=== PATIENT | female | born 1975 | race Caucasian/White ===

== ENCOUNTER 2017-07-20 00:53 | Inpatient (IN) | payer OTHER ==
[2017-07-20] MEDS ORDERED: Morphine 4 MG/ML Carpuject ONE (02:23)
[2017-07-20] MEDS ORDERED: hydrALAZINE 25 MG TAB ONE (02:24)
[2017-07-20] MEDS ORDERED: Amlodipine 5 MG TAB ONE (02:24)
[2017-07-20] MEDS ORDERED: Morphine 2 MG/ML SYRINGE ONE (02:24)
[2017-07-20] MEDS ORDERED: Hydrochlorothiazide 25 MG TAB PO SCH (02:30)
[2017-07-20] MEDS ORDERED: Carvedilol 25 MG TAB PO SCH (02:30)
[2017-07-20] MEDS ORDERED: hydrALAZINE 20 MG/ML VIAL ONE (03:22)
[2017-07-20] MEDS ORDERED: Dextrose 5% in Water 1,000 ML IV PRN (04:26)
[2017-07-20] MEDS ORDERED: Ondansetron ODT 4 MG TAB PO PRN (04:26)
[2017-07-20] MEDS ORDERED: Dextrose 50% Abboject 50 ML SYRINGE SLOW IVP PRN (04:26)
[2017-07-20 04:29] VITALS: BMI 30.9
[2017-07-20] MEDS ORDERED: Labetalol HCl 100 MG/20 ML VIAL SLOW IVP PRN (04:53)
[2017-07-20] MEDS ORDERED: hydrALAZINE 20 MG/ML VIAL SLOW IVP PRN (04:53)
[2017-07-20] MEDS: Sodium Chloride 0.9% 1,000 ML IV SCH ×3 (05:01→17:14)
[2017-07-20] MEDS: Piperacillin/Tazobactam 3.375 GM in Sodium Chloride 0.9% 100 ML IVPB SCH ×2 (06:08→11:10)
[2017-07-20] MEDS: Morphine 4 MG/ML Carpuject SLOW IVP PRN ×4 (06:36→18:02)
--- NOTE | 2017-07-20 06:49 | HP-2 ---
DATE OF ADMISSION: 07/20/2017 CODE STATUS: FULL. PRIMARY CARE PHYSICIAN: None. ATTENDING: Dr. Caballero. RESIDENT: Dr. Morton. HISTORIAN: Self. CHIEF COMPLAINT: Foot pain. HISTORY OF PRESENT ILLNESS: This is a 41-year-old female with past medical history of diabetes, vinh nary artery disease, hypertension who presented due to sores on the right foot that has been there si . The patient reported that they started hurting worse 3-4 days ago. There was an e schar that developed on the toe and then on the ball of her foot, it got more and more painful like i t was infected. The patient has never had anything like this happened before and never had any episo mika of osteomyelitis in the past. She also reports never having any diabetic foot infections or ulce rs. The patient finished treatment for Bactrim resistant UTI 3 weeks ago with Keflex. She also lost her insurance about a year and a half ago and has been taking her blood pressure medicines and insul in, but has not been taking her oral diabetes medicines or Plavix. Her blood sugars have been runnin g in the 300-400 routinely. In the ER, she was given metoprolol 5 mg IV push x2, vancomycin 1 gram, Zosyn 3.375 grams, Novolin 10 units subcu, morphine 4 mg, Zofran 4 mg, Coreg 12.5 mg, hydralazine 50 mg, amlodipine 10 mg, morphine 6 mg, Humulin 10 mg IV push. PAST MEDICAL HISTORY: 1. Diabetes type 2. 2. Hypertension. 3. Coronary artery disease. 4. Chronic kidney disease stage 3. PAST SURGICAL HISTORY: 1. x2. 2. L5 through S1 diskectomy. 3. Tonsillectomy. ALLERGIES: LISINOPRIL. MEDICATIONS: 1. Metformin 1000 mg b.i.d. with meals. 2. Amlodipine 10 mg p.o. b.i.d. 3. Aspirin 325 mg p.o. daily. 4. Atorvastatin 20 mg p.o. at bedtime. 5. Carvedilol 12.5 mg p.o. b.i.d. 6. Glyburide 5 mg p.o. b.i.d. with meals. 7. Hydralazine 100 mg p.o. t.i.d. 8. Hydrochlorothiazide 12.5 mg p.o. daily. 9. Levemir 50 units subcutaneously b.i.d. FAMILY HISTORY: Mother with coronary artery disease at 58, diabetes, hyperlipidemia, hypertension. Paternal grandparents with diabetes. SOCIAL HISTORY: Used to smoke 1 pack per day for about 25 years, but since her heart attack, has onl y smoked few cigarettes a day. Drinks alcohol socially. Denies any drug use. REVIEW OF SYSTEMS: General: Denies fever, chills, fatigue. Eyes: Denies vision changes or eye pepito n. ENT: Positive for nasal congestion, rhinorrhea, sore throat. Respiratory: Positive for cough. Negative for shortness of breath. Cardiovascular: Negative for chest pain, edema. Gastrointestinal: Positive for nausea. Negative for vomiting. Positive for abdominal pain. Genitourinary: Positive for dysuria, polyuria. Skin: Positive for rashes, lesions. Musculoskeleta l: Positive for pain or tenderness. Neurologic: Negative for weakness, numbness. PHYSICAL EXAMINATION: VITAL SIGNS: Blood pressure 213/107, pulse 75, respiratory rate 18, temperature 98.8, pulse ox 97% o n room air. Current weight 99.7 kilograms. GENERAL: Alert, oriented x3, no acute distress, obese, appropriately interactive. EYES: Extraocular muscles intact. Conjunctivae within normal limits. ENT: Nasal mucosa within normal limits. NECK: Supple, no lymphadenopathy. CARDIOVASCULAR: Regular rate and rhythm. No murmurs, gallops, 2+ radial and pedal pulses. RESPIRATORY: Normal effort, no retractions, clear to auscultation bilaterally. SKIN: No cyanosis. Erythematous patch and the abdominal skin fold and right foot warmth and erythem a with an eschar over the right toe and fluctuance over the right ball of the foot with a callus. ABDOMEN: Soft, nontender to palpation. Normoactive bowel sounds. No mass or distention. EXTREMITIES: No cyanosis or edema. MUSCULOSKELETAL: Structure, tone within normal limits. Full range of motion. NEUROLOGIC: No focal deficits. GCS 15. PSYCHIATRIC: Appropriate. LABORATORY DATA AND X-RAY FINDINGS: WBC 11.0, hemoglobin 14.4, hematocrit 41.4, platelets 235. Sodi um 127, corrected to 135, potassium 3.8, chloride 91, CO2 23, BUN 19, creatinine 1.78, GFR 31, glucos e 590, calcium 9.6, AST 36, ALT 34, alkaline phosphatase 154, total bilirubin 0.4. ESR 73, lactic ac id 1.7. Beta hydroxybutyrate 0.08. Urinalysis showed trace blood, greater than 300 protein, positiv e nitrites, 500 glucose, 7-10 RBCs, 4-6 white blood cells and 4+ bacteria. Foot x-ray showed osteomy elitis of the distal phalanx of the right great toe with ulceration and wound involving the distal an d plantar aspect of the right great toe. ASSESSMENT AND PLAN: This is a 41-year-old female who presents with: 1. Acute osteomyelitis of the right great toe and infected diabetic wound. This is likely secondary to uncontrolled diabetes type 2. The patient has ESR of 73, osteo on x-ray, white count of 11.0. W e will consult surgery in the morning and make the patient n.p.o. Continue vancomycin and Zosyn. We will give NS at 175. We will treat with morphine for pain control. We will check blood cultures. 2. Hyperglycemia. The patient has not had good glucose control with her glucoses running, 300-400 l ately. We will give NS at 175. There is no concern at this time for diabetic ketoacidosis or hypero smolar hyperglycemic state. We will continue home Levemir dose with aggressive sliding scale insulin and Accu-Cheks a.c. and at bedtime. We will consult Case Management as the patient has lost her ins urance and is using her daughter's insulin, to try and help her find a better way to get her medicati ons. 3. Hypertensive urgency. Blood pressure greater than 200/100 in the ED. We will control with home blood pressure medicines, labetalol and hydralazine as needed. 4. Acute kidney injury on chronic kidney disease stage 3, likely secondary to hyperglycemia. We jared l give NS at 175 and repeat basic metabolic panel in the morning. 5. Urinary tract infection. The patient recently treated for urinary tract infection resistant to B actrim that was treated with Keflex, will likely be covered by vancomycin and Zosyn. We will check a urine culture and sensitivities from outside hospital. 6. Tinea cruris. We will treat with clotrimazole cream b.i.d. 7. Coronary artery disease. The patient no longer taking Plavix due to losing insurance, will mt nue aspirin. 8. Diabetes type 2. Hold metformin due to acute kidney injury. We will continue other home medicat ions, Accu-Cheks and sliding scale insulin. 9. Hypertension. Continue home medications. 10. Venous thromboembolism prophylaxis. Lovenox. DISPOSITION: Admit to medical. Symptomatic medications will be provided. History and physical exam as well as management discussed with Dr. Caballero.
[2017-07-20] MEDS: Hydrochlorothiazide 25 MG TAB PO SCH (08:51)
[2017-07-20] MEDS: Amlodipine 10 MG TAB PO SCH ×2 (08:51→20:38)
[2017-07-20] MEDS: hydrALAZINE 25 MG TAB PO SCH ×3 (08:52→20:38)
[2017-07-20] MEDS: glyBURIDE 5 MG TAB PO SCH ×2 (08:53→16:26)
[2017-07-20] MEDS: Carvedilol 25 MG TAB PO SCH ×2 (08:53→20:37)
[2017-07-20] MEDS: Enoxaparin Sodium 40 MG/0.4 ML SYRINGE SC SCH (08:55)
[2017-07-20] MEDS: Clotrimazole 1 % Cream 30 GM TUBE TOP SCH ×2 (08:55→20:44)
[2017-07-20] MEDS: Aspirin 325 MG TAB PO SCH (08:55)
[2017-07-20] MEDS: Insulin Detemir 100 UNITS/ML 50 UNITS in Pre-Filled Syringe 1 EACH SC SCH (09:00)
[2017-07-20] MEDS ORDERED: FLU VACC QS2017-18 36 mo. & older 0.5 ML SYRINGE IM ONE (09:00)
--- NOTE | 2017-07-20 10:49 | CON ---
DATE OF CONSULTATION: 07/20/2017 HISTORY OF PRESENT ILLNESS: Kiesha Goldman is a 41-year-old female diabetic with chronic kidney dise ase, hypertension on oral hypoglycemics at home. She was evaluated and admitted 07/20/2017 early thi s morning to [facility] because of pain in her foot. She has pain in her right great to e. She has developed a blister beneath the metatarsophalangeal joint of the great toe. She has a ca llus over the tip of the right great toe. The patient had been treated with Bactrim for a UTI recent ly. She has recently acquired insurance. Reported that her Accu-Cheks have been poorly controlled, 300-400 range. X-rays reveal osteomyelitis of the distal phalanx, right great toe, otherwise no othe r remarkable bony changes. ALLERGIES: LISINOPRIL. TOBACCO: A pack a week. ALCOHOL: Alcohol socially rarely. MEDICATIONS: At home, she is on insulin 50 units subcu b.i.d., glyburide 5 mg p.o. b.i.d., hydrochlo rothiazide 12.5 mg daily, Coreg 12.5 mg b.i.d., atorvastatin 20 mg at bedtime, aspirin 325 mg daily, amlodipine 10 mg b.i.d., metformin 1000 mg b.i.d., hydralazine 100 mg p.o. t.i.d. PAST SURGICAL HISTORY: Three C-sections, lumbar surgery. She has mild low back pain which she takes Aleve for. The patient had an echocardiogram 03/2016, Dr. Mckeon, LV function 50-55%, grade 2 of 3 diastolic dys function, left atrial enlargement, aortic valve sclerosis, mild MR, TR. Cardiac catheterization, Dr. Ma 03/2016; 40-50% stenosis, circumflex N0 M2. Right coronary was small with proximal occlus ion and bridging collaterals. 03/10/2017, nuclear stress test, 52% ejection fraction, hypokinesis of the inferior wall, perhaps artifactual. No definite reversible ischemia. CTA 03/09/2017 negative. PHYSICAL EXAMINATION: VITAL SIGNS: Height 5 foot 11, 221 pounds, 30 BMI, 98.6, 83, 166/87. HEENT: Unremarkable. LUNGS: Clear to auscultation. CARDIAC: Regular rate and rhythm without murmur or gallop. ABDOMEN: Soft, nontender, no masses. EXTREMITIES: Unremarkable. Palpable femoral, popliteal, dorsalis pedis, posterior tibial pulses. R ight great toe distal phalanx has a hypertrophic callus, but no obvious cellulitis. There is a blist er beneath the metatarsophalangeal joint of the right great toe. This is tender. There is no cellul itis. At the bedside with alcohol prep, I debrided a callus from the tip of the right great toe and the underlying tissue was healthy. There are no sinus tracts to the phalanx which has osteo radiolog ically. I debrided of the callus at the metatarsophalangeal joint of the right great toe and there i s a large undermining infection with pus which was cultured and drained and callus blistered tissue r emoved. Wound care applied a dressing. Beneath this callus on the right great toe which was culture d the underlying tissue is intact. There are no sinus tracts. ASSESSMENT AND PLAN: 1. Diabetic blister with infection beneath the metatarsophalangeal joint of the right great toe. Ra diologically there are no underlying infection or osteomyelitis. Would treat this with intravenous a ntibiotics. 2. Osteomyelitis of the right great toe distal phalanx. I have consulted Dr. Russell. The patient do es not need surgical intervention. I would await Dr. Russell's recommendation as far as antibiotics, p robably should avoid the combination of Zosyn and vancomycin due to the patient's chronic kidney dise ase. I will let Dr. Russell make these changes. I will need to see the patient as an outpatient in next 2 weeks to follow this wound. She should keep her weight off of her heel during her convalesc ed to avoid ulcerations. 3. Morbid obesity with BMI of 30. I encouraged weight reduction. 4. Type 2 diabetes mellitus, insulin-dependent. 5. Hypertension. 6. Chronic kidney disease. 7. Minimal coronary disease, status post cardiac catheterization and echocardiogram as noted above, LV function is normal, no definite evidence of coronary disease, no coronary history.
[2017-07-20] MEDS: Acetaminophen 325 MG TAB PO PRN ×2 (11:08→18:32)
[2017-07-20] MEDS ORDERED: Losartan 25 MG TAB PO SCH (11:30)
--- NOTE | 2017-07-20 11:41 | CON ---
DATE OF CONSULTATION: 07/20/2017 REASON FOR CONSULTATION: Elevated creatinine and proteinuria. HISTORY OF PRESENT ILLNESS: This is a very pleasant 41-year-old female with a history of known CKD a nd toxemia presented to the hospital with debridement of an ulcer of the foot. The patient at this t terrence denies any nausea, vomiting or chest pain. Patient has had diabetes and hypertension for many ye ars and has chronic kidney disease stage 3. The patient had taken lisinopril with a cough so quit ta cassy that in the past. The patient denies headache, numbness, tingling or weakness. Denies any diab etic retinopathy. PAST MEDICAL HISTORY: Type 2 diabetes mellitus, hypertension, coronary artery disease, chronic kidne y disease stage 3, , L5 lumbar surgery, tonsillectomy. ALLERGIES: LISINOPRIL. HOME MEDICATIONS: List reviewed. HOSPITAL MEDICATIONS: List reviewed. FAMILY HISTORY: Negative for ESRD. SOCIAL HISTORY: No alcohol or drug use. REVIEW OF SYSTEMS: Fifteen point review of systems was performed and negative except positives noted above. GENERAL: Weakness- HEAD: Headache- NECK: No swelling or lumps. NOSE: No epistaxis or discharge. EYES: No diplopia or pain. RESPIRATORY: Dyspnea- CARDIOVASCULAR: Chest pain- GASTROINTESTINAL: Nausea- /LOFT WORKER: Hematuria- MUSCULOSKELETAL: No joint pain. NEUROPSYCHIATIC SYSTEMS: No suicidal ideation. No ideation. SKIN: Denies any rash or ulcer. CONSTITUTIONAL: No fever or chills. PHYSICAL EXAMINATION: GENERAL: Patient is awake, alert. VITAL SIGNS: Afebrile, pulse 70, breathing at 16, blood pressure 166/87. OBJECTIVE: See above. Awake, alert, in no acute distress. GENERAL APPEARANCE AND MENTAL STATUS: Fair. HEAD/NECK: Normocephalic. Atraumatic. EYES: EOMI. No deformity. EARS: Clear. No ulcers. NOSE: Intact. No lesions. MOUTH: Clear. No discharge. THROAT: Clear. No exudate. LUNGS: Clear. No crackles. CARDIAC: S1, S2. No rub. ABDOMEN: Benign. BS+. GENITALIA/RECTUM: Sutherland absent. BACK/EXTREMITIES: Edema 0+ Ulcer- NEUROLOGICAL: Alert and motor intact. SKIN: Skin change per Dr. Amezcua. LYMPHATICS: Edema- Ulcer- LABORATORY: Creatinine 1.7 done yesterday. ASSESSMENT AND RECOMMENDATIONS: 1. Acute kidney injury with chronic kidney disease and proteinuria, most likely due to diabetic neph ropathy. Renal ultrasound was unremarkable done in 2016. I will modify risk factors and advised the patient for excellent diabetes control. 2. Anemia, stable. 3. Hypertension, stable. 4. Proteinuria, will start low dose of angiotensin receptor cesar and baseline creatinine. The risks versus benefits of all the above findings were discussed and all questions were answered.
[2017-07-20] MEDS: HumaLOG 300 UNITS/3 ML VIAL SC PRN (11:45)
[2017-07-20 12:12] LABS: Anion Gap 16 mmol/L (10-20); BUN (Urea Nitrogen) 15 mg/dL (7.0-18.7); Calc. Creatinine Clearance 78 mL/min (70-130); Calcium 8.5 mg/dL (7.8-10.44); Carbon Dioxide 19 mmol/L (22-29); Chloride 97 mmol/L (98-107); Estimated GFR-MDRD 39; Glucose 414 mg/dL (70-105); Potassium 4.5 mmol/L (3.5-5.1); Sodium 127 mmol/L (136-145)
--- NOTE | 2017-07-20 12:17 | OP ---
PREOPERATIVE DIAGNOSES: Blister infection, right foot plantar metatarsophalangeal joint without comm unication to the tissues and without radiological evidence of osteomyelitis. Osteomyelitis of the di stal phalanx of right great toe with overlying callus without underlying sinus tract. POSTOPERATIVE DIAGNOSES: Blister infection, right foot plantar metatarsophalangeal joint without com munication to the tissues and without radiological evidence of osteomyelitis. Osteomyelitis of the d istal phalanx of right great toe with overlying callus without underlying sinus tract. PROCEDURES: Sharp debridement excisional removal of diabetic callus, right great toe and excision of diabetic blistered skin. Sharp excision of skin only from the right great toe and underlying planta r right foot beneath the metatarsophalangeal joint of great toe. Culture and sensitivity of the puru lent material beneath the blister plantar right great toe. SURGEON: Dr. Devendra Amezcua. ANESTHESIA: None. Alcohol pad prep. DESCRIPTION OF PROCEDURE: The patient is in the bedside, alcohol pad prep used and skin and diabetic callus excised from the tip of the right great toe. Beneath that, there was no underlying sinus tra ct communication to deep tissues. This was superficial. The blister beneath the metatarsophalangeal joint of the right great toe was sharply excised and skin only, excising it with a 10 blade and using a 10 blade for both the right great toe and plantar foot . Underlying tissue was intact without deep sinus tracts to the underlying tissue. Wound care team arrived and placed a wound dressing.
[2017-07-20] MEDS ORDERED: cefTRIAXone\\ROCEPHIN 2 GM in Sodium Chloride 0.9% 100 ML IVPB SCH (13:00)
[2017-07-20] MEDS: CEFTRIAXONE 2GM/50 ML BAG 2 GM in Premix Bag 1 BAG IVPB SCH (13:59)
[2017-07-20 14:43] LABS: Creatinine, Urine 42.21 mg/dL (47-110)
[2017-07-20] MEDS ORDERED: traMADol HCl 50 MG TAB PO SCH (14:45)
--- NOTE | 2017-07-20 14:50 | CON ---
DATE OF CONSULTATION: 07/20/2017 REASON FOR CONSULTATION: Right foot inflammatory process. HISTORY OF PRESENT ILLNESS: A 41-year-old whom I had seen in the past for complications related to type 2 diabetes mellitus and neuropathy with left first toe infection. At that time, she did not have evidence of osteomyelitis. At this time, she was brought in and admitted because of progressive worsening right foot pain associated with ulcerations in the bottom of the right foot and an eschar. She had no fever, but she felt chills, recently had been given treatment for "UTI" with Keflex. PAST MEDICAL HISTORY: Type 2 diabetes, hypertension, coronary artery disease, insufficiency stage 3. PAST SURGICAL HISTORY: , diskectomy L5-S1 and tonsillectomy. ALLERGIES: LISINOPRIL with cough. MEDICATIONS: Metformin, Norvasc, aspirin, atorvastatin, Coreg, glyburide, hydralazine and Levemir. FAMILY HISTORY: Coronary artery disease, diabetes and hypertension. SOCIAL HISTORY: Former smoker. PHYSICAL EXAMINATION: VITAL SIGNS: T-max 98.6, blood pressure 120/81, pulse 77, respirations 16 and O2 sat 97% to 98%. GENERAL: Appears in no distress, pleasant. SKIN: Remarkable for thick callus at the bottom of the first MPJ on admission and an ulcerated area at the tip of the toe with some swelling of the toe distal phalanx with minimal erythema. No lymphadenopathy. HEENT: Noncontributory. NECK: Supple. LUNGS: With symmetric clear breath sounds. HEART: S1, S2, regular rate. No S3 or S4. ABDOMEN: Soft, not distended or tender. No ascites. No bladder distention. EXTREMITIES: No joint inflammatory activity. Pulses are 1+ in dorsalis pedis and posterior tibialis. Able to move all extremities equally. NEUROLOGIC: Cognitive function appears to be intact. LABORATORY DATA: White cell count 11, hemoglobin 14, MCV 39, platelets 235 with normal differential. Sodium 130 and creatinine 1.78. Baseline is 1.02. The last liver profile from this admission with slight elevation AST and alkaline phosphatase, bilirubin normal. Troponin normal. Urinalysis with 4-6 wbc's. Microbiology: We have a toe bacterial culture, preliminary result with moderate gram-positive cocci to be further identified sharing negative influenza test. ASSESSMENT AND PLAN: Type 2 diabetes, neuropathy and this time, the right first toe, distal chronic ulcer with evidence of osteomyelitis by plain films. Dr. Amezcua did a limited incision and drainage and did not find any fistulous communication with bone. At this time, we will continue conservative management with IV antimicrobial therapy, PICC line placement and wait for the results of the culture and then plan disposition after that. MARIANA
[2017-07-20] MEDS ORDERED: Mag-Al 1200 mg/1200 mg/30 ML UDCUP PO PRN (16:03)
[2017-07-20] MEDS: HumaLOG 300 UNITS/3 ML VIAL SC SCH (16:29)
[2017-07-20] MEDS ORDERED: Fluconazole 100 MG TAB PO SCH (17:00)
[2017-07-20] MEDS: Atorvastatin Calcium 20 MG TAB PO SCH (20:38)
[2017-07-20] MEDS ORDERED: Insulin Detemir 100 UNITS/ML 50 UNITS in Pre-Filled Syringe 1 EACH SC SCH (21:00)
[2017-07-20] MEDS: Vancomycin HCl 1.5 GM in Sodium Chloride 0.9% 250 ML 300 ML IVPB SCH (22:29)
[2017-07-20] MEDS: Morphine 2 MG/ML SYRINGE SLOW IVP PRN (22:29)
[2017-07-21] MEDS: Morphine 2 MG/ML SYRINGE SLOW IVP PRN ×5 (02:41→22:57)
[2017-07-21 04:25] LABS: #Basophils 0.1 thou/uL (0.0-0.2); #Eosinphils 0.2 thou/uL (0.0-0.7); #Lymphocytes 2.8 thou/uL (1.20-3.40); #Monocytes 0.3 thou/uL (0.11-0.59); #Neutrophils 5.4 thou/uL (1.40-6.50); %Basophils 1.1 % (0.0-1.0); %Eosinophils 1.9 % (0.0-10.0); %Lymphocytes 31.4 % (21.0-51.0); %Monocytes 3.8 % (0.0-10.0); %Neutrophils 61.8 % (42.0-75.0); Hemoglobin 12.7 g/dL (12.0-16.0); Mean Corpuscular HGB CONC 33.7 g/dL (32.0-36.0); Mean Corpuscular Hemoglobin 30.3 pg (27.0-31.0); Mean Corpuscular Volume 90.1 fl (81.0-99.0); Platelet Count 207 thou/uL (130-400); RBC Distribution Width 11.4 % (11.5-14.5); Red Blood Cell (RBC) Count 4.18 mill/uL (4.20-5.40); White Blood Cell (WBC) Count 8.8 thou/uL (4.8-10.8)
[2017-07-21 04:44] LABS: Anion Gap 13 mmol/L (10-20); BUN (Urea Nitrogen) 17 mg/dL (7.0-18.7); Calc. Creatinine Clearance 81 mL/min (70-130); Calcium 8.3 mg/dL (7.8-10.44); Carbon Dioxide 21 mmol/L (22-29); Chloride 99 mmol/L (98-107); Estimated GFR-MDRD 40; Glucose 402 mg/dL (70-105); Potassium 4.1 mmol/L (3.5-5.1); Sodium 129 mmol/L (136-145)
[2017-07-21] MEDS: HumaLOG 300 UNITS/3 ML VIAL SC PRN ×2 (04:54→20:32)
[2017-07-21] MEDS: Amlodipine 10 MG TAB PO SCH ×2 (07:53→20:31)
[2017-07-21] MEDS: Hydrochlorothiazide 25 MG TAB PO SCH (07:53)
[2017-07-21] MEDS: Carvedilol 25 MG TAB PO SCH ×2 (07:55→20:31)
[2017-07-21] MEDS: glyBURIDE 5 MG TAB PO SCH ×2 (07:56→17:00)
[2017-07-21] MEDS: hydrALAZINE 25 MG TAB PO SCH ×3 (07:56→20:30)
[2017-07-21] MEDS: Aspirin 325 MG TAB PO SCH (07:56)
[2017-07-21] MEDS: Enoxaparin Sodium 40 MG/0.4 ML SYRINGE SC SCH (07:57)
[2017-07-21] MEDS: Insulin Detemir 100 UNITS/ML 50 UNITS in Pre-Filled Syringe 1 EACH SC SCH (07:57)
[2017-07-21] MEDS: HumaLOG 300 UNITS/3 ML VIAL SC SCH ×3 (07:57→17:00)
[2017-07-21] MEDS: Clotrimazole 1 % Cream 30 GM TUBE TOP SCH ×2 (08:06→20:56)
[2017-07-21] MEDS ORDERED: Losartan 25 MG TAB PO SCH ×2 (09:00→11:00)
--- NOTE | 2017-07-21 11:06 | PDOC.FM ---
- Subjective Subjective: No acute events overnight. Denies cp, nvdc, sob. Pain improved. - Objective Vital Signs & Weight: Vital Signs (12 hours) Temp Pulse Resp BP BP Pulse Ox 07/21/17 08:00 98.3 F 73 16 96 07/21/17 07:56 73 157/95 H 07/21/17 07:53 73 157/95 H 07/21/17 07:23 98.3 F 73 16 157/95 H 96 Weight Admit Weight 100.38 kg Weight 100.38 kg I&O: 07/20/17 07/21/17 07/22/17 06:59 06:59 06:59 Intake Total 400 2861 Balance 400 2861 Result Diagrams: 07/21/17 03:39 07/21/17 03:39 Phys Exam - Physical Examination Constitutional: NAD HEENT: PERRLA, sclera anicteric Neck: no nodes, no JVD Respiratory: no wheezing, no rales, no rhonchi, clear to auscultation bilateral Cardiovascular: RRR, no significant murmur Gastrointestinal: soft, non-tender, no distention, positive bowel sounds Musculoskeletal: no edema, pulses present rt foot wound dressing in place Neurological: non-focal, moves all 4 limbs Skin: no rash Dx/Plan (1) Osteomyelitis Code(s): M86.9 - OSTEOMYELITIS, UNSPECIFIED Status: Acute (2) CKD (chronic kidney disease) stage 3, GFR 30-59 ml/min Status: Chronic (3) DM type 2 (diabetes mellitus, type 2) Status: Chronic Qualifiers: Diabetes mellitus complication status: with hyperglycemia Diabetes mellitus skilled nursing insulin use: with ocean transportation intermediary use Qualified Code(s): E11.65 - Type 2 diabetes mellitus with hyperglycemia; Z79.4 - extermination inspector (current) use of insulin (4) HTN (hypertension) Code(s): I10 - ESSENTIAL (PRIMARY) HYPERTENSION Status: Chronic Qualifiers: Hypertension type: essential hypertension Qualified Code(s): I10 - Essential (primary) hypertension (5) Hyponatremia Code(s): E87.1 - HYPO-OSMOLALITY AND HYPONATREMIA Status: Acute - Plan Plan: Osteo: ID consulted, continue IV abx, appreciate recs, micro gram + cocci and enterococcus Gen surg consulted, wound debrided, wound care, appreciate recs CKD: nephro consulted, no iv sticks above the wrist, per gen surg recs DMII: Elevated BS, increase meal time insulin to 20U, increase basal to 60U BID , aggressive SSI HTN: Increased bp, constinue current meds, maximize current medications as pressure tolerates
[2017-07-21] MEDS: CEFTRIAXONE 2GM/50 ML BAG 2 GM in Premix Bag 1 BAG IVPB SCH (11:42)
--- NOTE | 2017-07-21 11:43 | PRG ---
DATE OF SERVICE: 07/21/2017 SUBJECTIVE: Ms. Kiesha Goldman is doing well today. She is afebrile. Her sores on her foot has sli ghtly improved, although it still bothers her. Cultures from the purulent material beneath the blist er under her foot reveals Enterococcus. The patient has osteomyelitis of the right distal phalanx. Waiting Dr. Russell' recommendations as far as wound care. Patient has chronic kidney disease, I would avoid PICC lines in this population due to risk of future dialysis access and preserve her veins for dialysis access, so if she needs IV access long-term, she will need a Villalba catheter, which I can place Sunday morning on IV sedation. She could go home the same day after that procedure. We will a wait Dr. Russell' recommendations considering the microbiology. Chronic kidney disease. Dr. Hartley has seen her and will be following her as an outpatient. Medical problems in need of primary care physician. I have recommended she see [facility] for outpatient care. I have counseled her as far as weight reduction and asked dietary to see h er to talk to her about that to help control her diabetes.
[2017-07-21] MEDS: HYDROcodone/Acetaminophen 5/325 mg Tablet PO PRN ×3 (11:45→20:40)
--- NOTE | 2017-07-21 17:06 | PRG ---
DATE OF SERVICE: 07/21/2017 SUBJECTIVE: This is a 41-year-old female being seen for kidney disease stage 3. The patient denies any nausea, vomiting, or chest pain. PHYSICAL EXAMINATION: GENERAL: Patient is awake, alert. VITAL SIGNS: Afebrile, pulse 73, breathing at 16, blood pressure 157/95. HEAD/NECK: Normocephalic. Atraumatic. EYES: EOMI. No deformity. EARS: Clear. No ulcers. NOSE: Intact. No lesions. MOUTH: Clear. No discharge. THROAT: Clear. No exudate. LUNGS: Clear. No crackles. CARDIAC: S1, S2. No rub. ABDOMEN: Benign. BS+. GENITALIA/RECTUM: Sutherland absent. BACK/EXTREMITIES: Edema 0+ Ulcer- NEUROLOGICAL: Alert and motor intact. SKIN: Rash- Bruise- LYMPHATICS: Edema- Ulcer- LABORATORY DATA: Show hemoglobin 12.7, creatinine 1.4. ASSESSMENT AND RECOMMENDATIONS: 1. Chronic kidney disease, stage 3, stable. 2. Proteinuria, non-nephrotic range. We will increase the dose of ARB to 225 mg and check creatinin e in morning. 3. Hypertension, stable. 4. Sepsis. Management . No indication for dialysis at this time.
--- NOTE | 2017-07-21 19:42 | ADD-PRG ---
DATE OF SERVICE: 07/21/2017 The patient was seen, evaluated, examined, and discussed with the residents. Please see Dr. Karimi's note with which I concur. The patient is postop day from a right great toe and debridement for oste omyelitis, diabetic wound. Trying to control her sugars a little bit better and has been on vancomyc in and Zosyn and wound care. I think we are going to potentially be placing a PICC line for long-ter m IV antibiotics per Infectious Disease doctors.
[2017-07-21] MEDS: Atorvastatin Calcium 20 MG TAB PO SCH (20:31)
[2017-07-21] MEDS ORDERED: PRE FILLED SC SCH (21:00)
[2017-07-21] MEDS ORDERED: INSULIN DETEMIR SC SCH (21:00)
[2017-07-21 22:17] LABS: Vancomycin, Trough 8.1 ug/mL
[2017-07-21] MEDS: Vancomycin HCl 1.5 GM in Sodium Chloride 0.9% 250 ML 300 ML IVPB SCH (22:51)
[2017-07-22 04:26] LABS: #Eosinphils 0.1 thou/uL (0.0-0.7); #Lymphocytes 2.8 thou/uL (1.20-3.40); #Monocytes 0.3 thou/uL (0.11-0.59); #Neutrophils 3.8 thou/uL (1.40-6.50); %Basophils 0.3 % (0.0-1.0); %Eosinophils 1.2 % (0.0-10.0); %Lymphocytes 39.5 % (21.0-51.0); %Monocytes 4.6 % (0.0-10.0); %Neutrophils 54.4 % (42.0-75.0); Hemoglobin 11.7 g/dL (12.0-16.0); Mean Corpuscular HGB CONC 34.7 g/dL (32.0-36.0); Mean Corpuscular Hemoglobin 31.1 pg (27.0-31.0); Mean Corpuscular Volume 89.5 fl (81.0-99.0); Mean Platelet Volume 9.1 fL (7.4-10.4); Platelet Count 176 thou/uL (130-400); RBC Distribution Width 11.3 % (11.5-14.5); Red Blood Cell (RBC) Count 3.77 mill/uL (4.20-5.40); White Blood Cell (WBC) Count 7.1 thou/uL (4.8-10.8)
[2017-07-22 04:38] LABS: Anion Gap 15 mmol/L (10-20); BUN (Urea Nitrogen) 19 mg/dL (7.0-18.7); Calc. Creatinine Clearance 84 mL/min (70-130); Carbon Dioxide 19 mmol/L (22-29); Chloride 100 mmol/L (98-107); Estimated GFR-MDRD 42; Glucose 351 mg/dL (70-105); Potassium 4.5 mmol/L (3.5-5.1); Sodium 129 mmol/L (136-145)
[2017-07-22] MEDS: HumaLOG 300 UNITS/3 ML VIAL SC PRN ×2 (06:07→19:44)
[2017-07-22] MEDS: Hydrochlorothiazide 25 MG TAB PO SCH (08:55)
[2017-07-22] MEDS: Amlodipine 10 MG TAB PO SCH ×2 (08:55→19:38)
[2017-07-22] MEDS: Morphine 2 MG/ML SYRINGE SLOW IVP PRN ×4 (08:58→23:11)
[2017-07-22] MEDS: Carvedilol 25 MG TAB PO SCH ×2 (08:58→19:39)
[2017-07-22] MEDS ORDERED: PRE FILLED SC SCH ×2 (09:00→21:00)
[2017-07-22] MEDS ORDERED: INSULIN DETEMIR SC SCH ×2 (09:00→21:00)
[2017-07-22] MEDS: hydrALAZINE 25 MG TAB PO SCH ×3 (09:01→19:38)
[2017-07-22] MEDS: Losartan 25 MG TAB PO SCH (09:01)
[2017-07-22] MEDS: Aspirin 325 MG TAB PO SCH (09:01)
[2017-07-22] MEDS: Enoxaparin Sodium 40 MG/0.4 ML SYRINGE SC SCH (09:02)
[2017-07-22] MEDS: glyBURIDE 5 MG TAB PO SCH ×2 (09:02→17:33)
[2017-07-22] MEDS: HumaLOG 300 UNITS/3 ML VIAL SC SCH ×3 (09:02→17:34)
[2017-07-22] MEDS: Clotrimazole 1 % Cream 30 GM TUBE TOP SCH ×2 (09:03→22:04)
[2017-07-22] MEDS ORDERED: Insulin Detemir 100 UNITS/ML 10 UNITS in Pre-Filled Syringe 1 EACH SC SCH (10:00)
[2017-07-22] MEDS: Fluconazole 100 MG TAB PO SCH (10:27)
--- NOTE | 2017-07-22 10:49 | PDOC.FM ---
- Subjective Subjective: No acute events overnight. Pt reports pain in rt great toe. Denies cp, sob, NVDC , headache. - Objective Vital Signs & Weight: Vital Signs (12 hours) Temp Pulse Resp BP BP Pulse Ox 07/22/17 09:01 73 135/84 07/22/17 08:55 73 135/84 07/22/17 08:00 98.4 F 73 16 98 07/22/17 07:49 98.4 F 73 16 135/84 98 Weight Admit Weight 100.38 kg Weight 100.38 kg I&O: 07/21/17 07/22/17 07/23/17 06:59 06:59 06:59 Intake Total 2861 2632 Balance 2861 2632 Result Diagrams: 07/22/17 04:01 07/22/17 04:01 Phys Exam - Physical Examination Constitutional: NAD HEENT: PERRLA, sclera anicteric Neck: no nodes, no JVD Respiratory: no wheezing, no rales, no rhonchi, clear to auscultation bilateral Cardiovascular: RRR, no significant murmur, no rub Gastrointestinal: soft, non-tender, no distention, positive bowel sounds Musculoskeletal: no edema, pulses present rt foot wound dressing in place Neurological: non-focal, moves all 4 limbs Dx/Plan (1) Osteomyelitis Code(s): M86.9 - OSTEOMYELITIS, UNSPECIFIED Status: Acute (2) CKD (chronic kidney disease) stage 3, GFR 30-59 ml/min Status: Chronic (3) DM type 2 (diabetes mellitus, type 2) Status: Chronic Qualifiers: Diabetes mellitus complication status: with hyperglycemia Diabetes mellitus retirement insulin use: with rat exterminator use Qualified Code(s): E11.65 - Type 2 diabetes mellitus with hyperglycemia; Z79.4 - termite technician (current) use of insulin (4) HTN (hypertension) Code(s): I10 - ESSENTIAL (PRIMARY) HYPERTENSION Status: Chronic Qualifiers: Hypertension type: essential hypertension Qualified Code(s): I10 - Essential (primary) hypertension (5) Hyponatremia Code(s): E87.1 - HYPO-OSMOLALITY AND HYPONATREMIA Status: Acute - Plan Plan: vanc trough low, increase vanc to 2 grams/day, ID consulted appreciate recs will increase basal insulin to 70U ACHS meal time insulin increase to 30 TID-WM, and continue on aggressive SSI GWEN on CKD has improved, nephro consulted appreciate recs HTN increased per nephro, appreciate recs
--- NOTE | 2017-07-22 11:35 | PRG ---
DATE OF SERVICE: 07/22/2017 SUBJECTIVE: This is a 41-year-old female being seen for chronic kidney disease stage 3. The patient denies any nausea, vomiting, or chest pain. PHYSICAL EXAMINATION: GENERAL: Patient is awake, alert. VITAL SIGNS: Afebrile, pulse 73, breathing at 16, blood pressure 135/84. HEAD/NECK: Normocephalic. Atraumatic. EYES: EOMI. No deformity. EARS: Clear. No ulcers. NOSE: Intact. No lesions. MOUTH: Clear. No discharge. THROAT: Clear. No exudate. LUNGS: Clear. No crackles. CARDIAC: S1, S2. No rub. ABDOMEN: Benign. BS+. GENITALIA/RECTUM: [place] absent. BACK/EXTREMITIES: Edema 0+ Ulcer- NEUROLOGICAL: Alert and motor intact. SKIN: Rash- Bruise- LYMPHATICS: Edema- Ulcer- LABORATORY DATA: Show hemoglobin 9.7 and creatinine is 1.3. ASSESSMENT AND PLAN: 1. Chronic kidney disease stage 3, stable. 2. Proteinuria. We will recheck random urine protein creatinine ratio. Continue ARB. 3. Hypertension, improved. 4. Anemia, stable.
[2017-07-22] MEDS: HYDROcodone/Acetaminophen 5/325 mg Tablet PO PRN ×2 (12:32→17:38)
[2017-07-22] MEDS: cefTRIAXone\\ROCEPHIN 2 GM in Sodium Chloride 0.9% 100 ML IVPB SCH (12:32)
[2017-07-22] MEDS: Sodium Chloride 0.9% 1,000 ML IV SCH ×5 (12:42→21:14)
--- NOTE | 2017-07-22 16:16 | ADD-PRG ---
DATE OF SERVICE: 07/22/2017 Please see the note from Dr. Karimi for which I concur. The patient was seen and evaluated, examined and discussed with the residents by bedside. The patient is doing okay, quite a bit of pain current ly, after her debridement of her right great toe osteomyelitis. The plan is to place some kind of a semi-permanent catheter will be able to get her on IV antibiotics long-term, which is being guided by Infectious Disease. Otherwise, we were trying to increase her i nsulin to control her sugars better including mealtime sugars and sliding scale and then Levemir twic e daily, otherwise continue other medications.
[2017-07-22 18:04] LABS: Creatinine, Urine 48.94 mg/dL (47-110)
[2017-07-22] MEDS: Atorvastatin Calcium 20 MG TAB PO SCH (19:39)
[2017-07-23] MEDS: Morphine 2 MG/ML SYRINGE SLOW IVP PRN ×4 (03:49→23:23)
[2017-07-23 04:24] LABS: #Eosinphils 0.1 thou/uL (0.0-0.7); #Lymphocytes 2.7 thou/uL (1.20-3.40); #Monocytes 0.4 thou/uL (0.11-0.59); #Neutrophils 4.2 thou/uL (1.40-6.50); %Basophils 0.5 % (0.0-1.0); %Eosinophils 1.6 % (0.0-10.0); %Lymphocytes 36.5 % (21.0-51.0); %Monocytes 5.8 % (0.0-10.0); %Neutrophils 55.5 % (42.0-75.0); Hemoglobin 12.8 g/dL (12.0-16.0); Mean Corpuscular HGB CONC 35.4 g/dL (32.0-36.0); Mean Corpuscular Hemoglobin 32.4 pg (27.0-31.0); Mean Corpuscular Volume 91.4 fl (81.0-99.0); Mean Platelet Volume 9.5 fL (7.4-10.4); Platelet Count 185 thou/uL (130-400); RBC Distribution Width 11.5 % (11.5-14.5); Red Blood Cell (RBC) Count 3.95 mill/uL (4.20-5.40); White Blood Cell (WBC) Count 7.5 thou/uL (4.8-10.8)
[2017-07-23 04:44] LABS: Anion Gap 15 mmol/L (10-20); BUN (Urea Nitrogen) 17 mg/dL (7.0-18.7); Calc. Creatinine Clearance 73 mL/min (70-130); Carbon Dioxide 21 mmol/L (22-29); Chloride 100 mmol/L (98-107); Estimated GFR-MDRD 36; Glucose 362 mg/dL (70-105); Potassium 4.5 mmol/L (3.5-5.1); Sodium 131 mmol/L (136-145)
[2017-07-23] MEDS ORDERED: Sodium Chloride 0.9% 10 ML ONE (07:55)
[2017-07-23] MEDS ORDERED: Sodium Chloride 0.9% 1,000 ML IV SCH (08:00)
[2017-07-23] MEDS: Sodium Chloride 0.9% 1,000 ML IV SCH ×2 (08:07→08:11)
[2017-07-23] MEDS: glyBURIDE 5 MG TAB PO SCH ×2 (08:12→16:33)
[2017-07-23] MEDS: Hydrochlorothiazide 25 MG TAB PO SCH (08:12)
[2017-07-23] MEDS: Aspirin 325 MG TAB PO SCH (08:13)
[2017-07-23] MEDS: hydrALAZINE 25 MG TAB PO SCH ×3 (08:13→20:12)
[2017-07-23] MEDS: Losartan 25 MG TAB PO SCH (08:14)
[2017-07-23] MEDS: Fluconazole 100 MG TAB PO SCH (08:14)
[2017-07-23] MEDS: Amlodipine 10 MG TAB PO SCH ×2 (08:15→20:13)
--- NOTE | 2017-07-23 08:56 | PDOC.FM ---
- Subjective Subjective: Pt reports poor sleep overnight and some mild foot pain. Otherwise no acute events overnight. Pt will be having procedure done today with [place] for line access and uke operator IV abx use. Blood sugars continue to be elevated, but pt denies nvdc, polyuria, polydypsia. - Objective Vital Signs & Weight: Vital Signs (12 hours) Temp Pulse Resp BP BP Pulse Ox 07/23/17 08:15 71 150/76 H 07/23/17 08:13 71 150/76 H 07/23/17 07:27 98.2 F 71 18 150/76 H 95 Weight Admit Weight 100.38 kg Weight 100.38 kg I&O: 07/22/17 07/23/17 07/24/17 06:59 06:59 06:59 Intake Total 2632 980 Balance 2632 980 Result Diagrams: 07/23/17 03:41 07/23/17 03:41 Phys Exam - Physical Examination Constitutional: NAD HEENT: PERRLA, sclera anicteric Neck: no nodes, no JVD Respiratory: no wheezing, no rales, no rhonchi, clear to auscultation bilateral Cardiovascular: RRR, no significant murmur, no rub Gastrointestinal: soft, non-tender, no distention, positive bowel sounds Musculoskeletal: no edema, pulses present Neurological: non-focal, moves all 4 limbs Skin: no rash Dx/Plan (1) Osteomyelitis Code(s): M86.9 - OSTEOMYELITIS, UNSPECIFIED Status: Acute (2) CKD (chronic kidney disease) stage 3, GFR 30-59 ml/min Status: Chronic (3) DM type 2 (diabetes mellitus, type 2) Status: Chronic Qualifiers: Diabetes mellitus complication status: with hyperglycemia Diabetes mellitus shelter insulin use: with shelter use Qualified Code(s): E11.65 - Type 2 diabetes mellitus with hyperglycemia; Z79.4 - digital sales representative (current) use of insulin (4) HTN (hypertension) Code(s): I10 - ESSENTIAL (PRIMARY) HYPERTENSION Status: Chronic Qualifiers: Hypertension type: essential hypertension Qualified Code(s): I10 - Essential (primary) hypertension (5) Hyponatremia Code(s): E87.1 - HYPO-OSMOLALITY AND HYPONATREMIA Status: Acute - Plan Plan: persistently elevated bs, can be titrated OP, will not increase dose 2/2 pts NPO status and scheduled surg BP trended down with increase in htn meds, will monitor nephro consulted, appreciate recs for osteo, continue IV abx. ID consulted appreciate recs ckd: nephro consulted, appreciate recs vanc dose increased to 2 grams qd
[2017-07-23] MEDS ORDERED: INSULIN DETEMIR SC SCH (09:00)
[2017-07-23] MEDS ORDERED: PRE FILLED SC SCH (09:00)
[2017-07-23] MEDS: HumaLOG 300 UNITS/3 ML VIAL SC SCH ×3 (09:17→16:33)
[2017-07-23] MEDS: Enoxaparin Sodium 40 MG/0.4 ML SYRINGE SC SCH (09:18)
[2017-07-23] MEDS: Clotrimazole 1 % Cream 30 GM TUBE TOP SCH ×2 (09:21→20:24)
[2017-07-23] MEDS: Carvedilol 25 MG TAB PO SCH ×3 (09:21→20:13)
[2017-07-23] MEDS ORDERED: Ondansetron HCl/PF 4 MG/2 ML Vial IVP PRN (10:51)
[2017-07-23] MEDS ORDERED: Promethazine HCl 25 MG/ML VIAL SLOW IVP PRN (10:51)
[2017-07-23] MEDS ORDERED: Promethazine HCl 25 MG/ML VIAL IM PRN (10:51)
[2017-07-23] MEDS ORDERED: Midazolam HCl 2 mg/2 ml Vial ONE ×2 (11:02→11:20)
[2017-07-23] MEDS ORDERED: Bupivacaine PF 0.5% 30 ML VIAL ONE (11:17)
[2017-07-23] MEDS ORDERED: Lidocaine 1% w/Epinephrine 1:200K 30 ML VIAL ONE (11:17)
[2017-07-23] MEDS ORDERED: Sodium Chloride 0.9% 20 ML ONE (11:19)
[2017-07-23] MEDS ORDERED: Propofol 500 MG/50 ML VIAL ONE (11:20)
[2017-07-23] MEDS ORDERED: Fentanyl 100 MCG/2 ML VIAL ONE (11:20)
--- NOTE | 2017-07-23 12:20 | ADD-PRG ---
DATE OF SERVICE: 07/23/2017 This is an addendum to the note of Dr. Lamonte Karimi. Ms. Goldman was admitted with an osteomyelitis of her great toe. She is currently on broad spectrum a ntibiotics. Her blood glucose levels had been under very poor control and she is requiring large lazaro unts of insulin. I suggested we add metformin and Actos to give some insulin sensitization. She jared l follow up with her PCP upon discharge to continue a long course of IV antibiotics as well as aggres sive management and adjustment of her diabetic medications.
[2017-07-23] MEDS ORDERED: cefTRIAXone\\ROCEPHIN 1 GM VIAL ONE (12:29)
[2017-07-23] MEDS ORDERED: Bacitracin Zinc Ointment 30 gm TUBE ONE (12:38)
--- NOTE | 2017-07-23 12:55 | OP ---
PREOPERATIVE DIAGNOSES: Osteomyelitis, right great toe; diabetic callus plantar beneath the metatars ophalangeal joint of right great toe; and need of IV access due to chronic kidney disease and avoidan ce of PICC lines in midlines. POSTOPERATIVE DIAGNOSES: Osteomyelitis, right great toe; diabetic callus plantar beneath the metatar sophalangeal joint of right great toe; and need of IV access due to chronic kidney disease and avoida nce of PICC lines in midlines. PROCEDURE PERFORMED: Right IJ cuffed tunneled Villalba dual-lumen catheter. Fluoroscopy used for les s than 5 minutes. Ultrasound used for placement. SURGEON: Devendra Amezcua M.D. ANESTHESIA: LMA, local 0.25% Marcaine, 30 mL, mixed with 1% Xylocaine with epinephrine, 30 mL DESCRIPTION OF PROCEDURE: The patient was taken to the operating room where under general anesthesia , neck and chest were prepared with ChloraPrep, draped in routine fashion. Using ultrasound guidance , the right internal jugular vein was cannulated with trocar catheter. J-wire threaded. Trocar cath eter removed. Skin incised and enlarged sharply. Stab incision made in the right chest. Dual lumen Villalba catheter tunneled between the two incisions, placing the cuff beneath the skin exit site ove r the right chest, and catheter secured with 2 interrupted sutures of 3-0 Prolene. Biopatch, Dermabo nd, and sterile dressings applied. Dilator and pull-away sheath placed over the J-wire and internal jugular vein, and dilator and J-wire removed. Catheter placed with pull-away sheath after tailoring it to length and pull-away sheath removed. Fluoroscopically, catheter noted to be in good position. Each port aspirated blood and flushed saline solution and heparinized saline solution. Platysma sabrina roximated with 4-0 Monocryl, skin with subdermal 4-0 Monocryl and DermaGlue applied.
[2017-07-23] MEDS ORDERED: diphenhydrAMINE 50 MG/ML VIAL ONE (14:14)
[2017-07-23] MEDS ORDERED: Propofol 200 MG/20 ML VIAL ONE (14:14)
[2017-07-23] MEDS ORDERED: Ondansetron HCl/PF 4 MG/2 ML Vial ONE (14:14)
[2017-07-23] MEDS ORDERED: Lidocaine 1% PF 5 ML VIAL ONE (14:14)
[2017-07-23] MEDS: cefTRIAXone\\ROCEPHIN 2 GM in Sodium Chloride 0.9% 100 ML IVPB SCH (14:54)
--- NOTE | 2017-07-23 15:59 | RAD ---
PORTABLE AP CHEST RADIOGRAPH: Date: 07-23-17 History: Line placement. Comparison: 03-09-17 FINDINGS: There is a tunneled right internal jugular vein central venous catheter noted in place with the tip o verlying the proximal SVC. No pneumothorax is seen. Cardiac silhouette and pulmonary vasculature are within normal limits. The lungs are clear. No other interval change. IMPRESSION: Interval placement of a tunneled right internal jugular vein central catheter. No pneumothorax is see n. POS: [facility]
--- NOTE | 2017-07-23 16:19 | PDOC.EVN ---
Event Note - Event Note Event Note: I personally saw and examined the patient on 07/20/17. History, exam, assessment and plan discussed with Dr. Morton and agree with resident's documentation. Briefly this is a 41 yo WF with h/o Type 2 DM, HTN, CKD and CAD who presented with ulcer on right foot since Thanksgiving that has slowly been healing until 2 -3 days ago when she noted increased pain in the area. Has not noted any drainage but area on bottom of foot has become soft and mushy and more tender. Denies any fever/chills. Reports that her home BG has been in 300s. PE: Afebrile BP 213/107 P 75 RR 18 General: wd/wn WF in NAD Lungs: CTA b/l CV: RRR, no murmur Abd: soft, nt/nd Ext: Right with dressing in place- clean and intact Labs: WBC=11.0 Yvjoebr=676 Cr=1.78 ESR= 78 U/A 4+protein, (+) nitrites, 4+ bacteria Right foot x-ray- osteomyelitis of distal phalanx of right great toe A/P: 1) Osteomyelitis of right toe- continue Vanc and Zosyn. 2) Diabetic foot ulcer- surgery consulted and bedside debridement performed; continue wound care as per surgery; appreciate surgery assistance 3) Type 2 DM with hyperglycemia- insulin adjusted; continue close monitoring and adjust as indicated. 4) HTN urgency- BP improved; continue to monitor; home meds restarted and will adjust accordingly.
[2017-07-23] MEDS: metFORMIN 500 MG TAB PO SCH (16:31)
[2017-07-23] MEDS ORDERED: metFORMIN 500 MG TAB PO SCH (17:00)
[2017-07-23] MEDS: HumaLOG 300 UNITS/3 ML VIAL SC PRN ×2 (18:07→20:16)
[2017-07-23] MEDS: HYDROcodone/Acetaminophen 5/325 mg Tablet PO PRN ×2 (18:13→22:00)
--- NOTE | 2017-07-23 18:33 | PRG ---
DATE OF SERVICE: 07/23/2017 SUBJECTIVE: Patient was seen and examined at bedside and overnight events noted. Patient denies any shortness of breath or chest pain or palpitation. No history of nausea or vomiting or diarrhea or f ever or chills or cramps. OBJECTIVE: GENERAL: This is a well-built female, in no apparent distress. VITAL SIGNS: Temperature 98.5, pulse 72, respiratory rate 16, blood pressure 115/77. HEENT: Atraumatic, normocephalic, oral mucosa is moist. NECK: Supple. CARDIOVASCULAR: S1, S2 heard, rate and rhythm regular. RESPIRATORY: Clear to auscultation. GASTROINTESTINAL: Abdomen is soft. MUSCULOSKELETAL: No tenderness, no edema. DERMATOLOGIC: No skin rash. NEUROLOGIC: Alert and awake and oriented x3. No focal neurologic deficits. Moving all the extremit ies. PSYCHIATRIC: Mood and affect normal. LABORATORY DATA: Potassium is 4.5, BUN is 17, creatinine is 1.5. ASSESSMENT AND PLAN: 1. Acute kidney injury on chronic kidney disease, stage 3. Renal function is stable. 2. Proteinuria. Check urine studies. 3. Hypertension. 4. Anemia, stable. Plan is to monitor renal function. Avoid nephrotoxins.
[2017-07-23] MEDS: Atorvastatin Calcium 20 MG TAB PO SCH (20:13)
[2017-07-23] MEDS: INSULIN DETEMIR SC SCH (20:15)
[2017-07-23] MEDS: PRE FILLED SC SCH (20:15)
[2017-07-24] MEDS: Morphine 2 MG/ML SYRINGE SLOW IVP PRN ×4 (04:18→22:58)
[2017-07-24 04:42] LABS: #Basophils 0.1 thou/uL (0.0-0.2); #Eosinphils 0.1 thou/uL (0.0-0.7); #Lymphocytes 2.8 thou/uL (1.20-3.40); #Monocytes 0.4 thou/uL (0.11-0.59); #Neutrophils 4.2 thou/uL (1.40-6.50); %Basophils 0.9 % (0.0-1.0); %Eosinophils 1.7 % (0.0-10.0); %Lymphocytes 36.5 % (21.0-51.0); %Monocytes 5.8 % (0.0-10.0); %Neutrophils 55.2 % (42.0-75.0); Hemoglobin 11.7 g/dL (12.0-16.0); Mean Corpuscular HGB CONC 34.4 g/dL (32.0-36.0); Mean Corpuscular Hemoglobin 31.6 pg (27.0-31.0); Mean Corpuscular Volume 91.7 fl (81.0-99.0); Mean Platelet Volume 9.5 fL (7.4-10.4); Platelet Count 182 thou/uL (130-400); RBC Distribution Width 11.3 % (11.5-14.5); Red Blood Cell (RBC) Count 3.72 mill/uL (4.20-5.40); White Blood Cell (WBC) Count 7.6 thou/uL (4.8-10.8)
[2017-07-24 05:07] LABS: Anion Gap 14 mmol/L (10-20); BUN (Urea Nitrogen) 14 mg/dL (7.0-18.7); Calc. Creatinine Clearance 85 mL/min (70-130); Carbon Dioxide 21 mmol/L (22-29); Chloride 103 mmol/L (98-107); Estimated GFR-MDRD 42; Glucose 237 mg/dL (70-105); Sodium 134 mmol/L (136-145)
[2017-07-24] MEDS: HumaLOG 300 UNITS/3 ML VIAL SC PRN (06:14)
[2017-07-24] MEDS: Carvedilol 25 MG TAB PO SCH ×2 (08:17→20:32)
[2017-07-24] MEDS: hydrALAZINE 25 MG TAB PO SCH ×3 (08:18→20:31)
[2017-07-24] MEDS: metFORMIN 500 MG TAB PO SCH ×2 (08:21→16:27)
[2017-07-24] MEDS: Fluconazole 100 MG TAB PO SCH (08:21)
[2017-07-24] MEDS: Aspirin 325 MG TAB PO SCH (08:21)
[2017-07-24] MEDS: glyBURIDE 5 MG TAB PO SCH ×2 (08:21→16:28)
[2017-07-24] MEDS: Hydrochlorothiazide 25 MG TAB PO SCH (08:22)
[2017-07-24] MEDS: Losartan 25 MG TAB PO SCH (08:23)
[2017-07-24] MEDS: Amlodipine 10 MG TAB PO SCH ×2 (08:24→20:32)
[2017-07-24] MEDS: Enoxaparin Sodium 40 MG/0.4 ML SYRINGE SC SCH (08:24)
[2017-07-24] MEDS: PRE FILLED SC SCH ×2 (08:25→20:34)
[2017-07-24] MEDS: INSULIN DETEMIR SC SCH ×2 (08:25→20:34)
[2017-07-24] MEDS: HumaLOG 300 UNITS/3 ML VIAL SC SCH ×3 (08:27→17:41)
[2017-07-24] MEDS: Clotrimazole 1 % Cream 30 GM TUBE TOP SCH ×2 (08:32→20:33)
--- NOTE | 2017-07-24 09:02 | PDOC.FM ---
- Subjective Subjective: No acute events overnight. Pt reports some pain around procedure site. Denies chest pain, sob, nvdc. Denies fever, chills, sweats. - Objective Vital Signs & Weight: Vital Signs (12 hours) Temp Pulse Resp BP BP BP Pulse Ox 07/24/17 08:24 79 127/74 07/24/17 08:18 79 127/74 07/24/17 07:44 98.2 F 79 16 127/74 96 07/24/17 04:00 98.4 F 79 20 145/79 H 97 07/23/17 23:30 98.8 F 75 17 152/87 H 98 Weight Admit Weight 100.38 kg Weight 100.38 kg I&O: 07/23/17 07/24/17 07/25/17 06:59 06:59 06:59 Intake Total 980 2490 Balance 980 2490 Result Diagrams: 07/24/17 03:54 07/24/17 03:54 Phys Exam - Physical Examination Constitutional: NAD HEENT: PERRLA, sclera anicteric Neck: no nodes, no JVD Respiratory: no wheezing, no rales, no rhonchi, clear to auscultation bilateral Cardiovascular: RRR, no significant murmur, no rub Gastrointestinal: soft, non-tender, no distention, positive bowel sounds Musculoskeletal: no edema, pulses present bandages over rt 1st distal phalynx and mtp in place Neurological: non-focal, moves all 4 limbs Skin: no rash Dx/Plan (1) Osteomyelitis Code(s): M86.9 - OSTEOMYELITIS, UNSPECIFIED Status: Acute (2) CKD (chronic kidney disease) stage 3, GFR 30-59 ml/min Status: Chronic (3) DM type 2 (diabetes mellitus, type 2) Status: Chronic Qualifiers: Diabetes mellitus complication status: with hyperglycemia Diabetes mellitus terminal system operator insulin use: with terminal system operator use Qualified Code(s): E11.65 - Type 2 diabetes mellitus with hyperglycemia; Z79.4 - prison (current) use of insulin (4) HTN (hypertension) Code(s): I10 - ESSENTIAL (PRIMARY) HYPERTENSION Status: Chronic Qualifiers: Hypertension type: essential hypertension Qualified Code(s): I10 - Essential (primary) hypertension (5) Hyponatremia Code(s): E87.1 - HYPO-OSMOLALITY AND HYPONATREMIA Status: Acute - Plan Plan: HTN: BP has come down, continue current medications, will need op titration Osteo: line place by gen surg yesterday, will need care home abx. Appreciate recs. Will touch base with ID for antibiotic preferences/ scheduled f/u. Appreciate recs DMII: BS trended down with addition of metformin, continue accuchecks 80 U levemir BID, will need close OP f/u Hyponatremia: stable CKD: stable. Nephro consulted appreciate recs. Avoid nephrotoxic meds.
[2017-07-24] MEDS ORDERED: HYDROcodone/Acetaminophen 10/325 mg Tablet PO PRN ×2 (10:25)
--- NOTE | 2017-07-24 12:15 | RAD ---
PORTABLE UPRIGHT FRONTAL CHEST RADIOGRAPH: 07/24/2017 HISTORY: Evaluate chest following catheter placement. COMPARISON: 2016 FINDINGS: There is mild increased density in the right perihilar region, which could represent volume loss or i nfiltrate. Followup advised. No pneumothorax is seen. Inspiration is shallow. There is a right va scular catheter, distal tip overlying the expected location of the cavoatrial junction. IMPRESSION: Vascular catheter in place on the right. No lobar consolidation or alveolar edema. Increased nonspe cific density in the right perihilar region, for which followup is advised. POS: [facility]
[2017-07-24] MEDS: cefTRIAXone\\ROCEPHIN 2 GM in Sodium Chloride 0.9% 100 ML IVPB SCH (12:31)
[2017-07-24] MEDS: HYDROcodone/Acetaminophen 5/325 mg Tablet PO PRN (12:48)
--- NOTE | 2017-07-24 13:55 | ADD-PRG ---
DATE OF SERVICE: 07/24/2017 Ms. Goldman is resting quietly in bed in no distress. She has had her IV line placed. Her blood gluc ose levels are improving, though not still at goal. She is back on insulin and we have also restarte d her metformin 1000 mg p.o. b.i.d. She will continue to adjust her medications with her outpatient PCP. She will continue with IV antibiotics for the next 4-6 weeks as per recommendations of Dr. Mary diaz
--- NOTE | 2017-07-24 17:32 | PRG ---
DATE OF SERVICE: 07/24/2017 SUBJECTIVE: Ms. Goldman is doing well today. She is waiting for arrangements for outpatient IV antib iotics. She has a Villalba catheter in place. Actually, the wounds on her foot looks good. The woun d on the distal toe tip where she has osteomyelitis, distal phalanx looks good and is healing. There is no edema. The plantar wound looks good. We would recommend daily washing this with soap and kendra er, apply some antibiotic and Band-Aids. She can see me in the office in 2-3 weeks. Certainly, come to see when she completes her intravenous antibiotics for osteomyelitis, distal phalanx toe, great. I will see her as needed this hospitalization.
--- NOTE | 2017-07-24 20:44 | PRG ---
DATE OF SERVICE: 07/24/2017 SUBJECTIVE: Patient was seen and examined at bedside and overnight events noted. Patient denies any shortness of breath or chest pain or palpitation. No history of nausea or vomitin g or diarrhea or fever or chills or cramps. OBJECTIVE: GENERAL: This is a well-built female, in no apparent distress. VITAL SIGNS: Temperature 98.6, pulse 72, respiratory rate 18, blood pressure 120/72. HEENT: Atraumatic, normocephalic. Oral mucosa is moist NECK: Supple. CARDIOVASCULAR: S1 and S2 heard. Rate and rhythm regular. RESPIRATORY: Clear to auscultation. GASTROINTESTINAL: Abdomen is soft. MUSCULOSKELETAL: No tenderness. No edema. DERMATOLOGIC: No skin rash. NEUROLOGIC: Alert and awake and oriented X3, No focal neurologic deficits. Moving all the extremitie s. PSYCHIATRIC: Mood and affect normal. LABORATORY DATA: Potassium is 4.0, BUN 14, creatinine 1.3. ASSESSMENT AND PLAN: 1. Acute kidney injury on chronic kidney disease. 2. , stable. 3. Proteinuria. 4. Hypertension. 5. Anemia, stable. Renal function is stable. We will monitor.
[2017-07-24] MEDS ORDERED: Atorvastatin Calcium 40 MG TAB PO SCH (21:00)
--- NOTE | 2017-07-24 23:37 | EKG ---
Test Reason : PREOP Blood Pressure : / mmHG Vent. Rate : 072 BPM Atrial Rate : 072 BPM P-R Int : 136 ms QRS Dur : 098 ms QT Int : 444 ms P-R-T Axes : 013 -18 008 degrees QTc Int : 486 ms Normal sinus rhythm Minimal voltage criteria for LVH, may be normal variant Inferior infarct (cited on or before 06-MAR-2016) Abnormal ECG When compared with ECG of 09-MAR-2017 12:22, No significant change was found Confirmed by Jeffy ACEVES ([id number]) on 07/24/2017 11:37:06 PM Referred By: ANTONIA Confirmed By:Jeffy ACEVES
[2017-07-25] MEDS: Morphine 2 MG/ML SYRINGE SLOW IVP PRN ×2 (05:07→13:06)
[2017-07-25 05:13] LABS: #Eosinphils 0.2 thou/uL (0.0-0.7); #Monocytes 0.5 thou/uL (0.11-0.59); #Neutrophils 5.7 thou/uL (1.40-6.50); %Basophils 0.5 % (0.0-1.0); %Eosinophils 2.2 % (0.0-10.0); %Lymphocytes 31.4 % (21.0-51.0); %Monocytes 5.2 % (0.0-10.0); %Neutrophils 60.6 % (42.0-75.0); Hemoglobin 11.8 g/dL (12.0-16.0); Mean Corpuscular HGB CONC 33.4 g/dL (32.0-36.0); Mean Corpuscular Hemoglobin 30.9 pg (27.0-31.0); Mean Corpuscular Volume 92.4 fl (81.0-99.0); Platelet Count 183 thou/uL (130-400); RBC Distribution Width 11.4 % (11.5-14.5); Red Blood Cell (RBC) Count 3.81 mill/uL (4.20-5.40); White Blood Cell (WBC) Count 9.4 thou/uL (4.8-10.8)
[2017-07-25 05:23] LABS: Anion Gap 13 mmol/L (10-20); BUN (Urea Nitrogen) 12 mg/dL (7.0-18.7); Calc. Creatinine Clearance 103 mL/min (70-130); Calcium 8.3 mg/dL (7.8-10.44); Carbon Dioxide 21 mmol/L (22-29); Chloride 105 mmol/L (98-107); Estimated GFR-MDRD 53; Glucose 122 mg/dL (70-105); Potassium 3.9 mmol/L (3.5-5.1); Sodium 135 mmol/L (136-145)
[2017-07-25 08:05] VITALS: BP 151/91; TEMP 98.6
[2017-07-25] MEDS: PRE FILLED SC SCH (08:28)
[2017-07-25] MEDS: Enoxaparin Sodium 40 MG/0.4 ML SYRINGE SC SCH (08:28)
[2017-07-25] MEDS: INSULIN DETEMIR SC SCH (08:28)
[2017-07-25] MEDS: Fluconazole 100 MG TAB PO SCH (08:29)
[2017-07-25] MEDS: Losartan 25 MG TAB PO SCH (08:30)
[2017-07-25] MEDS: Carvedilol 25 MG TAB PO SCH ×2 (08:30→15:53)
[2017-07-25] MEDS: hydrALAZINE 25 MG TAB PO SCH ×2 (08:30→15:53)
[2017-07-25] MEDS: Aspirin 325 MG TAB PO SCH (08:30)
[2017-07-25] MEDS: Hydrochlorothiazide 25 MG TAB PO SCH (08:30)
[2017-07-25] MEDS: glyBURIDE 5 MG TAB PO SCH ×2 (08:30→15:53)
[2017-07-25] MEDS: metFORMIN 500 MG TAB PO SCH ×2 (08:31→15:53)
[2017-07-25] MEDS: HumaLOG 300 UNITS/3 ML VIAL SC SCH (08:32)
[2017-07-25] MEDS: Amlodipine 10 MG TAB PO SCH (08:32)
[2017-07-25] MEDS: HYDROcodone/Acetaminophen 5/325 mg Tablet PO PRN (08:39)
[2017-07-25] MEDS: Clotrimazole 1 % Cream 30 GM TUBE TOP SCH (08:42)
--- NOTE | 2017-07-25 09:08 | PDOC.FM ---
- Subjective Subjective: Pt doing well and no complaints. Wishes to go home. Denies cp, sob, nvdc - Objective Vital Signs & Weight: Vital Signs (12 hours) Temp Pulse Resp BP Pulse Ox 07/25/17 08:00 98.6 F 87 16 151/91 H 96 07/25/17 06:37 98.5 F 84 18 154/83 H 98 Weight Admit Weight 100.38 kg Weight 100.38 kg I&O: 07/24/17 07/25/17 07/26/17 06:59 06:59 06:59 Intake Total 2490 2673 Balance 2490 2673 Result Diagrams: 07/25/17 04:44 07/25/17 04:44 Phys Exam - Physical Examination Constitutional: NAD HEENT: PERRLA, sclera anicteric Neck: no nodes, no JVD, supple Respiratory: no wheezing, no rales, no rhonchi, clear to auscultation bilateral Cardiovascular: RRR, no significant murmur, no rub Gastrointestinal: soft, non-tender, no distention, positive bowel sounds Musculoskeletal: no edema, pulses present Neurological: non-focal, normal sensation, moves all 4 limbs Dx/Plan (1) Osteomyelitis Code(s): M86.9 - OSTEOMYELITIS, UNSPECIFIED Status: Acute (2) CKD (chronic kidney disease) stage 3, GFR 30-59 ml/min Status: Chronic (3) DM type 2 (diabetes mellitus, type 2) Status: Chronic Qualifiers: Diabetes mellitus complication status: with hyperglycemia Diabetes mellitus fdc insulin use: with fdc use Qualified Code(s): E11.65 - Type 2 diabetes mellitus with hyperglycemia; Z79.4 - FDC (current) use of insulin (4) HTN (hypertension) Code(s): I10 - ESSENTIAL (PRIMARY) HYPERTENSION Status: Chronic Qualifiers: Hypertension type: essential hypertension Qualified Code(s): I10 - Essential (primary) hypertension (5) Hyponatremia Code(s): E87.1 - HYPO-OSMOLALITY AND HYPONATREMIA Status: Acute - Plan Plan: Pt stable for dc and f/u with gen surg in 2-3 weeks as well as ID OP f/u for osteo spoke with family preservation caseworker who is facilitating DC planning blood sugars have improved, continue current regimen. will need OP f/u HTN: persistent, increase coreg. Will need OP monitoring
--- NOTE | 2017-07-25 11:56 | ADD-PRG ---
DATE OF SERVICE: 07/25/2017 This is an addendum to the note of Dr. Lamonte Karimi. Ms. Goldman is resting comfortably in bed. No acute problems. Her blood glucose levels are much impr robbie. We will continue her on Levemir insulin as well as metformin and premeal Humalog. She is read y for discharge to follow up with her PCP for further adjustment of her diabetic medications and foll ow her IV antibiotic therapy.
[2017-07-25] MEDS ORDERED: HumaLOG 300 UNITS/3 ML VIAL SC SCH (12:00)
--- NOTE | 2017-07-25 12:26 | PRG ---
DATE OF SERVICE: 07/25/2017 SUBJECTIVE: Patient was seen and examined at bedside and overnight events noted. Patient denies any shortness of breath or chest pain or palpitation. No history of nausea or vomiting or diarrhea or f ever or chills or cramps. OBJECTIVE: GENERAL: This is a well-built female in no apparent distress. VITAL SIGNS: Temperature 98.6, pulse 77, respiratory 16, and blood pressure 151/91. HEENT: Atraumatic, normocephalic, Oral mucosa is moist. Neck: Supple. Cardiovascular: S1 and S2 heard. Rate and rhythm regular. Respiratory: Clear to auscultation. Gastrointestinal: Abdomen is soft. Musculoskeletal : No tenderness, No edema. Dermatologic : No skin rash. Neurologic: Alert and awake and oriented X3, No focal neurologic deficits. Moving all the extremitie s. Psychiatric: Mood and affect normal. LABORATORY DATA: Potassium is 3.9, BUN is 12, creatinine was 1.1. ASSESSMENT AND PLAN: 1. Acute kidney injury on chronic kidney disease, stage 3. Renal function was much better. 2. Hypertension. 3. Edema, controlled. 4. Proteinuria. 5. Anemia. 6. Overall, renal function is stable. I will sign off. Please call back with any questions. Avoid nephrotoxins and monitor renal function.
[2017-07-25] MEDS: cefTRIAXone\\ROCEPHIN 2 GM in Sodium Chloride 0.9% 100 ML IVPB SCH (12:45)
== END 2017-07-25 15:45 | disposition home or self-care (01) | DRG 623 ==
LOC: ERS 00:53 → T4-A 02:15
PROVIDERS: ADMIT Emergency Medicine; ATTEND Emergency Medicine
PROC: 0HBMXZZ Excision of Right Foot Skin, External Approach (ICD-10-PCS; principal; 2017-07-20)
PROC: 0JBQ0ZZ Excision of Right Foot Subcutaneous Tissue and Fascia, Open Approach (ICD-10-PCS; 2017-07-20)
PROC: 02HV33Z Insertion of Infusion Device into Superior Vena Cava, Percutaneous Approach (ICD-10-PCS; 2017-07-23)
DX: E11.69 Type 2 diabetes mellitus with other specified complication (principal); M86.171 Other acute osteomyelitis, right ankle and foot; E11.40 Type 2 diabetes mellitus with diabetic neuropathy, unspecified; E11.621 Type 2 diabetes mellitus with foot ulcer; E11.21 Type 2 diabetes mellitus with diabetic nephropathy; N17.9 Acute kidney failure, unspecified; N18.3 Chronic kidney disease, stage 3 (moderate); E87.1 Hypo-osmolality and hyponatremia; B35.6 Tinea cruris; N39.0 Urinary tract infection, site not specified; M86.671 Other chronic osteomyelitis, right ankle and foot; E11.65 Type 2 diabetes mellitus with hyperglycemia; D63.1 Anemia in chronic kidney disease; L97.511 Non-pressure chronic ulcer of other part of right foot limited to breakdown of skin; F17.210 Nicotine dependence, cigarettes, uncomplicated; I12.9 Hypertensive chronic kidney disease with stage 1 through stage 4 chronic kidney disease, or unspecified chronic kidney disease; I25.10 Atherosclerotic heart disease of native coronary artery without angina pectoris; S90.931A Unspecified superficial injury of right great toe, initial encounter; L08.9 Local infection of the skin and subcutaneous tissue, unspecified; I16.0 Hypertensive urgency; M25.774 Osteophyte, right foot; S90.421A Blister (nonthermal), right great toe, initial encounter; R80.9 Proteinuria, unspecified; E11.22 Type 2 diabetes mellitus with diabetic chronic kidney disease; E66.01 Morbid (severe) obesity due to excess calories; Z68.30 Body mass index [BMI] 30.0-30.9, adult; Z79.4 Long term (current) use of insulin; Z91.19 Patient's noncompliance with other medical treatment and regimen
CPT/HCPCS: 36415; 36416; 71045; 80048; 80202; 82570; 84156; 85025; 87070; 87077; 87186; 87205; 90471; 90682; 93005; 93010; 96374; 96375; A4216; C1751; G0008; J0360; J0696; J1200; J1642; J1650; J1815; J2001; J2250; J2270; J2405; J2543; J2704; J3010; J3370; J7050; Q0162; Q2036; S0020

== ENCOUNTER 2017-09-04 15:20 | Inpatient (IN) | payer OTHER ==
[~2017-09-04 15:20] MED LIST: Gadobenate Dimeglumine 529 MG/1 ML (20ML VIAL) ONE
[2017-09-04 16:36] LABS: #Basophils 0.1 thou/uL (0.0-0.2); #Eosinphils 0.1 thou/uL (0.0-0.7); #Lymphocytes 2.6 thou/uL (1.20-3.40); #Monocytes 0.4 thou/uL (0.11-0.59); #Neutrophils 6.4 thou/uL (1.40-6.50); %Basophils 1.3 % (0.0-1.0); %Eosinophils 1.3 % (0.0-10.0); %Lymphocytes 26.8 % (21.0-51.0); %Monocytes 4.4 % (0.0-10.0); %Neutrophils 66.3 % (42.0-75.0); Hemoglobin 10.6 g/dL (12.0-16.0); Mean Corpuscular HGB CONC 34.1 g/dL (32.0-36.0); Mean Corpuscular Hemoglobin 29.9 pg (27.0-31.0); Mean Corpuscular Volume 87.9 fl (81.0-99.0); Mean Platelet Volume 10.6 fL (7.4-10.4); Platelet Count 174 thou/uL (130-400); RBC Distribution Width 11.3 % (11.5-14.5); Red Blood Cell (RBC) Count 3.55 mill/uL (4.20-5.40); White Blood Cell (WBC) Count 9.7 thou/uL (4.8-10.8)
[2017-09-04] MEDS ORDERED: Morphine 10 MG/ML VIAL ONE (16:36)
[2017-09-04] MEDS ORDERED: Ondansetron HCl/PF 4 MG/2 ML Vial ONE (16:36)
[2017-09-04 16:45] LABS: ALT (SGPT) 23 U/L (8-55); AST (SGOT) 23 U/L (5-34); Albumin 3.6 g/dL (3.5-5.0); Alkaline Phosphatase 101 U/L (40-150); Anion Gap 13 mmol/L (10-20); BUN (Urea Nitrogen) 19 mg/dL (7.0-18.7); Bilirubin, Total 0.3 mg/dL (0.2-1.2); Calc. Creatinine Clearance 0 mL/min (70-130); Calcium 7.9 mg/dL (7.8-10.44); Carbon Dioxide 24 mmol/L (22-29); Chloride 102 mmol/L (98-107); Estimated GFR-MDRD 36; Globulin 2.7 g/dL (2.4-3.5); Glucose 326 mg/dL (70-105); Potassium 4.3 mmol/L (3.5-5.1); Protein, Total 6.3 g/dL (6.0-8.3); Sodium 135 mmol/L (136-145)
[2017-09-04 16:46] LABS: CRP (Inflammatory) 0.78 mg/dL (= or < 0.5)
--- NOTE | 2017-09-04 17:09 | RAD ---
RIGHT FOOT THREE VIEWS 09/04/17 COMPARISON: 07/19/17. HISTORY: Pain. Osteomyelitis. FINDINGS: Redemonstration of cortical irregularity involving the distal aspect of the distal phalanx of the fir st digit. Mild soft tissue swelling. No additional osseous abnormalities. Lisfranc alignment is maint ained. IMPRESSION: Persistent irregularity involving the distal aspect of the distal phalanx of the first digit. Underly ing osteomyelitis cannot be excluded. POS: [facility]
[2017-09-04] MEDS ORDERED: metroNIDAZOLE 500 MG/100 ML BAG ONE (17:53)
[2017-09-04] MEDS ORDERED: cefTRIAXone\\ROCEPHIN 2 GM VIAL ONE (17:53)
[2017-09-04] MEDS ORDERED: Sodium Chloride 0.9% 100 ML ONE (17:54)
--- NOTE | 2017-09-04 19:39 | MRI ---
MRI LUMBAR SPINE WITH AND WITHOUT CONTRAST 09/04/17 HISTORY: Pain/eval for osteomyelitis. COMPARISON: None. FINDINGS: The aorta is nonaneurysmal. Paraspinal musculature is unremarkable. There is advanced degenerative disease between the L4-L5 disc spaces with adventitial bursitis with a ssociated inflammatory enhancement. Marrow signal of the lumbar spine is normal. No evidence of marrow signal replacement due to osteomye litis. L4-L5: There is a circumferential disc bulge with left paracentral and subforaminal disc extrusion. T his abuts the traversing left L5 nerve root. This also causes moderate right sided neural foraminal n arrowing and moderate left sided neural foraminal narrowing. There is some inflammatory enhancement a round this disc extrusion which extends caudally. At L5-S1, there is a circumferential disc osteophyte complex, moderate facet arthrosis along with mod erate right and mild left sided neural foraminal narrowing. At L4-L5, the spinal canal is narrowed to approximately 7 mm. The conus medullaris terminates at the superior end plate of L1. IMPRESSION: 1. Circumferential disc bulge at L4-5 with superimposed left paracentral and lateral recess disc extrusion extending caudally and abutting the traversing left L5 nerve root likely the source of pat ient's pain. 2. Mild bilateral neural foraminal narrowing at L4-5 and L5-S1 due to disc protrusion and facet arthropathy. 3. Mild narrowing of the spinal canal at L4-5 to approximately 7 mm. 4. Moderately advanced degenerative disease of L4 and L5 spinous processes with adventitial burs itis. No definite evidence of osteomyelitis. POS: [facility]
[2017-09-05 00:22] VITALS: BMI 35.4
[2017-09-05] MEDS: HYDROcodone/Acetaminophen 5/325 mg Tablet PO PRN ×4 (00:58→20:16)
[2017-09-05] MEDS: Carvedilol 25 MG TAB PO SCH ×3 (01:07→17:38)
[2017-09-05] MEDS: hydrALAZINE 25 MG TAB PO SCH ×4 (01:08→20:16)
[2017-09-05] MEDS: Amlodipine 10 MG TAB PO SCH ×2 (01:09→20:17)
[2017-09-05] MEDS: metroNIDAZOLE 500 MG in Premix Bag 1 BAG IVPB SCH ×2 (01:10→05:17)
[2017-09-05] MEDS ORDERED: Insulin Detemir 100 UNITS/ML 80 UNITS in Pre-Filled Syringe 1 EACH SC SCH ×2 (01:15→21:00)
[2017-09-05] MEDS ORDERED: Dextrose 5% in Water 1,000 ML IV PRN (02:25)
[2017-09-05] MEDS ORDERED: Dextrose 50% Abboject 50 ML SYRINGE SLOW IVP PRN (02:25)
[2017-09-05] MEDS: Morphine 5 MG/ML SYRINGE SLOW IVP PRN ×3 (02:55→21:23)
[2017-09-05 03:16] LABS: Hemoglobin A1c 7.7 % (4.0-6.0)
[2017-09-05 03:32] LABS: BHCG - Serum Negative (NEGATIVE); Pregs Control Background? CLEAR/WHITE (CLR/WHITE); Pregs Control Bar Appear? YES (CONTROL BAR)
--- NOTE | 2017-09-05 04:13 | HP ---
CHIEF COMPLAINT: Left foot swelling and pain. HISTORY OF PRESENT ILLNESS: A 41-year-old female who was recently hospitalized , discharged with osteo of the right foot, status post course of IV antibiotics , which she completed approximately 2 days ago. However, over the last week, the patient has been complaining of increased swelling of her left lower extremity, which is not the extremity that had osteomyelitis and ulcers previously. The patient states that she has chronic lower back pain with herniated disks in multiple levels, which she has gotten several of them fixed, but the others are still outstanding. She states that she used to have severe shooting pain for the last 18 years, but the last 5 years, it has been mostly quiescent until few days prior to presentation. She is complaining of severe shooting pain on that left side that is causing her some intermittent ambulatory dysfunction at home. REVIEW OF SYSTEMS: As per HPI. Constitutional: No recent fevers or chills. HEENT: No any lightheadedness or dizziness. Cardiovascular: No any chest pain or chest pressure. Respiratory: No any upper respiratory infections, no cough, no congestion. No nausea, no vomiting, no abdominal pain, no issues with diarrhea or constipation. Musculoskeletal: Please see discussion above with some ambulatory and gait disturbances. PAST MEDICAL HISTORY: As per above, 1. History of disk extrusions. 2. Obesity. 3. Type 2 diabetes. 4. Hypertension. 5. Coronary artery disease. 6. Right foot ulcers. 7. Chronic kidney disease stage 3. 8. Status post x2. 9. Status post L5-S1 diskectomy. 10. Tonsillectomy. HOME MEDICATIONS: Please see EMR for full details. The patient denies any recent changes to her home regimen. ALLERGIES: LISINOPRIL. FAMILY HISTORY: No family history of recurrent infection issues. SOCIAL HISTORY: The patient lives at home. Denies any recent heavy lifting. No tobacco, alcohol, or illicit drug use, although the patient endorses a remote history of cocaine use. PHYSICAL EXAMINATION: VITAL SIGNS: Temperature of 98.5, pulse of 85, respirations 20, satting 92%, better on room air, last blood pressure 200/102. GENERAL: The patient is awake, alert, appropriate, lying in the hospital bed, in no acute distress, provides a history as above. She is a reasonable historian. HEENT: Moist mucous membranes. Equal ocular motions are intact. CARDIOVASCULAR: S1, S2. Pulses 2+ bilateral upper extremities, no pitting pedal edema. Soft heart tones likely secondary to habitus. RESPIRATORY: Limited anterior examination. Reasonable air movement. No dyspnea with conversation. No wheezes, rales, or rhonchi. ABDOMEN: Obese, positive bowel sounds, soft, nontender to palpation. MUSCULOSKELETAL: Moving all 4 extremities independently. No gross gait dysfunction noted. SKIN: Right foot ulcer is noted without any surrounding erythema. Two ulcers noted. One at base of the first metatarsal, one at the tip of the first metatarsal. LABORATORY DATA AND IMAGING: WBC 9.7, hemoglobin 10.6, hematocrit 31.2, platelets 174. Sodium 135, potassium 4.3, chloride 102, bicarbonate 24, BUN 19 , creatinine 1.59, glucose 326, calcium 7.9, AST 23, total bilirubin 0.3, ALT 23 , alkaline phosphatase 101. CRP 0.78, total protein 6.3, albumin 3.6, lipase 26. On 09/04/2017, right foot 3 view x-rays, impression, "persistent irregularity involving the distal aspect of the distal phalanx of the first digit. Underlying osteomyelitis cannot be excluded." On 09/04/2017 at 1615, lumbar spine MRI. Impression "circumferential disk bulge at L4-L5 with superimposed left paracentral lateral recess disk extrusion extending caudally and between the traversing left L5 nerve root, likely the source of the patient' s pain. Mild bilateral neural foraminal narrowing at L4-L5 and L5-S1 due to disk protrusion and facet arthropathy. Mild narrowing of the spinal canal at L4 -L5 to approximately 7 mm. Moderately advanced degenerative disease of the L4 and L5 spinous processes with adventitial bursitis. No definite evidence of osteomyelitis." ASSESSMENT AND PLAN: A 41-year-old female who presents with lower extremity pain. 1. Right lower extremity, history of osteomyelitis with ulcerations in 2 spots on her lower extremity. The patient has been placed on metronidazole from the emergency department. Would appreciate Infectious Disease consultation given the patient's known history and concern for complicated infection. 2. Left lower extremity pain, likely secondary to her disk extrusion. The patient has known history of multiple lumbar spinal issues in the past. The patient's complaints on the left side are more consistent with a spinal entrapment etiology as opposed to relationship to her right foot osteomyelitis. 3. Uncontrolled type 2 diabetes. Check hemoglobin A1c. Reinitiate the patient 's home insulin regimen along with a sliding scale insulin on top as needed. 4. Hypertension. Resume the patient's home antihypertensive regimen. Recheck her blood pressures carefully as the patient currently has hypertensive urgency. 5. Pain control. The patient currently takes Tylenol #4 on an outpatient basis. We will provide a stepwise regimen for the patient while she is inpatient. I have already discussed with the patient laid out the expectations that at the time of discharge, she will be discharged back to her home regimen without any anticipated need for advancement of her narcotic regimen at this point in time. 6. History of chronic renal disease with a component of acute renal injury. The patient's baseline creatinine appears to be lower than what it is today. Check urine electrolytes. Check renal ultrasound in the morning and closely monitor patient's intake and output. 7. Diet: Diabetic. 8. Activity: As tolerated, walking program, PT. 9. Deep venous thrombosis prophylaxis, heparin. Thank you for asking me to care for you the patient. Questions or concerns, contact me at [facility]. MARIANA
[2017-09-05 04:35] LABS: Amphetamine Not Detected (NotDetected); Barbiturates Screen Not Detected (NotDetected); Benzodiazepine Screen Not Detected (NotDetected); Cocaine Metabolite Screen Detected (NotDetected); Medtox Control Line Valid? VALID (VALID); Medtox Reader # READER 4; Methadone Not Detected (NotDetected); Methamphetamine Not Detected (NotDetected); Opiate Screen Detected (NotDetected); Oxycodone Screen Not Detected (NotDetected); Phencyclidine (PCP) Not Detected (NotDetected); THC/Cannabinoid Screen Not Detected (NotDetected); Tricyclic Screen Not Detected (NotDetected)
[2017-09-05] MEDS: Acetaminophen/Codeine 30-300mg Tablet PO PRN ×3 (05:16→17:36)
[2017-09-05] MEDS: Insulin Regular 300 UNITS/3 ML VIAL SC PRN ×2 (05:29→20:14)
--- NOTE | 2017-09-05 07:24 | ULT ---
LEFT LOWER EXTREMITY VENOUS DOPPLER: HISTORY: Lower extremity pain. COMPARISON: None. FINDINGS: Real-time, conn scale, color flow, and spectral analysis of the left lower extremity venous system wa s performed with a linear ray transducer. The left common femoral, femoral, proximal portion greater saphenous and deep femoral veins as well as the popliteal and posterior tibial veins were interrogat ed. Normal flow, augmentation, and compression. IMPRESSION: No deep vein thrombosis. POS: SHANTANU
[2017-09-05] MEDS: Aspirin 325 MG TAB PO SCH (08:17)
[2017-09-05] MEDS: HumaLOG 300 UNITS/3 ML VIAL SC SCH ×3 (08:20→17:39)
[2017-09-05] MEDS: metFORMIN 500 MG TAB PO SCH ×2 (08:23→18:39)
--- NOTE | 2017-09-05 08:48 | ULT ---
BILATERAL RENAL ULTRASOUND: HISTORY: Chronic lung disease, acute renal insufficiency. FINDINGS: The right kidney measures 11.2 cm in length and the left kidney measures 11.9 cm in length. No hydro nephrosis on either side. There is a 1.2 cm cyst in the right mid kidney. The urinary bladder is ma rkedly distended with a volume of 1160 cc. IMPRESSION: 1. Right renal cyst. 2. Distended urinary bladder. POS: SHANTANU
[2017-09-05] MEDS ORDERED: Hydrochlorothiazide 25 MG TAB PO SCH (09:00)
[2017-09-05] MEDS ORDERED: Losartan 25 MG TAB PO SCH (09:00)
[2017-09-05] MEDS ORDERED: Pre-Filled Syringe 1 EACH SC SCH ×2 (09:00→21:00)
[2017-09-05] MEDS: Insulin Detemir 100 UNITS/ML 80 UNITS in Pre-Filled Syringe 1 EACH SC SCH ×3 (09:42→14:26)
[2017-09-05] MEDS ORDERED: cefTRIAXone\\ROCEPHIN 2 GM in Sodium Chloride 0.9% 100 ML IVPB SCH (13:00)
--- NOTE | 2017-09-05 13:15 | PDOC.PN ---
- Subjective Encounter Start Date: 09/05/17 Encounter Start Time: 12:50 Subjective: f/u for acute/subacute osteomyelitis R great toe initially given Vancomycin -: Rocephin and Metronidazole. - Objective MAR Reviewed: Yes Vital Signs & Weight: Vital Signs (12 hours) Temp Pulse Resp BP Pulse Ox 09/05/17 09:43 78 154/91 H 09/05/17 08:00 98.4 F 78 16 171/98 H 09/05/17 07:30 98.4 F 78 16 194/93 H 100 09/05/17 04:20 98.5 F 75 19 152/87 H 99 09/05/17 01:09 85 09/05/17 01:08 85 Weight Weight 219 lb 12.814 oz Result Diagrams: 09/04/17 16:20 09/04/17 16:20 Additional Labs: Accuchecks 09/05/17 09/05/17 11:39 05:28 POC Glucose 427 H 444 H Laboratory Tests 09/04/17 09/04/17 09/05/17 16:20 16:20 02:30 ESR Westergren 37 H Hemoglobin A1c C-Reactive Protein 0.78 H Urine Opiates Screen Detected H U Cocaine Metab Screen Detected H 09/05/17 03:01 ESR Westergren Hemoglobin A1c 7.7 H C-Reactive Protein Urine Opiates Screen U Cocaine Metab Screen Radiology Reviewed by me: Yes (R great toe - distal phalanx with irregular cortex) Phys Exam - Physical Examination Constitutional: NAD HEENT: PERRLA, oral pharynx no lesions Neck: no JVD, supple Respiratory: no wheezing, clear to auscultation bilateral Cardiovascular: RRR Gastrointestinal: soft, non-tender, no distention, positive bowel sounds Musculoskeletal: no edema, pulses present Neurological: normal sensation, moves all 4 limbs Psychiatric: A&O x 3 Deviation from normal: R great toe with minimal distal superficial ulcer + ulcer plantar aspect R MTP region, + bleeding Skin: normal turgor, cap refill <2 seconds Dx/Plan (1) Toe osteomyelitis, right Code(s): M86.9 - OSTEOMYELITIS, UNSPECIFIED Status: Chronic Comment: Likely subacute osteomyelitis, ID consult, continue Vancomycin, Rocephin and Metronidazole, WCT for local care (2) GWEN (acute kidney injury) Code(s): N17.9 - ACUTE KIDNEY FAILURE, UNSPECIFIED Status: Acute Comment: Mild GWEN, avoid nephrotoxic meds and limit contrast exposure (3) CKD (chronic kidney disease) stage 3, GFR 30-59 ml/min Status: Chronic (4) DM type 2 (diabetes mellitus, type 2) Status: Chronic Qualifiers: Diabetes mellitus complication status: with hyperglycemia Diabetes mellitus wwe wrestler insulin use: with wwe wrestler use Qualified Code(s): E11.65 - Type 2 diabetes mellitus with hyperglycemia; 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 Comment: Continue Levemir 80u sc BID, Metformin 100mg BID, ISS, A1C = 7.7 (5) HTN (hypertension) Code(s): I10 - ESSENTIAL (PRIMARY) HYPERTENSION Status: Chronic Qualifiers: Hypertension type: essential hypertension Qualified Code(s): I10 - Essential (primary) hypertension Comment: Continue Coreg, Hydralazine, HCTZ, Losartan and Amlodipine, monitor serially (6) Cocaine abuse Code(s): F14.10 - COCAINE ABUSE, UNCOMPLICATED Status: Acute Comment: Will offer rehab services as outpt (7) Radiculopathy Code(s): M54.10 - RADICULOPATHY, SITE UNSPECIFIED Status: Suspected Qualifiers: Spinal region: lumbosacral Qualified Code(s): M54.17 - Radiculopathy, lumbosacral region Comment: Neurosurgery evaluation for options of mgmt, likely will need outpt referral to PT, pain control as tolerated - Plan continue antibiotics, PT/OT, social security assessor Stable overall -: Continue Vancomycin, Rocephin and Metronidazole -: WCT with local care -: ID consult pending -: PT evaluation * AM lab: BMP, CBC
[2017-09-05] MEDS ORDERED: Vancomycin HCl 1 GM in Premix Bag 1 BAG IVPB SCH ×2 (14:00→15:00)
--- NOTE | 2017-09-05 15:53 | CON ---
DATE OF CONSULTATION: 09/05/2017 REASON FOR CONSULTATION: Foot inflammatory process with osteomyelitis. HISTORY OF PRESENT ILLNESS: A 41-year-old whom I had seen recently when she had debridement of the r ight first metatarsophalangeal joint skin site associated with diabetes mellitus type 2 and neuropath y. There was some evidence of osteo on plain films. Dr. Amezcua did a limited incision and debrideme nt, did not find any communication with bone. Therefore, she was treated with conservative managemen t with vancomycin and Rocephin geared towards the isolates, which included Enterococcus and MSSA. Th e patient received treatment for about 42 days and then she went to the emergency room yesterday renetta use of low back pain and while there, they looked at her foot and were concerned with the appearance, called me and discussed me over the phone. She was eventually transferred to the hospital for admis gus. Right now, she is feeling better. She had a limited debridement by Dr. Amezcua of her callus. She does not have adequate footwear. No headaches, visual symptoms, sore throat, odynophagia or dys phagia. Right Villalba catheter site appears normal. No respiratory symptoms or abdominal pain, no d iarrhea. PAST MEDICAL HISTORY: Type 2 diabetes, hypertension, neuropathy, coronary artery disease with osteom yelitis and right first metacarpophalangeal joint site. PAST SURGICAL HISTORY: Diskectomy L5-S1 and tonsillectomy. ALLERGIES: LISINOPRIL. MEDICATIONS: Metformin, Norvasc, aspirin, atorvastatin, Coreg, glyburide, hydralazine and Levemir. FAMILY HISTORY: Coronary artery disease, diabetes and hypertension. SOCIAL HISTORY: Former smoker. PHYSICAL EXAMINATION: VITAL SIGNS: T-max 98.5, blood pressure 150/90, pulse 78, respirations 16 and O2 sat 100%. SKIN: Right first toe with a very shallow ulceration in the first and metatarsal phalangeal skin sit e. No bone exposure. The wound is actually markedly improved from previous findings, but she has on ly shallow little small ulcerations at the tip of the right first toe. No other skin lesions, no lym phadenopathy. HEENT: Noncontributory. The patient has a Villalba in the right subclavian location. NECK: Supple. LUNGS: With symmetric clear breath sounds. HEART: S1 and S2. No S3, S4 or murmurs. ABDOMEN: Soft, not distended or tender. No ascites. No bladder distention. EXTREMITIES: No other joint inflammatory process. NEUROLOGIC: Nonfocal. LABORATORY DATA: White cell count 9.7, hemoglobin 10 and platelets 174, normal differential. Creati nine is 1.59, which is fairly stable. IMAGING DATA: X-ray showed no changes in the previously noted areas of irregularity at the distal as pect and distal phalanx of the first digit. ASSESSMENT: 1. Type 2 diabetes with neuropathy. 2. Recent treatment for osteomyelitis of the right first MTP site and distal digit. 3. Concerns expressed by the ER physician that was seen her for an unrelated problem, which led to t he current admission. DISCUSSION: The findings are actually very benign in the toe and in fact, there has been quite a bit of improvement since the last visit. She has completed antimicrobial therapy. No further treatment with antimicrobials required at this point in time. Discontinue antimicrobials and consider dischar ge home for followup in 6 weeks. I would keep the Villalba catheter in place until I see her and then can be removed if things are looking positive in the clinical and radiological aspect of followup as sessment.
[2017-09-05] MEDS ORDERED: metroNIDAZOLE 500 MG in Premix Bag 1 BAG IVPB SCH (18:00)
[2017-09-05] MEDS: Atorvastatin Calcium 40 MG TAB PO SCH (20:16)
--- NOTE | 2017-09-05 23:14 | OP ---
DATE OF PROCEDURE: 09/05/2017 PREOPERATIVE DIAGNOSIS: Diabetic callus, plantar right foot beneath the metatarsophalangeal joint. POSTOPERATIVE DIAGNOSIS: Diabetic callus, plantar right foot beneath the metatarsophalangeal joint. PROCEDURE: Sharp debridement and excision of diabetic callus skin with findings of a superficial ulc eration just in the skin not deep. No evidence of infection, no need for antibiotics from the MTP st andpoint. SURGEON: Devendra Amezcua M.D. PROCEDURE IN DETAIL: At the patient's bedside, the right foot plantar callus was prepared with alcoh ol and skin debrided sharply, excising callus skin. There was some undermining beneath the callus an d this was debrided sharply. There was some slight necrotic skin debrided sharply. I reached health y tissue and this did not expend to the subcutaneous tissues. Sterile dressing applied. Patient sari erated the procedure well. RECOMMENDATIONS: Wash the foot with soap and water daily and place antibiotic ointment and Band-Aid. Follow up with Podiatry or me in 4-6 weeks.
--- NOTE | 2017-09-05 23:31 | CON ---
DATE OF CONSULTATION: 09/05/2017 HISTORY OF PRESENT ILLNESS: Kiesha Goldman is a 41-year-old female who I had seen previously, placed a Villalba catheter for intravenous antibiotics for osteomyelitis of right great toe distal phalanx. She had an intact skin. She did have a plantar diabetic callus that I debrided previously. She sta suze it has been causing her increased pain. The patient is admitted this hospitalization. X-rays of right foot reveals no significant change from the past x-ray. Dr. Russell has been consulted. Recent ly, the patient and Dr. Russell discussed removal of her Villalba catheter. She also has chronic back p ain with MRI showing a herniated disk and Neurosurgery has been consulted. PAST MEDICAL HISTORY: Lumbar herniated disk, obesity, type 2 diabetes mellitus, hypertension, hamlin ry artery disease, chronic kidney disease stage 3, status post . PAST SURGICAL HISTORY: L5-S1 diskectomy, tonsillectomy, osteomyelitis of right great toe distal phal anx, with Villalba catheter undergoing recent antibiotic administration. PHYSICAL EXAMINATION: VITAL SIGNS: 5 feet 6, 219 pounds, 39 BMI. Temperature 98.1, respiration 78, blood pressure 180/104 . LUNGS: Clear to auscultation. CARDIAC: Regular rate and rhythm without murmur. ABDOMEN: Soft, nontender, no masses. EXTREMITIES: Unremarkable. Palpable pedal pulses. Right great toe reveals no evidence of infection . Beneath the greater metatarsophalangeal joint, right foot, there is a callus that is very tender. At the bedside, I debrided this callus with an alcohol prep. There were some undermining ulceration , but is superficial and should heal without problems. LABORATORY DATA: White count 9, hemoglobin 10.6. Accu-Cheks 400, hemoglobin A1c 7.7, BUN 19, creatinine 1.59, GFR 36. ASSESSMENT AND PLAN: 1. Osteomyelitis, right great toe distal phalanx, responding well to antibiotics, treatment per Dr. Russell. 2. Callus plantar right foot debrided at the bedside, which has been done, the wound looks good. e should see a care process manager or me periodically to have this debrided. 3. When she is done with this hospitalization and does not need IV anymore, I could take her Villalba catheter out at bedside, if Dr. Russell is done using it. 4. Herniated disk await neurosurgery input. 5. Diabetes mellitus. 6. Obesity. 7. Hypertension. 8. Chronic kidney disease. 9. Metabolic syndrome. The patient would benefit from weight loss surgery. The patient is noted to have a lot of pain beneath the callus or MTP. There is no evidence of infection in the MTP. She oseguera s a lot of tenderness with the callus and this was debrided. She has tolerated well. I can remove t he Villalba catheter this hospitalization or as an outpatient later. At this point, I will see her as needed this hospitalization. Please call if necessary.
[2017-09-06] MEDS: Acetaminophen/Codeine 30-300mg Tablet PO PRN ×2 (01:15→08:27)
[2017-09-06] MEDS: HYDROcodone/Acetaminophen 5/325 mg Tablet PO PRN ×3 (02:37→21:59)
--- NOTE | 2017-09-06 04:27 | CON ---
DATE OF CONSULTATION: 09/06/2017 Drew Duggan PA-C dictating for Delfino Palencia M.D. This is a 50-minute initial patient consult in which greater than 50% of the exam was spent in counse ling and coordinating patient's care. Remainder of the exam was spent in review of patient's medical records and appropriate imaging studies. CHIEF COMPLAINT: Left leg pain. HISTORY OF PRESENT ILLNESS: Ms. Goldman is a 41-year-old female who was admitted to [facility] with complaints of left lower extremity pain. The patient has a history of right foot osteoarthri tis, treated with PICC line antibiotics, direction of Infectious Disease. The patient does have a hi story of undergoing a diskectomy at L5-S1 and the patient states this was on the left done in 1999. She states she has not had any difficulty with leg symptoms until the past 2-4 weeks. She states she has been very careful with lifting and activity due to the fact of her previous history. She does u se tobacco and is on 325 mg aspirin. She is a former cocaine user; however, states she has been drug free since her osteomyelitis began roughly 40 days ago. An MRI of the lumbar spine was done due to a low back and left buttock, posterior thigh, posterior calf pain into the plantar aspect of the foot . An MRI results show left L4-5 disk extrusions compressing the exiting L5 nerve root. PHYSICAL EXAMINATION: The patient is awake, alert, and appropriate. She does appear to have signifi cant pain with movement of the left lower extremity and it is somewhat difficult to assess her streng th in the left lower extremity. She has full strength in the right lower extremity. In regards of t he left leg strength, again she has a mild to moderate giveaway weakness in the quadriceps and iliops oas as well as in the hamstrings, and have positive straight leg raise on the left. She does, howeve r, have a good strength in the left dorsiflexion and plantar flexion. She has no worrisome myelopath ic features on exam including negative Mcnamara's bilaterally and no increased tone. IMPRESSION AND DIAGNOSES: 1. Left L4-L5 disk extrusion on the left. 2. Low back pain with left lower extremity pain. 3. History of L5-S1 diskectomy. PLAN: I have discussed the patient's case and imaging with Dr. Palencia. At this time, the patient do es not require a neurosurgical intervention as she has osteomyelitis infection which does not make he r a good surgical candidate. I discussed this in great detail with the patient as well as the import ance of conservative management until her osteomyelitis is resolved. She states that this time she r angela is not interested in undergoing surgery and would like to pursue conservative management which again will include injections and physical therapy. We will set up followup in the next 4-6 weeks to discuss the patient's progress and we may consider surgery at that time, but again we will need the patient to be free of her osteomyelitis. Please call with any questions or changes in patient's neur ologic status. Otherwise, we will follow up with her on an outpatient basis.
[2017-09-06 04:42] LABS: Anion Gap 14 mmol/L (10-20); BUN (Urea Nitrogen) 23 mg/dL (7.0-18.7); Calc. Creatinine Clearance 70 mL/min (70-130); Calcium 8.4 mg/dL (7.8-10.44); Carbon Dioxide 23 mmol/L (22-29); Chloride 98 mmol/L (98-107); Estimated GFR-MDRD 34; Glucose 326 mg/dL (70-105); Potassium 4.3 mmol/L (3.5-5.1); Sodium 131 mmol/L (136-145)
[2017-09-06 04:45] LABS: Band 1 % (5-11); Eosinophils 1 % (0-10); Hemoglobin 12.2 g/dL (12.0-16.0); Lymphocytes 28 % (21-51); MDiff Complete? YES; Mean Corpuscular HGB CONC 34.8 g/dL (32.0-36.0); Mean Corpuscular Hemoglobin 31.6 pg (27.0-31.0); Mean Corpuscular Volume 90.7 fl (81.0-99.0); Mean Platelet Volume 8.8 fL (7.4-10.4); Monocytes 4 % (0-10); Neutrophil 65 % (42-75); PLT Morphology Comment Appears Adequate; Platelet Count 205 thou/uL (130-400); RBC Distribution Width 11.5 % (11.5-14.5); Red Blood Cell (RBC) Count 3.85 mill/uL (4.20-5.40); White Blood Cell (WBC) Count 8.5 thou/uL (4.8-10.8)
[2017-09-06] MEDS: Morphine 5 MG/ML SYRINGE SLOW IVP PRN ×4 (07:04→23:44)
[2017-09-06] MEDS ORDERED: Artificial Tears 18 DROP/0.9 ML EA EYE PRN (07:34)
[2017-09-06] MEDS ORDERED: Loratadine 10 MG TAB PO PRN (07:34)
[2017-09-06] MEDS ORDERED: Sodium Chloride 0.65% Nasal 44 ML BOT EA NARE PRN (07:34)
[2017-09-06] MEDS ORDERED: Milk Of Magnesia 30 ML UDCUP PO PRN (07:34)
[2017-09-06] MEDS ORDERED: Chloraseptic Spray 180 ml Bottle PO PRN (07:34)
[2017-09-06] MEDS ORDERED: Loperamide HCl 2 MG CAP PO PRN (07:34)
[2017-09-06] MEDS ORDERED: Acetaminophen 325 MG TAB PO PRN (07:34)
[2017-09-06] MEDS ORDERED: hydrALAZINE 20 MG/ML VIAL SLOW IVP PRN (07:34)
[2017-09-06] MEDS ORDERED: Eucerin (Mineral Oil/Petrolatum,White) 30 gm Jar TOP PRN (07:34)
[2017-09-06] MEDS ORDERED: Diabetic Tussin 200 MG/10 ML UDCUP PO PRN (07:34)
[2017-09-06] MEDS ORDERED: Senokot 8.6 MG TAB PO PRN (07:34)
[2017-09-06] MEDS ORDERED: Mag-Al 1200 mg/1200 mg/30 ML UDCUP PO PRN (07:34)
[2017-09-06] MEDS ORDERED: Ondansetron ODT 4 MG TAB PO PRN (07:34)
[2017-09-06] MEDS: Hydrochlorothiazide 25 MG TAB PO SCH (08:31)
[2017-09-06] MEDS: Famotidine 20 MG TAB PO SCH ×2 (08:31→21:57)
[2017-09-06] MEDS: metFORMIN 500 MG TAB PO SCH ×2 (08:31→18:33)
[2017-09-06] MEDS: Losartan 25 MG TAB PO SCH (08:31)
[2017-09-06] MEDS: Amlodipine 10 MG TAB PO SCH (08:32)
[2017-09-06] MEDS: Carvedilol 25 MG TAB PO SCH ×2 (08:32→18:33)
[2017-09-06] MEDS: HumaLOG 300 UNITS/3 ML VIAL SC SCH ×3 (08:34→18:37)
[2017-09-06] MEDS ORDERED: ADMIXTURE FEE SC SCH ×2 (09:00→21:00)
[2017-09-06] MEDS ORDERED: INSULIN DETEMIR SC SCH ×2 (09:00→21:00)
--- NOTE | 2017-09-06 10:10 | PDOC.PN ---
- Subjective Encounter Start Date: 09/06/17 Encounter Start Time: 09:30 -: old records requested/rev pt has severe back pain, Patient seen and examined. No overnight events - Objective MAR Reviewed: Yes Vital Signs & Weight: Vital Signs (12 hours) Temp Pulse Resp BP BP Pulse Ox 09/06/17 08:32 85 155/104 H 09/06/17 08:00 97.8 F 85 16 137/95 H 100 09/06/17 06:38 98.5 F 80 18 164/100 H 97 09/06/17 00:00 98.5 F 82 20 167/91 H 98 Weight Admit Weight 219 lb 12.814 oz Weight 219 lb 12.814 oz Result Diagrams: 09/06/17 03:46 09/06/17 03:46 Additional Labs: Accuchecks 09/06/17 09/05/17 09/05/17 04:47 20:01 16:23 POC Glucose 283 H 442 H 462 H 09/05/17 11:39 POC Glucose 427 H Radiology Reviewed by me: Yes Phys Exam - Physical Examination Constitutional: NAD HEENT: PERRLA, moist MMs, sclera anicteric Neck: no JVD, supple Respiratory: no wheezing, no rales, no rhonchi Cardiovascular: RRR, no significant murmur, no rub Gastrointestinal: soft, non-tender, no distention, positive bowel sounds Musculoskeletal: no edema, pulses present Neurological: non-focal, normal sensation, moves all 4 limbs Psychiatric: normal affect, A&O x 3 Skin: no rash, normal turgor Dx/Plan (1) Lumbar disc disease with radiculopathy Code(s): M51.16 - INTERVERTEBRAL DISC DISORDERS W RADICULOPATHY, LUMBAR REGION Status: Chronic (2) Cocaine abuse Code(s): F14.10 - COCAINE ABUSE, UNCOMPLICATED Status: Acute Comment: (3) Anxiety and depression Code(s): F41.9 - ANXIETY DISORDER, UNSPECIFIED; F32.9 - MAJOR DEPRESSIVE DISORDER, SINGLE EPISODE, UNSPECIFIED Status: Chronic (4) CAD (coronary artery disease) Code(s): I25.10 - ATHSCL HEART DISEASE OF [place] CORONARY ARTERY W/O ANG PCTRS Status: Chronic Qualifiers: Coronary Disease-Associated Artery/Lesion type: [place] artery [place] vs. 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 Comment: (7) HTN (hypertension) Code(s): I10 - ESSENTIAL (PRIMARY) HYPERTENSION Status: Chronic Qualifiers: Hypertension type: essential hypertension Qualified Code(s): I10 - Essential (primary) hypertension Comment: (8) Obesity Code(s): E66.9 - OBESITY, UNSPECIFIED Status: Chronic Qualifiers: Obesity type: unspecified obesity type (9) Toe osteomyelitis, right Code(s): M86.9 - OSTEOMYELITIS, UNSPECIFIED Status: Resolved Comment: - Plan cont current plan of care * as per ID no need of antibiotics for now * neurosurgeon to decide about surgery for disc herniation * medication reviewed as below * symptomatic treatment * pain control * increase levemir 90 units sc AM and 80 unit sc PM * change to moderate scale insulin along with scheduled humalog TID. Review of Systems - Review of Systems Eyes: negative: Pain, Vision Change, Conjunctivae Inflammation, Eyelid Inflammation, Redness, Other ENT: negative: Ear Pain, Ear Discharge, Nose Pain, Nose Discharge, Nose Congestion, Mouth Pain, Mouth Swelling, Throat Pain, Throat Swelling, Other Respiratory: negative: Cough, Dry, Shortness of Breath, Hemoptysis, SOB with Excertion, Pleuritic Pain, Sputum, Wheezing Cardiovascular: negative: chest pain, palpitations, orthopnea, paroxysmal nocturnal dyspnea, edema, light headedness, other Gastrointestinal: negative: Nausea, Vomiting, Abdominal Pain, Diarrhea, Constipation, Melena, Hematochezia, Other Genitourinary: negative: Dysuria, Frequency, Incontinence, Hematuria, Retention , Other Musculoskeletal: Back Pain. negative: Neck Pain, Shoulder Pain, Arm Pain, Hand Pain, Leg Pain, Foot Pain, Other - Medications/Allergies Allergies/Adverse Reactions: Allergies Allergy/AdvReac Type Severity Reaction Status Date / Time lisinopril Allergy Anaphylaxis Verified 09/04/17 22:10 Medications: Current Medications Acetaminophen (Tylenol) 650 mg PO Q4H PRN PRN Reason: Headache/Fever or Mild Pain Acetaminophen/Codeine Phosphate (Tylenol #3) 1 tab PO Q4H PRN PRN Reason: Moderate Pain (4-6) Last Admin: 09/06/17 08:27 Dose: 1 tab Hydrocodone Bitart/Acetaminophen ([place] 5/325) 1 tab PO Q4H PRN PRN Reason: Pain 7-10 Last Admin: 09/06/17 02:37 Dose: 1 tab Al Hydroxide/Mg Hydroxide (Maalox) 15 ml PO Q4H PRN PRN Reason: Heartburn or Indigestion Amlodipine Besylate (Norvasc) 10 mg PO DAILY [facility] Last Admin: 09/06/17 08:32 Dose: 10 mg Artificial Tears (Tears Naturale) 0 drop EA EYE PRN PRN PRN Reason: Dry Eyes Aspirin (Aspirin) 325 mg PO DAILY [facility] Last Admin: 09/05/17 08:17 Dose: 325 mg Atorvastatin Calcium (Lipitor) 40 mg PO [facility] Last Admin: 09/05/17 20:16 Dose: 40 mg Carvedilol (Coreg) 25 mg PO BID-[facility] Last Admin: 09/06/17 08:32 Dose: 25 mg Dextrose/Water (Dextrose 50%) 25 gm SLOW IVP PRN PRN PRN Reason: Hypoglycemia Famotidine (Pepcid) 20 mg PO BID [facility] Last Admin: 09/06/17 08:31 Dose: 20 mg Glucagon (Glucagon) 1 mg IM PRN PRN PRN Reason: Hypoglycemia Guaifenesin (Robitussin Sf) 200 mg PO Q4H PRN PRN Reason: Cough Hydralazine HCl (Apresoline) 100 mg PO TID [facility] Last Admin: 09/05/17 20:16 Dose: 100 mg Hydralazine HCl (Apresoline) 10 mg SLOW IVP Q4H PRN PRN Reason: Systolic BP > 180 Hydrochlorothiazide (Hydrochlorothiazide) 25 mg PO DAILY [facility] Last Admin: 09/06/17 08:31 Dose: 25 mg Dextrose/Water (D5w) 1,000 mls @ 0 mls/hr IV .Q0M PRN; As Directed PRN Reason: Hypoglycemia Insulin Detemir 80 units/ (Miscellaneous Medication) 0.8 mls @ 0 mls/hr SC HS [facility] Insulin Detemir 90 units/ (Miscellaneous Medication) 0.9 mls @ 0 mls/hr SC QAM [facility] Insulin Human Lispro (Humalog) 0 units SC .MODERATE SLIDING SC PRN PRN Reason: Moderate Correctional Scale Insulin Human Lispro (Humalog) 0 units SC .BEDTIME SLIDING SC PRN PRN Reason: Bedtime Correctional Scale Insulin Human Lispro (Humalog) 15 units SC TID-[facility] Last Admin: 09/06/17 08:34 Dose: 15 unit Loperamide HCl (Imodium) 2 mg PO PRN PRN PRN Reason: Diarrhea/Loose Stools Loratadine (Claritin) 10 mg PO DAILYPRN PRN PRN Reason: Sinus Symptoms Losartan Potassium (Cozaar) 50 mg PO DAILY [facility] Last Admin: 09/06/17 08:31 Dose: 50 mg Magnesium Hydroxide (Milk Of Magnesium) 30 ml PO DAILYPRN PRN PRN Reason: Constipation Metformin HCl (Glucophage) 1,000 mg PO BID-[facility] Last Admin: 09/06/17 08:31 Dose: 1,000 mg Mineral Oil/White Petrolatum (Eucerin Cream) 0 gm TOP BIDPRN PRN PRN Reason: Dry Skin Morphine Sulfate (Morphine) 1 mg SLOW IVP Q8H PRN PRN Reason: Severe Pain (7-10) Last Admin: 09/06/17 07:04 Dose: 1 mg Ondansetron HCl (Zofran Odt) 4 mg PO Q6H PRN PRN Reason: Nausea/Vomiting Ondansetron HCl (Zofran) 4 mg IVP Q6H PRN PRN Reason: Nausea/Vomiting Phenol (Chloraseptic [place] 180 Ml Bot) 0 ml PO PRN PRN PRN Reason: Sore Throat Senna (Senokot) 2 tab PO HSPRN PRN PRN Reason: Constipation Sodium Chloride ([place] Nasal [place] 0.65%) 0 ml EA NARE QIDPRN PRN PRN Reason: Nasal Congestion Temazepam (Restoril) 15 mg PO HSPRN PRN PRN Reason: Insomnia
[2017-09-06] MEDS: Ondansetron HCl/PF 4 MG/2 ML Vial IVP PRN (11:33)
[2017-09-06] MEDS: Aspirin 325 MG TAB PO SCH (11:48)
[2017-09-06] MEDS: hydrALAZINE 25 MG TAB PO SCH ×3 (11:48→21:57)
--- NOTE | 2017-09-06 14:06 | PRG ---
DATE OF SERVICE: 09/06/2017 This is a 50 minute initial hospital visit note in which 50 minutes were spent in review the imaging, record, evaluation and examination of patient, and formulation of plan. Greater than 50% of the caitlyn e was spent in counseling on Kiesha Goldman. CHIEF COMPLAINT: Left L5 radiculopathy with left L4-L5 disk extrusion. HISTORY OF PRESENT ILLNESS: Ms. Goldman is a 41-year-old woman with complications of diabetes with bl ood sugars over 400 and even a recent right foot osteomyelitis which required an antibiotic. She has just completed her IV antibiotic regimen. I have spoken to Dr. Russell about her care. She also has a history of 2 myocardial infarcts at a young age and does have a positive cocaine in her recent urin e test, although the patient tells me the last time she did cocaine was 6 months ago. Nevertheless, we are consulted for the aforementioned low back and left lower extremity pain. Review of an MRI dem onstrates a left L4-L5 disk extrusion with caudal migration and compression of the traversing left L5 nerve root. Obviously I suspect this is the culprit of the patient's symptoms. PHYSICAL EXAMINATION: On exam, the patient is a quite tearful and presents in quite dramatic fashion . It is difficult to get an accurate exam; however, it appears that she has evidence of giveway weak ness as a I can appreciate good strength in her lower extremity myotomes, but no doubt, this disk her niation I am sure is symptomatic for the patient. She evidently has a history of L5-S1 surgery in e past. IMPRESSION AND PLAN: Under normal circumstances, I think that procession to the operating room, give n the size of the disk and the way the patient appears as far as her pain, would certainly be reasona ble. Unfortunately, she has positive cocaine in her urine indicating recent use and she has told me that she has not had cocaine in 6 months. This is obviously disturbing given that I am not being sari d the truth in this regard. Further, the patient has had blood sugars over 400, which puts her at si gnificant postoperative risk for infection and even metabolic complications related to diabetes. She is also on full strength aspirin which would make the field potentially quite hemorrhagic and finall y she has just recently completed her antibiotic regimen for osteomyelitis. Dr. Russell feels that the risk of infection would not be greater due to the patient's recent osteomyelitis I still remain conc erned given all of the above. As such, I would recommend aggressive medical management and I will ar range follow up in my clinic in the next 2-4 weeks. I have discussed this as well with Dr. Russell and Dr. Lee of the medical team. I will sign off at this point. DIAGNOSES: 1. Low back and left leg pain with left L4-L5 disk extrusion. 2. Recent cocaine use. 3. Significant hyperglycemia, diabetes mellitus. 4. Full dose aspirin therapy for history of myocardial infarct x2. 5. Osteomyelitis with recent intravenous antibiotics.
[2017-09-06] MEDS: Gabapentin 300 MG CAP PO SCH (21:57)
[2017-09-06] MEDS: Atorvastatin Calcium 40 MG TAB PO SCH (21:57)
[2017-09-06] MEDS: Temazepam 15 MG CAP PO PRN (22:03)
[2017-09-06] MEDS: HumaLOG 300 UNITS/3 ML VIAL SC PRN (22:09)
[2017-09-07] MEDS: Morphine 5 MG/ML SYRINGE SLOW IVP PRN ×5 (03:39→21:11)
[2017-09-07] MEDS: Acetaminophen/Codeine 30-300mg Tablet PO PRN ×2 (06:35→22:49)
[2017-09-07] MEDS ORDERED: cefTRIAXone\\ROCEPHIN 1 GM, Syringe 0.4 ML in Sterile Water 9.6 ML SLOW IVP SCH (09:00)
[2017-09-07] MEDS ORDERED: INSULIN DETEMIR SC SCH ×2 (09:00→21:00)
[2017-09-07] MEDS ORDERED: PRE FILLED SC SCH ×2 (09:00→21:00)
[2017-09-07] MEDS ORDERED: cefTRIAXone\\ROCEPHIN 1 GM in Sodium Chloride 0.9% 100 ML IVPB SCH (09:00)
[2017-09-07] MEDS ORDERED: Fluconazole In NaCl,Iso-Osm 200 MG in Premix Bag 1 BAG IVPB SCH (09:00)
[2017-09-07] MEDS: Famotidine 20 MG TAB PO SCH ×2 (09:11→20:32)
[2017-09-07] MEDS: Ondansetron HCl/PF 4 MG/2 ML Vial IVP PRN ×3 (09:12→22:43)
[2017-09-07] MEDS: Aspirin 325 MG TAB PO SCH (09:12)
[2017-09-07] MEDS: Gabapentin 300 MG CAP PO SCH ×3 (09:12→20:32)
[2017-09-07] MEDS: HYDROcodone/Acetaminophen 5/325 mg Tablet PO PRN ×3 (09:14→20:33)
[2017-09-07] MEDS: metFORMIN 500 MG TAB PO SCH ×2 (09:14→16:14)
[2017-09-07] MEDS: Hydrochlorothiazide 25 MG TAB PO SCH (09:14)
[2017-09-07] MEDS: Saccharomyces boulardii 250 MG CAP PO SCH (09:14)
[2017-09-07] MEDS: Losartan 25 MG TAB PO SCH (09:16)
[2017-09-07] MEDS: Amlodipine 10 MG TAB PO SCH (09:17)
[2017-09-07] MEDS: Carvedilol 25 MG TAB PO SCH ×2 (09:17→16:14)
[2017-09-07] MEDS: hydrALAZINE 25 MG TAB PO SCH ×3 (09:19→20:32)
[2017-09-07] MEDS: HumaLOG 300 UNITS/3 ML VIAL SC SCH ×3 (09:25→16:15)
--- NOTE | 2017-09-07 10:51 | PDOC.PN ---
- Subjective Encounter Start Date: 09/07/17 Encounter Start Time: 09:40 still has back pain, has UTI symptoms, no fever - Objective MAR Reviewed: Yes Vital Signs & Weight: Vital Signs (12 hours) Temp Pulse Resp BP BP Pulse Ox 09/07/17 09:17 72 135/83 09/07/17 07:43 98.1 F 72 18 135/83 100 Weight Admit Weight 219 lb 12.814 oz Weight 219 lb 12.814 oz Result Diagrams: 09/06/17 03:46 09/06/17 03:46 Additional Labs: Accuchecks 09/07/17 09/06/17 09/06/17 04:54 20:25 18:37 POC Glucose 252 H 232 H 239 H 09/06/17 09/06/17 14:49 10:41 POC Glucose 232 H 217 H Phys Exam - Physical Examination Constitutional: NAD HEENT: PERRLA, moist MMs, sclera anicteric Neck: no JVD, supple Respiratory: no wheezing, no rales, no rhonchi Cardiovascular: RRR, no significant murmur, no rub Gastrointestinal: soft, non-tender, no distention, positive bowel sounds Musculoskeletal: no edema, pulses present Neurological: moves all 4 limbs Lymphatic: no nodes Psychiatric: normal affect, A&O x 3 Skin: no rash, normal turgor Dx/Plan (1) Lumbar disc disease with radiculopathy Code(s): M51.16 - INTERVERTEBRAL DISC DISORDERS W RADICULOPATHY, LUMBAR REGION Status: Chronic (2) Cocaine abuse Code(s): F14.10 - COCAINE ABUSE, UNCOMPLICATED Status: Acute Comment: (3) Anxiety and depression Code(s): F41.9 - ANXIETY DISORDER, UNSPECIFIED; F32.9 - MAJOR DEPRESSIVE DISORDER, SINGLE EPISODE, UNSPECIFIED Status: Chronic (4) CAD (coronary artery disease) Code(s): I25.10 - ATHSCL HEART DISEASE OF [place] CORONARY ARTERY W/O ANG PCTRS Status: Chronic Qualifiers: Coronary Disease-Associated Artery/Lesion type: [place] artery [place] vs. transplanted heart: [place] heart Associated angina: without angina Qualified Code(s): I25.10 - Atherosclerotic heart disease of [place] coronary artery without angina pectoris (5) CKD (chronic kidney disease) stage 3, GFR 30-59 ml/min Status: Chronic (6) DM type 2 (diabetes mellitus, type 2) Status: Chronic Qualifiers: Diabetes mellitus complication status: with hyperglycemia Diabetes mellitus intermediate manager insulin use: with intermediate manager use Qualified Code(s): E11.65 - Type 2 diabetes mellitus with hyperglycemia; Z79.4 - correction (current) use of insulin Comment: (7) HTN (hypertension) Code(s): I10 - ESSENTIAL (PRIMARY) HYPERTENSION Status: Chronic Qualifiers: Hypertension type: essential hypertension Qualified Code(s): I10 - Essential (primary) hypertension Comment: (8) Obesity Code(s): E66.9 - OBESITY, UNSPECIFIED Status: Chronic Qualifiers: Obesity type: unspecified obesity type (9) Toe osteomyelitis, right Code(s): M86.9 - OSTEOMYELITIS, UNSPECIFIED Status: Resolved Comment: (10) UTI (urinary tract infection) Status: Acute - Plan cont current plan of care, continue antibiotics * diflucan 200 mg IV one time * add rocephin * follow culture * medication reviewed as below * symptomatic treatment. * rehab evaluation * pain control * increase levemir insulin Review of Systems - Review of Systems Eyes: negative: Pain, Vision Change, Conjunctivae Inflammation, Eyelid Inflammation, Redness, Other ENT: negative: Ear Pain, Ear Discharge, Nose Pain, Nose Discharge, Nose Congestion, Mouth Pain, Mouth Swelling, Throat Pain, Throat Swelling, Other Respiratory: negative: Cough, Dry, Shortness of Breath, Hemoptysis, SOB with Excertion, Pleuritic Pain, Sputum, Wheezing Cardiovascular: negative: chest pain, palpitations, orthopnea, paroxysmal nocturnal dyspnea, edema, light headedness, other Gastrointestinal: negative: Nausea, Vomiting, Abdominal Pain, Diarrhea, Constipation, Melena, Hematochezia, Other Genitourinary: Dysuria, Frequency. negative: Incontinence, Hematuria, Retention , Other Musculoskeletal: Back Pain. negative: Neck Pain, Shoulder Pain, Arm Pain, Hand Pain, Leg Pain, Foot Pain, Other Skin: negative: Rash, Lesions, Raul, Bruising, Other - Medications/Allergies Allergies/Adverse Reactions: Allergies Allergy/AdvReac Type Severity Reaction Status Date / Time lisinopril Allergy Anaphylaxis Verified 09/04/17 22:10 Medications: Current Medications Acetaminophen (Tylenol) 650 mg PO Q4H PRN PRN Reason: Headache/Fever or Mild Pain Last Admin: 09/07/17 06:36 Dose: 650 mg Acetaminophen/Codeine Phosphate (Tylenol #3) 1 tab PO Q4H PRN PRN Reason: Moderate Pain (4-6) Last Admin: 09/07/17 06:35 Dose: 1 tab Hydrocodone Bitart/Acetaminophen ([place] 5/325) 1 tab PO Q4H PRN PRN Reason: Pain 7-10 Last Admin: 09/07/17 09:14 Dose: 1 tab Al Hydroxide/Mg Hydroxide (Maalox) 15 ml PO Q4H PRN PRN Reason: Heartburn or Indigestion Amlodipine Besylate (Norvasc) 10 mg PO DAILY [facility] Last Admin: 09/07/17 09:17 Dose: 10 mg Artificial Tears (Tears Naturale) 0 drop EA EYE PRN PRN PRN Reason: Dry Eyes Aspirin (Aspirin) 325 mg PO DAILY [facility] Last Admin: 09/07/17 09:12 Dose: 325 mg Atorvastatin Calcium (Lipitor) 40 mg PO [facility] Last Admin: 09/06/17 21:57 Dose: 40 mg Carvedilol (Coreg) 25 mg PO BID-[facility] Last Admin: 09/07/17 09:17 Dose: 25 mg Cyclobenzaprine HCl (Flexeril) 10 mg PO TIDPRN PRN PRN Reason: Muscle Spasm Dextrose/Water (Dextrose 50%) 25 gm SLOW IVP PRN PRN PRN Reason: Hypoglycemia Famotidine (Pepcid) 20 mg PO BID [facility] Last Admin: 09/07/17 09:11 Dose: 20 mg Gabapentin (Neurontin) 300 mg PO TID [facility] Last Admin: 09/07/17 09:12 Dose: 300 mg Glucagon (Glucagon) 1 mg IM PRN PRN PRN Reason: Hypoglycemia Guaifenesin (Robitussin Sf) 200 mg PO Q4H PRN PRN Reason: Cough Hydralazine HCl (Apresoline) 100 mg PO TID [facility] Last Admin: 09/07/17 09:19 Dose: Not Given Hydralazine HCl (Apresoline) 10 mg SLOW IVP Q4H PRN PRN Reason: Systolic BP > 180 Hydrochlorothiazide (Hydrochlorothiazide) 25 mg PO DAILY [facility] Last Admin: 09/07/17 09:14 Dose: 25 mg Dextrose/Water (D5w) 1,000 mls @ 0 mls/hr IV .Q0M PRN; As Directed PRN Reason: Hypoglycemia Insulin Detemir 85 units/ (Miscellaneous Medication) 0.85 mls @ 0 mls/hr SC HS [facility] Insulin Detemir 95 units/ (Miscellaneous Medication) 0.95 mls @ 0 mls/hr SC QAM [facility] Last Admin: 09/07/17 09:42 Dose: 0.95 mls Fluconazole/Sodium Chloride (200 mg/ Device) 100 mls @ 100 mls/hr IVPB 0900 [facility] Stop: 09/07/17 11:00 Last Admin: 09/07/17 09:23 Dose: 100 mls Insulin Human Lispro (Humalog) 0 units SC .MODERATE SLIDING SC PRN PRN Reason: Moderate Correctional Scale Insulin Human Lispro (Humalog) 0 units SC .BEDTIME SLIDING SC PRN PRN Reason: Bedtime Correctional Scale Last Admin: 09/06/17 22:09 Dose: 2 unit Insulin Human Lispro (Humalog) 15 units SC TID-[facility] Last Admin: 09/07/17 09:25 Dose: 15 unit Loperamide HCl (Imodium) 2 mg PO PRN PRN PRN Reason: Diarrhea/Loose Stools Loratadine (Claritin) 10 mg PO DAILYPRN PRN PRN Reason: Sinus Symptoms Losartan Potassium (Cozaar) 50 mg PO DAILY [facility] Last Admin: 09/07/17 09:16 Dose: 50 mg Magnesium Hydroxide (Milk Of Magnesium) 30 ml PO DAILYPRN PRN PRN Reason: Constipation Metformin HCl (Glucophage) 1,000 mg PO BID-[facility] Last Admin: 09/07/17 09:14 Dose: 1,000 mg Mineral Oil/White Petrolatum (Eucerin Cream) 0 gm TOP BIDPRN PRN PRN Reason: Dry Skin Morphine Sulfate (Morphine) 4 mg SLOW IVP Q3H PRN PRN Reason: Pain Last Admin: 09/07/17 09:19 Dose: 4 mg Ondansetron HCl (Zofran Odt) 4 mg PO Q6H PRN PRN Reason: Nausea/Vomiting Last Admin: 09/07/17 03:44 Dose: 4 mg Ondansetron HCl (Zofran) 4 mg IVP Q6H PRN PRN Reason: Nausea/Vomiting Last Admin: 09/07/17 09:12 Dose: 4 mg Phenol (Chloraseptic [place] 180 Ml Bot) 0 ml PO PRN PRN PRN Reason: Sore Throat Saccharomyces Boulardii (Florastor) 250 mg PO DAILY [facility] Last Admin: 09/07/17 09:14 Dose: 250 mg Senna (Senokot) 2 tab PO HSPRN PRN PRN Reason: Constipation Sodium Chloride ([place] Nasal [place] 0.65%) 0 ml EA NARE QIDPRN PRN PRN Reason: Nasal Congestion Temazepam (Restoril) 15 mg PO HSPRN PRN PRN Reason: Insomnia Last Admin: 09/06/17 22:03 Dose: 15 mg
[2017-09-07] MEDS: Atorvastatin Calcium 40 MG TAB PO SCH (20:32)
[2017-09-07] MEDS: HumaLOG 300 UNITS/3 ML VIAL SC PRN (21:11)
[2017-09-07] MEDS: Temazepam 15 MG CAP PO PRN (22:43)
[2017-09-07] MEDS: Cyclobenzaprine 10 MG TAB PO PRN (22:56)
[2017-09-08] MEDS: HYDROcodone/Acetaminophen 5/325 mg Tablet PO PRN ×4 (00:27→17:32)
[2017-09-08] MEDS: Morphine 5 MG/ML SYRINGE SLOW IVP PRN ×5 (01:12→21:15)
[2017-09-08] MEDS: HumaLOG 300 UNITS/3 ML VIAL SC PRN ×2 (05:41→21:07)
[2017-09-08] MEDS: Gabapentin 300 MG CAP PO SCH ×3 (08:44→19:39)
[2017-09-08] MEDS: Losartan 25 MG TAB PO SCH (08:44)
[2017-09-08] MEDS: Hydrochlorothiazide 25 MG TAB PO SCH (08:44)
[2017-09-08] MEDS: Aspirin 325 MG TAB PO SCH (08:45)
[2017-09-08] MEDS: Carvedilol 25 MG TAB PO SCH ×2 (08:45→17:32)
[2017-09-08] MEDS: metFORMIN 500 MG TAB PO SCH ×2 (08:46→17:36)
[2017-09-08] MEDS: Saccharomyces boulardii 250 MG CAP PO SCH (08:46)
[2017-09-08] MEDS: Famotidine 20 MG TAB PO SCH ×2 (08:46→19:41)
[2017-09-08] MEDS: Amlodipine 10 MG TAB PO SCH (08:47)
[2017-09-08] MEDS: HumaLOG 300 UNITS/3 ML VIAL SC SCH ×3 (08:48→17:34)
[2017-09-08] MEDS: hydrALAZINE 25 MG TAB PO SCH ×4 (08:48→21:16)
[2017-09-08] MEDS: Insulin Detemir 100 UNITS/ML 100 UNITS in Pre-Filled Syringe 1 EACH SC SCH (08:49)
[2017-09-08] MEDS: Cyclobenzaprine 10 MG TAB PO PRN ×3 (08:57→19:40)
--- NOTE | 2017-09-08 09:35 | PDOC.PN ---
- Subjective Encounter Start Date: 09/08/17 Encounter Start Time: 08:30 pt still have back pain, no fever, Patient seen and examined. No overnight events pt decided to go for rehab if accepted - Objective Resuscitation Status: Resuscitation Status FULL:Full Resuscitation MAR Reviewed: Yes Vital Signs & Weight: Vital Signs (12 hours) Temp Pulse Resp BP BP Pulse Ox 09/08/17 08:48 76 09/08/17 08:47 76 131/78 09/08/17 08:09 98.5 F 76 18 131/78 98 09/08/17 04:19 98.1 F 81 17 135/84 99 09/08/17 00:00 79 18 137/92 H 98 Weight Admit Weight 219 lb 12.814 oz Weight 219 lb 12.814 oz I&O: 09/07/17 09/08/17 09/09/17 06:59 06:59 07:59 Intake Total 1250 Balance 1250 Result Diagrams: 09/06/17 03:46 09/06/17 03:46 Additional Labs: Accuchecks 09/08/17 09/07/17 09/07/17 05:47 20:05 16:13 POC Glucose 412 H 314 H 255 H 09/07/17 10:53 POC Glucose 369 H Phys Exam - Physical Examination Constitutional: NAD HEENT: PERRLA, moist MMs, sclera anicteric Neck: no JVD, supple Respiratory: no wheezing, no rales, no rhonchi Cardiovascular: RRR, no significant murmur, no rub Gastrointestinal: soft, non-tender, no distention, positive bowel sounds Musculoskeletal: no edema, pulses present Neurological: non-focal, normal sensation, moves all 4 limbs Psychiatric: normal affect, A&O x 3 Skin: no rash, normal turgor Dx/Plan (1) Lumbar disc disease with radiculopathy Code(s): M51.16 - INTERVERTEBRAL DISC DISORDERS W RADICULOPATHY, LUMBAR REGION Status: Chronic (2) Cocaine abuse Code(s): F14.10 - COCAINE ABUSE, UNCOMPLICATED Status: Acute Comment: (3) Anxiety and depression Code(s): F41.9 - ANXIETY DISORDER, UNSPECIFIED; F32.9 - MAJOR DEPRESSIVE DISORDER, SINGLE EPISODE, UNSPECIFIED Status: Chronic (4) CAD (coronary artery disease) Code(s): I25.10 - ATHSCL HEART DISEASE OF [place] CORONARY ARTERY W/O ANG PCTRS Status: Chronic Qualifiers: Coronary Disease-Associated Artery/Lesion type: [place] artery [place] vs. 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 Comment: (7) HTN (hypertension) Code(s): I10 - ESSENTIAL (PRIMARY) HYPERTENSION Status: Chronic Qualifiers: Hypertension type: essential hypertension Qualified Code(s): I10 - Essential (primary) hypertension Comment: (8) Obesity Code(s): E66.9 - OBESITY, UNSPECIFIED Status: Chronic Qualifiers: Obesity type: unspecified obesity type (9) Toe osteomyelitis, right Code(s): M86.9 - OSTEOMYELITIS, UNSPECIFIED Status: Resolved Comment: (10) UTI (urinary tract infection) Status: Acute - Plan cont current plan of care, PT/OT * continue levaquin * follow culture * pain control * await rehab placement * medication reviewed as below * symptomatic treatment. * increase levemir * counselled to avoid cocaine Review of Systems - Review of Systems Constitutional: negative: fever, chills, sweats, weakness, malaise, other ENT: negative: Ear Pain, Ear Discharge, Nose Pain, Nose Discharge, Nose Congestion, Mouth Pain, Mouth Swelling, Throat Pain, Throat Swelling, Other Respiratory: negative: Cough, Dry, Shortness of Breath, Hemoptysis, SOB with Excertion, Pleuritic Pain, Sputum, Wheezing Cardiovascular: negative: chest pain, palpitations, orthopnea, paroxysmal nocturnal dyspnea, edema, light headedness, other Gastrointestinal: negative: Nausea, Vomiting, Abdominal Pain, Diarrhea, Constipation, Melena, Hematochezia, Other Genitourinary: negative: Dysuria, Frequency, Incontinence, Hematuria, Retention , Other Musculoskeletal: Back Pain. negative: Neck Pain, Shoulder Pain, Arm Pain, Hand Pain, Leg Pain, Foot Pain, Other Skin: negative: Rash, Lesions, Raul, Bruising, Other - Medications/Allergies Allergies/Adverse Reactions: Allergies Allergy/AdvReac Type Severity Reaction Status Date / Time lisinopril Allergy Anaphylaxis Verified 09/04/17 22:10 Medications: Current Medications Acetaminophen (Tylenol) 650 mg PO Q4H PRN PRN Reason: Headache/Fever or Mild Pain Last Admin: 09/07/17 06:36 Dose: 650 mg Acetaminophen/Codeine Phosphate (Tylenol #3) 1 tab PO Q4H PRN PRN Reason: Moderate Pain (4-6) Last Admin: 09/07/17 22:49 Dose: 1 tab Hydrocodone Bitart/Acetaminophen ([place] 5/325) 1 tab PO Q4H PRN PRN Reason: Pain 7-10 Last Admin: 09/08/17 08:56 Dose: 1 tab Al Hydroxide/Mg Hydroxide (Maalox) 15 ml PO Q4H PRN PRN Reason: Heartburn or Indigestion Amlodipine Besylate (Norvasc) 10 mg PO DAILY [facility] Last Admin: 09/08/17 08:47 Dose: 10 mg Artificial Tears (Tears Naturale) 0 drop EA EYE PRN PRN PRN Reason: Dry Eyes Aspirin (Aspirin) 325 mg PO DAILY [facility] Last Admin: 09/08/17 08:45 Dose: 325 mg Atorvastatin Calcium (Lipitor) 40 mg PO HS [facility] Last Admin: 09/07/17 20:32 Dose: 40 mg Carvedilol (Coreg) 25 mg PO BID[facility] Last Admin: 09/08/17 08:45 Dose: 25 mg Cyclobenzaprine HCl (Flexeril) 10 mg PO TIDPRN PRN PRN Reason: Muscle Spasm Last Admin: 09/08/17 08:57 Dose: 10 mg Dextrose/Water (Dextrose 50%) 25 gm SLOW IVP PRN PRN PRN Reason: Hypoglycemia Famotidine (Pepcid) 20 mg PO BID [facility] Last Admin: 09/08/17 08:46 Dose: 20 mg Gabapentin (Neurontin) 300 mg PO TID [facility] Last Admin: 09/08/17 08:44 Dose: 300 mg Glucagon (Glucagon) 1 mg IM PRN PRN PRN Reason: Hypoglycemia Guaifenesin (Robitussin Sf) 200 mg PO Q4H PRN PRN Reason: Cough Hydralazine HCl (Apresoline) 100 mg PO TID [facility] Last Admin: 09/08/17 08:48 Dose: Not Given Hydralazine HCl (Apresoline) 10 mg SLOW IVP Q4H PRN PRN Reason: Systolic BP > 180 Hydrochlorothiazide (Hydrochlorothiazide) 25 mg PO DAILY [facility] Last Admin: 09/08/17 08:44 Dose: 25 mg Dextrose/Water (D5w) 1,000 mls @ 0 mls/hr IV .Q0M PRN; As Directed PRN Reason: Hypoglycemia Insulin Detemir 95 units/ (Miscellaneous Medication) 0.95 mls @ 0 mls/hr SC [facility] Insulin Detemir 100 units/ (Miscellaneous Medication) 1 mls @ 0 mls/hr SC QAM [facility] Last Admin: 09/08/17 08:49 Dose: 1 mls Insulin Human Lispro (Humalog) 0 units SC .MODERATE SLIDING SC PRN PRN Reason: Moderate Correctional Scale Last Admin: 09/08/17 05:41 Dose: 10 unit Insulin Human Lispro (Humalog) 0 units SC .BEDTIME SLIDING SC PRN PRN Reason: Bedtime Correctional Scale Last Admin: 09/07/17 21:11 Dose: 4 unit Insulin Human Lispro (Humalog) 15 units SC TID-[facility] Last Admin: 09/08/17 08:48 Dose: 15 unit Loperamide HCl (Imodium) 2 mg PO PRN PRN PRN Reason: Diarrhea/Loose Stools Loratadine (Claritin) 10 mg PO DAILYPRN PRN PRN Reason: Sinus Symptoms Losartan Potassium (Cozaar) 50 mg PO DAILY [facility] Last Admin: 09/08/17 08:44 Dose: 50 mg Magnesium Hydroxide (Milk Of Magnesium) 30 ml PO DAILYPRN PRN PRN Reason: Constipation Metformin HCl (Glucophage) 1,000 mg PO BID-[facility] Last Admin: 09/08/17 08:46 Dose: 1,000 mg Mineral Oil/White Petrolatum (Eucerin Cream) 0 gm TOP BIDPRN PRN PRN Reason: Dry Skin Morphine Sulfate (Morphine) 4 mg SLOW IVP Q3H PRN PRN Reason: Pain Last Admin: 09/08/17 08:50 Dose: 4 mg Ondansetron HCl (Zofran Odt) 4 mg PO Q6H PRN PRN Reason: Nausea/Vomiting Last Admin: 09/07/17 03:44 Dose: 4 mg Ondansetron HCl (Zofran) 4 mg IVP Q6H PRN PRN Reason: Nausea/Vomiting Last Admin: 09/07/17 22:43 Dose: 4 mg Phenol (Chloraseptic [place] 180 Ml Bot) 0 ml PO PRN PRN PRN Reason: Sore Throat Saccharomyces Boulardii (Florastor) 250 mg PO DAILY [facility] Last Admin: 09/08/17 08:46 Dose: 250 mg Senna (Senokot) 2 tab PO HSPRN PRN PRN Reason: Constipation Sodium Chloride ([place] Nasal [place] 0.65%) 0 ml EA NARE QIDPRN PRN PRN Reason: Nasal Congestion Temazepam (Restoril) 15 mg PO HSPRN PRN PRN Reason: Insomnia Last Admin: 09/07/17 22:43 Dose: 15 mg
[2017-09-08] MEDS: Acetaminophen/Codeine 30-300mg Tablet PO PRN (19:31)
[2017-09-08] MEDS: Atorvastatin Calcium 40 MG TAB PO SCH (19:41)
[2017-09-08] MEDS: Ondansetron HCl/PF 4 MG/2 ML Vial IVP PRN (21:02)
[2017-09-08] MEDS: INSULIN DETEMIR SC SCH (21:06)
[2017-09-08] MEDS: PRE FILLED SC SCH (21:06)
[2017-09-09] MEDS: Temazepam 15 MG CAP PO PRN ×2 (01:45→22:47)
[2017-09-09] MEDS: HYDROcodone/Acetaminophen 5/325 mg Tablet PO PRN (01:45)
[2017-09-09] MEDS: Morphine 5 MG/ML SYRINGE SLOW IVP PRN ×5 (01:50→21:07)
[2017-09-09] MEDS: HumaLOG 300 UNITS/3 ML VIAL SC PRN ×2 (06:45→21:09)
[2017-09-09 07:24] LABS: #Eosinphils 0.2 thou/uL (0.0-0.7); #Lymphocytes 2.8 thou/uL (1.20-3.40); #Monocytes 0.4 thou/uL (0.11-0.59); #Neutrophils 4.7 thou/uL (1.40-6.50); %Basophils 0.4 % (0.0-1.0); %Eosinophils 1.9 % (0.0-10.0); %Lymphocytes 34.3 % (21.0-51.0); %Monocytes 5.4 % (0.0-10.0); %Neutrophils 58.1 % (42.0-75.0); Hemoglobin 11.6 g/dL (12.0-16.0); Mean Corpuscular HGB CONC 34.7 g/dL (32.0-36.0); Mean Corpuscular Hemoglobin 31.5 pg (27.0-31.0); Mean Corpuscular Volume 90.6 fl (81.0-99.0); Mean Platelet Volume 8.6 fL (7.4-10.4); Platelet Count 192 thou/uL (130-400); RBC Distribution Width 11.3 % (11.5-14.5); Red Blood Cell (RBC) Count 3.68 mill/uL (4.20-5.40); White Blood Cell (WBC) Count 8.1 thou/uL (4.8-10.8)
[2017-09-09 07:49] LABS: ALT (SGPT) 51 U/L (8-55); AST (SGOT) 48 U/L (5-34); Albumin 3.6 g/dL (3.5-5.0); Alkaline Phosphatase 178 U/L (40-150); Anion Gap 14 mmol/L (10-20); BUN (Urea Nitrogen) 34 mg/dL (7.0-18.7); Bilirubin, Total 0.2 mg/dL (0.2-1.2); Calc. Creatinine Clearance 52 mL/min (70-130); Calcium 8.4 mg/dL (7.8-10.44); Carbon Dioxide 23 mmol/L (22-29); Chloride 98 mmol/L (98-107); Estimated GFR-MDRD 24; Globulin 2.7 g/dL (2.4-3.5); Glucose 433 mg/dL (70-105); Potassium 4.7 mmol/L (3.5-5.1); Protein, Total 6.3 g/dL (6.0-8.3); Sodium 130 mmol/L (136-145)
[2017-09-09] MEDS: Insulin Detemir 100 UNITS/ML 100 UNITS in Pre-Filled Syringe 1 EACH SC SCH (07:59)
[2017-09-09] MEDS: Aspirin 325 MG TAB PO SCH (08:02)
[2017-09-09] MEDS: hydrALAZINE 25 MG TAB PO SCH ×3 (08:02→21:06)
[2017-09-09] MEDS: Hydrochlorothiazide 25 MG TAB PO SCH (08:02)
[2017-09-09] MEDS: Carvedilol 25 MG TAB PO SCH ×2 (08:03→16:50)
[2017-09-09] MEDS: metFORMIN 500 MG TAB PO SCH ×2 (08:03→16:51)
[2017-09-09] MEDS: Famotidine 20 MG TAB PO SCH ×2 (08:03→21:05)
[2017-09-09] MEDS: Amlodipine 10 MG TAB PO SCH (08:03)
[2017-09-09] MEDS: HumaLOG 300 UNITS/3 ML VIAL SC SCH ×3 (08:04→16:50)
[2017-09-09] MEDS: Gabapentin 300 MG CAP PO SCH ×3 (08:04→21:05)
[2017-09-09] MEDS: Saccharomyces boulardii 250 MG CAP PO SCH (08:04)
[2017-09-09] MEDS: Losartan 25 MG TAB PO SCH (08:04)
--- NOTE | 2017-09-09 09:27 | PDOC.PN ---
- Subjective Encounter Start Date: 09/09/17 Encounter Start Time: 08:30 Patient seen and examined. No new complaints. No overnight events still has back pain, today creatinine is high - Objective Resuscitation Status: Resuscitation Status FULL:Full Resuscitation MAR Reviewed: Yes Vital Signs & Weight: Vital Signs (12 hours) Temp Pulse Resp BP BP Pulse Ox 09/09/17 08:03 79 138/77 09/09/17 08:02 79 138/77 09/09/17 08:00 98.5 F 79 18 95 09/09/17 07:43 98.5 F 79 18 138/77 95 09/08/17 21:16 81 151/86 H Weight Admit Weight 219 lb 12.814 oz Weight 219 lb 12.814 oz I&O: 09/08/17 09/09/17 09/10/17 05:59 06:59 06:59 Intake Total Balance Result Diagrams: 09/09/17 07:14 09/09/17 07:14 Additional Labs: Accuchecks 09/09/17 09/08/17 09/08/17 05:11 20:31 16:23 POC Glucose 431 H 299 H 403 H 09/08/17 11:30 POC Glucose 266 H Phys Exam - Physical Examination Constitutional: NAD HEENT: PERRLA, moist MMs, sclera anicteric Neck: no JVD, supple Respiratory: no wheezing, no rales, no rhonchi Cardiovascular: RRR, no significant murmur, no rub Gastrointestinal: soft, non-tender, no distention, positive bowel sounds Musculoskeletal: no edema, pulses present Neurological: non-focal, normal sensation, moves all 4 limbs Psychiatric: normal affect, A&O x 3 Skin: no rash, normal turgor Dx/Plan (1) Lumbar disc disease with radiculopathy Code(s): M51.16 - INTERVERTEBRAL DISC DISORDERS W RADICULOPATHY, LUMBAR REGION Status: Chronic (2) Cocaine abuse Code(s): F14.10 - COCAINE ABUSE, UNCOMPLICATED Status: Acute Comment: (3) Anxiety and depression Code(s): F41.9 - ANXIETY DISORDER, UNSPECIFIED; F32.9 - MAJOR DEPRESSIVE DISORDER, SINGLE EPISODE, UNSPECIFIED Status: Chronic (4) CAD (coronary artery disease) Code(s): I25.10 - ATHSCL HEART DISEASE OF [place] CORONARY ARTERY W/O ANG PCTRS Status: Chronic Qualifiers: Coronary Disease-Associated Artery/Lesion type: [place] artery [place] vs. 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 Comment: (7) HTN (hypertension) Code(s): I10 - ESSENTIAL (PRIMARY) HYPERTENSION Status: Chronic Qualifiers: Hypertension type: essential hypertension Qualified Code(s): I10 - Essential (primary) hypertension Comment: (8) Obesity Code(s): E66.9 - OBESITY, UNSPECIFIED Status: Chronic Qualifiers: Obesity type: unspecified obesity type (9) Toe osteomyelitis, right Code(s): M86.9 - OSTEOMYELITIS, UNSPECIFIED Status: Resolved Comment: (10) UTI (urinary tract infection) Status: Acute (11) Acute worsening of stage 3 chronic kidney disease Code(s): N18.3 - CHRONIC KIDNEY DISEASE, STAGE 3 (MODERATE) Status: Acute - Plan cont current plan of care, continue antibiotics, 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 Review of Systems - Review of Systems Constitutional: negative: fever, chills, sweats, weakness, malaise, other Eyes: negative: Pain, Vision Change, Conjunctivae Inflammation, Eyelid Inflammation, Redness, Other ENT: negative: Ear Pain, Ear Discharge, Nose Pain, Nose Discharge, Nose Congestion, Mouth Pain, Mouth Swelling, Throat Pain, Throat Swelling, Other Respiratory: negative: Cough, Dry, Shortness of Breath, Hemoptysis, SOB with Excertion, Pleuritic Pain, Sputum, Wheezing Cardiovascular: negative: chest pain, palpitations, orthopnea, paroxysmal nocturnal dyspnea, edema, light headedness, other Gastrointestinal: negative: Nausea, Vomiting, Abdominal Pain, Diarrhea, Constipation, Melena, Hematochezia, Other Genitourinary: negative: Dysuria, Frequency, Incontinence, Hematuria, Retention , Other Musculoskeletal: Back Pain. negative: Neck Pain, Shoulder Pain, Arm Pain, Hand Pain, Leg Pain, Foot Pain, Other - Medications/Allergies Allergies/Adverse Reactions: Allergies Allergy/AdvReac Type Severity Reaction Status Date / Time lisinopril Allergy Anaphylaxis Verified 09/04/17 22:10 Medications: Current Medications Acetaminophen (Tylenol) 650 mg PO Q4H PRN PRN Reason: Headache/Fever or Mild Pain Last Admin: 09/07/17 06:36 Dose: 650 mg Acetaminophen/Codeine Phosphate (Tylenol #3) 1 tab PO Q4H PRN PRN Reason: Moderate Pain (4-6) Last Admin: 09/08/17 19:31 Dose: 1 tab Hydrocodone Bitart/Acetaminophen ([place] 5/325) 1 tab PO Q4H PRN PRN Reason: Pain 7-10 Last Admin: 09/09/17 01:45 Dose: 1 tab Al Hydroxide/Mg Hydroxide (Maalox) 15 ml PO Q4H PRN PRN Reason: Heartburn or Indigestion Amlodipine Besylate (Norvasc) 10 mg PO DAILY [facility] Last Admin: 09/09/17 08:03 Dose: 10 mg Artificial Tears (Tears Naturale) 0 drop EA EYE PRN PRN PRN Reason: Dry Eyes Aspirin (Aspirin) 325 mg PO DAILY [facility] Last Admin: 09/09/17 08:02 Dose: 325 mg Atorvastatin Calcium (Lipitor) 40 mg PO HS [facility] Last Admin: 09/08/17 19:41 Dose: 40 mg Carvedilol (Coreg) 25 mg PO BID-[facility] Last Admin: 09/09/17 08:03 Dose: 25 mg Cyclobenzaprine HCl (Flexeril) 10 mg PO TIDPRN PRN PRN Reason: Muscle Spasm Last Admin: 09/08/17 19:40 Dose: 10 mg Dextrose/Water (Dextrose 50%) 25 gm SLOW IVP PRN PRN PRN Reason: Hypoglycemia Famotidine (Pepcid) 20 mg PO BID [facility] Last Admin: 09/09/17 08:03 Dose: 20 mg Gabapentin (Neurontin) 300 mg PO TID [facility] Last Admin: 09/09/17 08:04 Dose: 300 mg Glucagon (Glucagon) 1 mg IM PRN PRN PRN Reason: Hypoglycemia Guaifenesin (Robitussin Sf) 200 mg PO Q4H PRN PRN Reason: Cough Hydralazine HCl (Apresoline) 100 mg PO TID [facility] Last Admin: 09/09/17 08:02 Dose: Not Given Hydralazine HCl (Apresoline) 10 mg SLOW IVP Q4H PRN PRN Reason: Systolic BP > 180 Dextrose/Water (D5w) 1,000 mls @ 0 mls/hr IV .Q0M PRN; As Directed PRN Reason: Hypoglycemia Insulin Detemir 95 units/ (Miscellaneous Medication) 0.95 mls @ 0 mls/hr SC [facility] Last Admin: 09/08/17 21:06 Dose: 0.95 mls Insulin Detemir 100 units/ (Miscellaneous Medication) 1 mls @ 0 mls/hr SC QAM [facility] Last Admin: 09/09/17 07:59 Dose: 1 mls Sodium Chloride (Normal [place] 0.9%) 1,000 mls @ 70 mls/hr IV .[id number] [facility] Insulin Human Lispro (Humalog) 0 units SC .MODERATE SLIDING SC PRN PRN Reason: Moderate Correctional Scale Last Admin: 09/09/17 06:45 Dose: 10 unit Insulin Human Lispro (Humalog) 0 units SC .BEDTIME SLIDING SC PRN PRN Reason: Bedtime Correctional Scale Last Admin: 09/08/17 21:07 Dose: 3 unit Insulin Human Lispro (Humalog) 15 units SC TID-[facility] Last Admin: 09/09/17 08:04 Dose: 15 unit Loperamide HCl (Imodium) 2 mg PO PRN PRN PRN Reason: Diarrhea/Loose Stools Loratadine (Claritin) 10 mg PO DAILYPRN PRN PRN Reason: Sinus Symptoms Losartan Potassium (Cozaar) 50 mg PO DAILY [facility] Last Admin: 09/09/17 08:04 Dose: 50 mg Magnesium Hydroxide (Milk Of Magnesium) 30 ml PO DAILYPRN PRN PRN Reason: Constipation Metformin HCl (Glucophage) 1,000 mg PO BID-[facility] Last Admin: 09/09/17 08:03 Dose: 1,000 mg Mineral Oil/White Petrolatum (Eucerin Cream) 0 gm TOP BIDPRN PRN PRN Reason: Dry Skin Morphine Sulfate (Morphine) 4 mg SLOW IVP Q3H PRN PRN Reason: Pain Last Admin: 09/09/17 07:56 Dose: 4 mg Ondansetron HCl (Zofran Odt) 4 mg PO Q6H PRN PRN Reason: Nausea/Vomiting Last Admin: 09/07/17 03:44 Dose: 4 mg Ondansetron HCl (Zofran) 4 mg IVP Q6H PRN PRN Reason: Nausea/Vomiting Last Admin: 09/08/17 21:02 Dose: 4 mg Phenol (Chloraseptic [place] 180 Ml Bot) 0 ml PO PRN PRN PRN Reason: Sore Throat Saccharomyces Boulardii (Florastor) 250 mg PO DAILY [facility] Last Admin: 09/09/17 08:04 Dose: 250 mg Senna (Senokot) 2 tab PO HSPRN PRN PRN Reason: Constipation Sodium Chloride ([place] Nasal [place] 0.65%) 0 ml EA NARE QIDPRN PRN PRN Reason: Nasal Congestion Temazepam (Restoril) 15 mg PO HSPRN PRN PRN Reason: Insomnia Last Admin: 09/09/17 01:45 Dose: 15 mg
[2017-09-09] MEDS: Acetaminophen/Codeine 30-300mg Tablet PO PRN ×2 (10:14→22:47)
[2017-09-09] MEDS: Cyclobenzaprine 10 MG TAB PO PRN ×2 (10:15→22:47)
[2017-09-09] MEDS: Sodium Chloride 0.9% 1,000 ML IV SCH (10:16)
[2017-09-09] MEDS: Atorvastatin Calcium 40 MG TAB PO SCH (21:05)
[2017-09-09] MEDS: PRE FILLED SC SCH (21:08)
[2017-09-09] MEDS: INSULIN DETEMIR SC SCH (21:08)
[2017-09-10] MEDS: Morphine 5 MG/ML SYRINGE SLOW IVP PRN ×3 (01:25→09:51)
[2017-09-10] MEDS: Sodium Chloride 0.9% 1,000 ML IV SCH (01:25)
[2017-09-10] MEDS: Cyclobenzaprine 10 MG TAB PO PRN (03:16)
[2017-09-10] MEDS: Acetaminophen/Codeine 30-300mg Tablet PO PRN ×2 (03:17→07:57)
[2017-09-10] MEDS: HumaLOG 300 UNITS/3 ML VIAL SC PRN (05:18)
[2017-09-10 05:43] LABS: Hemoglobin A1c 7.9 % (4.0-6.0)
[2017-09-10 06:32] LABS: ALT (SGPT) 80 U/L (8-55); AST (SGOT) 78 U/L (5-34); Albumin 3.6 g/dL (3.5-5.0); Alkaline Phosphatase 208 U/L (40-150); Anion Gap 12 mmol/L (10-20); BUN (Urea Nitrogen) 30 mg/dL (7.0-18.7); Bilirubin, Total 0.2 mg/dL (0.2-1.2); Calc. Creatinine Clearance 57 mL/min (70-130); Calcium 8.4 mg/dL (7.8-10.44); Carbon Dioxide 22 mmol/L (22-29); Chloride 101 mmol/L (98-107); Estimated GFR-MDRD 27; Globulin 2.7 g/dL (2.4-3.5); Glucose 468 mg/dL (70-105); Protein, Total 6.3 g/dL (6.0-8.3); Sodium 130 mmol/L (136-145)
[2017-09-10] MEDS: Gabapentin 300 MG CAP PO SCH (07:57)
[2017-09-10] MEDS: Carvedilol 25 MG TAB PO SCH (07:57)
[2017-09-10] MEDS: Amlodipine 10 MG TAB PO SCH (07:58)
[2017-09-10] MEDS: Aspirin 325 MG TAB PO SCH (07:58)
[2017-09-10] MEDS: metFORMIN 500 MG TAB PO SCH (07:58)
[2017-09-10] MEDS: Losartan 25 MG TAB PO SCH (07:58)
[2017-09-10] MEDS: Saccharomyces boulardii 250 MG CAP PO SCH (07:59)
[2017-09-10] MEDS: HumaLOG 300 UNITS/3 ML VIAL SC SCH ×2 (08:01→11:48)
[2017-09-10 08:03] VITALS: BP 138/94
[2017-09-10] MEDS: Famotidine 20 MG TAB PO SCH (08:04)
[2017-09-10] MEDS: hydrALAZINE 25 MG TAB PO SCH (08:04)
[2017-09-10 08:43] VITALS: TEMP 98.2
[2017-09-10] MEDS: Insulin Detemir 100 UNITS/ML 100 UNITS in Pre-Filled Syringe 1 EACH SC SCH (09:51)
--- NOTE | 2017-09-10 10:00 | PDOC.PN ---
- Subjective Encounter Start Date: 09/10/17 Encounter Start Time: 09:00 Patient seen and examined. No new complaints. No overnight events - Objective Resuscitation Status: Resuscitation Status FULL:Full Resuscitation MAR Reviewed: Yes Vital Signs & Weight: Vital Signs (12 hours) Temp Pulse Resp BP BP Pulse Ox 09/10/17 08:42 98.2 F 87 18 138/94 H 97 09/10/17 08:04 87 138/94 H 09/10/17 08:00 98.6 F 87 18 97 09/10/17 07:58 87 138/94 H 09/10/17 04:11 98.6 F 87 18 160/92 H 97 09/10/17 02:12 98.4 F 88 16 152/92 H 97 Weight Admit Weight 219 lb 12.814 oz Weight 219 lb 12.814 oz I&O: 09/09/17 09/10/17 09/11/17 06:59 06:59 06:59 Intake Total 2450 Balance 2450 Result Diagrams: 09/09/17 07:14 09/10/17 05:29 Additional Labs: Accuchecks 09/10/17 09/09/17 09/09/17 05:04 20:30 16:19 POC Glucose 411 H 371 H 292 H 09/09/17 11:28 POC Glucose 307 H Phys Exam - Physical Examination Constitutional: NAD HEENT: PERRLA, moist MMs, sclera anicteric Neck: no JVD, supple Respiratory: no wheezing, no rales, no rhonchi Cardiovascular: RRR, no significant murmur, no rub Gastrointestinal: soft, non-tender, no distention, positive bowel sounds Musculoskeletal: no edema, pulses present Neurological: non-focal, normal sensation, moves all 4 limbs Psychiatric: normal affect, A&O x 3 Skin: no rash, normal turgor Dx/Plan (1) Lumbar disc disease with radiculopathy Code(s): M51.16 - INTERVERTEBRAL DISC DISORDERS W RADICULOPATHY, LUMBAR REGION Status: Chronic (2) Cocaine abuse Code(s): F14.10 - COCAINE ABUSE, UNCOMPLICATED Status: Acute Comment: (3) Anxiety and depression Code(s): F41.9 - ANXIETY DISORDER, UNSPECIFIED; F32.9 - MAJOR DEPRESSIVE DISORDER, SINGLE EPISODE, UNSPECIFIED Status: Chronic (4) CAD (coronary artery disease) Code(s): I25.10 - ATHSCL HEART DISEASE OF [place] CORONARY ARTERY W/O ANG PCTRS Status: Chronic Qualifiers: Coronary Disease-Associated Artery/Lesion type: [place] artery [place] vs. 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: with chcf use Qualified Code(s): E11.65 - Type 2 diabetes mellitus with hyperglycemia; Z79.4 - care home (current) use of insulin Comment: (7) HTN (hypertension) Code(s): I10 - ESSENTIAL (PRIMARY) HYPERTENSION Status: Chronic Qualifiers: Hypertension type: essential hypertension Qualified Code(s): I10 - Essential (primary) hypertension Comment: (8) Obesity Code(s): E66.9 - OBESITY, UNSPECIFIED Status: Chronic Qualifiers: Obesity type: unspecified obesity type (9) Toe osteomyelitis, right Code(s): M86.9 - OSTEOMYELITIS, UNSPECIFIED Status: Resolved Comment: (10) UTI (urinary tract infection) Status: Acute (11) Acute worsening of stage 3 chronic kidney disease Code(s): N18.3 - CHRONIC KIDNEY DISEASE, STAGE 3 (MODERATE) Status: Acute - Plan cont current plan of care * medication reviewed as below * symptomatic treatment * see discharge katherine. Review of Systems - Review of Systems ENT: negative: Ear Pain, Ear Discharge, Nose Pain, Nose Discharge, Nose Congestion, Mouth Pain, Mouth Swelling, Throat Pain, Throat Swelling, Other Respiratory: negative: Cough, Dry, Shortness of Breath, Hemoptysis, SOB with Excertion, Pleuritic Pain, Sputum, Wheezing Cardiovascular: negative: chest pain, palpitations, orthopnea, paroxysmal nocturnal dyspnea, edema, light headedness, other Gastrointestinal: negative: Nausea, Vomiting, Abdominal Pain, Diarrhea, Constipation, Melena, Hematochezia, Other Genitourinary: negative: Dysuria, Frequency, Incontinence, Hematuria, Retention , Other Musculoskeletal: negative: Neck Pain, Shoulder Pain, Arm Pain, Back Pain, Hand Pain, Leg Pain, Foot Pain, Other Skin: negative: Rash, Lesions, Raul, Bruising, Other - Medications/Allergies Allergies/Adverse Reactions: Allergies Allergy/AdvReac Type Severity Reaction Status Date / Time lisinopril Allergy Anaphylaxis Verified 09/04/17 22:10 Medications: Current Medications Acetaminophen (Tylenol) 650 mg PO Q4H PRN PRN Reason: Headache/Fever or Mild Pain Last Admin: 09/07/17 06:36 Dose: 650 mg Acetaminophen/Codeine Phosphate (Tylenol #3) 1 tab PO Q4H PRN PRN Reason: Moderate Pain (4-6) Last Admin: 09/10/17 07:57 Dose: 1 tab Hydrocodone Bitart/Acetaminophen (Tracy 5/325) 1 tab PO Q4H PRN PRN Reason: Pain 7-10 Last Admin: 09/09/17 01:45 Dose: 1 tab Al Hydroxide/Mg Hydroxide (Maalox) 15 ml PO Q4H PRN PRN Reason: Heartburn or Indigestion Amlodipine Besylate (Norvasc) 10 mg PO DAILY [facility] Last Admin: 09/10/17 07:58 Dose: 10 mg Artificial Tears (Tears Naturale) 0 drop EA EYE PRN PRN PRN Reason: Dry Eyes Aspirin (Aspirin) 325 mg PO DAILY [facility] Last Admin: 09/10/17 07:58 Dose: 325 mg Atorvastatin Calcium (Lipitor) 40 mg PO HS [facility] Last Admin: 09/09/17 21:05 Dose: 40 mg Carvedilol (Coreg) 25 mg PO BID-[facility] Last Admin: 09/10/17 07:57 Dose: 25 mg Cyclobenzaprine HCl (Flexeril) 10 mg PO TIDPRN PRN PRN Reason: Muscle Spasm Last Admin: 09/10/17 03:16 Dose: 10 mg Dextrose/Water (Dextrose 50%) 25 gm SLOW IVP PRN PRN PRN Reason: Hypoglycemia Famotidine (Pepcid) 20 mg PO BID [facility] Last Admin: 09/10/17 08:04 Dose: 20 mg Gabapentin (Neurontin) 300 mg PO TID [facility] Last Admin: 09/10/17 07:57 Dose: 300 mg Glucagon (Glucagon) 1 mg IM PRN PRN PRN Reason: Hypoglycemia Guaifenesin (Robitussin Sf) 200 mg PO Q4H PRN PRN Reason: Cough Hydralazine HCl (Apresoline) 100 mg PO TID [facility] Last Admin: 09/10/17 08:04 Dose: Not Given Hydralazine HCl (Apresoline) 10 mg SLOW IVP Q4H PRN PRN Reason: Systolic BP > 180 Dextrose/Water (D5w) 1,000 mls @ 0 mls/hr IV .Q0M PRN; As Directed PRN Reason: Hypoglycemia Insulin Detemir 95 units/ (Miscellaneous Medication) 0.95 mls @ 0 mls/hr SC HS [facility] Last Admin: 09/09/17 21:08 Dose: 0.95 mls Insulin Detemir 100 units/ (Miscellaneous Medication) 1 mls @ 0 mls/hr SC QAM [facility] Last Admin: 09/10/17 09:51 Dose: 1 mls Sodium Chloride (Normal Saline 0.9%) 1,000 mls @ 70 mls/hr IV .[id number] [facility] Last Admin: 09/10/17 01:25 Dose: 1,000 mls Insulin Human Lispro (Humalog) 0 units SC .MODERATE SLIDING SC PRN PRN Reason: Moderate Correction[place] Scale Last Admin: 09/10/17 05:18 Dose: 10 unit Insulin Human Lispro (Humalog) 0 units SC .BEDTIME SLIDING SC PRN PRN Reason: Bedtime Correctional Scale Last Admin: 09/09/17 21:09 Dose: 5 unit Insulin Human Lispro (Humalog) 15 units SC TID-[facility] Last Admin: 09/10/17 08:01 Dose: 15 unit Loperamide HCl (Imodium) 2 mg PO PRN PRN PRN Reason: Diarrhea/Loose Stools Loratadine (Claritin) 10 mg PO DAILYPRN PRN PRN Reason: Sinus Symptoms Losartan Potassium (Cozaar) 50 mg PO DAILY [facility] Last Admin: 09/10/17 07:58 Dose: 50 mg Magnesium Hydroxide (Milk Of Magnesium) 30 ml PO DAILYPRN PRN PRN Reason: Constipation Metformin HCl (Glucophage) 1,000 mg PO BID-[facility] Last Admin: 09/10/17 07:58 Dose: 1,000 mg Mineral Oil/White Petrolatum (Eucerin Cream) 0 gm TOP BIDPRN PRN PRN Reason: Dry Skin Morphine Sulfate (Morphine) 4 mg SLOW IVP Q3H PRN PRN Reason: Pain Last Admin: 09/10/17 09:51 Dose: 4 mg Ondansetron HCl (Zofran Odt) 4 mg PO Q6H PRN PRN Reason: Nausea/Vomiting Last Admin: 09/07/17 03:44 Dose: 4 mg Ondansetron HCl (Zofran) 4 mg IVP Q6H PRN PRN Reason: Nausea/Vomiting Last Admin: 09/08/17 21:02 Dose: 4 mg Phenol (Chloraseptic [place] 180 Ml Bot) 0 ml PO PRN PRN PRN Reason: Sore Throat Saccharomyces Boulardii (Florastor) 250 mg PO DAILY [facility] Last Admin: 09/10/17 07:59 Dose: 250 mg Senna (Senokot) 2 tab PO HSPRN PRN PRN Reason: Constipation Sodium Chloride ([place] Nasal [place] 0.65%) 0 ml EA NARE QIDPRN PRN PRN Reason: Nasal Congestion Temazepam (Restoril) 15 mg PO HSPRN PRN PRN Reason: Insomnia Last Admin: 09/09/17 22:47 Dose: 15 mg
--- NOTE | 2017-09-10 12:41 | DIS ---
DATE OF ADMISSION: 09/04/2017 DATE OF DISCHARGE: 09/10/2017 PRIMARY CARE PHYSICIAN: [facility] call admission. DISCHARGE DISPOSITION: Home. PRIMARY DISCHARGE DIAGNOSES: 1. Suspected osteomyelitis ruled out. 2. Status post incision and debridement of callus and diabetic wound lesion. 3. Urinary tract infection due to gram negative yao treated in the hospital. 4. Acute on chronic low back pain with intractable back pain due to lumbar disk disease with radicul opathy. 5. Cocaine abuse. 6. Acute on chronic kidney failure, baseline chronic kidney disease stage 3. SECONDARY DISCHARGE DIAGNOSES: Anxiety, depression, coronary artery disease, chronic kidney disease stage 3, diabetes type 2, hypertension, lumbar disk disease with radiculopathy, obesity with body mas s index 35. PRIMARY PROCEDURE/OPERATION: Dr. Amezcua did sharp debridement of diabetes calloused skin lesion. RADIOLOGICAL INVESTIGATION: Foot x-ray showed persistent irregularity of distal aspect of distal pha lanx of the first digit. Vascular ultrasound was negative for any DVT. Lumbar spine MRI showed disk bulge at L4-L5 with L5 nerve root compression. Renal ultrasound was unremarkable. SIGNIFICANT LABORATORY DATA: WBC 8.1, hemoglobin 11.6, platelet 192. Sodium 130, potassium 5.0, BUN 30, creatinine 2.03, glucose variable from 468, calcium 8.4. LFT: AST 78, ALT 80, alkaline phospha te 208, albumin 3.8. Sodium 110. Urine drug screen positive for cocaine. Urine culture grew gram n egative yao. DISCHARGE MEDICATIONS: Tylenol No. 3 one or two tablets q.6 hourly p.r.n. #60 prescribed, amlodipine 10 mg p.o. daily, aspirin 324 mg p.o. daily, Lipitor 40 mg p.o. at bedtime, Coreg 25 mg p.o. b.i.d., Flexeril 10 mg t.i.d. p.r.n., Nexium 20 mg p.o. daily, gabapentin 300 mg p.o. t.i.d., Humalog 15 uni ts subcu t.i.d. plus sliding scale, Levemir 100 units subcu b.i.d., Cozaar 25 mg p.o. daily, metformi n 1000 mg p.o. b.i.d. CONTRAINDICATIONS: None. CODE STATUS: FULL CODE. INPATIENT CONSULTANTS: Dr. Amezcua was consulted for diabetic foot infection and he did sharp debride ment of diabetes callus lesion with ulceration. Dr. Russell was consulted while in hospital and he was saying like there is no evidence of osteomyelitis, but he wanted to wait for another 3-6 weeks and o utpatient evaluation. Dr. Palencia was consulted for back pain and he recommended outpatient follow up for surgical evaluation. TEST RESULTS PENDING ON DISCHARGE: None. ALLERGIES: LISINOPRIL. DISCHARGE PLAN: Post hospital, patient will follow up with Dr. Palencia, Dr. Amezcua and Dr. Russell as i nstructed. HOSPITAL COURSE: A 41-year-old female with above-mentioned medical problem who was admitted by Dr. Tena rizo. Please see her H&P for further detail. During this admission, mainly she came to ER for suspe cted toe osteomyelitis. She has finished complete course of antibiotic therapy via IV. Foot x-ray s howed persistent irregularity. Dr. Amezcua was consulted and he was not thinking that this patient do es need any further IV antibiotic therapy. He only did mild surgical procedure with removal of callu s. Wound care team was following while in hospital. Dr. Russell was consulted while in hospital and he was also thinking that patient has improvement after IV antibiotic therapy and he does not want to continue IV antibiotic therapy while in hospital, but rather he recommended outpatient followup with him in 3-6 weeks. At that time, we will decide about IV antibiotic therapy or not and at that time he will decide about removing of Villalba catheter. This patient was also having severe back pain and that is why we did lumbar spine MRI that showed L4- L5 disk bulge which was pressing L5 nerve root and that is why Dr. Palencia was consulted and he recomm ended that because of cocaine and because of labile diabetes as well as suspected osteomyelitis and U TI, he rather recommended to treat medically and pain control and then he will evaluate her for outpa tient surgery if needed. While in hospital, her blood sugar was extremely labile. I have to increase 200 units subcu b.i.d. Rest of medication was continued as per previous. While in hospital, she was given IV fluid for acut e on chronic kidney failure. Her renal function is improving towards normal. Initially, we were planning to send her to rehab, but patient was relatively felt better by the time of discharge and her insurance was not allowing her to go to our local [facility] and that is why patient declined to go to [facility], rather she wanted to go home with pain medication. All new medication prescription sent to her pharmacy. The patient is seen and examined at bedside to day. Please see my progress note from today for further detail.
== END 2017-09-10 13:46 | disposition home or self-care (01) | DRG 638 ==
LOC: SCSER 15:20 → 3SE 18:00 → T4-B 09-05 07:14
PROVIDERS: ADMIT Internal Medicine Infectious Disease; ATTEND Internal Medicine Infectious Disease
PROC: 0HBMXZZ Excision of Right Foot Skin, External Approach (ICD-10-PCS; principal; 2017-09-05)
DX: E11.621 Type 2 diabetes mellitus with foot ulcer (principal); M86.8X7 Other osteomyelitis, ankle and foot; E11.22 Type 2 diabetes mellitus with diabetic chronic kidney disease; E11.40 Type 2 diabetes mellitus with diabetic neuropathy, unspecified; N17.9 Acute kidney failure, unspecified; N18.3 Chronic kidney disease, stage 3 (moderate); N39.0 Urinary tract infection, site not specified; L84 Corns and callosities; E11.65 Type 2 diabetes mellitus with hyperglycemia; Z79.4 Long term (current) use of insulin; I12.9 Hypertensive chronic kidney disease with stage 1 through stage 4 chronic kidney disease, or unspecified chronic kidney disease; I25.10 Atherosclerotic heart disease of native coronary artery without angina pectoris; M51.16 Intervertebral disc disorders with radiculopathy, lumbar region; F14.10 Cocaine abuse, uncomplicated; L97.519 Non-pressure chronic ulcer of other part of right foot with unspecified severity; F41.9 Anxiety disorder, unspecified; F32.9 Major depressive disorder, single episode, unspecified; E66.9 Obesity, unspecified; Z68.35 Body mass index [BMI] 35.0-35.9, adult
CPT/HCPCS: 36415; 36416; 72158; 76770; 80048; 80053; 80306; 82436; 83036; 83690; 84133; 84300; 84703; 85007; 85025; 85027; 85652; 86140; 87086; 96365; 96367; 96368; 96375; 99406; J2270; A4216; A9579; G8978-GP-CL; G8979-GP-CJ; G8987-GO-CJ; G8988-GO-CI; J0696; J1450; J1815; J2405; J3370; J7050; Q0162

== ENCOUNTER 2017-09-25 17:06 | Inpatient (IN) | payer OTHER ==
--- NOTE | 2017-09-25 18:36 | RAD ---
THREE VIEWS RIGHT FOOT: 09/25/17 COMPARISON: 09/04/17. HISTORY: Gangrene of the toes with nonhealing wounds. Evaluate for osteomyelitis. FINDINGS: Three views of the right foot shows no evidence of acute fracture or dislocation. There is stable rem odeling and sclerosis of the distal phalanges of the great toe and small toe. These are unchanged com pared to the prior exam. No new osseous erosions are seen. No degenerative changes are present. IMPRESSION: No significant bony change compared to the prior radiographs to suggest osteomyelitis. POS: SHANTANU
[2017-09-25] MEDS ORDERED: Morphine 4 MG/ML VIAL ONE ×2 (21:35→22:26)
[2017-09-25 22:00] LABS: #Eosinphils 0.1 thou/uL (0.0-0.7); #Lymphocytes 0.9 thou/uL (1.20-3.40); #Monocytes 0.7 thou/uL (0.11-0.59); #Neutrophils 9.5 thou/uL (1.40-6.50); %Eosinophils 0.8 % (0.0-10.0); %Lymphocytes 8.2 % (21.0-51.0); Hemoglobin 10.9 g/dL (12.0-16.0); Mean Corpuscular HGB CONC 35.3 g/dL (32.0-36.0); Mean Corpuscular Hemoglobin 31.4 pg (27.0-31.0); Mean Corpuscular Volume 88.9 fl (81.0-99.0); Mean Platelet Volume 7.9 fL (7.4-10.4); Platelet Count 193 thou/uL (130-400); RBC Distribution Width 11.8 % (11.5-14.5); Red Blood Cell (RBC) Count 3.48 mill/uL (4.20-5.40); White Blood Cell (WBC) Count 11.2 thou/uL (4.8-10.8)
[2017-09-25] MEDS ORDERED: Acetaminophen 500 MG TAB ONE (22:00)
[2017-09-25 22:08] LABS: ALT (SGPT) 33 U/L (8-55); AST (SGOT) 26 U/L (5-34); Albumin 3.9 g/dL (3.5-5.0); Alkaline Phosphatase 134 U/L (40-150); Anion Gap 15 mmol/L (10-20); BUN (Urea Nitrogen) 19 mg/dL (7.0-18.7); Bilirubin, Total 0.3 mg/dL (0.2-1.2); Calc. Creatinine Clearance 0 mL/min (70-130); Calcium 8.5 mg/dL (7.8-10.44); Carbon Dioxide 19 mmol/L (22-29); Chloride 105 mmol/L (98-107); Estimated GFR-MDRD 34; Glucose 255 mg/dL (70-105); Protein, Total 6.9 g/dL (6.0-8.3); Sodium 135 mmol/L (136-145)
[2017-09-25 22:51] LABS: Bilirubin Negative (Negative); Blood, Urine Negative (Negative); Clarity CLEAR (Clear); Glucose, Urine (Dipstick) 500 mg/dL (Negative); Leukocyte Negative (Negative); Nitrite Negative (Negative); Protein, Urine (Dipstick) 300 mg/dL (Neg-Trace); Specific Gravity, Urine 1.019 (1.002-1.036); Urobilinogen 0.2 mg/dL (0.2-1.0); pH, Urine 5.5 (5.0-9.0)
[2017-09-25 22:53] LABS: Bacteria/HPF None Seen HPF (None Seen); Hyaline Casts/LPF 0-3 HYALINE CAST LPF (0-3 Hyaline); Pathc Cast-AUWi Flag 0.72 (0-2.49); RBC/HPF 0-3 HPF (0-3); Squamous Epithelial 0-3 HPF (0-3); WBC/HPF 0-3 HPF (0-3)
[2017-09-25] MEDS ORDERED: Ketorolac Tromethamine 30 MG/ML VIAL ONE (23:37)
[2017-09-25] MEDS ORDERED: Ondansetron HCl/PF 4 MG/2 ML Vial ONE (23:51)
[2017-09-26 00:52] LABS: Amphetamine Not Detected (NotDetected); Barbiturates Screen Not Detected (NotDetected); Benzodiazepine Screen Not Detected (NotDetected); Cocaine Metabolite Screen Not Detected (NotDetected); Medtox Control Line Valid? VALID (VALID); Medtox Reader # READER 1; Methadone Not Detected (NotDetected); Methamphetamine Not Detected (NotDetected); Opiate Screen Not Detected (NotDetected); Oxycodone Screen Not Detected (NotDetected); Phencyclidine (PCP) Not Detected (NotDetected); THC/Cannabinoid Screen Not Detected (NotDetected); Tricyclic Screen Not Detected (NotDetected)
[2017-09-26] MEDS ORDERED: Acetaminophen 500 MG TAB ONE (00:54)
[2017-09-26] MEDS ORDERED: Ondansetron ODT 4 MG TAB SL PRN (01:22)
[2017-09-26] MEDS ORDERED: Acetaminophen 325 MG TAB PO PRN ×2 (01:22→03:45)
[2017-09-26] MEDS ORDERED: Ondansetron HCl/PF 4 MG/2 ML Vial IVP PRN (01:22)
[2017-09-26 03:02] VITALS: BMI 33.5
[2017-09-26 03:12] LABS: Lactic Acid 3.7 mmol/L (0.5-2.2)
[2017-09-26] MEDS ORDERED: Dextrose 5% in Water 1,000 ML IV PRN (03:45)
[2017-09-26] MEDS ORDERED: Zolpidem Tartrate 5 MG TAB PO PRN (03:45)
[2017-09-26] MEDS ORDERED: traMADol HCl 50 MG TAB PO PRN (03:45)
[2017-09-26] MEDS ORDERED: Ondansetron ODT 4 MG TAB PO PRN (03:45)
[2017-09-26] MEDS ORDERED: Milk Of Magnesia 30 ML UDCUP PO PRN (03:45)
[2017-09-26] MEDS ORDERED: Diabetic Tussin 200 MG/10 ML UDCUP PO PRN (03:45)
[2017-09-26] MEDS ORDERED: Mag-Al 1200 mg/1200 mg/30 ML UDCUP PO PRN (03:45)
[2017-09-26] MEDS ORDERED: Loratadine 10 MG TAB PO PRN (03:45)
[2017-09-26] MEDS ORDERED: Insulin Regular 300 UNITS/3 ML VIAL SC PRN (03:45)
[2017-09-26] MEDS ORDERED: Sodium Chloride 0.65% Nasal 44 ML BOT EA NARE PRN (03:45)
[2017-09-26] MEDS ORDERED: Eucerin (Mineral Oil/Petrolatum,White) 30 gm Jar TOP PRN (03:45)
[2017-09-26] MEDS ORDERED: Senokot 8.6 MG TAB PO PRN (03:45)
[2017-09-26] MEDS ORDERED: Chloraseptic Spray 180 ml Bottle PO PRN (03:45)
[2017-09-26] MEDS ORDERED: Loperamide HCl 2 MG CAP PO PRN (03:45)
[2017-09-26] MEDS ORDERED: hydrALAZINE 20 MG/ML VIAL SLOW IVP PRN (03:45)
[2017-09-26] MEDS ORDERED: Dextrose 50% Abboject 50 ML SYRINGE SLOW IVP PRN (03:45)
[2017-09-26] MEDS ORDERED: Artificial Tears 18 DROP/0.9 ML EA EYE PRN (03:45)
[2017-09-26] MEDS ORDERED: Acetaminophen/Codeine 30-300mg Tablet PO PRN (03:49)
--- NOTE | 2017-09-26 04:15 | HP ---
PRIMARY CARE PHYSICIAN: Dr. Madison King. REASON FOR ADMISSION: Sepsis. HISTORY OF PRESENT ILLNESS: A 41-year-old female who was recently admitted in our hospital for diabe tic wound over right foot. At that time, Dr. Amezcua was consulted and he scraped a callus and he rec ommended discharge. Dr. Russell was also consulted at that time, patient was on antibiotic therapy, bu t he recommended to stop antibiotic therapy, and also patient was recently given a course of IV antib iotic therapy through the [facility]. Patient already finished 6 weeks of IV antibiotic therapy for os teomyelitis. Dr. Russell recommended that he will follow up with the patient as an outpatient basis. This patient was started developing fever with chills and that is why she decided to come to emergenc y room for evaluation. She has [facility] in place. She denies any UTI symptoms. She denies any drug abuse. She had cocaine positive last admission. She also had lumbar disk disease with radiculopath y. At that time, Neurosurgeon was consulted and they recommended medical therapy. Today in the carmen gency room, initially, she was afebrile, but subsequently she developed temperature of 101.8. She oseguera d x-ray of foot, which was unremarkable. Her fever increased to 103.2 in the emergency room. Patien t also had lactic acidosis. Patient was meeting sepsis criteria and that is why we decided to keep t his patient in hospital for further evaluation and treatment. REVIEW OF SYSTEMS: Please see my HPI for pertinent positive and negative. All other review of syste m reviewed and negative except as mentioned in the HPI: Constitutional: Weight loss or gain, abilit y to conduct usual activities. Skin: Rash, itching. Eyes: Double vision, pain. ENT/Mouth: Nose bleeding, neck stiffness, pain, tenderness. Cardiovascular: Palpitations, dyspnea on exertion, orth opnea. Respiratory: Shortness of breath, wheezing, cough, hemoptysis, fever, or night sweats. Juanpablo rointestinal: Poor appetite, abdominal pain, heartburn, nausea, vomiting, constipation, or diarrhea. Genitourinary: Urgency, frequency, dysuria, nocturia. Musculoskeletal: Pain, swelling. Neurolog ic/Psychiatric: Anxiety, depression. Allergy/Immunologic: Skin rash, bleeding tendency. PAST MEDICAL HISTORY: Lumbar disk disease, morbid obesity, diabetes type 2, hypertension, coronary a rtery disease, right foot ulcer, chronic kidney disease stage 3, restless leg syndrome, gastroesophag eal reflux disease. PAST SURGICAL HISTORY: x2, back surgery L5-S1, vasectomy, tonsillectomy, tubal ligation, c ardiac catheterization. PAST PSYCHIATRIC HISTORY: Anxiety and depression. SOCIAL HISTORY: Patient has history of cocaine abuse. She also has a history of smoking. She quit smoking about 2 weeks ago. She lives at home with her with children. FAMILY HISTORY: Diabetes, hypertension runs among several family members. ALLERGIES: LISINOPRIL. CURRENT HOME MEDICATIONS: Patient was discharged home on following medication: Amlodipine 10 mg p.o . daily, Lipitor 40 mg p.o. at bedtime, Coreg 25 mg p.o. b.i.d., Nexium 20 mg p.o. daily, gabapentin 300 mg p.o. t.i.d., Humalog insulin as per sliding scale, hydrochlorothiazide 12.5 mg p.o. daily, Lev magali 80 units subcutaneously b.i.d., losartan 25 mg p.o. daily, metformin 1000 mg p.o. b.i.d., Tyleno l No. 3 one or two tablets q.6 hourly p.r.n., Flexeril 10 mg t.i.d. p.r.n. EMERGENCY ROOM COURSE: Patient is given vancomycin, Zosyn, morphine 2 mg, Tylenol 1 gram, Toradol 15 mg, Zofran 4 mg, morphine 4 mg. PHYSICAL EXAMINATION: VITAL SIGNS: On arrival, blood pressure 153/82, pulse of 120, temperature 103.2, saturation 97% on r oom air, weight 107 kilograms. GENERAL: Patient is currently alert, awake, mild distress due to back pain. HEAD: Normocephalic, atraumatic. EYES: Pupils round, reactive to light. Extraocular muscle intact. ENT: Oropharynx within normal limits. Moist mucous membranes, no oral lesion, no pharyngeal erythem a, no exudate. NECK: Supple, no JVD, no thyromegaly, no carotid bruit, no jugular venous distention. LUNGS: Clear to auscultation without any rhonchi or rales. CARDIAC: S1, S2 appears regular. No murmur, no gallop, no rub. ABDOMEN: Soft, bowel sounds present, nontender, nondistended. No organomegaly, no mass, no suprapub ic tenderness. BACK: Unremarkable. No CVA tenderness. EXTREMITIES: Upper extremity passive movement of all joints are normal. Lower extremities, patient does have ulcer in medial first digit metacarpophalangeal joint as well as ulcer over the fifth metac arpophalangeal joint distally. NEUROLOGIC: Nonfocal examination. Patient moves all 4 limbs. SKIN: No skin rash other than ulcer over the first and fifth metacarpophalangeal joint on the right side. HEMATOLOGIC: No lymphadenopathy. PSYCHIATRIC: Normal affect. SIGNIFICANT LABORATORY DATA: 1. X-ray of foot showing no significant bony changes compared to prior radiograph to suggest osteomy elitis. 2. CBC: WBC 11.2, hemoglobin 10.9, platelet 193. BMP: Sodium 135, potassium 4.0, chloride 105, BU N 19, creatinine 1.67, glucose 255, calcium 8.5. Lactic acid 4.1. 3. LFT: AST 26, ALT 30, alkaline phosphatase 134, albumin 3.9. Urinalysis; glucosuria and protein uria. Urine drug screen negative. ASSESSMENT AND PLAN: 1. Sepsis, source of infection is unclear at this point, but I am suspecting of diabetic foot infect ion, underlying bacteremia is also possible given [facility] for a long period of time. 2. Urinary tract infection less likely given abnormal urinalysis. For part of workup, we will also obtain chest x-ray to rule out any pneumonia, though less likely given patient does not have any resp iratory symptoms. 3. Lactic acidosis likely due to sepsis. We will repeat lactic acid tomorrow morning. 4. Diabetes, type 2, uncontrolled. We will continue her insulin 80 units subcutaneous b.i.d. along with metformin 1000 mg p.o. b.i.d. 5. Acute lumbar disk disease with radiculopathy. Patient will follow up with Neurosurgeon as an out patient basis. Patient is advised to follow up with outpatient rehabilitation facility. At this poi nt, we will continue Tylenol No. 3 one or two tablets q.6 hourly p.r.n., along with Flexeril 10 mg t. i.d. p.r.n. 6. Hypertension. If blood pressure permits, then we will continue losartan 25 mg p.o. daily, and Co reg 25 mg p.o. b.i.d. 7. Dyslipidemia. Continue Lipitor 40 mg p.o. at bedtime. 8. Gastroesophageal reflux disease. We will continue Pepcid 20 mg p.o. b.i.d. 9. Diabetic neuropathy. We will continue gabapentin 300 mg p.o. t.i.d. 10. Morbid obesity with BMI 33. Dietary education given, weight loss education given. Healthy life style measures discussed with the patient. 11. Anemia, normocytic, normochromic. We will continue ferrous sulfate 325 mg p.o. daily. 12. Deep venous thrombosis prophylaxis. Lovenox 30 mg subcutaneously daily. 13. Gastrointestinal prophylaxis, Pepcid 20 mg p.o. daily. CODE STATUS: Patient is FULL CODE. Patient's is surrogate decision maker. Disposition plan based on clinical course. We are expecting patient's stay in hospital more than 2 m idnights. During this admission, we will consult Wound Care team as well as Dr. Russell for further ev aluation and treatment.
[2017-09-26] MEDS: Piperacillin/Tazobactam 3.375 GM in Sodium Chloride 0.9% 100 ML IVPB SCH ×3 (05:23→18:35)
[2017-09-26] MEDS: HYDROcodone/Acetaminophen 10/325 mg Tablet PO PRN ×2 (06:34→21:30)
[2017-09-26] MEDS: Hydrochlorothiazide 25 MG TAB PO SCH (08:50)
[2017-09-26] MEDS: Losartan 25 MG TAB PO SCH (08:50)
[2017-09-26] MEDS: metFORMIN 500 MG TAB PO SCH ×2 (08:50→18:35)
[2017-09-26] MEDS: Saccharomyces boulardii 250 MG CAP PO SCH (08:50)
[2017-09-26] MEDS: Amlodipine 10 MG TAB PO SCH (08:51)
[2017-09-26] MEDS: Gabapentin 300 MG CAP PO SCH ×3 (08:51→21:30)
[2017-09-26] MEDS: Carvedilol 25 MG TAB PO SCH ×2 (08:51→18:35)
[2017-09-26] MEDS: Famotidine 20 MG TAB PO SCH (08:52)
[2017-09-26] MEDS: Enoxaparin Sodium 30 MG/0.3 ML SYRINGE SC SCH (08:52)
[2017-09-26] MEDS: INSULIN DETEMIR SC SCH ×2 (08:53→21:31)
[2017-09-26] MEDS: ADMIXTURE FEE SC SCH ×2 (08:53→21:31)
[2017-09-26] MEDS: Cyclobenzaprine 10 MG TAB PO PRN (08:59)
[2017-09-26] MEDS: HumaLOG 300 UNITS/3 ML VIAL SC PRN ×3 (09:05→18:35)
[2017-09-26] MEDS: Morphine 5 MG/ML SYRINGE SLOW IVP PRN ×2 (12:29→23:20)
[2017-09-26] MEDS: Vancomycin HCl 1.25 GM in Sodium Chloride 0.9% 250 ML 250 ML IVPB SCH ×2 (12:30→23:07)
--- NOTE | 2017-09-26 14:15 | PDOC.EVN ---
Event Note - Event Note Event Note: pt seen and examined .still has lot of pain in foot,left.wound photos noted.pt finisghing PT. Cont Empiric ABx.awaiting final Cx results and ID recs. May need discontinuation of [facility]Port. may need Feet MRI. AM labs. Adjust pain meds as she is getting too much acetaminophen
[2017-09-26] MEDS: Sodium Chloride 0.9% 1,000 ML IV SCH (18:35)
[2017-09-26] MEDS: Atorvastatin Calcium 40 MG TAB PO SCH (21:30)
[2017-09-27] MEDS: Cyclobenzaprine 10 MG TAB PO PRN ×2 (00:12→16:28)
[2017-09-27] MEDS: Piperacillin/Tazobactam 3.375 GM in Sodium Chloride 0.9% 100 ML IVPB SCH ×5 (00:35→23:26)
[2017-09-27 05:07] LABS: ALT (SGPT) 46 U/L (8-55); AST (SGOT) 28 U/L (5-34); Albumin 3.2 g/dL (3.5-5.0); Alkaline Phosphatase 128 U/L (40-150); Anion Gap 15 mmol/L (10-20); BUN (Urea Nitrogen) 34 mg/dL (7.0-18.7); Calc. Creatinine Clearance 55 mL/min (70-130); Calcium 7.3 mg/dL (7.8-10.44); Carbon Dioxide 18 mmol/L (22-29); Chloride 102 mmol/L (98-107); Estimated GFR-MDRD 23; Globulin 2.6 g/dL (2.4-3.5); Glucose 174 mg/dL (70-105); Potassium 4.5 mmol/L (3.5-5.1); Protein, Total 5.8 g/dL (6.0-8.3); Sodium 130 mmol/L (136-145)
[2017-09-27 05:13] LABS: Band 15 % (5-11); Eosinophils 2 % (0-10); Hemoglobin 9.1 g/dL (12.0-16.0); Lymphocytes 1 % (21-51); MDiff Complete? YES; Mean Corpuscular HGB CONC 34.6 g/dL (32.0-36.0); Mean Corpuscular Hemoglobin 32.1 pg (27.0-31.0); Mean Corpuscular Volume 92.6 fl (81.0-99.0); Mean Platelet Volume 9.4 fL (7.4-10.4); Monocytes 1 % (0-10); Neutrophil 81 % (42-75); PLT Morphology Comment Appears Decreased; Platelet Count 99 thou/uL (130-400); RBC Distribution Width 12.1 % (11.5-14.5); Red Blood Cell (RBC) Count 2.83 mill/uL (4.20-5.40); White Blood Cell (WBC) Count 12.6 thou/uL (4.8-10.8)
--- NOTE | 2017-09-27 07:14 | CON ---
DATE OF CONSULTATION: 09/26/2017 REASON FOR CONSULTATION: A 41-year-old patient known to me from prior visits who has a history of ty pe 2 diabetes, hypertension, neuropathy and coronary disease, whom I had seen in the past for a right foot inflammatory process. In 09/05/2017 she had presented after having been treated for osteomyeli tis of the right first metatarsophalangeal site and distal digit. We felt that there had been quite a bit of improvement since the previous visit, she had completed IV antimicrobial therapy and we did not recommend any further antimicrobial treatment. This time she presents with fever and chills and came to the emergency room for evaluation. The patient had a MediPort placed by Dr. Amezcua because o f her renal function and concerns regarding progression of renal disease and requirement for dialysis access in the future. She had some back pain and she also had upper respiratory symptoms with cough . No headaches, no visual symptoms. No sore throat, odynophagia, dysphagia, no vomiting, no diarrhe a, no genitourinary symptoms. In the emergency room, her temperature was 103.26 with lactic acidosis, blood pressure 150/80, pulse 120, respirations 22, O2 sat 97%. Initial exam showed clear lungs. Abdomen was soft and nontender. She had an ulcer in the medial first DPJ. No other skin rash noted. Initial white cell count 11.2, hemoglobin 10, platelets 193, creatinine 1.67. Lactic acid 4.1, AST 26, ALT 30. PAST MEDICAL HISTORY: Type 2 diabetes, neuropathy, previous debridement of right first toe, protract ed antimicrobial therapy for osteomyelitis. Renal insufficiency stage 3. Villalba catheter placement for protracted IV antimicrobial therapy administration, chronic back pain, diskectomy L5-S1, tonsill ectomy. ALLERGIES: LISINOPRIL. CURRENT MEDICATIONS: [place], Maalox, Norvasc, Lipitor, Coreg, Flexeril, Lovenox, Pepcid, Neurontin, g lucagon, insulin, loperamide, magnesium, Zosyn and vancomycin. PHYSICAL EXAMINATION: VITAL SIGNS: T-max 101.9. She is currently 99.4, blood pressure 100/55, pulse 74, respirations 16, O2 sat 97%. SKIN: Shows the previous right first MTP site with no erythema. Still some areas of callus formatio n around that site and the fifth MTP site with an area of deep tissue injury, small about less than 1 cm with bruising. No lymphadenopathy. HEENT: Noncontributory. She does have some nasal obstipation. NECK: Supple. LUNGS: With symmetric clear breath sounds. HEART: S1, S2, regular rate. No S3, S4. ABDOMEN: Soft, not distended or tender. No ascites. No bladder distention. EXTREMITIES: No joint inflammatory activity outside the right foot areas. Pulses 1+ in dorsalis ped is. NEUROLOGIC: Cognitive function appears to be intact. LABORATORY DATA: White cell count 11.2, hemoglobin 10.9, platelets 193, creatinine 1.67. Liver prof ile normal. CRP 19.48, albumin 3.2. Urinalysis was essentially normal except for proteinuria. Micr obiology samples included 2 sets of blood cultures with Citrobacter species. ASSESSMENT: 1. Type 2 diabetes with previous right foot complications which appear to have resolved after treatm ent. 2. Villalba catheter colonization by Citrobacter. DISCUSSION: The most likely scenario is colonization of the Villalba catheter by Citrobacter. She do es have evidence of vascular symptoms which could be related to the bacteremia. No other sites of in volvement are apparent at this time. We will consult Surgery for removal of Villalba catheter, discon tinue vancomycin. Hopefully, we will be able to transition to oral quinolone.
[2017-09-27] MEDS: metFORMIN 500 MG TAB PO SCH ×2 (09:29→16:28)
[2017-09-27] MEDS: Saccharomyces boulardii 250 MG CAP PO SCH (09:29)
[2017-09-27] MEDS: Carvedilol 25 MG TAB PO SCH ×2 (09:30→16:29)
[2017-09-27] MEDS: Amlodipine 10 MG TAB PO SCH (09:30)
[2017-09-27] MEDS: Hydrochlorothiazide 25 MG TAB PO SCH (09:30)
[2017-09-27] MEDS: HumaLOG 300 UNITS/3 ML VIAL SC PRN ×3 (09:32→20:50)
[2017-09-27] MEDS: INSULIN DETEMIR SC SCH ×2 (09:32→20:51)
[2017-09-27] MEDS: Losartan 25 MG TAB PO SCH (09:32)
[2017-09-27] MEDS: ADMIXTURE FEE SC SCH ×2 (09:32→20:51)
[2017-09-27] MEDS: Famotidine 20 MG TAB PO SCH (09:32)
[2017-09-27] MEDS: Gabapentin 300 MG CAP PO SCH ×3 (09:32→20:50)
[2017-09-27] MEDS: Enoxaparin Sodium 30 MG/0.3 ML SYRINGE SC SCH (09:33)
[2017-09-27] MEDS: Sodium Chloride 0.9% 1,000 ML IV SCH ×2 (09:34→20:54)
[2017-09-27] MEDS: HYDROcodone/Acetaminophen 10/325 mg Tablet PO PRN ×2 (09:45→18:03)
--- NOTE | 2017-09-27 10:11 | PDOC.PN ---
- Subjective Encounter Start Date: 09/27/17 Encounter Start Time: 07:20 -: old records requested/rev Patient seen and examined. No new complaints. No overnight events - Objective Resuscitation Status: Resuscitation Status FULL:Full Resuscitation MAR Reviewed: Yes Vital Signs & Weight: Vital Signs (12 hours) Temp Pulse Resp BP Pulse Ox 09/27/17 09:30 74 09/27/17 08:00 98.5 F 72 17 122/73 94 L 09/27/17 04:00 99.4 F 74 16 101/55 L 97 09/27/17 00:00 98.6 F Weight Admit Weight 240 lb Weight 240 lb I&O: 09/26/17 09/27/17 09/28/17 06:59 06:59 06:59 Intake Total 1060 3418 Output Total 300 1100 Balance 760 2318 Result Diagrams: 09/27/17 04:04 09/27/17 04:04 Additional Labs: Accuchecks 09/27/17 09/26/17 09/26/17 05:54 20:29 16:39 POC Glucose 183 H 318 H 402 H 09/26/17 11:45 POC Glucose 360 H Phys Exam - Physical Examination Constitutional: NAD HEENT: PERRLA, moist MMs, sclera anicteric Neck: no JVD, supple Respiratory: no wheezing, no rales, no rhonchi Cardiovascular: RRR, no significant murmur, no rub Gastrointestinal: soft, non-tender, no distention, positive bowel sounds Musculoskeletal: no edema, pulses present Neurological: non-focal, normal sensation, moves all 4 limbs Lymphatic: no nodes Psychiatric: normal affect, A&O x 3 Skin: no rash, normal turgor Dx/Plan (1) Acute worsening of stage 3 chronic kidney disease Code(s): N18.3 - CHRONIC KIDNEY DISEASE, STAGE 3 (MODERATE) Status: Acute (2) Bacteremia associated with intravascular line Code(s): T82.7XXA - INFECT/INFLM REACT D/T OTH CARDI/VASC DEV/IMPLNT/GRFT, INIT ; R78.81 - BACTEREMIA Status: Acute Comment: citrobactor (3) Bloodstream infection due to Olivier catheter Code(s): T80.211A - BLOODSTREAM INFECTION DUE TO CENTRAL VENOUS CATHETER, INIT Status: Acute Comment: hickmen catheter infection (4) Sepsis with acute organ dysfunction Code(s): A41.9 - SEPSIS, UNSPECIFIED ORGANISM; R65.20 - SEVERE SEPSIS WITHOUT SEPTIC SHOCK Status: Acute (5) Thrombocytopenia Code(s): D69.6 - THROMBOCYTOPENIA, UNSPECIFIED Status: Acute Comment: due to sepsis (6) Anemia, normocytic normochromic Code(s): D64.9 - ANEMIA, UNSPECIFIED Status: Chronic (7) Anxiety and depression Code(s): F41.9 - ANXIETY DISORDER, UNSPECIFIED; F32.9 - MAJOR DEPRESSIVE DISORDER, SINGLE EPISODE, UNSPECIFIED Status: Chronic (8) CAD (coronary artery disease) Code(s): I25.10 - ATHSCL HEART DISEASE OF [place] CORONARY ARTERY W/O ANG PCTRS Status: Chronic Qualifiers: (9) CKD (chronic kidney disease) stage 3, GFR 30-59 ml/min Status: Chronic (10) DM type 2 (diabetes mellitus, type 2) Status: Chronic Qualifiers: Comment: (11) HTN (hypertension) Code(s): I10 - ESSENTIAL (PRIMARY) HYPERTENSION Status: Chronic Qualifiers: Comment: (12) Lumbar disc disease with radiculopathy Code(s): M51.16 - INTERVERTEBRAL DISC DISORDERS W RADICULOPATHY, LUMBAR REGION Status: Chronic (13) Obesity Code(s): E66.9 - OBESITY, UNSPECIFIED Status: Chronic - Plan cont current plan of care, continue antibiotics * DC Tele * transfer to medical * continue zosyn * follow culture result * surgeon consulted for olivier catheter removal * after that will do repeat blood culture * medication reviewed as below * symptomatic treatment * pain controlled. Review of Systems - Review of Systems Constitutional: negative: fever, chills, sweats, weakness, malaise, other ENT: negative: Ear Pain, Ear Discharge, Nose Pain, Nose Discharge, Nose Congestion, Mouth Pain, Mouth Swelling, Throat Pain, Throat Swelling, Other Respiratory: negative: Cough, Dry, Shortness of Breath, Hemoptysis, SOB with Excertion, Pleuritic Pain, Sputum, Wheezing Cardiovascular: negative: chest pain, palpitations, orthopnea, paroxysmal nocturnal dyspnea, edema, light headedness, other Gastrointestinal: negative: Nausea, Vomiting, Abdominal Pain, Diarrhea, Constipation, Melena, Hematochezia, Other Genitourinary: negative: Dysuria, Frequency, Incontinence, Hematuria, Retention , Other Musculoskeletal: Back Pain. negative: Neck Pain, Shoulder Pain, Arm Pain, Hand Pain, Leg Pain, Foot Pain, Other Skin: negative: Rash, Lesions, Raul, Bruising, Other - Medications/Allergies Allergies/Adverse Reactions: Allergies Allergy/AdvReac Type Severity Reaction Status Date / Time lisinopril Allergy Anaphylaxis Verified 09/04/17 22:10 Medications: Current Medications Acetaminophen (Tylenol) 650 mg PO Q4H PRN PRN Reason: Headache/Fever or Pain Hydrocodone Bitart/Acetaminophen ([place] 10/325) 1 tab PO Q4H PRN PRN Reason: Moderate Pain (4-6) Last Admin: 09/27/17 09:45 Dose: 1 tab Al Hydroxide/Mg Hydroxide (Maalox) 30 ml PO Q6H PRN PRN Reason: Heartburn or Indigestion Amlodipine Besylate (Norvasc) 10 mg PO DAILY [facility] Last Admin: 09/27/17 09:30 Dose: 10 mg Artificial Tears (Tears Naturale) 0 drop EA EYE PRN PRN PRN Reason: Dry Eyes Atorvastatin Calcium (Lipitor) 40 mg PO HS [facility] Last Admin: 09/26/17 21:30 Dose: 40 mg Carvedilol (Coreg) 25 mg PO BID-[facility] Last Admin: 09/27/17 09:30 Dose: 25 mg Cyclobenzaprine HCl (Flexeril) 10 mg PO TIDPRN PRN PRN Reason: Muscle Spasm Last Admin: 09/27/17 00:12 Dose: 10 mg Dextrose/Water (Dextrose 50%) 25 gm SLOW IVP PRN PRN PRN Reason: Hypoglycemia Enoxaparin Sodium (Lovenox) 30 mg SC 0900 [facility] Last Admin: 09/27/17 09:33 Dose: 30 mg Famotidine (Pepcid) 20 mg PO DAILY [facility] Last Admin: 09/27/17 09:32 Dose: 20 mg Gabapentin (Neurontin) 300 mg PO TID [facility] Last Admin: 09/27/17 09:32 Dose: 300 mg Glucagon (Glucagon) 1 mg IM PRN PRN PRN Reason: Hypoglycemia Guaifenesin (Robitussin Sf) 200 mg PO Q4H PRN PRN Reason: Cough Hydralazine HCl (Apresoline) 10 mg SLOW IVP Q4H PRN PRN Reason: Systolic BP > 180 Hydrochlorothiazide (Hydrochlorothiazide) 12.5 mg PO DAILY [facility] Last Admin: 09/27/17 09:30 Dose: 12.5 mg Dextrose/Water (D5w) 1,000 mls @ 0 mls/hr IV .Q0M PRN; As Directed PRN Reason: Hypoglycemia Insulin Detemir 80 units/ (Miscellaneous Medication) 0.8 mls @ 0 mls/hr SC HS [facility] Last Admin: 09/26/17 21:31 Dose: 0.8 mls Insulin Detemir 80 units/ (Miscellaneous Medication) 0.8 mls @ 0 mls/hr SC QAM [facility] Last Admin: 09/27/17 09:32 Dose: 0.8 mls Piperacillin Sod/Tazobactam (Sod 3.375 gm/ Sodium Chloride) 100 mls @ 200 mls/ hr IVPB Q6HR [facility] Last Admin: 09/27/17 09:31 Dose: 100 mls Sodium Chloride (Normal Saline 0.9%) 1,000 mls @ 75 mls/hr IV .[id number] [facility] Last Admin: 09/27/17 09:34 Dose: Not Given Insulin Human Lispro (Humalog) 0 units SC .AGGRESSIVE SLIDING PRN PRN Reason: Aggressive Correctional Scale Last Admin: 09/27/17 09:32 Dose: 3 unit Insulin Human Regular (Humulin R) 0 units SC .BEDTIME SLIDING SC PRN PRN Reason: Bedtime Correctional Scale Loperamide HCl (Imodium) 2 mg PO PRN PRN PRN Reason: Diarrhea/Loose Stools Loratadine (Claritin) 10 mg PO DAILYPRN PRN PRN Reason: Sinus Symptoms Losartan Potassium (Cozaar) 25 mg PO DAILY [facility] Last Admin: 09/27/17 09:32 Dose: 25 mg Magnesium Hydroxide (Milk Of Magnesium) 30 ml PO DAILYPRN PRN PRN Reason: Constipation Metformin HCl (Glucophage) 1,000 mg PO BID-[facility] Last Admin: 09/27/17 09:29 Dose: 1,000 mg Mineral Oil/White Petrolatum (Eucerin Cream) 0 gm TOP BIDPRN PRN PRN Reason: Dry Skin Morphine Sulfate (Morphine) 4 mg SLOW IVP Q4H PRN PRN Reason: Severe Pain (7-10) Last Admin: 09/26/17 23:20 Dose: 4 mg Ondansetron HCl (Zofran Odt) 4 mg PO Q6H PRN PRN Reason: Nausea/Vomiting Ondansetron HCl (Zofran) 4 mg IVP Q6H PRN PRN Reason: Nausea/Vomiting Phenol (Chloraseptic [place] 180 Ml Bot) 0 ml PO PRN PRN PRN Reason: Sore Throat Saccharomyces Boulardii (Florastor) 250 mg PO DAILY [facility] Last Admin: 09/27/17 09:29 Dose: 250 mg Senna (Senokot) 2 tab PO HSPRN PRN PRN Reason: Constipation Sodium Chloride (Flush - Normal Saline) 10 ml IVF Q12HR [facility] Last Admin: 09/27/17 09:32 Dose: 10 ml Sodium Chloride (Flush - Normal Saline) 10 ml IVF PRN PRN PRN Reason: Saline Flush Sodium Chloride ([place] Nasal [place] 0.65%) 0 ml EA NARE QIDPRN PRN PRN Reason: Nasal Congestion Tramadol HCl (Ultram) 50 mg PO Q4H PRN PRN Reason: Moderate Pain (4-6) Zolpidem Tartrate (Ambien) 5 mg PO HSPRN PRN PRN Reason: Insomnia
[2017-09-27] MEDS ORDERED: Lidocaine 1% w/Epinephrine 1:100K 20 ML VIAL ONE (10:26)
[2017-09-27] MEDS: Morphine 5 MG/ML SYRINGE SLOW IVP PRN ×3 (11:27→23:30)
[2017-09-27] MEDS: Atorvastatin Calcium 40 MG TAB PO SCH (20:50)
[2017-09-28] MEDS: Ondansetron HCl/PF 4 MG/2 ML Vial IVP PRN ×2 (00:28→19:54)
[2017-09-28] MEDS: Morphine 5 MG/ML SYRINGE SLOW IVP PRN ×3 (04:49→14:37)
[2017-09-28] MEDS: Piperacillin/Tazobactam 3.375 GM in Sodium Chloride 0.9% 100 ML IVPB SCH ×2 (04:51→11:45)
[2017-09-28] MEDS: HumaLOG 300 UNITS/3 ML VIAL SC PRN ×3 (05:17→16:43)
[2017-09-28] MEDS: metFORMIN 500 MG TAB PO SCH ×2 (09:02→16:43)
[2017-09-28] MEDS: Gabapentin 300 MG CAP PO SCH ×3 (09:03→19:55)
[2017-09-28] MEDS: Hydrochlorothiazide 25 MG TAB PO SCH (09:04)
[2017-09-28] MEDS: Enoxaparin Sodium 30 MG/0.3 ML SYRINGE SC SCH (09:05)
[2017-09-28] MEDS: INSULIN DETEMIR SC SCH ×2 (09:06→19:55)
[2017-09-28] MEDS: Famotidine 20 MG TAB PO SCH (09:06)
[2017-09-28] MEDS: ADMIXTURE FEE SC SCH ×2 (09:06→19:55)
[2017-09-28] MEDS: Losartan 25 MG TAB PO SCH (09:06)
[2017-09-28] MEDS: Sodium Chloride 0.9% 1,000 ML IV SCH ×2 (09:07→20:00)
[2017-09-28] MEDS: Amlodipine 10 MG TAB PO SCH (09:08)
[2017-09-28] MEDS: Carvedilol 25 MG TAB PO SCH ×2 (09:08→16:43)
[2017-09-28] MEDS: Saccharomyces boulardii 250 MG CAP PO SCH (09:08)
[2017-09-28 09:24] LABS: Anion Gap 14 mmol/L (10-20); BUN (Urea Nitrogen) 33 mg/dL (7.0-18.7); Calc. Creatinine Clearance 56 mL/min (70-130); Calcium 7.8 mg/dL (7.8-10.44); Carbon Dioxide 20 mmol/L (22-29); Chloride 105 mmol/L (98-107); Estimated GFR-MDRD 24; Glucose 231 mg/dL (70-105); Potassium 4.7 mmol/L (3.5-5.1); Sodium 134 mmol/L (136-145)
--- NOTE | 2017-09-28 09:35 | OP ---
DATE OF PROCEDURE: 09/27/2017 PREOPERATIVE DIAGNOSES: Bacteremia Citrobacter thought to be colonization of her Villalba catheter 2 of 2 sets positive, requests to remove the Villalba catheter. Right IJ placed for foot problems. PROCEDURE: Removal of right IJ cuffed tunnel Villalba catheter, 1% Xylocaine with epinephrine, 30 mL. Note, patient had pain during the procedure despite more than adequate local anesthetic infiltration and more anesthetic infiltration performed to reduce her discomfort. Patient complained of pulling d iscomfort. Catheter and cuff removed intact. SURGEON: Devendra Amezcua M.D. PROCEDURE IN DETAIL: At the patient's bedside, her catheter exit site, sutures were removed. Area w as prepared with alcohol. Local anesthetic infiltrated into the skin and subcutaneous tissue. Melania ter and cuff dissected free with some difficulty and re-infiltration of local anesthetic performed to address the patient's pain complaints. The patient's catheter and cuff removed intact. Dressing ap plied. At this point, she did well. I will see her as needed this hospitalization. Note the Hickma n catheter placed due to chronic kidney disease to avoid PICC lines and midlines which should be avoi ded due to the her possible need for dialysis access in the future.
[2017-09-28 10:09] LABS: #Eosinphils 0.1 thou/uL (0.0-0.7); #Lymphocytes 1.5 thou/uL (1.20-3.40); #Monocytes 0.3 thou/uL (0.11-0.59); #Neutrophils 4.7 thou/uL (1.40-6.50); %Basophils 0.4 % (0.0-1.0); %Eosinophils 1.8 % (0.0-10.0); %Lymphocytes 22.5 % (21.0-51.0); %Monocytes 4.7 % (0.0-10.0); %Neutrophils 70.7 % (42.0-75.0); Hemoglobin 9.2 g/dL (12.0-16.0); Mean Corpuscular HGB CONC 34.2 g/dL (32.0-36.0); Mean Corpuscular Hemoglobin 31.6 pg (27.0-31.0); Mean Corpuscular Volume 92.4 fl (81.0-99.0); Mean Platelet Volume 9.8 fL (7.4-10.4); Platelet Count 96 thou/uL (130-400); White Blood Cell (WBC) Count 6.6 thou/uL (4.8-10.8)
[2017-09-28] MEDS: Cyclobenzaprine 10 MG TAB PO PRN ×2 (11:39→19:59)
[2017-09-28] MEDS: HYDROcodone/Acetaminophen 10/325 mg Tablet PO PRN ×2 (11:42→22:23)
--- NOTE | 2017-09-28 12:30 | PDOC.PN ---
- Subjective Encounter Start Date: 09/28/17 Encounter Start Time: 08:30 Patient seen and examined. No new complaints. No overnight events yesterday hickmen catheter removed bedside - Objective Resuscitation Status: Resuscitation Status FULL:Full Resuscitation MAR Reviewed: Yes Vital Signs & Weight: Vital Signs (12 hours) Temp Pulse Resp BP Pulse Ox 09/28/17 11:00 98.8 F 76 14 133/81 90 L 09/28/17 09:08 79 09/28/17 07:42 98.8 F 79 16 115/66 91 L 09/28/17 07:13 98.6 F 75 20 09/28/17 06:52 98.6 F 75 20 103/64 93 L Weight Admit Weight 240 lb Weight 240 lb I&O: 09/27/17 09/28/17 09/29/17 06:59 06:59 06:59 Intake Total 3418 1400 Output Total 1100 Balance 2318 1400 Result Diagrams: 09/28/17 08:44 09/28/17 08:44 Additional Labs: Accuchecks 09/28/17 09/28/17 09/27/17 11:13 05:04 20:26 POC Glucose 234 H 233 H 222 H 09/27/17 16:35 POC Glucose 153 H Phys Exam - Physical Examination Constitutional: NAD HEENT: PERRLA, moist MMs, sclera anicteric Neck: no JVD, supple Respiratory: no wheezing, no rales, no rhonchi Cardiovascular: RRR, no significant murmur, no rub Gastrointestinal: soft, non-tender, no distention, positive bowel sounds Musculoskeletal: no edema, pulses present Neurological: non-focal, moves all 4 limbs Lymphatic: no nodes Psychiatric: normal affect, A&O x 3 Skin: no rash, normal turgor Dx/Plan (1) Acute worsening of stage 3 chronic kidney disease Code(s): N18.3 - CHRONIC KIDNEY DISEASE, STAGE 3 (MODERATE) Status: Acute (2) Bacteremia associated with intravascular line Code(s): T82.7XXA - INFECT/INFLM REACT D/T OTH CARDI/VASC DEV/IMPLNT/GRFT, INIT ; R78.81 - BACTEREMIA Status: Acute Comment: citrobactor (3) Bloodstream infection due to Villalba catheter Code(s): T80.211A - BLOODSTREAM INFECTION DUE TO CENTRAL VENOUS CATHETER, INIT Status: Acute Comment: hickmen catheter infection (4) Sepsis with acute organ dysfunction Code(s): A41.9 - SEPSIS, UNSPECIFIED ORGANISM; R65.20 - SEVERE SEPSIS WITHOUT SEPTIC SHOCK Status: Acute (5) Thrombocytopenia Code(s): D69.6 - THROMBOCYTOPENIA, UNSPECIFIED Status: Acute Comment: due to sepsis (6) Anemia, normocytic normochromic Code(s): D64.9 - ANEMIA, UNSPECIFIED Status: Chronic (7) Anxiety and depression Code(s): F41.9 - ANXIETY DISORDER, UNSPECIFIED; F32.9 - MAJOR DEPRESSIVE DISORDER, SINGLE EPISODE, UNSPECIFIED Status: Chronic (8) CAD (coronary artery disease) Code(s): I25.10 - ATHSCL HEART DISEASE OF [place] CORONARY ARTERY W/O ANG PCTRS Status: Chronic Qualifiers: (9) CKD (chronic kidney disease) stage 3, GFR 30-59 ml/min Status: Chronic (10) DM type 2 (diabetes mellitus, type 2) Status: Chronic Qualifiers: Comment: (11) HTN (hypertension) Code(s): I10 - ESSENTIAL (PRIMARY) HYPERTENSION Status: Chronic Qualifiers: Comment: (12) Lumbar disc disease with radiculopathy Code(s): M51.16 - INTERVERTEBRAL DISC DISORDERS W RADICULOPATHY, LUMBAR REGION Status: Chronic (13) Obesity Code(s): E66.9 - OBESITY, UNSPECIFIED Status: Chronic - Plan cont current plan of care, continue antibiotics * hickmen catheter removed * will repeat blood culture * enterobactor in blood culture, final mode of antibiotics and selection will defer to ID * medication reviewed as below * symptomatic treatment * repeat labs tomorrow * pain controlled. Review of Systems - Review of Systems Constitutional: negative: fever, chills, sweats, weakness, malaise, other ENT: negative: Ear Pain, Ear Discharge, Nose Pain, Nose Discharge, Nose Congestion, Mouth Pain, Mouth Swelling, Throat Pain, Throat Swelling, Other Respiratory: negative: Cough, Dry, Shortness of Breath, Hemoptysis, SOB with Excertion, Pleuritic Pain, Sputum, Wheezing Cardiovascular: negative: chest pain, palpitations, orthopnea, paroxysmal nocturnal dyspnea, edema, light headedness, other Gastrointestinal: negative: Nausea, Vomiting, Abdominal Pain, Diarrhea, Constipation, Melena, Hematochezia, Other Genitourinary: negative: Dysuria, Frequency, Incontinence, Hematuria, Retention , Other Musculoskeletal: Back Pain. negative: Neck Pain, Shoulder Pain, Arm Pain, Hand Pain, Leg Pain, Foot Pain, Other Skin: negative: Rash, Lesions, Raul, Bruising, Other Neurological: negative: Weakness, Numbness, Incoordination, Change in Speech, Confusion, Seizures, Other - Medications/Allergies Allergies/Adverse Reactions: Allergies Allergy/AdvReac Type Severity Reaction Status Date / Time lisinopril Allergy Anaphylaxis Verified 09/04/17 22:10 Medications: Current Medications Acetaminophen (Tylenol) 650 mg PO Q4H PRN PRN Reason: Headache/Fever or Pain Last Admin: 09/27/17 16:32 Dose: 650 mg Hydrocodone Bitart/Acetaminophen ([place] 10/325) 1 tab PO Q4H PRN PRN Reason: Moderate Pain (4-6) Last Admin: 09/28/17 11:42 Dose: 1 tab Al Hydroxide/Mg Hydroxide (Maalox) 30 ml PO Q6H PRN PRN Reason: Heartburn or Indigestion Amlodipine Besylate (Norvasc) 10 mg PO DAILY [facility] Last Admin: 09/28/17 09:08 Dose: 10 mg Artificial Tears (Tears Naturale) 0 drop EA EYE PRN PRN PRN Reason: Dry Eyes Atorvastatin Calcium (Lipitor) 40 mg PO HS [facility] Last Admin: 09/27/17 20:50 Dose: 40 mg Carvedilol (Coreg) 25 mg PO BID-[facility] Last Admin: 09/28/17 09:08 Dose: 25 mg Cyclobenzaprine HCl (Flexeril) 10 mg PO TIDPRN PRN PRN Reason: Muscle Spasm Last Admin: 09/28/17 11:39 Dose: 10 mg Dextrose/Water (Dextrose 50%) 25 gm SLOW IVP PRN PRN PRN Reason: Hypoglycemia Enoxaparin Sodium (Lovenox) 30 mg SC 0900 [facility] Last Admin: 09/28/17 09:05 Dose: Not Given Famotidine (Pepcid) 20 mg PO DAILY [facility] Last Admin: 09/28/17 09:06 Dose: Not Given Gabapentin (Neurontin) 300 mg PO TID [facility] Last Admin: 09/28/17 09:03 Dose: 300 mg Glucagon (Glucagon) 1 mg IM PRN PRN PRN Reason: Hypoglycemia Guaifenesin (Robitussin Sf) 200 mg PO Q4H PRN PRN Reason: Cough Hydralazine HCl (Apresoline) 10 mg SLOW IVP Q4H PRN PRN Reason: Systolic BP > 180 Hydrochlorothiazide (Hydrochlorothiazide) 12.5 mg PO DAILY [facility] Last Admin: 09/28/17 09:04 Dose: 12.5 mg Dextrose/Water (D5w) 1,000 mls @ 0 mls/hr IV .Q0M PRN; As Directed PRN Reason: Hypoglycemia Insulin Detemir 80 units/ (Miscellaneous Medication) 0.8 mls @ 0 mls/hr SC HS [facility] Last Admin: 09/27/17 20:51 Dose: 0.8 mls Insulin Detemir 80 units/ (Miscellaneous Medication) 0.8 mls @ 0 mls/hr SC QAM [facility] Last Admin: 09/28/17 09:06 Dose: 0.8 mls Piperacillin Sod/Tazobactam (Sod 3.375 gm/ Sodium Chloride) 100 mls @ 200 mls/ hr IVPB Q6HR [facility] Last Admin: 09/28/17 11:45 Dose: 100 mls Sodium Chloride (Normal Saline 0.9%) 1,000 mls @ 75 mls/hr IV .[id number] [facility] Last Admin: 09/28/17 09:07 Dose: 1,000 mls Insulin Human Lispro (Humalog) 0 units SC .AGGRESSIVE SLIDING PRN PRN Reason: Aggressive Correctional Scale Last Admin: 09/28/17 11:46 Dose: 6 unit Insulin Human Regular (Humulin R) 0 units SC .BEDTIME SLIDING SC PRN PRN Reason: Bedtime Correctional Scale Loperamide HCl (Imodium) 2 mg PO PRN PRN PRN Reason: Diarrhea/Loose Stools Loratadine (Claritin) 10 mg PO DAILYPRN PRN PRN Reason: Sinus Symptoms Losartan Potassium (Cozaar) 25 mg PO DAILY [facility] Last Admin: 09/28/17 09:06 Dose: 25 mg Magnesium Hydroxide (Milk Of Magnesium) 30 ml PO DAILYPRN PRN PRN Reason: Constipation Metformin HCl (Glucophage) 1,000 mg PO BID-[facility] Last Admin: 09/28/17 09:02 Dose: 1,000 mg Mineral Oil/White Petrolatum (Eucerin Cream) 0 gm TOP BIDPRN PRN PRN Reason: Dry Skin Morphine Sulfate (Morphine) 4 mg SLOW IVP Q4H PRN PRN Reason: Severe Pain (7-10) Last Admin: 09/28/17 08:59 Dose: 4 mg Ondansetron HCl (Zofran Odt) 4 mg PO Q6H PRN PRN Reason: Nausea/Vomiting Ondansetron HCl (Zofran) 4 mg IVP Q6H PRN PRN Reason: Nausea/Vomiting Last Admin: 09/28/17 00:28 Dose: 4 mg Phenol (Chloraseptic [place] 180 Ml Bot) 0 ml PO PRN PRN PRN Reason: Sore Throat Saccharomyces Boulardii (Florastor) 250 mg PO DAILY [facility] Last Admin: 09/28/17 09:08 Dose: 250 mg Senna (Senokot) 2 tab PO HSPRN PRN PRN Reason: Constipation Sodium Chloride (Flush - Normal Saline) 10 ml IVF Q12HR [facility] Last Admin: 09/28/17 09:06 Dose: Not Given Sodium Chloride (Flush - Normal Saline) 10 ml IVF PRN PRN PRN Reason: Saline Flush Sodium Chloride ([place] Nasal [place] 0.65%) 0 ml EA NARE QIDPRN PRN PRN Reason: Nasal Congestion Tramadol HCl (Ultram) 50 mg PO Q4H PRN PRN Reason: Moderate Pain (4-6) Zolpidem Tartrate (Ambien) 5 mg PO HSPRN PRN PRN Reason: Insomnia
--- NOTE | 2017-09-28 13:34 | PRG ---
DATE OF SERVICE: 09/28/2017 SUBJECTIVE: Ms. Goldman is having that neuropathic radiculopathic pain radiating down her left lower extremity, but other than that, she had the catheter removed from the subclavian location. No respir atory symptoms or abdominal pain, no diarrhea. OBJECTIVE: VITAL SIGNS: T-max 98.8, blood pressure 130/80, pulse 76, respirations 14, O2 sat 92%. HEENT: The patient has the area of the subclavian region with a very small ulcerated region with jose a sh granulation tissue, no erythema noted. LUNGS: Clear. HEART: S1, S2, regular rate. ABDOMEN: Soft. EXTREMITIES: The right foot with fifth MPJ skin site with deep tissue injury, little bit of bruising there noted. LABORATORY DATA: White cell count 6.6, hemoglobin 9.2, platelets 96,000. Sodium 134, creatinine 2.2 5. Microbiology with Enterobacter species with broad susceptibility profile. ASSESSMENT AND DISCUSSION: Diabetes type 2 with neuropathy and complications in right foot treated t o completion now. No evidence of residual infection. She does have deep tissue injury from poor cole twear and needs to have a proper orthotic shoes made for her when she gets out of the hospital. The patient has developed bacteremia from colonization of the Villalba catheter by Enterobacter species an d can be discharged on oral levofloxacin or ciprofloxacin with dose adjusted for renal function for 2 weeks.
[2017-09-28] MEDS: Cipro 250 MG TAB PO SCH (19:55)
[2017-09-28] MEDS: Atorvastatin Calcium 40 MG TAB PO SCH (19:55)
[2017-09-29] MEDS: Cyclobenzaprine 10 MG TAB PO PRN (04:23)
[2017-09-29 04:54] LABS: #Eosinphils 0.1 thou/uL (0.0-0.7); #Lymphocytes 1.6 thou/uL (1.20-3.40); #Monocytes 0.3 thou/uL (0.11-0.59); #Neutrophils 3.4 thou/uL (1.40-6.50); %Basophils 0.3 % (0.0-1.0); %Eosinophils 1.6 % (0.0-10.0); %Lymphocytes 29.1 % (21.0-51.0); %Monocytes 5.8 % (0.0-10.0); %Neutrophils 63.2 % (42.0-75.0); Hemoglobin 8.9 g/dL (12.0-16.0); Mean Corpuscular HGB CONC 33.9 g/dL (32.0-36.0); Mean Corpuscular Hemoglobin 31.6 pg (27.0-31.0); Mean Corpuscular Volume 93.1 fl (81.0-99.0); Mean Platelet Volume 10.2 fL (7.4-10.4); Platelet Count 103 thou/uL (130-400); Red Blood Cell (RBC) Count 2.81 mill/uL (4.20-5.40); White Blood Cell (WBC) Count 5.4 thou/uL (4.8-10.8)
[2017-09-29 05:15] LABS: Anion Gap 11 mmol/L (10-20); BUN (Urea Nitrogen) 28 mg/dL (7.0-18.7); Calc. Creatinine Clearance 62 mL/min (70-130); Calcium 8.1 mg/dL (7.8-10.44); Carbon Dioxide 21 mmol/L (22-29); Chloride 106 mmol/L (98-107); Estimated GFR-MDRD 27; Glucose 272 mg/dL (70-105); Potassium 5.1 mmol/L (3.5-5.1); Sodium 133 mmol/L (136-145)
[2017-09-29] MEDS: Cipro 250 MG TAB PO SCH (05:17)
[2017-09-29] MEDS: HumaLOG 300 UNITS/3 ML VIAL SC PRN (05:18)
[2017-09-29] MEDS: Carvedilol 25 MG TAB PO SCH (08:18)
[2017-09-29] MEDS: metFORMIN 500 MG TAB PO SCH (08:18)
[2017-09-29] MEDS: Amlodipine 10 MG TAB PO SCH (08:18)
[2017-09-29] MEDS: Losartan 25 MG TAB PO SCH (08:18)
[2017-09-29] MEDS: Hydrochlorothiazide 25 MG TAB PO SCH (08:18)
[2017-09-29] MEDS: Famotidine 20 MG TAB PO SCH (08:19)
[2017-09-29] MEDS: Gabapentin 300 MG CAP PO SCH (08:19)
[2017-09-29] MEDS: Saccharomyces boulardii 250 MG CAP PO SCH (08:19)
[2017-09-29] MEDS: Enoxaparin Sodium 30 MG/0.3 ML SYRINGE SC SCH (08:20)
[2017-09-29] MEDS: INSULIN DETEMIR SC SCH (08:22)
[2017-09-29] MEDS: ADMIXTURE FEE SC SCH (08:22)
[2017-09-29] MEDS: HYDROcodone/Acetaminophen 10/325 mg Tablet PO PRN (09:21)
--- NOTE | 2017-09-29 11:38 | PDOC.PN ---
- Subjective Encounter Start Date: 09/29/17 Encounter Start Time: 11:36 Ms. Goldman was seen today in follow-up of Citrobacter bacteremia. She complains of a mild headache, and some soreness where the Villlaba catheter was removed, otherwise ok. - Objective Resuscitation Status: Resuscitation Status FULL:Full Resuscitation MAR Reviewed: Yes Vital Signs & Weight: Vital Signs (12 hours) Temp Pulse Resp BP BP Pulse Ox 09/29/17 08:18 82 115/70 09/29/17 08:00 98.9 F 82 18 154/84 H 18 L Weight Admit Weight 240 lb Weight 240 lb I&O: 09/28/17 09/29/17 09/30/17 06:59 06:59 06:59 Intake Total 1400 800 180 Balance 1400 800 180 Result Diagrams: 09/29/17 04:04 09/29/17 04:04 Additional Labs: Accuchecks 09/29/17 09/28/17 09/28/17 05:20 19:53 16:07 POC Glucose 245 H 120 H 155 H 09/28/17 11:13 POC Glucose 234 H Phys Exam - Physical Examination HEENT: PERRLA Respiratory: no wheezing, no rales, no rhonchi, clear to auscultation bilateral Cardiovascular: RRR, no significant murmur Gastrointestinal: soft, non-tender, positive bowel sounds Musculoskeletal: no edema Dx/Plan (1) Citrobacter infection Code(s): A49.8 - OTHER BACTERIAL INFECTIONS OF UNSPECIFIED SITE Status: Acute (2) Bloodstream infection due to Villalba catheter Code(s): T80.211A - BLOODSTREAM INFECTION DUE TO CENTRAL VENOUS CATHETER, INIT Status: Acute Comment: hickmen catheter infection (3) CKD (chronic kidney disease) stage 3, GFR 30-59 ml/min Status: Chronic (4) DM type 2 (diabetes mellitus, type 2) Status: Chronic Qualifiers: Comment: (5) HTN (hypertension) Code(s): I10 - ESSENTIAL (PRIMARY) HYPERTENSION Status: Chronic Qualifiers: Comment: - Plan * Citrobacter bacteremia- She has been transitioned to oral Cipro * DM- blood glucose is stable * Stable for discharge home.
[2017-09-29 12:01] VITALS: BP 143/88; TEMP 97.9
--- NOTE | 2017-09-29 12:21 | DIS ---
DATE OF ADMISSION: 09/26/2017 DATE OF DISCHARGE: 09/29/2017 PRIMARY CARE PHYSICIAN: Dr. King. DISCHARGE DISPOSITION: Home. PRIMARY DISCHARGE DIAGNOSES: 1. Citrobacter bacteremia. 2. Diabetes mellitus, type 2. 3. Chronic kidney disease stage 5. 4. Chronic right foot diabetic ulcer. 5. Restless legs syndrome. 6. Chronic low back pain secondary to lumbar disk disease. DISCHARGE MEDICATIONS: Include ciprofloxacin 250 mg twice a day for 2 weeks. She is to continue Jack rastor 250 mg daily, metformin 1000 mg twice daily, Cozaar 25 mg daily, Levemir FlexPen 80 units twic e a day, hydrochlorothiazide 25 mg daily, Humalog as directed, gabapentin 300 mg t.i.d., Diflucan 1 t ablet, Nexium 20 mg daily, Flexeril 10 mg t.i.d. as needed, carvedilol 25 mg twice a day, Lipitor 40 mg at bedtime, amlodipine 10 mg daily, Tylenol #3 q.6 as needed for pain. PROCEDURES DONE DURING ADMISSION: The patient had the removal of Villalba catheter. CODE STATUS: FULL CODE. ALLERGIES: LISINOPRIL. HOSPITAL COURSE: Ms. Goldman is a pleasant 41-year-old female that presented to the emergency room wi th fever and chills. She had a temperature as high as 103 in the emergency room. She was ultimately found to have Citrobacter bacteremia. She was seen by Dr. Russell and he recommended that she take ci profloxacin or other oral quinolone for a minimum of 2 weeks and the Villalba catheter was removed. T he patient had an uneventful hospital course and was subsequently discharged home on 09/29/2017 and t o have close outpatient followup.
== END 2017-09-29 13:28 | disposition home or self-care (01) | DRG 314 ==
LOC: ERS 17:06 → 2NO 09-26 01:27 → T4-A 09-27 10:17
PROVIDERS: ADMIT Internal Medicine; ATTEND Internal Medicine
PROC: 0JPT3XZ Removal of Tunneled Vascular Access Device from Trunk Subcutaneous Tissue and Fascia, Percutaneous Approach (ICD-10-PCS; principal; 2017-09-27)
PROC: 02PY33Z Removal of Infusion Device from Great Vessel, Percutaneous Approach (ICD-10-PCS; 2017-09-27)
DX: E11.621 Type 2 diabetes mellitus with foot ulcer; I12.9 Hypertensive chronic kidney disease with stage 1 through stage 4 chronic kidney disease, or unspecified chronic kidney disease; E11.22 Type 2 diabetes mellitus with diabetic chronic kidney disease; D64.9 Anemia, unspecified; Z87.891 Personal history of nicotine dependence; Z68.33 Body mass index [BMI] 33.0-33.9, adult; F32.9 Major depressive disorder, single episode, unspecified; T80.211A Bloodstream infection due to central venous catheter, initial encounter; E87.2 Acidosis; E11.40 Type 2 diabetes mellitus with diabetic neuropathy, unspecified; K21.9 Gastro-esophageal reflux disease without esophagitis; L97.519 Non-pressure chronic ulcer of other part of right foot with unspecified severity; G25.81 Restless legs syndrome; Z22.39 Carrier of other specified bacterial diseases; D69.6 Thrombocytopenia, unspecified; S90.31XA Contusion of right foot, initial encounter; M51.16 Intervertebral disc disorders with radiculopathy, lumbar region; N18.3 Chronic kidney disease, stage 3 (moderate); I25.10 Atherosclerotic heart disease of native coronary artery without angina pectoris; A41.50 Gram-negative sepsis, unspecified; E66.01 Morbid (severe) obesity due to excess calories; F41.9 Anxiety disorder, unspecified
CPT/HCPCS: 36415; 36416; 80048; 80053; 80306; 81003; 81015; 83605; 85025; 85652; 86140; 87040; 87077; 87086; 87149; 87186; 87804; 96361; 96365; 96372; 96375; J2270; A4216; G8978-GP-CJ; G8979-GP-CI; J1650; J1815; J1885; J2001; J2405; J2543; J3370; J7050; Q0162

== ENCOUNTER 2017-10-08 10:37 | Outpatient (CLI) | payer OTHER ==
--- NOTE | 2017-10-08 12:55 | RAD ---
LUMBAR SPINE 4 VIEWS: HISTORY: Lumbar radiculopathy. Low back pain. Previous fall. COMPARISON: 07/16/07. FINDINGS: AP, lateral neutral, lateral flexion, and lateral extension of lumbar spine demonstrate 5 lumbar-type vertebral bodies. Vertebral body height is maintained. There is no fracture. In the neutral posit ion, there is severe degenerative change at L5-S1. No evidence of spondylolisthesis or spondylysis. No abnormal motion upon extension or flexion. IMPRESSION: Severe degenerative disease at L5-S1. POS: SHANTANU
== END 2017-10-08 10:38 | disposition home or self-care (01) ==
LOC: TBSIIMAG 10:37
PROVIDERS: ATTEND Surgery
DX: M51.26 Other intervertebral disc displacement, lumbar region (principal); M47.897 Other spondylosis, lumbosacral region
CPT/HCPCS: 72100

== ENCOUNTER 2017-10-29 13:14 | Outpatient (CLI) | payer OTHER ==
[2017-10-29 14:45] LABS: Hemoglobin 12.2 g/dL (12.0-16.0); Mean Corpuscular HGB CONC 35.6 g/dL (32.0-36.0); Mean Corpuscular Hemoglobin 31.1 pg (27.0-31.0); Mean Corpuscular Volume 87.3 fl (81.0-99.0); Mean Platelet Volume 8.2 fL (7.4-10.4); Platelet Count 226 thou/uL (130-400); RBC Distribution Width 11.7 % (11.5-14.5); Red Blood Cell (RBC) Count 3.92 mill/uL (4.20-5.40); White Blood Cell (WBC) Count 12.1 thou/uL (4.8-10.8)
[2017-10-29 14:51] LABS: BHCG - Serum Negative (NEGATIVE); Pregs Control Background? CLEAR/WHITE (CLR/WHITE); Pregs Control Bar Appear? YES (CONTROL BAR)
[2017-10-29 14:52] LABS: PTT 31.2 SEC (22.9-36.1)
[2017-10-29 14:55] LABS: Amphetamine Not Detected (NotDetected); Barbiturates Screen Not Detected (NotDetected); Benzodiazepine Screen Not Detected (NotDetected); Cocaine Metabolite Screen Not Detected (NotDetected); Medtox Control Line Valid? VALID (VALID); Medtox Reader # READER 4; Methadone Not Detected (NotDetected); Methamphetamine Not Detected (NotDetected); Opiate Screen Not Detected (NotDetected); Oxycodone Screen Not Detected (NotDetected); Phencyclidine (PCP) Not Detected (NotDetected); THC/Cannabinoid Screen Not Detected (NotDetected); Tricyclic Screen Not Detected (NotDetected)
[2017-10-29 15:17] LABS: Anion Gap 15 mmol/L (10-20); BUN (Urea Nitrogen) 21 mg/dL (7.0-18.7); Calc. Creatinine Clearance 0 mL/min (70-130); Calcium 9.1 mg/dL (7.8-10.44); Carbon Dioxide 21 mmol/L (22-29); Chloride 101 mmol/L (98-107); Estimated GFR-MDRD 28; Glucose 231 mg/dL (70-105); Potassium 4.7 mmol/L (3.5-5.1); Sodium 132 mmol/L (136-145)
--- NOTE | 2017-10-30 07:28 | EKG ---
Test Reason : Blood Pressure : / mmHG Vent. Rate : 069 BPM Atrial Rate : 069 BPM P-R Int : 148 ms QRS Dur : 092 ms QT Int : 424 ms P-R-T Axes : 044 -15 -02 degrees QTc Int : 454 ms Normal sinus rhythm Inferior infarct (cited on or before 06-MAR-2016) Possible Anterior infarct , age undetermined (PARWP) Abnormal ECG When compared with ECG of 23-JUL-2017 11:17, No significant change was found Confirmed by DR. Alber HUITRON ([id number]) on 10/30/2017 7:27:53 AM Referred By: DONOVAN Confirmed By:DR. Alber HUITRON
== END 2017-10-29 13:15 | disposition home or self-care (01) ==
LOC: LABBT 13:14
PROVIDERS: ATTEND Surgery
DX: Z01.818 Encounter for other preprocedural examination (principal); M51.16 Intervertebral disc disorders with radiculopathy, lumbar region; R94.31 Abnormal electrocardiogram [ECG] [EKG]
CPT/HCPCS: 80048; 80306; 84703; 85027; 85610; 85730; 93005; 93010

== ENCOUNTER 2018-01-06 01:55 | Inpatient (IN) | payer OTHER ==
[2018-01-06] MEDS ORDERED: Dextrose 50% Abboject 50 ML SYRINGE SLOW IVP PRN ×2 (03:18→05:27)
[2018-01-06] MEDS ORDERED: Dextrose 5% in Water 1,000 ML IV PRN ×2 (03:18→05:27)
[2018-01-06] MEDS ORDERED: Insulin Regular 300 UNITS/3 ML VIAL SC PRN (03:18)
[2018-01-06] MEDS ORDERED: VANCOMYCIN IVPB PRN (03:22)
[2018-01-06] MEDS ORDERED: Vancomycin HCl 1 GM in Premix Bag 1 BAG IVPB SCH (04:00)
[2018-01-06 04:21] VITALS: BMI 30.9
[2018-01-06] MEDS ORDERED: traMADol HCl 50 MG TAB PO PRN ×2 (05:00→05:16)
[2018-01-06] MEDS ORDERED: tiZANidine HCl 4 MG TAB PO PRN (05:16)
[2018-01-06] MEDS: Insulin Regular 300 UNITS/3 ML VIAL SC PRN ×3 (05:47→17:19)
[2018-01-06] MEDS: Piperacillin/Tazobactam 3.375 GM in Sodium Chloride 0.9% 100 ML IVPB SCH ×3 (05:48→17:53)
[2018-01-06] MEDS ORDERED: Piperacillin/Tazobactam 3.375 GM in Sodium Chloride 0.9% 100 ML IVPB SCH (06:00)
--- NOTE | 2018-01-06 07:47 | HP ---
TIME OF EVALUATION: 3:00 a.m. CODE STATUS: FULL CODE. PRIMARY CARE PHYSICIAN: Dr. King. CHIEF COMPLAINT: Right nonhealing foot ulcer. HISTORY OF PRESENT ILLNESS: A 42-year-old female with a past medical history of CHF, diabetes, transferred from [place] due to a nonhealing right foot ulcer, the patient reported that for the past 2 weeks, she has an ulcer that started with a small blister that has been getting worse, has been tender in the right plantar area. She has reported that also she did not have regular insulin in the past few days except for Levemir. Her medication bottle fell on to the floor, got broke, thereforemnon compliant with meds she reported she was unable to buy it. Symptoms were reported as severe, triggered by uncontrolled diabetes and diabetic neuropathy, alleviating factors. As noted, the patient has had previous history of nonhealing ulcer, has been treated by Dr. Russell, that will consult for assistance with treatment. REVIEW OF SYSTEMS: Constitutional: No fever or chills. Generalized weakness. Respiratory: No cough, sputum production, shortness of breath. Cardiovascular: No chest pain, palpitation or shortness of breath. Gastrointestinal: No nausea, vomiting, diarrhea or abdominal pain. Central Nervous System: No dizziness, headache, or feeling lightheaded. Genitourinary : No burning on urination. Extremities: The patient has right plantar metatarsal area and she has a nonhealing ulcer of about 1 x 1 inches, distended , with drainage, redness. All other systems reviewed were negative except for the findings mentioned above. PAST MEDICAL HISTORY: Coronary artery disease, diabetes, GERD, hypertension, chronic back pain, osteomyelitis, restless leg syndrome, chronic kidney disease stage 3. PAST SURGICAL HISTORY: The patient had a history of x2, history of orthopedic surgery L5-S1 diskectomy. PAST SURGICAL HISTORY: Tonsillectomy, tubal ligation, angiocath for non-STEMI, March 09, 2016. PSYCHIATRIC HISTORY: Anxiety, depression. SOCIAL HISTORY: No alcohol. Former drug user, abuse cocaine, uses tobacco, smokes cigarettes. Lives at home with family. FAMILY HISTORY: Paternal history of diabetes type 2. Mother history of diabetes. ALLERGIES: LISINOPRIL. Also allergic to ANTIBIOTICS, does not remember the name. REPORTED MEDICATIONS: Carvedilol, amlodipine, hydralazine, Novolin, Nexium, metformin, Levemir, losartan. PHYSICAL EXAMINATION: VITAL SIGNS: On presentation, blood pressure 159/91, heart rate 63, temperature 98.6, pain 4, oxygen saturation 99 on room air. GENERAL APPEARANCE: The patient is alert, oriented, in no acute distress, obese. HEENT: Eyes: Normal conjunctivae. Moist oral mucosa. Anicteric. NECK: No JVD. RESPIRATORY: Bilateral air entry. No rales, no wheezing. Symmetric expansion. CARDIOVASCULAR: Normal rate, regular rhythm. No murmurs, no gallop. No edema. ABDOMEN: Soft, normal bowel sounds. MUSCULOSKELETAL: Baseline range of motion and strength. No tenderness. SKIN: Warm and intact. No pallor or rash. No redness except for the right plantar tarsal area where she had a nonhealing wound of about 1 x 1 inches with some drainage, redness. NEUROLOGIC: The patient has underlying diabetic polyneuropathy. No evidence of any new focal weakness. Baseline speech. Cranial nerves seemed to be intact. PSYCHIATRIC: Good mood. No anxiety. Oriented, optimal judgment. LABORATORY AND DIAGNOSTIC DATA: X-ray was reviewed and discussed with the ER physician report came from the outside facility prior to transfer. The x-ray showed no osteomyelitis. ESR was 38, glucose 172. Hematology: White count 11.4, hemoglobin 11.3, MCV 85, platelet count 216. Chemistry: Potassium 3.7, sodium 132, chloride 98, carbon dioxide 23, BUN 23, creatinine 1.99, on previous admission was about the same value, glucose 348. UA was done, it was positive with white count 4-6 in urine. ASSESSMENT AND PLAN: The patient will be placed in the hospital with following medical conditions. 1. Nonhealing diabetic ulcer on the right plantar area, wound care. 2. Antibiotics. We will call Dr. Russell for assistance with antibiotic management and the patient will need antibiotics for long-term. Final cultures , adjust treatment as needed. 3. Uncontrolled diabetes, hyperglycemia, reconciled meds, sliding scale for optimal control. 4. Uncontrolled hypertension, reconciled home meds. Adjust treatment as needed. 5. Deep venous thrombosis prophylaxis. 6. History of chronic kidney disease, seems to be stable, likely secondary to diabetes and hypertension, monitor kidney function, no need for any acute intervention at this point. [facility]
[2018-01-06] MEDS ORDERED: Carvedilol 25 MG TAB PO SCH (08:00)
[2018-01-06] MEDS: Losartan 25 MG TAB PO SCH (08:58)
[2018-01-06] MEDS: Gabapentin 300 MG CAP PO SCH ×3 (08:58→20:02)
[2018-01-06] MEDS: Hydrochlorothiazide 25 MG TAB PO SCH (08:59)
[2018-01-06] MEDS: Carvedilol 25 MG TAB PO SCH ×2 (08:59→17:18)
[2018-01-06] MEDS ORDERED: Insulin Glargine 80 UNITS in Pre-Filled Syringe 1 EACH SC SCH (09:00)
[2018-01-06] MEDS ORDERED: Losartan 25 MG TAB PO SCH (09:00)
[2018-01-06] MEDS ORDERED: INSULIN DETEMIR SC SCH (09:00)
[2018-01-06] MEDS ORDERED: Hydrochlorothiazide 25 MG TAB PO SCH (09:00)
[2018-01-06] MEDS ORDERED: Gabapentin 300 MG CAP PO SCH (09:00)
[2018-01-06] MEDS: Insulin Glargine 80 UNITS in Pre-Filled Syringe 1 EACH SC SCH ×2 (09:08→20:04)
[2018-01-06] MEDS: traMADol HCl 50 MG TAB PO PRN (12:14)
[2018-01-06] MEDS: oxyCODONE 5 MG TAB PO PRN ×3 (13:30→22:32)
--- NOTE | 2018-01-06 15:05 | PDOC.PN ---
- Subjective Encounter Start Date: 01/06/18 Encounter Start Time: 11:55 Subjective: pt up in bed complains of pain to her lower - Objective Vital Signs & Weight: Vital Signs (12 hours) Temp Pulse Resp BP Pulse Ox 01/06/18 11:46 98.3 F 66 18 172/99 H 95 01/06/18 07:31 97.9 F 57 L 18 198/109 H 94 L 01/06/18 03:50 97.8 F 68 18 166/83 H 98 01/06/18 03:45 97.8 F 68 18 98 Weight Weight 222 lb I&O: 01/05/18 01/06/18 01/07/18 06:59 06:59 06:59 Intake Total 660 Balance 660 Additional Labs: Accuchecks 01/06/18 01/06/18 01/06/18 11:51 05:33 03:00 POC Glucose 271 H 366 H 272 H Phys Exam - Physical Examination HEENT: PERRLA, moist MMs, sclera anicteric, TM's clear, oral pharynx no lesions , 2+ tonsils Neck: no nodes, no JVD, supple, full ROM Respiratory: no wheezing, no rales, no rhonchi, wheezing present, clear to auscultation bilateral Cardiovascular: RRR, no significant murmur, no rub, gallop, irregular Gastrointestinal: soft, non-tender, no distention, positive bowel sounds right foot ulcer mild erythema Dx/Plan (1) Diabetic foot infection Code(s): E11.628 - TYPE 2 DIABETES MELLITUS WITH OTHER SKIN COMPLICATIONS; L08.9 - LOCAL INFECTION OF THE SKIN AND SUBCUTANEOUS TISSUE, UNSP Status: Acute (2) Acute worsening of stage 3 chronic kidney disease Code(s): N18.3 - CHRONIC KIDNEY DISEASE, STAGE 3 (MODERATE) Status: Acute (3) Obesity Code(s): E66.9 - OBESITY, UNSPECIFIED Status: Chronic (4) DM type 2 (diabetes mellitus, type 2) Status: Chronic Qualifiers: Comment: (5) HTN (hypertension) Code(s): I10 - ESSENTIAL (PRIMARY) HYPERTENSION Status: Chronic Qualifiers: Comment: - Plan continue broad spectrum abx -: ID consulted -: second recurrence pt may need surgery? good pulses * . Review of Systems - Review of Systems ENT: negative: Ear Pain, Ear Discharge, Nose Pain, Nose Discharge, Nose Congestion, Mouth Pain, Mouth Swelling, Throat Pain, Throat Swelling, Other Respiratory: negative: Cough, Dry, Shortness of Breath, Hemoptysis, SOB with Excertion, Pleuritic Pain, Sputum, Wheezing Cardiovascular: negative: chest pain, palpitations, orthopnea, paroxysmal nocturnal dyspnea, edema, light headedness, other Gastrointestinal: negative: Nausea, Vomiting, Abdominal Pain, Diarrhea, Constipation, Melena, Hematochezia, Other - Medications/Allergies Allergies/Adverse Reactions: Allergies Allergy/AdvReac Type Severity Reaction Status Date / Time ciprofloxacin Allergy Verified 01/06/18 04:15 lisinopril Allergy Anaphylaxis Verified 01/06/18 04:15 Medications: Current Medications Atorvastatin Calcium (Lipitor) 20 mg PO [facility] Carvedilol (Coreg) 25 mg PO BID-[facility] Last Admin: 01/06/18 08:59 Dose: 25 mg Dextrose/Water (Dextrose 50%) 25 gm SLOW IVP PRN PRN PRN Reason: Hypoglycemia Gabapentin (Neurontin) 300 mg PO TID [facility] Last Admin: 01/06/18 14:36 Dose: 300 mg Glucagon (Glucagon) 1 mg IM PRN PRN PRN Reason: Hypoglycemia Hydrochlorothiazide (Hydrochlorothiazide) 12.5 mg PO DAILY [facility] Last Admin: 01/06/18 08:59 Dose: 12.5 mg Piperacillin Sod/Tazobactam (Sod 3.375 gm/ Sodium Chloride) 100 mls @ 200 mls/ hr IVPB Q6HR [facility] Last Admin: 01/06/18 12:01 Dose: 100 mls Dextrose/Water (D5w) 1,000 mls @ 0 mls/hr IV .Q0M PRN; As Directed PRN Reason: Hypoglycemia Insulin Glargine 80 units/ (Miscellaneous Medication) 0.8 mls @ 0 mls/hr SC BID [facility] Last Admin: 01/06/18 09:08 Dose: 0.8 mls Vancomycin HCl 1.5 gm/ Sodium (Chloride) 300 mls @ 200 mls/hr IVPB 0100 [facility] Insulin Human Regular (Humulin R) 0 units SC .MILD SLIDING SCALE PRN PRN Reason: Mild Correctional Scale Last Admin: 01/06/18 12:02 Dose: 4 unit Losartan Potassium (Cozaar) 50 mg PO DAILY [facility] Last Admin: 01/06/18 08:58 Dose: 50 mg Miscellaneous Medication (Pharmacy To Dose) 1 each IVPB PRN PRN PRN Reason: DIABETIC FOOT INFXN Oxycodone HCl (Oxycodone Ir) 10 mg PO Q4H PRN PRN Reason: Pain Last Admin: 01/06/18 13:30 Dose: 10 mg Pantoprazole Sodium (Protonix) 40 mg PO DAILY [facility] Last Admin: 01/06/18 08:58 Dose: 40 mg Sodium Chloride (Flush - Normal Saline) 10 ml IVF PRN PRN PRN Reason: Saline Flush Tizanidine HCl (Zanaflex) 4 mg PO Q8H PRN PRN Reason: MUSCLE Pain Tramadol HCl (Ultram) 50 mg PO Q6H PRN PRN Reason: Pain 4-6
[2018-01-06] MEDS: hydrALAZINE 20 MG/ML VIAL SLOW IVP PRN (17:52)
[2018-01-06] MEDS: tiZANidine HCl 4 MG TAB PO PRN (20:07)
[2018-01-06] MEDS ORDERED: Atorvastatin Calcium 20 MG TAB PO SCH (21:00)
[2018-01-07] MEDS: Vancomycin HCl 1.5 GM in Sodium Chloride 0.9% 250 ML 300 ML IVPB SCH (01:09)
--- NOTE | 2018-01-07 01:39 | CON ---
DATE OF CONSULTATION: 01/06/2018 REASON FOR CONSULTATION: Inflammatory process, right foot. HISTORY OF PRESENT ILLNESS: A 42-year-old patient, known to me from prior visits who has a history of type 2 diabetes, hypertension, neuropathy and coronary artery disease, whom I have examined in the past for right foot inflammatory process. She had been previously diagnosed with osteomyelitis of the right first MPJ and distal digit. She had completed IV antimicrobial therapy through Villalba catheter and she presented on 09/26/2017 with chills and fever and she had some back pain, upper respiratory symptoms. The impression then was likely Villalba catheter colonization by gram negative rods, which were finally identified as Enterobacter. The organism was susceptible to quinolones, the right foot inflammatory process had resolved. There was no evidence of recrudescence though the wound was very superficial. The Villalba was removed and patient was discharged on oral quinolone. At this time, she was readmitted with worsening inflammatory process, right first MPJ associated with worsening ulceration with drainage. The ulcer has been present there for the past 2 weeks, which started with a small blister. She denies any headaches , no visual symptoms, sore throat, cough, or dysphagia. No dyspnea or cough, chest pain, no abdominal pain or diarrhea. No genitourinary symptoms outside the area of involvement. PAST MEDICAL HISTORY: Type 2 diabetes neuropathy, debridement right first toe, protracted antimicrobial therapy for osteomyelitis, renal insufficiency stage 3 , Villalba catheter placement with resolution of inflammatory process and healing of the areas, Villalba catheter colonization by Enterobacter, which was treated with oral quinolone and the removal of the device, chronic low back pain , prior diskectomy of L5-S1, and tonsillectomy. ALLERGIES: LISINOPRIL. CURRENT MEDICATIONS: Lipitor, Coreg, dextrose, Neurontin, Apresoline, hydrochlorothiazide, insulin, losartan, oxycodone, Protonix, Zosyn, vancomycin. FAMILY HISTORY: Noncontributory. SOCIAL HISTORY: A former drug user with cocaine, but never injected drugs intravenously. Current smoker. No alcoholic beverage use. PHYSICAL EXAMINATION: VITAL SIGNS: T-max 97.9-98.3, blood pressure 190/90, pulse 61, respirations 18 , O2 sat 97%. SKIN: Remarkable for the right first MPJ ulcerated area measuring about 1 cm in diameter x 0.4 cm in depth. There is some undermining when the area was probed with a Q-tip, but I could not penetrate towards the joint or the bone. Some serosanguineous drainage from the area of callus surrounding this ulceration measuring about 0.4 cm and around this whole area of erythema and swelling of the MPJ, both ventral as well as dorsal aspects. No other skin lesions. Patient has a peripheral IV access. No Sutherland catheter. No lymphadenopathy. HEENT: Ocular movements conjugate. Oral cavity normal. NECK: Supple, no jugular vein distention. LUNGS: With symmetric clear breath sounds. HEART: S1, S2, regular rate. No S3, S4. ABDOMEN: Soft, nondistended or tender. No ascites. No bladder distention. EXTREMITIES: No other joint inflammatory process. Pulses are dorsalis pedis 1 + popliteals 1+. Cap refill normal. NEUROLOGIC: Cognitive function normal. LABORATORY DATA: White cell count 11.4, hemoglobin 11, platelets 260, 69% neutrophils, 15% bands. Chemistry with a creatinine of 1.99, which is close to her baseline. Two sets of blood cultures are pending at this time. A foot ulcer culture pending as well, moderate gram positive cocci in pairs and gram positive rods seen on the Gram stain from the area. The plain films did not show any evidence of osteomyelitis. ASSESSMENT AND DISCUSSION: Type 2 diabetes, previous complications related to neuropathy in the right foot, treated with iv antimicrobial tx, now recrudescence of the ulceration with inflammatory process. We will order an MRI with contrast and decide on what management course will be based on that results. May need again repeat course of treatment with protracted antimicrobial therapy. The main difficulty here is with offloading patient, does not seem to have procured proper footwear to prevent this type of development. She is quite active at home and ambulatory and I believe the original process had resolved and now she has a de patrick process. At this time appears to be more severe than previous one. We will continue monitoring blood cultures to verify that she was not bacteremic. MARIANA
[2018-01-07] MEDS: oxyCODONE 5 MG TAB PO PRN ×5 (02:40→21:52)
[2018-01-07 05:29] LABS: Cardiac Risk 7.1 (Less than 4.5); Cholesterol 270 mg/dl (< 200 Desired); HDL Cholesterol 38 mg/dL (>60 Neg Risk); Triglycerides 520 mg/dL (Less than 150)
[2018-01-07] MEDS: Piperacillin/Tazobactam 3.375 GM in Sodium Chloride 0.9% 100 ML IVPB SCH ×5 (05:38→23:44)
[2018-01-07] MEDS: Insulin Regular 300 UNITS/3 ML VIAL SC PRN ×4 (05:41→21:53)
[2018-01-07] MEDS: hydrALAZINE 20 MG/ML VIAL SLOW IVP PRN ×2 (05:53→23:45)
[2018-01-07] MEDS: Gabapentin 300 MG CAP PO SCH ×3 (07:46→21:52)
[2018-01-07] MEDS: Losartan 25 MG TAB PO SCH (07:46)
[2018-01-07] MEDS: Hydrochlorothiazide 25 MG TAB PO SCH (07:47)
[2018-01-07] MEDS: Carvedilol 25 MG TAB PO SCH ×2 (07:48→16:50)
[2018-01-07] MEDS: Insulin Glargine 80 UNITS in Pre-Filled Syringe 1 EACH SC SCH ×2 (08:54→21:52)
[2018-01-07] MEDS: tiZANidine HCl 4 MG TAB PO PRN ×2 (09:00→22:00)
[2018-01-07] MEDS ORDERED: Dextrose 5% in Water 1,000 ML IV PRN (09:04)
[2018-01-07] MEDS ORDERED: Dextrose 50% Abboject 50 ML SYRINGE SLOW IVP PRN (09:04)
[2018-01-07] MEDS ORDERED: Hydrochlorothiazide 25 MG TAB PO SCH (09:08)
[2018-01-07 09:19] LABS: Hemoglobin A1c 9.4 % (4.0-6.0)
[2018-01-07] MEDS: Fenofibrate Nanocrystallized 145 MG TAB PO SCH (09:41)
--- NOTE | 2018-01-07 10:34 | MRI ---
MRI RIGHT FOOT WITHOUT IV CONTRAST: INDICATIONS: Right foot ulceration with concern for osteomyelitis. History of a diminished GFR of 27. COMPARISON: Right foot radiograph dated 01/06/2018. TECHNIQUE: Multiplanar, multisequence MR images were obtained of the right foot without IV contrast. No IV cont rast was administered due to a diminished GFR of 27. FINDINGS: There are surface markers placed within the region of interest, underlying the plantar medial aspect of the great toe MTP joint. This is in the expected location of a superficial plantar ulceration. T here is soft tissue swelling and edema seen subjacent to the surface marker, consistent with the rex ent's known superficial wound. There is abnormal increased T2 signal with diminished T1 signal invol ving the tibial great toe sesamoid, suspicious for changes of osteomyelitis. There is some slight co rtical irregularity along the plantar surface of the tibial great toe sesamoid, suspicious also for c hanges of osteomyelitis. This is subjacent to the enlarged plantar based wound of the patient's medi al forefoot. There is an additional area of abnormal bone marrow signal intensity involving the distal tip of the great toe, suspicious for changes of osteomyelitis. This is most evident on image 14 of series 7, im age 2 of series 5, image 13 of series 6, and image 2 of series 9. There is some soft tissue edema al joby the plantar and medial aspects of the tip of the great toe. There is extensive edema involving the soft tissues of the forefoot, which could be related to lymphe andrei or cellulitis. There is diffuse abnormal increased T2 signal involving the intrinsic foot muscu lature, which can be seen with myositis or changes of acute denervation. The visualized aspects of t he flexor and extensor tendons of the forefoot appear within normal limits. IMPRESSION: 1. Large plantar based wound underlying the great toe metatarsophalangeal joint with changes of oste omyelitis involving the great toe tibial sesamoid. There is no evidence to suggest joint effusion in the great toe metatarsophalangeal joint to suggest the presence of associated septic arthritis. No osteomyelitis changes are evident within the great toe metatarsal or proximal phalanx. Additional ar ea of abnormal marrow signal intensity with associated overlying soft tissue edema involving the tip of the great toe distal phalanx, suspicious for changes of osteomyelitis within this location. 2. Diffuse edema within the subcutaneous tissues of the foot may be related to lymphedema or celluli tis. 3. Increased edema in the intrinsic musculature can be seen in denervation states in diabetic patien ts or can be related to diffuse myositis. POS: SHANTANU
[2018-01-07] MEDS: HumaLOG 300 UNITS/3 ML VIAL SC SCH ×2 (12:08→16:53)
--- NOTE | 2018-01-07 17:34 | PRG ---
DATE OF SERVICE: 01/07/2018 Ms. Goldman has had her MRI scan. I have talked to her earlier about amputation of her toe and metata rsal. She was agreeable. She, however, has discussed with Dr. Russell and wants to try nonoperative c are. In my opinion, the patient has necrotic plantar neuropathic ulcer about a 2.5 to 3 cm diameter with necrotic skin, subcutaneous tissue, and connective tissue. Communicating to the bone and althou gh there are no niecy osteomyelitic changes. There are early in the osteomyelitic changes in the ses amoid bone and I do not think this wound will heal. I think she is at risk for progressive infection and cellulitis that may require emergent intervention in the future. However, patient wants to cont inue wound care and intravenous antibiotics which I think is fruitless. We will cancel her surgery a nd be available in the future should she change her mind.
--- NOTE | 2018-01-07 21:45 | HP ---
HISTORY OF PRESENT ILLNESS: Kiesha Goldman is a 42-year-old female patient who I have seen in the [place], [place] for right foot diabetic great toe osteomyelitis, phalanx and neuropathic blister, plantar right fo ot beneath the metatarsophalangeal joint. She has had a Villalba catheter placed, been on prolonged a ntibiotics for her great toe phalanx osteomyelitis which has resolved. She now presents with a deep large plantar neuropathic diabetic ulcer, right foot. She has had MRI suggesting sesamoid bone osteo myelitis. This wound is approximately 3 cm diameter with necrotic tissue and probing tracks to the m etatarsal phalangeal joint sesamoid bone. Dr. Russell has seen her. This wound is not amenable to mirian atment nonoperatively. I have recommended amputation of right great toe and metatarsal and wound VAC application with outpatient oral antibiotics, most likely after amputation of infected bone and outp atient wound VAC care. I expect she will be able to be discharged home later in the week with outpat ient management and wound VAC. She will need a postoperative shoe. She understands risks, benefits, and consents. ALLERGIES: CIPRO, LISINOPRIL. TOBACCO: None. ALCOHOL: None. PAST MEDICAL HISTORY: Lumbar herniated disk, obesity, type 2 diabetes mellitus, hypertension, hamlin ry artery disease, chronic kidney disease stage 3, history of . PAST SURGICAL HISTORY: L5-S1 diskectomy, tonsillectomy, osteomyelitis of right great toe, distal pha lanx relieved with intravenous antibiotics via Villalba catheter subsequently removed. HOME MEDICATIONS: Gabapentin, Nexium, Coreg, hydrochlorothiazide, insulin, metformin, losartan, Leve monika insulin, tramadol, ____. HOSPITAL MEDICATIONS: Vancomycin and Zosyn. REVIEW OF SYSTEMS: Noncontributory. Dr. Russell has seen her this hospitalization. MRI obtained. PHYSICAL EXAMINATION: VITAL SIGNS: 5 foot 11, 222 pounds, 31 BMI, 97.9, 69, 133/88. HEENT: Unremarkable. LUNGS: Clear to auscultation. CARDIAC: Regular rate and rhythm without murmur or gallop. ABDOMEN: Soft, nontender, no masses palpable. EXTREMITIES: Femoral popliteal pulses bilaterally. Palpable pedal pulses, right foot plantar ulcera tion, diabetic neuropathic beneath the metatarsophalangeal joint of the great toe. There is a 3 cm a elinor of ulceration with necrotic tissue that when probing extends into the joint. There is surroundin g cellulitis. ASSESSMENT AND PLAN: Diabetic foot infection, right metatarsophalangeal joint great toe. Would grace mmend amputation of the right great toe and metatarsal. She understands risks and benefits and conse nts. She will need a postoperative shoe when out of bed postoperatively. I expect her to be dischar ge home with outpatient wound VAC care. She lives in [place]. She could drive to [facility] 2-3 times a week for wound VAC care versus [facility] for wound care versus [facility]. Based on her transportation, we will let [employer] out. She s stuart follow up in my office in 2-3 weeks. We will plan this tomorrow afternoon.
--- NOTE | 2018-01-07 21:49 | PDOC.PN ---
- Subjective Encounter Start Date: 01/07/18 Encounter Start Time: 13:30 Subjective: pt up in bed very emotional about possible amputation - Objective Vital Signs & Weight: Vital Signs (12 hours) Temp Pulse Resp BP Pulse Ox 01/07/18 20:22 98.1 F 76 18 173/92 H 93 L 01/07/18 16:27 98.1 F 70 18 134/82 94 L 01/07/18 11:23 97.9 F 69 16 133/88 97 Weight Admit Weight 222 lb Weight 222 lb I&O: 01/06/18 01/07/18 01/08/18 06:59 06:59 06:59 Intake Total 660 3780 1880 Balance 660 3780 1880 Additional Labs: Accuchecks 01/07/18 01/07/18 01/07/18 16:33 11:25 05:43 POC Glucose 299 H 351 H 426 H Phys Exam - Physical Examination HEENT: PERRLA, moist MMs, sclera anicteric, TM's clear, oral pharynx no lesions , 2+ tonsils Respiratory: no wheezing, no rales, no rhonchi, wheezing present, clear to auscultation bilateral Cardiovascular: RRR, no significant murmur, no rub, gallop, irregular Gastrointestinal: soft, non-tender, no distention, positive bowel sounds Musculoskeletal: no edema, pulses present, edema present Neurological: non-focal, normal sensation, moves all 4 limbs Deviation from normal: very emotional Deviation from normal: mild erythema to right base of first metatarsal Dx/Plan (1) Diabetic foot infection Code(s): E11.628 - TYPE 2 DIABETES MELLITUS WITH OTHER SKIN COMPLICATIONS; L08.9 - LOCAL INFECTION OF THE SKIN AND SUBCUTANEOUS TISSUE, UNSP Status: Acute (2) Acute worsening of stage 3 chronic kidney disease Code(s): N18.3 - CHRONIC KIDNEY DISEASE, STAGE 3 (MODERATE) Status: Acute (3) Obesity Code(s): E66.9 - OBESITY, UNSPECIFIED Status: Chronic (4) DM type 2 (diabetes mellitus, type 2) Status: Chronic Qualifiers: Comment: (5) HTN (hypertension) Code(s): I10 - ESSENTIAL (PRIMARY) HYPERTENSION Status: Chronic Qualifiers: Comment: (6) Hypertriglyceridemia Code(s): E78.1 - PURE HYPERGLYCERIDEMIA Status: Acute (7) Hypercholesteremia Code(s): E78.00 - PURE HYPERCHOLESTEROLEMIA, UNSPECIFIED Status: Acute - Plan pt's triglycerides were in the 500 will start her on tricor -: will increase her statin to 80mg daily -: will add premeal insulin since her blood sugars are uncontrolled -: continue abx for now * . Review of Systems - Review of Systems ENT: negative: Ear Pain, Ear Discharge, Nose Pain, Nose Discharge, Nose Congestion, Mouth Pain, Mouth Swelling, Throat Pain, Throat Swelling, Other Respiratory: negative: Cough, Dry, Shortness of Breath, Hemoptysis, SOB with Excertion, Pleuritic Pain, Sputum, Wheezing Cardiovascular: negative: chest pain, palpitations, orthopnea, paroxysmal nocturnal dyspnea, edema, light headedness, other Gastrointestinal: negative: Nausea, Vomiting, Abdominal Pain, Diarrhea, Constipation, Melena, Hematochezia, Other - Medications/Allergies Allergies/Adverse Reactions: Allergies Allergy/AdvReac Type Severity Reaction Status Date / Time ciprofloxacin Allergy Verified 01/06/18 04:15 lisinopril Allergy Anaphylaxis Verified 01/06/18 04:15 Medications: Current Medications Atorvastatin Calcium (Lipitor) 80 mg PO HS [facility] Carvedilol (Coreg) 25 mg PO BID-WM [facility] Last Admin: 01/07/18 16:50 Dose: 25 mg Dextrose/Water (Dextrose 50%) 25 gm SLOW IVP PRN PRN PRN Reason: Hypoglycemia Fenofibrate (Tricor) 145 mg PO DAILY [facility] Last Admin: 01/07/18 09:41 Dose: 145 mg Gabapentin (Neurontin) 300 mg PO TID [facility] Last Admin: 01/07/18 16:50 Dose: 300 mg Glucagon (Glucagon) 1 mg IM PRN PRN PRN Reason: Hypoglycemia Hydralazine HCl (Apresoline) 5 mg SLOW IVP Q6H PRN PRN Reason: SBP Greater Than 180 Last Admin: 01/07/18 05:53 Dose: 5 mg Hydrochlorothiazide (Hydrochlorothiazide) 25 mg PO DAILY [facility] Piperacillin Sod/Tazobactam (Sod 3.375 gm/ Sodium Chloride) 100 mls @ 200 mls/ hr IVPB Q6HR [facility] Last Admin: 01/07/18 17:03 Dose: 100 mls Insulin Glargine 80 units/ (Miscellaneous Medication) 0.8 mls @ 0 mls/hr SC BID [facility] Last Admin: 01/07/18 08:54 Dose: 0.8 mls Vancomycin HCl 1.5 gm/ Sodium (Chloride) 300 mls @ 200 mls/hr IVPB 0100 [facility] Last Admin: 01/07/18 01:09 Dose: 300 mls Dextrose/Water (D5w) 1,000 mls @ 0 mls/hr IV .Q0M PRN; As Directed PRN Reason: Hypoglycemia Sodium Chloride (Normal Saline 0.9%) 1,000 mls @ 100 mls/hr IV .Q10H [facility] Insulin Human Lispro (Humalog) 6 units SC 0800 [facility] Insulin Human Lispro (Humalog) 6 units SC 1200 [facility] Last Admin: 01/07/18 12:08 Dose: 6 unit Insulin Human Lispro (Humalog) 6 units SC 1700 [facility] Last Admin: 01/07/18 16:53 Dose: 6 unit Insulin Human Regular (Humulin R) 0 units SC .MILD SLIDING SCALE PRN PRN Reason: Mild Correctional Scale Last Admin: 01/07/18 16:53 Dose: 4 unit Losartan Potassium (Cozaar) 50 mg PO DAILY [facility] Last Admin: 01/07/18 07:46 Dose: 50 mg Miscellaneous Medication (Pharmacy To Dose) 1 each IVPB PRN PRN PRN Reason: DIABETIC FOOT INFXN Oxycodone HCl (Oxycodone Ir) 10 mg PO Q4H PRN PRN Reason: Pain Last Admin: 01/07/18 18:11 Dose: 10 mg Pantoprazole Sodium (Protonix) 40 mg PO DAILY [facility] Last Admin: 01/07/18 07:48 Dose: 40 mg Sodium Chloride (Flush - Normal Saline) 10 ml IVF PRN PRN PRN Reason: Saline Flush Tizanidine HCl (Zanaflex) 4 mg PO Q8H PRN PRN Reason: MUSCLE Pain Last Admin: 01/07/18 09:00 Dose: 4 mg Tramadol HCl (Ultram) 50 mg PO Q6H PRN PRN Reason: Pain 4-6
[2018-01-07] MEDS: Atorvastatin Calcium 40 MG TAB PO SCH (21:52)
[2018-01-08] MEDS: Vancomycin HCl 1.5 GM in Sodium Chloride 0.9% 250 ML 300 ML IVPB SCH (01:09)
[2018-01-08] MEDS: oxyCODONE 5 MG TAB PO PRN ×4 (03:10→20:37)
[2018-01-08 05:57] LABS: Anion Gap 14 mmol/L (10-20); BUN (Urea Nitrogen) 29 mg/dL (7.0-18.7); Calc. Creatinine Clearance 46 mL/min (70-130); Calcium 8.1 mg/dL (7.8-10.44); Carbon Dioxide 22 mmol/L (22-29); Chloride 98 mmol/L (98-107); Estimated GFR-MDRD 21; Glucose 465 mg/dL (70-105); Potassium 4.6 mmol/L (3.5-5.1); Sodium 129 mmol/L (136-145)
[2018-01-08] MEDS: Piperacillin/Tazobactam 3.375 GM in Sodium Chloride 0.9% 100 ML IVPB SCH ×4 (05:59→23:06)
[2018-01-08] MEDS: Insulin Regular 300 UNITS/3 ML VIAL SC PRN ×3 (05:59→16:19)
--- NOTE | 2018-01-08 07:24 | PRG ---
DATE OF SERVICE: 01/08/2018 HISTORY: Ms. Goldman denies any headaches, no respiratory symptoms, abdominal pain, no diarrhea. PHYSICAL EXAMINATION: VITAL SIGNS: Essentially normal except for elevation of systolic blood pressure. HEENT: Ocular movements conjugate. LUNGS: Clear. HEART: S1, S2, regular rate. ABDOMEN: Soft, nondistended. EXTREMITIES: The right first and second metatarsophalangeal joint skin site with some decrease in er ythema. MRI showed sesamoid inflammatory changes of the ulceration, but no metatarsal or phalangeal involveme nt. I discussed with Dr. Amezcua and with the patient and the patient would like to attempt preservation o f the toe. Since there is no involvement of the area bony structures except for the small sesamoids and the patient has adequate vascular supply it is conceivable that she could granulate the wound and lead to cover with soft tissue, although she definitely is at risk for progression of the infection and at risk for eventual amputation. We will evaluate the results of cultures to define the antimicr obial therapy. May need replacement of her central catheter for treatment again.
[2018-01-08] MEDS ORDERED: HumaLOG 300 UNITS/3 ML VIAL SC SCH ×2 (08:00→18:15)
[2018-01-08] MEDS ORDERED: Sodium Chloride 0.9% 1,000 ML IV SCH (08:00)
[2018-01-08] MEDS: Carvedilol 25 MG TAB PO SCH ×2 (09:05→16:16)
[2018-01-08] MEDS: Losartan 25 MG TAB PO SCH (09:05)
[2018-01-08] MEDS: Gabapentin 300 MG CAP PO SCH ×3 (09:09→20:37)
[2018-01-08] MEDS: Fenofibrate Nanocrystallized 145 MG TAB PO SCH (09:10)
[2018-01-08] MEDS: tiZANidine HCl 4 MG TAB PO PRN ×2 (09:16→20:40)
[2018-01-08] MEDS: Insulin Glargine 80 UNITS in Pre-Filled Syringe 1 EACH SC SCH ×2 (10:34→20:37)
[2018-01-08] MEDS: HumaLOG 300 UNITS/3 ML VIAL SC SCH ×2 (13:00→16:18)
[2018-01-08] MEDS ORDERED: Insulin Regular 300 UNITS/3 ML VIAL SC PRN (18:06)
--- NOTE | 2018-01-08 18:11 | PDOC.PN ---
- Subjective Encounter Start Date: 01/08/18 Encounter Start Time: 11:30 Subjective: pt up in bed no complains - Objective Vital Signs & Weight: Vital Signs (12 hours) Temp Pulse Resp BP Pulse Ox 01/08/18 15:59 98.4 F 79 18 151/72 H 98 01/08/18 11:36 98.3 F 69 18 111/72 97 01/08/18 09:00 98.1 F 70 16 95 01/08/18 07:35 98.1 F 70 16 174/96 H 95 Weight Admit Weight 222 lb Weight 222 lb I&O: 01/07/18 01/08/18 01/09/18 06:59 06:59 06:59 Intake Total 3780 4310 1080 Balance 3780 4310 1080 Result Diagrams: 01/08/18 00:11 Additional Labs: Accuchecks 01/08/18 01/08/18 01/08/18 16:11 11:39 04:56 POC Glucose 247 H 289 H 435 H 01/07/18 21:54 POC Glucose 324 H Phys Exam - Physical Examination HEENT: PERRLA, moist MMs, sclera anicteric, TM's clear, oral pharynx no lesions , 2+ tonsils Neck: no nodes, no JVD, supple, full ROM Respiratory: no wheezing, no rales, no rhonchi, wheezing present, clear to auscultation bilateral Cardiovascular: RRR, no significant murmur, no rub, gallop, irregular Gastrointestinal: soft, non-tender, no distention, positive bowel sounds left foot ulcer mild erythema noted Dx/Plan (1) Diabetic foot infection Code(s): E11.628 - TYPE 2 DIABETES MELLITUS WITH OTHER SKIN COMPLICATIONS; L08.9 - LOCAL INFECTION OF THE SKIN AND SUBCUTANEOUS TISSUE, UNSP Status: Acute (2) Acute worsening of stage 3 chronic kidney disease Code(s): N18.3 - CHRONIC KIDNEY DISEASE, STAGE 3 (MODERATE) Status: Acute (3) Obesity Code(s): E66.9 - OBESITY, UNSPECIFIED Status: Chronic (4) DM type 2 (diabetes mellitus, type 2) Status: Chronic Qualifiers: Comment: (5) HTN (hypertension) Code(s): I10 - ESSENTIAL (PRIMARY) HYPERTENSION Status: Chronic Qualifiers: Comment: (6) Hypertriglyceridemia Code(s): E78.1 - PURE HYPERGLYCERIDEMIA Status: Acute (7) Hypercholesteremia Code(s): E78.00 - PURE HYPERCHOLESTEROLEMIA, UNSPECIFIED Status: Acute (8) GWEN (acute kidney injury) Code(s): N17.9 - ACUTE KIDNEY FAILURE, UNSPECIFIED Status: Acute - Plan will increase pt's meal insulin to 15units. Her sugars are uncontrolled -: she eats too much fruit. She was asked to decrease her fruit intake -: Her creatinine has worsen will monitor will discontinue diuretic -: pt will undergo debribement per surgery since she does not want to -: undergo amputation but high risk of recurrence given her uncontrolled dm * . Review of Systems - Review of Systems Eyes: negative: Pain, Vision Change, Conjunctivae Inflammation, Eyelid Inflammation, Redness, Other ENT: negative: Ear Pain, Ear Discharge, Nose Pain, Nose Discharge, Nose Congestion, Mouth Pain, Mouth Swelling, Throat Pain, Throat Swelling, Other Respiratory: negative: Cough, Dry, Shortness of Breath, Hemoptysis, SOB with Excertion, Pleuritic Pain, Sputum, Wheezing Cardiovascular: negative: chest pain, palpitations, orthopnea, paroxysmal nocturnal dyspnea, edema, light headedness, other - Medications/Allergies Allergies/Adverse Reactions: Allergies Allergy/AdvReac Type Severity Reaction Status Date / Time ciprofloxacin Allergy Verified 01/06/18 04:15 lisinopril Allergy Anaphylaxis Verified 01/06/18 04:15 Medications: Current Medications Atorvastatin Calcium (Lipitor) 80 mg PO HS [facility] Last Admin: 01/07/18 21:52 Dose: 80 mg Carvedilol (Coreg) 25 mg PO BID-WM [facility] Last Admin: 01/08/18 16:16 Dose: 25 mg Dextrose/Water (Dextrose 50%) 25 gm SLOW IVP PRN PRN PRN Reason: Hypoglycemia Fenofibrate (Tricor) 145 mg PO DAILY [facility] Last Admin: 01/08/18 09:10 Dose: 145 mg Gabapentin (Neurontin) 300 mg PO TID [facility] Last Admin: 01/08/18 16:16 Dose: 300 mg Glucagon (Glucagon) 1 mg IM PRN PRN PRN Reason: Hypoglycemia Hydralazine HCl (Apresoline) 5 mg SLOW IVP Q6H PRN PRN Reason: SBP Greater Than 180 Last Admin: 01/07/18 23:45 Dose: 5 mg Piperacillin Sod/Tazobactam (Sod 3.375 gm/ Sodium Chloride) 100 mls @ 200 mls/ hr IVPB Q6HR [facility] Last Admin: 01/08/18 18:03 Dose: 100 mls Insulin Glargine 80 units/ (Miscellaneous Medication) 0.8 mls @ 0 mls/hr SC BID [facility] Last Admin: 01/08/18 10:34 Dose: 0.8 mls Vancomycin HCl 1.5 gm/ Sodium (Chloride) 300 mls @ 200 mls/hr IVPB 0100 [facility] Last Admin: 01/08/18 01:09 Dose: 300 mls Dextrose/Water (D5w) 1,000 mls @ 0 mls/hr IV .Q0M PRN; As Directed PRN Reason: Hypoglycemia Insulin Human Lispro (Humalog) 15 units SC 0800 [facility] Insulin Human Lispro (Humalog) 15 units SC 1200 [facility] Insulin Human Lispro (Humalog) 15 units SC 1700 [facility] Insulin Human Lispro (Humalog) 10 units SC NOW [facility] Stop: 01/08/18 20:15 Insulin Human Regular (Humulin R) 0 units SC .AGGRESSIVE SLIDING PRN PRN Reason: Aggressive Sliding Scale Losartan Potassium (Cozaar) 50 mg PO DAILY [facility] Last Admin: 01/08/18 09:05 Dose: 50 mg Miscellaneous Medication (Pharmacy To Dose) 1 each IVPB PRN PRN PRN Reason: DIABETIC FOOT INFXN Oxycodone HCl (Oxycodone Ir) 10 mg PO Q4H PRN PRN Reason: Pain Last Admin: 01/08/18 16:16 Dose: 10 mg Pantoprazole Sodium (Protonix) 40 mg PO DAILY [facility] Last Admin: 01/08/18 09:10 Dose: 40 mg Sodium Chloride (Flush - Normal Saline) 10 ml IVF PRN PRN PRN Reason: Saline Flush Tizanidine HCl (Zanaflex) 4 mg PO Q8H PRN PRN Reason: MUSCLE Pain Last Admin: 01/08/18 09:16 Dose: 4 mg Tramadol HCl (Ultram) 50 mg PO Q6H PRN PRN Reason: Pain 4-6
[2018-01-08] MEDS: Atorvastatin Calcium 40 MG TAB PO SCH (20:37)
[2018-01-09] MEDS: Vancomycin HCl 1.5 GM in Sodium Chloride 0.9% 250 ML 300 ML IVPB SCH (00:10)
--- NOTE | 2018-01-09 02:20 | OP ---
DATE OF OPERATION: 01/08/2018 PREOPERATIVE DIAGNOSIS: Right foot plantar neuropathic ulcer beneath the metatarsophalangeal joint w ith equivocal findings of osteomyelitis of sesamoid. POSTOPERATIVE DIAGNOSIS: Right foot plantar neuropathic ulcer beneath the metatarsophalangeal joint with equivocal findings of osteomyelitis of sesamoid. PROCEDURE: Debridement of neuropathic ulcer, plantar right foot, debridement of skin and subcutaneou s tissue sharply excisional using a 10 blade scalpel. ANESTHESIA: None (neuropathy). SURGEON: Devendra Amezcua M.D. DESCRIPTION PROCEDURE: The patient is at bedside in her room, her right foot plantar prepared with a lcohol and necrotic neuropathic ulcer callus debrided sharply, underlying necrotic subcutaneous tissu e debrided sharply. There was some minimal bleeding in the depths of the wound. The patient tolerat ed the procedure well without any significant discomfort. The patient will be undergoing antibiotics per Dr. Russell and outpatient wound care and wound VAC to try to salvage this wound without amputatio n.
[2018-01-09] MEDS: oxyCODONE 5 MG TAB PO PRN ×4 (02:26→20:12)
[2018-01-09 06:04] LABS: Anion Gap 9 mmol/L (10-20); BUN (Urea Nitrogen) 26 mg/dL (7.0-18.7); Calc. Creatinine Clearance 48 mL/min (70-130); Calcium 8.4 mg/dL (7.8-10.44); Carbon Dioxide 28 mmol/L (22-29); Chloride 99 mmol/L (98-107); Estimated GFR-MDRD 22; Glucose 379 mg/dL (70-105); Potassium 4.4 mmol/L (3.5-5.1); Sodium 132 mmol/L (136-145)
[2018-01-09] MEDS: Piperacillin/Tazobactam 3.375 GM in Sodium Chloride 0.9% 100 ML IVPB SCH ×3 (06:12→19:46)
[2018-01-09] MEDS: Carvedilol 25 MG TAB PO SCH ×2 (07:48→16:57)
[2018-01-09] MEDS: Losartan 25 MG TAB PO SCH (07:48)
[2018-01-09] MEDS ORDERED: HumaLOG 300 UNITS/3 ML VIAL SC SCH ×6 (08:00→17:00)
[2018-01-09] MEDS: Gabapentin 300 MG CAP PO SCH ×2 (08:36→20:13)
[2018-01-09] MEDS: Fluconazole 100 MG TAB PO SCH (08:36)
[2018-01-09] MEDS: Fenofibrate Nanocrystallized 145 MG TAB PO SCH (08:37)
[2018-01-09] MEDS: Insulin Glargine 80 UNITS in Pre-Filled Syringe 1 EACH SC SCH ×2 (08:37→20:12)
[2018-01-09] MEDS ORDERED: NIFEdipine XL 60 MG TAB PO SCH ×2 (09:30→10:00)
[2018-01-09] MEDS: hydrALAZINE 20 MG/ML VIAL SLOW IVP PRN (10:57)
[2018-01-09] MEDS: Sodium Chloride 0.9% 1,000 ML IV SCH (12:31)
[2018-01-09] MEDS: hydrALAZINE 25 MG TAB PO SCH ×3 (12:32→20:13)
[2018-01-09] MEDS: Ondansetron HCl/PF 4 MG/2 ML Vial IVP PRN (12:32)
--- NOTE | 2018-01-09 12:52 | CON ---
DATE OF CONSULTATION: 01/09/2018 CONSULTING PHYSICIAN: Dr. Quintanilla REASON FOR CONSULTATION: Acute kidney injury. REASON FOR ADMISSION: Right nonhealing foot ulcer. HISTORY OF PRESENT ILLNESS: This is a 42-year-old female with history of coronary artery disease, ty pe 2 diabetes, hypertension, peripheral vascular disease, chronic kidney disease, who came to the [facility] with the above complaints. Nephrology is currently consulted for acute kidney injury. Her cre atinine on admission was 1.9, baseline stays around 1.5 to 1.3 and this morning it was 2.4. She was a few medications including hydralazine and losartan, which was stopped and she is currently on IV fl uids, low dose. The patient complains of nausea this morning and she threw up and no fever or chills. No chest pain, palpitations. PAST MEDICAL HISTORY: Positive for coronary artery disease, type 2 diabetes, hypertension, hyperlipi demia, chronic back pain, chronic kidney disease, stage 3. PAST SURGICAL HISTORY: , orthopedic surgery, diskectomy, tonsillectomy, tubal ligation. HOME MEDICATIONS: Amlodipine, Novolin, Nexium, metformin, Levemir, losartan. ALLERGIES: LISINOPRIL. FAMILY HISTORY: Positive for diabetes. SOCIAL HISTORY: Former drug user, cocaine user, smokes cigarettes. No alcohol use reported. REVIEW OF SYSTEMS: The following complete review of systems was negative, unless otherwise mentioned in the HPI or below: Constitutional: Weight loss or gain, ability to conduct usual activities. Skin: Rash, itching. Eyes: Double vision, pain. ENT/Mouth: Nose bleeding, neck stiffness, pain, tenderness. Cardiovascular: Palpitations, dyspnea on exertion, orthopnea. Respiratory: Shortness of breath, wheezing, cough, hemoptysis, fever or night sweats. Gastrointestinal: Poor appetite, abdominal pain, heartburn, nausea, vomiting, constipation, or diarrhea. Genitourinary: Urgency, frequency, dysuria, nocturia. Musculoskeletal: Pain, swelling. Neurologic/Psychiatric: Anxiety, depression. Allergy/Immunologic: Skin rash, bleeding tendency. PHYSICAL EXAMINATION: GENERAL: This is a well-built female in no apparent distress. VITAL SIGNS: Temperature 98.7, pulse 79, respirations 18, blood pressure 161/90. HEENT: Atraumatic, normocephalic. Oral mucosa is moist. NECK: Supple. CARDIOVASCULAR: S1, S2, regular. RESPIRATORY: Clear. ABDOMEN: Abdomen is soft. MUSCULOSKELETAL: 1+ edema. DERMATOLOGIC: No skin rash. NEUROLOGIC: Alert, awake. PSYCHIATRIC: Mood and affect normal. LABORATORY AND X-RAY FINDINGS: Potassium 4.4, BUN 26, creatinine is 2.1. ASSESSMENT AND PLAN: 1. Acute kidney injury on chronic kidney stage 3, most likely from volume depletion. Agree with hol ding nephrotoxins. Gentle hydration. 2. Hyponatremia. Will have IV fluids. 3. Uncontrolled type 2 diabetes. 4. Sepsis. Continue antibiotics. 5. Edema, controlled. 6. Hypertension, stable. We will continue gentle hydration. Agree with holding the diuretics and ARBs. Renally dose all the medicines. We will stop fenofibrate, renally dose gabapentin, continue with good glucose control. C ontinue gentle hydration as tolerated. We will follow. Thank you for the consult.
[2018-01-09] MEDS ORDERED: Dextrose 5% in Water 1,000 ML IV PRN (15:50)
[2018-01-09] MEDS ORDERED: Dextrose 50% Abboject 50 ML SYRINGE SLOW IVP PRN (15:50)
--- NOTE | 2018-01-09 15:54 | PDOC.PN ---
- Subjective Encounter Start Date: 01/09/18 Encounter Start Time: 11:30 Subjective: pt up in bed was nauseated today - Objective Vital Signs & Weight: Vital Signs (12 hours) Temp Pulse Resp BP BP BP Pulse Ox 01/09/18 12:32 79 154/82 H 01/09/18 12:09 98.2 F 79 18 154/82 H 93 L 01/09/18 11:43 98.7 F 79 16 167/90 H 92 L 01/09/18 11:10 97.5 F L 77 18 186/105 H 97 01/09/18 10:57 70 186/105 H 01/09/18 10:06 70 181/100 H 01/09/18 08:23 98.6 F 70 16 93 L 01/09/18 07:46 74 177/99 H 01/09/18 07:11 98.6 F 70 16 196/103 H 93 L Weight Admit Weight 222 lb Weight 222 lb I&O: 01/08/18 01/09/18 01/10/18 06:59 06:59 06:59 Intake Total 4310 1080 Balance 4310 1080 Result Diagrams: 01/09/18 04:48 Additional Labs: Accuchecks 01/09/18 01/09/18 01/09/18 11:39 11:07 05:28 POC Glucose 122 H 128 H 425 H 01/08/18 01/08/18 20:18 16:11 POC Glucose 260 H 247 H Phys Exam - Physical Examination HEENT: PERRLA, moist MMs, sclera anicteric, TM's clear, oral pharynx no lesions , 2+ tonsils Neck: no nodes, no JVD, supple, full ROM Respiratory: no wheezing, no rales, no rhonchi, wheezing present, clear to auscultation bilateral Cardiovascular: RRR, no significant murmur, no rub, gallop, irregular Gastrointestinal: soft, non-tender, no distention, positive bowel sounds right foot dressing stable Neurological: non-focal, normal sensation, moves all 4 limbs Dx/Plan (1) Diabetic foot infection Code(s): E11.628 - TYPE 2 DIABETES MELLITUS WITH OTHER SKIN COMPLICATIONS; L08.9 - LOCAL INFECTION OF THE SKIN AND SUBCUTANEOUS TISSUE, UNSP Status: Acute (2) Acute worsening of stage 3 chronic kidney disease Code(s): N18.3 - CHRONIC KIDNEY DISEASE, STAGE 3 (MODERATE) Status: Acute (3) Obesity Code(s): E66.9 - OBESITY, UNSPECIFIED Status: Chronic (4) DM type 2 (diabetes mellitus, type 2) Status: Chronic Qualifiers: Comment: (5) HTN (hypertension) Code(s): I10 - ESSENTIAL (PRIMARY) HYPERTENSION Status: Chronic Qualifiers: Comment: (6) Hypertriglyceridemia Code(s): E78.1 - PURE HYPERGLYCERIDEMIA Status: Acute (7) Hypercholesteremia Code(s): E78.00 - PURE HYPERCHOLESTEROLEMIA, UNSPECIFIED Status: Acute (8) GWEN (acute kidney injury) Code(s): N17.9 - ACUTE KIDNEY FAILURE, UNSPECIFIED Status: Acute - Plan pt's creatinine has worsen will consult nephro -: all nephrotoxins stopped -: very aggressive sliding scale -: will add procardia/increase dose of hydralizine * . Review of Systems - Review of Systems ENT: negative: Ear Pain, Ear Discharge, Nose Pain, Nose Discharge, Nose Congestion, Mouth Pain, Mouth Swelling, Throat Pain, Throat Swelling, Other Respiratory: negative: Cough, Dry, Shortness of Breath, Hemoptysis, SOB with Excertion, Pleuritic Pain, Sputum, Wheezing Cardiovascular: negative: chest pain, palpitations, orthopnea, paroxysmal nocturnal dyspnea, edema, light headedness, other Gastrointestinal: negative: Nausea, Vomiting, Abdominal Pain, Diarrhea, Constipation, Melena, Hematochezia, Other Genitourinary: negative: Dysuria, Frequency, Incontinence, Hematuria, Retention , Other - Medications/Allergies Allergies/Adverse Reactions: Allergies Allergy/AdvReac Type Severity Reaction Status Date / Time ciprofloxacin Allergy Verified 01/06/18 04:15 lisinopril Allergy Anaphylaxis Verified 01/06/18 04:15 Medications: Current Medications Atorvastatin Calcium (Lipitor) 80 mg PO HS [facility] Last Admin: 01/08/18 20:37 Dose: 80 mg Carvedilol (Coreg) 25 mg PO BID-WM [facility] Last Admin: 01/09/18 07:48 Dose: 25 mg Dextrose/Water (Dextrose 50%) 25 gm SLOW IVP PRN PRN PRN Reason: Hypoglycemia Dextrose/Water (Dextrose 50%) 25 gm SLOW IVP PRN PRN PRN Reason: Hypoglycemia Fluconazole (Diflucan) 100 mg PO DAILY [facility] Last Admin: 01/09/18 08:36 Dose: 100 mg Gabapentin (Neurontin) 300 mg PO BID [facility] Glucagon (Glucagon) 1 mg IM PRN PRN PRN Reason: Hypoglycemia Glucagon (Glucagon) 1 mg IM PRN PRN PRN Reason: Hypoglycemia Heparin Sodium (Porcine) (Heparin) 5,000 units SC BID [facility] Hydralazine HCl (Apresoline) 5 mg SLOW IVP Q6H PRN PRN Reason: SBP Greater Than 180 Last Admin: 01/09/18 10:57 Dose: 5 mg Hydralazine HCl (Apresoline) 25 mg PO QID [facility] Last Admin: 01/09/18 12:32 Dose: 25 mg Piperacillin Sod/Tazobactam (Sod 3.375 gm/ Sodium Chloride) 100 mls @ 200 mls/ hr IVPB Q6HR [facility] Last Admin: 01/09/18 13:37 Dose: 100 mls Insulin Glargine 80 units/ (Miscellaneous Medication) 0.8 mls @ 0 mls/hr SC BID [facility] Last Admin: 01/09/18 08:37 Dose: 0.8 mls Vancomycin HCl 1.5 gm/ Sodium (Chloride) 300 mls @ 200 mls/hr IVPB 0100 [facility] Last Admin: 01/09/18 00:10 Dose: 300 mls Dextrose/Water (D5w) 1,000 mls @ 0 mls/hr IV .Q0M PRN; As Directed PRN Reason: Hypoglycemia Sodium Chloride (Normal Saline 0.9%) 1,000 mls @ 50 mls/hr IV .Q20H [facility] Last Admin: 01/09/18 12:31 Dose: 1,000 mls Dextrose/Water (D5w) 1,000 mls @ 0 mls/hr IV .Q0M PRN; As Directed PRN Reason: Hypoglycemia Insulin Human Lispro (Humalog) 20 units SC 0800 [facility] Insulin Human Lispro (Humalog) 20 units SC 1200 [facility] Last Admin: 01/09/18 12:32 Dose: 10 unit Insulin Human Lispro (Humalog) 20 units SC 1700 [facility] Insulin Human Lispro (Humalog) 0 units SC .BEDTIME SLIDING SC PRN PRN Reason: Bedtime Correctional Scale Miscellaneous Medication (Pharmacy To Dose) 1 each IVPB PRN PRN PRN Reason: DIABETIC FOOT INFXN Nifedipine (Procardia Xl) 60 mg PO DAILY [facility] Ondansetron HCl (Zofran) 4 mg IVP Q6H PRN PRN Reason: Nausea/Vomiting Last Admin: 01/09/18 12:32 Dose: 4 mg Oxycodone HCl (Oxycodone Ir) 10 mg PO Q4H PRN PRN Reason: Pain Last Admin: 01/09/18 15:43 Dose: 10 mg Pantoprazole Sodium (Protonix) 40 mg PO DAILY [facility] Last Admin: 01/09/18 08:37 Dose: 40 mg Sodium Chloride (Flush - Normal Saline) 10 ml IVF PRN PRN PRN Reason: Saline Flush Last Admin: 01/09/18 10:59 Dose: 10 ml Tizanidine HCl (Zanaflex) 4 mg PO Q8H PRN PRN Reason: MUSCLE Pain Last Admin: 01/08/18 20:40 Dose: 4 mg Tramadol HCl (Ultram) 50 mg PO Q6H PRN PRN Reason: Pain 4-6
[2018-01-09] MEDS: HumaLOG 300 UNITS/3 ML VIAL SC SCH (17:00)
[2018-01-09] MEDS: Atorvastatin Calcium 40 MG TAB PO SCH (20:13)
[2018-01-09] MEDS: Heparin 5,000 UNITS/ML VIAL SC SCH (20:14)
[2018-01-10] MEDS: Piperacillin/Tazobactam 3.375 GM in Sodium Chloride 0.9% 100 ML IVPB SCH ×5 (00:45→23:56)
[2018-01-10 01:00] LABS: Vancomycin, Trough 16.1 ug/mL
[2018-01-10] MEDS: hydrALAZINE 20 MG/ML VIAL SLOW IVP PRN (01:17)
[2018-01-10] MEDS: Vancomycin HCl 1.5 GM in Sodium Chloride 0.9% 250 ML 300 ML IVPB SCH (01:17)
[2018-01-10] MEDS: oxyCODONE 5 MG TAB PO PRN ×4 (02:48→20:54)
[2018-01-10] MEDS: HumaLOG 300 UNITS/3 ML VIAL SC SCH ×3 (05:57→17:42)
[2018-01-10] MEDS: Fluconazole 100 MG TAB PO SCH (08:52)
[2018-01-10] MEDS: NIFEdipine XL 60 MG TAB PO SCH (08:53)
[2018-01-10] MEDS: tiZANidine HCl 4 MG TAB PO PRN ×2 (08:54→20:54)
[2018-01-10] MEDS: hydrALAZINE 25 MG TAB PO SCH ×4 (08:55→20:54)
[2018-01-10] MEDS: Carvedilol 25 MG TAB PO SCH ×2 (08:56→17:41)
[2018-01-10] MEDS: Gabapentin 300 MG CAP PO SCH ×2 (08:58→20:54)
[2018-01-10] MEDS: Heparin 5,000 UNITS/ML VIAL SC SCH ×2 (08:59→20:54)
[2018-01-10] MEDS: Sodium Chloride 0.9% 1,000 ML IV SCH ×2 (09:00→13:04)
[2018-01-10] MEDS: Insulin Glargine 80 UNITS in Pre-Filled Syringe 1 EACH SC SCH ×2 (11:40→20:55)
--- NOTE | 2018-01-10 12:42 | PRG ---
DATE OF SERVICE: 01/10/2018 SUBJECTIVE: Patient was seen and examined at bedside and overnight events noted. Patient denies any shortness of breath or chest pain or palpitation. No history of nausea or vomitin g or diarrhea or fever or chills or cramps. OBJECTIVE: GENERAL: This is an obese female, in no apparent distress. VITAL SIGNS: Temperature 98.7, pulse 67, respiratory rate 18, blood pressure 152/87. HEENT: Atraumatic, normocephalic. Oral mucosa is moist. NECK: Supple. CARDIOVASCULAR: S1 and S2 heard. Rate and rhythm regular. RESPIRATORY: Clear to auscultation. GASTROINTESTINAL: Abdomen is soft. MUSCULOSKELETAL: No tenderness. No edema. DERMATOLOGIC: No skin rash. NEUROLOGIC: Alert and awake and oriented x3. No focal neurologic deficits. Moving all the extremit ies. PSYCHIATRIC: Mood and affect normal. LABORATORY DATA: Not done today. ASSESSMENT AND PLAN: 1. Acute kidney injury on chronic kidney stage 3. 2. Labs are pending from today. 3. Hyponatremia. Continue IV fluids. 4. Uncontrolled type 2 diabetes, counseled. 5. Sepsis, continue on antibiotics. 6. Edema. 7. Hypertension. We will continue to monitor. Recheck labs today.
[2018-01-10 14:53] LABS: Anion Gap 12 mmol/L (10-20); BUN (Urea Nitrogen) 20 mg/dL (7.0-18.7); Calc. Creatinine Clearance 60 mL/min (70-130); Calcium 8.4 mg/dL (7.8-10.44); Carbon Dioxide 24 mmol/L (22-29); Chloride 102 mmol/L (98-107); Estimated GFR-MDRD 29; Glucose 344 mg/dL (70-105); Potassium 3.9 mmol/L (3.5-5.1); Sodium 134 mmol/L (136-145)
[2018-01-10] MEDS: Atorvastatin Calcium 40 MG TAB PO SCH (20:53)
[2018-01-10] MEDS: HumaLOG 300 UNITS/3 ML VIAL SC PRN (21:01)
--- NOTE | 2018-01-10 21:15 | PDOC.PN ---
- Subjective Encounter Start Date: 01/10/18 Encounter Start Time: 10:00 Subjective: pt up in bed feels well today - Objective Vital Signs & Weight: Vital Signs (12 hours) Temp Pulse Resp BP BP Pulse Ox 01/10/18 20:00 97.9 F 77 18 149/80 H 97 01/10/18 17:40 67 138/76 01/10/18 12:57 67 157/83 H Weight Admit Weight 222 lb Weight 222 lb I&O: 01/09/18 01/10/18 01/11/18 06:59 06:59 06:59 Intake Total 1080 1950 720 Balance 1080 1950 720 Result Diagrams: 01/10/18 09:04 Additional Labs: Accuchecks 01/10/18 01/10/18 01/10/18 20:52 16:07 10:54 POC Glucose 319 H 225 H 312 H 01/10/18 01/10/18 05:59 05:05 POC Glucose 415 H 453 H Phys Exam - Physical Examination HEENT: PERRLA, moist MMs, sclera anicteric, TM's clear, oral pharynx no lesions , 2+ tonsils Neck: no nodes, no JVD, supple, full ROM Respiratory: no wheezing, no rales, no rhonchi, wheezing present, clear to auscultation bilateral Cardiovascular: RRR, no significant murmur, no rub, gallop, irregular Gastrointestinal: soft, non-tender, no distention, positive bowel sounds Musculoskeletal: no edema, pulses present Dx/Plan (1) Diabetic foot infection Code(s): E11.628 - TYPE 2 DIABETES MELLITUS WITH OTHER SKIN COMPLICATIONS; L08.9 - LOCAL INFECTION OF THE SKIN AND SUBCUTANEOUS TISSUE, UNSP Status: Acute (2) Acute worsening of stage 3 chronic kidney disease Code(s): N18.3 - CHRONIC KIDNEY DISEASE, STAGE 3 (MODERATE) Status: Acute (3) Obesity Code(s): E66.9 - OBESITY, UNSPECIFIED Status: Chronic (4) DM type 2 (diabetes mellitus, type 2) Status: Chronic Qualifiers: Comment: (5) HTN (hypertension) Code(s): I10 - ESSENTIAL (PRIMARY) HYPERTENSION Status: Chronic Qualifiers: Comment: (6) Hypertriglyceridemia Code(s): E78.1 - PURE HYPERGLYCERIDEMIA Status: Acute (7) Hypercholesteremia Code(s): E78.00 - PURE HYPERCHOLESTEROLEMIA, UNSPECIFIED Status: Acute (8) GWEN (acute kidney injury) Code(s): N17.9 - ACUTE KIDNEY FAILURE, UNSPECIFIED Status: Acute - Plan s/p debridement and wound vac placment -: pt's creatinine has improved -: blood sugars and little better -: Awaiting ID final recommendation on abx for possible olivier cath -: Discharge when ok with ID/surg * . Review of Systems - Review of Systems ENT: negative: Ear Pain, Ear Discharge, Nose Pain, Nose Discharge, Nose Congestion, Mouth Pain, Mouth Swelling, Throat Pain, Throat Swelling, Other Respiratory: negative: Cough, Dry, Shortness of Breath, Hemoptysis, SOB with Excertion, Pleuritic Pain, Sputum, Wheezing Cardiovascular: negative: chest pain, palpitations, orthopnea, paroxysmal nocturnal dyspnea, edema, light headedness, other Gastrointestinal: negative: Nausea, Vomiting, Abdominal Pain, Diarrhea, Constipation, Melena, Hematochezia, Other - Medications/Allergies Allergies/Adverse Reactions: Allergies Allergy/AdvReac Type Severity Reaction Status Date / Time ciprofloxacin Allergy Verified 01/06/18 04:15 lisinopril Allergy Anaphylaxis Verified 01/06/18 04:15 Medications: Current Medications Atorvastatin Calcium (Lipitor) 80 mg PO HS [facility] Last Admin: 01/09/18 20:13 Dose: 80 mg Carvedilol (Coreg) 25 mg PO BID-WM [facility] Last Admin: 01/10/18 17:41 Dose: 25 mg Dextrose/Water (Dextrose 50%) 25 gm SLOW IVP PRN PRN PRN Reason: Hypoglycemia Fluconazole (Diflucan) 100 mg PO DAILY [facility] Last Admin: 01/10/18 08:52 Dose: 100 mg Gabapentin (Neurontin) 300 mg PO BID [facility] Last Admin: 01/10/18 08:58 Dose: 300 mg Glucagon (Glucagon) 1 mg IM PRN PRN PRN Reason: Hypoglycemia Heparin Sodium (Porcine) (Heparin) 5,000 units SC BID [facility] Last Admin: 01/10/18 08:59 Dose: 5,000 units Hydralazine HCl (Apresoline) 5 mg SLOW IVP Q6H PRN PRN Reason: SBP Greater Than 180 Last Admin: 01/10/18 01:17 Dose: 5 mg Hydralazine HCl (Apresoline) 25 mg PO QID [facility] Last Admin: 01/10/18 17:40 Dose: 25 mg Piperacillin Sod/Tazobactam (Sod 3.375 gm/ Sodium Chloride) 100 mls @ 200 mls/ hr IVPB Q6HR [facility] Last Admin: 01/10/18 19:16 Dose: Not Given Insulin Glargine 80 units/ (Miscellaneous Medication) 0.8 mls @ 0 mls/hr SC BID [facility] Last Admin: 01/10/18 11:40 Dose: 0.8 mls Vancomycin HCl 1.5 gm/ Sodium (Chloride) 300 mls @ 200 mls/hr IVPB 0100 [facility] Last Admin: 01/10/18 01:17 Dose: 300 mls Sodium Chloride (Normal Saline 0.9%) 1,000 mls @ 50 mls/hr IV .Q20H [facility] Last Admin: 01/10/18 13:04 Dose: 1,000 mls Dextrose/Water (D5w) 1,000 mls @ 0 mls/hr IV .Q0M PRN; As Directed PRN Reason: Hypoglycemia Insulin Human Lispro (Humalog) 0 units SC .BEDTIME SLIDING SC PRN PRN Reason: Bedtime Correctional Scale Insulin Human Lispro (Humalog) 15 units SC 0800 [facility] Last Admin: 01/10/18 05:57 Dose: 15 unit Insulin Human Lispro (Humalog) 15 units SC 1200 [facility] Last Admin: 01/10/18 12:58 Dose: 15 unit Insulin Human Lispro (Humalog) 15 units SC 1700 [facility] Last Admin: 01/10/18 17:42 Dose: 15 unit Miscellaneous Medication (Pharmacy To Dose) 1 each IVPB PRN PRN PRN Reason: DIABETIC FOOT INFXN Nifedipine (Procardia Xl) 60 mg PO DAILY [facility] Last Admin: 01/10/18 08:53 Dose: 60 mg Ondansetron HCl (Zofran) 4 mg IVP Q6H PRN PRN Reason: Nausea/Vomiting Last Admin: 01/09/18 12:32 Dose: 4 mg Oxycodone HCl (Oxycodone Ir) 10 mg PO Q4H PRN PRN Reason: Pain Last Admin: 01/10/18 16:36 Dose: 10 mg Pantoprazole Sodium (Protonix) 40 mg PO DAILY [facility] Last Admin: 01/10/18 08:56 Dose: 40 mg Sodium Chloride (Flush - Normal Saline) 10 ml IVF PRN PRN PRN Reason: Saline Flush Last Admin: 01/09/18 10:59 Dose: 10 ml Tizanidine HCl (Zanaflex) 4 mg PO Q8H PRN PRN Reason: MUSCLE Pain Last Admin: 01/10/18 08:54 Dose: 4 mg Tramadol HCl (Ultram) 50 mg PO Q6H PRN PRN Reason: Pain 4-6
[2018-01-11] MEDS: Vancomycin HCl 1.5 GM in Sodium Chloride 0.9% 250 ML 300 ML IVPB SCH (01:11)
[2018-01-11] MEDS: oxyCODONE 5 MG TAB PO PRN ×5 (01:55→20:00)
[2018-01-11] MEDS: Piperacillin/Tazobactam 3.375 GM in Sodium Chloride 0.9% 100 ML IVPB SCH ×3 (05:33→22:40)
[2018-01-11 05:35] LABS: Anion Gap 14 mmol/L (10-20); BUN (Urea Nitrogen) 21 mg/dL (7.0-18.7); Calc. Creatinine Clearance 60 mL/min (70-130); Calcium 8.3 mg/dL (7.8-10.44); Carbon Dioxide 24 mmol/L (22-29); Chloride 102 mmol/L (98-107); Estimated GFR-MDRD 29; Glucose 309 mg/dL (70-105); Potassium 4.5 mmol/L (3.5-5.1); Sodium 135 mmol/L (136-145)
[2018-01-11] MEDS: Fluconazole 100 MG TAB PO SCH (08:44)
[2018-01-11] MEDS: NIFEdipine XL 60 MG TAB PO SCH (08:44)
[2018-01-11] MEDS: hydrALAZINE 25 MG TAB PO SCH ×4 (08:45→20:00)
[2018-01-11] MEDS: Carvedilol 25 MG TAB PO SCH ×2 (08:46→18:11)
[2018-01-11] MEDS: Gabapentin 300 MG CAP PO SCH ×2 (08:46→20:00)
--- NOTE | 2018-01-11 09:09 | PRG ---
DATE OF PROGRESS NOTE: 01/10/2018 HISTORY: Ms. Goldman is sitting on the bed. She is feeling well. No headaches. No shortness of christian ath or chest pain, no cough, no abdominal pain, or diarrhea. No right foot pain. PHYSICAL EXAMINATION: VITAL SIGNS: Temperature has been normal. LUNGS: Clear. HEART: S1, S2, regular rate. ABDOMEN: Soft. EXTREMITIES: Foot with less erythema in the first MPJ skin site. LABORATORY DATA: Creatinine was 1.91. The cultures revealed E. coli which is fluoroquinolone resist ant, group B strep, and methicillin-sensitive Staphylococcus aureus. At this point, we will switch her to Rocephin as Dr. Amezcua to place another Villalba catheter in the left IJ position and continue treating for a protracted period of time.
[2018-01-11] MEDS: Heparin 5,000 UNITS/ML VIAL SC SCH ×2 (10:17→20:01)
[2018-01-11] MEDS: HumaLOG 300 UNITS/3 ML VIAL SC SCH ×3 (10:17→18:13)
[2018-01-11] MEDS: Insulin Glargine 80 UNITS in Pre-Filled Syringe 1 EACH SC SCH ×2 (10:31→20:01)
[2018-01-11] MEDS ORDERED: Dextrose 5% in Water 1,000 ML IV PRN (11:18)
[2018-01-11] MEDS ORDERED: Insulin Glargine 20 UNITS in Pre-Filled Syringe 1 EACH SC SCH (11:30)
[2018-01-11 12:11] LABS: #Basophils 0.1 thou/uL (0.0-0.2); #Eosinphils 0.1 thou/uL (0.0-0.7); #Lymphocytes 3.1 thou/uL (1.20-3.40); #Monocytes 0.4 thou/uL (0.11-0.59); #Neutrophils 4.2 thou/uL (1.40-6.50); %Basophils 1.1 % (0.0-1.0); %Eosinophils 1.8 % (0.0-10.0); %Lymphocytes 38.7 % (21.0-51.0); %Monocytes 5.6 % (0.0-10.0); %Neutrophils 52.8 % (42.0-75.0); Mean Corpuscular HGB CONC 34.3 g/dL (32.0-36.0); Mean Corpuscular Hemoglobin 30.8 pg (27.0-31.0); Mean Corpuscular Volume 89.8 fL (78.0-98.0); Mean Platelet Volume 8.4 fL (7.4-10.4); Platelet Count 227 thou/uL (130-400); RBC Distribution Width 11.6 % (11.5-14.5); Red Blood Cell (RBC) Count 3.58 mill/uL (4.20-5.40); White Blood Cell (WBC) Count 7.9 thou/uL (4.8-10.8)
--- NOTE | 2018-01-11 15:44 | PRG ---
DATE OF SERVICE: 01/11/2018 SUBJECTIVE: Patient was seen and examined at bedside and overnight events noted. Patient denies any shortness of breath or chest pain or palpitation. No history of nausea or vomiting or diarrhea or f ever or chills or cramps. OBJECTIVE: GENERAL: This is an obese female in no apparent distress. VITAL SIGNS: Temperature 98.7, pulse 69, respiratory rate 12, blood pressure 154/78. HEENT: Atraumatic, normocephalic. Oral mucosa is moist. NECK: Supple. CARDIOVASCULAR: S1, S2 heard. Rate and rhythm regular. RESPIRATORY: Clear to auscultation. GASTROINTESTINAL: Abdomen is soft. MUSCULOSKELETAL: No tenderness, no edema. DERMATOLOGIC: No skin rash. NEUROLOGIC: Alert and awake and oriented x3. No focal neurologic deficits. Moving all the extremit ies. PSYCHIATRIC: Mood and affect normal. LABORATORY DATA: Potassium is 4.5, BUN is 21, creatinine is 1.9. ASSESSMENT AND PLAN: 1. Acute kidney injury on chronic kidney disease stage . 2. Hyponatremia. 3. Type 2 diabetes. 4. Sepsis. 5. Edema. 6. Hypertension, stable. 7. Renal function is stable. We will follow.
[2018-01-11] MEDS: Sodium Chloride 0.9% 1,000 ML IV SCH (16:26)
--- NOTE | 2018-01-11 17:06 | PDOC.PN ---
- Subjective Encounter Start Date: 01/11/18 Encounter Start Time: 14:00 Patient is seen today, alert and oriented. No other Concersnoted. pt waiting for Wound vac and Villalba catheter for IV abx, - Objective MAR Reviewed: Yes Vital Signs & Weight: Vital Signs (12 hours) Temp Pulse Resp BP BP Pulse Ox 01/11/18 14:14 72 137/80 01/11/18 08:57 98.7 F 69 12 154/78 H 96 01/11/18 08:45 66 159/82 H 01/11/18 08:44 66 159/82 H 01/11/18 08:00 98.7 F 69 12 Weight Admit Weight 222 lb Weight 222 lb I&O: 01/10/18 01/11/18 01/12/18 06:59 06:59 06:59 Intake Total 1950 720 Balance 1950 720 Result Diagrams: 01/11/18 11:59 01/11/18 04:55 Additional Labs: Accuchecks 01/11/18 01/11/18 01/11/18 15:04 11:07 05:52 POC Glucose 86 154 H 283 H 01/10/18 20:52 POC Glucose 319 H Radiology Reviewed by me: Yes Phys Exam - Physical Examination HEENT: PERRLA, moist MMs Neck: no nodes, no JVD Respiratory: no wheezing, no rales Cardiovascular: RRR, no significant murmur Gastrointestinal: non-tender Musculoskeletal: no edema, pulses present Neurological: non-focal, normal sensation Dx/Plan (1) GWEN (acute kidney injury) Code(s): N17.9 - ACUTE KIDNEY FAILURE, UNSPECIFIED Status: Acute Comment: Improving, continue IV fluids. (2) Diabetic foot infection Code(s): E11.628 - TYPE 2 DIABETES MELLITUS WITH OTHER SKIN COMPLICATIONS; L08.9 - LOCAL INFECTION OF THE SKIN AND SUBCUTANEOUS TISSUE, UNSP Status: Acute Comment: Right Foot Abscess on Wound vac. With IV abx with ID following. (3) Hypercholesteremia Code(s): E78.00 - PURE HYPERCHOLESTEROLEMIA, UNSPECIFIED Status: Acute (4) Hypertriglyceridemia Code(s): E78.1 - PURE HYPERGLYCERIDEMIA Status: Acute (5) Acute worsening of stage 3 chronic kidney disease Code(s): N18.3 - CHRONIC KIDNEY DISEASE, STAGE 3 (MODERATE) Status: Acute Comment: Improving now. (6) CKD (chronic kidney disease) stage 3, GFR 30-59 ml/min Status: Chronic (7) DM type 2 (diabetes mellitus, type 2) Status: Chronic Qualifiers: Comment: Pt on High dose of glargine, will reducede to 20 untis today as pt is NPO for the procedure, will restart in PM. (8) HTN (hypertension) Code(s): I10 - ESSENTIAL (PRIMARY) HYPERTENSION Status: Chronic Qualifiers: Comment: well contiroled. 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 Review of Systems - Review of Systems Eyes: negative: Pain, Vision Change, Conjunctivae Inflammation, Eyelid Inflammation, Redness, Other ENT: negative: Ear Pain, Ear Discharge, Nose Pain, Nose Discharge, Nose Congestion, Mouth Pain, Mouth Swelling, Throat Pain, Throat Swelling, Other Respiratory: negative: Cough, Dry, Shortness of Breath, Hemoptysis, SOB with Excertion, Pleuritic Pain, Sputum, Wheezing Cardiovascular: negative: chest pain, palpitations, orthopnea, paroxysmal nocturnal dyspnea, edema, light headedness, other Gastrointestinal: negative: Nausea, Vomiting, Abdominal Pain, Diarrhea, Constipation, Melena, Hematochezia, Other Genitourinary: negative: Dysuria, Frequency, Incontinence, Hematuria, Retention , Other Musculoskeletal: negative: Neck Pain, Shoulder Pain, Arm Pain, Back Pain, Hand Pain, Leg Pain, Foot Pain, Other - Medications/Allergies Allergies/Adverse Reactions: Allergies Allergy/AdvReac Type Severity Reaction Status Date / Time ciprofloxacin Allergy Verified 01/06/18 04:15 lisinopril Allergy Anaphylaxis Verified 01/06/18 04:15 Medications: Current Medications Atorvastatin Calcium (Lipitor) 80 mg PO HS [facility] Last Admin: 01/10/18 20:53 Dose: 80 mg Carvedilol (Coreg) 25 mg PO BID-WM [facility] Last Admin: 01/11/18 08:46 Dose: 25 mg Dextrose/Water (Dextrose 50%) 25 gm SLOW IVP PRN PRN PRN Reason: Hypoglycemia Fluconazole (Diflucan) 100 mg PO DAILY [facility] Last Admin: 01/11/18 08:44 Dose: 100 mg Gabapentin (Neurontin) 300 mg PO BID [facility] Last Admin: 01/11/18 08:46 Dose: 300 mg Glucagon (Glucagon) 1 mg IM PRN PRN PRN Reason: Hypoglycemia Glucagon (Glucagon) 1 mg IM PRN PRN PRN Reason: HYPOGLYCEMIA PROTOCOL Heparin Sodium (Porcine) (Heparin) 5,000 units SC BID [facility] Last Admin: 01/11/18 10:17 Dose: Not Given Hydralazine HCl (Apresoline) 5 mg SLOW IVP Q6H PRN PRN Reason: SBP Greater Than 180 Last Admin: 01/10/18 01:17 Dose: 5 mg Hydralazine HCl (Apresoline) 25 mg PO QID [facility] Last Admin: 01/11/18 14:14 Dose: 25 mg Piperacillin Sod/Tazobactam (Sod 3.375 gm/ Sodium Chloride) 100 mls @ 200 mls/ hr IVPB Q6HR [facility] Last Admin: 01/11/18 16:23 Dose: 100 mls Insulin Glargine 80 units/ (Miscellaneous Medication) 0.8 mls @ 0 mls/hr SC BID [facility] Last Admin: 01/11/18 10:31 Dose: 0.2 mls Vancomycin HCl 1.5 gm/ Sodium (Chloride) 300 mls @ 200 mls/hr IVPB 0100 [facility] Last Admin: 01/11/18 01:11 Dose: Not Given Sodium Chloride (Normal Saline 0.9%) 1,000 mls @ 50 mls/hr IV .Q20H [facility] Last Admin: 01/11/18 16:26 Dose: 1,000 mls Dextrose/Water (D5w) 1,000 mls @ 0 mls/hr IV .Q0M PRN; As Directed PRN Reason: Hypoglycemia Dextrose/Water (D5w) 1,000 mls @ 0 mls/hr IV INF PRN; As Directed PRN Reason: HYPOGLYCEMIA PROTOCOL Insulin Human Lispro (Humalog) 0 units SC .BEDTIME SLIDING SC PRN PRN Reason: Bedtime Correctional Scale Last Admin: 01/10/18 21:01 Dose: 4 unit Insulin Human Lispro (Humalog) 15 units SC 0800 [facility] Last Admin: 01/11/18 10:17 Dose: Not Given Insulin Human Lispro (Humalog) 15 units SC 1200 [facility] Last Admin: 01/11/18 15:50 Dose: Not Given Insulin Human Lispro (Humalog) 15 units SC 1700 [facility] Last Admin: 01/10/18 17:42 Dose: 15 unit Insulin Human Lispro (Humalog) 0 units SC .MODERATE SLIDING SC PRN; Protocol PRN Reason: MODERATE SLIDING SCALE Miscellaneous Medication (Pharmacy To Dose) 1 each IVPB PRN PRN PRN Reason: DIABETIC FOOT INFXN Nifedipine (Procardia Xl) 60 mg PO DAILY [facility] Last Admin: 01/11/18 08:44 Dose: 60 mg Ondansetron HCl (Zofran) 4 mg IVP Q6H PRN PRN Reason: Nausea/Vomiting Last Admin: 01/09/18 12:32 Dose: 4 mg Oxycodone HCl (Oxycodone Ir) 10 mg PO Q4H PRN PRN Reason: Pain Last Admin: 01/11/18 15:08 Dose: 10 mg Pantoprazole Sodium (Protonix) 40 mg PO DAILY [facility] Last Admin: 01/11/18 08:46 Dose: 40 mg Sodium Chloride (Flush - Normal Saline) 10 ml IVF PRN PRN PRN Reason: Saline Flush Last Admin: 01/09/18 10:59 Dose: 10 ml Tizanidine HCl (Zanaflex) 4 mg PO Q8H PRN PRN Reason: MUSCLE Pain Last Admin: 01/10/18 20:54 Dose: 4 mg Tramadol HCl (Ultram) 50 mg PO Q6H PRN PRN Reason: Pain 4-6
[2018-01-11] MEDS: tiZANidine HCl 4 MG TAB PO PRN (20:00)
[2018-01-11] MEDS: Atorvastatin Calcium 40 MG TAB PO SCH (20:00)
[2018-01-11] MEDS: HumaLOG 300 UNITS/3 ML VIAL SC PRN (22:39)
[2018-01-11] MEDS: traMADol HCl 50 MG TAB PO PRN (22:45)
[2018-01-12] MEDS: oxyCODONE 5 MG TAB PO PRN ×6 (00:21→22:55)
[2018-01-12] MEDS: Vancomycin HCl 1.5 GM in Sodium Chloride 0.9% 250 ML 300 ML IVPB SCH (00:22)
[2018-01-12 01:02] LABS: Vancomycin, Trough 8.1 ug/mL
[2018-01-12] MEDS: HumaLOG 300 UNITS/3 ML VIAL SC PRN ×2 (04:52→23:03)
[2018-01-12] MEDS: Piperacillin/Tazobactam 3.375 GM in Sodium Chloride 0.9% 100 ML IVPB SCH ×4 (04:55→22:57)
[2018-01-12] MEDS: NIFEdipine XL 60 MG TAB PO SCH (08:24)
[2018-01-12] MEDS: Carvedilol 25 MG TAB PO SCH ×2 (08:24→17:10)
[2018-01-12] MEDS: Fluconazole 100 MG TAB PO SCH (08:24)
[2018-01-12] MEDS: hydrALAZINE 25 MG TAB PO SCH ×4 (08:25→22:55)
[2018-01-12] MEDS: Gabapentin 300 MG CAP PO SCH ×2 (08:25→22:55)
[2018-01-12] MEDS: Insulin Glargine 80 UNITS in Pre-Filled Syringe 1 EACH SC SCH (08:25)
[2018-01-12] MEDS: Heparin 5,000 UNITS/ML VIAL SC SCH ×2 (08:25→22:55)
[2018-01-12] MEDS: HumaLOG 300 UNITS/3 ML VIAL SC SCH ×3 (08:27→17:11)
[2018-01-12] MEDS: Ondansetron HCl/PF 4 MG/2 ML Vial IVP PRN (15:36)
--- NOTE | 2018-01-12 15:48 | PDOC.PN ---
- Subjective Encounter Start Date: 01/12/18 Encounter Start Time: 13:00 Patient is seen today, alert and oriented. She is upset her Procedure iss cheduled for sunday,. - Objective MAR Reviewed: Yes Vital Signs & Weight: Vital Signs (12 hours) Temp Pulse Resp BP BP Pulse Ox 01/12/18 12:32 99 F 83 16 150/83 H 99 01/12/18 12:30 75 150/83 H 01/12/18 11:05 98.8 F 78 16 149/79 H 94 L 01/12/18 08:37 98.1 F 69 16 97 01/12/18 08:25 69 143/80 H 01/12/18 08:24 69 143/80 H 01/12/18 07:56 98.1 F 69 16 143/80 H 97 Weight Admit Weight 222 lb Weight 222 lb I&O: 01/11/18 01/12/18 01/13/18 06:59 06:59 06:59 Intake Total 720 Balance 720 Result Diagrams: 01/11/18 11:59 01/11/18 04:55 Additional Labs: Accuchecks 01/12/18 01/12/18 01/11/18 11:06 04:22 20:44 POC Glucose 292 H 332 H 442 H 01/11/18 16:32 POC Glucose 193 H Radiology Reviewed by me: Yes Phys Exam - Physical Examination HEENT: PERRLA, moist MMs Neck: no nodes, no JVD Respiratory: no wheezing, no rales Cardiovascular: RRR, no significant murmur Gastrointestinal: soft, non-tender Musculoskeletal: no edema, pulses present Neurological: non-focal, normal sensation Lymphatic: no nodes Dx/Plan (1) GWEN (acute kidney injury) Code(s): N17.9 - ACUTE KIDNEY FAILURE, UNSPECIFIED Status: Acute Comment: Improving, continue IV fluids. (2) Diabetic foot infection Code(s): E11.628 - TYPE 2 DIABETES MELLITUS WITH OTHER SKIN COMPLICATIONS; L08.9 - LOCAL INFECTION OF THE SKIN AND SUBCUTANEOUS TISSUE, UNSP Status: Acute Comment: Right Foot Abscess on Wound vac. With IV abx with ID following. Planned for [facility] Sunday for IV Abx. (3) Hypercholesteremia Code(s): E78.00 - PURE HYPERCHOLESTEROLEMIA, UNSPECIFIED Status: Acute (4) Hypertriglyceridemia Code(s): E78.1 - PURE HYPERGLYCERIDEMIA Status: Acute (5) Acute worsening of stage 3 chronic kidney disease Code(s): N18.3 - CHRONIC KIDNEY DISEASE, STAGE 3 (MODERATE) Status: Acute Comment: Improving now. (6) CKD (chronic kidney disease) stage 3, GFR 30-59 ml/min Status: Chronic (7) DM type 2 (diabetes mellitus, type 2) Status: Chronic Qualifiers: Comment: Pt on High dose of glargine, Will use it cautiously as patient is not on her usual diet. Will cut down her Lantus dose to 40 untis BID. (8) HTN (hypertension) Code(s): I10 - ESSENTIAL (PRIMARY) HYPERTENSION Status: Chronic Qualifiers: Comment: well contiroled. 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 Review of Systems - Review of Systems Eyes: negative: Pain, Vision Change, Conjunctivae Inflammation, Eyelid Inflammation, Redness, Other ENT: negative: Ear Pain, Ear Discharge, Nose Pain, Nose Discharge, Nose Congestion, Mouth Pain, Mouth Swelling, Throat Pain, Throat Swelling, Other Respiratory: negative: Cough, Dry, Shortness of Breath, Hemoptysis, SOB with Excertion, Pleuritic Pain, Sputum, Wheezing Cardiovascular: negative: chest pain, palpitations, orthopnea, paroxysmal nocturnal dyspnea, edema, light headedness, other Gastrointestinal: negative: Nausea, Vomiting, Abdominal Pain, Diarrhea, Constipation, Melena, Hematochezia, Other Genitourinary: negative: Dysuria, Frequency, Incontinence, Hematuria, Retention , Other Musculoskeletal: negative: Neck Pain, Shoulder Pain, Arm Pain, Back Pain, Hand Pain, Leg Pain, Foot Pain, Other - Medications/Allergies Allergies/Adverse Reactions: Allergies Allergy/AdvReac Type Severity Reaction Status Date / Time ciprofloxacin Allergy Verified 01/06/18 04:15 lisinopril Allergy Anaphylaxis Verified 01/06/18 04:15 Medications: Current Medications Atorvastatin Calcium (Lipitor) 80 mg PO [facility] Last Admin: 01/11/18 20:00 Dose: 80 mg Carvedilol (Coreg) 25 mg PO BID[facility] Last Admin: 01/12/18 08:24 Dose: 25 mg Dextrose/Water (Dextrose 50%) 25 gm SLOW IVP PRN PRN PRN Reason: Hypoglycemia Fluconazole (Diflucan) 100 mg PO DAILY [facility] Last Admin: 01/12/18 08:24 Dose: 100 mg Gabapentin (Neurontin) 300 mg PO BID [facility] Last Admin: 01/12/18 08:25 Dose: 300 mg Glucagon (Glucagon) 1 mg IM PRN PRN PRN Reason: HYPOGLYCEMIA PROTOCOL Heparin Sodium (Porcine) (Heparin) 5,000 units SC BID [facility] Last Admin: 01/12/18 08:25 Dose: 5,000 units Hydralazine HCl (Apresoline) 5 mg SLOW IVP Q6H PRN PRN Reason: SBP Greater Than 180 Last Admin: 01/10/18 01:17 Dose: 5 mg Hydralazine HCl (Apresoline) 25 mg PO QID [facility] Last Admin: 01/12/18 12:30 Dose: 25 mg Insulin Glargine 80 units/ (Miscellaneous Medication) 0.8 mls @ 0 mls/hr SC BID [facility] Last Admin: 01/12/18 08:25 Dose: 0.8 mls Vancomycin HCl 1.5 gm/ Sodium (Chloride) 300 mls @ 200 mls/hr IVPB 0100 [facility] Last Admin: 01/12/18 00:22 Dose: 300 mls Sodium Chloride (Normal Saline 0.9%) 1,000 mls @ 50 mls/hr IV .Q20H [facility] Last Admin: 01/11/18 16:26 Dose: 1,000 mls Dextrose/Water (D5w) 1,000 mls @ 0 mls/hr IV INF PRN; As Directed PRN Reason: HYPOGLYCEMIA PROTOCOL Piperacillin Sod/Tazobactam (Sod 3.375 gm/ Sodium Chloride) 100 mls @ 200 mls/ hr IVPB 0400,1000,1600,2200 [facility] Last Admin: 01/12/18 10:39 Dose: 100 mls Insulin Human Lispro (Humalog) 0 units SC .BEDTIME SLIDING SC PRN PRN Reason: Bedtime Correctional Scale Last Admin: 01/11/18 22:39 Dose: 5 unit Insulin Human Lispro (Humalog) 15 units SC 0800 [facility] Last Admin: 01/12/18 08:27 Dose: 15 unit Insulin Human Lispro (Humalog) 15 units SC 1200 [facility] Last Admin: 01/12/18 11:35 Dose: 15 unit Insulin Human Lispro (Humalog) 15 units SC 1700 [facility] Last Admin: 01/11/18 18:13 Dose: 15 unit Insulin Human Lispro (Humalog) 0 units SC .MODERATE SLIDING SC PRN; Protocol PRN Reason: MODERATE SLIDING SCALE Last Admin: 01/12/18 04:52 Dose: 8 unit Miscellaneous Medication (Pharmacy To Dose) 1 each IVPB PRN PRN PRN Reason: DIABETIC FOOT INFXN Nifedipine (Procardia Xl) 60 mg PO DAILY [facility] Last Admin: 01/12/18 08:24 Dose: 60 mg Ondansetron HCl (Zofran) 4 mg IVP Q6H PRN PRN Reason: Nausea/Vomiting Last Admin: 01/12/18 15:36 Dose: 4 mg Oxycodone HCl (Oxycodone Ir) 10 mg PO Q4H PRN PRN Reason: Pain Last Admin: 01/12/18 12:29 Dose: 10 mg Pantoprazole Sodium (Protonix) 40 mg PO DAILY [facility] Last Admin: 01/12/18 08:24 Dose: 40 mg Sodium Chloride (Flush - Normal Saline) 10 ml IVF PRN PRN PRN Reason: Saline Flush Last Admin: 01/09/18 10:59 Dose: 10 ml Tizanidine HCl (Zanaflex) 4 mg PO Q8H PRN PRN Reason: MUSCLE Pain Last Admin: 01/11/18 20:00 Dose: 4 mg Tramadol HCl (Ultram) 50 mg PO Q6H PRN PRN Reason: Pain 4-6 Last Admin: 01/11/18 22:45 Dose: 50 mg
--- NOTE | 2018-01-12 16:06 | PRG ---
DATE OF SERVICE: 01/12/2018 SUBJECTIVE: Patient was seen and examined at bedside and overnight events noted. Patient denies any shortness of breath or chest pain or palpitation. No history of nausea or vomiting or diarrhea or f ever or chills or cramps. OBJECTIVE: GENERAL: This is an obese female in no apparent distress. VITAL SIGNS: Temperature 99.0, pulse 82, respiration 16, blood pressure 150/83. HEENT: Atraumatic, normocephalic. Oral mucosa is moist. NECK: Supple. CARDIOVASCULAR: S1, S2 heard. Rate and rhythm regular. RESPIRATORY: Clear to auscultation. GASTROINTESTINAL: Abdomen is soft. MUSCULOSKELETAL: No tenderness, no edema. DERMATOLOGIC: No skin rash. NEUROLOGIC: Alert and awake and oriented x3. No focal neurologic deficits. Moving all the extremit ies. PSYCHIATRIC: Mood and affect normal. LABORATORY DATA: No labs done today. ASSESSMENT AND PLAN: 1. Acute kidney injury on chronic kidney disease stage 3, stable. 2. Hyponatremia, limit fluid intake. 3. Type 2 diabetes. 4. Sepsis. 5. Edema, stable. 6. Hypertension, stable. Recheck labs. Avoid nephrotoxins.
[2018-01-12] MEDS: Sodium Chloride 0.9% 1,000 ML IV SCH ×2 (17:08→22:57)
[2018-01-12] MEDS: Atorvastatin Calcium 40 MG TAB PO SCH (22:55)
[2018-01-12] MEDS: Insulin Glargine 40 UNITS in Pre-Filled Syringe 1 EACH SC SCH (22:55)
[2018-01-13] MEDS: Vancomycin HCl 1.5 GM in Sodium Chloride 0.9% 250 ML 300 ML IVPB SCH (00:21)
[2018-01-13] MEDS: oxyCODONE 5 MG TAB PO PRN ×4 (02:59→20:13)
[2018-01-13] MEDS: Piperacillin/Tazobactam 3.375 GM in Sodium Chloride 0.9% 100 ML IVPB SCH ×4 (03:53→21:18)
[2018-01-13] MEDS: HumaLOG 300 UNITS/3 ML VIAL SC PRN ×2 (05:44→21:20)
[2018-01-13] MEDS: Insulin Glargine 40 UNITS in Pre-Filled Syringe 1 EACH SC SCH (08:31)
[2018-01-13] MEDS: Fluconazole 100 MG TAB PO SCH (08:32)
[2018-01-13] MEDS: NIFEdipine XL 60 MG TAB PO SCH (08:32)
[2018-01-13] MEDS: Gabapentin 300 MG CAP PO SCH ×2 (08:33→21:19)
[2018-01-13] MEDS: hydrALAZINE 25 MG TAB PO SCH ×4 (08:33→21:19)
[2018-01-13] MEDS: Carvedilol 25 MG TAB PO SCH ×2 (08:33→16:19)
[2018-01-13] MEDS: Heparin 5,000 UNITS/ML VIAL SC SCH ×2 (08:36→21:19)
[2018-01-13] MEDS: HumaLOG 300 UNITS/3 ML VIAL SC SCH ×3 (08:37→16:19)
[2018-01-13] MEDS: traMADol HCl 50 MG TAB PO PRN (11:39)
[2018-01-13] MEDS: hydrALAZINE 20 MG/ML VIAL SLOW IVP PRN (11:42)
--- NOTE | 2018-01-13 13:03 | PDOC.PN ---
- Subjective Encounter Start Date: 01/13/18 Encounter Start Time: 13:00 Subjective: f/u for R foot DM neuropathic ulcer s/p debridement on current Zosyn -: and Vanc. Plan for Villalba catheter placement 01/14. No new complaints. - Objective MAR Reviewed: Yes Vital Signs & Weight: Vital Signs (12 hours) Temp Pulse Resp BP BP Pulse Ox 01/13/18 11:42 93 180/96 H 01/13/18 11:24 99.1 F 93 16 180/96 H 95 01/13/18 08:35 98.9 F 89 16 94 L 01/13/18 08:33 89 176/91 H 01/13/18 08:32 89 176/91 H 01/13/18 07:04 98.9 F 89 16 166/84 H 94 L Weight Admit Weight 222 lb Weight 222 lb I&O: 01/12/18 01/13/18 01/14/18 06:59 06:59 06:59 Intake Total 1420 Balance 1420 Result Diagrams: 01/11/18 11:59 01/11/18 04:55 Additional Labs: Accuchecks 01/13/18 01/13/18 01/12/18 11:15 05:45 20:44 POC Glucose 203 H 318 H 336 H 01/12/18 16:26 POC Glucose 307 H Microbiology 01/06/18 02:21 Venous blood - Left Arm Blood Culture - Final NO GROWTH IN 5 DAYS 01/05/18 23:50 Foot - Right Bacterial Culture - Final Escherichia coli Streptococcus agalactiae Gp. B Staphylococcus aureus 01/05/18 23:37 Venous blood - Left Hand Blood Culture - Final NO GROWTH IN 5 DAYS 01/05/18 23:31 Venous blood - Right Arm Blood Culture - Final NO GROWTH IN 5 DAYS Laboratory Tests 09/04/17 09/04/17 09/05/17 16:20 16:20 02:30 ESR Westergren 37 H Creatinine Hemoglobin A1c C-Reactive Protein 0.78 H Vancomycin Trough Urine Opiates Screen Detected H U Cocaine Metab Screen Detected H 09/05/17 01/07/18 01/08/18 03:01 04:22 00:11 ESR Westergren Creatinine 2.52 H Hemoglobin A1c 7.7 H 9.4 H C-Reactive Protein Vancomycin Trough Urine Opiates Screen U Cocaine Metab Screen 0701/10/18 01/12/18 04:48 09:04 00:35 ESR Westergren Creatinine 2.41 H 1.91 H Hemoglobin A1c C-Reactive Protein Vancomycin Trough 8.1 Urine Opiates Screen U Cocaine Metab Screen Phys Exam - Physical Examination Constitutional: NAD HEENT: PERRLA, sclera anicteric, oral pharynx no lesions Neck: no nodes, no JVD, supple, full ROM Respiratory: no wheezing, no rales, no rhonchi, clear to auscultation bilateral Cardiovascular: RRR, no significant murmur, no rub, gallop Gastrointestinal: soft, non-tender, no distention, positive bowel sounds R foot with wound vac in place with dressings noted Musculoskeletal: pulses present Neurological: normal sensation, moves all 4 limbs Psychiatric: normal affect, A&O x 3 Skin: no rash, normal turgor, cap refill <2 seconds Dx/Plan (1) Diabetic foot infection Code(s): E11.628 - TYPE 2 DIABETES MELLITUS WITH OTHER SKIN COMPLICATIONS; L08.9 - LOCAL INFECTION OF THE SKIN AND SUBCUTANEOUS TISSUE, UNSP Status: Acute Comment: Polymicrobial DM wound/ulcer s/p debridement, continue Zosyn and Vancomycin, may de-escalate converage for intermediate mgmt (2) Acute worsening of stage 3 chronic kidney disease Code(s): N18.3 - CHRONIC KIDNEY DISEASE, STAGE 3 (MODERATE) Status: Acute Comment: Near baseline renal function currently (3) DM type 2 (diabetes mellitus, type 2) Status: Chronic Qualifiers: Comment: Increase Lantus 50u BID, ISS, ADA, A1C - 9.3 (4) HTN (hypertension) Code(s): I10 - ESSENTIAL (PRIMARY) HYPERTENSION Status: Chronic Qualifiers: Comment: Labile, continue to monitor trend and titrate antihypertensive regimen - Plan continue antibiotics, PT/OT, director of social work Stable currently -: Continue Vanc/Zosyn IV -: Plan for Villalba catheter placement in am -: WCT for local care or wound vac -: AM lab: BMP * Likely home after catheter placement 01/14/18
--- NOTE | 2018-01-13 13:05 | PRG ---
DATE OF SERVICE: 01/13/2018 SUBJECTIVE: Patient was seen and examined at bedside and overnight events noted. Patient denies any shortness of breath or chest pain or palpitation. No history of nausea or vomiting or diarrhea or fever or chills or cramps. OBJECTIVE: GENERAL: This is an obese female in no apparent distress. VITAL SIGNS: Temperature 99.1, pulse 93, respirations 16, blood pressure 180/96. HEENT: Atraumatic, normocephalic. Oral mucosa is moist. NECK: Supple. CARDIOVASCULAR: S1 and S2 heard. Rate and rhythm regular. RESPIRATORY: Clear to auscultation. GASTROINTESTINAL: Abdomen is soft. MUSCULOSKELETAL: No tenderness. No edema. DERMATOLOGIC: No skin rash. NEUROLOGIC: Alert and awake and oriented x3. No focal neurologic deficits. Moving all the extremit ies. PSYCHIATRIC: Mood and affect normal. LABORATORY DATA: Not done today. ASSESSMENT AND PLAN: 1. Acute kidney injury. Recheck laboratories in the morning. 2. Chronic kidney, stage 3. 3. Type 2 diabetes. 4. Edema. 5. Hypertension. 6. Hyponatremia. Recheck laboratories. Plan is to recheck labs in the morning.
[2018-01-13] MEDS: Sodium Chloride 0.9% 1,000 ML IV SCH (16:25)
[2018-01-13] MEDS: Atorvastatin Calcium 40 MG TAB PO SCH (21:18)
[2018-01-13] MEDS: tiZANidine HCl 4 MG TAB PO PRN (21:19)
[2018-01-13] MEDS: Insulin Glargine 50 UNITS in Pre-Filled Syringe 1 EACH SC SCH (21:19)
[2018-01-14] MEDS: oxyCODONE 5 MG TAB PO PRN ×3 (00:36→17:18)
[2018-01-14 01:23] LABS: Vancomycin, Trough 13.4 ug/mL
[2018-01-14] MEDS: Vancomycin HCl 1.5 GM in Sodium Chloride 0.9% 250 ML 300 ML IVPB SCH (01:52)
[2018-01-14] MEDS ORDERED: Vancomycin HCl 1.75 GM in Sodium Chloride 0.9% 500 ML IVPB SCH (02:00)
[2018-01-14 03:35] LABS: Anion Gap 13 mmol/L (10-20); BUN (Urea Nitrogen) 21 mg/dL (7.0-18.7); Calc. Creatinine Clearance 64 mL/min (70-130); Calcium 8.9 mg/dL (7.8-10.44); Carbon Dioxide 24 mmol/L (22-29); Chloride 102 mmol/L (98-107); Estimated GFR-MDRD 31; Glucose 301 mg/dL (70-105); Potassium 4.5 mmol/L (3.5-5.1); Sodium 134 mmol/L (136-145)
[2018-01-14] MEDS: Piperacillin/Tazobactam 3.375 GM in Sodium Chloride 0.9% 100 ML IVPB SCH ×4 (04:26→19:01)
[2018-01-14] MEDS: Carvedilol 25 MG TAB PO SCH ×2 (05:55→17:19)
[2018-01-14] MEDS: HumaLOG 300 UNITS/3 ML VIAL SC SCH ×3 (08:54→17:19)
[2018-01-14] MEDS: Insulin Glargine 50 UNITS in Pre-Filled Syringe 1 EACH SC SCH (08:55)
[2018-01-14] MEDS: Heparin 5,000 UNITS/ML VIAL SC SCH (08:56)
[2018-01-14] MEDS: Gabapentin 300 MG CAP PO SCH (10:00)
[2018-01-14] MEDS: hydrALAZINE 25 MG TAB PO SCH ×3 (10:00→17:18)
--- NOTE | 2018-01-14 11:10 | PRG ---
DATE OF SERVICE: 01/14/2018. SUBJECTIVE: This is a 42-year-old female being seen for acute kidney injury. The patient denied any nausea, vomiting or chest pain. PHYSICAL EXAMINATION: GENERAL: Patient is awake, alert. VITAL SIGNS: Afebrile, pulse 76, breathing at 16, blood pressure was 127/75. OBJECTIVE: See above. Awake, alert, in no acute distress. GENERAL APPEARANCE AND MENTAL STATUS: Fair. HEAD/NECK: Normocephalic. Atraumatic. EYES: EOMI. No deformity. EARS: Clear. No ulcers. NOSE: Intact. No lesions. MOUTH: Clear. No discharge. THROAT: Clear. No exudate. LUNGS: Clear. No crackles. CARDIAC: S1, S2. No rub. ABDOMEN: Benign. BS+. GENITALIA/RECTUM: [place] absent. BACK/EXTREMITIES: Edema 0+ Ulcer- NEUROLOGICAL: Alert and motor intact. SKIN: Rash- Bruise- LYMPHATICS: Edema- Ulcer- LABORATORY: Creatinine is 1.7. ASSESSMENT AND RECOMMENDATIONS: 1. Acute kidney injury, improved. 2. Hypertension, stable. 3. Anemia, stable. 4. Medication based on glomerular filtration rate are appropriate. No indication for dialysis. 5. Hyponatremia, stable.
[2018-01-14] MEDS ORDERED: Fentanyl 100 MCG/2 ML VIAL ONE ×3 (11:55→13:25)
[2018-01-14] MEDS ORDERED: Propofol 500 MG/50 ML VIAL ONE (12:07)
[2018-01-14] MEDS ORDERED: Bupivacaine HCl 0.5%/Epinephrine 1:200,000/PF 30 ml Vial ONE (12:08)
[2018-01-14] MEDS ORDERED: Lidocaine 2% 10 ML INJ ONE (12:08)
[2018-01-14] MEDS ORDERED: Promethazine HCl 25 MG/ML VIAL SLOW IVP PRN (13:03)
[2018-01-14] MEDS ORDERED: Promethazine HCl 25 MG/ML VIAL IM PRN (13:03)
[2018-01-14] MEDS ORDERED: HYDROmorphone 2 MG/ML VIAL SLOW IVP PRN (13:03)
[2018-01-14] MEDS ORDERED: Meperidine HCl/PF 25 MG/ML VIAL SLOW IVP PRN (13:03)
[2018-01-14] MEDS ORDERED: Ondansetron HCl/PF 4 MG/2 ML Vial IVP PRN (13:03)
--- NOTE | 2018-01-14 13:37 | OP ---
DATE OF PROCEDURE: 01/06/2018 PREOPERATIVE DIAGNOSES: Diabetic foot infection and need of long-term intravenous antibiotics, chron ic kidney disease. PROCEDURE: Right IJ cuffed tunnel Villalba catheter. Fluoroscopy ultrasound used. SURGEON: Dr. Devendra Amezcua ANESTHESIA: TIVA Local 0.5% Marcaine with epinephrine 30 mL mixed with 2% Xylocaine, 10 mL. PROCEDURE: The patient was taken to the operating room where under intravenous sedation, neck and ch est prepped with ChloraPrep, draped in routine fashion. Local anesthetic 0.5% Marcaine with epinephr ine, 30 mL, mixed with 2% Xylocaine, 10 mL infiltrated into skin and subcutaneous tissue about the op erative site. Under ultrasound guidance, the internal jugular vein was cannulated with a trocar cath eter. J-wire threaded. Trocar catheter removed. Skin incised and enlarged sharply. Stab incision made over the right chest and using the tunneling device, the dual lumen Villalba catheter tunneled be tween 2 incisions, placing the fabric cuff beneath the skin exit site and catheter secured with 2 int errupted sutures of 3-0 nylon and Biopatch sterile dressing applied. Dilator and pull-away sheath pl aced over the J-wire into the superior vena cava and dilator and J-wire removed. Catheter placed wit h pull-away sheath. Pull-away sheath removed. Catheter had been tailored to length. Fluoroscopic c atheter noted to be in good position. Each port aspirated blood and flushed with saline solution and heparinized. The skin incision approximated by approximating the platysma with 4-0 Monocryl, skin w ith subdermal 4-0 Monocryl and DermaGlue applied. The patient tolerated the procedure well.
[2018-01-14] MEDS ORDERED: Lidocaine 1% PF 5 ML VIAL ONE (13:41)
[2018-01-14] MEDS ORDERED: PROPOFOL 200 MG/20 ML VIAL ONE (13:41)
[2018-01-14] MEDS: Sodium Chloride 0.9% 1,000 ML IV SCH (15:01)
--- NOTE | 2018-01-14 15:19 | RAD ---
UPRIGHT PORTABLE FRONTAL CHEST RADIOGRAPH: Date: 01-14-18 Comparison: 07-23-17 History: Central line placement. FINDINGS: There is a right sided vascular catheter, tip overlying the region of the SVC. Heart and mediastinal contours are stable. No lobar consolidation or alveolar edema. No pneumothorax noted. IMPRESSION: No acute findings. POS: [facility]
[2018-01-14] MEDS: Fluconazole 100 MG TAB PO SCH (15:36)
[2018-01-14] MEDS: NIFEdipine XL 60 MG TAB PO SCH (15:36)
[2018-01-14] MEDS: traMADol HCl 50 MG TAB PO PRN (15:37)
[2018-01-14 19:00] VITALS: BP 130/94; TEMP 98.2
--- NOTE | 2018-01-15 00:31 | DIS ---
DATE OF ADMISSION: 01/06/2018 DATE OF DISCHARGE: 01/14/2018 DISCHARGE DIAGNOSES: 1. Right foot diabetic neuropathic ulcer, status post debridement. 2. Acute kidney injury on chronic kidney disease, stage 3. 3. Diabetes mellitus type 2 with peripheral neuropathy and diabetic foot ulcer. 4. Hypertension, stable. 5. Status post right internal jugular cuffed tunneled Villalba catheter placement on 01/14/2018. CONSULTATIONS: Dr. Amezcua with general surgery service; Dr. Russell with infectious disease service; Deidra Hartley and Dr. Sutton with nephrology service. PERTINENT LABORATORY DATA AND X-RAY FINDINGS: Creatinine ranged between 1.79 to 2.52, estimated GFR ranging between 21 to 31. Hemoglobin A1c 9.4. CRP 4.85, total cholesterol 270, triglycerides 520, H DL 38, LDL not calculated. CBC showed a white blood cell count of 7.9, hemoglobin 11, hematocrit 32, platelet count 227. ESR 38. Blood cultures x2 from 01/05/2018 showed no growth at 5 days. Right f oot wound culture dated 01/05/2018 showed E. coli, group B strep and Staphylococcus species, methicil gentry-sensitive. Blood cultures x1 dated 01/06/2018 showed no growth at 5 days. MRI of the right foot dated 01/07/2018 showed large plantar based wound under the great toe at the metatarsophalangeal tami nt with changes consistent with osteomyelitis involving the great toe and tibial sesamoid region. Di ffuse edema within the subcutaneous tissues of the foot secondary to lymphedema/cellulitis. HOSPITAL COURSE: Patient was admitted to the medical floor after presenting with right foot at the f irst metatarsophalangeal joint, neuropathic ulcer in the context of diabetes mellitus type 2. Jose Miguel bonilla underwent evaluation including MRI showing questionable osteomyelitis of the sesamoid bone. Jose Miguel bonilla underwent evaluation by the General Surgery Service with recommendations to pursue debridement of t he wound occurring on 01/08/2018 of a neuropathic ulcer. Patient continued on broad-spectrum IV anti biotic therapy including vancomycin and Zosyn and was evaluated by the Infectious Disease Service for determination of long-term IV antibiotic therapy. Wound cultures of the right toe and foot region s howed polymicrobial species including group B strep, Staphylococcus species, and E. coli. Recommenda tions are to transition to Rocephin 2 grams IV daily for approximately 4 weeks' duration receiving lo sean wound care including wound VAC application on discharge. Patient underwent placement of a right internal jugular Villalba catheter on 01/14/2018 to help facilitate administration of IV Rocephin on d ischarge. I have examined the patient at the time of discharge and discuss followup instructions and recommendations. Patient verbalized understanding and agreement and ready for discharge on 01/15/20 18. DISCHARGE MEDICATIONS: 1. Rocephin 2 grams IV daily until 02/11/2018. 2. Carvedilol 25 mg p.o. b.i.d. 3. Nexium 20 mg p.o. daily. 4. Gabapentin 300 mg p.o. t.i.d. 5. Humalog 15 units subcutaneously t.i.d. with meals. 6. Hydrochlorothiazide 12.5 mg p.o. daily. 7. Levemir 50 units subcutaneously b.i.d. 8. Cozaar 50 mg p.o. daily. 9. Metformin 1000 mg p.o. b.i.d. 10. Tizanidine 4 mg p.o. q.8 hours p.r.n. 11. Ultram 50 mg p.o. every 6 hours p.r.n. pain. FOLLOWUP: Patient may follow up with her primary care provider, Dr. Indiana King within 7 days of discharge. Patient may follow up with Dr. Julito Russell with Infectious Disease Service and to call his office for appointment time and date. SPECIAL INSTRUCTIONS: Patient will follow up with [facility] outpatient services for infusion of Rocephin 2 grams IV daily. Patient will follow up with [facility] for wound evaluation and exchange of wound VAC therapy. CONDITION ON DISCHARGE: Stable. ACTIVITY: Ad-aurora. DIET: ADA and heart-healthy. CODE STATUS: FULL. DISPOSITION: Home on 01/14/2018. Total time preparing and coordinating discharge 38 minutes.
== END 2018-01-14 19:45 | disposition home or self-care (01) | DRG 623 ==
LOC: ERS 01:55 → T4-A 02:17
PROVIDERS: ADMIT Hospitalist; ATTEND Hospitalist
PROC: 05HM33Z Insertion of Infusion Device into Right Internal Jugular Vein, Percutaneous Approach (ICD-10-PCS; 2018-01-06)
PROC: B513ZZA Fluoroscopy of Right Jugular Veins, Guidance (ICD-10-PCS; 2018-01-06)
PROC: 0JBQ0ZZ Excision of Right Foot Subcutaneous Tissue and Fascia, Open Approach (ICD-10-PCS; principal; 2018-01-08)
DX: E11.621 Type 2 diabetes mellitus with foot ulcer (principal); E87.1 Hypo-osmolality and hyponatremia; N17.9 Acute kidney failure, unspecified; I12.9 Hypertensive chronic kidney disease with stage 1 through stage 4 chronic kidney disease, or unspecified chronic kidney disease; N18.3 Chronic kidney disease, stage 3 (moderate); E11.42 Type 2 diabetes mellitus with diabetic polyneuropathy; D64.9 Anemia, unspecified; E11.22 Type 2 diabetes mellitus with diabetic chronic kidney disease; E78.1 Pure hyperglyceridemia; E78.00 Pure hypercholesterolemia, unspecified; E66.9 Obesity, unspecified; Z68.31 Body mass index [BMI] 31.0-31.9, adult; E11.65 Type 2 diabetes mellitus with hyperglycemia; L97.519 Non-pressure chronic ulcer of other part of right foot with unspecified severity
CPT/HCPCS: 36415; 36416; 71045; 80048; 80061; 80202; 83036; 85025; 85652; 86140; 87040; 99406; C1751; J0360; J0670; J1642; J1644; J1815; J2405; J2543; J2704; J3010; J3370; J7050

== ENCOUNTER 2018-01-21 10:09 | Outpatient (CLI) | payer SELFPAY ==
[2018-01-21] MEDS ORDERED: Sodium Chloride 0.9% 15 ML NEB ONE (21:49)
== END 2018-01-21 10:10 | disposition home or self-care (01) ==
LOC: WCC 10:09
PROVIDERS: ATTEND Family Medicine
DX: T81.89XD Other complications of procedures, not elsewhere classified, subsequent encounter (principal)
CPT/HCPCS: 97605; A4218

== ENCOUNTER 2018-01-26 00:35 | Observation (INO) | payer OTHER ==
[2018-01-26] MEDS ORDERED: Labetalol HCl 100 MG/20 ML VIAL ONE (01:35)
[2018-01-26] MEDS ORDERED: Nitroglycerin 2% Ointment 1 INCH/1 GM Packet ONE ×2 (01:44→02:17)
[2018-01-26] MEDS ORDERED: Fentanyl 100 MCG/2 ML VIAL ONE (01:44)
[2018-01-26 01:59] LABS: Bilirubin Negative (Negative); Blood, Urine Large (Negative); Clarity CLEAR (Clear); Glucose, Urine (Dipstick) Negative (Negative); Leukocyte Trace (Negative); Nitrite Negative (Negative); Protein, Urine (Dipstick) 300 mg/dL (Neg-Trace); Specific Gravity, Urine 1.014 (1.002-1.036); Urobilinogen 0.2 mg/dL (0.2-1.0); pH, Urine 5.5 (5.0-9.0)
[2018-01-26 02:01] LABS: ALT (SGPT) 20 U/L (8-55); AST (SGOT) 15 U/L (5-34); Albumin 3.9 g/dL (3.5-5.0); Alkaline Phosphatase 77 U/L (40-150); Anion Gap 15 mmol/L (10-20); BUN (Urea Nitrogen) 24 mg/dL (7.0-18.7); Bilirubin, Total 0.2 mg/dL (0.2-1.2); Calc. Creatinine Clearance 0 mL/min (70-130); Calcium 8.9 mg/dL (7.8-10.44); Carbon Dioxide 19 mmol/L (22-29); Chloride 106 mmol/L (98-107); Estimated GFR-MDRD 31; Globulin 3.3 g/dL (2.4-3.5); Glucose 119 mg/dL (70-105); Potassium 4.2 mmol/L (3.5-5.1); Protein, Total 7.2 g/dL (6.0-8.3); Sodium 136 mmol/L (136-145)
[2018-01-26 02:01] LABS: Bacteria/HPF None Seen HPF (None Seen); Hyaline Casts/LPF 4-6 HYALINE CAST LPF (0-3 Hyaline); Pathc Cast-AUWi Flag 0.72 (0-2.49); RBC/HPF GREATER THAN 50-TNTC HPF (0-3)
[2018-01-26 02:04] LABS: CKMB 2.6 ng/mL (0-6.6); Troponin I Less than 0.010 ng/mL (< 0.028)
[2018-01-26 02:38] LABS: #Basophils 0.1 thou/uL (0.0-0.2); #Eosinphils 0.1 thou/uL (0.0-0.7); #Lymphocytes 3.4 thou/uL (1.20-3.40); #Monocytes 0.6 thou/uL (0.11-0.59); #Neutrophils 6.3 thou/uL (1.40-6.50); %Basophils 0.6 % (0.0-1.0); %Eosinophils 0.9 % (0.0-10.0); %Lymphocytes 32.7 % (21.0-51.0); %Monocytes 5.4 % (0.0-10.0); %Neutrophils 60.4 % (42.0-75.0); Hemoglobin 11.4 g/dL (12.0-16.0); Mean Corpuscular HGB CONC 35.6 g/dL (32.0-36.0); Mean Corpuscular Hemoglobin 31.2 pg (27.0-31.0); Mean Corpuscular Volume 87.5 fL (78.0-98.0); Mean Platelet Volume 8.4 fL (7.4-10.4); Platelet Count 281 thou/uL (130-400); RBC Distribution Width 11.7 % (11.5-14.5); Red Blood Cell (RBC) Count 3.67 mill/uL (4.20-5.40); White Blood Cell (WBC) Count 10.5 thou/uL (4.8-10.8)
[2018-01-26 02:47] LABS: Renal Epithelial None Seen HPF (0-3); Transitional Epithelial NONE SEEN HPF (0-3)
[2018-01-26] MEDS ORDERED: Ondansetron ODT 8 MG TAB ONE (02:51)
[2018-01-26] MEDS ORDERED: Labetalol HCl 100 MG/20 ML VIAL SLOW IVP PRN (04:03)
[2018-01-26 04:10] VITALS: BMI 31.2
[2018-01-26] MEDS ORDERED: Acetaminophen 325 MG TAB PO SCH (05:00)
[2018-01-26] MEDS ORDERED: hydrALAZINE 20 MG/ML VIAL SLOW IVP SCH (05:00)
[2018-01-26 05:57] LABS: Troponin I Less than 0.010 ng/mL (< 0.028)
[2018-01-26] MEDS ORDERED: Gabapentin 300 MG CAP PO SCH (06:00)
[2018-01-26] MEDS ORDERED: tiZANidine HCl 4 MG TAB PO SCH (06:00)
[2018-01-26] MEDS: traMADol HCl 50 MG TAB PO PRN ×3 (06:14→18:32)
[2018-01-26 08:32] LABS: Troponin I Less than 0.010 ng/mL (< 0.028)
[2018-01-26] MEDS ORDERED: INSULIN DETEMIR SC SCH (09:00)
[2018-01-26] MEDS ORDERED: Non-Formulary Item 1 EACH (Esomeprazole Magnesium [Nexium] 20 MG) PO SCH (09:00)
[2018-01-26] MEDS: Hydrochlorothiazide 25 MG TAB PO SCH (09:11)
[2018-01-26] MEDS: Amlodipine 10 MG TAB PO SCH (09:11)
[2018-01-26] MEDS: Losartan 25 MG TAB PO SCH (09:11)
[2018-01-26] MEDS: Carvedilol 25 MG TAB PO SCH ×2 (09:12→17:41)
[2018-01-26] MEDS: Insulin Glargine 80 UNITS in Pre-Filled Syringe 1 EACH SC SCH ×2 (09:13→21:56)
[2018-01-26] MEDS: metFORMIN 500 MG TAB PO SCH ×2 (09:13→17:41)
[2018-01-26] MEDS ORDERED: ADENOSINE 60 MG/20 ML VIAL ONE (11:05)
--- NOTE | 2018-01-26 13:22 | HP ---
DATE OF ADMISSION: 01/26/2018 TIME OF SERVICE: 0745. PRIMARY CARE PHYSICIAN: Allyson. CHIEF COMPLAINT: Chest pain and elevated blood pressure. HISTORY OF PRESENT ILLNESS: Ms. Goldman is a 42-year-old female receiving IV therapy d aily at the [facility] ambulatory infusion for a foot infection. For the past few days, she has gone and has had elevated blood pressure despite taking her medications. On the day of presentation, 01/25, was high, but she had a headache. She has a history of 2 he art attacks in the past and so she was referred to the emergency department for evaluation. She almita es any fevers or chills. No chest pain otherwise and no shortness of breath. No diaphoresis. No na usea, vomiting, diarrhea, constipation. PAST MEDICAL HISTORY: 1. Diabetes mellitus type 2, insulin-dependent. 2. Gastroesophageal reflux disease. 3. Hypertension, essential. 4. Chronic back pain. 5. Osteomyelitis of her foot. 6. Restless leg syndrome. 7. Chronic kidney disease stage 3. PAST SURGICAL HISTORY: Includes, 1. Back surgery due to nerve damage. 2. L5-S1 diskectomy. 3. Tonsillectomy. 4. Bilateral tubal ligation. 5. Angiocatheter for non-ST elevation TX in 2016. ALLERGIES: CIPRO and LISINOPRIL. LISINOPRIL caused anaphylaxis. HOME MEDICATIONS: 1. Carvedilol 12.5 mg p.o. b.i.d. 2. Amlodipine 10 mg p.o. daily. 3. Hydralazine 50 mg p.o. t.i.d. 4. Novolin R 50 units subcu as needed. 5. Nexium 20 mg p.o. daily. 6. Metformin 1000 mg p.o. b.i.d. 7. Levemir unknown dose subcu b.i.d. 8. Losartan 50 mg daily. FAMILY HISTORY: Significant for diabetes mellitus type 2 in both of her parents and her mother had c oronary artery disease with an TX, but not at an early age. SOCIAL HISTORY: Negative for alcohol. She is a former drug user, abused cocaine, said she snorted a nd smoked, but never injected. Uses tobacco. Smokes cigarettes, but a pack would last for about 2 w eeks. She does continue to smoke. Lives at home with family and is . REVIEW OF SYSTEMS: All systems reviewed and negative except as stated per HPI. PHYSICAL EXAMINATION: VITAL SIGNS: On arrival to the ER, temperature 98.7, pulse 66, blood pressure was 263/128, respirato ry rate 18, satting 100% on room air. Since admission, blood pressure this morning after morning med icines was 136/67. GENERAL: She is awake, she is alert and she is oriented x3. Well-developed, well-nourished Latin Am er[place] female, appears to be in acute distress. HEENT: Normocephalic, atraumatic. Pupils equal, round and reactive to light bilaterally. Mucous me mbranes are moist. She has no visible lesions and no thrush. NECK: Supple. She has no lymphadenopathy, JVD or thyromegaly with normal carotid upstroke. I do no t appreciate bruits. LUNGS: Clear. No wheezes, no rales, no rhonchi with good air movement. Symmetric chest excursion. No prolonged expiratory phase. CARDIOVASCULAR: Normal S1 and S2. No S3, S4. Mild systolic ejection murmur about 2/6 heard at the right upper sternal border without radiation to the carotids. ABDOMEN: Soft. It is nontender and nondistended. No masses or organomegaly. EXTREMITIES: No cyanosis or clubbing. Trace pedal edema. Right foot has a plantar first MTP ulcera tion. There is no exposed bone. It has got slight maceration around the edges, but exposed to granu lar tissue. SKIN: Otherwise, warm, moist and well perfused without any rash or lesions. MUSCULOSKELETAL: Normal to inspection. Large joints appear normal without any evidence of inflammat ion. NEUROLOGIC: Cranial nerves II-XII are grossly intact. She has no focal neurologic deficit. Does oseguera ve peripheral neuropathy of bilateral lower extremities from the ankle level down. LABORATORY DATA: White blood cell count was 10.5, hemoglobin 11.4, hematocrit 32.1, platelet count i s 281,000. CMP is normal with a sodium of 136, potassium 4.2, chloride 106, bicarb 19, BUN 24, creat inine 1.81, glucose of 119. Liver function within normal limits. Troponin I was negative x3, less t [place] 0.010. ASSESSMENT AND PLAN: 1. Hypertensive urgency. The patient had chest pain with elevated blood pressure. It certainly was extremely elevated. After getting her morning medicines, her blood pressure has normalized. We jared l continue her on her current regimen. She had an echocardiogram, negative. Cardiology was co nsulted by the accepting physician. If they have no objections, we will likely send her home today. 2. Diabetes mellitus type 2. We will continue home medications. 3. Hypertension. As above. 4. Chest pain: Negative biomarkers x3. Certainly, good blood pressure control is important for fut ure problems. 5. Diabetic foot infection with a history of osteo on IV antibiotics. We will continue this. We wi ll resume outpatient treatment when she discharges.
--- NOTE | 2018-01-26 14:43 | CON ---
DATE OF CONSULTATION: 01/26/2018 REASON FOR CONSULTATION: Chest pain and hypertensive urgency. HISTORY OF PRESENT ILLNESS: Ms. Goldman is a very pleasant 42-year-old woman who was seen and evaluat ed in the past. She has a history of CAD with complete occlusion of a small nondominant right hamlin ry artery. Recently, she presented with a markedly elevated blood pressure. She states her blood pr essure is in the 210s/100s. She developed chest pain. She states she has been compliant with her me dications. After blood pressure improved, so did her symptoms. She is currently resting comfortably . She currently has a PICC line for a wound noted in her foot. PAST MEDICAL HISTORY: CAD status post AK, diabetes mellitus, chronic kidney disease, hypertension, o besity, hypertriglyceridemia, low back pain. PAST SURGICAL HISTORY: Back surgery, BTL, tonsillectomy. ALLERGIES: SURESH INHIBITOR THERAPY. SOCIAL HISTORY: No current tobacco or alcohol use. REVIEW OF SYSTEMS: Ten-point review of systems is reviewed and as above, otherwise negative. HOME MEDICATIONS: Tramadol, metformin, losartan, Levemir, hydrochlorothiazide, Humalog, gabapentin, Nexium, carvedilol and amlodipine. PHYSICAL EXAMINATION: GENERAL: The patient is a pleasant female who is in no acute distress. The patient appears her stat ed age. VITAL SIGNS: Blood pressure 164/76, pulse 72, temperature 98.8. NEUROLOGIC: The patient is alert and oriented times 3 with no focal neurologic deficits. HEENT: Sclerae without icterus. Mouth has moist mucous membranes with normal pallor. NECK: No JVD. Carotid upstroke brisk. No bruits bilaterally. LUNGS: Clear to auscultation with unlabored respirations. BACK: No scoliosis or kyphosis. CARDIAC: Regular rate and rhythm with normal S1 and S2. No S3 or S4 noted. No significant rubs, mu rmurs, thrills, or gallops noted throughout the precordium. PMI is not displaced. There is no gillian ternal heave. ABDOMEN: Soft, nontender, nondistended. No peritoneal signs present. No hepatosplenomegaly. No ab normal striae. EXTREMITIES: 2+ femoral and 2+ dorsalis pedis pulses. No cyanosis, clubbing, or edema. SKIN: No gross abnormalities. PERTINENT LABS: Hemoglobin 11.4, creatinine 1.8 with a GFR of 31. Troponin negative. IMPRESSION: 1. Hypertensive urgency. 2. Chest pain. RECOMMENDATIONS: Current medications for her blood pressure control include amlodipine, carvedilol i n addition to losartan. We will change losartan to Benicar. May add hydralazine. She is on low dos e hydrochlorothiazide, but may not be as effective given a creatinine of 1.8. May also consider spir onolactone. She also needs preop clearance for back surgery. Would recommend a noninvasive stress s tudy to assess for any areas of ischemia.
[2018-01-26] MEDS: hydrALAZINE 10 MG TAB PO SCH ×2 (14:53→21:56)
[2018-01-26] MEDS: tiZANidine HCl 4 MG TAB PO SCH ×2 (14:53→21:57)
[2018-01-26] MEDS: Gabapentin 300 MG CAP PO SCH ×2 (14:53→21:56)
[2018-01-26] MEDS ORDERED: hydrALAZINE 20 MG/ML VIAL SLOW IVP PRN (22:23)
[2018-01-26] MEDS ORDERED: hydrALAZINE 10 MG TAB PO SCH (22:30)
[2018-01-26] MEDS ORDERED: Carvedilol 6.25 MG TAB PO SCH (22:30)
[2018-01-26] MEDS: cloNIDine 0.1 MG TAB PO PRN (22:48)
[2018-01-27] MEDS: traMADol HCl 50 MG TAB PO PRN ×3 (03:03→17:46)
[2018-01-27] MEDS: cloNIDine 0.1 MG TAB PO PRN ×2 (03:03→20:29)
[2018-01-27] MEDS ORDERED: Sodium Chloride 0.9% 10 ML ONE (07:43)
[2018-01-27] MEDS ORDERED: Carvedilol 25 MG TAB PO SCH (09:00)
--- NOTE | 2018-01-27 09:29 | PDOC.CTH ---
Cardiology Progress Note - Subjective No overnight events. Awaiting second half of stress images. BP elevated overnight, but 134/60 this AM. - Objective Vital Signs Pulse Resp BP BP 01/27/18 05:00 74 18 134/65 01/27/18 03:03 182/80 H 01/26/18 22:48 82 189/95 H 01/26/18 21:56 82 189/95 H Admit Weight 224 lb Weight 222 lb 01/26/18 01/27/18 01/28/18 06:59 06:59 06:59 Intake Total 400 480 Output Total 800 Balance 400 -320 - Telemetry Telemetry Rhythm: SR - Labs Result Diagrams: 01/26/18 01:29 01/26/18 01:30 Troponin/CKMB CK-MB (CK-2) 2.6 ng/mL (0-6.6) 01/26/18 01:30 Troponin I Less than 0.010 ng/mL (< 0.028) 01/26/18 07:46 - Assessment/Plan 1. HTN Urgency 2. CP 3. Back Pain 4. CKD 5. Pre-Op Clearance 6. CAD with chronic RCA occlusion Await MPI results. If BP remains elevated consider ImDur given history of CAD and CKD.
[2018-01-27] MEDS: Losartan 25 MG TAB PO SCH (10:17)
[2018-01-27] MEDS: Amlodipine 10 MG TAB PO SCH (10:17)
[2018-01-27] MEDS: Hydrochlorothiazide 25 MG TAB PO SCH (10:18)
[2018-01-27] MEDS: Carvedilol 25 MG TAB PO SCH ×2 (10:18→17:47)
[2018-01-27] MEDS: tiZANidine HCl 4 MG TAB PO SCH ×2 (10:18→15:47)
[2018-01-27] MEDS: Gabapentin 300 MG CAP PO SCH ×2 (10:18→17:47)
[2018-01-27] MEDS: hydrALAZINE 25 MG TAB PO SCH ×3 (10:19→20:26)
[2018-01-27] MEDS: metFORMIN 500 MG TAB PO SCH ×2 (10:20→17:45)
[2018-01-27] MEDS: Insulin Glargine 80 UNITS in Pre-Filled Syringe 1 EACH SC SCH ×2 (10:20→21:19)
[2018-01-27] MEDS ORDERED: Dextrose 5% in Water 1,000 ML IV PRN (11:48)
[2018-01-27] MEDS ORDERED: Dextrose 50% Abboject 50 ML SYRINGE IVP PRN (11:48)
[2018-01-27] MEDS: HumaLOG 300 UNITS/3 ML VIAL SC PRN ×2 (12:41→17:50)
[2018-01-27] MEDS: cefTRIAXone\\ROCEPHIN 2 GM in Sodium Chloride 0.9% 100 ML IVPB SCH (12:42)
--- NOTE | 2018-01-27 14:27 | NM ---
MYOCARDIAL PERFUSION STUDY: DATE: 01/27/18. HISTORY: Chest pain, history of myocardial infarction and coronary artery disease. RADIOPHARMACEUTICALS: 27 mCi Technetium 99m sestamibi, IV at stress, and 31 mCi Technetium 99m sestamibi, IV at rest. COMPARISON: 03/10/17. FINDINGS: There is diminished uptake of radiotracer seen within the inferior left ventricular wall in a similar distribution to the prior exam. Quantitative analysis shows a relatively fixed defect with surround ing reversibility. The gated images show hypokinesis involving the inferior left ventricular wall wi th diminished thickening present. Again, this finding is present on the prior exam. The calculated left ventricular ejection fraction is diminished at 45% and previously the LVEF was 52 %.. IMPRESSION: 1. Findings suggestive of mild scarring in the inferior left ventricular wall with a question of mil d periinfarct ischemia. Again, this is similar to the prior study. 2. Diminished left ventricular ejection fraction of 45% with hypokinesis of the inferior left ventri cular wall as well as diminished thickening. POS: [facility]
[2018-01-27] MEDS ORDERED: HYDROcodone/Acetaminophen 5/325 mg Tablet PO PRN (21:01)
[2018-01-27] MEDS: HYDROcodone/Acetaminophen 5/325 mg Tablet PO PRN (21:20)
[2018-01-28] MEDS: tiZANidine HCl 4 MG TAB PO SCH ×2 (00:57→09:35)
[2018-01-28] MEDS: Gabapentin 300 MG CAP PO SCH ×2 (00:57→09:33)
[2018-01-28] MEDS: HYDROcodone/Acetaminophen 5/325 mg Tablet PO PRN ×2 (05:19→10:14)
[2018-01-28] MEDS: cloNIDine 0.1 MG TAB PO PRN (05:32)
--- NOTE | 2018-01-28 05:59 | PDOC.CTH ---
Cardiology Progress Note - Subjective Pt doing well. BP better. No CP - Objective Vital Signs Temp Pulse Resp BP BP 01/28/18 05:32 165/78 H 01/27/18 20:29 185/93 H 01/27/18 20:26 72 185/93 H 01/27/18 20:00 98 F 72 18 185/93 H Admit Weight 224 lb Weight 222 lb 01/26/18 01/27/18 01/28/18 06:59 06:59 06:59 Intake Total 400 3305 Output Total 3100 Balance 400 205 - Physical Examination General/Neuro: alert & oriented x3, NAD Neck: carotid US brisk, no JVD present Lungs: CTA, unlabored respirations Heart: PMI normal, RRR Abdomen: NT/ND, soft Extremities: + femoral B - Labs Result Diagrams: 01/26/18 01:29 01/26/18 01:30 Troponin/CKMB CK-MB (CK-2) 2.6 ng/mL (0-6.6) 01/26/18 01:30 Troponin I Less than 0.010 ng/mL (< 0.028) 01/26/18 07:46 - Assessment/Plan 1. HTN Urgency 2. CP 3. Back Pain 4. CKD 5. Pre-Op Clearance 6. CAD with chronic RCA occlusion Increase imdur When BP stable ok for discharge Pt is cleared for surgery. She is felt to be low risk fo complications. Stress test with no changes from previous stress test
[2018-01-28] MEDS: Carvedilol 25 MG TAB PO SCH (09:32)
[2018-01-28] MEDS: Amlodipine 10 MG TAB PO SCH (09:32)
[2018-01-28] MEDS: metFORMIN 500 MG TAB PO SCH (09:32)
[2018-01-28] MEDS: Hydrochlorothiazide 25 MG TAB PO SCH (09:33)
[2018-01-28] MEDS: hydrALAZINE 25 MG TAB PO SCH (09:33)
[2018-01-28] MEDS: Insulin Glargine 80 UNITS in Pre-Filled Syringe 1 EACH SC SCH (09:34)
[2018-01-28] MEDS: Losartan 25 MG TAB PO SCH (09:35)
[2018-01-28 11:22] VITALS: BP 118/64; TEMP 97.9
[2018-01-28] MEDS: cefTRIAXone\\ROCEPHIN 2 GM in Sodium Chloride 0.9% 100 ML IVPB SCH (11:26)
[2018-01-28] MEDS: HumaLOG 300 UNITS/3 ML VIAL SC PRN (11:30)
--- NOTE | 2018-01-28 15:03 | DIS ---
DATE OF ADMISSION: 01/26/2018 DATE OF DISCHARGE: 01/28/2018 PRIMARY CARE PHYSICIAN: Pacheco Valadez. DISCHARGE DIAGNOSES: Uncontrolled hypertension, diabetes mellitus type 2, gastroesophageal reflux di sease, medication noncompliance, osteomyelitis of her foot recently still on IV Rocephin by Dr. Russell , chronic back pain and chronic kidney disease stage 3. DISCHARGE MEDICATIONS: As follows, Rocephin 2 grams IV piggy bag every [address] Russell, tr amadol 50 mg q.6 hours p.r.n. as needed. Resume tizanidine 4 mg t.i.d., metformin 1000 mg p.o. b.i.d ., Levemir 8 units subcu b.i.d., Humalog sliding scale t.i.d., hydralazine 25 mg p.o. daily, Cozaar 5 0 mg daily, isosorbide 60 mg daily, hydrochlorothiazide 12.5 mg daily, Neurontin 300 mg p.o. t.i.d., Nexium 20 mg daily, Coreg 25 mg p.o. b.i.d., amlodipine 10 mg daily INHOUSE CONSULTATIONS: Cardiology, Dr. Ma. PROCEDURES DONE IN THE HOSPITAL: Include nuclear medicine stress test which shows findings suggesti ve of mild scarring in the inferior left ventricular wall which is similar to the prior study an ejec tion fraction of 45% with left ventricular inferior wall hypokinesia. HISTORY OF PRESENTING ILLNESS: Ms. Goldman is a 42-year-old female with past medical history of uncon trolled hypertension, diabetes, and chronic back pain who is currently on IV antibiotics for foot inf ection, presented to the emergency room with complaints of chest pain and was found to have uncontrol led blood pressure. She had blood pressure 263/128 in the emergency room. Initial workup was otherw ise unremarkable. Her troponin was negative x3. She was admitted to telemetry unit with hypertensiv e urgency. Cardiology was also consulted. Please see admission history and physical for further det ail. HOSPITAL COURSE: The patient's medications were adjusted. She has missed a few doses prior to admis gus as she is scheduled to undergo back surgery very soon and has been having more back pain and has ran out of her pain medications as well. Dr. Ma saw the patient for Cardiology and adjusted her medications. Hydralazine was added and Imdur was increased. She also needed a preop clearance f or upcoming back surgery, so a noninvasive stress test was done which showed findings similar to her prior stress test done, so she was cleared by Dr. Ma for the surgery that is scheduled to get done as an outpatient. By the time of discharge, her blood pressure was under better control. She w as given refills for all the new medications as well as her old antihypertensive and was instructed t o follow up closely with her primary care physician. She is instructed to follow up after she has no cosme down her blood pressure at least twice a day to see her physician in 7 days or so. She was also given referral to follow up with Dr. Ma as an outpatient. PHYSICAL EXAMINATION: As of this morning, a physical examination by myself include, VITAL SIGNS: Temperature 97.9, pulse of 70, respirations 18, saturating 96% on room air, blood press ure 118/64. GENERAL: No acute distress, awake, alert, oriented x3. CHEST: Clear to auscultation without any wheezing, rales or rhonchi. CARDIAC: Rhythm is regular without any murmur, rubs or gallops. ABDOMEN: Morbidly obese. No rebound, guarding or rigidity. EXTREMITIES: Free of any cyanosis, clubbing, or edema. She was given her today's dose of IV Rocephin prior to discharge. Total time spent in the discharge of this patient 35 minutes.
== END 2018-01-28 14:18 | disposition home or self-care (01) ==
LOC: ERS 00:35 → INTOOBSV 04:06 → 2NO 04:06
PROVIDERS: ADMIT Internal Medicine; ATTEND Internal Medicine
DX: I16.0 Hypertensive urgency (principal); I12.9 Hypertensive chronic kidney disease with stage 1 through stage 4 chronic kidney disease, or unspecified chronic kidney disease; E11.22 Type 2 diabetes mellitus with diabetic chronic kidney disease; N18.3 Chronic kidney disease, stage 3 (moderate); E11.69 Type 2 diabetes mellitus with other specified complication; M86.8X7 Other osteomyelitis, ankle and foot; I25.2 Old myocardial infarction; I25.10 Atherosclerotic heart disease of native coronary artery without angina pectoris; G89.29 Other chronic pain; E66.9 Obesity, unspecified; E78.1 Pure hyperglyceridemia; M54.9 Dorsalgia, unspecified; G25.81 Restless legs syndrome; Z88.1 Allergy status to other antibiotic agents; Z88.8 Allergy status to other drugs, medicaments and biological substances; Z79.84 Long term (current) use of oral hypoglycemic drugs; Z79.899 Other long term (current) drug therapy; Z87.891 Personal history of nicotine dependence; Z68.31 Body mass index [BMI] 31.0-31.9, adult
CPT/HCPCS: 36415; 36416; 78452; 80053; 81003; 81015; 82553; 84484; 85025; 93005; 93017; 96365; 96374; 96375; 96376; A4216; A9500; G0378; J0153; J0360; J0696; J1642; J3010; J7050

== ENCOUNTER 2018-05-06 12:09 | Inpatient (IN) | payer OTHER, SELFPAY ==
[2018-05-06 13:01] LABS: #Eosinphils 0.1 thou/uL (0.0-0.7); #Lymphocytes 1.7 thou/uL (1.20-3.40); #Monocytes 0.4 thou/uL (0.11-0.59); #Neutrophils 8.7 thou/uL (1.40-6.50); %Basophils 0.4 % (0.0-1.0); %Eosinophils 0.8 % (0.0-10.0); %Lymphocytes 15.3 % (21.0-51.0); %Monocytes 3.4 % (0.0-10.0); %Neutrophils 80.2 % (42.0-75.0); Hemoglobin 11.9 g/dL (12.0-16.0); Mean Corpuscular HGB CONC 34.2 g/dL (32.0-36.0); Mean Corpuscular Hemoglobin 29.6 pg (27.0-31.0); Mean Corpuscular Volume 86.4 fL (78.0-98.0); Mean Platelet Volume 8.7 fL (7.4-10.4); Platelet Count 261 thou/uL (130-400); RBC Distribution Width 11.7 % (11.5-14.5); Red Blood Cell (RBC) Count 4.02 mill/uL (4.20-5.40); White Blood Cell (WBC) Count 10.8 thou/uL (4.8-10.8)
[2018-05-06 13:30] LABS: CKMB 2.1 ng/mL (0-6.6); Troponin I Less than 0.010 ng/mL (< 0.028)
[2018-05-06 13:31] LABS: ALT (SGPT) 27 U/L (8-55); AST (SGOT) 29 U/L (5-34); Albumin 3.6 g/dL (3.5-5.0); Alkaline Phosphatase 137 U/L (40-150); Anion Gap 11 mmol/L (10-20); BUN (Urea Nitrogen) 21 mg/dL (7.0-18.7); Bilirubin, Total 0.3 mg/dL (0.2-1.2); CK (CPK) 77 U/L (29-168); Calc. Creatinine Clearance 0 mL/min (70-130); Calcium 8.9 mg/dL (7.8-10.44); Carbon Dioxide 25 mmol/L (22-29); Chloride 104 mmol/L (98-107); Estimated GFR-MDRD 33; Globulin 3.4 g/dL (2.4-3.5); Glucose 193 mg/dL (70-105); Potassium 4.1 mmol/L (3.5-5.1); Sodium 136 mmol/L (136-145)
--- NOTE | 2018-05-06 14:09 | RAD ---
PORTABLE UPRIGHT FRONTAL CHEST RADIOGRAPH: Date: 05-06-18 History: Hypertension, Chest pain. FINDINGS: Lungs are clear. Heart and mediastinal contours unremarkable. IMPRESSION: No acute finding. POS: H
--- NOTE | 2018-05-06 14:34 | CT ---
NONCONTRAST CT HEAD: Date: 05-06-18 History: Headache. History of hypertension. Comparison: 03-11-17 FINDINGS: There is no evidence of a hemorrhage, acute infraction, mass effect, or midline shift. The ventricula r system is normal in size, shape, and position. There has been no interval change compared to the pr ior exam. IMPRESSION: No acute intracranial abnormalities demonstrated. POS: [facility]
[2018-05-06] MEDS ORDERED: Labetalol HCl 100 MG/20 ML VIAL ONE (15:34)
[2018-05-06] MEDS ORDERED: Acetaminophen 500 MG TAB ONE (15:34)
[2018-05-06] MEDS ORDERED: Ondansetron PF 4 MG/2 ML Vial ONE (15:34)
[2018-05-06] MEDS ORDERED: Senokot S 8.6-50 MG TAB PO PRN (17:03)
[2018-05-06] MEDS ORDERED: Ondansetron PF 4 MG/2 ML Vial IVP PRN (17:03)
[2018-05-06] MEDS ORDERED: Acetaminophen 650 MG Suppository PR PRN (17:03)
[2018-05-06] MEDS ORDERED: Dextrose 5% in Water 1,000 ML IV PRN (17:07)
[2018-05-06] MEDS ORDERED: Dextrose 50% Abboject 50 ML SYRINGE SLOW IVP PRN (17:07)
[2018-05-06] MEDS ORDERED: Labetalol HCl 100 MG/20 ML VIAL SLOW IVP PRN (17:08)
[2018-05-06] MEDS ORDERED: hydrALAZINE 20 MG/ML VIAL SLOW IVP PRN (17:08)
[2018-05-06] MEDS ORDERED: cloNIDine 0.1 MG TAB PO PRN (17:09)
[2018-05-06 17:55] LABS: BHCG - Serum Negative (NEGATIVE); Pregs Control Background? CLEAR/WHITE (CLR/WHITE); Pregs Control Bar Appear? YES (CONTROL BAR)
[2018-05-06 17:56] VITALS: BMI 31.7
[2018-05-06 17:59] LABS: Troponin I Less than 0.010 ng/mL (< 0.028)
[2018-05-06] MEDS: traMADol HCl 50 MG TAB PO PRN (18:14)
[2018-05-06] MEDS: Meclizine HCl 25 MG TAB PO SCH (18:15)
[2018-05-06] MEDS: Atorvastatin Calcium 40 MG TAB PO SCH (20:00)
[2018-05-06] MEDS: Acetaminophen 325 MG TAB PO PRN (20:01)
[2018-05-06 20:30] LABS: Troponin I 0.011 ng/mL (< 0.028)
--- NOTE | 2018-05-06 21:04 | HP ---
PRIMARY CARE PROVIDER: [employer] PaymentsBradford Tan. CHIEF COMPLAINT: Dizziness. HISTORY OF PRESENT ILLNESS: Ms. Goldman is a pleasant 42-year-old lady who was seen at [facility] on 05/06/2018. She initially reported chest pain when she presented to the emerg ency room. She was hospitalized at [facility] in 12/2017, at which time she h ad findings suggestive of mild scarring in the inferior left ventricular wall with a question of mild demi-infarct ischemia, similar to prior study. She reports that she woke up today morning with dizziness. She felt that the room was spinning aroun d her. She felt nauseous. She is unable to keep her eyes open for long periods of time secondary to this. She reports that she had mild chest pain, but it is now resolved. Over the last month, she has run out of some of her medications. She has been taking amlodipine and hydrochlorothiazide as well as metformin. She has also been taking her insulin. She denies any abdominal pain. REVIEW OF SYSTEMS: All other systems reviewed and found to be negative. PAST MEDICAL HISTORY: Insulin-dependent diabetes mellitus type 2, gastroesophageal reflux disease, h ypertension, chronic back pain, left foot osteomyelitis, restless legs syndrome, chronic kidney disea se stage 3 and coronary artery disease. PAST SURGICAL HISTORY: Back surgery due to nerve damage, L5-S1 diskectomy, tonsillectomy, bilateral tubal ligation, cardiac catheterization for non-ST elevation myocardial infarction in 2016. FAMILY HISTORY: Significant for diabetes mellitus type 2 in both her parents and myocardial infarcti on in her mother. SOCIAL HISTORY: The patient denies alcohol use. She denies any current recreational drug use, altho ugh she has used cocaine in the past. She smokes cigarettes, reports that 1 pack of cigarettes would last about 2 weeks. ALLERGIES: CIPROFLOXACIN and LISINOPRIL. She had anaphylaxis from LISINOPRIL. CURRENT MEDICATIONS: As mentioned earlier, she is not taking some of her medications. She appears t o be taking amlodipine 10 mg daily, hydrochlorothiazide 12.5 mg daily, Levemir insulin and metformin 1000 mg 2 times a day. PHYSICAL EXAMINATION: GENERAL: On examination, Ms. Goldman is awake and alert, not in acute distress. She is obese. VITAL SIGNS: Blood pressure is 184/114, pulse 75, respiratory rate 11, and oxygen saturation 98% on room air. She is afebrile. EYES: No scleral icterus. No conjunctival pallor. ENT: Moist mucosal membranes, no oropharyngeal erythema or exudates. Ear canals unremarkable. NECK: Supple, nontender, trachea is midline. RESPIRATORY: Accessory muscles of breathing are not active. Chest wall movements are symmetric bila terally. LUNGS: Clear to auscultation without wheeze, rhonchi or crepitations. CARDIOVASCULAR: S1 and S2 are heard, regular. Peripheral pulses palpable. No carotid bruit, no per icardial rub. ABDOMEN: Soft, nontender, bowel sounds heard, no hepatomegaly, no splenomegaly. NEUROLOGIC: Pupils equal bilaterally and reactive to light. She is unable to track finger because s he keeps closing her eyes because it is making her nauseous. The rest of the cranial nerves were int act. Power is 5/5 in all 4 extremities. No focal motor or sensory deficits. Deep tendon reflexes a re 2+. Plantar is downgoing bilaterally. MUSCULOSKELETAL: Power is 5/5 in all 4 extremities. SKIN: She has a wound over the plantar aspect of her right foot. LYMPHATIC: No cervical lymphadenopathy. PSYCHIATRIC: Normal mood, normal affect, patient is oriented to person, place, and time. IMAGING DATA AND LABORATORY DATA: Ms. Goldman's labs and investigations were reviewed. I reviewed he r electrocardiogram, which shows normal sinus rhythm, no ST changes to suggest an acute coronary synd raj. I also reviewed chest x-ray, which does not show any pulmonary infiltrates. Noncontrast CT sc an of the brain did not show any acute intracranial abnormalities. She has normal white count, normo cytic anemia with hemoglobin 11.9, normal platelet count, normal sodium, normal potassium, elevated b lood urea nitrogen of 21, elevated creatinine of 1.70, last known creatinine 2.01 on 02/11/2018, unre markable liver profile and normal troponin I. ASSESSMENT AND PLAN: Ms. Goldman is a pleasant 42-year-old lady who was seen at [facility] on 05/06/2018. Her problem list includes: 1. Hypertensive urgency: Ms. Goldman presented to the emergency room with hypertensive urgency in th e context of not being fully compliant with her medications. She will be admitted to the hospital fo r further management. We will start her on p.r.n. IV labetalol and p.r.n. IV hydralazine. We will r esume her home medications once clarified. We will monitor vital signs and titrate antihypertensives as needed. 2. Vertigo: Differential includes both central and peripheral causes, although the fact that she is feeling less vertiginous when she closes her eyes suggests that it is a peripheral cause. We will s tart her on meclizine. We will also check MRI of the brain to rule out central causes such as residential sales representative ior circulation stroke, etc. We will also check a 2-D echocardiogram and carotid Dopplers. We will also consult Neurology Service. We will start patient on aspirin and statin for now and check fastin g lipid profile. 3. Diabetes mellitus type 2: Start Accu-Cheks and insulin sliding scale. 4. Chronic kidney disease. The patient has stage III chronic kidney disease. This appears to be st able. 5. History of coronary artery disease. Appears to be stable. Patient denies any chest pain at this time. 6. Gastroesophageal reflux disease: Appears to be stable. 7. Diabetic foot wound: Patient to follow up with her primary care provider. Many thanks for allowing me to participate in your patient's care. Please feel free to contact me wi th any questions or concerns. LEVEL OF RISK: High. LEVEL OF COMPLEXITY: High.
[2018-05-06] MEDS ORDERED: Carvedilol 25 MG TAB PO SCH (21:30)
[2018-05-06] MEDS ORDERED: hydrALAZINE 25 MG TAB PO SCH (21:30)
[2018-05-06] MEDS ORDERED: Amlodipine 10 MG TAB PO SCH (21:30)
--- NOTE | 2018-05-06 23:18 | ULT ---
CAROTID DUPLEX ULTRASOUND: INDICATIONS: History of TIA and CVA. FINDINGS: There has been interval thickening and mild atherosclerotic plaque involving the common carotid arter ies and the bilateral internal carotid arteries. Peak systolic velocity of the right CCA was 79.2 cm per second and the left CCA was 85.9 cm per secon d. Peak systolic velocity of the right ICA was 84.7 cm per second and the left ICA was 80 cm per second. The right ICA/CCA ratio was 1.07 and the left was 0.93. Antegrade flow is seen in both vertebral arteries. IMPRESSION: No hemodynamically significant stenosis demonstrated. POS: [facility]
[2018-05-07] MEDS ORDERED: tiZANidine HCl 4 MG TAB PO SCH (01:15)
[2018-05-07] MEDS ORDERED: Gabapentin 300 MG CAP PO SCH (01:15)
[2018-05-07] MEDS: Meclizine HCl 25 MG TAB PO SCH ×3 (01:18→16:33)
[2018-05-07] MEDS: traMADol HCl 50 MG TAB PO PRN ×3 (01:18→16:35)
[2018-05-07 05:23] LABS: #Eosinphils 0.1 thou/uL (0.0-0.7); #Lymphocytes 2.5 thou/uL (1.20-3.40); #Monocytes 0.5 thou/uL (0.11-0.59); #Neutrophils 7.2 thou/uL (1.40-6.50); %Basophils 0.5 % (0.0-1.0); %Eosinophils 1.3 % (0.0-10.0); %Lymphocytes 24.3 % (21.0-51.0); %Monocytes 4.5 % (0.0-10.0); %Neutrophils 69.4 % (42.0-75.0); Hemoglobin 10.8 g/dL (12.0-16.0); Mean Corpuscular HGB CONC 32.1 g/dL (32.0-36.0); Mean Corpuscular Hemoglobin 28.3 pg (27.0-31.0); Mean Corpuscular Volume 88.2 fL (78.0-98.0); Mean Platelet Volume 8.8 fL (7.4-10.4); Platelet Count 254 thou/uL (130-400); Red Blood Cell (RBC) Count 3.81 mill/uL (4.20-5.40); White Blood Cell (WBC) Count 10.4 thou/uL (4.8-10.8)
[2018-05-07 05:45] LABS: Anion Gap 13 mmol/L (10-20); BUN (Urea Nitrogen) 20 mg/dL (7.0-18.7); Calc. Creatinine Clearance 64 mL/min (70-130); Calcium 8.4 mg/dL (7.8-10.44); Carbon Dioxide 24 mmol/L (22-29); Cardiac Risk 8.6 (Less than 4.5); Chloride 100 mmol/L (98-107); Cholesterol 353 mg/dl (< 200 Desired); Estimated GFR-MDRD 30; Glucose 206 mg/dL (70-105); HDL Cholesterol 41 mg/dL (>60 Neg Risk); Sodium 133 mmol/L (136-145); Triglycerides 548 mg/dL (Less than 150)
[2018-05-07] MEDS: Insulin Regular 300 UNITS/3 ML VIAL SC PRN ×3 (06:30→17:08)
[2018-05-07] MEDS ORDERED: INSULIN DETEMIR SC SCH (09:00)
[2018-05-07] MEDS ORDERED: Enoxaparin Sodium 40 MG/0.4 ML SYRINGE SC SCH (09:00)
[2018-05-07] MEDS ORDERED: Losartan 25 MG TAB PO SCH (09:00)
[2018-05-07] MEDS: Gabapentin 300 MG CAP PO SCH ×5 (09:05→21:53)
[2018-05-07] MEDS: Carvedilol 25 MG TAB PO SCH ×2 (09:05→16:34)
[2018-05-07] MEDS: tiZANidine HCl 4 MG TAB PO SCH ×3 (09:05→21:53)
[2018-05-07] MEDS: Aspirin 325 mg Enteric Coated Tablet PO SCH (09:05)
[2018-05-07] MEDS: metFORMIN 500 MG TAB PO SCH ×2 (09:07→16:34)
[2018-05-07] MEDS: Amlodipine 10 MG TAB PO SCH (09:07)
[2018-05-07] MEDS: hydrALAZINE 25 MG TAB PO SCH ×3 (09:10→21:54)
[2018-05-07] MEDS: Hydrochlorothiazide 25 MG TAB PO SCH (09:10)
[2018-05-07] MEDS: Insulin Glargine 80 UNITS in Pre-Filled Syringe 1 EACH SC SCH ×2 (09:16→21:55)
[2018-05-07 12:28] LABS: CKMB 1.6 ng/mL (0-6.6); Troponin I Less than 0.010 ng/mL (< 0.028)
[2018-05-07] MEDS ORDERED: Sodium Chloride 0.9% 500 ML IV SCH (12:30)
--- NOTE | 2018-05-07 15:22 | PDOC.PN ---
- Subjective Encounter Start Date: 05/07/18 Encounter Start Time: 08:20 Pt seen for followup re: vertigo. Reports ongoing vertigo, especially with eyes open. Nausea+, no vomiting. - Objective MAR Reviewed: Yes Vital Signs & Weight: Vital Signs (12 hours) Temp Pulse Pulse Resp BP BP BP 05/07/18 13:05 70 114/61 05/07/18 11:41 98.4 F 67 16 94/56 L 05/07/18 09:10 75 168/80 H 05/07/18 09:07 75 168/80 H 05/07/18 07:28 99.2 F 67 16 170/84 H 05/07/18 03:42 99.1 F 67 18 137/74 Pulse Ox 05/07/18 13:05 05/07/18 11:41 95 05/07/18 09:10 05/07/18 09:07 05/07/18 07:28 98 05/07/18 03:42 94 L Weight Weight 227 lb 6.4 oz Result Diagrams: 05/07/18 04:58 05/07/18 04:58 Additional Labs: Accuchecks 05/07/18 05/07/18 05/06/18 10:51 05:53 21:19 POC Glucose 162 H 172 H 233 H Labs reviewed by me Phys Exam - Physical Examination Obese HEENT: moist MMs, sclera anicteric, oral pharynx no lesions, 2+ tonsils Neck: no nodes, no JVD, supple, full ROM Respiratory: no wheezing, no rales, no rhonchi, clear to auscultation bilateral Cardiovascular: RRR, no rub S1, S2 Gastrointestinal: soft, non-tender, no distention, positive bowel sounds Neurological: normal sensation, moves all 4 limbs keeping eyes closed Psychiatric: normal affect, A&O x 3 Dx/Plan (1) Vertigo Code(s): R42 - DIZZINESS AND GIDDINESS Status: Acute Comment: central vs peripheral; await MRI. On meclizine trial. Carotid doppler unremarkable. (2) Dyslipidemia Code(s): E78.5 - HYPERLIPIDEMIA, UNSPECIFIED Status: Chronic Comment: started statin yesterday, continue (3) CAD (coronary artery disease) Code(s): I25.10 - ATHSCL HEART DISEASE OF [place] CORONARY ARTERY W/O ANG PCTRS Status: Chronic Qualifiers: Comment: stable (4) CKD (chronic kidney disease) stage 3, GFR 30-59 ml/min Status: Chronic Comment: stable (5) DM type 2 (diabetes mellitus, type 2) Status: Chronic Qualifiers: Comment: continue accuchecks, insulin sliding scale. Start lantus (6) HTN (hypertension) Code(s): I10 - ESSENTIAL (PRIMARY) HYPERTENSION Status: Chronic Qualifiers: Comment: hypertensive urgency has resolved, resume home medications. Mild hypokalemia, discontinue HCTZ - Plan PT/OT, DVT proph w/heparin * . Review of Systems - Review of Systems Constitutional: negative: fever, chills, sweats, weakness, malaise Respiratory: negative: Cough, Shortness of Breath, SOB with Excertion, Pleuritic Pain, Wheezing Cardiovascular: negative: chest pain, palpitations, orthopnea, paroxysmal nocturnal dyspnea, edema, light headedness Gastrointestinal: Nausea. negative: Vomiting, Abdominal Pain, Diarrhea, Constipation, Melena, Hematochezia Genitourinary: negative: Dysuria, Frequency, Incontinence, Hematuria, Retention Neurological: Other (vertigo). negative: Weakness, Numbness, Incoordination, Change in Speech, Confusion, Seizures - Medications/Allergies Allergies/Adverse Reactions: Allergies Allergy/AdvReac Type Severity Reaction Status Date / Time ciprofloxacin Allergy Verified 05/06/18 20:44 lisinopril Allergy Anaphylaxis Verified 05/06/18 20:44 Medications: Current Medications Acetaminophen (Tylenol) 650 mg PO Q4H PRN PRN Reason: Headache/Fever/Mild Pain (1-3) Last Admin: 05/06/18 20:01 Dose: 650 mg Acetaminophen (Tylenol) 650 mg [place] Q4H PRN PRN Reason: Headache/Fever/Mild Pain (1-3) Amlodipine Besylate (Norvasc) 10 mg PO DAILY [facility] Last Admin: 05/07/18 09:07 Dose: 10 mg Aspirin (Ecotrin) 325 mg PO DAILY [facility] Last Admin: 05/07/18 09:05 Dose: 325 mg Atorvastatin Calcium (Lipitor) 40 mg PO HS [facility] Last Admin: 05/06/18 20:00 Dose: 40 mg Carvedilol (Coreg) 25 mg PO BID-[facility] Last Admin: 05/07/18 09:05 Dose: 25 mg Clonidine (Catapres) 0.1 mg PO Q4H PRN PRN Reason: SBP Greater Than 180 Last Admin: 05/06/18 22:56 Dose: 0.1 mg Dextrose/Water (Dextrose 50%) 25 gm SLOW IVP PRN PRN PRN Reason: Hypoglycemia Enoxaparin Sodium (Lovenox) 40 mg SC 0900 [facility] Last Admin: 05/07/18 09:11 Dose: 40 mg Gabapentin (Neurontin) 300 mg PO TID [facility] Last Admin: 05/07/18 09:05 Dose: 300 mg Gabapentin (Neurontin) 300 mg PO TID [facility] Last Admin: 05/07/18 09:11 Dose: Not Given Glucagon (Glucagon) 1 mg IM PRN PRN PRN Reason: Hypoglycemia Hydralazine HCl (Apresoline) 10 mg SLOW IVP Q6H PRN PRN Reason: SBP Greater Than 170 Last Admin: 05/06/18 20:01 Dose: 10 mg Hydralazine HCl (Apresoline) 25 mg PO TID [facility] Last Admin: 05/07/18 09:10 Dose: 25 mg Hydrochlorothiazide (Hydrochlorothiazide) 12.5 mg PO DAILY [facility] Last Admin: 05/07/18 09:10 Dose: 12.5 mg Dextrose/Water (D5w) 1,000 mls @ 0 mls/hr IV .Q0M PRN PRN Reason: Hypoglycemia Insulin Glargine 80 units/ (Miscellaneous Medication) 0.8 mls @ 0 mls/hr SC BID [facility] Last Admin: 05/07/18 09:16 Dose: 0.8 mls Insulin Human Regular (Humulin R) 0 units SC .MODERATE SLIDING SC PRN PRN Reason: Moderate Correctional Scale Last Admin: 05/07/18 12:52 Dose: 2 unit Isosorbide Mononitrate (Imdur Er) 60 mg PO DAILY [facility] Last Admin: 05/07/18 09:04 Dose: 60 mg Labetalol HCl (Normodyne) 10 mg SLOW IVP Q6H PRN PRN Reason: SBP Greater Than 180 Last Admin: 05/06/18 19:06 Dose: 10 mg Losartan Potassium (Cozaar) 50 mg PO DAILY [facility] Last Admin: 05/07/18 09:09 Dose: 50 mg Meclizine HCl (Antivert) 25 mg PO Q8H [facility] Last Admin: 05/07/18 09:21 Dose: 25 mg Metformin HCl (Glucophage) 1,000 mg PO BID-[facility] Last Admin: 05/07/18 09:07 Dose: 1,000 mg Ondansetron HCl (Zofran) 4 mg IVP Q6H PRN PRN Reason: Nausea/Vomiting Last Admin: 05/06/18 19:07 Dose: 4 mg Pantoprazole Sodium (Protonix) 40 mg PO DAILY [facility] Last Admin: 05/07/18 09:09 Dose: 40 mg Senna/Docusate Sodium (Senokot S) 2 tab PO BID PRN PRN Reason: Constipation Sodium Chloride (Flush - Normal Saline) 10 ml IVF PRN PRN PRN Reason: Saline Flush Tizanidine HCl (Zanaflex) 4 mg PO TID [facility] Last Admin: 05/07/18 09:05 Dose: 4 mg Tramadol HCl (Ultram) 50 mg PO Q6H PRN PRN Reason: Pain 4-6 Last Admin: 05/07/18 09:06 Dose: 50 mg
--- NOTE | 2018-05-07 15:32 | MRI ---
MRI BRAIN WITHOUT CONTRAST: Date: 05/07/18 HISTORY: Dizziness. Headache. TIA. FINDINGS: Correlation is made with the previous day's CT scan. No restricted diffusion is seen. No evidence of infarct, hemorrhage, midline shift, or abnormal extra -axial fluid collections are noted. The ventricular size is appropriate and the basilar cisterns are patent. The visualized paranasal sinuses and mastoid air cells are well aerated. No tonsillar herniat ion is seen. Postop T2 prolongation in the periventricular white matter consistent with mild chronic small vessel ischemic disease. IMPRESSION: No evidence of acute intracranial process. POS: [facility]
[2018-05-07] MEDS ORDERED: Carvedilol 25 MG TAB PO SCH (17:00)
[2018-05-07 17:29] LABS: Amphetamine Not Detected (NotDetected); Barbiturates Screen Not Detected (NotDetected); Benzodiazepine Screen Not Detected (NotDetected); Cocaine Metabolite Screen Detected (NotDetected); Medtox Control Line Valid? VALID (VALID); Medtox Reader # READER 1; Methadone Not Detected (NotDetected); Methamphetamine Not Detected (NotDetected); Opiate Screen Not Detected (NotDetected); Oxycodone Screen Not Detected (NotDetected); Phencyclidine (PCP) Not Detected (NotDetected); THC/Cannabinoid Screen Not Detected (NotDetected); Tricyclic Screen Not Detected (NotDetected)
[2018-05-07] MEDS: Acetaminophen 325 MG TAB PO PRN (21:53)
[2018-05-07] MEDS: Atorvastatin Calcium 40 MG TAB PO SCH (21:54)
--- NOTE | 2018-05-08 03:41 | CON ---
DATE OF CONSULTATION: 05/07/2018 CHIEF COMPLAINT: Dizziness. HISTORY OF PRESENT ILLNESS: Patient is a 42-year-old lady who was seen here for evaluation of her di zziness. Patient reports she woke up yesterday and fell into the bed, feeling very dizzy. Her husba nd helped her back in bed. She felt nauseous. She told her daughter to bring her trash can and she had vomiting and bowel movement, luckily, she was in the bathroom on the toilet at that time. She fe lt better when she went to lay down. She woke up to go to the bathroom again and thought it for hear t attack in 2016 and she developed chest pain. She then asked her daughter to call the ambulance. S he felt spinning sensation. No tinnitus, no earache. Patient has been admitted more recently in 12/31 for a right foot surgery. PAST MEDICAL HISTORY: Patient is an insulin-dependent diabetics, gastroesophageal reflux disease, hy pertension, chronic back pain, osteomyelitis of the right foot, restless leg syndrome, chronic kidney disease stage 3, and coronary artery disease. 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 She had a tonsillectomy, bilateral tubal ligation, cardiac catheterization for non-ST eleva tion [place] in 2015. She also had a right foot surgery. FAMILY HISTORY: Patient has one brother who is 39 years old. Patient's father was murdered and at age 36. Mother is 63. Patient has 2 children, daughter age 19 and is type 2 diabetic and son is 17 years old. SOCIAL HISTORY: Patient lives with her and 5 children. She does not drink alcohol, she did use cocaine in the last few months ago and she smokes cigarettes. It more or like 1-2 cigarettes epifanio ry 2 weeks. She has not smoked since last . ALLERGIES: She is allergic to CIPROFLOXACIN and LISINOPRIL both caused anaphylactic reaction. CURRENT MEDICATIONS: Reviewed and she takes amlodipine, hydrochlorothiazide, Levemir insulin and met formin as noted in her chart. LABORATORY DATA: Includes white count 10.4, hemoglobin 10.8, hematocrit 33.6, platelets 254. Chemis try: Sodium 133, potassium 4.0, chloride 100, bicarbonate 24, BUN 20, creatinine 1.86, glucose 206, triglycerides 548, cholesterol 353 and urine toxicology screen is positive for cocaine and her other reports, CT scan of the head showed no acute intracranial abnormality. MRI scan report was reported after I saw the patient, and it does not show any acute intracranial process, particularly no acute i nfarct. She does have chronic microvascular disease. Echocardiogram showed LVEF at 55%-60%, moderat e concentric left ventricular hypertrophy, mild mitral regurgitation, mild tricuspid regurgitation an d aortic valve sclerosis and she also completed her carotid Doppler study, which showed no hemodynami gautam significant stenosis. PHYSICAL EXAMINATION: VITAL SIGNS: Blood pressure was 102/54, temperature 97.5, pulse 65, respiratory rate was 12. GENERAL APPEARANCE: Well-built, well-nourished lady who tends to keep her eyes closed. She states t hat because she feels comfortable that way and also has headaches when she opened her eyes. She also has dressing on her right foot. CHEST: Clear vesicular breathing. CARDIOVASCULAR: S1, S2 heard, no murmurs. Carotids are clear. ABDOMEN: Soft, nontender. NEUROLOGICAL: Higher intellectual functions, normal orientation to time, place, person and cranial n erves II through XII normal pupillary reaction. No facial asymmetry. Normal extraocular movement. Tongue midline, no atrophy noted. Palate elevation is normal. Normal hearing to finger rub bilatera lly. Normal sensation of face bilaterally. Motor examination: Bulk normal, tone normal, strength 5 /5 throughout in iliopsoas, hamstrings, quadriceps, ankle dorsiflexion and plantar flexion, deltoid, biceps, triceps, wrist extension/flexion, finger extension and flexion bilaterally. Deep tendon refl exes are 2+. SENSORY: Normal to touch and proprioception. CEREBELLAR: Exam was normal. IMPRESSION: Patient with history of vertigo upon review of her medical history, he has not had verti go in the past. She did have some chest pain as well associated with this visit. She did report spi nning sensation, but no tinnitus or ear ache. She did throw up with this vertigo. Her neurological examination is normal. Her laboratory findings are positive for cocaine in her urine. MRI is negati ve for any acute stroke and carotid Doppler is also unremarkable. Echocardiogram shows normal ejecti on fraction. Clinical diagnosis is consistent with possible peripheral vertigo and possible vasospas m in association with cocaine use. RECOMMENDATIONS: Please start her on antiplatelet agent. I agree with aspirin for stroke prevention in this case and modification of risk factors including education about drug use. Please refer her E NT physician as outpatient with dizziness does not resolve. We can also try scopolamine patch if blo od pressure management does not improve her dizziness. I do think this could be associated with labi le hypertension. Please call Neurology if you have any further questions.
[2018-05-08] MEDS: Meclizine HCl 25 MG TAB PO SCH ×3 (04:13→17:59)
[2018-05-08 04:47] LABS: #Eosinphils 0.1 thou/uL (0.0-0.7); #Lymphocytes 2.4 thou/uL (1.20-3.40); #Monocytes 0.5 thou/uL (0.11-0.59); #Neutrophils 5.4 thou/uL (1.40-6.50); %Basophils 0.1 % (0.0-1.0); %Eosinophils 0.8 % (0.0-10.0); %Lymphocytes 28.9 % (21.0-51.0); %Monocytes 5.8 % (0.0-10.0); %Neutrophils 64.4 % (42.0-75.0); Hemoglobin 10.6 g/dL (12.0-16.0); Mean Corpuscular HGB CONC 34.1 g/dL (32.0-36.0); Mean Corpuscular Hemoglobin 30.2 pg (27.0-31.0); Mean Corpuscular Volume 88.4 fL (78.0-98.0); Mean Platelet Volume 9.4 fL (7.4-10.4); Platelet Count 206 thou/uL (130-400); RBC Distribution Width 11.8 % (11.5-14.5); Red Blood Cell (RBC) Count 3.53 mill/uL (4.20-5.40); White Blood Cell (WBC) Count 8.4 thou/uL (4.8-10.8)
[2018-05-08 05:08] LABS: Anion Gap 14 mmol/L (10-20); BUN (Urea Nitrogen) 25 mg/dL (7.0-18.7); Calc. Creatinine Clearance 50 mL/min (70-130); Calcium 7.7 mg/dL (7.8-10.44); Carbon Dioxide 20 mmol/L (22-29); Chloride 100 mmol/L (98-107); Estimated GFR-MDRD 22; Glucose 265 mg/dL (70-105); Potassium 4.1 mmol/L (3.5-5.1); Sodium 130 mmol/L (136-145)
[2018-05-08] MEDS: Insulin Regular 300 UNITS/3 ML VIAL SC PRN ×2 (07:43→18:05)
[2018-05-08] MEDS: Gabapentin 300 MG CAP PO SCH ×4 (07:57→20:36)
[2018-05-08] MEDS: Heparin 5,000 UNITS/ML VIAL SC SCH ×3 (09:20→20:45)
[2018-05-08] MEDS: Insulin Glargine 80 UNITS in Pre-Filled Syringe 1 EACH SC SCH ×2 (09:20→20:44)
[2018-05-08] MEDS: tiZANidine HCl 4 MG TAB PO SCH ×3 (09:25→20:37)
[2018-05-08] MEDS: Acetaminophen 325 MG TAB PO PRN ×3 (09:26→20:35)
[2018-05-08] MEDS: hydrALAZINE 25 MG TAB PO SCH ×3 (09:27→20:43)
[2018-05-08] MEDS: Hydrochlorothiazide 25 MG TAB PO SCH (09:28)
[2018-05-08] MEDS: Aspirin 325 mg Enteric Coated Tablet PO SCH (09:29)
[2018-05-08] MEDS: Amlodipine 10 MG TAB PO SCH (09:29)
[2018-05-08] MEDS: Carvedilol 25 MG TAB PO SCH ×2 (09:31→17:59)
[2018-05-08] MEDS: metFORMIN 500 MG TAB PO SCH (09:54)
[2018-05-08] MEDS: Sodium Chloride 0.9% 1,000 ML IV SCH ×2 (10:58→23:51)
--- NOTE | 2018-05-08 13:36 | PDOC.PN ---
- Subjective Encounter Start Date: 05/08/18 Encounter Start Time: 07:20 Pt seen for followup re: vertigo. Feels slightly better. No nausea or vomiting. Feels weak. - Objective MAR Reviewed: Yes Vital Signs & Weight: Vital Signs (12 hours) Temp Pulse Pulse Resp BP BP Pulse Ox 05/08/18 11:25 99.7 F H 74 16 116/63 93 L 05/08/18 10:01 77 116/56 L 05/08/18 09:29 78 05/08/18 09:27 78 05/08/18 07:38 99.1 F 76 16 193/95 H 96 05/08/18 04:00 98.9 F 74 19 120/56 L 93 L Weight Admit Weight 227 lb 6.4 oz Weight 224 lb 6 oz I&O: 05/07/18 05/08/18 05/09/18 06:59 06:59 06:59 Intake Total 2880 Output Total 1500 Balance 1380 Result Diagrams: 05/08/18 04:11 05/08/18 04:11 Additional Labs: Accuchecks 05/08/18 05/08/18 05/07/18 10:28 05:51 20:09 POC Glucose 137 H 204 H 271 H 05/07/18 16:48 POC Glucose 246 H Labs reviewed by me EKG Reviewed by me: Yes (Tele: [facility]) Phys Exam - Physical Examination Obese HEENT: moist MMs, sclera anicteric, oral pharynx no lesions, 2+ tonsils Neck: no nodes, no JVD, supple, full ROM Respiratory: no wheezing, no rales, no rhonchi, clear to auscultation bilateral Cardiovascular: RRR, no rub S1, S2 Gastrointestinal: soft, non-tender, no distention, positive bowel sounds Neurological: moves all 4 limbs Psychiatric: normal affect, A&O x 3 Dx/Plan (1) Vertigo Code(s): R42 - DIZZINESS AND GIDDINESS Status: Acute Comment: MRI normal, continue meclizine. (2) Acute worsening of stage 3 chronic kidney disease Code(s): N18.3 - CHRONIC KIDNEY DISEASE, STAGE 3 (MODERATE) Status: Acute Comment: start IV fluids, hold metformin, HCTZ and ARB. (3) Dyslipidemia Code(s): E78.5 - HYPERLIPIDEMIA, UNSPECIFIED Status: Chronic Comment: continue statin (4) CAD (coronary artery disease) Code(s): I25.10 - ATHSCL HEART DISEASE OF [place] CORONARY ARTERY W/O ANG PCTRS Status: Chronic Qualifiers: Comment: stable (5) DM type 2 (diabetes mellitus, type 2) Status: Chronic Qualifiers: Comment: continue accuchecks, insulin sliding scale. Start lantus (6) HTN (hypertension) Code(s): I10 - ESSENTIAL (PRIMARY) HYPERTENSION Status: Chronic Qualifiers: Comment: hypertensive urgency has resolved, resume home medications. Mild hypokalemia, discontinue HCTZ - Plan PT/OT * . +ve cocaine drug test- pt counseled re: cocaine and tobacco cessation. Review of Systems - Review of Systems Constitutional: weakness. negative: fever, chills, sweats, malaise Respiratory: negative: Cough, Shortness of Breath, SOB with Excertion, Pleuritic Pain, Wheezing Cardiovascular: negative: chest pain, palpitations, orthopnea, paroxysmal nocturnal dyspnea, edema, light headedness Genitourinary: negative: Dysuria, Frequency, Incontinence, Hematuria, Retention Musculoskeletal: negative: Neck Pain, Shoulder Pain, Arm Pain, Back Pain, Hand Pain, Leg Pain, Foot Pain - Medications/Allergies Allergies/Adverse Reactions: Allergies Allergy/AdvReac Type Severity Reaction Status Date / Time ciprofloxacin Allergy Verified 05/06/18 20:44 lisinopril Allergy Anaphylaxis Verified 05/06/18 20:44 Medications: Current Medications Acetaminophen (Tylenol) 650 mg PO Q4H PRN PRN Reason: Headache/Fever/Mild Pain (1-3) Last Admin: 05/08/18 09:26 Dose: 650 mg Acetaminophen (Tylenol) 650 mg [place] Q4H PRN PRN Reason: Headache/Fever/Mild Pain (1-3) Amlodipine Besylate (Norvasc) 10 mg PO DAILY [facility] Last Admin: 05/08/18 09:29 Dose: 10 mg Aspirin (Ecotrin) 325 mg PO DAILY [facility] Last Admin: 05/08/18 09:29 Dose: 325 mg Atorvastatin Calcium (Lipitor) 40 mg PO HS [facility] Last Admin: 05/07/18 21:54 Dose: 40 mg Carvedilol (Coreg) 25 mg PO BID-[facility] Last Admin: 05/08/18 09:31 Dose: Not Given Clonidine (Catapres) 0.1 mg PO Q4H PRN PRN Reason: SBP Greater Than 180 Last Admin: 05/06/18 22:56 Dose: 0.1 mg Dextrose/Water (Dextrose 50%) 25 gm SLOW IVP PRN PRN PRN Reason: Hypoglycemia Gabapentin (Neurontin) 300 mg PO TID [facility] Last Admin: 05/08/18 09:28 Dose: 300 mg Glucagon (Glucagon) 1 mg IM PRN PRN PRN Reason: Hypoglycemia Heparin Sodium (Porcine) (Heparin) 5,000 units SC TID [facility] Last Admin: 05/08/18 09:20 Dose: 5,000 units Hydralazine HCl (Apresoline) 10 mg SLOW IVP Q6H PRN PRN Reason: SBP Greater Than 170 Last Admin: 05/06/18 20:01 Dose: 10 mg Hydralazine HCl (Apresoline) 25 mg PO TID [facility] Last Admin: 05/08/18 09:27 Dose: 25 mg Dextrose/Water (D5w) 1,000 mls @ 0 mls/hr IV .Q0M PRN PRN Reason: Hypoglycemia Insulin Glargine 80 units/ (Miscellaneous Medication) 0.8 mls @ 0 mls/hr SC BID [facility] Last Admin: 05/08/18 09:20 Dose: 0.8 mls Sodium Chloride (Normal Saline 0.9%) 1,000 mls @ 100 mls/hr IV .Q10H [facility] Last Admin: 05/08/18 10:58 Dose: 1,000 mls Insulin Human Regular (Humulin R) 0 units SC .MODERATE SLIDING SC PRN PRN Reason: Moderate Correctional Scale Last Admin: 05/08/18 07:43 Dose: 4 unit Isosorbide Mononitrate (Imdur Er) 60 mg PO DAILY [facility] Last Admin: 05/08/18 09:25 Dose: 60 mg Labetalol HCl (Normodyne) 10 mg SLOW IVP Q6H PRN PRN Reason: SBP Greater Than 180 Last Admin: 05/06/18 19:06 Dose: 10 mg Meclizine HCl (Antivert) 25 mg PO Q8H [facility] Last Admin: 05/08/18 09:26 Dose: 25 mg Ondansetron HCl (Zofran) 4 mg IVP Q6H PRN PRN Reason: Nausea/Vomiting Last Admin: 05/06/18 19:07 Dose: 4 mg Pantoprazole Sodium (Protonix) 40 mg PO DAILY [facility] Last Admin: 05/08/18 09:26 Dose: 40 mg Senna/Docusate Sodium (Senokot S) 2 tab PO BID PRN PRN Reason: Constipation Sodium Chloride (Flush - Normal Saline) 10 ml IVF PRN PRN PRN Reason: Saline Flush Last Admin: 05/08/18 09:22 Dose: 10 ml Tizanidine HCl (Zanaflex) 4 mg PO TID [facility] Last Admin: 05/08/18 09:25 Dose: 4 mg Tramadol HCl (Ultram) 50 mg PO Q6H PRN PRN Reason: Pain 4-6 Last Admin: 05/07/18 16:35 Dose: 50 mg
[2018-05-08 19:49] LABS: Anion Gap 12 mmol/L (10-20); BUN (Urea Nitrogen) 26 mg/dL (7.0-18.7); Calc. Creatinine Clearance 50 mL/min (70-130); Calcium 8.2 mg/dL (7.8-10.44); Carbon Dioxide 22 mmol/L (22-29); Chloride 102 mmol/L (98-107); Estimated GFR-MDRD 23; Glucose 244 mg/dL (70-105); Potassium 4.8 mmol/L (3.5-5.1); Sodium 131 mmol/L (136-145)
[2018-05-08] MEDS: Atorvastatin Calcium 40 MG TAB PO SCH (20:37)
[2018-05-09] MEDS: Meclizine HCl 25 MG TAB PO SCH ×3 (02:32→16:14)
[2018-05-09] MEDS: Insulin Regular 300 UNITS/3 ML VIAL SC PRN ×2 (06:14→19:13)
[2018-05-09] MEDS: traMADol HCl 50 MG TAB PO PRN ×2 (06:18→14:38)
[2018-05-09] MEDS: Sodium Chloride 0.9% 1,000 ML IV SCH ×2 (08:00→19:09)
[2018-05-09] MEDS: tiZANidine HCl 4 MG TAB PO SCH ×3 (08:01→20:37)
[2018-05-09] MEDS: Gabapentin 300 MG CAP PO SCH ×3 (08:01→20:37)
[2018-05-09] MEDS: Amlodipine 10 MG TAB PO SCH (08:02)
[2018-05-09] MEDS: Carvedilol 25 MG TAB PO SCH ×2 (08:03→18:54)
[2018-05-09] MEDS: Aspirin 325 mg Enteric Coated Tablet PO SCH (08:03)
[2018-05-09] MEDS: hydrALAZINE 25 MG TAB PO SCH ×3 (08:03→20:37)
[2018-05-09] MEDS: Heparin 5,000 UNITS/ML VIAL SC SCH ×3 (08:03→20:40)
[2018-05-09] MEDS: Insulin Glargine 80 UNITS in Pre-Filled Syringe 1 EACH SC SCH ×2 (09:27→20:38)
[2018-05-09] MEDS: Acetaminophen 325 MG TAB PO PRN ×2 (12:13→22:11)
--- NOTE | 2018-05-09 13:08 | PDOC.PN ---
- Subjective Encounter Start Date: 05/09/18 Encounter Start Time: 13:07 Ms. Goldman was seen today in follow-up of Hypertensive Urgency. She says she continues to be dizzy. She is also concerned about her renal function. She become tearful and says she is not ready to go home today. - Objective MAR Reviewed: Yes Vital Signs & Weight: Vital Signs (12 hours) Temp Pulse Resp BP BP Pulse Ox 05/09/18 12:00 99.6 F 74 20 113/59 L 93 L 05/09/18 08:03 84 181/96 H 05/09/18 08:02 84 181/96 H 05/09/18 08:00 99.8 F H 84 18 181/96 H 96 05/09/18 04:00 99.0 F 76 16 169/82 H 92 L Weight Admit Weight 227 lb 6.4 oz Weight 235 lb 3.2 oz I&O: 05/08/18 05/09/18 05/10/18 06:59 06:59 06:59 Intake Total 2880 3916 Output Total 1500 Balance 1380 3916 Result Diagrams: 05/08/18 04:11 05/08/18 19:22 Additional Labs: Accuchecks 05/09/18 05/09/18 05/08/18 10:46 05:49 20:34 POC Glucose 111 H 158 H 306 H 05/08/18 16:23 POC Glucose 266 H Phys Exam - Physical Examination HEENT: PERRLA, sclera anicteric Respiratory: no wheezing, no rales, no rhonchi, clear to auscultation bilateral Cardiovascular: RRR, no significant murmur, no rub Gastrointestinal: soft, non-tender, no distention, positive bowel sounds Musculoskeletal: no edema Neurological: non-focal, moves all 4 limbs Dx/Plan (1) Hypertensive urgency Code(s): I16.0 - HYPERTENSIVE URGENCY Status: Acute (2) Acute worsening of stage 3 chronic kidney disease Code(s): N18.3 - CHRONIC KIDNEY DISEASE, STAGE 3 (MODERATE) Status: Acute Comment: start IV fluids, hold metformin, HCTZ and ARB. (3) Vertigo Code(s): R42 - DIZZINESS AND GIDDINESS Status: Acute Comment: MRI normal, continue meclizine. (4) DM type 2 (diabetes mellitus, type 2) Status: Chronic Qualifiers: Comment: continue accuchecks, insulin sliding scale. Start lantus - Plan * Hypertensive Urgency- her blood pressure has improved with re-starting of her medications * Acute Kidney Injury- this is likely due to elevated blood pressure, and now acutely lowered, and transient decrease in effective renal flow- hopefully this should improve in the next day or two. Will recheck her creatinine in the AM * Vertigo- treat symptomatically * DM- will need to continue to hold Metformin due to her renal function- until GFR is 50 or greater * Hopefully home tomorrow
[2018-05-09] MEDS: Atorvastatin Calcium 40 MG TAB PO SCH (20:37)
[2018-05-10] MEDS: Meclizine HCl 25 MG TAB PO SCH ×2 (01:42→08:24)
[2018-05-10] MEDS: Sodium Chloride 0.9% 1,000 ML IV SCH ×2 (04:57→08:24)
[2018-05-10 05:30] LABS: Anion Gap 14 mmol/L (10-20); BUN (Urea Nitrogen) 23 mg/dL (7.0-18.7); Calc. Creatinine Clearance 61 mL/min (70-130); Calcium 7.8 mg/dL (7.8-10.44); Carbon Dioxide 20 mmol/L (22-29); Chloride 102 mmol/L (98-107); Estimated GFR-MDRD 27; Glucose 418 mg/dL (70-105); Potassium 4.5 mmol/L (3.5-5.1); Sodium 131 mmol/L (136-145)
[2018-05-10] MEDS: Insulin Regular 300 UNITS/3 ML VIAL SC PRN ×2 (06:29→11:11)
[2018-05-10] MEDS: Acetaminophen 325 MG TAB PO PRN (08:23)
[2018-05-10] MEDS: Heparin 5,000 UNITS/ML VIAL SC SCH ×2 (08:23→14:57)
[2018-05-10] MEDS: Amlodipine 10 MG TAB PO SCH (08:24)
[2018-05-10] MEDS: Gabapentin 300 MG CAP PO SCH ×2 (08:24→14:57)
[2018-05-10] MEDS: hydrALAZINE 25 MG TAB PO SCH ×2 (08:24→14:57)
[2018-05-10] MEDS: Aspirin 325 mg Enteric Coated Tablet PO SCH (08:24)
[2018-05-10] MEDS: Carvedilol 25 MG TAB PO SCH (08:24)
[2018-05-10] MEDS: tiZANidine HCl 4 MG TAB PO SCH ×2 (09:44→14:57)
[2018-05-10] MEDS: Insulin Glargine 80 UNITS in Pre-Filled Syringe 1 EACH SC SCH (09:45)
--- NOTE | 2018-05-10 10:06 | PDOC.PN ---
- Subjective Encounter Start Date: 05/10/18 Encounter Start Time: 10:04 Ms. Goldman was seen today in follow-up of Hypertensive Urgency. She says she is feeling better this morning. She says the dizziness has improved. - Objective MAR Reviewed: Yes Vital Signs & Weight: Vital Signs (12 hours) Temp Pulse Resp BP BP Pulse Ox 05/10/18 08:24 72 189/91 H 05/10/18 07:52 97.5 F L 72 18 189/91 H 96 05/10/18 03:20 98.3 F 69 12 167/87 H 94 L 05/09/18 23:26 97.6 F 68 18 142/73 H 97 Weight Admit Weight 227 lb 6.4 oz Weight 243 lb 9.6 oz I&O: 05/09/18 05/10/18 05/11/18 06:59 06:59 06:59 Intake Total 3916 4982 Balance 3916 4982 Result Diagrams: 05/08/18 04:11 05/10/18 04:33 Additional Labs: Accuchecks 05/10/18 05/09/18 05/09/18 06:19 20:45 17:13 POC Glucose 363 H 368 H 219 H 05/09/18 10:46 POC Glucose 111 H Phys Exam - Physical Examination HEENT: PERRLA Respiratory: no wheezing, no rales, no rhonchi, clear to auscultation bilateral Cardiovascular: RRR, no significant murmur, no rub Gastrointestinal: soft, non-tender, no distention, positive bowel sounds Musculoskeletal: no edema Dx/Plan (1) Hypertensive urgency Code(s): I16.0 - HYPERTENSIVE URGENCY Status: Acute (2) Acute worsening of stage 3 chronic kidney disease Code(s): N18.3 - CHRONIC KIDNEY DISEASE, STAGE 3 (MODERATE) Status: Acute Comment: start IV fluids, hold metformin, HCTZ and ARB. (3) Vertigo Code(s): R42 - DIZZINESS AND GIDDINESS Status: Acute Comment: MRI normal, continue meclizine. (4) DM type 2 (diabetes mellitus, type 2) Status: Chronic Qualifiers: Comment: continue accuchecks, insulin sliding scale. Start lantus - Plan * Hypertensive Urgency- improved * Renal function is improving * She is stable for discharge home.
[2018-05-10 11:41] VITALS: TEMP 98.2
--- NOTE | 2018-05-10 14:19 | DIS ---
DATE OF ADMISSION: 05/06/2018 DATE OF DISCHARGE: 05/10/2018 PRIMARY CARE PHYSICIAN: Indiana King M.D. DISCHARGE DISPOSITION: Home. PRIMARY DISCHARGE DIAGNOSES: 1. Hypertensive urgency. 2. Diabetes mellitus, uncontrolled. 3. Hypertension, poorly controlled. 4. Vertigo. 5. Acute on chronic kidney disease. DISCHARGE MEDICATIONS: Include Imdur extended release 60 mg daily, meclizine 25 mg q.8 hours as need ed, Tramadol 50 mg q.6 hours as needed, Lantus insulin 86 units twice a day, hydralazine 25 mg t.i.d. , NovoLog insulin units t.i.d. on a sliding scale basis, Neurontin 300 mg t.i.d., Nexium 20 mg daily, carvedilol 25 mg twice daily, amlodipine 10 mg daily, trazodone 50 mg at bedtime, Tylenol, dip henhydramine 1 tablet at bedtime. PROCEDURES DONE DURING ADMISSION: The patient had a CT scan of the brain which was negative for any acute intracranial abnormalities. The patient also had bilateral carotid Dopplers showing no hemodyn amically significant stenosis. She had an echocardiogram in which the ejection fraction was estimate d at 55%-60%. There was moderate concentric left ventricular hypertrophy and aortic valve sclerosis. The patient had an MRI of the brain showing no evidence of any acute intracranial process. CODE STATUS: FULL CODE. ALLERGIES: CIPROFLOXACIN and LISINOPRIL. HOSPITAL COURSE: Ms. Goldman is a pleasant 42-year-old female who presented to the emergency room com plaining of dizziness and feeling off balance. She also felt somewhat nauseated. She also mentioned that she had run out of medication as she was unable to afford it due to an interruption in her insu kelly. She was found to have an extremely elevated blood pressure on admission and was admitted for hypertensive urgency. Her blood pressure initially was 184/114. There was also concern due to the d izziness that she could be having a TIA like symptoms; however, this was ruled out. She was seen by Neurology and the neurologist felt that her dizziness was most likely related to vertigo and likely t here is some contribution with her elevated blood pressure as well. Her creatinine did increase slig htly during her hospital stay Likely due to the hypertensive urgency; however, this was trending down at the time of discharge. We discussed the need for compliance with medications and also close foll ow up in optimal control of her blood pressure and diabetes, so that she will not have further worsen ing of her renal function. Also, it was noted that she did have a urine drug screen which was positi ve for cocaine. The patient was clinically stable at the time of discharge. Her blood pressure was beginning to trend down. She states that her has insurance coverage for both of them startin g this month and therefore she will be discharged home with close outpatient followup.
[2018-05-10 15:05] VITALS: BP 160/79
== END 2018-05-10 15:40 | disposition home or self-care (01) | DRG 305 ==
LOC: ERS 12:09 → 2SE 15:57
PROVIDERS: ADMIT Internal Medicine; ATTEND Internal Medicine
DX: I16.0 Hypertensive urgency (principal); N17.9 Acute kidney failure, unspecified; E11.65 Type 2 diabetes mellitus with hyperglycemia; M19.90 Unspecified osteoarthritis, unspecified site; N18.3 Chronic kidney disease, stage 3 (moderate); E11.22 Type 2 diabetes mellitus with diabetic chronic kidney disease; I25.10 Atherosclerotic heart disease of native coronary artery without angina pectoris; I25.2 Old myocardial infarction; R42 Dizziness and giddiness; E87.6 Hypokalemia; E78.5 Hyperlipidemia, unspecified; E11.621 Type 2 diabetes mellitus with foot ulcer; F14.10 Cocaine abuse, uncomplicated; K21.9 Gastro-esophageal reflux disease without esophagitis; I12.9 Hypertensive chronic kidney disease with stage 1 through stage 4 chronic kidney disease, or unspecified chronic kidney disease; M54.9 Dorsalgia, unspecified; G89.29 Other chronic pain; G25.81 Restless legs syndrome; Z88.1 Allergy status to other antibiotic agents; Z88.8 Allergy status to other drugs, medicaments and biological substances; Z79.4 Long term (current) use of insulin; Z79.84 Long term (current) use of oral hypoglycemic drugs; Z79.899 Other long term (current) drug therapy; Z79.82 Long term (current) use of aspirin
CPT/HCPCS: 36415; 36416; 70450; 70551; 71045; 80048; 80053; 80061; 80306; 82550; 82553; 84484; 84703; 85025; 93005; 93306; 93880; G8978-GP-CM; G8979-GP-CJ; G8987-GO-CJ; G8988-GO-CI; G8996-GN-CI; G8997-GN-CI; J0360; J1644; J1650; J1815; J2405

== ENCOUNTER 2018-10-21 20:46 | Emergency (ER) | payer OTHER ==
[2018-10-21] MEDS ORDERED: Labetalol HCl 100 MG/20 ML VIAL ONE (21:35)
[2018-10-21] MEDS ORDERED: Ondansetron PF 4 MG/2 ML Vial ONE (21:35)
[2018-10-21 21:59] LABS: #Lymphocytes 1.6 thou/uL (1.20-3.40); #Monocytes 0.3 thou/uL (0.11-0.59); #Neutrophils 9.2 thou/uL (1.40-6.50); %Basophils 0.1 % (0.0-1.0); %Eosinophils 0.2 % (0.0-10.0); %Monocytes 2.5 % (0.0-10.0); %Neutrophils 83.3 % (42.0-75.0); Hemoglobin 13.9 g/dL (12.0-16.0); Mean Corpuscular HGB CONC 33.9 g/dL (32.0-36.0); Mean Corpuscular Hemoglobin 29.4 pg (27.0-31.0); Mean Corpuscular Volume 86.6 fL (78.0-98.0); Mean Platelet Volume 8.4 fL (7.4-10.4); Platelet Count 285 thou/uL (130-400); RBC Distribution Width 12.5 % (11.5-14.5); Red Blood Cell (RBC) Count 4.72 mill/uL (4.20-5.40); White Blood Cell (WBC) Count 11.1 thou/uL (4.8-10.8)
[2018-10-21] MEDS ORDERED: Lorazepam 2 MG/ML VIAL ONE (22:07)
[2018-10-21 22:19] LABS: ALT (SGPT) 11 U/L (8-55); AST (SGOT) 12 U/L (5-34); Albumin 3.6 g/dL (3.5-5.0); Alkaline Phosphatase 152 U/L (40-150); Anion Gap 15 mmol/L (10-20); BUN (Urea Nitrogen) 22 mg/dL (7.0-18.7); Bilirubin, Total 0.5 mg/dL (0.2-1.2); Calc. Creatinine Clearance 0 mL/min (70-130); Calcium 8.7 mg/dL (7.8-10.44); Carbon Dioxide 21 mmol/L (22-29); Chloride 103 mmol/L (98-107); Estimated GFR-MDRD 20; Globulin 3.2 g/dL (2.4-3.5); Glucose 266 mg/dL (70-105); Lipase 14 U/L (8-78); Potassium 4.3 mmol/L (3.5-5.1); Protein, Total 6.8 g/dL (6.0-8.3); Sodium 135 mmol/L (136-145)
[2018-10-21 23:36] LABS: Bilirubin Negative (Negative); Blood, Urine Moderate (Negative); Clarity CLOUDY (Clear); Glucose, Urine (Dipstick) Negative (Negative); Leukocyte Trace (Negative); Nitrite Negative (Negative); Protein, Urine (Dipstick) Negative (Neg-Trace); Specific Gravity, Urine 1.029 (1.002-1.036); Urobilinogen 0.2 mg/dL (0.2-1.0)
[2018-10-21 23:39] LABS: Bacteria/HPF 1+ HPF (None Seen); Hyaline Casts/LPF 7-10 HYALINE CAST LPF (0-3 Hyaline); Pathc Cast-AUWi Flag 2.04 (0-2.49)
[2018-10-22 00:01] LABS: Medtox Reader # READER 4
[2018-10-22 00:02] LABS: Amphetamine Not Detected (NotDetected); Barbiturates Screen Not Detected (NotDetected); Benzodiazepine Screen Not Detected (NotDetected); Cocaine Metabolite Screen Detected (NotDetected); Medtox Control Line Valid? VALID (VALID); Methadone Not Detected (NotDetected); Methamphetamine Not Detected (NotDetected); Opiate Screen Detected (NotDetected); Oxycodone Screen Not Detected (NotDetected); Phencyclidine (PCP) Not Detected (NotDetected); THC/Cannabinoid Screen Not Detected (NotDetected); Tricyclic Screen Not Detected (NotDetected)
[2018-10-22 00:12] LABS: Renal Epithelial None Seen HPF (0-3); Transitional Epithelial NONE SEEN HPF (0-3)
== END 2018-10-22 00:05 | disposition home or self-care (01) ==
LOC: ERS 20:46
DX: A08.4 Viral intestinal infection, unspecified (principal); E11.22 Type 2 diabetes mellitus with diabetic chronic kidney disease; I12.9 Hypertensive chronic kidney disease with stage 1 through stage 4 chronic kidney disease, or unspecified chronic kidney disease; E11.69 Type 2 diabetes mellitus with other specified complication; M86.9 Osteomyelitis, unspecified; N18.3 Chronic kidney disease, stage 3 (moderate); F32.9 Major depressive disorder, single episode, unspecified; F41.9 Anxiety disorder, unspecified; K21.9 Gastro-esophageal reflux disease without esophagitis; I25.10 Atherosclerotic heart disease of native coronary artery without angina pectoris; I25.2 Old myocardial infarction; Z87.891 Personal history of nicotine dependence; Z79.4 Long term (current) use of insulin; Z79.899 Other long term (current) drug therapy
CPT/HCPCS: 36415; 80053; 80306; 81003; 81015; 83690; 84484; 85025; 93005; 96361; 96374; 96375; J2060; J2405

== ENCOUNTER 2018-11-03 14:05 | Inpatient (IN) | payer OTHER ==
[2018-11-03] MEDS ORDERED: Acetaminophen 500 MG TAB ONE (15:03)
[2018-11-03] MEDS ORDERED: Aspirin Chewable 81 MG TAB ONE (15:03)
[2018-11-03] MEDS ORDERED: Ondansetron PF 4 MG/2 ML Vial ONE (15:03)
[2018-11-03 15:18] LABS: #Eosinphils 0.2 thou/uL (0.0-0.7); #Lymphocytes 2.3 thou/uL (1.20-3.40); #Monocytes 0.4 thou/uL (0.11-0.59); %Basophils 0.5 % (0.0-1.0); %Eosinophils 2.1 % (0.0-10.0); %Lymphocytes 29.5 % (21.0-51.0); %Monocytes 5.4 % (0.0-10.0); %Neutrophils 62.5 % (42.0-75.0); Hemoglobin 11.2 g/dL (12.0-16.0); Mean Corpuscular HGB CONC 32.8 g/dL (32.0-36.0); Mean Corpuscular Hemoglobin 29.1 pg (27.0-31.0); Mean Corpuscular Volume 88.7 fL (78.0-98.0); Mean Platelet Volume 8.3 fL (7.4-10.4); Platelet Count 237 thou/uL (130-400); RBC Distribution Width 12.2 % (11.5-14.5); Red Blood Cell (RBC) Count 3.83 mill/uL (4.20-5.40); White Blood Cell (WBC) Count 7.9 thou/uL (4.8-10.8)
[2018-11-03 15:37] LABS: Anion Gap 12 mmol/L (10-20); BUN (Urea Nitrogen) 25 mg/dL (7.0-18.7); Calc. Creatinine Clearance 0 mL/min (70-130); Calcium 8.7 mg/dL (7.8-10.44); Carbon Dioxide 21 mmol/L (22-29); Chloride 107 mmol/L (98-107); Estimated GFR-MDRD 21; Glucose 66 mg/dL (70-105); Potassium 4.1 mmol/L (3.5-5.1); Sodium 136 mmol/L (136-145)
[2018-11-03 15:43] LABS: Troponin I Less than 0.010 ng/mL (< 0.028)
[2018-11-03] MEDS ORDERED: Dextrose 5% in Water 1,000 ML IV PRN (16:07)
[2018-11-03] MEDS ORDERED: Dextrose 50% Abboject 50 ML SYRINGE SLOW IVP PRN (16:07)
[2018-11-03] MEDS ORDERED: HumaLOG 300 UNITS/3 ML VIAL SC PRN (16:07)
[2018-11-03] MEDS ORDERED: Furosemide 20 MG/2 ML VIAL SLOW IVP SCH (16:15)
[2018-11-03] MEDS ORDERED: Meclizine HCl 25 MG TAB PO PRN (17:08)
--- NOTE | 2018-11-03 18:14 | NM ---
Ventilation/perfusion lung scan: 11/03/2018 COMPARISON: None HISTORY: Cough TECHNIQUE: Ventilation imaging obtained following the inhalation of 13.1 mCi xenon-133 gas by facemas k. Perfusion imaging obtained finding the intravenous administration of 5.6 mCi of technetium 99m labeled MAA FINDINGS: Wash-in, equilibrium, and washout phase ventilation imaging is unremarkable. Perfusion imag ing is unremarkable. IMPRESSION: Very low probability for pulmonary embolism-unremarkable VQ scan.
--- NOTE | 2018-11-03 18:26 | PDOC.FPRHP ---
- History of Present Illness Chief Complaint: tx from [facility] 08/03 hypoxia History of Present Illness: The patient is a 42YOF with a PMH significant for IDDMII, HTN, CKDIV, and CAD s/ p angioplasty who presented to the ED from [facility] due to progressively worsening respiratory status. Per the patient and chart review, she was recently admitted to [facility] for treatment of a UTI but her "heart function" has worsened over the last several days "showing fluid around it" so she was transferred to [facility] for further evaluation and testing. Per the admitting ER physician, [facility] wanted to perform a V/Q scan (which they cannot do at their facility) due to suspicion of a possible PE due her hypoxia as they are unable to do a CTA due to her renal function. The patient reports associated orthopnea and chest pain with cough but no fever/chills or nausea. The patient denies ever having had an Echo but also endorses night time snoring but has never had a sleep study. In addition, the patient endorses right sided mouth weakness and right facial numbness that has been ongoing for the last month. She also endorses associated dysgraphia stating she is able to grasp writing utensils with her right hand but cannot write with them. She denies any extremity weakness or dysphagia but does have difficulty eating and drinking and limited mouth movements. ED Course: 1g PO tylenol, 4 mg zofran, 324mg ASA - Allergies/Adverse Reactions Allergies Allergy/AdvReac Type Severity Reaction Status Date / Time ciprofloxacin Allergy Hives Verified 11/03/18 17:30 lisinopril Allergy Anaphylaxis Verified 11/03/18 17:30 - Home Medications Medication Instructions Recorded Confirmed Type tiZANidine HCl [Tizanidine HCl] 4 mg PO TID 10/29/17 11/03/18 History Amlodipine [Norvasc] 10 mg PO DAILY #30 tab 05/10/18 11/03/18 Rx Esomeprazole Magnesium [NexIUM] 20 mg PO DAILY #30 capsule. 05/10/18 11/03/18 Rx Gabapentin [Neurontin] 300 mg PO TID #90 cap 05/10/18 11/03/18 Rx Ondansetron [Zofran ODT] 4 mg PO Q6HR PRN 10/30/18 11/03/18 History Carvedilol [Coreg] 12.5 mg PO BID 11/03/18 11/03/18 History Insulin Aspart [NovoLOG FlexPen] 1 - 12 units SC TID-WM 11/03/18 11/03/18 History Insulin Glargine [Lantus] 80 units SC BID 11/03/18 11/03/18 History hydrALAZINE [Apresoline] 12.5 mg PO TID 11/03/18 11/03/18 History - History PMHx: CAD s/p angioplasty in 2016, HTN, CKD IV, chronic back pain, IDDMII, GERD PSHx: C/S x2, L5-S1 discectomy, tonsillectomy, bilateral tubal ligation, angioplasty FHx: Mother- [place] in her 60s Social: Former smoker. Quit about 1-1.5 months ago. Reports smoking 1-1.5 packs/ week x 20 years before quitting. Former cocaine use but has not used in years. No EtOH use. - Review of Systems General: denies: fever/chills, weight/appetite/sleep changes Eyes: denies: vision changes ENT: reports: other (hearing loss in right ear). denies: nasal congestion, rhinorrhea Respiratory: reports: cough, shortness of breath Cardiovascular: reports: chest pain (with coughing), palpitation, edema, orthopnea. denies: paroxysmal nocturnal dyspnea Gastrointestinal: reports: constipation. denies: nausea, vomiting, diarrhea, abdominal pain Genitourinary: denies: incontinence, dysuria, polyuria Skin: denies: rashes Musculoskeletal: reports: pain Neurological: reports: numbness. denies: weakness Psychological: reports: anxiety. denies: depression - Vital signs BP: 134/81 HR: 69 RR: 20 Tmax: 98.2F Pox: 95% on 2L via NC Wt: 103 kg - Physical Exam Constitutional: well developed, other (slightly drowsy but answering questions appropriately but in mild respiratory distress with wheezing & tachypnea on exam ) HEENT: normocephalic and atraumatic, PERRLA, conjunctiva clear, grossly normal vision, grossly normal hearing, MMM, oropharynx clear, other (blood at base of canal in right canal but TM clear and intact) Neck: supple, FROM Heart: RRR, normal S1/S2, pulses present, no edema Lungs: other (moderate respiratory distress but maintaining sats on NC; overt wheezing heard even without stethoscope but inspiratory rhonchi and end- expiratory wheezing heard throughout as well as crackles in B/L bases) Abdomen: soft, non-tender, bowel sounds present, no masses/distention Musculoskeletal: normal structure, ROM grossly normal Neurological: no focal deficit, other (decreased sensation to light touch in V1- V3 on right face with decreased movement in R mouth and mild dysarthria 2/2 this ; no tongue deviation and 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) Skin: no rash/lesions, no jaundice Heme/Lymphatic: no unusual bruising or bleeding Psychiatric: normal mood and affect, intact recent and remote memory FMR H&P: Results - Labs Result Diagrams: 11/03/18 15:09 11/03/18 15:09 Lab results: WBC 7.9 thou/uL (4.8-10.8) 11/03/18 15:09 Hgb 11.2 g/dL (12.0-16.0) L 11/03/18 15:09 Hct 34.0 % (36.0-47.0) L 11/03/18 15:09 MCV 88.7 fL (78.0-98.0) 11/03/18 15:09 Plt Count 237 thou/uL (130-400) 11/03/18 15:09 Neutrophils % 62.5 % (42.0-75.0) 11/03/18 15:09 Sodium 136 mmol/L (136-145) 11/03/18 15:09 Potassium 4.1 mmol/L (3.5-5.1) 11/03/18 15:09 Chloride 107 mmol/L (98-107) 11/03/18 15:09 Carbon Dioxide 21 mmol/L (22-29) L 11/03/18 15:09 BUN 25 mg/dL (7.0-18.7) H 11/03/18 15:09 Creatinine 2.51 mg/dL (0.6-1.1) H 11/03/18 15:09 Glucose 66 mg/dL (70-105) L 11/03/18 15:09 Calcium 8.7 mg/dL (7.8-10.44) 11/03/18 15:09 B-Natriuretic Peptide 146.8 pg/mL (0-100) H 11/03/18 15:09 - EKG Interpretation EKG: NSR - Radiology Interpretation Chest x-ray Status: image reviewed by me, report reviewed by me (alveolar congestion c/w CHF changes) FMR H&P: A/P - Problem List (1) Acute respiratory failure with hypoxia Current Visit: Yes Status: Acute Code(s): J96.01 - ACUTE RESPIRATORY FAILURE WITH HYPOXIA (2) Hypoxia Current Visit: Yes Status: Acute Code(s): R09.02 - HYPOXEMIA (3) Acute exacerbation of CHF (congestive heart failure) Current Visit: Yes Status: Acute Code(s): I50.9 - HEART FAILURE, UNSPECIFIED (4) GERD (gastroesophageal reflux disease) Current Visit: Yes Status: Acute Code(s): K21.9 - GASTRO-ESOPHAGEAL REFLUX DISEASE WITHOUT ESOPHAGITIS (5) Chronic renal disease, stage IV Current Visit: Yes Status: Acute Code(s): N18.4 - CHRONIC KIDNEY DISEASE, STAGE 4 (SEVERE) (6) Anemia, normocytic normochromic Current Visit: No Status: Chronic Code(s): D64.9 - ANEMIA, UNSPECIFIED (7) CAD (coronary artery disease) Current Visit: No Status: Chronic Code(s): I25.10 - ATHSCL HEART DISEASE OF [place] CORONARY ARTERY W/O ANG PCTRS Qualifiers: Comment: stable (8) DM type 2 (diabetes mellitus, type 2) Current Visit: No Status: Chronic Qualifiers: Comment: continue accuchecks, insulin sliding scale. Start lantus (9) HTN (hypertension) Current Visit: No Status: Chronic Code(s): I10 - ESSENTIAL (PRIMARY) HYPERTENSION Qualifiers: Comment: hypertensive urgency has resolved, resume home medications. Mild hypokalemia, discontinue HCTZ (10) Lumbar disc disease with radiculopathy Current Visit: No Status: Chronic Code(s): M51.16 - INTERVERTEBRAL DISC DISORDERS W RADICULOPATHY, LUMBAR REGION (11) Obesity Current Visit: No Status: Chronic Code(s): E66.9 - OBESITY, UNSPECIFIED - Plan 42YOF transferred from [facility] for further workup and imaging regarding worsening acute hypoxic respiratory failure. Acute hypoxic respiratory failure 2/2 unknown etiology: - CXR a [facility] yesterday and in the ED today remarkable for vascular congestion c/w volume overload from possible CHF and/or worsening renal function. PE also possibility given h/o vascular disease and obesity but patient is not tachycardic, only hypoxic; however patient is on BB therapy which could be blunting tachycardia. Troponins and EKG showed no signs of ACS so this is also unlikely. Could also be some component of undiagnosed COPD due to significant smoking history as well and overt wheezing heard on exam. No clinical signs of infection at this point as well as CBC WNLs and afebrile. - BNP also trended up from [facility] ED this AM and ED here this afternoon from 113 to ~ 146. However, per chart has been higher than this previously. Will order a one time dose of IV lasix to address possible pulmonary edema. Will also order an Echo to assess cardiac function. Will fluid restrict to 1500mL/ day and get QD weights and strict I&Os as well. - V/Q scan pending that was ordered in the ED but will also order an ABG to assess for any significant shunting process that could be 2/2 a PE. - Will also order SINCERE Duonebs Q4H due to significant wheezing on exam as their could be an underlying infectious vs. COPD component contributing to hypoxia. - Will continue supplemental O2 via NC to maintain sats >92% and continue to monitor vitals closely. Will wean as tolerated by patient. Right facial weakness and numbness: - Will order an MRI to assess for a possible cerebral ischemia which could explain patient's symptoms. Considered possible MS; however, time course makes this unlikely. Will consider consulting neuro based on imaging results. CKD stage IV: - Patient has had an eGFR in the 20s since May per chart review. Cr & eGFR within baseline limits today. Will continue to monitor with daily labs. HTN: - Will resume home medications. UTI: - Patient diagnosed with E. coli UTI in [facility]. On day #5 of 10 day course of Omnicef today. Will continue course to completion. Anemia of chronic disease: - Aware, Hgb 11.2 on admission. Likely 2/2 CKD. Will continue to monitor with QD labs. IDDMII: - Aware, patient hypoglycemic in the ED. Will resume home insulin regimen & HH, CC diet. - ACHS accuchecks and hyperglycemia protocol as aggressive SSI. GERD: - Aware, will resume home meds. CAD s/p angioplasty: - Truong resume home meds. Chronic back pain: - Will resume home tramadol. Obesity - Chronic issue - Advise dietary changes Dispo: Will admit to inpatient telemetry for close monitoring overnight. DVT PPx: Lovenox (renally dosed) GI PPx: nexium Abx: Omnicef Diet: HH, CC, fluid restriction to 1500mL Code Status: FULL CODE FMR H&P: Upper Level - Pertinent history 42F here as a transfer from [place] for cc of 1 day SOB. She was being treated for UTI failing outpatient therapy and was to be discharge the day she developed SOB. Reported, her O2 dropped down to 82% at one point. CXR done there show vascular prominence but without evidence of pneumonia. Her SOB was not with exertion. It is associated with sometime productive cough, 3 pillow orthopnea, PND, snoring, daytime somnolence. Does not use home O2 Risk factor includes obesity, previous hx of CAD with cath 3 years ago showing 50% blockage in one vessel, apparent 1 month of right sided weakness/facial drooping and difficulty with swallowing. Gen: Arousable, sleepy appearing at time, can become tearful when describing medical issue. HEENT: Normocephalic, atruamatic Heart: RRR no obvious m/g/r. Unable to assess JVD due to body habitus Resp: Crackles in all lung field, good air movement Abd: Soft, normoactive, Skin: Unable to appreciate more then trace edema in simon, thigh or abdomen Neuro: 4/5 strength in right leg/arm. Right sided facial droop. Other CN grossly intact. 1. Acute hypoxic respiratory failure - Transfer for r/o of PE. Order had been placed during transfer process for V/Q scan secondary to patient's CKD IV. Patient is currently not tachycardic, tachypneic, hypoxic or had syncope. - Plan, obtain additional labwork, ABG, ext doppler. - Consider other etiology including aspiration 2/2 stroke like symptom and do stroke work up, CHF - obtain echo and small dose of lasix, ACS - obtain trop ( EKG without st change), pickwickian/ALETHA - advise dietary changes and sleep study , possible new COPD - advise smoking cessation, albuterol/steroid if wheezing. No evidence of pneumonia yet on CXR and not febrile, procal unlikely to be helpful with her known UTI ongoing. 2. Stroke like symptom - Has been going on for one month, so no acute treatment - Plan obtain MRI, will work up risk factor including lipid and blood pressure control. 3. CKD IV - Has been ongoing for at least year - Plan, attempt to avoid nephrotoxin whenever possible. Continue to monitor. 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 4. DM2 - Mildly hypoglycemic on arrival. Patient was given insulin and did not eat as usual due to transfer events - Start on diabetic diet, SSI, resume usual home med as appropriate. 5. HTN - Chronic issue. Currently mildly HTN - Plan, resume home medication 6. UTI - Being treated for this. - Will continue cefdiner for 5 more days to complete original course. 7. Normocytic anemia - Hgb above 10. - While she is having SOB, the acute onset would argue against this being main etiology - Rec work up as outpatient for her anemia. Likely to be due to CKD IV. 8. Lumbar radiculopathy - Aware, source of chronic back pain - Symptomatic management as needed. 9. Obesity - Chronic issue - Advise dietary changes 10. Hx CAD - Chronic issue - Continue home med - Plan Date/Time: 11/03/181813 I, [Chente Ferreira], have evaluated this patient and agree with findings/plan as outlined by international sales manager resident. Pertinent changes/additions are listed here. Addendum - Attending - Attending Attestation Date/Time: 11/03/18 970 I personally evaluated the patient and discussed the management with Dr. Uriarte. I agree with the History, Examination, Assessment and Plan documented above with any addition or exceptions noted below. The patient was transferred from [facility] where she hospitalized for a uti. She has been developing worsening shortness of breath and they wanted a vq scan. This is pending now. She has wheezing on exam and a long smoking history. Will add duonebs. Check ABG. Oxygen as needed. In regards to elevated bnp, this could be due to her CKD but could also be due to an undiagnosed heart failure. Will get an echo. In regards to her right sided facial droop and other symtpoms mentioned above, will get an MRI brain.
[2018-11-03 19:08] LABS: Troponin I 0.011 ng/mL (< 0.028)
[2018-11-03] MEDS: Gabapentin 300 MG CAP PO SCH (21:26)
[2018-11-03] MEDS: hydrALAZINE 25 MG TAB PO SCH (21:26)
[2018-11-03] MEDS: Cefdinir 300 MG CAP PO SCH (21:27)
[2018-11-03] MEDS: traMADol HCl 50 MG TAB PO PRN (21:27)
[2018-11-03] MEDS: tiZANidine HCl 4 MG TAB PO SCH (21:27)
[2018-11-03] MEDS: traZODone HCl 50 MG TAB PO PRN (21:28)
[2018-11-03] MEDS: Insulin Glargine 86 UNITS in Pre-Filled Syringe 1 EACH SC SCH (21:28)
[2018-11-04] MEDS: Acetaminophen 325 MG TAB PO PRN ×3 (04:11→21:38)
[2018-11-04] MEDS: traMADol HCl 50 MG TAB PO PRN ×3 (04:11→23:13)
--- NOTE | 2018-11-04 06:34 | PDOC.FM ---
- Subjective Subjective: Ms. Goldman says the neb treatments have helped her breathing. She complains of continued R sided facial numbness, arm weakness. R eye vision blurriness. No chest pain. SOB. Tearful on exam. - Objective Vital Signs & Weight: Vital Signs (12 hours) Temp Pulse Resp BP BP Pulse Ox 11/04/18 03:25 99.2 F 117 H 18 169/82 H 98 11/04/18 00:00 98.2 F 71 17 138/68 98 11/03/18 23:30 95 11/03/18 21:26 79 166/83 H 11/03/18 20:25 98.4 F 79 18 166/83 H 96 11/03/18 19:19 96 11/03/18 19:17 96 Weight Weight 101.559 kg Result Diagrams: 11/04/18 06:28 11/04/18 06:28 Phys Exam - Physical Examination Constitutional: NAD Respiratory: wheezing present Cardiovascular: RRR, no significant murmur Gastrointestinal: soft, non-tender, positive bowel sounds Musculoskeletal: no edema Skin: normal turgor Dx/Plan (1) Acute respiratory failure with hypoxia Code(s): J96.01 - ACUTE RESPIRATORY FAILURE WITH HYPOXIA Status: Acute (2) Chronic renal disease, stage IV Code(s): N18.4 - CHRONIC KIDNEY DISEASE, STAGE 4 (SEVERE) Status: Acute (3) GWEN (acute kidney injury) Code(s): N17.9 - ACUTE KIDNEY FAILURE, UNSPECIFIED Status: Acute (4) Acute worsening of stage 3 chronic kidney disease Code(s): N18.3 - CHRONIC KIDNEY DISEASE, STAGE 3 (MODERATE) Status: Acute (5) Anxiety and depression Code(s): F41.9 - ANXIETY DISORDER, UNSPECIFIED; F32.9 - MAJOR DEPRESSIVE DISORDER, SINGLE EPISODE, UNSPECIFIED Status: Chronic (6) CKD (chronic kidney disease) stage 3, GFR 30-59 ml/min Status: Chronic (7) DM type 2 (diabetes mellitus, type 2) Status: Chronic Qualifiers: (8) Dyslipidemia Code(s): E78.5 - HYPERLIPIDEMIA, UNSPECIFIED Status: Chronic (9) HTN (hypertension) Code(s): I10 - ESSENTIAL (PRIMARY) HYPERTENSION Status: Chronic Qualifiers: - Plan Plan: 42YOF transferred from [facility] for further workup and imaging regarding worsening acute hypoxic respiratory failure. Acute hypoxic respiratory failure 2/2 unknown etiology: - CXR a [facility] yesterday and in the ED today remarkable for vascular congestion c/w volume overload from possible CHF and/or worsening renal function. Troponins and EKG showed no signs of ACS so this is also unlikely. Could also be some component of undiagnosed COPD due to significant smoking history as well and overt wheezing heard on exam. No clinical signs of infection. - BNP also trended up from [facility] ED this AM and ED here this afternoon from 113 to ~ 146. However, per chart has been higher than this previously. Will fluid restrict to 1500mL/day and get QD weights and strict I&Os as well. Echo pending - V/Q scan negative - Continue SINCERE Duonebs Q4H - Will continue supplemental O2 via NC to maintain sats >92% and wean as tolerated Right facial weakness and numbness: - MRI pending. Considered possible MS; however, time course makes this unlikely. Will consider consulting neuro based on imaging results. CKD stage IV: - Patient has had an eGFR in the 20s since May per chart review. Cr & eGFR within baseline limits today. Will continue to monitor with daily labs. HTN: - Will resume home medications. UTI: - Patient diagnosed with E. coli UTI in [facility]. On day #6 of 10 day course of Omnicef today. Will continue course to completion. Anemia of chronic disease: - Aware, Hgb 11.2 on admission. Likely 2/2 CKD. Will continue to monitor with QD labs. IDDMII: - Aware, patient hypoglycemic in the ED. Will resume home insulin regimen & HH, CC diet. - ACHS accuchecks and hyperglycemia protocol as aggressive SSI. GERD: - Aware, will resume home meds. CAD s/p angioplasty: - Truong resume home meds. Chronic back pain: - Will resume home tramadol. Obesity - Chronic issue - Advise dietary changes Dispo: Will admit to inpatient telemetry for close monitoring overnight. DVT PPx: Lovenox (renally dosed) GI PPx: nexium Abx: Omnicef Diet: HH, CC, fluid restriction to 1500mL Code Status: FULL CODE Addendum - Attending - Attending Attestation Date/Time: 11/04/18 1119 I personally evaluated the patient and discussed the management with Dr. Pérez. I agree with the History, Examination, Assessment and Plan documented above with any addition or exceptions noted below. Patient reports continued shortness of breath and wheezing this morning. Improved with supplemental O2. Workup is negative for PE. Echo pending to evaluate for CHF and/or COPD as cause of her symptoms. Continue O2, neb treatments. She is also having R sided neuro weakness and MRI pending. Labs stable. Continue treatment for her UTI.
[2018-11-04 07:19] LABS: #Basophils 0.1 thou/uL (0.0-0.2); #Eosinphils 0.2 thou/uL (0.0-0.7); #Lymphocytes 2.1 thou/uL (1.20-3.40); #Monocytes 0.4 thou/uL (0.11-0.59); #Neutrophils 6.2 thou/uL (1.40-6.50); %Basophils 0.8 % (0.0-1.0); %Eosinophils 1.7 % (0.0-10.0); %Lymphocytes 23.9 % (21.0-51.0); %Monocytes 4.2 % (0.0-10.0); %Neutrophils 69.4 % (42.0-75.0); Mean Corpuscular HGB CONC 33.7 g/dL (32.0-36.0); Mean Corpuscular Hemoglobin 29.7 pg (27.0-31.0); Mean Corpuscular Volume 88.3 fL (78.0-98.0); Mean Platelet Volume 8.5 fL (7.4-10.4); Platelet Count 234 thou/uL (130-400); RBC Distribution Width 12.2 % (11.5-14.5); Red Blood Cell (RBC) Count 3.38 mill/uL (4.20-5.40); White Blood Cell (WBC) Count 8.9 thou/uL (4.8-10.8)
[2018-11-04 07:33] LABS: Anion Gap 15 mmol/L (10-20); BUN (Urea Nitrogen) 23 mg/dL (7.0-18.7); Calc. Creatinine Clearance 51 mL/min (70-130); Calcium 8.4 mg/dL (7.8-10.44); Carbon Dioxide 20 mmol/L (22-29); Chloride 106 mmol/L (98-107); Estimated GFR-MDRD 23; Glucose 91 mg/dL (70-105); Potassium 4.2 mmol/L (3.5-5.1); Sodium 137 mmol/L (136-145)
[2018-11-04] MEDS: Insulin Glargine 86 UNITS in Pre-Filled Syringe 1 EACH SC SCH (09:17)
[2018-11-04] MEDS: tiZANidine HCl 4 MG TAB PO SCH ×3 (09:18→21:23)
[2018-11-04] MEDS: Gabapentin 300 MG CAP PO SCH ×3 (09:18→21:23)
[2018-11-04] MEDS: Cefdinir 300 MG CAP PO SCH ×2 (09:18→21:23)
[2018-11-04] MEDS: Enoxaparin Sodium 30 MG/0.3 ML SYRINGE SC SCH (09:18)
[2018-11-04] MEDS: Carvedilol 25 MG TAB PO SCH ×2 (09:18→16:16)
[2018-11-04] MEDS: Amlodipine 10 MG TAB PO SCH (09:18)
[2018-11-04] MEDS: hydrALAZINE 25 MG TAB PO SCH ×3 (09:19→21:22)
[2018-11-04] MEDS: HumaLOG 300 UNITS/3 ML VIAL SC SCH ×3 (10:21→19:13)
--- NOTE | 2018-11-04 13:22 | MRI ---
Brain MRI without contrast: 11/04/2018 COMPARISON: 05/07/2018 HISTORY: Dysarthria, weakness, right facial/mouth droop TECHNIQUE: Multiplanar multisequence MR imaging of the brain obtained without contrast FINDINGS: There is a focus of restricted diffusion within the middle cerebellar peduncle on the right , consistent with an area of acute infarction. This measures 1.7 cm in AP dimension. There is corresponding increased T2 and FLAIR signal within this region. The gradient echo imaging demonstrate s no evidence for an associated hemorrhage. There are foci of increased T2 and FLAIR signal within the superior lateral aspect of the right cerebellar hemisphere suggesting areas of prior infarction. No additional area of acute infarction is identified on this exam. There are a few scattered foci of increased T2 and FLAIR signal within the periventricular white jamshid er posteriorly, suggesting small vessel disease. Regional bone marrow signal intensity appears grossly unremarkable. There is mucosal thickening involving bilateral ethmoid air cells, maxillary sinuses, and sphenoid si nuses. IMPRESSION: Acute infarction within the right middle cerebellar peduncle. This abnormality is in the right A[place] territory.
[2018-11-04] MEDS ORDERED: Atorvastatin Calcium 40 MG TAB PO SCH (21:00)
[2018-11-04] MEDS: traZODone HCl 50 MG TAB PO PRN (21:23)
--- NOTE | 2018-11-05 00:01 | CON ---
DATE OF CONSULTATION: 11/04/2018 CONSULTING PHYSICIAN: Hospitalist Service. IMPRESSION: Brainstem stroke with right peripheral seventh and right-sided dysmetria and weakness. PLAN: 1. Echocardiogram. 2. Carotid ultrasound. 3. Aspirin 81 mg per day. 4. Statin. 5. PT, OT, Speech Therapy evaluations. 6. Probable need for rehab transfer. HISTORY OF PRESENT ILLNESS: Ms. Goldman is a 42-year-old white female with a history of diabetes. She reports that she has been going to the emergency room on several different occasions secondary to vertigo and facial numbness. She was thought to have Meniere disease and probably treated with steroids. It is a bit hard to tell for certain. She became short of breath and there was concern for pulmonary embolus. They shipped her here for further evaluation. She ended up having an MRI of the brain, which showed a right cerebellar peduncle infarct with some extension in the brainstem. Has no other past neurologic history. PAST MEDICAL HISTORY: Hypertension, diabetes, chronic kidney disease, coronary artery disease, reflux. PAST SURGICAL HISTORY: L5-S1 diskectomy, tubal ligations, and cardiac catheterizations. FAMILY HISTORY: Unremarkable. SOCIAL HISTORY: Denies alcohol or illicit drug use. MEDICATIONS: Medication list was reviewed. REVIEW OF SYSTEMS: Ten system review of systems is otherwise unremarkable. PHYSICAL EXAMINATION: GENERAL: She is somewhat overweight middle-aged woman, in no acute distress. VITAL SIGNS: Stable. She is afebrile. Blood sugar of 70 earlier today with diaphoresis. HEENT: Pupils are equal. Conjunctivae clear. Oropharynx clear. Palate elevated to the midline. Tongue protruded to the center. There is a peripheral seventh paralysis on the right side of the face. Motor exam showed antigravity strength in all limbs with dysmetria on [id number] movements on the right side. Sensation is subjectively decreased on the right. She cannot stand without assistance. LABORATORY DATA: EKG shows sinus rhythm. MRI images were reviewed. SUMMARY: This is a middle-aged woman with a small vessel stroke in the brainstem. Apparently, the symptoms have been going on for several days prior to admission. Workup is underway, probably need some rehab. Job ID: [id number]
[2018-11-05] MEDS: Insulin Glargine 86 UNITS in Pre-Filled Syringe 1 EACH SC SCH ×2 (05:40→11:47)
[2018-11-05] MEDS: traMADol HCl 50 MG TAB PO PRN ×3 (06:37→22:03)
[2018-11-05] MEDS: Acetaminophen 325 MG TAB PO PRN ×4 (06:37→22:04)
--- NOTE | 2018-11-05 07:06 | PDOC.FM ---
- Subjective Subjective: Ms. Goldman reports a problem with her R eye. She is unable to describe this very well. Denies eye pain or acute change in vision. Describes it like there is a film over her eye causing some blurriness in vision. Denies discharge, reports itching. Denies difficulty breathing. - Objective MAR Reviewed: Yes Vital Signs & Weight: Vital Signs (12 hours) Temp Pulse Resp BP BP Pulse Ox 11/05/18 06:24 80 16 94 L 11/05/18 04:00 99.5 F 79 19 149/83 H 93 L 11/05/18 01:30 84 18 95 11/05/18 00:00 98.8 F 77 19 147/81 H 92 L 11/04/18 21:48 78 16 92 L 11/04/18 21:22 75 138/78 11/04/18 20:00 92 L 11/04/18 19:36 98.7 F 75 16 145/84 H 99 Weight Weight 103.192 kg I&O: 11/04/18 11/05/18 11/06/18 06:59 06:59 06:59 Intake Total 790 530 Output Total 2230 450 Balance -1440 80 Result Diagrams: 11/04/18 06:28 11/04/18 06:28 Phys Exam - Physical Examination Constitutional: NAD HEENT: PERRLA, oral pharynx no lesions R conjunctiva injected with some upper lid swelling Respiratory: wheezing present (mild inspiratory. course breath sounds.) Cardiovascular: RRR, no significant murmur Gastrointestinal: soft, non-tender Musculoskeletal: no edema Neurological: non-focal Psychiatric: normal affect Skin: normal turgor Dx/Plan (1) Acute respiratory failure with hypoxia Code(s): J96.01 - ACUTE RESPIRATORY FAILURE WITH HYPOXIA Status: Acute (2) Chronic renal disease, stage IV Code(s): N18.4 - CHRONIC KIDNEY DISEASE, STAGE 4 (SEVERE) Status: Acute (3) GWEN (acute kidney injury) Code(s): N17.9 - ACUTE KIDNEY FAILURE, UNSPECIFIED Status: Acute (4) Acute worsening of stage 3 chronic kidney disease Code(s): N18.3 - CHRONIC KIDNEY DISEASE, STAGE 3 (MODERATE) Status: Acute (5) Anxiety and depression Code(s): F41.9 - ANXIETY DISORDER, UNSPECIFIED; F32.9 - MAJOR DEPRESSIVE DISORDER, SINGLE EPISODE, UNSPECIFIED Status: Chronic (6) CKD (chronic kidney disease) stage 3, GFR 30-59 ml/min Status: Chronic (7) DM type 2 (diabetes mellitus, type 2) Status: Chronic Qualifiers: (8) Dyslipidemia Code(s): E78.5 - HYPERLIPIDEMIA, UNSPECIFIED Status: Chronic (9) HTN (hypertension) Code(s): I10 - ESSENTIAL (PRIMARY) HYPERTENSION Status: Chronic Qualifiers: - Plan Plan: 42YOF transferred from [place] for further workup and imaging regarding worsening acute hypoxic respiratory failure. Acute hypoxic respiratory failure - No clinical signs of infection. repeat CXR ordered for today - BNP 146. Fluid restrict to 1500mL/day and get QD weights and strict I&Os as well. Echo pending read - V/Q scan negative - Continue SINCERE Duonebs Q4H - Will continue supplemental O2 via NC to maintain sats >92% and wean as tolerated - incentive spirometry ordered. Will start steroids. Acute CVA - MRI showed involvement of R middle cerbellar peduncle - carotid dopplers ordered - neurology consulted, appreciate recommendations - continue statin, aspirin R eye conjunctivitis - start erythromycin and will reevaluate tomorrow. Does not have any eye pain. CKD stage IV: - at baseline HTN: - continue home medications. UTI: - Patient diagnosed with E. coli UTI in [place]. On day #7 of 10 day course of Omnicef today. Will continue course to completion. Anemia of chronic disease: - Aware, Hgb 11.2 on admission. Likely 2/2 CKD. Will continue to monitor with QD labs. IDDMII: - Aware, patient hypoglycemic in the ED. Will resume home insulin regimen & HH, CC diet. - ACHS accuchecks and hyperglycemia protocol as aggressive SSI. GERD: - Aware, will resume home meds. CAD s/p angioplasty: - Truong resume home meds. Chronic back pain: - Will resume home tramadol. Obesity - Chronic issue - Advise dietary changes DVT PPx: Lovenox (renally dosed) GI PPx: nexium Abx: Omnicef Diet: HH, CC, fluid restriction to 1500mL Code Status: FULL CODE
[2018-11-05] MEDS: Ondansetron ODT 4 MG TAB PO PRN (08:33)
--- NOTE | 2018-11-05 08:39 | ULT ---
US Carotid Doppler STANDARD HISTORY: CVA COMPARISON: None. FINDINGS: Real-time color Doppler evaluation of the right and left carotid systems was formed. Minima l plaque formation at the origin of both internal carotid arteries is noted. On the right side peak systolic velocities of the common carotid were 91 cm/s. Internal carotid veloc ity is 107 cm/s external carotid velocity is 95 cm/s. On the left side peak systolic velocities in the common carotid 122 cm/s. Internal carotid velocity i s 89 cm/s and external carotid velocity 79 cm second Vertebral flow is antegrade bilaterally. IMPRESSION: No evidence of hemodynamically significant stenosis of either internal carotid artery.
--- NOTE | 2018-11-05 08:50 | RAD ---
Exam: Chest one view HISTORY:Short of breath Comparison: 11/03/2018 FINDINGS: Heterogeneous density posterior to the cardiac silhouette indicates air-containing structure, likely related to a prominent sized hiatal hernia, although incompletely assessed on this exam. Lungs: No masses or consolidation. Cardiac silhouette: Normal size Pulmonary vessels: Normal Pleural Spaces: Clear Pneumothorax: None Osseous abnormalities: None of acuity. IMPRESSION: No focal consolidation. Retrocardiac mixed density which may relate to hiatal hernia. This could be further evaluated with fo llow-up double contrast upper GI, as indicated.
[2018-11-05] MEDS: Amlodipine 10 MG TAB PO SCH (09:47)
[2018-11-05] MEDS: Carvedilol 25 MG TAB PO SCH ×2 (09:47→16:48)
[2018-11-05] MEDS: tiZANidine HCl 4 MG TAB PO SCH ×3 (09:47→20:40)
[2018-11-05] MEDS: Aspirin 81 mg Enteric Coated Tablet PO SCH (09:47)
[2018-11-05] MEDS: hydrALAZINE 25 MG TAB PO SCH ×3 (09:47→20:40)
[2018-11-05] MEDS: Gabapentin 300 MG CAP PO SCH ×3 (09:47→20:41)
[2018-11-05] MEDS: Cefdinir 300 MG CAP PO SCH ×2 (09:47→20:40)
[2018-11-05] MEDS: Enoxaparin Sodium 30 MG/0.3 ML SYRINGE SC SCH (09:48)
[2018-11-05] MEDS: HumaLOG 300 UNITS/3 ML VIAL SC SCH ×3 (10:55→16:57)
[2018-11-05] MEDS ORDERED: predniSONE 20 MG TAB PO SCH ×2 (11:15→16:30)
--- NOTE | 2018-11-05 13:03 | PRG ---
DATE OF SERVICE: 11/05/2018 Ms. Goldman is a 42-year-old lady with multiple comorbidities, who has been admitted with a possible stroke. And in fact, a subsequent MRI done yesterday showed an acute infarction within the right middle cerebellar peduncle. This was in the right AICA territory. We consulted Dr. Costa, who has seen the patient. He recommended that we continue with our workup. We have started the patient on aspirin and statin and physical therapy. Job ID: [id number]
[2018-11-05] MEDS: Erythromycin Base 0.5% Oint 1 GM TUBE EA EYE SCH ×3 (14:13→20:41)
[2018-11-05] MEDS: traZODone HCl 50 MG TAB PO PRN (20:40)
[2018-11-05] MEDS: Atorvastatin Calcium 40 MG TAB PO SCH (20:41)
[2018-11-05] MEDS: Insulin Glargine 80 UNITS in Pre-Filled Syringe 1 EACH SC SCH (21:40)
[2018-11-06] MEDS: Acetaminophen 325 MG TAB PO PRN ×3 (04:07→20:25)
[2018-11-06] MEDS: traMADol HCl 50 MG TAB PO PRN ×3 (04:07→20:25)
[2018-11-06] MEDS: HumaLOG 300 UNITS/3 ML VIAL SC PRN (05:37)
--- NOTE | 2018-11-06 06:28 | PDOC.FM ---
- Subjective Subjective: Ms. Goldman says her breathing has improved. She has continued low back pain which she says is because she has been in bed so much. She says unsteady gait is why she has not gotten up. Main concern is her eye. Denies eye pain. Reports eye itching. Says vision has worsened. Has sensation of something being in eye. Also notes itchiness in R ear. Says this am R eye vision is "shapes". - Objective MAR Reviewed: Yes Vital Signs & Weight: Vital Signs (12 hours) Temp Pulse Resp BP BP Pulse Ox 11/06/18 04:09 98.0 F 87 22 H 177/87 H 91 L 11/05/18 23:56 98.4 F 78 17 151/79 H 95 11/05/18 22:41 82 18 97 11/05/18 20:40 76 152/84 H 11/05/18 20:00 99 11/05/18 19:59 97.4 F L 76 18 152/84 H 99 11/05/18 19:18 80 16 95 Weight Admit Weight 101.65 kg Weight 102.648 kg I&O: 11/04/18 11/05/18 11/06/18 06:59 06:59 06:59 Intake Total 003 365 5690 Output Total 2230 450 2125 Balance -1440 80 -625 Result Diagrams: 11/06/18 09:47 11/06/18 09:47 Phys Exam - Physical Examination HEENT: moist MMs R eye conjunctiva injected, R eyelid mildly swollen compared to left. R pupil dilated compared to L. L eye normal. Respiratory: no wheezing (rhonchi, good air movement, no respiratory distress) Cardiovascular: RRR, no significant murmur Gastrointestinal: soft, non-tender, positive bowel sounds RUE 4/5. LUE 5/5. decreased/different sensation on R side of body and face. Dx/Plan (1) Acute respiratory failure with hypoxia Code(s): J96.01 - ACUTE RESPIRATORY FAILURE WITH HYPOXIA Status: Acute (2) Chronic renal disease, stage IV Code(s): N18.4 - CHRONIC KIDNEY DISEASE, STAGE 4 (SEVERE) Status: Acute (3) GWEN (acute kidney injury) Code(s): N17.9 - ACUTE KIDNEY FAILURE, UNSPECIFIED Status: Acute (4) Acute worsening of stage 3 chronic kidney disease Code(s): N18.3 - CHRONIC KIDNEY DISEASE, STAGE 3 (MODERATE) Status: Acute (5) Anxiety and depression Code(s): F41.9 - ANXIETY DISORDER, UNSPECIFIED; F32.9 - MAJOR DEPRESSIVE DISORDER, SINGLE EPISODE, UNSPECIFIED Status: Chronic (6) CKD (chronic kidney disease) stage 3, GFR 30-59 ml/min Status: Chronic (7) DM type 2 (diabetes mellitus, type 2) Status: Chronic Qualifiers: (8) Dyslipidemia Code(s): E78.5 - HYPERLIPIDEMIA, UNSPECIFIED Status: Chronic (9) HTN (hypertension) Code(s): I10 - ESSENTIAL (PRIMARY) HYPERTENSION Status: Chronic Qualifiers: - Plan Plan: 42YOF transferred from [place] for further workup and imaging regarding worsening acute hypoxic respiratory failure. Acute hypoxic respiratory failure - No clinical signs of infection. repeat CXR ordered for today - BNP 146. Fluid restrict to 1500mL/day and get QD weights and strict I&Os as well. Echo pending read - V/Q scan negative - Continue SINCERE Duonebs Q4H - Will continue supplemental O2 via NC to maintain sats >92% and wean as tolerated - incentive spirometry ordered. Prednisone started /. Acute CVA - MRI showed involvement of R middle cerbellar peduncle - carotid dopplers negative - neurology consulted, appreciate recommendations - continue statin, aspirin R eye conjunctivitis - has gotten erythromycin one day. Eye appears worse and now with vision deficit , no eye pain. Dr. Griffith consulted and to see pt today CKD stage IV: - at baseline HTN: - uncontrolled. Continue home amlodipine and carvedilol. Will increse hydralazine 25->50 TID. UTI: - Patient diagnosed with E. coli UTI in [place]. On day #8 of 10 day course of Omnicef today. Will continue course to completion. Anemia of chronic disease: - Aware, Hgb 11.2 on admission. Likely 2/2 CKD. Will continue to monitor with QD labs. IDDMII: - ACHS accuchecks and hyperglycemia protocol as aggressive SSI. - BG has been fluctuating. Likely combination of patient requiring less while in hospital d/t better diet compliance as well as long acting insulin being held. Yesterday decreased glargine 86->80 (home dose), however not given last night. Fasting am BG 318 today. GERD: - Aware, will resume home meds. CAD s/p angioplasty: - Truong resume home meds. Chronic back pain: - Will resume home tramadol. Obesity - Chronic issue - Advise dietary changes DVT PPx: Lovenox (renally dosed) GI PPx: nexium Abx: Omnicef Diet: HH, CC, fluid restriction to 1500mL Code Status: FULL CODE Addendum - Attending - Attending Attestation Date/Time: 11/06/18 0736 I personally evaluated the patient and discussed the management with Dr. Pérez. I agree with the History, Examination, Assessment and Plan documented above with any addition or exceptions noted below. Patient here for multiple reasons. She was originally admitted for hypoxia and determined to be in COPD exacerbation. This continues to improve with neb treatments and supplemental O2, currently on steroid therapy. She was also found to have a subacute CVA as she had complained of R sided deficits over the days before admission. MRI confirmed CVA and she is now on stroke service with therapy and neuro consults in progress. She also has some worsening R eye reddening with dilation of R pupil that is minimally reactive, consider effect due to CVA but have consulted Opht[facility] to come and evaluate. Work on blood pressure and blood sugar control. Continue therapy.
[2018-11-06] MEDS: HumaLOG 300 UNITS/3 ML VIAL SC SCH ×3 (08:49→17:41)
[2018-11-06] MEDS: Insulin Glargine 80 UNITS in Pre-Filled Syringe 1 EACH SC SCH ×2 (08:50→20:24)
[2018-11-06] MEDS: hydrALAZINE 25 MG TAB PO SCH ×4 (08:53→20:25)
[2018-11-06] MEDS: Amlodipine 10 MG TAB PO SCH (08:53)
[2018-11-06] MEDS: tiZANidine HCl 4 MG TAB PO SCH ×3 (08:53→20:25)
[2018-11-06] MEDS: Cefdinir 300 MG CAP PO SCH ×2 (08:54→20:25)
[2018-11-06] MEDS: Aspirin 81 mg Enteric Coated Tablet PO SCH (08:54)
[2018-11-06] MEDS: Gabapentin 300 MG CAP PO SCH ×3 (08:54→20:25)
[2018-11-06] MEDS: predniSONE 20 MG TAB PO SCH (08:54)
[2018-11-06] MEDS: Carvedilol 25 MG TAB PO SCH ×2 (08:54→17:41)
[2018-11-06] MEDS: Erythromycin Base 0.5% Oint 1 GM TUBE EA EYE SCH ×4 (08:54→20:24)
[2018-11-06] MEDS: Enoxaparin Sodium 30 MG/0.3 ML SYRINGE SC SCH (08:55)
[2018-11-06 09:55] LABS: #Lymphocytes 1.4 thou/uL (1.20-3.40); #Monocytes 0.2 thou/uL (0.11-0.59); #Neutrophils 8.1 thou/uL (1.40-6.50); %Eosinophils 0.3 % (0.0-10.0); %Lymphocytes 14.5 % (21.0-51.0); %Monocytes 2.2 % (0.0-10.0); Hemoglobin 10.5 g/dL (12.0-16.0); Mean Corpuscular HGB CONC 33.5 g/dL (32.0-36.0); Mean Corpuscular Hemoglobin 29.7 pg (27.0-31.0); Mean Corpuscular Volume 88.5 fL (78.0-98.0); Mean Platelet Volume 7.6 fL (7.4-10.4); Platelet Count 316 thou/uL (130-400); RBC Distribution Width 11.9 % (11.5-14.5); Red Blood Cell (RBC) Count 3.52 mill/uL (4.20-5.40); White Blood Cell (WBC) Count 9.7 thou/uL (4.8-10.8)
[2018-11-06 10:13] LABS: Anion Gap 14 mmol/L (10-20); BUN (Urea Nitrogen) 27 mg/dL (7.0-18.7); Calc. Creatinine Clearance 49 mL/min (70-130); Calcium 8.8 mg/dL (7.8-10.44); Carbon Dioxide 21 mmol/L (22-29); Chloride 105 mmol/L (98-107); Estimated GFR-MDRD 22; Glucose 267 mg/dL (70-105); Potassium 4.8 mmol/L (3.5-5.1); Sodium 135 mmol/L (136-145)
[2018-11-06] MEDS: Atorvastatin Calcium 40 MG TAB PO SCH (20:25)
[2018-11-07] MEDS: Acetaminophen 325 MG TAB PO PRN ×2 (03:05→08:26)
[2018-11-07] MEDS: Ondansetron ODT 4 MG TAB PO PRN (04:01)
[2018-11-07] MEDS: Carvedilol 25 MG TAB PO SCH ×2 (05:06→16:43)
--- NOTE | 2018-11-07 06:27 | PDOC.FM ---
- Subjective Subjective: Ms Goldman is doing okay this morning. Awaiting R eye procedure this am. Denies difficulty breathing. Has no other complaints. - Objective MAR Reviewed: Yes Vital Signs & Weight: Vital Signs (12 hours) Temp Pulse Resp BP BP Pulse Ox 11/07/18 04:36 98.3 F 78 16 158/83 H 97 11/07/18 01:42 78 18 93 L 11/07/18 00:00 98.1 F 79 16 156/82 H 95 11/06/18 21:59 77 16 94 L 11/06/18 20:25 79 154/76 H 11/06/18 20:00 98 F 79 16 154/76 H 94 L 11/06/18 19:25 79 18 95 Weight Admit Weight 101.65 kg Weight 102.648 kg I&O: 11/05/18 11/06/18 11/07/18 06:59 06:59 06:59 Intake Total 530 1500 Output Total 450 2125 1650 Balance 65 -805 -4456 Result Diagrams: 11/06/18 09:47 11/06/18 09:47 Phys Exam - Physical Examination Constitutional: NAD Respiratory: no wheezing, clear to auscultation bilateral Cardiovascular: RRR, no significant murmur Gastrointestinal: soft, non-tender, positive bowel sounds Musculoskeletal: no edema, pulses present R lower facial droop Psychiatric: normal affect Skin: normal turgor Dx/Plan (1) Acute respiratory failure with hypoxia Code(s): J96.01 - ACUTE RESPIRATORY FAILURE WITH HYPOXIA Status: Acute (2) Chronic renal disease, stage IV Code(s): N18.4 - CHRONIC KIDNEY DISEASE, STAGE 4 (SEVERE) Status: Acute (3) GWEN (acute kidney injury) Code(s): N17.9 - ACUTE KIDNEY FAILURE, UNSPECIFIED Status: Acute (4) Acute worsening of stage 3 chronic kidney disease Code(s): N18.3 - CHRONIC KIDNEY DISEASE, STAGE 3 (MODERATE) Status: Acute (5) Anxiety and depression Code(s): F41.9 - ANXIETY DISORDER, UNSPECIFIED; F32.9 - MAJOR DEPRESSIVE DISORDER, SINGLE EPISODE, UNSPECIFIED Status: Chronic (6) CKD (chronic kidney disease) stage 3, GFR 30-59 ml/min Status: Chronic (7) DM type 2 (diabetes mellitus, type 2) Status: Chronic Qualifiers: (8) Dyslipidemia Code(s): E78.5 - HYPERLIPIDEMIA, UNSPECIFIED Status: Chronic (9) HTN (hypertension) Code(s): I10 - ESSENTIAL (PRIMARY) HYPERTENSION Status: Chronic Qualifiers: - Plan Plan: 42YOF transferred from [place] for further workup and imaging regarding worsening acute hypoxic respiratory failure. Acute hypoxic respiratory failure - No clinical signs of infection. Repeat CXR with no acute changes. - BNP 146. Fluid restrict to 1500mL/day and get QD weights and strict I&Os as well. Echo still pending read - V/Q scan negative - SINCERE Duonebs to Q6H - Will continue supplemental O2 via NC to maintain sats >90% and wean as tolerated today - incentive spirometry ordered. Prednisone started 11/05. Acute CVA - MRI showed involvement of R middle cerbellar peduncle - carotid dopplers negative - neurology consulted, appreciate recommendations - continue statin, aspirin R eye complications 2/2 above - has gotten erythromycin one day. Eye appears worse and now with vision deficit , no eye pain. Dr. Griffith consulted and plans for lateral tarsorrhaphy today CKD stage IV: - at baseline HTN: - uncontrolled. Continue home amlodipine and carvedilol. Will increse hydralazine 25->50 TID. UTI: - Patient diagnosed with E. coli UTI in [place]. On day #9 of 10 day course of Omnicef today. Will continue course to completion. Anemia of chronic disease: - Aware, Hgb 11.2 on admission. Likely 2/2 CKD. Will continue to monitor with QD labs. IDDMII: - ACHS accuchecks and hyperglycemia protocol as aggressive SSI. - BG uncontrolled due to held lantus doses. Will continue with hopefule better control today GERD: - Aware, will resume home meds. CAD s/p angioplasty: - Truong resume home meds. Chronic back pain: - Will resume home tramadol. Obesity - Chronic issue - Advise dietary changes DVT PPx: Lovenox (renally dosed) GI PPx: nexium Abx: Omnicef Diet: HH, CC, fluid restriction to 1500mL Code Status: FULL CODE Addendum - Attending - Attending Attestation Date/Time: 11/07/18 1107 I personally evaluated the patient and discussed the management with Dr. Pérez. I agree with the History, Examination, Assessment and Plan documented above with any addition or exceptions noted below. Patient here for multiple reasons. She continues on post CVA care for her subacute stroke that occurred at outside facility. Continue therapy and work on placement. Continue statin, BS control, BP control, and ASA therapy. She is undergoing eye procedure this morning with Ophtho for her unspecified keratitis. Further recs per that procedure. She is doing improved from respiratory standpoint, continue to wean O2 as tolerated and continue steroids for COPD exacerbation. Respiratory exam improved from previous days.
[2018-11-07] MEDS: HumaLOG 300 UNITS/3 ML VIAL SC SCH ×3 (08:24→16:44)
[2018-11-07] MEDS: predniSONE 20 MG TAB PO SCH (08:25)
[2018-11-07] MEDS: tiZANidine HCl 4 MG TAB PO SCH ×3 (08:25→23:12)
[2018-11-07] MEDS: Amlodipine 10 MG TAB PO SCH (08:25)
[2018-11-07] MEDS: Gabapentin 300 MG CAP PO SCH ×3 (08:25→22:10)
[2018-11-07] MEDS: hydrALAZINE 25 MG TAB PO SCH ×3 (08:26→22:10)
[2018-11-07] MEDS: Cefdinir 300 MG CAP PO SCH ×2 (08:26→22:09)
[2018-11-07] MEDS: traMADol HCl 50 MG TAB PO PRN ×2 (08:26→23:12)
[2018-11-07] MEDS: Erythromycin Base 0.5% Oint 1 GM TUBE EA EYE SCH ×4 (08:27→22:12)
[2018-11-07] MEDS: Aspirin 81 mg Enteric Coated Tablet PO SCH (08:27)
[2018-11-07] MEDS: Insulin Glargine 80 UNITS in Pre-Filled Syringe 1 EACH SC SCH ×2 (08:27→22:13)
[2018-11-07] MEDS: Enoxaparin Sodium 30 MG/0.3 ML SYRINGE SC SCH (08:34)
[2018-11-07] MEDS ORDERED: Ophthalmic Irrigation Solution 15 ML ONE (11:53)
[2018-11-07] MEDS ORDERED: Lidocaine 2% w/Epinephrine 1:200K 20 ML VIAL ONE (12:12)
[2018-11-07] MEDS ORDERED: Lidocaine 2% PF 5 ML VIAL ONE (12:12)
[2018-11-07] MEDS ORDERED: Fentanyl 100 MCG/2 ML VIAL ONE (12:13)
[2018-11-07] MEDS ORDERED: Midazolam HCl 2 mg/2 ml Vial ONE (12:13)
[2018-11-07] MEDS ORDERED: Maxitrol 0.1% Opth Oint 3.5 GM TUBE ONE (13:53)
[2018-11-07 14:57] VITALS: BMI 31.4
[2018-11-07] MEDS ORDERED: Acetaminophen/Codeine 30-300mg Tablet PO PRN (15:35)
[2018-11-07] MEDS ORDERED: Maxitrol 0.1% Opth Oint 3.5 GM TUBE R EYE SCH (15:45)
[2018-11-07] MEDS: Acetaminophen/Codeine 30-300mg Tablet PO PRN (17:17)
[2018-11-07] MEDS: Atorvastatin Calcium 40 MG TAB PO SCH (22:09)
--- NOTE | 2018-11-08 06:20 | PDOC.FM ---
- Subjective Subjective: Ms. Goldman says she is having difficulty breathing this morning. Has patch over R eye. Otherwise no new complaints. - Objective Vital Signs & Weight: Vital Signs (12 hours) Temp Pulse Resp BP BP Pulse Ox 11/08/18 04:00 98.4 F 74 19 136/69 95 11/08/18 00:00 98.9 F 78 19 147/90 H 95 11/07/18 23:22 83 16 93 L 11/07/18 22:10 74 159/90 H 11/07/18 20:00 98.2 F 71 18 140/79 96 11/07/18 18:50 71 18 95 Weight Admit Weight 101.65 kg Weight 99.291 kg I&O: 11/06/18 11/07/18 11/08/18 06:59 06:59 06:59 Intake Total 1500 360 Output Total 2125 9624 900 Balance -625 -2190 -900 Result Diagrams: 11/06/18 09:47 11/06/18 09:47 Phys Exam - Physical Examination dressing over R eye Respiratory: wheezing present (diffuse expiratory wheeze) Cardiovascular: RRR, no significant murmur Gastrointestinal: soft, non-tender, positive bowel sounds Musculoskeletal: no edema Neurological: moves all 4 limbs Psychiatric: normal affect Dx/Plan (1) Acute respiratory failure with hypoxia Code(s): J96.01 - ACUTE RESPIRATORY FAILURE WITH HYPOXIA Status: Acute (2) Chronic renal disease, stage IV Code(s): N18.4 - CHRONIC KIDNEY DISEASE, STAGE 4 (SEVERE) Status: Acute (3) GWEN (acute kidney injury) Code(s): N17.9 - ACUTE KIDNEY FAILURE, UNSPECIFIED Status: Acute (4) Acute worsening of stage 3 chronic kidney disease Code(s): N18.3 - CHRONIC KIDNEY DISEASE, STAGE 3 (MODERATE) Status: Acute (5) Anxiety and depression Code(s): F41.9 - ANXIETY DISORDER, UNSPECIFIED; F32.9 - MAJOR DEPRESSIVE DISORDER, SINGLE EPISODE, UNSPECIFIED Status: Chronic (6) CKD (chronic kidney disease) stage 3, GFR 30-59 ml/min Status: Chronic (7) DM type 2 (diabetes mellitus, type 2) Status: Chronic Qualifiers: (8) Dyslipidemia Code(s): E78.5 - HYPERLIPIDEMIA, UNSPECIFIED Status: Chronic (9) HTN (hypertension) Code(s): I10 - ESSENTIAL (PRIMARY) HYPERTENSION Status: Chronic Qualifiers: - Plan Plan: 42YOF transferred from [place] for further workup and imaging regarding worsening acute hypoxic respiratory failure. Acute hypoxic respiratory failure, improving - No clinical signs of infection. Repeat CXR with no acute changes. - BNP 146. Fluid restrict to 1500mL/day and get QD weights and strict I&Os as well. Echo still pending read - V/Q scan negative - SINCERE Duonebs to Q6H - incentive spirometry ordered. Prednisone started 11/05. - Has improved with duonebs, steroids. Continue to wean O2 Acute CVA - MRI showed involvement of R middle cerbellar peduncle - carotid dopplers negative - neurology consulted, appreciate recommendations - continue statin, aspirin R eye complications 2/2 above - Dr. Griffith consulted - POD #1 s/p R lateral tarsorrhaphy. To remove dressing today and apply Maxidex ointment. Recommends Tylenol #3 prn pain. CKD stage IV: - at baseline HTN: - uncontrolled. Continue home amlodipine and carvedilol. Will increse hydralazine 25->50 TID. UTI: - Patient diagnosed with E. coli UTI in [place]. On day #10 of 10 day course of Omnicef today. Anemia of chronic disease: - Aware, Hgb 11.2 on admission. Likely 2/2 CKD. Will continue to monitor with QD labs. IDDMII: - ACHS accuchecks and hyperglycemia protocol as aggressive SSI. - BG uncontrolled due to held lantus doses. Will continue with hopefule better control today GERD: - Aware, will resume home meds. CAD s/p angioplasty: - Truong resume home meds. Chronic back pain: - Will resume home tramadol. Obesity - Chronic issue - Advise dietary changes Dispo: pending rehab bed availability. Could possibly d/c today DVT PPx: Lovenox (renally dosed) GI PPx: nexium Abx: Omnicef Diet: HH, CC, fluid restriction to 1500mL Code Status: FULL CODE Addendum - Attending - Attending Attestation Date/Time: 11/08/18 1111 I personally evaluated the patient and discussed the management with Dr. Pérez. I agree with the History, Examination, Assessment and Plan documented above with any addition or exceptions noted below. Patient denies shortness of breath at rest when I spoke with her this morning. She does experience dyspnea with exertion, to be expected given her respiratory disease and s/p CVA status. We are awaiting placement at rehab for post CVA care. Continue HTN and DM control. Continue statin and ASA therapy. Dane is evaluating her eye again today but she should not need further hospitalization for that. Continue nebs and steroids for COPD. Wean O2 as tolerated. If she is doing well this PM and accepted for rehab, she should be stable for discharge there.
[2018-11-08] MEDS: Enoxaparin Sodium 30 MG/0.3 ML SYRINGE SC SCH (08:57)
[2018-11-08] MEDS: Insulin Glargine 80 UNITS in Pre-Filled Syringe 1 EACH SC SCH (08:57)
[2018-11-08] MEDS: tiZANidine HCl 4 MG TAB PO SCH ×2 (08:57→16:19)
[2018-11-08] MEDS: Cefdinir 300 MG CAP PO SCH (08:58)
[2018-11-08] MEDS: Aspirin 81 mg Enteric Coated Tablet PO SCH (08:58)
[2018-11-08] MEDS: Gabapentin 300 MG CAP PO SCH ×2 (08:58→15:24)
[2018-11-08] MEDS: predniSONE 20 MG TAB PO SCH (08:58)
[2018-11-08] MEDS: hydrALAZINE 25 MG TAB PO SCH ×2 (08:58→15:25)
[2018-11-08] MEDS: Amlodipine 10 MG TAB PO SCH (08:59)
[2018-11-08] MEDS: Carvedilol 25 MG TAB PO SCH ×2 (08:59→16:24)
[2018-11-08] MEDS: HumaLOG 300 UNITS/3 ML VIAL SC SCH ×2 (09:00→15:26)
[2018-11-08] MEDS: Acetaminophen/Codeine 30-300mg Tablet PO PRN (09:07)
[2018-11-08] MEDS: Erythromycin Base 0.5% Oint 1 GM TUBE EA EYE SCH (10:19)
[2018-11-08] MEDS ORDERED: Maxitrol 0.1% Opth Oint 3.5 GM TUBE R EYE SCH (15:00)
[2018-11-08] MEDS: traMADol HCl 50 MG TAB PO PRN (15:24)
[2018-11-08 15:43] VITALS: TEMP 97.7
[2018-11-08 16:03] VITALS: BP 154/96
[2018-11-08] MEDS: HumaLOG 300 UNITS/3 ML VIAL SC PRN (16:26)
--- NOTE | 2018-11-11 07:49 | DIS ---
DATE OF ADMISSION: 11/03/2018 DATE OF DISCHARGE: 11/08/2018 RESIDENT: Tsering Pérez DO ADMITTING ATTENDING: Renuka Chambers MD DISCHARGE ATTENDING: Delfino Collazo MD CONSULTS: 1. Neurology, Kamaljit Costa MD. 2. Ophthalmology, Sami Griffith MD. 3. Physical Therapy, Occupational Therapy, Speech Therapy, stroke team. PROCEDURES: 1. 11/03/2018, V/Q scan showed very low probability for pulmonary embolism. Unremarkable scan. 2. 11/04/2018, brain MRI showed acute infarction within the right middle cerebellar peduncle. This abnormality is in the right AICA territory. 3. 11/05/2018, carotid Doppler study showed no evidence of hemodynamically significant stenosis of either internal carotid artery. 4. 11/05/2018, chest x-ray showed no focal consolidation, retrocardiac mixed density which may relate to hiatal hernia. This could be further evaluated with followup double-contrast upper GI as indicated. 5. 11/08/2018, echocardiogram showed ejection fraction of 50% to 55%, technically difficult study with poor endocardial definition, E-A flow reversal noted suggestive of diastolic dysfunction. Cannot exclude hypokinesis along the inferior wall. Mild mitral regurgitation. Mild tricuspid regurgitation. 6. 11/07/2018, right lateral tarsorrhaphy by Dr. Griffith. DISCHARGE MEDICATIONS: 1. Tizanidine 4 mg p.o. t.i.d. 2. Amlodipine 10 mg p.o. daily. 3. Nexium 20 mg p.o. daily. 4. Gabapentin 300 mg p.o. t.i.d. 5. Zofran 4 mg p.o. q.6 hours p.r.n. 6. Insulin NovoLog FlexPen for mealtime insulin. 7. Lantus 80 units subcu b.i.d. 8. Carvedilol 12.5 mg p.o. b.i.d. 9. Tylenol No. 3, 1-2 tablets p.o. q.4 hours p.r.n. 10. Aspirin 81 mg p.o. daily. 11. Lipitor 80 mg p.o. at bedtime. 12. Carvedilol 25 mg p.o. b.i.d. 13. Hydralazine 50 mg p.o. t.i.d. 14. DuoNeb 3 mL nebulizer q.6 hours. 15. Meclizine 25 mg p.o. q.8 hours p.r.n. 16. Maxitrol ophthalmic ointment, neomycin, polymyxin, dexamethasone in right eye t.i.d. 17. Prednisone 40 mg p.o. q.a.m. for 2 days. 18. Tramadol 50 mg p.o. q.6 hours p.r.n. DISCONTINUED MEDICATIONS: Hydralazine 12.5 mg p.o. t.i.d. HISTORY OF PRESENT ILLNESS: A 42-year-old female with past medical history of insulin-dependent diabetes, hypertension, CKD stage 4, and coronary artery disease status post angioplasty, presented to the ED from [place] due to progressively worsening respiratory status. She was initially admitted to [place] for treatment of UTI, but she was transferred for further evaluation and testing as the patient required a V/Q scan which cannot be completed at that facility due to renal function. She also endorsed right-sided mouth weakness and facial numbness that have been ongoing for the past month. She also endorsed associated dysgraphia. She was admitted for acute hypoxic respiratory failure and workup was completed for this. Her V/Q scan was negative. An echo was ordered and patient was fluid restricted. Results of this were as above. She was given one time dose of IV Lasix. The patient, however, did seem to improve most with DuoNeb and eventual addition of steroids as well. COPD component likely contributed as well. The patient was gradually weaned down on supplemental oxygen. In regard to her neurologic complaints, an MRI was ordered and results are as above. Neurology was consulted and patient was further worked up for this CVA. Medical management was optimized with medications. The patient's chronic medical problems remained at baseline throughout hospitalization and other home medications were continued. Due to her CVA, the patient did have right eye complications. 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 Ophthalmology, Dr. Griffith, was consulted and he performed a right lateral tarsorrhaphy. Dressing was removed prior to discharge and Tylenol No. 3 was prescribed by him for recovery. The patient to follow up with him for further management of this. The patient completed 10-day course of Omnicef while hospitalized for E coli UTI that was diagnosed initially in the [place]. Her hypertension medications were titrated as needed. Her blood pressure was better under control with increased dose of hydralazine. Additionally, her blood sugars were monitored and insulin was adjusted. She did have some episodes in which she felt hypoglycemic symptoms with blood glucose of 70, whenever she received 86 units of Lantus b.i.d. For this reason, she was continued on 80 units of Lantus and seemed to tolerate this well. The patient was discharged to inpatient rehab for further rehabilitation after her stroke. She did endorse continued wobbly gait, sensation deficits on right lateral face and right side of body. In addition, she did have a right lower facial droop. DISPOSITION: Stable. DISCHARGE INSTRUCTIONS: 1. Location: Inpatient Rehab. 2. Diet: Heart healthy and diabetic. 3. Activity: As tolerated. 4. Followup: Follow up with PCP, Dr. Hutton, in 7 days. Follow up with Dr. Griffith as recommended. Job ID: [id number]
--- NOTE | 2018-11-11 11:17 | OP ---
DATE OF PROCEDURE: 11/07/2018 PREOPERATIVE DIAGNOSIS: Neurotrophic keratopathy, right eye. POSTOPERATIVE DIAGNOSIS: Neurotrophic keratopathy, right eye. CLINICAL SUMMARY: The patient is a 42-year-old woman with a right cerebral peduncle/brainstem infarct with partial right cranial nerve V palsy and right facial/corneal anesthesia. PROCEDURE PERFORMED: Right lateral tarsorrhaphy. ANESTHESIA: Monitored anesthesia control. DESCRIPTION OF PROCEDURE: The patient was taken to the operating room, given 2% lidocaine with epinephrine injection along the tarsal conjunctivae just above and below the tarsus of the lower and upper lids with corresponding area subdermal injections. She was then prepped and draped for right ocular surgery. Anesthesia was made along the conn line of the lateral one-half of the upper and lower lids. Then, this anesthesia was extended with blunt and sharp scissor dissection for several millimeters into the lid. Then, a thin strip was excised along the posterior (tarsal) lid margins. About four or five 7-0 Vicryl mattress sutures were placed to approximate the 2 tarsal margins. Maxitrol ointment was placed along the lid margins and a pressure dressing was placed over the eye to minimize bleeding. She was then taken to the recovery area in satisfactory condition. Job ID: [id number]
== END 2018-11-08 17:23 | DRG 64 ==
LOC: ERS 14:05 → 2NO 15:00 → 2SE 11-04 20:27
PROVIDERS: ADMIT Family Medicine; ATTEND Family Medicine
PROC: 08QQXZZ Repair Right Lower Eyelid, External Approach (ICD-10-PCS; principal; 2018-11-07)
PROC: 08QNXZZ Repair Right Upper Eyelid, External Approach (ICD-10-PCS; 2018-11-07)
DX: I63.9 Cerebral infarction, unspecified (principal); J96.01 Acute respiratory failure with hypoxia; I13.0 Hypertensive heart and chronic kidney disease with heart failure and stage 1 through stage 4 chronic kidney disease, or unspecified chronic kidney disease; N18.4 Chronic kidney disease, stage 4 (severe); N39.0 Urinary tract infection, site not specified; N17.9 Acute kidney failure, unspecified; E11.22 Type 2 diabetes mellitus with diabetic chronic kidney disease; I25.10 Atherosclerotic heart disease of native coronary artery without angina pectoris; D63.1 Anemia in chronic kidney disease; G89.29 Other chronic pain; M54.9 Dorsalgia, unspecified; M51.16 Intervertebral disc disorders with radiculopathy, lumbar region; K21.9 Gastro-esophageal reflux disease without esophagitis; E11.649 Type 2 diabetes mellitus with hypoglycemia without coma; E66.9 Obesity, unspecified; F41.9 Anxiety disorder, unspecified; H16.231 Neurotrophic keratoconjunctivitis, right eye; F32.9 Major depressive disorder, single episode, unspecified; E78.5 Hyperlipidemia, unspecified; H53.8 Other visual disturbances; I50.9 Heart failure, unspecified; Z88.1 Allergy status to other antibiotic agents; Z88.8 Allergy status to other drugs, medicaments and biological substances; Z79.4 Long term (current) use of insulin; Z98.51 Tubal ligation status; Z68.30 Body mass index [BMI] 30.0-30.9, adult; Z79.899 Other long term (current) drug therapy; Z87.891 Personal history of nicotine dependence
CPT/HCPCS: 36415; 36416; 70551; 71045; 78582; 80048; 83880; 85025; 93005; 93306; 93880; 94640; 94760; 96374; A9540; A9558; J1650; J1825; J2001; J2250; J2405; J3010; J7512; J7620; Q0162

== ENCOUNTER 2018-12-18 10:46 | Emergency (ER) | payer OTHER ==
--- NOTE | 2018-12-18 11:17 | CT ---
CT BRAIN WITHOUT CONTRAST: HISTORY: Headache, previous stroke COMPARISON: 12/13/2018 FINDINGS: There is no acute intracranial hemorrhage, mass effect or midline shift or ventriculomegal y. Imaged paranasal sinuses are clear. There is focal hypodensity of the lateral right cerebellar hemisphere indicating cavitary encephalomalacia. No pneumocephalus or depressed calvarial fracture. IMPRESSION: 1. No evidence of acute intracranial process. 2. Hypodensity of the lateral right cerebellar hemorrhage, indicating chronic infarction.
[2018-12-18 12:24] LABS: #Eosinphils 0.1 thou/uL (0.0-0.7); #Lymphocytes 2.6 thou/uL (1.20-3.40); #Monocytes 0.5 thou/uL (0.11-0.59); #Neutrophils 6.5 thou/uL (1.40-6.50); %Basophils 0.3 % (0.0-1.0); %Eosinophils 0.9 % (0.0-10.0); %Lymphocytes 26.7 % (21.0-51.0); %Neutrophils 67.1 % (42.0-75.0); Hemoglobin 11.5 g/dL (12.0-16.0); Mean Corpuscular HGB CONC 33.3 g/dL (32.0-36.0); Mean Corpuscular Hemoglobin 29.1 pg (27.0-31.0); Mean Corpuscular Volume 87.6 fL (78.0-98.0); Mean Platelet Volume 8.5 fL (7.4-10.4); Platelet Count 237 thou/uL (130-400); RBC Distribution Width 12.7 % (11.5-14.5); Red Blood Cell (RBC) Count 3.94 mill/uL (4.20-5.40); White Blood Cell (WBC) Count 9.7 thou/uL (4.8-10.8)
[2018-12-18] MEDS ORDERED: Acetaminophen 500 MG TAB ONE (12:31)
[2018-12-18] MEDS ORDERED: Ondansetron PF 4 MG/2 ML Vial ONE (12:31)
[2018-12-18] MEDS ORDERED: Ketorolac Tromethamine 30 MG/ML VIAL ONE (12:31)
[2018-12-18 12:52] LABS: ALT (SGPT) 11 U/L (8-55); AST (SGOT) 22 U/L (5-34); Albumin 3.4 g/dL (3.5-5.0); Alkaline Phosphatase 141 U/L (40-150); Anion Gap 14 mmol/L (10-20); BUN (Urea Nitrogen) 27 mg/dL (7.0-18.7); Bilirubin, Total 0.3 mg/dL (0.2-1.2); Calc. Creatinine Clearance 0 mL/min (70-130); Calcium 8.8 mg/dL (7.8-10.44); Carbon Dioxide 19 mmol/L (22-29); Chloride 106 mmol/L (98-107); Estimated GFR-MDRD 26; Globulin 3.6 g/dL (2.4-3.5); Glucose 115 mg/dL (70-105); Potassium 4.6 mmol/L (3.5-5.1); Sodium 134 mmol/L (136-145)
--- NOTE | 2018-12-21 09:40 | EKG ---
Test Reason : Blood Pressure : / mmHG Vent. Rate : 065 BPM Atrial Rate : 065 BPM P-R Int : 142 ms QRS Dur : 094 ms QT Int : 464 ms P-R-T Axes : 020 -20 016 degrees QTc Int : 482 ms Normal sinus rhythm Inferior infarct , age undetermined Abnormal ECG Confirmed by LUCY ASHRAF ([id number]), video tape editor RACHELE BUSBY ([id number]) on 12/21/2018 9:40:06 AM Referred By: Confirmed By:LUCY ASHRAF
== END 2018-12-18 13:55 | disposition home or self-care (01) ==
LOC: ERS 10:46
DX: R51 Headache (principal); I12.9 Hypertensive chronic kidney disease with stage 1 through stage 4 chronic kidney disease, or unspecified chronic kidney disease; N18.3 Chronic kidney disease, stage 3 (moderate); I25.10 Atherosclerotic heart disease of native coronary artery without angina pectoris; K21.9 Gastro-esophageal reflux disease without esophagitis; E11.22 Type 2 diabetes mellitus with diabetic chronic kidney disease; Z87.891 Personal history of nicotine dependence; Z79.899 Other long term (current) drug therapy; Z79.4 Long term (current) use of insulin
CPT/HCPCS: 36415; 70450; 80053; 84484; 85025; 93005; 96374; 96375; J1885; J2405

== ENCOUNTER 2019-02-04 21:32 | Observation (INO) | payer OTHER ==
--- NOTE | 2019-02-04 22:18 | PDOC.FPRHP ---
- History of Present Illness Chief Complaint: right cheek, tongue swollen and tingling History of Present Illness: 43 yo f with hx of CVA, DM, HTN, HLD presents with right sided facial weakness/ droop and tingling, swollen right cheek and tongue (more so than usual), increased slurring of speech, and a headache. She had a CVA in October, with residual right sided droop. Today (02/04) at 0600 she noted that her vision was blurrier, her speech was more slurred, and she perceives tingling on the right side. She went to the [facility] around 0700. Her main complaints are pain in her face/jaw with increased swelling and concern for her speech. She had a fall about three weeks ago and remembers hitting her head. She also has two broken teeth. ED Course: [facility]: aspirin Brain CT (No acute findings) - Allergies/Adverse Reactions Allergies Allergy/AdvReac Type Severity Reaction Status Date / Time ciprofloxacin Allergy Hives Verified 02/05/19 02:31 lisinopril Allergy Anaphylaxis Verified 02/05/19 02:31 - Home Medications Medication Instructions Recorded Confirmed Type Amlodipine [Norvasc] 10 mg PO DAILY #30 tab 05/10/18 02/05/19 Rx Gabapentin [Neurontin] 300 mg PO TID #90 cap 05/10/18 02/05/19 Rx Insulin Aspart [NovoLOG FlexPen] 1 - 12 units SC TID- 11/03/18 02/05/19 History Insulin Glargine [Lantus] 80 units SC BID 11/03/18 02/05/19 History Acetaminophen W/ Codeine 1 tab PO Q4H PRN tab 11/08/18 02/05/19 Rx [Acetaminophen/Codeine #3] Aspirin [Ecotrin Low Strength] 81 mg PO DAILY tab 11/08/18 02/05/19 Rx Atorvastatin Calcium [Lipitor] 80 mg PO HS tab 11/08/18 02/05/19 Rx Carvedilol [Coreg] 25 mg PO BID-WM tab 11/08/18 02/05/19 Rx hydrALAZINE [Apresoline] 50 mg PO TID tab 11/08/18 02/05/19 Rx Clindamycin HCl 450 mg PO Q8H 7 Days #21 capsule 02/05/19 Rx Fish Oil 1,000 mg PO DAILY #30 cap 02/05/19 Rx Hydrochlorothiazide 25 mg PO DAILY 02/05/19 02/05/19 History - History PMHx: DM II GERD HTN HLD hx of CVA, 10/2018 CKD, stage 3 Hx of GA in 2015 CAD with angioplasty 03/2016 PSHx: x2 Back surgery [id number] discectomy tonsillectomy tubal ligation FHx: Mom - GA in her 60s Social: Former smoker, quit after stroke. 1-1.5 packs/week x 20 years. Former drinker, quit after stroke Remote history of cocaine use - Review of Systems General: denies: fever/chills, weight/appetite/sleep changes, fatigue Eyes: reports: vision changes. denies: eye pain ENT: denies: nasal congestion, rhinorrhea Respiratory: denies: cough, congestion, shortness of breath Cardiovascular: denies: chest pain, palpitation, edema Gastrointestinal: reports: nausea. denies: vomiting, diarrhea, constipation Genitourinary: denies: incontinence, dysuria, polyuria Skin: denies: rashes, lesions Musculoskeletal: denies: pain, tenderness Neurological: reports: numbness, other (dizziness). denies: syncope, seizure Psychological: denies: anxiety, depression - Vital signs BP: 106/86 HR: 93 RR: 19 Tmax: 98.4 Pox: 95% on RA Wt: 97kg - Physical Exam Constitutional: NAD, awake, alert and oriented HEENT: normocephalic and atraumatic, EOMI (right eyelid is partiall sewn shut), conjunctiva clear, grossly normal vision, grossly normal hearing, normal nasal mucosa, MMM Neck: supple, FROM Chest: no-tender to palpation Heart: RRR, normal S1/S2, no murmurs/rubs/gallops, pulses present, no edema Lungs: CTAB, no respiratory distress, good air movement Abdomen: soft, non-tender, bowel sounds present Musculoskeletal: normal structure, normal tone, ROM grossly normal Neurological: CN II-XII intact -Neurological: Right sided weakness, discoordinated movement of the RUE. 4/5 strength of Right UE and LE. Decreased, but intact, sensation on the right side. Skin: no rash/lesions, good turgor Heme/Lymphatic: no unusual bruising or bleeding, no purpura Psychiatric: normal mood and affect (tearful and sad.), good judgment and insight, intact recent and remote memory FMR H&P: Results - Labs Result Diagrams: 02/05/19 04:50 02/05/19 03:22 - EKG Interpretation EKG: EKG in [place]: NSR w/ left axis and poor anterior R wave progression and inferior Q waves. - Radiology Interpretation CT scan - head Status: report reviewed by me (No acute findings) FMR H&P: A/P - Problem List (1) GERD (gastroesophageal reflux disease) Current Visit: No Status: Acute Code(s): K21.9 - GASTRO-ESOPHAGEAL REFLUX DISEASE WITHOUT ESOPHAGITIS (2) CKD (chronic kidney disease) stage 3, GFR 30-59 ml/min Current Visit: No Status: Chronic Comment: stable (3) DM type 2 (diabetes mellitus, type 2) Current Visit: No Status: Chronic Qualifiers: Comment: continue accuchecks, insulin sliding scale. Start lantus (4) HTN (hypertension) Current Visit: No Status: Chronic Code(s): I10 - ESSENTIAL (PRIMARY) HYPERTENSION Qualifiers: Comment: hypertensive urgency has resolved, resume home medications. Mild hypokalemia, discontinue HCTZ (5) History of stroke Current Visit: Yes Status: Acute Code(s): Z86.73 - PRSNL HX OF TIA (TIA), AND CEREB INFRC W/O RESID DEFICITS - Plan 1. Rule out CVA * No family at bedside to confirm baseline status. * Symptoms began at 0600 on 02/04/19. Not a candidate for TPA. * Brain CT showed no intracranial bleed. * Recently worked up for stroke in October: * Echo: diastolic dysfxn w/ preserved EF. * Carotid doppler - no significant stenosis * MRI ordrered for AM. * Labs: A1c, TSH, magnesium, phosphorous, fasting lipid profile, cbc, cmp. 2. Palpable mass in right mandible * She is complaining of pain and swelling of the right side of her face. * Ordered face x-ray, due to fall recently and poor dentition. * Rule out abscess or fracture. 3. Insulin dependent diabetes mellitus, type II * Will restart home dose of Lantus * Mod SS and Bedtime SS prn. 4. HTN * will allow for permissive htn, hold home meds * Will restart home meds when CVA is ruled out / on discharge. 5. HLD * Restart atorvastatin 80mg 6. Hx of CVA * fasting lipid profile ordered * Atorvastatin and Aspirin 7. CKD stage III * stable, at baseline * Will continue to monitor 8. GERD * Restart Nexium 9. Anxiety/Depression * Continue escitalopram Disposition/LOS: Dispo: Stroke obs Code: Full VTE: lovenox FMR H&P: Upper Level - Pertinent history 43 yo f with pmhx of T2DM and recent CVA in October presents with worsening dysphasia, tongue and right sided face tingling/swelling worse than usual. She reports residual facial droop from her prior CVA in October but noticed worsening sx this morning around 0600. She then went to the ER at 0700 and was subsequently transferred here after being evaluated. She of note, reports worsening dentition, several broken teeth and a right sided mandibular mass/ pain in her jaw line. - Pertinent findings BP: 134/85 HR: 89 T:98.4 O2sat: 98%RA PE: Right eyelid and face droop with half of right eyelid sewn shut after CVA, UE and LE b/l strength 4/5, sensation intact hard right mandibular mass mildly dysarthric speech, unclear baseline RRR CTAB CT head w/o con: negative for acute intracranial process carotid doppler: recently in October without severe stenosis TTE in October 2018: diastolic dysfunction, EF 50-55% Labs: BUN/Cr 27/2.38 - Plan Date/Time: 02/04/19 [id number] A/P: CVA rule out- -unclear baseline, sx started ~0600 of worsening dysarthria and facial swelling , Brain CT w/o contrast ruled out acute intracranial bleed; recent carotid doppler in October without significant stenosis, and recent TTE with diastolic dysfunction but no evidence of afib and cardioembolic disease. Will admit to stroke unit and order an MRI wwo contrast for the morning to rule out CVA. -DDx: pt has more dentition and c/o pain and swelling near localized mandibular mass that is tender to palpation, but hard and does not feel like an abscess; she also could be having an allergic reaction to something she ate as she endorses tongue swelling, but pt is overall a difficult historian and no family at bedside to help with sx explanation. -Ordered hba1c, tsh, mg, phosph, and flp. -will allow for permissive hypertension -will consult stroke team of the pt did have a stroke -will hold off on getting additional imaging such as a CTA head/neck or echo as pt recently had these in October. Poor dentition- -right mandibular lesion/mass without consistency of an abscess but could explain pt's localized swelling -ordered facial xray T2DM- -hba1c, home meds HTN- -will allow for permissive htn -hold home meds HLD- -restart home meds Hx of CVA -flp -continue high intensity statin and aspirin daily CKD- -at baseline Norbert Iraheta MD, PGY-3 Addendum - Attending - Attending Attestation Date/Time: 02/05/19 1113 I personally evaluated the patient and discussed the management with Dr. Montana I agree with the History, Examination, Assessment and Plan documented above with any addition or exceptions noted below - 43 yo f with hx of CVA, DM, HTN, HLD presents with right sided facial weakness/droop and tingling, increased slurring of speech, and a headache. She had a CVA in October, with residual right sided droop. Today (02/04) at 0600 she noted that her vision was blurrier, her speech was more slurred, and she perceives tingling on the right side. She went to the [facility] around 0700. Her main complaints are pain in her face/jaw with increased swelling and concern for her speech. Alos c/o jaw pain; has broken tooth. PMH/PSH/Meds/All reviewed and agree with resident's documentation. Afebrile VSS. Exam repeated by me and agree with resident's findings. CT brain and MRI- no acute findings. A/P: 1) Paresthesia- negative imaging. Plan to d/c home 2) Dental abscess- start clindamycin
[2019-02-04] MEDS ORDERED: Acetaminophen 500 MG TAB ONE (23:11)
[2019-02-04] MEDS ORDERED: Ondansetron ODT 4 MG TAB PO PRN (23:50)
[2019-02-04] MEDS ORDERED: Acetaminophen 325 MG TAB PO PRN (23:50)
[2019-02-05] MEDS ORDERED: Enoxaparin Sodium 30 MG/0.3 ML SYRINGE SC SCH (00:15)
[2019-02-05 03:03] VITALS: BMI 32.3
[2019-02-05 03:37] LABS: Hemoglobin A1c 8.2 % (4.0-6.0)
[2019-02-05 03:52] LABS: ALT (SGPT) 11 U/L (8-55); AST (SGOT) 11 U/L (5-34); Albumin 3.4 g/dL (3.5-5.0); Alkaline Phosphatase 151 U/L (40-150); Anion Gap 13 mmol/L (10-20); BUN (Urea Nitrogen) 28 mg/dL (7.0-18.7); Bilirubin, Total 0.2 mg/dL (0.2-1.2); Calc. Creatinine Clearance 46 mL/min (70-130); Calcium 8.9 mg/dL (7.8-10.44); Carbon Dioxide 22 mmol/L (22-29); Cardiac Risk 7.4 (Less than 4.5); Chloride 101 mmol/L (98-107); Cholesterol 297 mg/dl (< 200 Desired); Estimated GFR-MDRD 21; Globulin 3.4 g/dL (2.4-3.5); Glucose 320 mg/dL (70-105); HDL Cholesterol 40 mg/dL (>60 Neg Risk); Magnesium 1.8 mg/dL (1.6-2.6); Phosphorus 3.8 mg/dL (2.3-4.7); Potassium 4.3 mmol/L (3.5-5.1); Protein, Total 6.8 g/dL (6.0-8.3); Sodium 132 mmol/L (136-145); Triglycerides 537 mg/dL (Less than 150)
[2019-02-05 05:03] LABS: #Eosinphils 0.1 thou/uL (0.0-0.7); #Lymphocytes 3.1 thou/uL (1.20-3.40); #Monocytes 0.4 thou/uL (0.11-0.59); #Neutrophils 5.5 thou/uL (1.40-6.50); %Basophils 0.5 % (0.0-1.0); %Eosinophils 1.1 % (0.0-10.0); %Lymphocytes 33.5 % (21.0-51.0); %Monocytes 4.6 % (0.0-10.0); %Neutrophils 60.3 % (42.0-75.0); Hemoglobin 11.2 g/dL (12.0-16.0); Mean Corpuscular HGB CONC 34.3 g/dL (32.0-36.0); Mean Corpuscular Hemoglobin 30.2 pg (27.0-31.0); Mean Corpuscular Volume 87.8 fL (78.0-98.0); Platelet Count 249 thou/uL (130-400); RBC Distribution Width 12.3 % (11.5-14.5); White Blood Cell (WBC) Count 9.1 thou/uL (4.8-10.8)
[2019-02-05] MEDS ORDERED: Dextrose 50% Abboject 50 ML SYRINGE SLOW IVP PRN (06:16)
[2019-02-05] MEDS ORDERED: Dextrose 5% in Water 1,000 ML IV PRN (06:16)
[2019-02-05] MEDS ORDERED: HumaLOG 300 UNITS/3 ML VIAL SC PRN (06:16)
[2019-02-05] MEDS ORDERED: Acetaminophen 325 MG TAB PO PRN (06:46)
[2019-02-05] MEDS: HumaLOG 300 UNITS/3 ML VIAL SC PRN ×2 (06:57→13:32)
--- NOTE | 2019-02-05 07:58 | RAD ---
FACIAL BONES 3 VIEWS: HISTORY: Right mandibular mass FINDINGS: No significant bony abnormalities are seen. The paranasal sinuses are well aerated. If clinically indicated, further evaluation with CT scan would be helpful.
[2019-02-05] MEDS ORDERED: Aspirin 81 mg Enteric Coated Tablet PO SCH (09:00)
[2019-02-05] MEDS ORDERED: Insulin Glargine 86 UNITS in Pre-Filled Syringe 1 EACH SC SCH (09:00)
[2019-02-05] MEDS ORDERED: Gabapentin 300 MG CAP PO SCH (09:00)
--- NOTE | 2019-02-05 09:30 | MRI ---
Exam: Brain MRI without contrast HISTORY: Rule out for CVA. Dizziness. COMPARISON: 11/04/2018 FINDINGS: Calvarial marrow signal intensity: Appropriate T1 signal Gradient echo sequence: No hemorrhage Brain parenchyma: No mass, mass effect or midline shift. Brain volume, age-appropriate. Malacic and g liotic changes involving the right middle cerebellar peduncle as well as the lateral aspect of the right cerebellar hemisphere. Cortical conn-white matter differentiation: Cerebral cortical conn-white white matter differentiation is preserved. Restricted diffusion: Central arterial flow voids are maintained. Absent restricted diffusion White matter signal intensities:Stable T2, FLAIR white matter hyperintensities due to chronic small v essel ischemic changes Sinuses: Adequate aeration of the paranasal sinuses and mastoid air cells. IMPRESSION: Absent restricted diffusion. No acute infarct.
[2019-02-05] MEDS ORDERED: Ondansetron PF 4 MG/2 ML Vial IVP PRN (11:24)
[2019-02-05] MEDS ORDERED: Acetaminophen/Codeine 30-300mg Tablet PO SCH (11:45)
[2019-02-05 12:03] VITALS: BP 165/88; TEMP 98.4
[2019-02-05] MEDS ORDERED: Atorvastatin Calcium 40 MG TAB PO SCH (21:00)
--- NOTE | 2019-02-07 10:40 | DIS ---
DATE OF ADMISSION: 02/04/2019 DATE OF DISCHARGE: 02/05/2019 RESIDENT: Tsering Pérez DO ADMITTING ATTENDING: Anali Caballero MD DISCHARGE ATTENDING: Anali Caballero MD CONSULTS: None. PROCEDURES PERFORMED: 1. 02/05/2019, brain MRI showed absent restricted diffusion. No acute infarct. 2. 02/05/2019, facial bones x-ray showed no significant bony abnormality seen. The paranasal sinuses are well aerated. PRIMARY DIAGNOSIS: Dental infection. SECONDARY DIAGNOSES: 1. Insulin-dependent diabetes. 2. Hypertension. 3. Hyperlipidemia. 4. History of cerebrovascular accident. 5. Chronic kidney disease, stage 3. 6. Gastroesophageal reflux disease. 7. Anxiety and depression. DISCHARGE MEDICATIONS: 1. Amlodipine 10 mg p.o. daily. 2. Gabapentin 300 mg p.o. t.i.d. 3. Insulin glargine 80 units subcu b.i.d. 4. NovoLog insulin sliding scale subcu t.i.d. with meals. 5. Tylenol No. 3 one tab p.o. q.4 hours p.r.n. 6. Aspirin 81 mg p.o. daily. 7. Lipitor 80 mg p.o. at bedtime. 8. Carvedilol 25 mg p.o. b.i.d. 9. Hydralazine 50 mg p.o. t.i.d. 10. Hydrochlorothiazide 25 mg p.o. daily. 11. Clindamycin 450 mg p.o. q.8 hours for 7 days #21. 12. Fish oil 1000 mg p.o. daily #30. HISTORY OF PRESENT ILLNESS: A 43-year-old female with significant history of recent CVA this year, presented to the ER for right-sided facial weakness, droop, tingling and a swollen right cheek, increased slowing of speech and headache. She was transferred to our facility for further workup and observation. Imaging completed as above. The patient's symptoms were most likely due to dental infection on the right. The patient reports it has been difficult to get to a dentist appointment. The patient had no deficits above her baseline at the time of discharge earlier this year. The patient was discharged with antibiotics for this infection and recommended to follow up as soon as possible with a dentist. Additionally considering elevated cholesterol levels. The patient was started on fish oil. DISPOSITION: Guarded. DISCHARGE INSTRUCTIONS: 1. Location: Home. 2. Diet: Diabetic and heart healthy. 3. Activity: As tolerated. 4. Followup: Followup with PCP in 3 days. Followup with dentist as soon as possible. Job ID: [id number] MTDD
== END 2019-02-05 15:45 | disposition home or self-care (01) ==
LOC: ERS 21:32 → 2SE 22:15 → ERS 02-05 00:58
PROVIDERS: ADMIT Family Medicine; ATTEND Family Medicine
DX: R29.810 Facial weakness (principal); R20.2 Paresthesia of skin; R47.81 Slurred speech; R51 Headache; K04.7 Periapical abscess without sinus; I69.392 Facial weakness following cerebral infarction; E78.5 Hyperlipidemia, unspecified; I12.9 Hypertensive chronic kidney disease with stage 1 through stage 4 chronic kidney disease, or unspecified chronic kidney disease; E11.22 Type 2 diabetes mellitus with diabetic chronic kidney disease; N18.3 Chronic kidney disease, stage 3 (moderate); I25.10 Atherosclerotic heart disease of native coronary artery without angina pectoris; K21.9 Gastro-esophageal reflux disease without esophagitis; F41.9 Anxiety disorder, unspecified; F32.9 Major depressive disorder, single episode, unspecified; G25.81 Restless legs syndrome; G89.29 Other chronic pain; M54.9 Dorsalgia, unspecified; Z87.891 Personal history of nicotine dependence; Z79.4 Long term (current) use of insulin; Z79.899 Other long term (current) drug therapy; Z88.1 Allergy status to other antibiotic agents; Z88.8 Allergy status to other drugs, medicaments and biological substances
CPT/HCPCS: 36415; 36416; 70150; 70551; 80053; 80061; 83036; 83735; 84100; 84443; 85025; G0378; J1815

== ENCOUNTER 2019-03-24 07:10 | Observation (INO) | payer OTHER, SELFPAY ==
[2019-03-24 07:38] LABS: #Basophils 0.1 thou/uL (0.0-0.2); #Eosinphils 0.1 thou/uL (0.0-0.7); #Lymphocytes 3.7 thou/uL (1.20-3.40); #Monocytes 0.5 thou/uL (0.11-0.59); #Neutrophils 6.2 thou/uL (1.40-6.50); %Basophils 0.7 % (0.0-1.0); %Eosinophils 1.2 % (0.0-10.0); %Monocytes 4.8 % (0.0-10.0); %Neutrophils 58.2 % (42.0-75.0); Hemoglobin 11.6 g/dL (12.0-16.0); Mean Corpuscular HGB CONC 34.9 g/dL (32.0-36.0); Mean Corpuscular Hemoglobin 29.6 pg (27.0-31.0); Mean Corpuscular Volume 84.8 fL (78.0-98.0); Mean Platelet Volume 8.6 fL (7.4-10.4); Platelet Count 253 thou/uL (130-400); RBC Distribution Width 12.1 % (11.5-14.5); Red Blood Cell (RBC) Count 3.93 mill/uL (4.20-5.40); White Blood Cell (WBC) Count 10.6 thou/uL (4.8-10.8)
[2019-03-24] MEDS ORDERED: Aspirin Chewable 81 MG TAB ONE (07:39)
[2019-03-24] MEDS ORDERED: Nitroglycerin 2% Ointment 1 INCH/1 GM Packet ONE (07:39)
[2019-03-24 08:00] LABS: ALT (SGPT) 22 U/L (8-55); AST (SGOT) 21 U/L (5-34); Albumin 3.5 g/dL (3.5-5.0); Alkaline Phosphatase 131 U/L (40-150); Anion Gap 12 mmol/L (10-20); BUN (Urea Nitrogen) 23 mg/dL (7.0-18.7); Bilirubin, Total 0.2 mg/dL (0.2-1.2); CK (CPK) 512 U/L (29-168); Calc. Creatinine Clearance 0 mL/min (70-130); Calcium 7.9 mg/dL (7.8-10.44); Carbon Dioxide 21 mmol/L (22-29); Chloride 102 mmol/L (98-107); Estimated GFR-MDRD 21; Glucose 355 mg/dL (70-105); Lipase 146 U/L (8-78); Protein, Total 6.5 g/dL (6.0-8.3); Sodium 131 mmol/L (136-145)
--- NOTE | 2019-03-24 08:02 | RAD ---
Chest AP view INDICATION: Shortness of breath and weakness COMPARISON: November 05, 2018 FINDINGS: Lungs:The lungs are clear Cardiac silhouette:The cardiomediastinal silhouette appears within normal limits. Pulmonary vasculature:Normal Pleural spaces:No pleural effusion or pneumothorax is demonstrated. Upper abdomen:No abnormality seen. Osseous structures: No acute osseous abnormality. Additional findings:None. IMPRESSION: No acute cardiopulmonary abnormality.
[2019-03-24 08:14] LABS: Bilirubin Negative (Negative); Blood, Urine 1+ (Negative); Clarity Turbid (Clear); Glucose, Urine (Dipstick) Greater than 1000 mg/dL (Negative); Leukocyte 250 Leu/uL (Negative); Nitrite Negative (Negative); Protein, Urine (Dipstick) 600 mg/dL (Neg-Trace); Urobilinogen Normal mg/dL (Less than 2)
[2019-03-24 08:18] LABS: RBC/HPF 0-3 HPF (0-3); Squamous Epithelial 0-3 HPF (0-3); WBC/HPF Greater than 50 HPF (0-3)
[2019-03-24 08:28] LABS: Bacteria/HPF 4+ HPF (None Seen)
[2019-03-24] MEDS ORDERED: cefTRIAXone\\ROCEPHIN 1 GM VIAL ONE (08:35)
[2019-03-24] MEDS ORDERED: HYDROcodone/Acetaminophen 10/325 mg Tablet ONE (08:35)
--- NOTE | 2019-03-24 09:42 | PDOC.FPRHP ---
- History of Present Illness Chief Complaint: SOB, CP History of Present Illness: Ms Goldman is a 43yo female with pmh of CVA October 2018, [place] x2 2016, CHF, IDDMII, HTN presenting with CP and SOB this morning. Reports started having SOB followed by chest tightness. Both symptoms have resolved. CP did not radiate, no diaphoresis, n/v. Pain not worse with exertion. Pt ambulates with wheelchair and walker. She has right sided weakness 2/2 CVA October 2018. Was receiving home PT /OT services for 2 wks after discharge but insurance stopped covering visits and she has not had formal therapy since. Her daughter tries to help her with the exercise but she mostly sits and sleeps in the recliner causing her chronic back pain to worsen. This is another reason she came in today was worsening back pain. She has been on pain meds in the past but is only taking Tylenol and Gabapentin for pain currently. In regards to her heart she sees Dr Ma. Her last Echo was 11/04/18 showing dystolic dysfunction. Heart Cath 03/2016 showed severe multivessel disease with recommended medical management. Reports glucose is usually fairly well controlled in the 100's but the last few days has been running high in 300's. UTI on UA but denies dysuria, hematuria, urine odor. Her family consumer scientist is Dr Hartley ED Course: Dr Hutton - Allergies/Adverse Reactions Allergies Allergy/AdvReac Type Severity Reaction Status Date / Time ciprofloxacin Allergy Hives Verified 03/24/19 10:30 lisinopril Allergy Anaphylaxis Verified 03/24/19 10:30 - Home Medications Medication Instructions Recorded Confirmed Type Amlodipine [Norvasc] 10 mg PO DAILY #30 tab 05/10/18 03/24/19 Rx Insulin Aspart [NovoLOG FlexPen] 1 - 12 units SC TID-WM 11/03/18 03/24/19 History Aspirin [Ecotrin Low Strength] 81 mg PO DAILY tab 11/08/18 03/24/19 Rx Atorvastatin Calcium [Lipitor] 80 mg PO HS tab 11/08/18 03/24/19 Rx Carvedilol [Coreg] 25 mg PO BID-WM tab 11/08/18 03/24/19 Rx hydrALAZINE [Apresoline] 50 mg PO TID tab 11/08/18 03/24/19 Rx Fish Oil 1,000 mg PO DAILY #30 cap 02/05/19 03/24/19 Rx Esomeprazole Magnesium [Nexium 1 tab PO DAILY 03/24/19 03/24/19 History 24Hr] Acetaminophen [Tylenol Regular 650 mg PO Q4H PRN tab 03/26/19 Rx Strength] Amitriptyline HCl [Elavil] 25 mg PO HS #30 tab 03/26/19 Rx Chlorthalidone [Hygroton] 25 mg PO DAILY #30 tab 03/26/19 Rx Gabapentin [Neurontin] 200 mg PO QID #120 cap 03/26/19 Rx HumaLOG [HumaLOG Vial] 16 units SC TID-WM vial 03/26/19 Rx Insulin Glargine [Lantus Vial] 85 units SC HS #3 vial 03/26/19 Rx Insulin Glargine [Lantus Vial] 85 units SC QAM #3 vial 03/26/19 Rx Methocarbamol [Robaxin] 500 mg PO QIDPRN PRN #30 tab 03/26/19 Rx - History PMHx: CVA October 2018 with residual R sided weakness, [place] x2 2015, CAD, DMII on insulin, GERD, HTN, RLS, Chronic back pain, hx of osteo with MRSA, CKD III PSHx: C/S x2, Back surgery, tonsillectomy, tubal ligation FHx: Noncontributory Social: Former smoker, >20yrs - quit 6mo ago. Occasional alcohol use. Denies drug use. - Review of Systems General: reports: fatigue. denies: fever/chills Eyes: denies: eye pain, vision changes ENT: denies: nasal congestion, rhinorrhea Respiratory: reports: shortness of breath. denies: cough, congestion Cardiovascular: reports: chest pain. denies: palpitation, edema Gastrointestinal: reports: diarrhea. denies: nausea, vomiting, constipation, abdominal pain Genitourinary: denies: dysuria, other (hematuria, odor) Skin: denies: rashes, lesions Musculoskeletal: reports: pain, tenderness, other (back pain) Neurological: denies: syncope, weakness - Vital signs BP: 186/106 HR: 76 RR: 17 Tmax: 98.8 Pox: 99% on RA Wt: 100kg - Physical Exam Constitutional: NAD, awake, alert and oriented, well developed HEENT: normocephalic and atraumatic, grossly normal hearing, MMM Neck: supple, trachea midline Heart: RRR, no murmurs/rubs/gallops Lungs: CTAB, no respiratory distress, no wheezing Abdomen: soft, bowel sounds present, other (suprapubic tenderness. No rebound or rigidity) Musculoskeletal: normal structure, normal tone Neurological: other (right sided weakness and facial droop. Able to raise arm against gravity) Skin: good turgor, other (right foot ulcer, healed) Heme/Lymphatic: no unusual bruising or bleeding Psychiatric: normal mood and affect, good judgment and insight, intact recent and remote memory -Psychiatric: A&O x3 FMR H&P: Results - Labs Result Diagrams: 03/25/19 06:25 03/26/19 07:16 Lab results: WBC 10.6 thou/uL (4.8-10.8) 03/24/19 07:31 Hgb 11.6 g/dL (12.0-16.0) L 03/24/19 07:31 Hct 33.4 % (36.0-47.0) L 03/24/19 07:31 MCV 84.8 fL (78.0-98.0) 03/24/19 07:31 Plt Count 253 thou/uL (130-400) 03/24/19 07:31 Neutrophils % 58.2 % (42.0-75.0) 03/24/19 07:31 Sodium 131 mmol/L (136-145) L 03/24/19 07:30 Potassium 4.0 mmol/L (3.5-5.1) 03/24/19 07:30 Chloride 102 mmol/L (98-107) 03/24/19 07:30 Carbon Dioxide 21 mmol/L (22-29) L 03/24/19 07:30 BUN 23 mg/dL (7.0-18.7) H 03/24/19 07:30 Creatinine 2.46 mg/dL (0.6-1.1) H 03/24/19 07:30 Glucose 355 mg/dL (70-105) H 03/24/19 07:30 Calcium 7.9 mg/dL (7.8-10.44) 03/24/19 07:30 Total Bilirubin 0.2 mg/dL (0.2-1.2) 03/24/19 07:30 AST 21 U/L (5-34) 03/24/19 07:30 ALT 22 U/L (8-55) 03/24/19 07:30 Alkaline Phosphatase 131 U/L (40-150) 03/24/19 07:30 Creatine Kinase 512 U/L (29-168) H 03/24/19 07:30 B-Natriuretic Peptide 61.7 pg/mL (0-100) 03/24/19 07:30 Serum Total Protein 6.5 g/dL (6.0-8.3) 03/24/19 07:30 Albumin 3.5 g/dL (3.5-5.0) 03/24/19 07:30 Lipase 146 U/L (8-78) H 03/24/19 07:30 Urine Ketones Negative mg/dL (Negative) 03/24/19 07:43 Urine Blood 1+ (Negative) A 03/24/19 07:43 Urine Nitrite Negative (Negative) 03/24/19 07:43 Ur Leukocyte Esterase 250 Jacinto/uL (Negative) A 03/24/19 07:43 Urine RBC 0-3 HPF (0-3) 03/24/19 07:43 Urine WBC Greater than 50 HPF (0-3) A 03/24/19 07:43 Ur Squamous Epith Cells 0-3 HPF (0-3) 03/24/19 07:43 Urine Bacteria 4+ HPF (None Seen) A 03/24/19 07:43 - EKG Interpretation EKG: normal sinus rhythm, Rate (beats per minute): 82, Conduction normal, ST segments normal, T waves normal, [place] normal, Moderate voltage criteria for LVH , may be normal variant inferior infarct, age undetermined. - Radiology Interpretation Chest x-ray Status: report reviewed by me Additional comment: No acute abnormalities FMR H&P: A/P - Plan Ms Goldman is a 43yo female with pmh of CVA October 2018, [place] x2 2015, CHF, IDDMII, HTN presenting with atypical chest pain and elevated BP Atypical chest pain - EKG unchanged from prior, no signs of acute ischemia - Initial troponin negative, continue to trend - Echo with dystolic dysfunction 11/04/18 - Heart cath 03/2016: severe multivessel disease, medical management recommended - Continue ASA, statin daily - Admit to tele HTN - Resume home meds Deconditioning - PT/OT consulted - CM consulted to see if resources available to resume home health PT/OT Chronic back pain - Recent increase in pain likely 2/2 decreased activity - Tylenol #3 PRN, has worked in the past - PT/OT as above UTI - Dx on UA, urine cx pending - Ceftriaxone in ED - Transition to PO antibiotics CKDIII - Cr stable IDDMII - Glucose 355, likely high due to UTI - Continue home insulin regimen and metformin - CC diet, hypoglycemic protocol - ACHS accuchecks HFpEF - Does not appear to be volume overloaded - Fluid restriction, daily wts, strict I&O's - Continue statin, ASA, BB CAD - Manage as above Hx of tobacco abuse DVT ppx: SCDs Code Status: FULL Renetta Bah MD PGY-2 Pt seen and evaluated with Dr Palomares who agrees with above documentation and plan PCP: Dr Hutton FMR H&P: Upper Level - Plan Date/Time: 03/24/19 5615 I, [], have evaluated this patient and agree with findings/plan as outlined by hr intern resident. Pertinent changes/additions are listed here. Addendum - Attending - Attending Attestation Date/Time: 03/24/19 0671 I personally evaluated the patient and discussed the management with Dr. Bah I agree with the History, Examination, Assessment and Plan documented above with any addition or exceptions noted below. 43 yo female with hx of CAD (occluded RCA) and CVA (RAA) presents with chest pain. Patient presents today via EMS for evaluation of progressive CP. Start this AM. Lasted 1 to 2 hours. Has resolved with nitro. Without pain currently. VS, labs, imaging reviewed. Agree with PE as documented by resident. 1. Atypical CP with underlying CAD: Rule out ACS. Trend trops. Currently negative. Trend EKG prn. Place on tele. Occurred lump receiver but patient not awakened. Unsure if unstable angina due to progressive nature as described by patient that has been progressing in frequency. Due to risk, cards consulted. Continue ASA, BB, statin, nitro. 2. CAD: RCA occluded. Last C 2015. Cards to be consulted. Last stress 2017. 3. HFpEF: ECHO reviewed. BNP negative. 4. CKD IV: At baseline. Oddly trop negative. Continue to monitor. Nephro as needed. 5. hx of CVA: Stable. 6. HTN urgency: Severe range. Treat with IV medications. Adjust oral medications. Likely add long-acting nitro. 7. DM: Increase insulin. Add SSI. 8. HLD: Statin. Consider addition of ezetimibe if not at goal. 9. Chronic back pain: Needs pain management outpat. Admit to tele obs. Cards consulted. Stress vs cath. Jazmyn
[2019-03-24 10:10] VITALS: BMI 31.4
[2019-03-24] MEDS ORDERED: Sodium Chloride 0.9% 1,000 ML IV SCH (10:15)
[2019-03-24] MEDS ORDERED: Ondansetron PF 4 MG/2 ML Vial IVP PRN (10:15)
[2019-03-24] MEDS ORDERED: Ondansetron ODT 4 MG TAB SL PRN (10:15)
[2019-03-24] MEDS ORDERED: hydrALAZINE 20 MG/ML VIAL SLOW IVP PRN (10:17)
[2019-03-24] MEDS ORDERED: HumaLOG 300 UNITS/3 ML VIAL SC PRN (10:44)
[2019-03-24] MEDS ORDERED: Ondansetron ODT 4 MG TAB PO PRN (10:44)
[2019-03-24] MEDS ORDERED: Dextrose 5% in Water 1,000 ML IV PRN (10:44)
[2019-03-24] MEDS ORDERED: Dextrose 50% Abboject 50 ML SYRINGE SLOW IVP PRN (10:44)
[2019-03-24] MEDS ORDERED: Calcium Carbonate 500 MG ChewTAB PO PRN (10:44)
[2019-03-24] MEDS ORDERED: Acetaminophen 325 MG TAB PO PRN (10:44)
[2019-03-24 11:03] LABS: Troponin I Less than 0.010 ng/mL (< 0.028)
[2019-03-24] MEDS ORDERED: Acetaminophen/Codeine 30-300mg Tablet PO PRN (11:05)
[2019-03-24] MEDS: HumaLOG 300 UNITS/3 ML VIAL SC SCH ×2 (11:55→16:23)
[2019-03-24] MEDS: Gabapentin 300 MG CAP PO SCH ×2 (12:02→19:40)
[2019-03-24] MEDS: tiZANidine HCl 4 MG TAB PO SCH ×2 (12:03→19:39)
[2019-03-24] MEDS ORDERED: Nitroglycerin 2% Ointment 1 INCH/1 GM Packet TOP SCH (14:00)
[2019-03-24 14:15] LABS: Troponin I Less than 0.010 ng/mL (< 0.028)
[2019-03-24] MEDS: hydrALAZINE 25 MG TAB PO SCH ×2 (15:43→19:39)
[2019-03-24] MEDS: Carvedilol 25 MG TAB PO SCH (16:23)
[2019-03-24] MEDS: Acetaminophen/Codeine 30-300mg Tablet PO PRN (19:40)
[2019-03-24] MEDS: Hydrochlorothiazide 25 MG TAB PO SCH (19:41)
[2019-03-24] MEDS: Atorvastatin Calcium 40 MG TAB PO SCH (19:41)
[2019-03-24] MEDS ORDERED: Cefdinir 300 MG CAP PO SCH (21:00)
[2019-03-24] MEDS: Insulin Glargine 85 UNITS in Pre-Filled Syringe 1 EACH SC SCH (21:05)
[2019-03-25] MEDS: Acetaminophen/Codeine 30-300mg Tablet PO PRN ×2 (01:18→07:40)
[2019-03-25] MEDS ORDERED: hydrALAZINE 20 MG/ML VIAL SLOW IVP SCH (04:51)
[2019-03-25] MEDS ORDERED: Dextrose 50% Abboject 50 ML SYRINGE SLOW IVP PRN (06:09)
[2019-03-25] MEDS ORDERED: Dextrose 5% in Water 1,000 ML IV PRN (06:09)
[2019-03-25] MEDS ORDERED: HumaLOG 300 UNITS/3 ML VIAL SC PRN (06:09)
--- NOTE | 2019-03-25 06:11 | PDOC.FM ---
- Subjective Subjective: Patient remained hypertensive overnight requiring an additional 10mg IV of hydralazine at 0500 today. Remained asymptomatic other than a headache but no focal deficits or mental status changes. Reported 8/10 headache and an aching chest pain this AM that was reproducible on exam. No associated nausea or SOB. - Objective MAR Reviewed: Yes Vital Signs & Weight: Vital Signs (12 hours) Temp Pulse Resp BP BP Pulse Ox 03/25/19 05:00 76 189/88 H 03/25/19 04:15 97.6 F 76 12 188/89 H 100 03/24/19 23:00 98.1 F 65 17 179/86 H 98 03/24/19 19:39 67 186/88 H 03/24/19 19:20 97.4 F L 67 13 186/88 H 98 Weight Weight 101.469 kg I&O: 03/23/19 03/24/19 03/25/19 06:59 06:59 06:59 Intake Total 480 Balance 480 Result Diagrams: 03/25/19 06:25 03/25/19 06:25 Phys Exam - Physical Examination Constitutional: NAD HEENT: moist MMs Neck: supple, full ROM Respiratory: no wheezing, no rales, no rhonchi, clear to auscultation bilateral Cardiovascular: RRR, no significant murmur Musculoskeletal: no edema, pulses present Neurological: non-focal, moves all 4 limbs Psychiatric: normal affect, A&O x 3 Skin: no rash, normal turgor Dx/Plan (1) GWEN (acute kidney injury) Code(s): N17.9 - ACUTE KIDNEY FAILURE, UNSPECIFIED Status: Acute (2) GERD (gastroesophageal reflux disease) Code(s): K21.9 - GASTRO-ESOPHAGEAL REFLUX DISEASE WITHOUT ESOPHAGITIS Status: Acute (3) History of stroke Code(s): Z86.73 - PRSNL HX OF TIA (TIA), AND CEREB INFRC W/O RESID DEFICITS Status: Acute (4) Hypercholesteremia Code(s): E78.00 - PURE HYPERCHOLESTEROLEMIA, UNSPECIFIED Status: Acute (5) Hypertensive urgency Code(s): I16.0 - HYPERTENSIVE URGENCY Status: Acute (6) CAD (coronary artery disease) Code(s): I25.10 - ATHSCL HEART DISEASE OF [place] CORONARY ARTERY W/O ANG PCTRS Status: Chronic Qualifiers: (7) DM type 2 (diabetes mellitus, type 2) Status: Chronic Qualifiers: (8) Obesity Code(s): E66.9 - OBESITY, UNSPECIFIED Status: Chronic (9) Chronic renal disease, stage IV Code(s): N18.4 - CHRONIC KIDNEY DISEASE, STAGE 4 (SEVERE) Status: Acute - Plan Plan: Ms Goldman is a 43yo female with pmh of CVA October 2018, [place] x2 2016, CHF, IDDMII, & HTN presenting with atypical chest pain and elevated BP Atypical chest pain, improved - EKG unchanged from prior with no signs of acute ischemia on admission. No recurrent chest pain since. - Troponins negative x3. - Echo with diastolic dysfunction done on 11/04/18 - Heart cath 03/2016: severe multivessel disease, medical management recommended - Continue ASA & statin daily - Cardiology consulted yesterday. To undergo stress test today per their recs. HTN - Patient's BP remained extremely uncontrolled since admission even after resuming home meds. Will switch HCTZ to chlorthalidone today and consider also adding a long acting nitrate for improved BP control. Will titrate meds PRN based on BP today. Deconditioning - PT/OT consulted - CM consulted to see if resources available to resume home health PT/OT Chronic back pain - Recent increase in pain likely 2/2 decreased activity - Tramadol & will resume home gabapentin but will renally dose. Will also try roboxin rather than zanaflex & evaluate for pain & mobility improvement. - PT/OT on board UTI - Dx on UA, urine cx pending - Ceftriaxone in ED - Will continue PO cefdinir pending sensitivities. Prelim Cx showing E. coli. CKDIV - Cr stable per chart review with eGFR of 21 on admission. Will continue to monitor & renally dose meds PRN. Anemia of chronic disease - Hgb on admission within baseline range at 11.6. Will continue to monitor & transfuse PRN. IDDMII - Glucose has remained in 200-300 range since admission. - Continue home insulin regimen but will need to hold metformin given CKDIV. - CC diet, hypoglycemic protocol - ACHS accuchecks HFpEF - Does not appear to be volume overloaded or in acute exacerbation - Fluid restriction, daily wts, strict I&O's - Continue statin, ASA, BB CAD - Manage as above Hx of tobacco abuse - aware Dispo: Will continue to BPs closely & titrate meds PRN. d/c status pending cardiology recs. IVFs: SL Abx: Cefdinir GI PPx: protonix DVT ppx: renally dosed lovenox Code Status: FULL PCP: Pavel Portilloum - Attending - Attending Attestation Date/Time: 03/25/19 9691 I personally evaluated the patient and discussed the management with Dr. Uriarte. I agree with the History, Examination, Assessment and Plan documented above with any addition or exceptions noted below. Patient here for CP r/o. She is undergoing stress testing today. Cardiology on board. Need improved BP control. Further recs per Cardiology as they are familiar with her.
--- NOTE | 2019-03-25 06:18 | PDOC.CPN ---
- Subjective Date: 03/25/19 Time: 13:41 Interval history: No current complaints - Objective Allergies/Adverse Reactions: Allergies Allergy/AdvReac Type Severity Reaction Status Date / Time ciprofloxacin Allergy Hives Verified 03/24/19 10:30 lisinopril Allergy Anaphylaxis Verified 03/24/19 10:30 Visit Medications: Current Medications Acetaminophen (Tylenol) 650 mg PO Q4H PRN PRN Reason: Headache/Fever/Mild Pain (1-3) Acetaminophen/Codeine Phosphate (Tylenol #3) 1 tab PO Q6H PRN PRN Reason: Moderate Pain (4-6) Acetaminophen/Codeine Phosphate (Tylenol #3) 2 tab PO Q6H PRN PRN Reason: Severe Pain (7-10) Last Admin: 03/25/19 01:18 Dose: 2 tab Amlodipine Besylate (Norvasc) 10 mg PO DAILY [facility] Aspirin (Ecotrin) 162 mg PO DAILY [facility] Atorvastatin Calcium (Lipitor) 80 mg PO [facility] Last Admin: 03/24/19 19:41 Dose: 80 mg Calcium Carbonate (Tums) 1,000 mg PO Q4H PRN PRN Reason: Heartburn or Indigestion Carvedilol (Coreg) 25 mg PO BID-[facility] Last Admin: 03/24/19 16:23 Dose: 25 mg Cefdinir (Omnicef) 300 mg PO BID [facility] Dextrose/Water (Dextrose 50%) 25 gm SLOW IVP PRN PRN PRN Reason: Hypoglycemia Enoxaparin Sodium (Lovenox) 30 mg SC 0900 [facility] Fish Oil (Fish Oil) 1,000 mg PO DAILY [facility] Gabapentin (Neurontin) 300 mg PO TID [facility] Last Admin: 03/24/19 19:40 Dose: 300 mg Glucagon (Glucagon) 1 mg IM PRN PRN PRN Reason: Hypoglycemia Hydralazine HCl (Apresoline) 10 mg SLOW IVP NOW [facility] Stop: 03/25/19 07:00 Last Admin: 03/25/19 05:00 Dose: 10 mg Hydralazine HCl (Apresoline) 50 mg PO QID [facility] Hydralazine HCl (Apresoline) 50 mg PO 0700 [facility] Stop: 03/25/19 09:00 Hydrochlorothiazide (Hydrochlorothiazide) 25 mg PO BID [facility] Last Admin: 03/24/19 19:41 Dose: 25 mg Insulin Glargine 85 units/ (Miscellaneous Medication) 0.85 mls @ 0 mls/hr SC HS [facility] Last Admin: 03/24/19 21:05 Dose: 0.85 mls Insulin Glargine 85 units/ (Miscellaneous Medication) 0.85 mls @ 0 mls/hr SC QAM [facility] Dextrose/Water (D5w) 1,000 mls @ 0 mls/hr IV .Q0M PRN PRN Reason: Hypoglycemia Insulin Human Lispro (Humalog) 16 units SC TID-[facility] Last Admin: 03/24/19 16:23 Dose: 16 unit Insulin Human Lispro (Humalog) 0 units SC .AGGRESSIVE SLIDING PRN PRN Reason: Aggressive Correctional Scale Insulin Human Lispro (Humalog) 0 units SC .BEDTIME SLIDING SC PRN PRN Reason: Bedtime Correctional Scale Ondansetron HCl (Zofran Odt) 4 mg PO Q6H PRN PRN Reason: Nausea/Vomiting Pantoprazole Sodium (Protonix) 40 mg PO DAILY [facility] Tizanidine HCl (Zanaflex) 4 mg PO TID [facility] Last Admin: 03/24/19 19:39 Dose: 4 mg Vital Signs & Weight: Vital Signs Temp Pulse Resp BP BP Pulse Ox 03/25/19 05:00 76 189/88 H 03/25/19 04:15 97.6 F 76 12 188/89 H 100 03/24/19 23:00 98.1 F 65 17 179/86 H 98 03/24/19 19:39 67 186/88 H 03/24/19 19:20 97.4 F L 67 13 186/88 H 98 Weight 223 lb 11.2 oz - Physical Exam General: alert & oriented x3 Neck: supple neck Cardiac: regular rate and rhythm Lungs: clear to auscultation Neuro: grossly intact Abdomen: unremarkable Skin: clear - Labs Result Diagrams: 03/25/19 06:25 03/25/19 06:25 Troponin/CKMB Troponin I Less than 0.010 ng/mL (< 0.028) 03/24/19 13:39 - Assessment/Plan Assessment/Plan: CP CAD RI Recent echo with normal EF Recommend CL study to assess for ischemia Previously known RCA occlusion ([id number]) Recommend conservative treatment unless scan felt to be high risk given RI
[2019-03-25 06:36] LABS: #Basophils 0.1 thou/uL (0.0-0.2); #Eosinphils 0.2 thou/uL (0.0-0.7); #Lymphocytes 2.8 thou/uL (1.20-3.40); #Monocytes 0.5 thou/uL (0.11-0.59); #Neutrophils 6.1 thou/uL (1.40-6.50); %Eosinophils 2.2 % (0.0-10.0); %Lymphocytes 29.1 % (21.0-51.0); %Monocytes 4.9 % (0.0-10.0); %Neutrophils 62.8 % (42.0-75.0); Hemoglobin 13.3 g/dL (12.0-16.0); Mean Corpuscular Hemoglobin 29.5 pg (27.0-31.0); Mean Corpuscular Volume 84.1 fL (78.0-98.0); Mean Platelet Volume 8.9 fL (7.4-10.4); Platelet Count 178 thou/uL (130-400); RBC Distribution Width 12.2 % (11.5-14.5); Red Blood Cell (RBC) Count 4.52 mill/uL (4.20-5.40); White Blood Cell (WBC) Count 9.7 thou/uL (4.8-10.8)
[2019-03-25 06:46] LABS: Anion Gap 16 mmol/L (10-20); BUN (Urea Nitrogen) 22 mg/dL (7.0-18.7); Calc. Creatinine Clearance 51 mL/min (70-130); Calcium 8.8 mg/dL (7.8-10.44); Carbon Dioxide 17 mmol/L (22-29); Chloride 103 mmol/L (98-107); Estimated GFR-MDRD 24; Glucose 187 mg/dL (70-105); Potassium 4.1 mmol/L (3.5-5.1); Sodium 132 mmol/L (136-145)
[2019-03-25] MEDS ORDERED: hydrALAZINE 25 MG TAB PO SCH ×5 (07:00→13:00)
--- NOTE | 2019-03-25 08:17 | CON ---
DATE OF CONSULTATION: HISTORY OF PRESENT ILLNESS: Kiesha Goldman is a 43-year-old white female who has been evaluated by Dr. Ma in the past. In March 2016, she underwent cardiac catheterization. She had less than 50% stenosis in the LAD, 40% to 50% mid circumflex stenosis, 50% to 60% stenosis in the 2nd obtuse marginal. The right coronary artery was very small with occlusion in the proximal region with bridging collaterals present. It was felt best to treat her medically. She now is admitted with chest discomfort. She describes this as a sharp pain on the left side of her chest. This would hurt for 1 minute, resolve in 2 to 3 minutes and then again hurt for another minute. She had this sequence over approximately 1 hour. She denied any pleuritic component to the pain. She also complains of a pain over her left shoulder with exquisite tenderness where it looks as if she has been picking at a sore area. She states that this is a different pain which she feels in her chest. PAST MEDICAL HISTORY: Coronary artery disease, diabetes mellitus, chronic kidney disease, hypertension, obesity, hypertriglyceridemia, low back pain. In October 2018, she had a CVA in the distribution of the right anterior internal carotid artery. PAST SURGICAL HISTORY: Back surgery, tubal ligation, tonsillectomy. ALLERGIES: SURESH INHIBITOR, CIPRO. CURRENT MEDICATIONS: 1. Amlodipine 10 mg daily. 2. Aspirin 81 daily. 3. Atorvastatin 80 at bedtime. 4. Carvedilol 25 mg b.i.d. 5. Fish oil 1000 daily. 6. Gabapentin 300 mg t.i.d. 7. Apresoline 50 t.i.d. 8. Hydrochlorothiazide 25 daily. 9. Insulin. 10. Tizanidine 4 mg t.i.d. SOCIAL HISTORY: She does not smoke or drink. She did smoke, but stopped approximately 6 months ago. REVIEW OF SYSTEMS: Otherwise unremarkable. PHYSICAL EXAMINATION: VITAL SIGNS: Blood pressure 168/81, pulse of 68. HEENT: PERRL. NECK: Supple. CHEST: Clear. CARDIAC: S1 and S2 normal without any S3, S4, or murmurs. ABDOMEN: Normal bowel sounds without tenderness. The abdomen is obese. MUSCULOSKELETAL: Reveals palpable tenderness over the left shoulder. NEUROLOGICAL: Reveals mild right-sided facial droop. SKIN: Warm and dry. LABORATORY DATA: EKG reveals normal sinus rhythm with inferior infarction with Q-waves in lead III and aVF. No acute changes. Cardiac enzymes are normal. Hemoglobin 10.6, hematocrit 33.4, white count 10,600, and platelets 253,000. Sodium 131, potassium 4.0, chloride 102, carbon dioxide 21, BUN 23, creatinine 2.46, glucose 355. CK is elevated at 512. Troponin I is normal. IMPRESSION: 1. Atypical chest discomfort with normal troponin I. 2. Coronary artery disease with most significant lesion being totally occluded right coronary artery that fills via bridging collaterals. It was felt best to treat her medically. 3. Hypertension. 4. Diabetes. 5. History of cerebrovascular accident. 6. Hypercholesterolemia. 7. Former smoker. 8. Chronic back pain. 9. Probable urinary tract infection. 10. Chronic kidney disease. RECOMMENDATIONS: Ms. Goldman had a Cardiolite stress test performed in December 2017 which revealed scarring of the inferior wall, similar to previous studies, which corresponds with totally occluded right coronary artery. Her symptoms seem atypical for cardiac pain. Also, I would be hesitant to consider catheterization with her renal insufficiency. She will be further evaluated by Dr. Ma. Job ID: [id number] [facility]
[2019-03-25] MEDS ORDERED: Nitroglycerin 0.4 MG TAB (25 Tab Bottle) ONE (08:39)
[2019-03-25] MEDS ORDERED: Regadenoson 0.4 MG/5 ML SYRINGE ONE (08:42)
[2019-03-25] MEDS ORDERED: Nitroglycerin 0.4 MG TAB (25 Tab Bottle) SL PRN (08:42)
[2019-03-25] MEDS: HumaLOG 300 UNITS/3 ML VIAL SC SCH ×3 (08:47→18:15)
[2019-03-25] MEDS: Amlodipine 10 MG TAB PO SCH (08:52)
[2019-03-25] MEDS: tiZANidine HCl 4 MG TAB PO SCH (08:52)
[2019-03-25] MEDS: Hydrochlorothiazide 25 MG TAB PO SCH (08:52)
[2019-03-25] MEDS: Aspirin 81 mg Enteric Coated Tablet PO SCH (08:52)
[2019-03-25] MEDS: Gabapentin 300 MG CAP PO SCH (08:52)
[2019-03-25] MEDS: Fish Oil 1,000 MG CAP PO SCH (08:52)
[2019-03-25] MEDS: Cefdinir 300 MG CAP PO SCH ×2 (08:52→20:46)
[2019-03-25] MEDS: Enoxaparin Sodium 30 MG/0.3 ML SYRINGE SC SCH (08:58)
[2019-03-25] MEDS ORDERED: Acetaminophen 500 MG TAB PO SCH (09:00)
[2019-03-25] MEDS: Carvedilol 25 MG TAB PO SCH ×3 (09:01→18:15)
[2019-03-25] MEDS: Insulin Glargine 85 UNITS in Pre-Filled Syringe 1 EACH SC SCH ×2 (09:31→20:45)
[2019-03-25] MEDS: traMADol HCl 50 MG TAB PO PRN ×2 (11:42→18:19)
[2019-03-25] MEDS: Gabapentin 100 MG CAP PO SCH ×3 (13:49→20:47)
[2019-03-25] MEDS: hydrALAZINE 25 MG TAB PO SCH ×2 (13:50→20:47)
[2019-03-25] MEDS: Methocarbamol 500 MG TAB PO PRN (19:36)
[2019-03-25] MEDS: Atorvastatin Calcium 40 MG TAB PO SCH (20:47)
[2019-03-25] MEDS ORDERED: Chlorthalidone 25 MG TAB PO SCH (21:00)
[2019-03-25] MEDS ORDERED: Amitriptyline HCl 25 MG TAB PO SCH (21:00)
[2019-03-26] MEDS: traMADol HCl 50 MG TAB PO PRN (04:49)
[2019-03-26] MEDS: Methocarbamol 500 MG TAB PO PRN (04:52)
[2019-03-26 07:47] LABS: Anion Gap 13 mmol/L (10-20); BUN (Urea Nitrogen) 27 mg/dL (7.0-18.7); Calc. Creatinine Clearance 43 mL/min (70-130); Calcium 8.4 mg/dL (7.8-10.44); Carbon Dioxide 22 mmol/L (22-29); Chloride 100 mmol/L (98-107); Estimated GFR-MDRD 19; Glucose 240 mg/dL (70-105); Sodium 131 mmol/L (136-145)
--- NOTE | 2019-03-26 08:01 | PDOC.FM ---
- Subjective Subjective: NAEO. BP much better controlled after switching to chlorthalidone yesterday. Patient reports marked improvement in her headache & denies chest pain this AM. Does endorse back pain, especially when she moves around. - Objective MAR Reviewed: Yes Vital Signs & Weight: Vital Signs (12 hours) Temp Pulse Resp BP BP Pulse Ox 03/26/19 07:47 98.7 F 74 14 164/79 H 94 L 03/26/19 04:23 98.8 F 72 13 158/75 H 96 03/26/19 00:00 97.2 F L 66 18 157/86 H 99 03/25/19 20:47 63 141/79 H Weight Weight 101.65 kg I&O: 03/25/19 03/26/19 03/27/19 06:59 06:59 06:59 Intake Total 480 1800 Output Total 2400 Balance 480 -600 Result Diagrams: 03/25/19 06:25 03/26/19 07:16 Phys Exam - Physical Examination Constitutional: NAD HEENT: moist MMs Neck: supple, full ROM Respiratory: no wheezing, no rales, no rhonchi, clear to auscultation bilateral Cardiovascular: RRR, no significant murmur Neurological: non-focal, moves all 4 limbs Psychiatric: normal affect, A&O x 3 Skin: no rash Dx/Plan (1) GWEN (acute kidney injury) Code(s): N17.9 - ACUTE KIDNEY FAILURE, UNSPECIFIED Status: Acute (2) GERD (gastroesophageal reflux disease) Code(s): K21.9 - GASTRO-ESOPHAGEAL REFLUX DISEASE WITHOUT ESOPHAGITIS Status: Acute (3) History of stroke Code(s): Z86.73 - PRSNL HX OF TIA (TIA), AND CEREB INFRC W/O RESID DEFICITS Status: Acute (4) Hypercholesteremia Code(s): E78.00 - PURE HYPERCHOLESTEROLEMIA, UNSPECIFIED Status: Acute (5) Hypertensive urgency Code(s): I16.0 - HYPERTENSIVE URGENCY Status: Acute (6) CAD (coronary artery disease) Code(s): I25.10 - ATHSCL HEART DISEASE OF [place] CORONARY ARTERY W/O ANG PCTRS Status: Chronic Qualifiers: (7) DM type 2 (diabetes mellitus, type 2) Status: Chronic Qualifiers: (8) Obesity Code(s): E66.9 - OBESITY, UNSPECIFIED Status: Chronic (9) Chronic renal disease, stage IV Code(s): N18.4 - CHRONIC KIDNEY DISEASE, STAGE 4 (SEVERE) Status: Acute - Plan Plan: Ms Goldman is a 43yo female with pmh of CVA October 2018, [place] x2 2015, CHF, IDDMII, & HTN presenting with atypical chest pain and elevated BP. Atypical chest pain, improved - EKG unchanged from prior with no signs of acute ischemia on admission. No recurrent chest pain since. - Troponins negative x3. - Echo with diastolic dysfunction done on 11/04/18 - Heart cath 03/2016: severe multivessel disease, medical management recommended - Continue ASA & statin daily - Cardiology consulted yesterday. To undergo second half of stress test today per their recs. HTN - Patient's BP remained extremely uncontrolled since admission even after resuming home meds. Will continue chlorthalidone today but consider also adding a long acting nitrate for improved BP control as SBP still in the 150-160s in last several checks. Will titrate meds PRN based on BP today. Deconditioning - PT/OT consulted - CM consulted to see if resources available to resume home health PT/OT Chronic back pain - Recent increase in pain likely 2/2 decreased activity - Tramadol & will resume home gabapentin but will renally dose. Will also continue robaxin & amitriptyline to help with headaches and pain. - PT/OT on board E coli UTI - Dx on UA & Cx grew E coli that is murphy-sensitive. - Will 1x dose of PO fosfomycin today for adequate treatment. CKDIV - Cr slightly higher than yesterday at 2.66 this AM w/ an eGFR of 19 but within baseline range. Suspect may partially be 2/2 improved BP control yesterday. Will continue to monitor & renally dose meds PRN. Anemia of chronic disease - Hgb on admission within baseline range at 11.6. Will continue to monitor & transfuse PRN. IDDMII - Glucose has remained elevated since admission. - Continue home insulin regimen with possible need to add additional insulin HS to cover improve AM fasting BG levels. Will continue to hold metformin given CKDIV. - CC diet, hypoglycemic protocol - ACHS accuchecks HFpEF - Does not appear to be volume overloaded or in acute exacerbation - Fluid restriction, daily wts, strict I&O's - Continue statin, ASA, BB CAD - Manage as above Hx of tobacco abuse - aware Dispo: Will continue to BPs closely & titrate meds PRN. d/c status pending cardiology recs based on results of stress test. IVFs: SL Abx: fosfomycin GI PPx: protonix DVT ppx: renally dosed lovenox Code Status: FULL PCP: Pavel Addendum - Attending - Attending Attestation Date/Time: 03/26/19 [id number] I personally evaluated the patient and discussed the management with Dr. Bah I agree with the History, Examination, Assessment and Plan documented above with any addition or exceptions noted below. 43 yo female with hx of CAD (occluded RCA) and CVA (RAA) admitted for ACS rule out. No acute events ON. BP improving. No CP since admission. VS, labs, imaging reviewed. Agree with PE as documented by resident. 1. Atypical CP with underlying CAD: No new ischemia. Possible non-cardiac. Stress negative. Follow up with cards outpat. Continue ASA, statin, BB, prn nitro. 2. CAD: RCA occluded. Last [facility] 2016. Cards following. No new ischemia. 3. HFpEF: ECHO reviewed. BNP negative. 4. CKD IV: At baseline. 5. hx of CVA: Stable. 6. HTN urgency: Improved. 7. DM: Continue to adjust control in outpat setting with PCP. 8. HLD: Statin. Consider addition of ezetimibe if not at goal. 9. Chronic back pain: Needs pain management outpat. 10. UTI: Reviewed cx. Switch to PO. Uncomplicated. Ok to d/c to home. ER precautions discussed. Need to follow up with PCP early next week due to risk of uncontrolled BP and glucose. Jazmyn
[2019-03-26] MEDS ORDERED: Chlorthalidone 25 MG TAB PO SCH (09:00)
[2019-03-26] MEDS: hydrALAZINE 25 MG TAB PO SCH (09:33)
[2019-03-26] MEDS: Fish Oil 1,000 MG CAP PO SCH (09:33)
[2019-03-26] MEDS: Cefdinir 300 MG CAP PO SCH (09:33)
[2019-03-26] MEDS: Amlodipine 10 MG TAB PO SCH (09:33)
[2019-03-26] MEDS: Carvedilol 25 MG TAB PO SCH (09:33)
[2019-03-26] MEDS: Aspirin 81 mg Enteric Coated Tablet PO SCH (09:33)
[2019-03-26] MEDS: Insulin Glargine 85 UNITS in Pre-Filled Syringe 1 EACH SC SCH (09:34)
[2019-03-26] MEDS: HumaLOG 300 UNITS/3 ML VIAL SC SCH ×2 (09:34→11:33)
[2019-03-26] MEDS: Enoxaparin Sodium 30 MG/0.3 ML SYRINGE SC SCH (09:34)
[2019-03-26] MEDS ORDERED: Fosfomycin 3 GM/Packet PO SCH (10:00)
--- NOTE | 2019-03-26 10:06 | NM ---
EXAM: Nuclear medicine cardiac SPECT with EF and wall motion: HISTORY: Chest pain, history of coronary artery disease Protocol: Exam was performed using [employer] protocol. The patient is injected with31.9 millicuries of technetium 99m sestamibi intravenously for stress amber ges. The patient is injected with30.6 millicuries of technetium 99 sestamibi intravenously for resting amber ges. Multiple SPECT images are performed in the short axis, vertical long axis, and horizontal long axis. FINDINGS: Evidence for a fixed defect in the posterior inferior wall primarily in the base evidence for infarct . No scan evidence for acute ischemia. TID:1.02 LHR:0.36 EDV:117 mL EF:48% Wall motion:Unremarkable IMPRESSION: No scan evidence for ischemia. Evidence for infarct in the inferior posterior wall, basilar region.
[2019-03-26] MEDS: Gabapentin 100 MG CAP PO SCH (11:17)
[2019-03-26 11:45] VITALS: TEMP 98.1
[2019-03-26] MEDS ORDERED: Insulin Glargine 90 UNITS in Pre-Filled Syringe 1 EACH SC SCH (11:45)
[2019-03-26] MEDS ORDERED: Gabapentin 100 MG CAP PO SCH (13:00)
[2019-03-26 13:20] VITALS: BP 183/93
--- NOTE | 2019-03-26 16:17 | PDOC.CPN ---
- Subjective Date: 03/26/19 Time: 16:15 Interval history: No further complaints of CP, SP or back pain. Recnt stress test with scar only. No ishcemia. EF nromal - Objective Allergies/Adverse Reactions: Allergies Allergy/AdvReac Type Severity Reaction Status Date / Time ciprofloxacin Allergy Hives Verified 03/24/19 10:30 lisinopril Allergy Anaphylaxis Verified 03/24/19 10:30 Vital Signs & Weight: Vital Signs Temp Pulse Pulse Pulse Resp BP BP 03/26/19 11:30 98.1 F 74 20 03/26/19 11:07 74 68 116/73 139/75 03/26/19 09:35 63 183/93 H 03/26/19 09:33 74 03/26/19 07:47 98.7 F 74 14 03/26/19 04:23 98.8 F 72 13 BP Pulse Ox Pulse Ox Pulse Ox 03/26/19 11:30 116/73 96 03/26/19 11:07 96 99 03/26/19 09:35 03/26/19 09:33 03/26/19 07:47 164/79 H 94 L 03/26/19 04:23 158/75 H 96 Weight 224 lb 1.6 oz - Physical Exam General: alert & oriented x3 Neck: supple neck Cardiac: no murmur Lungs: normal exam Neuro: grossly intact Abdomen: unremarkable Skin: clear Musculoskeletal: no pain - Labs Result Diagrams: 03/25/19 06:25 03/26/19 07:16 Troponin/CKMB Troponin I Less than 0.010 ng/mL (< 0.028) 03/24/19 13:39 - Assessment/Plan Assessment/Plan: Atypical CP RI CAD Stress test unchanged. EF nroal Symptoms felt to be non-cardiac No other recommendations FU with PCP
--- NOTE | 2019-03-27 14:05 | DIS ---
DATE OF ADMISSION: 03/24/2019 DATE OF DISCHARGE: 03/26/2019 RESIDENT: uSad Uriarte MD DISCHARGE ATTENDING: Marimar Palomares MD. CONSULTS: Cardiology, Dr. Julito Ma. PROCEDURES: 1. Chest x-ray on 03/24/2019, which showed no acute cardiopulmonary abnormality. 2. Nuclear stress test on 03/25/2019, which showed no scan evidence for ischemia , but evidence for infarct in the inferior posterior wall, basilar region, unchanged from prior stress. EF of 48% and wall motion unremarkable. PRIMARY DIAGNOSES: 1. Chest pain secondary to suspected musculoskeletal strain. 2. E. coli Urinary tract infection. 3. Hypertensive urgency. SECONDARY DIAGNOSES: 1. Insulin-dependent type 2 diabetes mellitus. 2. Heart failure with preserved ejection fraction. 3. Coronary artery disease, s/p [place] x2. 4. Chronic kidney disease, stage 4. 5. Chronic back pain. 6. Hypertension. 7. History of ischemic cerebrovascular accident. 8. History of tobacco abuse. DISCHARGE MEDICATIONS: 1. Norvasc 10 mg daily. 2. NovoLog 1 to 12 units subcu t.i.d. with meals. 3. Aspirin 81 mg p.o. daily. 4. Atorvastatin 80 mg p.o. at bedtime. 5. Coreg 25 mg p.o. b.i.d. 6. Hydralazine 50 mg p.o. t.i.d. 7. Fish oil 1000 mg p.o. daily. 8. Nexium 20 mg one tab p.o. daily. 9. Acetaminophen 650 mg p.o. q.4 hours p.r.n. 10. Amitriptyline 25 mg p.o. at bedtime. 11. Chlorthalidone 25 mg p.o. daily. 12. Gabapentin 200 mg p.o. q.i.d. 13. Humalog 16 units t.i.d. with meals. 14. Lantus 85 units subcu q.a.m. and 85 units subcu at bedtime. 15. Robaxin 500 mg p.o. q.i.d. p.r.n. #30. DISCONTINUED MEDICATIONS: 1. Gabapentin 300 mg p.o. t.i.d. 2. Insulin 80 units subcu b.i.d. 3. Hydrochlorothiazide 25 mg p.o. daily. 4. Tizanidine 4 mg p.o. t.i.d. HOSPITAL COURSE: The patient is a 43-year-old female with a past medical history significant for an ischemic CVA in October of this year, myocardial infarction x2, heart failure with preserved ejection fraction, insulin-dependent diabetes mellitus, and poorly controlled hypertension, who presented to the emergency department with a chief complaint of left-sided chest pain with associated shortness of breath that began shortly prior to her arrival. She denied any radiation or associated diaphoresis, nausea or vomiting or exacerbation with exertion. On presentation to the ED, the patient's vitals were within normal limits with the exception of an elevated BP of 171/102. A CXR and routine labwork were obtained, all of which were unremarkable as well aside from a blood glucose level of 355 & a UA remarkable for a UTI. Her initial troponin was 0.011 & was negative x2 afterwards & her EKG on admission was unchanged from prior EKGs. She was therefore given 1g of rocephin, 1 tab of [place], 500mL of NS, a nitro patch and 324mg of PO ASA prior to being transferred to the floor for further evaluation of her chest pain. Once on the floor the patient's webbing inspector, Dr. Ma, was consulted for recs for further management. He recommended a nuclear stress test the following AM. The stress test was completed over the course of 2 days but was negative for any evidence of new ischemia. On her stress resulted, she as cleared for discharge home with close follow-up with her PCP and Dr. Ma. Regarding her UTI, the patient was transitioned to PO Omnicef which she received over the course of her hospitalization until the date of discharge when she was given a 1x dose of fosfomycin as her urine culture revealed that her infection was pansensitive. Her insulin regimen was also adjusted slightly so that she would take 85U of lantus BID rather than 80U. Regarding her significantly elevated blood pressures, her home medication regimen was adjusted slightly as the patient was transitioned from 25mg of HCTZ to 25mg of chlorthalidone QD. Thus, by the time of discharge her BP was WNLs at 116/73. DISPOSITION: Stable. DISCHARGE INSTRUCTIONS: 1. Location: Home. 2. Diet: Consistent carb, heart healthy diet. 3. Activity: As tolerated. No restrictions. 4. Followup: The patient was instructed to follow up with her primary care provider, Dr. Gilberto Hutton, within 1 week of discharge and her webbing inspector, Dr. Julito Ma, within 2 weeks of discharge. Job ID: [id number] MTDD
--- NOTE | 2019-03-30 16:56 | EKG ---
Test Reason : C/O CHEST PAIN Blood Pressure : / mmHG Vent. Rate : 081 BPM Atrial Rate : 081 BPM P-R Int : 130 ms QRS Dur : 096 ms QT Int : 414 ms P-R-T Axes : 016 -26 006 degrees QTc Int : 480 ms Normal sinus rhythm Inferior infarct (cited on or before 06-MAR-2016) Abnormal ECG When compared with ECG of 24-MAR-2019 07:19, (Unconfirmed) No significant change was found Confirmed by XOCHITL FORTUNE (2) on 03/30/2019 4:55:26 PM Referred By: JOSE GUADALUPE romero Confirmed By:XOCHITL FORTUNE
--- NOTE | 2019-04-03 14:15 | STRESS ---
Acquisition Time: 2019-03-25 10:04:58 Total Exercise Time: 00:01:00 Test Indications: CHEST PAIN Medications: Protocol: LEXISCAN Max HR: 103 BPM 58% of Pred: 176 BPM Max BP: 160/108 mmHG Max Work Load: 1.0 METS THE PATIENT WAS INJECTED WITH LEXISCAN. SHE DID NOT DEVELOP CHEST PAIN. THERE WAS NO SIGNIFICANT ST DEPRESSION. AWAIT NUCLEAR IMAGES FOR DEFINITIVE DIAGNOSIS. Confirmed by MANDEEP PAL ([id number]), department editor JULIANNA KELLEY ([id number]) on 04/03/2019 2:14:53 PM Referred By: MD Angela ULLOA Confirmed By:MANDEEP PAL
--- NOTE | 2019-04-04 12:50 | EKG ---
Test Reason : SOB Blood Pressure : / mmHG Vent. Rate : 082 BPM Atrial Rate : 082 BPM P-R Int : 152 ms QRS Dur : 096 ms QT Int : 416 ms P-R-T Axes : 026 -27 010 degrees QTc Int : 486 ms Normal sinus rhythm Moderate voltage criteria for LVH, may be normal variant Inferior infarct , age undetermined Abnormal ECG Confirmed by KANDY PINEDA, KATHERIN ([id number]), publications editor IAN ANSARI ([id number]) on 04/04/2019 12:50:04 PM Referred By: Confirmed By:KATHERIN GAITAN MD
== END 2019-03-26 13:50 | disposition home or self-care (01) ==
LOC: ERS 07:10 → 2SW 09:58
PROVIDERS: ADMIT Student in an Organized Health Care Education/Training Program; ATTEND Student in an Organized Health Care Education/Training Program
DX: R07.89 Other chest pain (principal); I16.0 Hypertensive urgency; N39.0 Urinary tract infection, site not specified; I25.10 Atherosclerotic heart disease of native coronary artery without angina pectoris; I13.0 Hypertensive heart and chronic kidney disease with heart failure and stage 1 through stage 4 chronic kidney disease, or unspecified chronic kidney disease; B96.20 Unspecified Escherichia coli [E. coli] as the cause of diseases classified elsewhere; I50.32 Chronic diastolic (congestive) heart failure; E11.22 Type 2 diabetes mellitus with diabetic chronic kidney disease; N18.4 Chronic kidney disease, stage 4 (severe); G89.29 Other chronic pain; M54.5 Low back pain; N17.9 Acute kidney failure, unspecified; K21.9 Gastro-esophageal reflux disease without esophagitis; E78.00 Pure hypercholesterolemia, unspecified; E66.9 Obesity, unspecified; D63.8 Anemia in other chronic diseases classified elsewhere; I25.2 Old myocardial infarction; I69.351 Hemiplegia and hemiparesis following cerebral infarction affecting right dominant side; Z68.31 Body mass index [BMI] 31.0-31.9, adult; Z79.4 Long term (current) use of insulin; Z79.82 Long term (current) use of aspirin; Z79.899 Other long term (current) drug therapy; Z87.891 Personal history of nicotine dependence; Z88.1 Allergy status to other antibiotic agents; Z88.8 Allergy status to other drugs, medicaments and biological substances
CPT/HCPCS: 36415; 36416; 71045; 78452; 80048; 80053; 81003; 81015; 82010; 82550; 83690; 83880; 84484; 85025; 87077; 87086; 87186; 93005; 93010; 93017; 94760; 96361; 96365; 96375; A9500; G0378; J0360; J0696; J1650; J1815; J2785; Q0162

== ENCOUNTER 2019-03-31 16:10 | Observation (INO) | payer OTHER, SELFPAY ==
[2019-03-31 17:14] LABS: #Eosinphils 0.2 thou/uL (0.0-0.7); #Lymphocytes 2.1 thou/uL (1.20-3.40); #Monocytes 0.4 thou/uL (0.11-0.59); #Neutrophils 4.8 thou/uL (1.40-6.50); %Basophils 0.5 % (0.0-1.0); %Eosinophils 2.1 % (0.0-10.0); %Lymphocytes 28.3 % (21.0-51.0); %Monocytes 5.4 % (0.0-10.0); %Neutrophils 63.7 % (42.0-75.0); Mean Corpuscular HGB CONC 35.2 g/dL (32.0-36.0); Mean Corpuscular Hemoglobin 30.1 pg (27.0-31.0); Mean Corpuscular Volume 85.7 fL (78.0-98.0); Mean Platelet Volume 9.1 fL (7.4-10.4); Platelet Count 214 thou/uL (130-400); RBC Distribution Width 11.9 % (11.5-14.5); Red Blood Cell (RBC) Count 3.65 mill/uL (4.20-5.40); White Blood Cell (WBC) Count 7.5 thou/uL (4.8-10.8)
[2019-03-31 17:21] LABS: INR-International Normal Ratio 0.9; PTT 27.3 SEC (22.9-36.1); Prothrombin Time 12.3 SEC (12.0-14.7)
--- NOTE | 2019-03-31 17:32 | CT ---
CT BRAIN NONCONTRAST: DATE: 03/31/2019 HISTORY: 43-year-old female with acute stroke symptoms: Dysarthria and headache FINDINGS: There is no evidence of acute intra-axial or extra-axial hemorrhage. There is no midline shift or any other mass effect. There is no extra-axial fluid collection. There is no evidence of obstructive hydrocephalus. Calvarium is intact. Small patchy regions of encephalomalacia and gliosis involving th e right middle cerebellar peduncle and adjacent portions of right cerebellar hemisphere. No interval change since 02/04/2019. IMPRESSION: 1. No acute intracranial findings. 2. Old insults, presumably old infarctions, in the right posterior fossa, including right brachium po ntis and right cerebellar hemisphere.
[2019-03-31 17:41] LABS: ALT (SGPT) 35 U/L (8-55); AST (SGOT) 25 U/L (5-34); Albumin 3.2 g/dL (3.5-5.0); Alkaline Phosphatase 168 U/L (40-110); Anion Gap 13 mmol/L (10-20); BUN (Urea Nitrogen) 39 mg/dL (7.0-18.7); Bilirubin, Total 0.2 mg/dL (0.2-1.2); Calc. Creatinine Clearance 0 mL/min (70-130); Calcium 7.7 mg/dL (7.8-10.44); Carbon Dioxide 23 mmol/L (22-29); Chloride 98 mmol/L (98-107); Estimated GFR-MDRD 16; Globulin 3.3 g/dL (2.4-3.5); Potassium 4.3 mmol/L (3.5-5.1); Protein, Total 6.5 g/dL (6.0-8.3); Sodium 130 mmol/L (136-145)
[2019-03-31 17:43] LABS: Glucose 642 mg/dL (70-105)
[2019-03-31] MEDS ORDERED: Insulin Regular 300 UNITS/3 ML VIAL ONE (18:26)
--- NOTE | 2019-03-31 18:42 | PDOC.FPRHP ---
- History of Present Illness Chief Complaint: Slurred Speech, ALEMAN History of Present Illness: Pt is a 43 yo female with PMH significant for hx of CVA in 10/2018, diastolic dysfunction, CAD, CKD 4, HTN who presents for slurred speech, ALEMAN. Pt states symptoms began last night. Pt was unable to articulate words well. Home health visited her this morning who prompted her to be seen in ED. She states overnight she was unable to sleep so she took extra gabapentin. This morning she feels she has to focus to articulate words, states she feels zoned out, finds herself "sleep talking". She endorsed R sided, frontal ALEMAN for previous 3 days not alleviated with home medications. Pt was discharged a few days ago for chest pain with a negative stress test for ischemia. CVA in 10/2018 deficits include R sided weakness - facial, upper extremity, lower extremity. Sensory preserved. ED Course: In the ED she was found to be mildly hypertensive. CT scan was negative for acute intracranial process but did reveal chronic changes. EKG was WNL. Creatinine mildly elevated but pt has chronic kidney disease. BG 642, no anion gap. She was given 10 U of fast acting insulin, fluids. - Allergies/Adverse Reactions Allergies Allergy/AdvReac Type Severity Reaction Status Date / Time ciprofloxacin Allergy Hives Verified 03/24/19 10:30 lisinopril Allergy Anaphylaxis Verified 03/24/19 10:30 - Home Medications Medication Instructions Recorded Confirmed Type Amlodipine [Norvasc] 10 mg PO DAILY #30 tab 05/10/18 03/31/19 Rx Insulin Aspart [NovoLOG FlexPen] 1 - 12 units SC TID-WM 11/03/18 03/31/19 History Aspirin [Ecotrin Low Strength] 81 mg PO DAILY tab 11/08/18 03/31/19 Rx Atorvastatin Calcium [Lipitor] 80 mg PO HS tab 11/08/18 03/31/19 Rx Carvedilol [Coreg] 25 mg PO BID-WM tab 11/08/18 03/31/19 Rx hydrALAZINE [Apresoline] 50 mg PO TID tab 11/08/18 03/31/19 Rx Fish Oil 1,000 mg PO DAILY #30 cap 02/05/19 03/31/19 Rx Esomeprazole Magnesium [Nexium 1 tab PO DAILY 03/24/19 03/31/19 History 24Hr] Acetaminophen [Tylenol Regular 650 mg PO Q4H PRN tab 03/26/19 03/31/19 Rx Strength] Amitriptyline HCl [Elavil] 25 mg PO HS #30 tab 03/26/19 03/31/19 Rx Chlorthalidone [Hygroton] 25 mg PO DAILY #30 tab 03/26/19 03/31/19 Rx Gabapentin [Neurontin] 200 mg PO QID #120 cap 03/26/19 03/31/19 Rx HumaLOG [HumaLOG Vial] 16 units SC TID-WM vial 03/26/19 03/31/19 Rx Insulin Glargine [Lantus Vial] 85 units SC HS #3 vial 03/26/19 03/31/19 Rx Insulin Glargine [Lantus Vial] 85 units SC QAM #3 vial 03/26/19 03/31/19 Rx Methocarbamol [Robaxin] 500 mg PO QIDPRN PRN #30 tab 03/26/19 03/31/19 Rx Escitalopram Oxalate 20 mg PO DAILY 03/31/19 03/31/19 History - History PMHx: hx of CVA in 10/2018, diastolic dysfunction, CAD, CKD 4, HTN PSHx: C/S x2, Back surgery, tonsillectomy, tubal ligation FHx: Noncontributory Social: Former smoker, >20yrs - quit 6mo ago. Occasional alcohol use. Denies drug use. - Review of Systems General: denies: fever/chills, weight/appetite/sleep changes, night sweats, fatigue Eyes: denies: vision changes ENT: denies: nasal congestion, rhinorrhea Respiratory: denies: cough, congestion, shortness of breath Cardiovascular: denies: chest pain, palpitation, edema Gastrointestinal: denies: nausea, vomiting, diarrhea, constipation Genitourinary: denies: dysuria, polyuria (pt noted no change in urintion) Skin: denies: rashes, lesions Musculoskeletal: denies: pain, swelling Neurological: reports: other (Headache). denies: numbness, syncope, weakness ( Slurred speech) - Vital signs BP: [164/90] HR: [84] RR: [20] Tmax: [98.2] Pox: [97]% on [RA] Wt: [100.24 kg ] - Physical Exam Constitutional: NAD, awake, alert and oriented HEENT: PERRLA, EOMI, grossly normal vision -HEENT: poor dentician Neck: FROM, trachea midline Heart: RRR, normal S1/S2, pulses present, other (trace edema) Lungs: CTAB, no respiratory distress, no wheezing Abdomen: non-tender, bowel sounds present -Neurological: R side strength 5/5 but diminished compared to L side upper extremity and lower extremity. Facial weakness, CN XII deficit. Sensory intact in UE and face. Pt endorsed chronic LE sensory changes to touch. Skin: no rash/lesions, capillary refill <2 seconds Heme/Lymphatic: no purpura, no petechia Psychiatric: normal mood and affect, intact recent and remote memory FMR H&P: Results - Labs Result Diagrams: 03/31/19 17:00 03/31/19 17:00 Lab results: WBC 7.5 thou/uL (4.8-10.8) 03/31/19 17:00 Hgb 11.0 g/dL (12.0-16.0) L 03/31/19 17:00 Hct 31.3 % (36.0-47.0) L 03/31/19 17:00 MCV 85.7 fL (78.0-98.0) 03/31/19 17:00 Plt Count 214 thou/uL (130-400) 03/31/19 17:00 Neutrophils % 63.7 % (42.0-75.0) 03/31/19 17:00 Sodium 130 mmol/L (136-145) L 03/31/19 17:00 Potassium 4.3 mmol/L (3.5-5.1) 03/31/19 17:00 Chloride 98 mmol/L (98-107) 03/31/19 17:00 Carbon Dioxide 23 mmol/L (22-29) 03/31/19 17:00 BUN 39 mg/dL (7.0-18.7) H 03/31/19 17:00 Creatinine 3.08 mg/dL (0.6-1.1) H 03/31/19 17:00 Glucose 642 mg/dL (70-105) H* 03/31/19 17:00 Calcium 7.7 mg/dL (7.8-10.44) L 03/31/19 17:00 Total Bilirubin 0.2 mg/dL (0.2-1.2) 03/31/19 17:00 AST 25 U/L (5-34) 03/31/19 17:00 ALT 35 U/L (8-55) 03/31/19 17:00 Alkaline Phosphatase 168 U/L (40-110) H 03/31/19 17:00 Serum Total Protein 6.5 g/dL (6.0-8.3) 03/31/19 17:00 Albumin 3.2 g/dL (3.5-5.0) L 03/31/19 17:00 - EKG Interpretation EKG: NSR FMR H&P: A/P - Problem List (1) Foot abrasion Current Visit: Yes Status: Acute Code(s): S90.819A - ABRASION, UNSPECIFIED FOOT, INITIAL ENCOUNTER (2) Dysarthria Current Visit: Yes Status: Acute Code(s): R47.1 - DYSARTHRIA AND ANARTHRIA (3) Hyperglycemia due to type 2 diabetes mellitus Current Visit: Yes Status: Acute Code(s): E11.65 - TYPE 2 DIABETES MELLITUS WITH HYPERGLYCEMIA (4) GWEN (acute kidney injury) Current Visit: No Status: Acute Code(s): N17.9 - ACUTE KIDNEY FAILURE, UNSPECIFIED Comment: Improving, continue IV fluids. (5) Acute worsening of stage 3 chronic kidney disease Current Visit: No Status: Acute Code(s): N18.3 - CHRONIC KIDNEY DISEASE, STAGE 3 (MODERATE) Comment: start IV fluids, hold metformin, HCTZ and ARB. (6) History of stroke Current Visit: No Status: Acute Code(s): Z86.73 - PRSNL HX OF TIA (TIA), AND CEREB INFRC W/O RESID DEFICITS (7) Hypertensive urgency Current Visit: No Status: Acute Code(s): I16.0 - HYPERTENSIVE URGENCY (8) DM type 2 (diabetes mellitus, type 2) Current Visit: No Status: Chronic Qualifiers: Comment: continue accuchecks, insulin sliding scale. Start lantus (9) Dyslipidemia Current Visit: No Status: Chronic Code(s): E78.5 - HYPERLIPIDEMIA, UNSPECIFIED Comment: continue statin (10) HTN (hypertension) Current Visit: No Status: Chronic Code(s): I10 - ESSENTIAL (PRIMARY) HYPERTENSION Qualifiers: Comment: hypertensive urgency has resolved, resume home medications. Mild hypokalemia, discontinue HCTZ (11) Obesity Current Visit: No Status: Chronic Code(s): E66.9 - OBESITY, UNSPECIFIED - Plan Pt is a 43 yo female who presents with PMH significant for hx of CVA in 10/2018, diastolic dysfunction, CAD, CKD 3, HTN, poorly controlled DM who presents with slurred speech, hyperglycemia, and elevated blood pressure currently being monitored for stroke like symptoms. # Dysarthria CVA vs Medication AE Hx of CVA 10/2018. Pt states only new deficit is dysarthria. Pt has good articulation when she concentrates. R sided weakness pt states is unchanged. She did have positive pronator drift. Possible pt's symptoms are secondary to gabapentin adverse effects - currently takes gabapentin 200 mg qid and took extra dose overnight for sleep but pt has renal impairment potentially leading to toxicity. Carotid U/S in 2017 revealed no significant stenosis. Lipid [address] head negative for acute pathology. - hold sedating medications including gabapentin - MRI in am - Permissive HTN, restart bp meds in morning; labetolol prn > 220/110 # Hyperglycemia # DM II w/ Insulin # HHS w/o anion gap Appears to not be well controlled although pt seems likely non-compliant - continue home Lantus, held short acting insulin - q2h accuchecks - once BG corrects switch to achs checks - LR 125 mls/hr - Intense SSI # Diabetic Neuropathy - held gabapentin as above # CKD IV Mild elevation of creatinine at ~3 from baseline. CrCl 37. GFR 16. - fluids # Hyponatremia Corrected for glucose is 139 - monitor # HLD - continue home meds - consider switch to vascepa in outpt setting for resistant triglycerides # HTN - held as above # ALEMAN 3 day ALEMAN in R frontal region - continued amitriptyline - ordered jim valencia # Diastolic Dysfunction - monitor for overload with fluids Diet: Diabetic Diet Fluids: LR 125 mls/hr VTE Prophylaxis: lovenox Code: Full Dispo: Stable, admit pt to obs for dysarthria. FMR H&P: Upper Level - Pertinent history 43 yo F w/ PMH of cva and prior AL, DMII, CKD3, HTN, HLD presnt for evlaution of dysarthria and worsening facial droop as witnessed by home health. Pt reports no change in speech and unsure of worsneing facial droop. HH witnessed changes at her home during therapy around 3 pm and she was snet for further evalation. Pt dneies any other symptoms and reports she simply feels like her mentation is slwoer than usual. She reports she took and extra dose of gabapentin because she couldnt sleep. Overall reports symptoms are unchanged. CT head in ER was negative for bleed. Labs showed worsening kidney function and profound hyperglycemia at 648. Na low, but pseudohyponatremia. - Pertinent findings ROS: as above PE: Gen: nad HEENT: NCAT, rt eye sutured closed by opthamologist, residual rt sided facial droop from prior cva. EOMI from limited exam CV: RRR No MRG Rep: CTA bl no wrr Abd: Soft NTND bsx4 Neuro: strength 5/5 throughout. CN7 deficits right - Plan Date/Time: 03/31/191841 [place], , have evaluated this patient and agree with findings/ plan as outlined by computer science intern resident. Pertinent changes/additions are listed here. 1) TIA vs adverse medication reaction - plan for MRI in am for further evaluation - ct head negative - cont HI statin asa - allow for permissive HTN in case new lesion - consider gabapentin toxicity as pt overdosed for renal function and took extra dose to help her sleep night prior to symptom onset - doseage adjusted - consider dual antiplatelet therapy if new infarct detected - neuro checks and consult speech pt ot 2) Hyperglycemia 2/2 DMII - aggressive ssi - q2 hr accuchecks - given 10 ra insulin - no gap or evidence of DKA - cont IVF and administer pts home lantus dose 3) Pseudohyponatremia - 2/2 above 4) GWEN on CKD - hold nephrotoxic meds and renally adjust others as appropriate - Cr Cl 37 - IVF and trend 5) HTN: hold, allow permissive htn protect penumbra - if MRI negative restart home medications 6) HLD: - HI statin - consider vascepa vs levada addition, prior trigs >1000 and persistently elevated despite therapy 7) DMII - see 2 8) Migraine: - on amitriptyline for ppx - benadryl reglan and IVF for headache Dispo: stable. admit neuro for neuro checks. MRI in am and advance medications as appropriate PCP Prihoda Code Status Full
[2019-03-31] MEDS ORDERED: Dextrose 5% in Water 1,000 ML IV PRN (19:11)
[2019-03-31] MEDS ORDERED: Dextrose 50% Abboject 50 ML SYRINGE SLOW IVP PRN (19:11)
[2019-03-31] MEDS ORDERED: Acetaminophen 325 MG TAB PO PRN (19:22)
[2019-03-31] MEDS ORDERED: Metoclopramide 10 MG/10 ML UDCUP PO SCH (20:00)
[2019-03-31] MEDS ORDERED: diphenhydrAMINE 25 MG CAP PO SCH (20:00)
[2019-03-31] MEDS ORDERED: Acetaminophen 500 MG TAB ONE (20:03)
[2019-03-31] MEDS ORDERED: Labetalol HCl 100 MG/20 ML VIAL SLOW IVP PRN (20:20)
[2019-03-31 22:54] VITALS: BMI 31.7
[2019-04-01] MEDS ORDERED: HumaLOG 300 UNITS/3 ML VIAL SC SCH (00:45)
[2019-04-01] MEDS: Lactated Ringer's 1,000 ML IV SCH ×3 (01:48→15:44)
[2019-04-01] MEDS: Atorvastatin Calcium 40 MG TAB PO SCH ×2 (02:04→22:14)
[2019-04-01] MEDS: PRE FILLED SC SCH ×4 (02:04→22:16)
[2019-04-01] MEDS: INSULIN GLARGINE SC SCH ×4 (02:04→22:16)
[2019-04-01] MEDS: Amitriptyline HCl 25 MG TAB PO SCH ×2 (02:04→22:15)
[2019-04-01] MEDS: Acetaminophen 325 MG TAB PO PRN ×3 (02:25→16:56)
[2019-04-01 05:08] LABS: Anion Gap 13 mmol/L (10-20); BUN (Urea Nitrogen) 38 mg/dL (7.0-18.7); Calc. Creatinine Clearance 43 mL/min (70-130); Calcium 8.1 mg/dL (7.8-10.44); Carbon Dioxide 21 mmol/L (22-29); Chloride 104 mmol/L (98-107); Estimated GFR-MDRD 19; Glucose 327 mg/dL (70-105); Sodium 134 mmol/L (136-145)
--- NOTE | 2019-04-01 07:08 | PDOC.FM ---
- Subjective Subjective: Patient resting comfortably in bed. She states that she feels well this morning. She states that her headache has improved from last night. She states that she does feel overall weaker but not more on one side vs the other. She states that she was able to eat an orange this morning with no issues. She states that she was able to eat food yesterday after the slurred speech started without issues. She cuts up her food in small pieces. She also showed me her foot wound on her right foot. She states that she noticed it last Sunday after she peeled some dry skin off. She states she has kept it clean and covered with a bandage. Denies any fever or chills. She has been able to bear weight. - Objective MAR Reviewed: Yes Vital Signs & Weight: Vital Signs (12 hours) Temp Pulse Resp BP Pulse Ox 04/01/19 04:45 98.3 F 88 16 163/98 H 97 03/31/19 22:15 99.2 F 79 16 166/96 H 99 Weight Weight 103.192 kg I&O: 03/31/19 04/01/19 04/02/19 06:59 06:59 06:59 Intake Total 840 Balance 840 Result Diagrams: 03/31/19 17:00 04/01/19 04:10 Phys Exam - Physical Examination Constitutional: NAD HEENT: PERRLA, moist MMs, sclera anicteric Neck: supple, full ROM Respiratory: clear to auscultation bilateral Cardiovascular: RRR, no significant murmur, no rub Gastrointestinal: soft, non-tender, no distention, positive bowel sounds Musculoskeletal: no edema, pulses present Neurological: normal sensation, moves all 4 limbs right side 4/5 strength, left side 5/5 Psychiatric: normal affect, A&O x 3 Skin: no rash, normal turgor, cap refill <2 seconds Deviation from normal: right foot - ball of foot there is a 3cm lesion that is draining Dx/Plan (1) Dysarthria Code(s): R47.1 - DYSARTHRIA AND ANARTHRIA Status: Acute (2) Hyperglycemia due to type 2 diabetes mellitus Code(s): E11.65 - TYPE 2 DIABETES MELLITUS WITH HYPERGLYCEMIA Status: Acute (3) GWEN (acute kidney injury) Code(s): N17.9 - ACUTE KIDNEY FAILURE, UNSPECIFIED Status: Acute (4) GERD (gastroesophageal reflux disease) Code(s): K21.9 - GASTRO-ESOPHAGEAL REFLUX DISEASE WITHOUT ESOPHAGITIS Status: Acute (5) History of stroke Code(s): Z86.73 - PRSNL HX OF TIA (TIA), AND CEREB INFRC W/O RESID DEFICITS Status: Acute (6) Hypercholesteremia Code(s): E78.00 - PURE HYPERCHOLESTEROLEMIA, UNSPECIFIED Status: Acute (7) CAD (coronary artery disease) Code(s): I25.10 - ATHSCL HEART DISEASE OF [place] CORONARY ARTERY W/O ANG PCTRS Status: Chronic Qualifiers: (8) DM type 2 (diabetes mellitus, type 2) Status: Chronic Qualifiers: (9) HTN (hypertension) Code(s): I10 - ESSENTIAL (PRIMARY) HYPERTENSION Status: Chronic Qualifiers: (10) Obesity Code(s): E66.9 - OBESITY, UNSPECIFIED Status: Chronic - Plan Plan: Pt is a 43 yo female who presents with PMH significant for hx of CVA in 10/2018, diastolic dysfunction, CAD, CKD 3, HTN, poorly controlled DM who presents with slurred speech, hyperglycemia, and elevated blood pressure currently being monitored for stroke like symptoms. Dysarthria CVA vs Medication AE. CT head negative. - Hx of CVA 10/2018. Pt states only new deficit is dysarthria. Pt has good articulation when she concentrates. R sided weakness pt states is unchanged. Carotid U/S in 2018 revealed no significant stenosis. Lipid 01/2019 revealed elevated triglycerides. - Possible pt's symptoms are secondary to gabapentin adverse effects - currently takes gabapentin 200 mg qid and took extra dose overnight for sleep but pt has renal impairment potentially leading to toxicity. - Hold sedating medications including gabapentin to see if this improves symptoms - MRI pending - Will restart BP medications this AM IDDM presenting with HHS without anion gap Glucose initially 640-> 230 - will space out to q4hr glucose checks and will continue to space out if <250. Will continue home regimen of insulin and have aggressive sliding scale - LR 125ms/hr Right Foot Wound - Will consult wound care - Keep wound clean and covered for now; no elevated white count, VS stable, no concern for infection at this time. Will continue to get sugars under control for optimal healing. Diabetic Neuropathy - Held gabapentin as above CKD IV Mild elevation of creatinine at ~3 from baseline. CrCl 37. GFR 16. - IVF, will continue to monitor Hyponatremia Corrected for glucose is 139 - monitor HLD - Continue home meds - Consider switch to vascepa in outpt setting for resistant triglycerides HTN - Will restart home meds today Tension Headache, resolved 3 day ALEMAN in R frontal region - continue amitriptyline - ordered jim valencia Diastolic Dysfunction - monitor for overload with fluids Diet: Diabetic Diet Fluids: LR 125 mls/hr VTE Prophylaxis: lovenox Code: Full Dispo: Stable, pending MRI and further work up
[2019-04-01] MEDS: Fish Oil 1,000 MG CAP PO SCH (08:46)
[2019-04-01] MEDS: Aspirin 81 mg Enteric Coated Tablet PO SCH (08:46)
[2019-04-01] MEDS: HumaLOG 300 UNITS/3 ML VIAL SC PRN ×3 (08:46→16:53)
[2019-04-01] MEDS ORDERED: Enoxaparin Sodium 30 MG/0.3 ML SYRINGE SC SCH (09:00)
[2019-04-01] MEDS ORDERED: Aspirin 81 mg Enteric Coated Tablet PO SCH (09:00)
[2019-04-01] MEDS ORDERED: Aspirin 325 mg Enteric Coated Tablet PO SCH (09:00)
--- NOTE | 2019-04-01 10:19 | PRG ---
DATE OF SERVICE: 04/01/2019 Ms. Goldman is a very unfortunate 43-year-old female patient with 20-year history of type 2 diabetes. Until recently, she was maintaining good control with an A1c of 6. It, however, now has risen to above 9. In the event, she presented yesterday with TIA type symptoms with slurred speech and dysarthria. However, this is felt possibly be due to the gabapentin, which she took an extra dose to help her sleep. This morning, she is a "at baseline." We are awaiting the results of an MRI to see if the patient did indeed have a mini-stroke. In the event, we will continue to maintain control of her blood pressure, monitor her blood glucoses and treat accordingly. She is already on aspirin and atorvastatin. Unfortunately, when she came in, her BUN was 39 and her creatinine was 3.08. Her creatinine this morning is 2.73 and a GFR is 19. She has sustained an another GWEN high on top of her CKD. I am certain she is headed at some point for dialysis. Job ID: [id number]
--- NOTE | 2019-04-01 10:33 | MRI ---
EXAM: MRI Brain WO Con PROVIDED CLINICAL HISTORY: Stroke. Patient has dysarthria and headache. COMPARISON: MRI brain ON 02/05/2019. FINDINGS: Again noted is an area of encephalomalacia and gliosis involving the right cerebellar hemisphere and right middle cerebellar peduncle likely related to remote areas of infarction. There are scattered punctate areas of increased FLAIR and T2-weighted signal intensity seen in the periventricular and echevarria bcortical white matter which are unchanged from prior study and are nonspecific but likely reflective of chronic small vessel ischemic changes. There is no evidence of an acute infarction. Mil d cerebral volume loss present. The septum pellucidum and third ventricle in the midline. The ventricular system is normal in size, shape, and position for the degree of sulcal atrophy. The left vertebral artery flow-void is dominant. There are flow voids are demonstrated at the base of the brain. The orbits, paranasal sinuses, and skull base have a normal MRI appearance. MRI brain is overall stable compared to prior study IMPRESSION: 1. No acute intracranial abnormality is demonstrated. 2. Findings likely related to remote areas of infarction involving the right middle cerebral peduncle and right cerebellar hemisphere.
[2019-04-01] MEDS: Chlorthalidone 25 MG TAB PO SCH (10:58)
[2019-04-01] MEDS: Amlodipine 10 MG TAB PO SCH (10:58)
[2019-04-01] MEDS: hydrALAZINE 25 MG TAB PO SCH ×2 (15:45→22:14)
[2019-04-01] MEDS: Carvedilol 25 MG TAB PO SCH (16:54)
[2019-04-01] MEDS ORDERED: Enoxaparin Sodium 40 MG/0.4 ML SYRINGE SC SCH (21:00)
[2019-04-01] MEDS: Gabapentin 400 MG CAP PO SCH (22:16)
[2019-04-02 06:26] LABS: Anion Gap 12 mmol/L (10-20); BUN (Urea Nitrogen) 30 mg/dL (7.0-18.7); Calc. Creatinine Clearance 48 mL/min (70-130); Calcium 8.3 mg/dL (7.8-10.44); Carbon Dioxide 21 mmol/L (22-29); Chloride 102 mmol/L (98-107); Estimated GFR-MDRD 21; Glucose 225 mg/dL (70-105); Potassium 3.9 mmol/L (3.5-5.1); Sodium 131 mmol/L (136-145)
[2019-04-02] MEDS: HumaLOG 300 UNITS/3 ML VIAL SC PRN ×2 (06:32→11:41)
--- NOTE | 2019-04-02 06:42 | PDOC.FM ---
- Subjective Subjective: Feeling well this morning. Slept well. She did catch her toe on something on the floor overnight which caused her toe to start bleeding. This is the same foot with the chronic wound. Pt denies headache, chest pain, speech changes this AM. - Objective MAR Reviewed: Yes Vital Signs & Weight: Vital Signs (12 hours) Temp Pulse Resp BP BP Pulse Ox 04/02/19 03:13 98.4 F 78 12 154/90 H 94 L 04/01/19 23:41 99.1 F 73 16 145/88 H 94 L 04/01/19 22:14 70 157/86 H 04/01/19 20:00 98.8 F 70 12 157/86 H 95 Weight Admit Weight 103.192 kg Weight 103.192 kg I&O: 03/31/19 04/01/19 04/02/19 06:59 06:59 06:59 Intake Total 840 540 Balance 840 540 Result Diagrams: 03/31/19 17:00 04/02/19 05:03 Phys Exam - Physical Examination Constitutional: NAD HEENT: moist MMs Neck: supple Respiratory: no wheezing, clear to auscultation bilateral Cardiovascular: RRR, no significant murmur Gastrointestinal: soft, non-tender, positive bowel sounds Musculoskeletal: pulses present Neurological: non-focal, moves all 4 limbs Psychiatric: normal affect, A&O x 3 Skin: normal turgor Dx/Plan - Plan Plan: Dysarthria 2/2 CVA vs Medication AE. - CT head negative. - Hx of CVA 10/2018 with residual right sided weakness. - Carotid U/S in 2018 revealed no significant stenosis. Lipid 01/2019 with elevated triglycerides. - Takes gabapentin with reduced renal function, pharmacy recommended switching to BID dosing instead of QID dosing to allow for better excretion. - MRI no evidence of acute infarct - Continue ASA and statin IDDM in HHS, resolved - Glucose initially 640 - Continue home insulin with aggressive SSI - LR 125ms/hr Right Foot Wound - Wound care Diabetic Neuropathy - Decreased gabapentin as above CKD IV - Back at baseline today Hyponatremia 2/2 hyperglycemia HLD - Continue home meds HTN - Continue home meds Tension Headache, resolved - Continue amitriptyline Diastolic Dysfunction - Monitor for overload with fluids Diet: Diabetic Diet Fluids: LR 125 mls/hr VTE Prophylaxis: lovenox Code: Full
[2019-04-02] MEDS: Lactated Ringer's 1,000 ML IV SCH (07:57)
[2019-04-02] MEDS ORDERED: Insulin Glargine 90 UNITS in Pre-Filled Syringe 1 EACH SC SCH (09:00)
[2019-04-02] MEDS: hydrALAZINE 25 MG TAB PO SCH (09:21)
[2019-04-02] MEDS: Carvedilol 25 MG TAB PO SCH (09:22)
[2019-04-02] MEDS: Gabapentin 400 MG CAP PO SCH (09:22)
[2019-04-02] MEDS: Amlodipine 10 MG TAB PO SCH (09:22)
[2019-04-02] MEDS: Chlorthalidone 25 MG TAB PO SCH (09:22)
[2019-04-02] MEDS: Aspirin 81 mg Enteric Coated Tablet PO SCH (09:23)
[2019-04-02] MEDS: Fish Oil 1,000 MG CAP PO SCH (09:23)
--- NOTE | 2019-04-02 09:56 | PRG ---
DATE OF SERVICE: 04/02/2019 Ms. Goldman is eating breakfast this morning. Unfortunately, she has stubbed and re-injured her right great toe early this morning. It has been appropriately bandaged and is no longer bleeding. Her glucose levels are still elevated, but much improved over what they were on admission. Her MRI yesterday showed her old infarcts, but no new areas of infarct. She can likely be discharged later today. It would appear that her garbled speech was likely related to her old stroke and a rather high dose of gabapentin. The gabapentin has been adjusted, however, given her CKD. Job ID: [id number]
[2019-04-02 12:02] VITALS: TEMP 97.4
[2019-04-02] MEDS ORDERED: FLU VACC QS2019-20(6MOS UP)/PF 60 MCG/0.5 ML SYRINGE IM ONE (12:30)
[2019-04-02 13:39] VITALS: BP 182/99
--- NOTE | 2019-04-03 12:19 | DIS ---
DATE OF ADMISSION: 03/31/2019 DATE OF DISCHARGE: 04/02/2019 RESIDENT: Renetta Bah, PGY-1. ADMITTING ATTENDING: Lit Torres MD. DISCHARGE ATTENDING: Lit Torres MD. CONSULTS: None. PROCEDURES: 1. Brain CT, no acute intracranial findings. Presumably old infarcts in the right posterior fossa including right brachium pontis and right cerebral hemisphere. 2. Brain MRI, 04/01/2019, no acute intracranial abnormality is demonstrated. Findings likely related to remote areas of infarct involving the right middle cerebral peduncle and right cerebral hemisphere. PRIMARY DIAGNOSES: 1. Dysarthria, likely secondary to medication adverse effect. 2. Insulin dependent diabetes in HHS, resolved. SECONDARY DIAGNOSES: 1. Right foot wound. 2. Diabetic neuropathy. 3. CKD 4. 4. Hyponatremia 5. Hyperlipidemia. 6. Hypertension. 7. Tension headache, resolved. 8. Heart failure with diastolic dysfunction. DISCHARGE MEDICATIONS: 1. Amlodipine 10 mg daily. 2. Coreg 25 mg b.i.d. 3. Aspirin 81 mg daily. 4. Amitriptyline 25 mg nightly. 5. Atorvastatin 80 mg nightly. 6. Chlorthalidone 25 mg daily. 7. Escitalopram 20 mg daily. 8. Nexium 20 mg daily. 9. Fish oil 1000 mg daily. 10. Gabapentin 400 mg b.i.d. 11. Humalog 16 units t.i.d. with meals. 12. Hydralazine 50 mg t.i.d. 13. Insulin 90U b.i.d. 14. Robaxin 500 mg q.i.d. DISCONTINUED MEDICATIONS: Gabapentin 200 mg q.i.d. HISTORY OF PRESENT ILLNESS/HOSPITAL COURSE: Ms. Goldman is a 43-year-old female with past medical history of CVA in October 2018, heart failure with diastolic dysfunction, coronary artery disease, CKD 4 and hypertension, who presented with slurred speech concerning for acute CVA. Symptoms had started the night before. She reported that the night before she was unable to sleep, so she took extra gabapentin and then in the morning, felt that it was hard to talk, particularly words. Also, reported right-sided frontal headache. In the ED, she had a CT scan that was negative for acute process, but did reveal chronic changes. Her EKG was normal. Her blood glucose was 642 with no anion gap. She was given 10 units of fast acting insulin. Upon exam, she is found to have left greater than right strength in her upper and lower extremity and some facial weakness. MRI was performed that was negative for acute changes. In regard to her hyperglycemia, she was continued on her home Lantus and aggressive sliding scale with q.2 hour Accu-Cheks were performed. Her initial creatinine was 3.08 and 2.45 at discharge, which is patient's baseline. Her glucose did come down to 187 prior to discharge. Other chronic medical problems of her right chronic foot wound was managed with Wound Care; her gabapentin was adjusted based on her creatinine clearance to b.i.d. dosing per Pharmacy for better clearance. Her hyperlipidemia and hypertension were treated with home medications and in regard to her tension headache, it resolved during the course of hospitalization, she was continued on amitriptyline. DISPOSITION: Stable. DISCHARGE INSTRUCTIONS: 1. Location: Home. 2. Diet: Diabetic, carb consistent. 3. Activity: No restrictions. 4. Follow up with PCP, Dr. Hutton within 3 to 7 days. Job ID: [id number] MARIANA
[2019-04-03] MEDS ORDERED: FLU VACC QS2019-20(6MOS UP)/PF 60 MCG/0.5 ML SYRINGE IM ONE (12:30)
--- NOTE | 2019-04-05 13:42 | EKG ---
Test Reason : STROKE S/S Blood Pressure : / mmHG Vent. Rate : 082 BPM Atrial Rate : 082 BPM P-R Int : 150 ms QRS Dur : 096 ms QT Int : 426 ms P-R-T Axes : 055 -29 020 degrees QTc Int : 497 ms Normal sinus rhythm Inferior infarct , age undetermined Abnormal ECG Confirmed by MALKA CHOWDHURY ([id number]), manager editorial IAN ANSARI ([id number]) on 04/05/2019 1:41:19 PM Referred By: ERSMDO Confirmed By:MALKA CHOWDHURY
== END 2019-04-02 14:41 | disposition home health service (06) ==
LOC: ERS 16:10 → 2SE 19:44
PROVIDERS: ADMIT Family Medicine; ATTEND Family Medicine
DX: R47.1 Dysarthria and anarthria (principal); I13.0 Hypertensive heart and chronic kidney disease with heart failure and stage 1 through stage 4 chronic kidney disease, or unspecified chronic kidney disease; E11.22 Type 2 diabetes mellitus with diabetic chronic kidney disease; E11.40 Type 2 diabetes mellitus with diabetic neuropathy, unspecified; E11.65 Type 2 diabetes mellitus with hyperglycemia; N18.4 Chronic kidney disease, stage 4 (severe); N17.9 Acute kidney failure, unspecified; I50.30 Unspecified diastolic (congestive) heart failure; E78.5 Hyperlipidemia, unspecified; E87.1 Hypo-osmolality and hyponatremia; G43.909 Migraine, unspecified, not intractable, without status migrainosus; I25.10 Atherosclerotic heart disease of native coronary artery without angina pectoris; E66.9 Obesity, unspecified; Z68.31 Body mass index [BMI] 31.0-31.9, adult; Z79.4 Long term (current) use of insulin; Z79.899 Other long term (current) drug therapy; Z86.73 Personal history of transient ischemic attack (TIA), and cerebral infarction without residual deficits; Z87.891 Personal history of nicotine dependence; Z88.1 Allergy status to other antibiotic agents; Z88.8 Allergy status to other drugs, medicaments and biological substances
CPT/HCPCS: 36415; 36416; 70450; 70551; 80048; 80053; 85025; 85610; 85730; 90471; 90686; 93005; 96361; 96372; 96374; G0008; G0378; J1650; J1815; Q0163

== ENCOUNTER 2020-01-26 00:16 | Inpatient (IN) | payer MEDICARE, OTHER ==
--- NOTE | 2020-01-26 01:54 | PDOC.FPRHP ---
- History of Present Illness Chief Complaint: chest cramps History of Present Illness: PT transferred from [place] for further evaluation. C/o chest pain and increasing edema. Reports dyspnea began @ ~1100 on 01/24 & became progressively worse over the course of the day & had chest cramping that started @ ~2100 yesterday evening. Reports radiation around her left side into her back. Did not try anything for relief at home. Endorses associated dizziness & nausea. + increased edema in her legs & weight gain as well. Saw Senior Biostatistician/Group Leader Dr. Hartley 01/21 who restarted her lasix and gave her orders for renal US and blood work which she has not gotten yet. ED Course: [place]: 1g CaCl, 80mg IV lasix, aspirin - Allergies/Adverse Reactions Allergies Allergy/AdvReac Type Severity Reaction Status Date / Time ciprofloxacin Allergy Hives Verified 01/26/20 03:29 lisinopril Allergy Anaphylaxis Verified 01/26/20 03:29 - Home Medications Medication Instructions Recorded Confirmed Type Amlodipine [Norvasc] 10 mg PO DAILY #30 tab 05/10/18 03/31/19 Rx Insulin Aspart [NovoLOG FlexPen] 1 - 12 units SC TID-WM 11/03/18 03/31/19 History Aspirin [Ecotrin Low Strength] 81 mg PO DAILY tab 11/08/18 03/31/19 Rx Atorvastatin Calcium [Lipitor] 80 mg PO HS tab 11/08/18 03/31/19 Rx Carvedilol [Coreg] 25 mg PO BID-WM tab 11/08/18 03/31/19 Rx hydrALAZINE [Apresoline] 50 mg PO TID tab 11/08/18 03/31/19 Rx Fish Oil 1,000 mg PO DAILY #30 cap 02/05/19 03/31/19 Rx Esomeprazole Magnesium [Nexium 1 tab PO DAILY 03/24/19 03/31/19 History 24Hr] Acetaminophen [Tylenol Regular 650 mg PO Q4H PRN tab 03/26/19 03/31/19 Rx Strength] Amitriptyline HCl [Elavil] 25 mg PO HS #30 tab 03/26/19 03/31/19 Rx Chlorthalidone [Hygroton] 25 mg PO DAILY #30 tab 03/26/19 03/31/19 Rx HumaLOG [HumaLOG Vial] 16 units SC TID-WM vial 03/26/19 03/31/19 Rx Insulin Glargine [Lantus Vial] 85 units SC HS #3 vial 03/26/19 03/31/19 Rx Insulin Glargine [Lantus Vial] 85 units SC QAM #3 vial 03/26/19 03/31/19 Rx Methocarbamol [Robaxin] 500 mg PO QIDPRN PRN #30 tab 03/26/19 03/31/19 Rx Escitalopram Oxalate 20 mg PO DAILY 03/31/19 03/31/19 History Amlodipine [Norvasc] 10 mg PO DAILY #30 tab 04/02/19 Rx Aspirin [Ecotrin Low Strength] 81 mg PO DAILY tab 04/02/19 Rx Carvedilol [Coreg] 25 mg PO BID-WM #60 tab 04/02/19 Rx Chlorthalidone [Hygroton] 25 mg PO DAILY #30 tab 04/02/19 Rx Gabapentin [Neurontin] 400 mg PO BID #60 cap 04/02/19 Rx Insulin Glargine,Hum.Rec.Anlog 90 unit SC BID #3 pen 04/02/19 Rx [Lantus Solostar] hydrALAZINE [Apresoline] 50 mg PO TID #90 tab 04/02/19 Rx - History PMHx: DMII, HTN, CKDIV-V, CAD s/p angioplasty, HFpEF (EF 50-55%), GERD, Chronic back pain, restless leg syndrome, Hx CVA w/ R-sided deficits PSHx: C/S x2, L5-S1 discectomy, tonsillectomy FHx: Mother- CAD & DMII, paternal grandparents- DMII Social: Former smoker, with 1 pack q2-3 days since age 17. Quit just over 1 year ago. Sparse EtOH use. No drug use but uses CBD oil for back pain. Lives at home - Review of Systems General: reports: weight/appetite/sleep changes. denies: fever/chills Eyes: reports: vision changes. denies: eye pain ENT: reports: other (denies sore throat). denies: nasal congestion Respiratory: reports: shortness of breath. denies: cough Cardiovascular: reports: chest pain, edema Gastrointestinal: reports: nausea. denies: vomiting, GI bleeding Genitourinary: reports: other (no decreased urine output). denies: dysuria Skin: denies: rashes, lesions Musculoskeletal: reports: pain, arthritis/arthralgias Neurological: denies: numbness, syncope, weakness Psychological: denies: anxiety, depression - Vital signs BP: 157/82, Pulse: 64, Resp: 20, Temp: 97.6 (Oral), Pain: 7, O2 sat: 97 on RA, 108.86kg - Physical Exam Constitutional: NAD, awake, alert and oriented, well developed HEENT: normocephalic and atraumatic, grossly normal vision (wears glasses), grossly normal hearing, MMM Neck: supple, FROM Chest: no lesions, other (+ TTP L>R) Heart: RRR, normal S1/S2, no murmurs/rubs/gallops Lungs: CTAB, no respiratory distress, good air movement Abdomen: soft, non-tender, bowel sounds present Musculoskeletal: normal structure Neurological: normal sensation, other (R eyelid droop 2/2 prior CVA) Skin: no rash/lesions, good turgor Heme/Lymphatic: no unusual bruising or bleeding, no purpura Psychiatric: normal mood and affect, good judgment and insight, intact recent and remote memory FMR H&P: Results - EKG Interpretation EKG: NS at 70bpm, Prolonged QT/QTc 468/505, no ST changes FMR H&P: A/P - Problem List (1) Atypical chest pain Current Visit: Yes Status: Acute Code(s): R07.89 - OTHER CHEST PAIN (2) Acute kidney injury superimposed on CKD Current Visit: Yes Status: Acute Code(s): N17.9 - ACUTE KIDNEY FAILURE, UNSPECIFIED; N18.9 - CHRONIC KIDNEY DISEASE, UNSPECIFIED (3) GERD (gastroesophageal reflux disease) Current Visit: Yes Status: Chronic Code(s): K21.9 - GASTRO-ESOPHAGEAL REFLUX DISEASE WITHOUT ESOPHAGITIS (4) History of stroke Current Visit: Yes Status: Acute Code(s): Z86.73 - PRSNL HX OF TIA (TIA), AND CEREB INFRC W/O RESID DEFICITS (5) Anemia, normocytic normochromic Current Visit: Yes Status: Chronic Code(s): D64.9 - ANEMIA, UNSPECIFIED (6) CAD (coronary artery disease) Current Visit: Yes Status: Chronic Code(s): I25.10 - ATHSCL HEART DISEASE OF [place] CORONARY ARTERY W/O ANG PCTRS Qualifiers: Comment: stable (7) DM type 2 (diabetes mellitus, type 2) Current Visit: Yes Status: Chronic Qualifiers: Comment: continue accuchecks, insulin sliding scale. Start lantus (8) HTN (hypertension) Current Visit: Yes Status: Chronic Code(s): I10 - ESSENTIAL (PRIMARY) HYPERTENSION Qualifiers: Comment: hypertensive urgency has resolved, resume home medications. Mild hypokalemia, discontinue HCTZ (9) Lumbar disc disease with radiculopathy Current Visit: Yes Status: Chronic Code(s): M51.16 - INTERVERTEBRAL DISC DISORDERS W RADICULOPATHY, LUMBAR REGION (10) (HFpEF) heart failure with preserved ejection fraction Current Visit: Yes Status: Acute Code(s): I50.30 - UNSPECIFIED DIASTOLIC ( CONGESTIVE) HEART FAILURE - Plan Atypical Chest Pain, suspected 2/2 muscle strain Initial Trop <.01, EKG NSR with QT prolongation, no ST changes TTP along chest wall, worse on L No need for further risk stratification 1 month ago a1c 5.7, lipid panel total 166, LDL 82, HDL 41, TG 214; TSH 1.4 - tylenol prn, restarted patient's home Tramadol, will consider tinazidine - trending trops - q4 vitals Hypocalcemia Ca 6.5, likely 2/2 Renal Failure - ordered PTH - serum Phos GWEN on CKD Stage 4/5 Cr today 4.65 (last month 3.8), GFR 10 (last month 13) Senior Biostatistician/Group Leader, Dr. Hartley, restarted lasix 01/21, - will consider consulting Dr. Hartley - Renal US ordered - FeNa pending - am CMP, Mg Hypoglycemia 59 at [place], 67 here, asx - hypoglycemia protocol ordered - ACHS glucose checks Acute on Chronic Anemia Hgb 8.6 at [place] - Iron studies, folate, B12 - am CBC DMII a1c 5.7 last month - on humalogue at home, SS - mild SS here - ACHS checks HFpEF EF 50-55%, diastolic d/f BNP 489 80mg lasix given at [place] - will hold lasix for now Hx CVA 2018 - resume home aspirin and statin - heparin DVT PPx Hx HTN 157/82 - resume home hydralazine, coreg and norvasc - q4hr vitals Hx GERD - famotidine 10mg daily (renally dosed) Chronic Back Pain Restless Leg Syndrome L5-S1 discectomy - will resume home tramadol, hold home tizandine for now - PT/OT Hx CAD - resume home statin, aspirin - see above a1c 5.7, lipid panel total 166, LDL 82, HDL 41, TG 214; TSH 1.4 Dispo: Admit tele obs, LOS <48hour PCP: Prihoda DVT PPx: Heparin Code status: Full I have discussed the case with Dr. Torres. FMR H&P: Upper Level - Plan Date/Time: 01/26/20151 I, Suad Uriarte, have evaluated this patient and agree with findings/plan as outlined by university internship resident. Pertinent changes/additions are listed here. 44YOF with a PMH notable for CAD s/p angioplasty, HFpEF, IDDMII, CKDIV-V, and Hx CVA w/ residual R-sided deficits who was transferred from the [place] ER after presenting there for left-sided chest cramping that began @ ~2100 yesterday evening while she was preparing dinner. See university internship noted for further details. Her initial workup in the [place] ER was notable for an elevated BNP of ~489, a serum Ca of 6.5, BG of 55, Hgb of 8.6, BUN/Cr 43/4.65 & eGFR of 10. She was therefore given 324mg ASA, 1g CaCl & 80mg IV Lasix before being transferred to [facility] for higher level of care. On evaluation in the [facility] ED, the patients vitals were WNLs w/ the exception of a mildly elevated SBP of 157/82. On exam she was noted to have a chronic R eyelid droop 2/2 her prior CVA, TTP in her chest (L>R) & ~2+ pitting edema in her B/L LEs up to just below her knees. Her exam was otherwise unremarkable. Regarding her chest pain, very low suspicion for ACS given exam w/ TTP and initial troponin WNLs @ < 0.010 & EKG w/ o ST changes; however, given significant cardiac history will admit to telemetry & trend troponin at least 1 additional time. In meantime will try dose of home tramadol and/or muscle relaxer to assess for improvement with these regimens. Regarding her hypocalcemia, will get a repeat CMP with AM labs to assess for improvement s/p replacement in [place] & start basic workup for possible etiology including a serum PTH and phosphorus level. Suspect it is most likely 2/2 her CKD. Will therefore most likely consult her Senior Biostatistician/Group Leader, Dr. Mynor Hartley, in the AM as well. Regarding her GWEN on CKDIV-V, will order a renal US as patient reports Dr. Hartley ordered this to be done outpatient last week. Will also obtain labs to assess calculate a FeNa and again consider getting nephrology on board. Regarding her hypoglycemia, will hold home insulin for now & order hypoglycemia protocol. Will resume home insulin doing as tolerated. Per chart review patient is well-controlled w/ A1c last month of ~ 5.7. Lastly, regarding her LE edema, suspect it could be 2/2 worsening renal function in combination with HFpEF. S/p 80mg Lasix in [place] as mentioned above. Will continue to monitor & get strict I&Os & QD weights. Regarding her acute on chronic normocytic anemia, again suspect most likely 2/2 CKD but will obtain basic anemia labs including iron studies, B12 & RBC folate. Lastly, regarding her other chronic conditions, will resume home meds once able to reconcile them with her pharmacies in the AM as she did not have a list with her. Will admit to telemetry obs for reasons noted above. Anticipated LOS </=2 days pending clinical course.
[2020-01-26] MEDS ORDERED: Dextrose 5% in Water 1,000 ML IV PRN (02:24)
[2020-01-26] MEDS ORDERED: Dextrose 50% Abboject 50 ML SYRINGE SLOW IVP PRN (02:24)
[2020-01-26 03:26] LABS: Troponin I 0.019 ng/mL (< 0.028)
[2020-01-26 03:43] VITALS: BMI 36.1
[2020-01-26 04:05] LABS: #Basophils 0.1 thou/uL (0.0-0.2); #Eosinphils 0.2 thou/uL (0.0-0.7); #Lymphocytes 2.5 thou/uL (1.20-3.40); #Monocytes 0.6 thou/uL (0.11-0.59); #Neutrophils 7.6 thou/uL (1.40-6.50); %Basophils 0.5 % (0.0-1.0); %Eosinophils 1.6 % (0.0-10.0); %Lymphocytes 22.9 % (21.0-51.0); %Monocytes 5.1 % (0.0-10.0); Hemoglobin 9.6 g/dL (12.0-16.0); Mean Corpuscular HGB CONC 32.1 g/dL (32.0-36.0); Mean Corpuscular Hemoglobin 28.4 pg (27.0-31.0); Mean Corpuscular Volume 88.5 fL (78.0-98.0); Platelet Count 254 thou/uL (130-400); RBC Distribution Width 13.3 % (11.5-14.5); Red Blood Cell (RBC) Count 3.39 mill/uL (4.20-5.40); White Blood Cell (WBC) Count 10.8 thou/uL (4.8-10.8)
[2020-01-26] MEDS: traMADol HCl 50 MG TAB PO PRN ×3 (04:13→20:23)
[2020-01-26 04:28] LABS: ALT (SGPT) 15 U/L (8-55); AST (SGOT) 15 U/L (5-34); Albumin 3.8 g/dL (3.5-5.0); Alkaline Phosphatase 163 U/L (40-110); Anion Gap 15 mmol/L (10-20); BUN (Urea Nitrogen) 45 mg/dL (7.0-18.7); Bilirubin, Total 0.3 mg/dL (0.2-1.2); Calc. Creatinine Clearance 29 mL/min (70-130); Calcium 6.9 mg/dL (7.8-10.44); Carbon Dioxide 19 mmol/L (22-29); Chloride 105 mmol/L (98-107); Estimated GFR-MDRD 11; Globulin 3.4 g/dL (2.4-3.5); Glucose 122 mg/dL (70-105); Iron 29 ug/dL (50-170); Iron Binding Capacity, Total 306 mcg/dL (265-497); Magnesium 1.4 mg/dL (1.6-2.6); Phosphorus 5.9 mg/dL (2.3-4.7); Potassium 4.4 mmol/L (3.5-5.1); Protein, Total 7.2 g/dL (6.0-8.3); Sodium 135 mmol/L (136-145)
[2020-01-26 04:36] LABS: Troponin I 0.031 ng/mL (< 0.028)
[2020-01-26 05:13] LABS: Ferritin 30.23 ng/mL (10-291)
[2020-01-26 05:16] LABS: Creatinine, Urine 27.53 mg/dL (47-110)
[2020-01-26 07:56] LABS: Troponin I 0.022 ng/mL (< 0.028)
--- NOTE | 2020-01-26 07:57 | ULT ---
Bilateral renal ultrasound CLINICAL INDICATION: Renal failure. COMPARISON: Renal sonogram on 09/05/[address] abdomen on 03/18/2014. FINDINGS: Right kidney: There is a hypoechoic cystic structure with posterior acoustic enhancement seen in the medial aspect midportion right kidney. This cystic lesion was seen on prior CT exam in 2013 but is slightly larger in size previously measuring 1.1 cm. This cystic structure measured 1.3 cm on prior u ltrasound examination 2018. This is likely related to mild enlargement of the renal cyst, but internal echogenic material is present which may be related to small amount of hemorrhage or proteina ceous material within the cyst. Depending on patient's renal insufficiency, follow-up CT examination with and without IV contrast is recommended. Right kidney otherwise demonstrates a normal sonographic appearance without hydronephrosis or renal calculus seen. The right kidney measures 9.5 cm x 4.6 cm. Left kidney: There is no evidence of a renal mass, renal calculus, or hydronephrosis. The left kidney measures 9.7 cm x 5.1 cm. Urinary bladder: Incompletely distended but grossly within normal limits for the degree of distention . Ureteral jets are seen bilaterally on color flow evaluation. IMPRESSION: 1. Hypoechoic cystic structure midportion right kidney. This cystic structure was seen on a prior ult rasound examination and [address] exam in 2013. This likely represents mild enlargement of a renal cyst, but internal echogenic material is seen within this cyst, and this could be related to small amount of hemorrhage or increased proteinaceous material. Follow-up CT exam with and without IV contrast is recommended depending on patient's renal insufficiency. 2. No evidence of hydronephrosis.
[2020-01-26] MEDS ORDERED: Famotidine 20 MG TAB PO SCH (09:00)
[2020-01-26] MEDS ORDERED: Prevnar 13-Val Conj/PF 0.5 ML SYRINGE IM ONE (09:30)
[2020-01-26] MEDS: Nitroglycerin 0.4 MG TAB (25 Tab Bottle) PO PRN ×2 (09:43→09:57)
[2020-01-26] MEDS: Heparin 5,000 UNITS/ML VIAL SC SCH ×3 (09:48→20:24)
[2020-01-26] MEDS: hydrALAZINE 25 MG TAB PO SCH ×3 (09:51→20:23)
[2020-01-26] MEDS: Aspirin 81 mg Enteric Coated Tablet PO SCH (09:51)
[2020-01-26] MEDS: Famotidine 20 MG TAB PO SCH (09:51)
[2020-01-26] MEDS: Amlodipine 10 MG TAB PO SCH (09:52)
[2020-01-26] MEDS: Carvedilol 25 MG TAB PO SCH ×2 (09:52→17:27)
[2020-01-26] MEDS ORDERED: hydrOXYzine 25 MG TAB PO PRN (09:58)
[2020-01-26 11:03] LABS: CKMB 3.6 ng/mL (0-6.6)
[2020-01-26] MEDS: HumaLOG 300 UNITS/3 ML VIAL SC PRN (11:15)
--- NOTE | 2020-01-26 12:15 | PRG ---
DATE OF SERVICE: 01/26/2020 Ms. Goldman is an unfortunate 44-year-old white female patient with a history of stroke and coronary artery disease. She presented with some atypical chest pain, which was described as a sharp, left-sided positional pain, unassociated with physical exertion or nausea. Because of her multiple risk factors, she was admitted to trend her troponins. So far, they are negative. She is currently chest pain free and it definitely seems to be musculoskeletal in origin. We will gather one more troponins or two and if these are normal, she can be discharged for followup as an outpatient. Job ID: [id number]
[2020-01-26] MEDS ORDERED: Metolazone 2.5 MG TAB PO SCH (12:30)
[2020-01-26 12:40] LABS: SARS-CoV-2 MS2 Positive; SARS-CoV-2 N Gene Negative; SARS-CoV-2 S Gene Negative; SARS-CoV-2 by NAA Not Detected (NotDetected); SARS-CoV-2 orf1ab Negative
--- NOTE | 2020-01-26 12:44 | PRG ---
Consult dictated as well DATE OF SERVICE: 01/26/2020 SUBJECTIVE: A 44-year-old female, being seen for acute kidney injury. The patient denies any nausea, vomiting, or chest pain. OBJECTIVE: General: The patient is awake and alert. Vital Signs: Afebrile, pulse 75, breathing 16, blood pressure 162/76. HEENT: Head normocephalic and atraumatic. Eyes intact, no ulcers. Nose intact , no ulcers. Ears intact, no ulcers. Neck: Supple. No JVD. Chest: Symmetrical and clear. Cardiovascular: Shows S1 and S2, no rub, no murmur. Gastrointestinal: Abdomen is soft, bowel sounds positive. Extremities: Lower extremity shows 4+ edema. Skin: Shows no rash or petechiae. Musculoskeletal: Shows no joint swelling or stiffness. Genitourinary: Shows no Sutherland or CVA tenderness. Neurologic: Motor intact. Cranial nerves intact. LABORATORY DATA: Reviewed. ASSESSMENT AND PLAN: 1. Acute kidney injury with chronic kidney disease, stage 5. We will start metolazone. 2. Hypertension. Start Lasix. 3. Anemia, stable. 4. Medication based on GFR appropriate. No urgent indication for dialysis. We will follow renal function closely. Job ID: [id number] MTDD
[2020-01-26] MEDS: Furosemide 40 MG/4 ML VIAL SLOW IVP SCH (13:11)
[2020-01-26] MEDS: Atorvastatin Calcium 40 MG TAB PO SCH (20:23)
[2020-01-26] MEDS: Gabapentin 300 MG CAP PO SCH (20:23)
[2020-01-26] MEDS: Cyclobenzaprine 10 MG TAB PO PRN (20:36)
[2020-01-26] MEDS: diphenhydrAMINE 25 MG CAP PO PRN (21:52)
[2020-01-27 05:14] LABS: #Eosinphils 0.1 thou/uL (0.0-0.7); #Lymphocytes 1.9 thou/uL (1.20-3.40); #Monocytes 0.5 thou/uL (0.11-0.59); #Neutrophils 5.8 thou/uL (1.40-6.50); %Basophils 0.1 % (0.0-1.0); %Eosinophils 0.8 % (0.0-10.0); %Lymphocytes 22.6 % (21.0-51.0); %Monocytes 5.5 % (0.0-10.0); %Neutrophils 71.1 % (42.0-75.0); Hemoglobin 8.5 g/dL (12.0-16.0); Mean Corpuscular HGB CONC 31.4 g/dL (32.0-36.0); Mean Corpuscular Hemoglobin 27.7 pg (27.0-31.0); Mean Corpuscular Volume 88.2 fL (78.0-98.0); Mean Platelet Volume 9.2 fL (7.4-10.4); Platelet Count 231 thou/uL (130-400); RBC Distribution Width 13.3 % (11.5-14.5); Red Blood Cell (RBC) Count 3.08 mill/uL (4.20-5.40); White Blood Cell (WBC) Count 8.2 thou/uL (4.8-10.8)
[2020-01-27 05:33] LABS: Anion Gap 15 mmol/L (10-20); BUN (Urea Nitrogen) 49 mg/dL (7.0-18.7); Calc. Creatinine Clearance 30 mL/min (70-130); Calcium 6.1 mg/dL (7.8-10.44); Carbon Dioxide 18 mmol/L (22-29); Chloride 105 mmol/L (98-107); Estimated GFR-MDRD 11; Glucose 174 mg/dL (70-105); Sodium 134 mmol/L (136-145)
--- NOTE | 2020-01-27 05:54 | PDOC.FM ---
- Subjective Subjective: Patient reports improvement of her lower extremity edema. No chest pain since yesterday morning. She denies SOB and sweating. 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 - Objective MAR Reviewed: Yes Vital Signs & Weight: Vital Signs (12 hours) Temp Pulse Resp BP Pulse Ox 01/27/20 03:59 97.7 F 73 18 143/70 H 96 01/26/20 23:27 98.3 F 70 16 131/67 95 01/26/20 20:23 69 01/26/20 19:44 97.3 F L 69 18 149/72 H 96 Weight Weight 119.975 kg I&O: 01/25/20 01/26/20 01/27/20 06:59 06:59 06:59 Intake Total 600 1140 Balance 600 1140 Result Diagrams: 01/27/20 04:59 01/27/20 04:59 Phys Exam - Physical Examination Constitutional: NAD HEENT: moist MMs, sclera anicteric Neck: supple, full ROM Respiratory: no wheezing, clear to auscultation bilateral Cardiovascular: RRR, no significant murmur Gastrointestinal: soft, positive bowel sounds Musculoskeletal: pulses present, edema present 2+ pitting edema Neurological: moves all 4 limbs Chronic right eye droop Lymphatic: no nodes Psychiatric: normal affect, A&O x 3 Skin: no rash, normal turgor Dx/Plan - Plan Plan: 1. Atypical chest pain, likely musculoskeletal in origin Patient reports chest "cramps" that worsen with inspiration and relieved by placing pressure on the chest wall. TTP along chest wall. Trop was trended and stable (<0.01 -> 0.019 -> 0.031 -> 0.022 -> 0.033). Initial EKG and repeat showed QT prolongation with no ST changes. Patient chronically takes pain medication and muscle relaxers. -Pain control with home Tylenol PRN and Tramadol PRN -Q4 vitals 2. GWEN on CKD, stage 5 Creatinine 4.65 on admission, now 4.50. Patient's film and video editor, Dr. Hartley, was consulted. Renal US completed and showed hypoechoic cystic structure in R kidney , no hydronephrosis. Edema has improved today. -Continue Lasix and metolazone per Dr. Hartley -Daily BMP 3. Hypocalcemia 2/2 renal failure Ca 6.5 on arrival. PTH 391.6. Received 1g CaCl in [place] prior to arrival. Now 6.1. -Daily BMP 4. Acute on Chronic Anemia Likely due to CKD. Hgb 8.6 at [place]. Now 8.5. Vitamin B12 WNL. -Daily CBC 5. DMII a1c 5.7 last month. Has not taken Lantus in 1 month due to costs. -Hold Lantus -Continue humalog SS 6. HFpEF EF 50-55%, diastolic d/f. BNP 489. -Continue Lasix 7. Hx CVA 2018 - Continue home aspirin and statin - heparin DVT PPx 8. Hx HTN Bp stable. - Continue home meds 9. Hx GERD -Continue home meds 10. Chronic Back Pain 11. Restless Leg Syndrome Hx L5-S1 discectomy. -Continue home medications -Holding home tizandine due to QT prolongation risk -PT/OT consulted 12. Hx CAD -Continue home meds 13. Vitamin D Deficiency Vitamin D was 4.5. -No supplementation at this time due to elevated phosphate level PCP: Anni DVT PPx: Heparin Code status: Full Dispo: Home pending improvement of GWEN
--- NOTE | 2020-01-27 06:42 | CON ---
DATE OF CONSULTATION: REASON FOR CONSULTATION: Acute renal failure, stage 5 chronic kidney disease. HISTORY OF PRESENT ILLNESS: This is a 44-year-old female, who presented to the hospital with worsening creatinine and chest pain. The patient's creatinine peaked to 4.6 and the patient had significant edema. The patient denies chest pain or orthopnea. PAST MEDICAL HISTORY: Hypertension, history of chronic kidney disease, angioplasty, EF 50%, chronic back pain, restless legs syndrome, CVA, history of , diskectomy, and tonsillectomy. FAMILY HISTORY: Negative for ESRD. ALLERGIES: REVIEWED. MEDICATIONS: Home medications list reviewed. Hospital medications list reviewed. REVIEW OF SYSTEMS: Fifteen-point review of system was performed, negative except for positives noted above. HEENT: Eyes intact, no diplopia. Ears: No hearing loss or earache. Nose: No discharge or bleeding. CHEST: No cough or phlegm. ABDOMEN: No nausea or vomiting. GENITOURINARY: No hematuria. No Sutherland catheter. MUSCULOSKELETAL: No low back pain. No joint swelling or pain. NEUROLOGICAL: No syncope. No seizures. SKIN: No complaints of rash or itching. PSYCHIATRIC: No depression. CONSTITUTIONAL: No weight loss or loss of appetite. PHYSICAL EXAMINATION: GENERAL: The patient is awake and alert. VITAL SIGNS: Afebrile, pulse 75, breathing at 16, and blood pressure 162/76. HEENT: Head normocephalic and atraumatic. Eyes intact, no ulcers. Nose intact, no ulcers. Ears intact, no ulcers. NECK: Supple. No JVD. CHEST: Symmetrical and clear. CARDIOVASCULAR: Shows S1 and S2, no rub, no murmur. GASTROINTESTINAL: Abdomen is soft, bowel sounds positive. EXTREMITIES: Show no edema or ulcers. SKIN: Shows no rash or petechiae. MUSCULOSKELETAL: Shows no joint swelling or stiffness. GENITOURINARY: Shows no Sutherland or CVA tenderness. NEUROLOGIC: Motor intact. Cranial nerves intact. LABORATORY DATA: Reviewed. ASSESSMENT AND PLAN: 1. Stage 5 chronic kidney disease with significant edema. Start metolazone and Lasix IV. 2. Anemia, stable. 3. Medications based on GFR are appropriate. No indication for dialysis yet. Job ID: [id number]
[2020-01-27] MEDS: Furosemide 40 MG/4 ML VIAL SLOW IVP SCH ×2 (06:58→14:27)
[2020-01-27] MEDS: Heparin 5,000 UNITS/ML VIAL SC SCH ×3 (09:04→21:46)
[2020-01-27] MEDS: hydrALAZINE 25 MG TAB PO SCH ×3 (09:05→21:47)
[2020-01-27] MEDS: Amlodipine 10 MG TAB PO SCH (09:05)
[2020-01-27] MEDS: Aspirin 81 mg Enteric Coated Tablet PO SCH (09:05)
[2020-01-27] MEDS: Carvedilol 25 MG TAB PO SCH ×2 (09:05→16:49)
[2020-01-27] MEDS: Famotidine 20 MG TAB PO SCH (09:05)
[2020-01-27] MEDS: Gabapentin 300 MG CAP PO SCH ×3 (09:05→21:47)
[2020-01-27] MEDS: diphenhydrAMINE 25 MG CAP PO PRN (09:09)
[2020-01-27] MEDS: traMADol HCl 50 MG TAB PO PRN ×3 (09:09→22:29)
[2020-01-27 09:43] LABS: Phosphorus 5.9 mg/dL (2.3-4.7)
[2020-01-27] MEDS ORDERED: HYDROcodone/Acetaminophen 5/325 mg Tablet PO SCH (10:30)
[2020-01-27] MEDS ORDERED: Metolazone 5 MG TAB PO SCH (10:30)
--- NOTE | 2020-01-27 11:11 | PRG ---
DATE OF SERVICE: 01/27/2020 SUBJECTIVE: A 44-year-old female, being seen for acute kidney injury. The patient denies any nausea, vomiting, or chest pain. The patient does have bilateral lower extremity swelling. OBJECTIVE: General: The patient is awake and alert. Vital Signs: Afebrile, pulse 75, breathing 16, blood pressure 145/77. HEENT: Head normocephalic and atraumatic. Eyes intact, no ulcers. Nose intact, no ulcers. Ears intact, no ulcers. Neck: Supple. No JVD. Chest: Symmetrical and clear. Cardiovascular: Shows S1 and S2, no rub, no murmur. Gastrointestinal: Abdomen is soft, bowel sounds positive. Extremities: Lower extremity shows 4+ edema. Skin: Shows no rash or petechiae. Musculoskeletal: Shows no joint swelling or stiffness. Genitourinary: Shows no Sutherland or CVA tenderness. Neurologic: Motor intact. Cranial nerves intact. LABORATORY DATA: Reviewed. ASSESSMENT AND PLAN: 1. Chronic kidney disease, stage 4. Continue diuresis. We will give 5 mg of Zaroxolyn today. 2. Anemia, stable. 3. Hypertension. 4. Medication based on GFR appropriate. 5. We will observe for one more day to evaluate need for dialysis. Job ID: [id number]
[2020-01-27] MEDS: HumaLOG 300 UNITS/3 ML VIAL SC PRN ×2 (12:02→16:49)
--- NOTE | 2020-01-27 12:41 | PRG ---
DATE OF SERVICE: 01/27/2020 Ms. Goldman is resting quietly. Her main complaint is back pain. We discussed her case with Dr. Hartley and he would like to keep her one more day and increase her dose of Lasix and metolazone. We will re-evaluate in the morning in hopes of discharging her at that time. Job ID: [id number]
[2020-01-27] MEDS ORDERED: Ergocalciferol 1.25 MG(50,000 UNITS) CAP PO SCH (13:00)
[2020-01-27 13:55] LABS: Amphetamine Not Detected (NotDetected); Barbiturates Screen Not Detected (NotDetected); Benzodiazepine Screen Not Detected (NotDetected); Cocaine Metabolite Screen Not Detected (NotDetected); Medtox Control Line Valid? VALID (VALID); Medtox Reader # READER 4; Methadone Not Detected (NotDetected); Methamphetamine Not Detected (NotDetected); Opiate Screen Not Detected (NotDetected); Oxycodone Screen Not Detected (NotDetected); Phencyclidine (PCP) Not Detected (NotDetected); THC/Cannabinoid Screen Not Detected (NotDetected); Tricyclic Screen Not Detected (NotDetected)
[2020-01-27 16:39] LABS: Hematocrit 27.6 % (34.0-46.6); RBC Folate Test Component 1152 ng/mL (>498)
[2020-01-27] MEDS: Cyclobenzaprine 10 MG TAB PO PRN (21:46)
[2020-01-27] MEDS: Acetaminophen 325 MG TAB PO PRN (21:46)
[2020-01-27] MEDS: Atorvastatin Calcium 40 MG TAB PO SCH (21:47)
[2020-01-27] MEDS ORDERED: Calcium Carbonate 500 MG ChewTAB PO PRN (22:12)
[2020-01-28] MEDS: Cyclobenzaprine 10 MG TAB PO PRN (00:58)
[2020-01-28] MEDS: diphenhydrAMINE 25 MG CAP PO PRN (03:18)
[2020-01-28] MEDS: Furosemide 40 MG/4 ML VIAL SLOW IVP SCH ×2 (05:19→14:52)
[2020-01-28] MEDS: traMADol HCl 50 MG TAB PO PRN ×2 (05:30→14:50)
--- NOTE | 2020-01-28 06:23 | PDOC.FM ---
- Subjective Subjective: Patient states she is ready to go home. She reports improvement of her bilateral lower extremity edema, noting she can now raise her legs. She denies headache, vision changes, chest pain, SOB, and abdominal pain. She notes mild back pain but notes that it is unchanged from baseline. - Objective MAR Reviewed: Yes Vital Signs & Weight: Vital Signs (12 hours) Temp Pulse Resp BP BP BP Pulse Ox 01/28/20 03:19 97.4 F L 69 20 150/71 H 96 01/28/20 00:00 97.3 F L 70 20 151/76 H 97 01/27/20 21:47 72 159/77 H 01/27/20 19:00 97.6 F 72 15 136/72 97 Weight Weight 115.666 kg I&O: 01/26/20 01/27/20 01/28/20 06:59 06:59 06:59 Intake Total 600 1740 990 Output Total 4300 Balance 600 1740 -3310 Result Diagrams: 01/27/20 04:59 01/28/20 06:29 Phys Exam - Physical Examination Constitutional: NAD HEENT: moist MMs, sclera anicteric Neck: supple, full ROM Respiratory: no wheezing, clear to auscultation bilateral Cardiovascular: RRR, no significant murmur Gastrointestinal: soft, positive bowel sounds Musculoskeletal: pulses present, edema present 2+ pitting edema Neurological: moves all 4 limbs Chronic right eye droop Lymphatic: no nodes Psychiatric: normal affect, A&O x 3 Skin: no rash, normal turgor Dx/Plan - Plan Plan: 1. Atypical chest pain, likely musculoskeletal in origin Patient reports chest "cramps" that worsen with inspiration and relieved by placing pressure on the chest wall. TTP along chest wall. Trop was trended and stable (<0.01 -> 0.019 -> 0.031 -> 0.022 -> 0.033). Initial EKG and repeat showed QT prolongation with no ST changes. Patient chronically takes pain medication and muscle relaxers. -Pain control with home Tylenol PRN and Tramadol PRN -Q4 vitals 2. GWEN on CKD, stage 5 Creatinine 4.65 on admission, now 4.50. Patient's studio technician video operator, Dr. Hartley, was consulted. Renal US completed and showed hypoechoic cystic structure in R kidney , no hydronephrosis. Edema has improved today. -Continue Lasix 40mg BID -Zaroxlyn 5mg for the next 4 days, then every M// per Dr. Hartley -Daily BMP 3. Hypocalcemia 2/2 renal failure Ca 6.5 on arrival. PTH 391.6. Received 1g CaCl in [place] prior to arrival. Now 6.1. -Daily BMP 4. Acute on Chronic Anemia Likely due to CKD. Hgb 8.6 at [place]. Now 8.5. Vitamin B12 WNL. -Monitor 5. DMII a1c 5.7 last month. Has not taken Lantus in 1 month due to costs. -Hold Lantus -Continue humalog SS 6. HFpEF EF 50-55%, diastolic d/f. BNP 489. -Continue Lasix 7. Hx CVA 2018 - Continue home aspirin and statin - heparin DVT PPx 8. Hx HTN Bp elevated 150s/70s. - Continue home meds - Increase hydralazine 50mg TID to 100mg TID 9. Hx GERD -Continue home meds 10. Chronic Back Pain 11. Restless Leg Syndrome Hx L5-S1 discectomy. -Continue home medications -Holding home tizandine due to QT prolongation risk -PT/OT consulted 12. Hx CAD -Continue home meds 13. Vitamin D Deficiency Vitamin D was 4.5. -One time dose of 50,000 Vit D3 administered 01/26 14. History of cocaine use Patient reports last use was 3 years ago. UDS negative. -Encourage continued abstinence PCP: Prihosheila DVT PPx: Heparin Code status: Full Dispo: Stable for discharge home today
[2020-01-28 07:13] LABS: Anion Gap 13 mmol/L (10-20); BUN (Urea Nitrogen) 57 mg/dL (7.0-18.7); Calc. Creatinine Clearance 28 mL/min (70-130); Calcium 6.4 mg/dL (7.8-10.44); Carbon Dioxide 22 mmol/L (22-29); Chloride 103 mmol/L (98-107); Estimated GFR-MDRD 10; Glucose 131 mg/dL (70-105); Potassium 4.1 mmol/L (3.5-5.1); Sodium 134 mmol/L (136-145)
[2020-01-28 07:44] VITALS: TEMP 98.2
[2020-01-28] MEDS: Aspirin 81 mg Enteric Coated Tablet PO SCH (08:36)
[2020-01-28] MEDS: hydrALAZINE 25 MG TAB PO SCH (08:36)
[2020-01-28] MEDS: Gabapentin 300 MG CAP PO SCH ×2 (08:36→14:52)
[2020-01-28] MEDS: Amlodipine 10 MG TAB PO SCH (08:38)
[2020-01-28] MEDS: Heparin 5,000 UNITS/ML VIAL SC SCH ×2 (08:38→14:52)
[2020-01-28] MEDS: Carvedilol 25 MG TAB PO SCH (08:38)
[2020-01-28] MEDS: Acetaminophen 325 MG TAB PO PRN (08:40)
[2020-01-28] MEDS ORDERED: Metolazone 5 MG TAB PO SCH (10:45)
[2020-01-28 11:06] LABS: Bacteria/HPF None Seen HPF (None Seen); RBC/HPF 0-3 HPF (0-3); Squamous Epithelial 0-3 HPF (0-3); WBC/HPF 0-3 HPF (0-3)
--- NOTE | 2020-01-28 11:07 | PRG ---
DATE OF SERVICE: SUBJECTIVE: A 44-year-old female, being seen for stage 5 chronic kidney disease. The patient denies any nausea, vomiting, chest pain, or leg swelling. OBJECTIVE: GENERAL: The patient is awake and alert. VITAL SIGNS: Afebrile, pulse 69, breathing 16, blood pressure . HEENT: Head normocephalic and atraumatic. Eyes intact, no ulcers. Nose intact, no ulcers. Ears intact, no ulcers. Neck: Supple. No JVD. Chest: Symmetrical and clear. Cardiovascular: Shows S1 and S2, no rub, no murmur. Gastrointestinal: Abdomen is soft, bowel sounds positive. Extremities: Show no edema or ulcers. Lower extremities show 3+ edema. Skin: Shows no rash or petechiae. Musculoskeletal: Shows no joint swelling or stiffness. Genitourinary: Shows no Sutherland or CVA tenderness. Neurologic: Motor intact. Cranial nerves intact. LABORATORY DATA: Reviewed. ASSESSMENT AND PLAN: 1. Chronic kidney disease, stage 5. No urgent indication for dialysis. I offered the patient's preemptive access evaluation; the patient has declined. We will refer to Dr. Amezcua as an outpatient. 2. Anemia. We will follow hemoglobin. We will need Epogen. 3. Edema. Take metolazone every day for 4 days and then 5 mg Sunday, Sunday, Sunday. Continue Lasix 3 times a day. The patient will also need preemptive kidney transplantation and appropriate referral had been made and the patient has been educated. Medication based on GFR appropriate. Job ID: [id number]
[2020-01-28 11:49] VITALS: BP 101/50
--- NOTE | 2020-01-28 12:46 | PRG ---
DATE OF SERVICE: 01/28/2020 Ms. Goldman looks and feels much better. She still has some peripheral edema and adjustments are being made in her dosages of Lasix and Zaroxolyn. She is nearing time for discharge and further management of her blood pressure can take place as an outpatient. Job ID: [id number]
[2020-01-28] MEDS: HumaLOG 300 UNITS/3 ML VIAL SC PRN (14:50)
[2020-01-28] MEDS ORDERED: hydrALAZINE 25 MG TAB PO SCH ×2 (15:00)
--- NOTE | 2020-01-29 08:32 | PQF ---
Dear : Lit Michele Date : 01/29/20 Please exercise your independent, professional judgment in responding to the clarification form. Clinical indicators are provided on the bottom of this form for your review Can you please further clarify the acuity of diastolic CHF? Please check appropriate box(es): HEART FAILURE: [ ] Acute diastolic CHF [ ] Acute on chronic diastolic CHF [ ] Chronic diastolic CHF [ ] Other diagnosis [ ] Unable to determine In addition, please specify: Present on Admission (POA): [ ] Yes [ ] No [ ] Unable to determine Physician Signature: Lit Torres MD Date/Time: For continuity of documentation, please document condition throughout progress notes and discharge summary. Thank You. To be completed by CDI/Coding staff for physician review: Present Clinical Indicators - Signs / Symptoms / Labs Results and Location in Medical Record [ x ] + increased edema in her leg and weight gain H and P pg.1 [ x ] HFpEF Family PN pg.3 [ x ] EF 50-55% Family PN pg.3 [ x ] diastolic d/f, BNP 489 Family PN pg.3 [ x ] She still has same peripheral edema and adjustment are being made in her dosages of Lasix and Zaroxolyn PN pg.1 01/27 [ x ] reports dyspnea H and P pg.1 Present Risk Factors Results and Location in Medical Record [ x ] CKD5 H and P pg.2 [ x ] CAD H and P pg.2 [ x ] HTN H and P pg.2 [ x ] DM2 H and P pg.2 [ x ] Former smoker H and P pg.2 [ x ] Hx of CVA H and P pg.2 Present Treatments Results and Location in Medical Record [ x ] IV fluids MAR [ x ] EKG ED Provider [ x ] Furosemide Lasix 40mg IV MAR CDS/Sales Clerk Food Signature: Clifton Robles Phone #: ext [phone] Date: 01/29/20 MARIANA
--- NOTE | 2020-01-30 10:28 | DIS ---
DATE OF ADMISSION: 01/26/2020 DATE OF DISCHARGE: 01/28/2020 PRIMARY CARE PHYSICIAN: José Hutton MD RESIDENT: Aleena King MD ADMITTING ATTENDING: Marimar Palomares MD DISCHARGE ATTENDING: Lit Torres MD CONSULTS: Dr. Hartley (Handling Tech). PROCEDURES: None. PRIMARY DIAGNOSIS: Atypical chest pain, likely musculoskeletal. SECONDARY DIAGNOSES: Acute kidney injury on chronic kidney injury stage 5, hypocalcemia secondary to renal failure, acute on chronic anemia, type 2 diabetes, heart failure with preserved ejection fraction, history of cerebrovascular accident, hypertension, gastroesophageal reflux disease, chronic back pain, restless legs syndrome, CAD, vitamin D deficiency, and history of cocaine use. DISCHARGE MEDICATIONS: 1. Tramadol 100 mg p.o. q.6 hr p.r.n. 2. Escitalopram oxalate 20 mg p.o. daily. 3. Nexium 24-hour 20 mg p.o. daily. 4. Lasix 80 mg p.o. t.i.d. 5. Gabapentin 300 mg p.o. t.i.d. 6. Isosorbide mononitrate ER 30 mg p.o. daily. 7. Trazodone HCL 50 mg p.o. at bedtime p.r.n. 8. Amlodipine 10 mg p.o. daily. 9. Aspirin 81 mg p.o. daily. 10. Atorvastatin 80 mg p.o. at bedtime. 11. Carvedilol 25 mg p.o. b.i.d. 12. Flexeril 100 mg p.o. t.i.d. p.r.n. for 14 days. 13. Hydralazine 100 mg p.o. t.i.d. 14. Zaroxolyn 5 mg p.o. daily for 4 days, then 1 tablet every Sunday, Sunday , and Sunday. DISCONTINUED MEDICATIONS: 1. Tizanidine 4 mg p.o. t.i.d. 2. Hydralazine 25 mg t.i.d. HISTORY OF PRESENT ILLNESS: The patient is a 44-year-old female who presented to the ED with complaints of chest cramps that worsened with inspiration and relieved by placing pressure on the chest wall. Troponin was trended and remained stable at less than 0.01, then 0.019, then 0.031, then 0.022. EKG was done in the ED, then repeated on the floor, both showed QT prolongation with no ST changes. The patient reported improvement of her chest pain and by the end of admission was no longer reporting chest pain. In the ED, the patient was noted to have a creatinine of 4.65, which was elevated from baseline. The patient's tea and spice supervisor Dr. Hartley, was consulted. A renal ultrasound was completed and showed a hypoechoic cystic structure in the right kidney without hydronephrosis. The patient was noted to have worsening edema. It was initially 4+ pitting edema, but improved to 2+ pitting edema after Lasix 40 mg b.i.d. IV was began. The patient was started on zaroxolyn 5 mg daily. During admission, she was noted to have episodes of hypoglycemia. She reported not taking her Lantus for 1 month due to cost. Therefore, Lantus was held during the admission. The patient's blood pressures were elevated during admission at 150s systolic. Her home dose of hydralazine 50 mg t.i.d. was increased to 100 mg t.i.d. The patient was also noted to have a vitamin D deficiency and was given a 1 time dose of 50,000 vitamin D3. Due to concerns of the prolonged QT noted on EKG, the patient's home dose of tizanidine was held during admission. She was prescribed Flexeril instead and reported improvement of her pain with this medication. She will be discharged home on 2 weeks worth of Flexeril p.r.n. The patient was deemed stable for discharge on 01/28/2020. She will continue taking the zaroxolyn 5 mg for the next 4 days, then every Sunday, Sunday, and Sunday. She will also continue taking Lasix 80 mg t.i.d. She will follow up with her PCP, Dr. Hutton within 3 to 5 days. She will also follow up outpatient with Dr. Hartley. DISPOSITION: Stable. DISCHARGE INSTRUCTIONS: Location, home. Diet, heart healthy and diabetic diet with fluid restriction. Activity, as tolerated. Follow up with Dr. Hutton ( PCP) within 3 to 5 days. Job ID: [id number] MTDD
== END 2020-01-28 15:21 | disposition home or self-care (01) | DRG 683 ==
LOC: ERS 00:16 → OBSVTOIN 01:49 → 2SE 01:49
PROVIDERS: ADMIT Internal Medicine; ATTEND Student in an Organized Health Care Education/Training Program
DX: N17.9 Acute kidney failure, unspecified (principal); I69.351 Hemiplegia and hemiparesis following cerebral infarction affecting right dominant side; I50.32 Chronic diastolic (congestive) heart failure; I13.2 Hypertensive heart and chronic kidney disease with heart failure and with stage 5 chronic kidney disease, or end stage renal disease; Z20.828 Contact with and (suspected) exposure to other viral communicable diseases; N18.5 Chronic kidney disease, stage 5; I25.10 Atherosclerotic heart disease of native coronary artery without angina pectoris; K21.9 Gastro-esophageal reflux disease without esophagitis; G25.81 Restless legs syndrome; E11.22 Type 2 diabetes mellitus with diabetic chronic kidney disease; E83.51 Hypocalcemia; R07.89 Other chest pain; D63.1 Anemia in chronic kidney disease; M51.16 Intervertebral disc disorders with radiculopathy, lumbar region; E55.9 Vitamin D deficiency, unspecified; N28.1 Cyst of kidney, acquired; E11.649 Type 2 diabetes mellitus with hypoglycemia without coma; Z98.51 Tubal ligation status; Z88.1 Allergy status to other antibiotic agents; Z79.4 Long term (current) use of insulin; I25.2 Old myocardial infarction; Z79.899 Other long term (current) drug therapy; Z87.891 Personal history of nicotine dependence
CPT/HCPCS: 36415; 36416; 76770; 80048; 80053; 80306; 81015; 82306; 82553; 82570; 82607; 82728; 82747; 83540; 83550; 83735; 83970; 84100; 84300; 84484; 85014; 85025; 87635; 90471; 90670; 93005; 93010; 94760; 96374; 96376; 99285; G0009; G0378; J1644; J1940; Q0163; U0003

== ENCOUNTER 2020-02-03 14:14 | Outpatient (CLI) | payer MEDICARE ==
--- NOTE | 2020-02-03 15:14 | RAD ---
LUMBAR SPINE: 02/03/20 Four views. Lateral views were obtained with neutral flexion and extension. An AP view obtained. INDICATIONS: Low back pain. Lumbar vertebrae maintain normal height and alignment. There is loss of disc space with degenerative disc and end plate changes at L4-5 and at L5-S1 level. No evidence of spondylolisthesis. Mild facet h ypertrophy at L4-5 and L5-S1. IMPRESSION: Degenerative disc changes noted at L4-5 and L5-S1 with loss of disc space. Posterior hypertrophic albert nges are noted at these levels. POS: AGW
--- NOTE | 2020-02-03 15:52 | MRI ---
LUMBAR SPINE MRI WITHOUT CONTRAST: DATE: 02/03/2020. COMPARISON: 09/04/2017. HISTORY: Lumbar radiculopathy, lumbar stenosis with neurogenic claudication. TECHNIQUE: Multiplanar, multisequence MR imaging of the lumbar spine is provided without contrast. FINDINGS: The sagittal STIR imaging demonstrates increased signal intensity within the L4-5 intervertebral disk space. There is also mild increased STIR signal within the adjacent L5 and S1 vertebral bodies. Th ere is linear increased STIR signal anterior to the L4 and L5 vertebral bodies as well as anterior to the L4-5 and L5-S1 intervertebral disk space. There is also mild linear increased STIR signal invol ving the soft tissues anterior to the S1 vertebral body. On the basis of 5 lumbar-type vertebral bodies, the conus medullaris terminates at T12. T12-L1: Intervertebral disk height and signal intensity within normal limits with no central canal o r neural foraminal stenosis. L1-2: Intervertebral disk height and signal intensity within normal limits with no central canal or neural foraminal stenosis. L2-3: Intervertebral disk height and signal intensity within normal limits with no significant centr al canal or neural foraminal stenosis. L3-4: Intervertebral disk height and signal intensity within normal limits with no significant or ne ural foraminal stenosis. L4-5: Bilateral facet hypertrophy with hypertrophy of the ligamentum flavum. There is disk space na rrowing with disk desiccation and disk bulge. There is a subtle small area of abnormal signal intens ity in the anterior epidural space centrally as well as to the right and to the left of midline. Thi s may represent extruded disk material. This results in a mild degree of central canal stenosis at t he L4-5 level. Of note, on the prior examination there was a prominent left paracentral disk extrusi on with inferior migration which is definitely less conspicuous than on the prior examination. There may be a mild residual degree of extruded disk material with inferior migration in the left paracent ral region. On the basis of bilateral facet hypertrophy, there is mild/moderate bilateral neural for aminal stenosis. L5-S1: There is disk space narrowing with disk desiccation and disk bulge. Bilateral facet hypertro phy is present. Mild bilateral neural foraminal stenosis. Mild central canal stenosis. The visualized retroperitoneal structures demonstrate no acute findings. Multiple mildly prominent r etroperitoneal nodes are present. IMPRESSION: Edematous change centered at the L4-5 disk space with fluid within the intervertebral disk and adjace nt osseous structures as well as fluid signal intensity within the anterior prevertebral soft tissues . These findings are suspicious for diskitis/osteomyelitis in the proper clinical setting. Correlat ion with laboratory assessment recommended. Advanced degenerative change with associated inflammatio n and granulation tissue is a possibility. Degenerative changes as detailed above as well. Results were discussed with Dr. Palencia at 3:40 p.m. 02/03/2020. CODE CR
== END 2020-02-03 14:15 | disposition home or self-care (01) ==
LOC: SCSMRI 14:14
PROVIDERS: ATTEND Surgery
DX: M47.26 Other spondylosis with radiculopathy, lumbar region (principal); M47.27 Other spondylosis with radiculopathy, lumbosacral region; M48.062 Spinal stenosis, lumbar region with neurogenic claudication
CPT/HCPCS: 72120; 72148

== ENCOUNTER 2020-04-14 14:55 | Inpatient (IN) | payer MEDICARE, OTHER ==
--- NOTE | 2020-04-14 15:41 | CT ---
Exam: Head CT without contrast HISTORY: Altered mental status. Difficulty concentrating x2 weeks. Balance issues. COMPARISON: 03/31/2019 FINDINGS: Hemorrhage: No intraparenchymal hemorrhage or extra-axial hematoma. Brain parenchyma: Cortical conn-white matter differentiation is preserved. No mass effect or midline shift. Basilar cisterns are patent.Stable encephalomalacia and gliosis involving the right cerebellar hemisphere. Ventricular system: Ventricles and sulci are patent and symmetric. Calvarium: Intact. Sinuses and mastoid air cells: Adequate aeration. IMPRESSION: No acute intracranial process.
--- NOTE | 2020-04-14 15:59 | RAD ---
XR Chest 1 View Portable HISTORY: Cough COMPARISON: 01/25/2020 FINDINGS: The heart size is normal. The lungs are well expanded without focal areas of consolidation, pneumothorax or pleural effusions. IMPRESSION: No radiographic evidence of acute cardiopulmonary process.
[2020-04-14 16:15] LABS: #Basophils 0.1 thou/uL (0.0-0.2); #Eosinphils 0.1 thou/uL (0.0-0.7); #Lymphocytes 1.8 thou/uL (1.20-3.40); #Monocytes 0.4 thou/uL (0.11-0.59); #Neutrophils 8.4 thou/uL (1.40-6.50); %Basophils 0.5 % (0.0-1.0); %Eosinophils 0.6 % (0.0-10.0); %Lymphocytes 16.6 % (21.0-51.0); %Monocytes 3.5 % (0.0-10.0); %Neutrophils 78.9 % (42.0-75.0); Hemoglobin 10.7 g/dL (12.0-16.0); Mean Corpuscular HGB CONC 33.9 g/dL (32.0-36.0); Mean Corpuscular Hemoglobin 30.5 pg (27.0-31.0); Mean Platelet Volume 8.8 fL (7.4-10.4); Platelet Count 255 thou/uL (130-400); RBC Distribution Width 13.1 % (11.5-14.5); Red Blood Cell (RBC) Count 3.49 mill/uL (4.20-5.40); White Blood Cell (WBC) Count 10.6 thou/uL (4.8-10.8)
[2020-04-14 16:24] LABS: BHCG - Serum Negative (NEGATIVE); Pregs Control Background? CLEAR/WHITE (CLR/WHITE); Pregs Control Bar Appear? YES (CONTROL BAR)
[2020-04-14] MEDS ORDERED: Metoclopramide HCl 10 MG/2 ML VIAL ONE (16:31)
[2020-04-14] MEDS ORDERED: diphenhydrAMINE 50 MG/ML VIAL ONE (16:31)
[2020-04-14 16:36] LABS: Anion Gap 12 mmol/L (10-20); BUN (Urea Nitrogen) 42 mg/dL (7.0-18.7); Calc. Creatinine Clearance 0 mL/min (70-130); Carbon Dioxide 20 mmol/L (22-29); Chloride 104 mmol/L (98-107); Estimated GFR-MDRD 8; Potassium 4.3 mmol/L (3.5-5.1); Sodium 132 mmol/L (136-145)
[2020-04-14 16:37] LABS: ALT (SGPT) 13 U/L (8-55); AST (SGOT) 24 U/L (5-34); Albumin 3.1 g/dL (3.5-5.0); Alkaline Phosphatase 116 U/L (40-110); Bilirubin, Total 0.3 mg/dL (0.2-1.2); Calcium 7.4 mg/dL (7.8-10.44); Globulin 3.1 g/dL (2.4-3.5); Glucose 340 mg/dL (70-105); Protein, Total 6.2 g/dL (6.0-8.3)
[2020-04-14 16:50] LABS: Thyroid Stimulating Hormone 0.8721 uIU/mL (0.35-4.94)
[2020-04-14] MEDS ORDERED: Acetaminophen 500 MG TAB ONE (18:03)
[2020-04-14] MEDS ORDERED: Magnesium 2 GM/50 ML BAG (IN WATER) ONE (18:05)
--- NOTE | 2020-04-14 18:12 | PDOC.FPRHP ---
- History of Present Illness Chief Complaint: weakness, fatigue History of Present Illness: This is a 44F presenting for weakness, fatigue, and balance problems that started 04/13. On 04/14 she was having trouble walking d/t feeling unbalanced and her told her she looked ill, so she came to the ED. She did not have any falls but fell 1.5wks ago and hit her head. At that time, she went to the ED where they got a head CT which was normal and she was discharged. She has a hx of stroke in October 2018 with residual R-sided deficit including weakness, mildly affected speech, and R sided droop of mouth. Initially, she used a walker to ambulate but graduated from using it. Per her daughter, the pt has been having a relapse in instability for about 3mo, but there has been no change in facial droop/body weakness/change in speech. Per pt, she also has a hx of vertigo. The pt is unsure if her balance issues are vertigo. She had a ALEMAN on arrival with a SBP of 84 which quickly kali to 185, that did not resolve with Tylenol. She has a hx of HTN and only checks her BPs when she is feeling bad, at which point they tend to be ~200 systolic. She has a hx of T2DM and is supposed to take Lantus 50u am/50u pm, but she has not taken it in 3mo d/t financial restriction. Instead, she has been taking Humalin ~50u/day but her family is concerned she incorrectly doses herself because she has low sugars into the 60s, with sxs, about every other day. A1c ~4mo ago was 5.3, per pt. Currently, her postprandial BG tend to be in the 200s and her fasting BGs tend to be 170-180. She has CHF and states her last echo was performed here in 2019. She has CKD, not on HD. Her Cr has ranged from 3.7 to 6.17 in the past 10 jaja hs. The 6.17 was obtained on 04/12; today, it was 5.8. ED Course: 1000mg Tylenol, 2g Mg sulfate, Metoclopramide 10mg, Benadryl 25mg, 1L NS bolus - Allergies/Adverse Reactions Allergies Allergy/AdvReac Type Severity Reaction Status Date / Time ciprofloxacin Allergy Hives Verified 01/26/20 03:29 lisinopril Allergy Anaphylaxis Verified 01/26/20 03:29 adhesive tape AdvReac Mild Verified 04/14/20 21:11 - Home Medications Medication Instructions Recorded Confirmed Type Amlodipine [Norvasc] 10 mg PO DAILY #30 tab 05/10/18 04/14/20 Rx Aspirin [Ecotrin Low Strength] 81 mg PO DAILY tab 11/08/18 04/14/20 Rx Atorvastatin Calcium [Lipitor] 80 mg PO HS tab 11/08/18 04/14/20 Rx Carvedilol [Coreg] 25 mg PO BID-WM tab 11/08/18 04/14/20 Rx Esomeprazole Magnesium [Nexium 20 mg PO DAILY 03/24/19 04/14/20 History 24Hr] Escitalopram Oxalate 20 mg PO DAILY 03/31/19 04/14/20 History Gabapentin [Neurontin] 300 mg PO TID 01/26/20 04/14/20 History Isosorbide Mononitrate [Isosorbide 30 mg PO DAILY 01/26/20 04/14/20 History Mononitrate ER] traMADol HCl [Tramadol HCl] 100 mg PO Q6HR PRN 01/26/20 04/14/20 History traZODone HCl [Trazodone HCl] 50 mg PO HS PRN 01/26/20 04/14/20 History Metolazone [Zaroxolyn] 5 mg PO DAILY 30 Days #16 tab 01/28/20 04/14/20 Rx hydrALAZINE [Apresoline] 100 mg PO TID 30 Days #90 tab 01/28/20 04/14/20 Rx tiZANidine HCl [Zanaflex] 4 mg PO TID PRN 04/14/20 04/14/20 History - History PMHx: HTN, CHF, CKD, hx of stroke, hx of [place], GERD, Vertigo, Anxiety/depression PSHx: 2 c-sections, L5/S1 discectomy, tonsillectomy FHx: Mom req'd liver transplant d/t cancer in her 60s, DM, CABG. MGM had stomach and breast cancers, [place], CABG. Paternal side has DM and macular degeneration. Social: Has not smoked since her stroke. Drinks EtOH rarely. Used marijuana briefly to help with back pain but not currently using it. - Review of Systems General: reports: fatigue. denies: fever/chills Eyes: denies: vision changes ENT: reports: other (Neck pain with forward and R flexion and at neutral position). denies: nasal congestion, rhinorrhea Respiratory: denies: cough, congestion, shortness of breath Cardiovascular: reports: orthopnea. denies: chest pain, edema, paroxysmal nocturnal dyspnea Gastrointestinal: denies: nausea, vomiting, diarrhea Genitourinary: denies: dysuria, polyuria Skin: denies: rashes Neurological: reports: numbness (d/t DM), weakness - Vital signs BP: 175/94 HR: 76 RR: 18 Tmax: 98.5 Pox: 98% on RA Wt: 104kg - Physical Exam Constitutional: NAD, awake, alert and oriented, well developed -Constitutional: Obese HEENT: normocephalic and atraumatic, PERRLA, EOMI, grossly normal vision, grossly normal hearing Neck: supple Chest: no-tender to palpation Heart: RRR, normal S1/S2, no murmurs/rubs/gallops, pulses present, no edema Lungs: CTAB, no respiratory distress, no wheezing Abdomen: soft, non-tender, bowel sounds present, no masses/distention -Abdomen: Obese Musculoskeletal: normal structure, normal tone, ROM grossly normal -Neurological: Dysmetria of R side on [id number] testing. Nml on L side. Nml [id number] b/l Nml pronation/supination test b/l, with no disdiadochokinesia Skin: no rash/lesions Heme/Lymphatic: no unusual bruising or bleeding Psychiatric: normal mood and affect, good judgment and insight, intact recent a nd remote memory FMR H&P: Results - Labs Result Diagrams: 04/15/20 05:27 04/15/20 05:27 Lab results: WBC 10.6 thou/uL (4.8-10.8) 04/14/20 16:04 Hgb 10.7 g/dL (12.0-16.0) L 04/14/20 16:04 Hct 31.4 % (36.0-47.0) L 04/14/20 16:04 MCV 90.0 fL (78.0-98.0) 04/14/20 16:04 Plt Count 255 thou/uL (130-400) 04/14/20 16:04 Neutrophils % 78.9 % (42.0-75.0) H 04/14/20 16:04 Sodium 132 mmol/L (136-145) L 04/14/20 16:04 Potassium 4.3 mmol/L (3.5-5.1) 04/14/20 16:04 Chloride 104 mmol/L (98-107) 04/14/20 16:04 Carbon Dioxide 20 mmol/L (22-29) L 04/14/20 16:04 BUN 42 mg/dL (7.0-18.7) H 04/14/20 16:04 Creatinine 5.80 mg/dL (0.6-1.1) H 04/14/20 16:04 Glucose 340 mg/dL (70-105) H 04/14/20 16:04 Calcium 7.4 mg/dL (7.8-10.44) L 04/14/20 16:04 Total Bilirubin 0.3 mg/dL (0.2-1.2) 04/14/20 16:04 AST 24 U/L (5-34) 04/14/20 16:04 ALT 13 U/L (8-55) 04/14/20 16:04 Alkaline Phosphatase 116 U/L (40-110) H 04/14/20 16:04 Serum Total Protein 6.2 g/dL (6.0-8.3) 04/14/20 16:04 Albumin 3.1 g/dL (3.5-5.0) L 04/14/20 16:04 FMR H&P: A/P - Plan This is a 44F presenting for weakness and fatigue GWEN on CKD - Baseline Cr 2-3. Cr 5.8 on arrival - Received 1L bolus in the ED - IVF at 60mL/h for soft resuscitation d/t CHF - Monitor with am BMPs - Ordered UCr, Gaurav, Uprotein to determine if insult is pre- or post-renal HTN - SBP up to 187 in the ED - On multiple antihypertensives. Will resume. - Suspect ALEMAN is d/t elevated BP Uncontrolled T2DM - Has been taking Humalin instead of Lantus for 3mo d/t financial restriction - Has neuropathy for which she takes Gabapentin - BG 340 on arrival. Baseline ~170-200 at home - Start on moderate and bedtime SSI - ACHS glucose checks - A1c ordered CHF - Per pt, most recent echo obtained here in the hospital in 2019 - Will review records - Caution with fluid resuscitation IVF LR 60mL/h after 1L bolus in ED Hx of stroke - October 2018 - Residual R sided weakness, per pt - Strength 5/5 in UE and LE, b/l - Mild droop of mouth on R w/ dysphagia and mild speech impediment NPO pending [employer] swallow study - Dysmetria of R UE - Possible cause of instability PT/OT consulted Vertigo - Hx per pt - Possible cause of instability - PT/OT consulted Hx of [place] - Mar 2016 - Per pt, has complete blockage, therefore no CABG or stent placement - MD aware Anxiety/Depression - MD aware - Continue home meds GERD - MD aware - Continue home meds Dispo: Inpt medical IVF: LR 60mL/h DVT Ppx: Hep GI Ppx: Protonix Diet: NPO pending swallow study PCP: Anni Code: Full FMR H&P: Upper Level - Plan Date/Time: 04/14/201811 IKayy MD, have evaluated this patient and agree with findings/plan as outlined by engineer intern resident. Pertinent changes/additions are listed here. HPI: 44 yo F with PMH of CVA with Rt side deficits, LA, DM2, HTN, CAD w/ angioplasty, GERD,CKD 3 presents for worsening weakness, fatigue, and feeling unsteady on her feet for the past 2 weeks. She reports her family stated she looked bad and so she decided to come to the ED. She states she has not taken her long acting insulin for the past 3 months due to cost. She denies chest pain, reports palpitations and occasional cough. Reports headache, denies changes in vision. Denies changes in bowels. In ED, Creatinine was elevated to 5.8, GFR of 8, base line out man to 10-13. ED: Brain CT neg, CXR wnl. Given reglan and Benadryl. Labs: Hgb 10.7, WBC 10.6 , Na 132, Avila 20, BUN 42, Cr 5.80 (baseline 4.5), glucose 340, Alk phos 116 (decreased from 154), BHButyrate wnl. Physical exam: Cardiac: RRR, no murmurs. Lungs BCTA. #GWEN on CKD4 -BUN 42/Cr5.8 (baseline cr 4.5), GFR <15 -Urine studies pending -Gentle fluid rehydration NS @ 60 ml/hr -Consider nephro consult in AM -Covid swab pending #Chronic Vertigo, worsening -TSH, mag and phos pending -CT head neg #Pseudohyponatremia -Na 132, corrected to 136 #HTN -resume home medications: coreg, hydralazine #HFpEF -10/2018. EF 50-55%. E/A flow refersal suggesting diastolic dysfunction, cannot exclude hypokinesis along inferior wall. Technically difficult study. #CVA with Rt sided deficits -dysmetria with FTN right hand, right facial droop, otherwise exam WNL. These are at baseline per patient and daughter #T2DM -BHB negative -ACHS with SSI -A1C pending #Hx LA, with angioplasty -aware #Anxiety and depression -Continue home medications #alk Phos elevated, chronic -may be 2/2 CKD GI ppx: protonix DVT ppx: heparin Diet: CC PCP: Anni Code status: Full Dispo: Admit to medical inpt, LOS >48 hours Addendum - Attending - Attending Attestation Date/Time: 04/14/20 [id number] I personally evaluated the patient and discussed the management with Dr. Edi Garcia I agree with the History, Examination, Assessment and Plan documented above with any addition or exceptions noted below 44 yo female with h/o DM, HTN, CAD, CVA and CKD presented c/o weakness/balance issues over last 3 weeks. Patient had CVA in 08/2018 with some residual right sided weakness. Patient and family have noted she has been more unsteady in last 3 weeks with some falls including one about 1 1/2 weeks ago with negative eval in ER. Denies any fever/chills, N/V, abd pain, dysuria, speech disturbance or visual changes. In ER also found to have worsening renal function. PMH/PSH/Meds/SH reviewed and agree with resident's documentation. Afebrile VSS Exam repeated by me and agree with resident's findings. Labs: WBC=10.6, H/H=10.7/31.4, Hvm=532, Hk=352, K=4.2, Yu=744, CO2=20, BUN/Cr=42/5.8, Dogq=343, Ca=7.4, TSH=0.8721, trop=0.018, CT brain- negative, CXR-NAD A/P: 1) ARF on chronic CKD - will hydrate overnight to see if renal function improves. Consult renal in AM; 2) HTN- poorly controlled; resume home meds and adjust as needed; 3) DM- having some hypoglycemia; monitor BG and adjust as indicated. 4) Balance - PT/OT eval; may need outpatient treatment.
[2020-04-14] MEDS ORDERED: Sodium Chloride 0.9% 1,000 ML IV SCH (19:30)
[2020-04-14] MEDS ORDERED: Acetaminophen 650 MG Suppository PR PRN (20:31)
[2020-04-14] MEDS ORDERED: Acetaminophen 325 MG TAB PO PRN (20:31)
[2020-04-14] MEDS ORDERED: Dextrose 5% in Water 1,000 ML IV PRN (20:45)
[2020-04-14] MEDS ORDERED: Dextrose 50% Abboject 50 ML SYRINGE SLOW IVP PRN (20:45)
[2020-04-14 21:02] LABS: Hemoglobin A1c 7.3 % (4.0-6.0)
[2020-04-14 21:09] LABS: Magnesium 2.6 mg/dL (1.6-2.6); Phosphorus 5.1 mg/dL (2.3-4.7)
[2020-04-14 21:27] VITALS: BMI 32.1
[2020-04-14] MEDS: Heparin 5,000 UNITS/ML VIAL SC SCH (22:07)
[2020-04-14] MEDS: Sodium Chloride 0.9% 1,000 ML IV SCH (22:08)
[2020-04-14] MEDS: HumaLOG 300 UNITS/3 ML VIAL SC PRN (22:24)
[2020-04-15 02:44] LABS: Creatinine, Urine 52.01 mg/dL (47-110)
[2020-04-15] MEDS ORDERED: Carvedilol 25 MG TAB PO SCH (03:00)
[2020-04-15] MEDS ORDERED: hydrALAZINE 25 MG TAB PO SCH (03:00)
[2020-04-15] MEDS: traZODone HCl 50 MG TAB PO PRN ×2 (03:15→21:43)
[2020-04-15] MEDS: tiZANidine HCl 4 MG TAB PO PRN ×2 (04:46→17:40)
[2020-04-15 05:50] LABS: #Eosinphils 0.1 thou/uL (0.0-0.7); #Lymphocytes 2.7 thou/uL (1.20-3.40); #Monocytes 0.4 thou/uL (0.11-0.59); #Neutrophils 5.3 thou/uL (1.40-6.50); %Basophils 0.4 % (0.0-1.0); %Eosinophils 1.1 % (0.0-10.0); %Lymphocytes 31.9 % (21.0-51.0); %Monocytes 4.8 % (0.0-10.0); %Neutrophils 61.8 % (42.0-75.0); Hemoglobin 10.2 g/dL (12.0-16.0); Mean Corpuscular HGB CONC 34.1 g/dL (32.0-36.0); Mean Corpuscular Hemoglobin 30.6 pg (27.0-31.0); Mean Platelet Volume 8.5 fL (7.4-10.4); Platelet Count 251 thou/uL (130-400); RBC Distribution Width 12.8 % (11.5-14.5); Red Blood Cell (RBC) Count 3.33 mill/uL (4.20-5.40); White Blood Cell (WBC) Count 8.6 thou/uL (4.8-10.8)
[2020-04-15] MEDS: Amlodipine 10 MG TAB PO SCH (06:08)
[2020-04-15] MEDS: HumaLOG 300 UNITS/3 ML VIAL SC PRN ×3 (06:11→21:47)
[2020-04-15] MEDS: Sodium Chloride 0.9% 1,000 ML IV SCH ×2 (06:15→23:01)
[2020-04-15 06:20] LABS: Anion Gap 14 mmol/L (10-20); BUN (Urea Nitrogen) 43 mg/dL (7.0-18.7); Calc. Creatinine Clearance 22 mL/min (70-130); Calcium 7.1 mg/dL (7.8-10.44); Carbon Dioxide 18 mmol/L (22-29); Chloride 104 mmol/L (98-107); Estimated GFR-MDRD 9; Glucose 396 mg/dL (70-105); Potassium 4.2 mmol/L (3.5-5.1); Sodium 132 mmol/L (136-145)
[2020-04-15] MEDS ORDERED: NPH, Human Insulin Isophane 300 UNIT/3 ML VIAL SC SCH ×2 (08:00→17:00)
--- NOTE | 2020-04-15 09:13 | PDOC.FM ---
- Subjective Subjective: Blood pressures elevated overnight. Dull headache persists this AM. Reports she is urinating frequently on IV fluids. No dysuria. No fever, chills, SOB, swelling. She c/o tiredness from not sleeping well in hospital. - Objective Vital Signs & Weight: Vital Signs (12 hours) Temp Pulse Resp BP BP Pulse Ox 04/15/20 08:04 98.3 F 71 18 156/78 H 97 04/15/20 06:08 74 198/94 H 04/15/20 03:15 74 189/82 H 04/15/20 03:11 97.6 F 74 18 189/82 H 98 04/14/20 23:20 98.4 F 76 18 175/94 H 98 Weight Weight 104.326 kg I&O: 04/14/20 04/15/20 04/16/20 06:59 06:59 06:59 Intake Total 2640 Balance 2640 Result Diagrams: 04/15/20 05:27 04/15/20 05:27 Phys Exam - Physical Examination Constitutional: NAD sleeping but arousable HEENT: moist MMs Neck: supple Respiratory: clear to auscultation bilateral Cardiovascular: RRR, no significant murmur Gastrointestinal: soft, non-tender, positive bowel sounds Musculoskeletal: no edema, pulses present Neurological: moves all 4 limbs Psychiatric: normal affect, A&O x 3 Skin: no rash Dx/Plan - Plan Plan: This is a 44F presenting for weakness and fatigue GWEN on CKD - Baseline Cr 2-3. Cr 5.8 on arrival - Received 1L bolus in the ED - IVF at 60mL/h for soft resuscitation d/t CHF - Monitor with am BMPs - Urine studies with FeNa 7, suggestive of post-obstructive renal injury alth ough unclear if this is accurate in the setting of CKD5; CT w/o contrast on 04/12 in ED with no evidence of kidney stone - Discharge summary from past admission in 12/2019 shows dishcarged on lasix 80 mg TID, will try to verify today if patient has been taking this - consult to nephrology this AM HTN urgency SBPs in 180s-190s overnight, seems to be chronically uncontrolled but now with headaches and GWEN. - On multiple antihypertensives. Will resume. - will monitor BP this AM with home meds given and consider additional agents for better control Uncontrolled T2DM - Has been taking Humalin instead of Lantus for 3mo d/t financial restriction - Has neuropathy for which she takes Gabapentin - BG 340 on arrival. Baseline ~170-200 at home - Start on moderate and bedtime SSI - ACHS glucose checks - A1c worsened from 5.3 to 7.3 - restart NPH this AM and will adjust pending accuchecks today CHF - Echo late 2018 - EF 50-55% with suggested diastolic dysfunction - Caution with fluid resuscitation IVF LR 60mL/h after 1L bolus in ED Hx of stroke - October 2018 - Residual R sided weakness, per pt - Strength 5/5 in UE and LE, b/l - Mild droop of mouth on R w/ dysphagia and mild speech impediment NPO pending [employer] swallow study - Dysmetria of R UE - Possible cause of instability PT/OT consulted Vertigo - Hx per pt - Possible cause of instability - PT/OT consulted Hx of [place] - Mar 2016 - Per pt, has complete blockage, therefore no CABG or stent placement - MD aware Anxiety/Depression - MD aware - Continue home meds GERD - MD aware - Continue home meds Dispo: Inpt medical IVF: LR 60mL/h DVT Ppx: Hep GI Ppx: Protonix Diet: CC PCP: Anni Code: Full
[2020-04-15] MEDS: Gabapentin 300 MG CAP PO SCH ×3 (10:36→21:43)
[2020-04-15] MEDS: hydrALAZINE 25 MG TAB PO SCH ×3 (10:36→21:44)
[2020-04-15] MEDS: Aspirin 81 mg Enteric Coated Tablet PO SCH (10:36)
[2020-04-15] MEDS: Carvedilol 25 MG TAB PO SCH ×2 (10:37→17:40)
[2020-04-15] MEDS: Escitalopram Oxalate 20 mg Tablet PO SCH (10:37)
[2020-04-15] MEDS: Heparin 5,000 UNITS/ML VIAL SC SCH ×3 (10:37→21:44)
[2020-04-15] MEDS: traMADol HCl 50 MG TAB PO PRN ×2 (10:43→17:41)
--- NOTE | 2020-04-15 12:09 | ULT ---
Exam: Bilateral renal ultrasound HISTORY: Acute renal failure. COMPARISON: 01/26/2020. CORRELATION: Renal stone CT 04/12/2020. FINDINGS: Right kidney: Normal cortical echotexture. No hydronephrosis. 2.4 x 2.0 x 2.5 cm anechoic focus in th e right renal cortex, likely representing a complex cyst. Previously, this cyst measured 1.8 x 1.7 x 1.5 cm. Correlation made with recent CT and MRI suggest a T2 hyperintense lesion. Attenuation coeff icient on the renal stone CT is 1 Hounsfield unit. Right kidney measurements: 9.5 x 5.1 x 5.5 cm. Left kidney: Normal cortical echotexture. No hydronephrosis Left kidney measurements 9.7 x 5.2 x 5.5 cm. Urinary bladder: Normal mucosa. IMPRESSION: No hydronephrosis. Transcribed Date/Time: 04/15/2020 1:37 PM
[2020-04-15 12:50] LABS: SARS-CoV-2 MS2 Positive; SARS-CoV-2 N Gene Negative; SARS-CoV-2 S Gene Negative; SARS-CoV-2 by NAA Not Detected (NotDetected); SARS-CoV-2 orf1ab Negative
--- NOTE | 2020-04-15 14:33 | PRG ---
DATE OF SERVICE: Ms. Goldman is a pleasant, obese 44-year-old female with multiple medical problems, who was admitted with generalized malaise and fatigue. No specific other symptoms. We are readjusting some medications, checking her labs, and we will proceed based on these findings. On physical exam, she has no obvious cause of her complaints. Job ID: [id number]
[2020-04-15] MEDS: Acetaminophen 500 MG TAB PO PRN (17:40)
--- NOTE | 2020-04-15 17:54 | CON ---
DATE OF CONSULTATION: 04/15/2020 CONSULTING PHYSICIAN: Dr. Araya. REASON FOR CONSULTATION: Acute kidney injury. REASON FOR ADMISSION: Weakness. HISTORY OF PRESENT ILLNESS: This is a 44-year-old female with history of chronic kidney disease stage 5, hypertension, CHF, came to the hospital with above complaints and was admitted. Nephrology consult for evaluation of renal function. The patient's baseline creatinine is close to what she has been running now. She feels a little bit tired today. She had an ultrasound, which showed small kidneys, otherwise labs are stable. No nausea or vomiting. No chest pain or palpitation. The patient also on metolazone, which is stopped today. PAST MEDICAL HISTORY: Positive for hypertension, CHF, CKD, stroke, GERD, vertigo, anxiety, depression. PAST SURGICAL HISTORY: , diskectomy, tonsillectomy. HOME MEDICATIONS: Reviewed. ALLERGIES: CIPROFLOXACIN, LISINOPRIL, ADHESIVE TAPE. SOCIAL HISTORY: No smoking. History of marijuana in the past. FAMILY HISTORY: Positive for cancer. REVIEW OF SYSTEMS: CONSTITUTIONAL: Negative for weight loss or gain, ability to conduct usual activities. SKIN: Negative for rash, itching. EYES: Negative for double vision, pain. ENT/MOUTH: Negative for nose bleeding, neck stiffness, pain, tenderness. CARDIOVASCULAR: Negative for palpitations, dyspnea on exertion, orthopnea. RESPIRATORY: Negative for shortness of breath, wheezing, cough, hemoptysis, fever or night sweats. GASTROINTESTINAL: Negative for poor appetite, abdominal pain, heartburn, nausea, vomiting, constipation, or diarrhea. GENITOURINARY: Negative for urgency, frequency, dysuria, nocturia. MUSCULOSKELETAL: Negative for pain, swelling. NEUROLOGIC/PSYCHIATRIC: Negative for anxiety, depression. ALLERGY/IMMUNOLOGIC: Negative for skin rash, bleeding tendency. PHYSICAL EXAMINATION: GENERAL: This is a well-built female, in no apparent. VITAL SIGNS: Temperature 98.3, pulse 71, respiratory rate 18, blood pressure 156/78. HEENT: Atraumatic and normocephalic. Oral mucosa moist. NECK: Supple. CV: S1 and S2. Rate and rhythm regular. RESPIRATORY: Clear. GI: Abdomen is soft. MUSCULOSKELETAL: No tenderness. No edema. DERMATOLOGIC: No skin rash. NEUROLOGIC: Alert and awake. PSYCHIATRIC: Mood and affect normal. LABORATORY DATA: Hemoglobin is 10.2, potassium 4.2, BUN is 43, and creatinine is 5.3. Baseline creatinine is around 4.7. ASSESSMENT AND PLAN: 1. Acute kidney injury on chronic kidney stage 5, stable, actually creatinine is slightly better with hydration. We will stop metolazone . 2. Acidosis. 3. Anemia. 4. History of hypertension. 5. Hyperglycemia. 6. Proteinuria. No acute indication for dialysis. We will continue hydration. Avoid nephrotoxins. Thank you for the consult. Job ID: [id number]
[2020-04-15] MEDS ORDERED: Metamucil PACK PO SCH (18:10)
[2020-04-15] MEDS ORDERED: FLU VACC QS2020-21(6MOS UP)/PF 60 MCG/0.5 ML SYRINGE IM ONE (21:00)
[2020-04-15] MEDS: Atorvastatin Calcium 40 MG TAB PO SCH (21:43)
[2020-04-16] MEDS: traMADol HCl 50 MG TAB PO PRN ×3 (00:15→18:06)
[2020-04-16] MEDS: tiZANidine HCl 4 MG TAB PO PRN ×3 (01:55→23:24)
[2020-04-16] MEDS: HumaLOG 300 UNITS/3 ML VIAL SC PRN ×4 (06:22→20:55)
[2020-04-16] MEDS ORDERED: NPH, Human Insulin Isophane 300 UNIT/3 ML VIAL SC SCH (07:22)
--- NOTE | 2020-04-16 07:25 | PDOC.FM ---
- Subjective Subjective: No acute overnight events. 2 episodes of diarrhea but this has now stopped without any medication. She denies any abdominal pain. Urinating without difficulty. Generalized weakness is improving. She has no complaints this AM. - Objective Vital Signs & Weight: Vital Signs (12 hours) Temp Pulse Resp BP BP Pulse Ox 04/16/20 03:46 98.5 F 74 16 153/73 H 97 04/15/20 23:11 98.6 F 71 16 166/82 H 98 04/15/20 21:44 72 136/65 04/15/20 21:40 98.0 F 71 16 136/75 97 Weight Weight 104.326 kg I&O: 04/15/20 04/16/20 04/17/20 06:59 06:59 06:59 Intake Total 2640 2560 Balance 2640 2560 Result Diagrams: 04/15/20 05:27 04/16/20 07:02 Phys Exam - Physical Examination Constitutional: NAD HEENT: moist MMs Respiratory: clear to auscultation bilateral Cardiovascular: RRR, no significant murmur Gastrointestinal: soft, non-tender, no distention, positive bowel sounds Musculoskeletal: pulses present trace edema bilateral LE Neurological: non-focal, moves all 4 limbs Psychiatric: normal affect, A&O x 3 Skin: no rash Dx/Plan - Plan Plan: GWEN on CKD5 Cr elevated on admission. Baseline seems to be around 4.5. - consulted nephrology, appreciate recs - continue gentle mIVF 60 cc/h - holding metolazone per nephrology HTN urgency SBPs in 180s-190s overnight, seems to be chronically uncontrolled but now with headaches and GWEN. - On multiple antihypertensives. Will resume. - will monitor BP this AM with home meds given and consider additional agents for better control, although will need to avoid SURESH/ARB with her kidney function Uncontrolled T2DM - Has been taking Humalin instead of Lantus for 3mo d/t financial restriction - Has neuropathy for which she takes Gabapentin - BG 340 on arrival. Baseline ~170-200 at home - Start on moderate and bedtime SSI - ACHS glucose checks - A1c worsened from 5.3 to 7.3 - restart NPH and will adjust pending accuchecks today CHF - Echo late 2018 - EF 50-55% with suggested diastolic dysfunction - Caution with fluid resuscitation IVF LR 60mL/h after 1L bolus in ED Hx of stroke - October 2018 - Residual R sided weakness, per pt - Strength 5/5 in UE and LE, b/l - Mild droop of mouth on R w/ dysphagia and mild speech impediment NPO pending [employer] swallow study - Dysmetria of R UE - Possible cause of instability PT/OT consulted Vertigo - Hx per pt - Possible cause of instability - PT/OT consulted Hx of [place] - Mar 2016 - Per pt, has complete blockage, therefore no CABG or stent placement - MD aware Anxiety/Depression - MD aware - Continue home meds GERD - MD aware - Continue home meds Dispo: Inpt medical IVF: LR 60mL/h DVT Ppx: Hep GI Ppx: Protonix Diet: CC PCP: Anni Code: Full
[2020-04-16 08:03] LABS: Anion Gap 14 mmol/L (10-20); BUN (Urea Nitrogen) 43 mg/dL (7.0-18.7); Calc. Creatinine Clearance 24 mL/min (70-130); Calcium 7.2 mg/dL (7.8-10.44); Carbon Dioxide 19 mmol/L (22-29); Chloride 106 mmol/L (98-107); Estimated GFR-MDRD 10; Glucose 301 mg/dL (70-105); Potassium 4.2 mmol/L (3.5-5.1); Sodium 135 mmol/L (136-145)
[2020-04-16] MEDS ORDERED: Metolazone 5 MG TAB PO SCH (08:30)
[2020-04-16] MEDS: Aspirin 81 mg Enteric Coated Tablet PO SCH (09:18)
[2020-04-16] MEDS: NPH, Human Insulin Isophane 300 UNIT/3 ML VIAL SC SCH (09:18)
[2020-04-16] MEDS: Carvedilol 25 MG TAB PO SCH ×2 (09:19→16:10)
[2020-04-16] MEDS: Amlodipine 10 MG TAB PO SCH (09:19)
[2020-04-16] MEDS: Gabapentin 300 MG CAP PO SCH ×3 (09:19→20:55)
[2020-04-16] MEDS: hydrALAZINE 25 MG TAB PO SCH ×3 (09:31→20:54)
[2020-04-16] MEDS: Escitalopram Oxalate 20 mg Tablet PO SCH (09:31)
[2020-04-16] MEDS: Heparin 5,000 UNITS/ML VIAL SC SCH ×3 (09:31→20:54)
[2020-04-16] MEDS: Acetaminophen 500 MG TAB PO PRN ×2 (11:27→18:06)
--- NOTE | 2020-04-16 12:01 | PRG ---
DATE OF SERVICE: 04/16/2020 Ms. Goldman states she feels "much better." Her renal function seems to be stabilizing at baseline. We can likely discharge her later today or tomorrow. Job ID: [id number]
--- NOTE | 2020-04-16 15:48 | PRG ---
DATE OF SERVICE: 04/16/2020 SUBJECTIVE: Patient was seen and examined at bedside and overnight events noted. Patient denies any shortness of breath or chest pain or palpitation. No history of nausea or vomiting or diarrhea or fever or chills or cramps. OBJECTIVE: General: This is a well-built female, in no apparent distress. Vital Signs: Temperature 98.6. Heart Rate 69. Respiratory rate 18. Blood pressure 166/78. HEENT: Atraumatic, normocephalic. Oral mucosa is moist. Neck: Supple. Cardiovascular: S1, S2 heard. Rate and rhythm regular. Respiratory: Clear to auscultation. Gastrointestinal: Abdomen is soft. Musculoskeletal: No tenderness. No edema. Dermatologic: No skin rash. Neurologic: Alert and awake and oriented x3. No focal neurologic deficits. Moving all the extremities. Psychiatric: Mood and affect normal. LABORATORY DATA: Potassium 4.2, BUN is 43, and creatinine is 4.9. ASSESSMENT AND PLAN: 1. Acute kidney injury on chronic kidney disease stage 5. Renal function is stable. No acute indication for dialysis. 2. Acidosis. 3. Hypertension. 4. Proteinuria. Labs are stable. Avoid nephrotoxins. Job ID: [id number]
[2020-04-16] MEDS: Atorvastatin Calcium 40 MG TAB PO SCH (20:54)
[2020-04-16] MEDS: traZODone HCl 50 MG TAB PO PRN (23:24)
[2020-04-17] MEDS: traMADol HCl 50 MG TAB PO PRN ×4 (00:28→20:59)
[2020-04-17] MEDS: Sodium Chloride 0.9% 1,000 ML IV SCH ×3 (01:13→23:45)
--- NOTE | 2020-04-17 05:37 | PDOC.FM ---
- Subjective Subjective: Patient reports mild headache this AM, no vision changes or difficulty breathing. Otherwise feeling well. - Objective Vital Signs & Weight: Vital Signs (12 hours) Temp Pulse Resp BP BP Pulse Ox 04/17/20 04:26 98.2 F 76 12 163/82 H 95 04/17/20 00:24 98.4 F 77 14 166/78 H 97 04/16/20 20:54 75 157/79 H 04/16/20 20:53 97.8 F 75 14 157/79 H 99 Weight Weight 104.326 kg I&O: 04/15/20 04/16/20 04/17/20 06:59 06:59 06:59 Intake Total 2640 2560 2800 Balance 2640 2560 2800 Result Diagrams: 04/15/20 05:27 04/17/20 06:01 Phys Exam - Physical Examination Constitutional: NAD Respiratory: no wheezing, no rales, no rhonchi Cardiovascular: RRR, no significant murmur, no rub Gastrointestinal: soft, non-tender, no distention, positive bowel sounds Dx/Plan - Plan Plan: GWEN on CKD5 Cr elevated on admission. Baseline seems to be around 4.5. - consulted nephrology, appreciate recs - continue gentle mIVF 60 cc/h - Metolazone dosing per nephrology HTN urgency Seems to be chronically uncontrolled - On multiple antihypertensives. Will continue - will monitor BP this AM with home meds given and consider additional agents for better control, although will need to avoid SURESH/ARB with her kidney function - switch amlodipine to Nifedipine XL 30mg QD Uncontrolled T2DM - Has been taking Humalin instead of Lantus for 3mo d/t financial restriction - Has neuropathy for which she takes Gabapentin - BG 340 on arrival. Baseline ~170-200 at home - Start on moderate and bedtime SSI - ACHS glucose checks - A1c worsened from 5.3 to 7.3 - restart NPH and will adjust pending accuchecks today CHF - Echo late 2018 - EF 50-55% with suggested diastolic dysfunction - Caution with fluid resuscitation IVF LR 60mL/h after 1L bolus in ED Hx of stroke - October 2018 - Residual R sided weakness, per pt - Strength 5/5 in UE and LE, b/l - Mild droop of mouth on R w/ dysphagia and mild speech impediment NPO pending OREMAN swallow study - Dysmetria of R UE - Possible cause of instability PT/OT consulted Vertigo - Hx per pt - Possible cause of instability - PT/OT consulted Hx of [place] - Mar 2016 - Per pt, has complete blockage, therefore no CABG or stent placement - MD aware Anxiety/Depression - MD aware - Continue home meds GERD - MD aware - Continue home meds Dispo: Inpt medical IVF: LR 60mL/h DVT Ppx: Hep GI Ppx: Protonix Diet: CC PCP: Anni Code: Full Addendum - Attending - Attending Attestation Date/Time: 04/18/20 [id number] I personally evaluated the patient and discussed the management with Dr. Shankar I agree with the History, Examination, Assessment and Plan documented above with any addition or exceptions noted below.
[2020-04-17 06:35] LABS: Anion Gap 13 mmol/L (10-20); BUN (Urea Nitrogen) 42 mg/dL (7.0-18.7); Calc. Creatinine Clearance 24 mL/min (70-130); Calcium 7.4 mg/dL (7.8-10.44); Carbon Dioxide 22 mmol/L (22-29); Chloride 105 mmol/L (98-107); Estimated GFR-MDRD 10; Glucose 297 mg/dL (70-105); Potassium 4.4 mmol/L (3.5-5.1); Sodium 136 mmol/L (136-145)
[2020-04-17] MEDS: HumaLOG 300 UNITS/3 ML VIAL SC PRN ×4 (06:36→20:51)
[2020-04-17] MEDS ORDERED: NPH, Human Insulin Isophane 300 UNIT/3 ML VIAL SC SCH ×2 (08:00→17:00)
[2020-04-17] MEDS: Aspirin 81 mg Enteric Coated Tablet PO SCH (08:49)
[2020-04-17] MEDS: hydrALAZINE 25 MG TAB PO SCH ×3 (08:49→20:47)
[2020-04-17] MEDS: Escitalopram Oxalate 20 mg Tablet PO SCH (08:49)
[2020-04-17] MEDS: Carvedilol 25 MG TAB PO SCH ×2 (08:49→17:13)
[2020-04-17] MEDS: Heparin 5,000 UNITS/ML VIAL SC SCH ×3 (08:51→20:47)
[2020-04-17] MEDS ORDERED: NIFEdipine XL 30 MG TAB PO SCH (09:00)
[2020-04-17] MEDS: Gabapentin 300 MG CAP PO SCH ×3 (09:29→20:47)
[2020-04-17] MEDS: NPH, Human Insulin Isophane 300 UNIT/3 ML VIAL SC SCH (10:17)
--- NOTE | 2020-04-17 10:34 | PRG ---
DATE OF SERVICE: 04/17/2020 SUBJECTIVE: Patient was seen and examined at bedside and overnight events noted. Patient denies any shortness of breath or chest pain or palpitation. No history of nausea or vomiting or diarrhea or fever or chills or cramps. OBJECTIVE: GENERAL: This is a well-built female, in no apparent distress. VITAL SIGNS: Temperature 98.7. Heart Rate 75. Respiratory rate 18. Blood pressure 170/98. HEENT: Atraumatic, normocephalic. Oral mucosa is moist. NECK: Supple. CARDIOVASCULAR: S1, S2 heard. Rate and rhythm regular. RESPIRATORY: Clear to auscultation. GASTROINTESTINAL: Abdomen is soft. MUSCULOSKELETAL: No tenderness. No edema. DERMATOLOGIC: No skin rash. NEUROLOGIC: Alert and awake and oriented x3. No focal neurologic deficits. Moving all the extremities. PSYCHIATRIC: Mood and affect normal. LABORATORY DATA: Potassium 4.4, BUN is 42, creatinine is 4.8. ASSESSMENT AND PLAN: 1. Acute kidney injury on chronic kidney disease stage 5. Stable, okay to discharge home from Nephrology standpoint. 2. Acidosis, stable. 3. Hypertension. 4. Proteinuria. The patient is advised to follow up with the transplant team and also follow up with Dr. Hartley in 1 week. Okay to discharge home from Nephrology standpoint. Job ID: [id number]
[2020-04-17] MEDS: Acetaminophen 500 MG TAB PO PRN ×2 (11:37→14:55)
[2020-04-17] MEDS ORDERED: Ondansetron ODT 4 MG TAB PO PRN (12:42)
[2020-04-17] MEDS: Atorvastatin Calcium 40 MG TAB PO SCH (20:47)
[2020-04-17] MEDS: tiZANidine HCl 4 MG TAB PO PRN (23:44)
[2020-04-17] MEDS: traZODone HCl 50 MG TAB PO PRN (23:44)
--- NOTE | 2020-04-18 04:24 | PDOC.FM ---
- Subjective Subjective: Patient feeling well, minimal headache. wants to go home - Objective Vital Signs & Weight: Vital Signs (12 hours) Temp Pulse Resp BP BP Pulse Ox 04/17/20 23:38 98.4 F 75 16 176/95 H 97 04/17/20 20:47 75 147/76 H 04/17/20 20:42 98.2 F 75 14 147/76 H 95 04/17/20 20:40 95 Weight Weight 104.326 kg I&O: 04/16/20 04/17/20 04/18/20 06:59 06:59 06:59 Intake Total 2560 4320 1025 Balance 2560 4320 1025 Result Diagrams: 04/15/20 05:27 04/17/20 06:01 Phys Exam - Physical Examination Constitutional: NAD Respiratory: no wheezing, no rales, no rhonchi, clear to auscultation bilateral Cardiovascular: RRR, no significant murmur, no rub Gastrointestinal: soft, non-tender, no distention, positive bowel sounds Dx/Plan - Plan Plan: Plan: GWEN on CKD5 Cr elevated on admission. Baseline seems to be around 4.5. - consulted nephrology, appreciate recs - continue gentle mIVF 60 cc/h - Metolazone dosing per nephrology HTN urgency Seems to be chronically uncontrolled - On multiple antihypertensives. Will continue - will monitor BP this AM with home meds given and consider additional agents for better control, although will need to avoid SURESH/ARB with her kidney function - increase Nifedipine XL 60mg QD Uncontrolled T2DM - Has been taking Humalin instead of Lantus for 3mo d/t financial restriction - Has neuropathy for which she takes Gabapentin - BG 340 on arrival. Baseline ~170-200 at home - Start on moderate and bedtime SSI - ACHS glucose checks - A1c worsened from 5.3 to 7.3 - increase NPH to 58 units BID CHF - Echo late 2018 - EF 50-55% with suggested diastolic dysfunction - Caution with fluid resuscitation IVF LR 60mL/h after 1L bolus in ED Hx of stroke - October 2018 - Residual R sided weakness, per pt - Strength 5/5 in UE and LE, b/l - Mild droop of mouth on R w/ dysphagia and mild speech impediment NPO pending [employer] swallow study - Dysmetria of R UE - Possible cause of instability PT/OT consulted Vertigo - Hx per pt - Possible cause of instability - PT/OT consulted Hx of [place] - Mar 2016 - Per pt, has complete blockage, therefore no CABG or stent placement - MD aware Anxiety/Depression - MD aware - Continue home meds GERD - MD aware - Continue home meds Dispo: Inpt medical IVF: LR 60mL/h DVT Ppx: Hep GI Ppx: Protonix Diet: CC PCP: Anni Code: Full Addendum - Attending - Attending Attestation Date/Time: 04/18/20 [id number] I personally evaluated the patient and discussed the management with Dr. Shankar I agree with the History, Examination, Assessment and Plan documented above with any addition or exceptions noted below. D/C will f/u PCP.
[2020-04-18] MEDS: HumaLOG 300 UNITS/3 ML VIAL SC PRN ×2 (05:52→15:52)
[2020-04-18] MEDS: traMADol HCl 50 MG TAB PO PRN ×2 (05:58→15:51)
[2020-04-18] MEDS: Acetaminophen 500 MG TAB PO PRN (06:02)
[2020-04-18] MEDS ORDERED: NPH, Human Insulin Isophane 300 UNIT/3 ML VIAL SC SCH ×4 (08:00→17:00)
[2020-04-18] MEDS: Aspirin 81 mg Enteric Coated Tablet PO SCH (08:43)
[2020-04-18] MEDS: hydrALAZINE 25 MG TAB PO SCH ×2 (08:43→15:49)
[2020-04-18] MEDS: Heparin 5,000 UNITS/ML VIAL SC SCH ×2 (08:43→15:49)
[2020-04-18] MEDS: Escitalopram Oxalate 20 mg Tablet PO SCH (08:44)
[2020-04-18] MEDS: Carvedilol 25 MG TAB PO SCH (08:44)
[2020-04-18] MEDS: Gabapentin 300 MG CAP PO SCH ×2 (08:45→15:49)
[2020-04-18] MEDS ORDERED: NIFEdipine XL 60 MG TAB PO SCH (09:00)
--- NOTE | 2020-04-18 14:34 | PRG ---
DATE OF SERVICE: 04/18/2020 SUBJECTIVE: Patient was seen and examined at bedside and overnight events noted. Patient denies any shortness of breath or chest pain or palpitation. No history of nausea or vomiting or diarrhea or fever or chills or cramps. OBJECTIVE: GENERAL: This is a well-built female, in no apparent distress. VITAL SIGNS: Temperature 97. Heart rate 69. Respiratory rate 18. Blood pressure 145/70. HEENT: Atraumatic, normocephalic. Oral mucosa is moist NECK: Supple. CARDIOVASCULAR: S1, S2 heard. Rate and rhythm regular. RESPIRATORY: Clear to auscultation. GASTROINTESTINAL: Abdomen is soft. MUSCULOSKELETAL: No tenderness. No edema. DERMATOLOGIC: No skin rash. NEUROLOGIC: Alert and awake and oriented X3. No focal neurologic deficits. Moving all the extremities. PSYCHIATRIC: Mood and affect normal. LABORATORY DATA: Not done today. ASSESSMENT AND PLAN: 1. Acute kidney injury on chronic kidney disease, stage 5, stable. No acute indication for dialysis. Okay to discharge home. 2. Acidosis. 3. Hypertension. 4. Proteinuria. The patient was advised to follow up with the renal transplant team and also Dr. Hartley in a week. We will follow as outpatient. Job ID: [id number]
[2020-04-18 16:49] VITALS: BP 149/88; TEMP 98.4
--- NOTE | 2020-04-19 01:14 | DIS ---
DATE OF ADMISSION: 04/14/2020 DATE OF DISCHARGE: 04/18/2020 ADMITTING ATTENDING: Dr. Caballero DISCHARGE ATTENDING: Dr. Agustin RESIDENT: Dr. Shankar CONSULTS: Nephrology Dr. Sutton. PROCEDURES: The patient had a renal ultrasound showing no hydronephrosis on 04/15. PRIMARY DIAGNOSIS: Inkvk-ki-wmmvyha renal failure. SECONDARY DIAGNOSES: Diabetes type 2, hypertensive urgency, congestive heart failure, history of CVA, vertigo, history of MT, anxiety/depression, gastroesophageal reflux disease. DISCHARGE MEDICATIONS: 1. Aspirin 81 mg p.o. daily. 2. Atorvastatin 80 mg p.o. at bedtime. 3. Carvedilol 25 mg p.o. b.i.d. 4. Escitalopram 20 mg p.o. daily. 5. Nexium 20 mg p.o. daily. 6. Gabapentin 300 mg p.o. t.i.d. 7. Hydralazine 100 mg p.o. t.i.d. 8. Imdur 30 mg p.o. daily. 9. Metolazone 5 mg p.o. daily p.r.n. 10. Nifedipine XL 60 mg p.o. daily. 11. Insulin NPH 58 units subcu b.i.d. 12. Tizanidine 4 mg p.o. t.i.d. 13. Tramadol 100 mg p.o. q.6 hours. 14. Trazodone 50 mg p.o. at bedtime. Discontinued medications; 1. Discontinued the patient's insulin Lantus and Humalog due to patient noncompliance. The patient reported that medications were too expensive for her and she was not able to take them. 2. Stopped amlodipine 10, replaced with nifedipine XL which can be increased as outpatient to attempt better blood pressure control. HISTORY OF PRESENT ILLNESS/HOSPITAL COURSE: The patient is a 44-year-old female who presented to the ER for weakness, fatigue, and balance problems that started on 04/13. In the ER, systolic blood pressure was 185. Serum creatinine was 5.8 on admission. In the ER, the patient received 2 mg magnesium and 1 L normal saline bolus. The patient had mild IV fluids during hospital stay due to diagnosis of CHF. Nephrology was consulted and gave recommendations including to decrease metolazone use as above. The patient's creatinine improved during hospital stay and was stable at 4.8. We began to titrate the patient on insulin NPH due to financial restraints with Lantus and Humalog. Titrated up to 58 units b.i.d. with blood glucoses still ranging in the high 100s to mid 200s with glucose checks. The patient's blood pressure was persistently elevated in the 150s to 160s over 80s to 90s for the most part. We discontinued home amlodipine and started nifedipine XL to attempt better blood pressure control. The patient will likely need continued outpatient titration. Dr. Sutton with Nephrology did not recommend dialysis during this hospital stay. The patient was stable and continually improved during the hospital stay. DISPOSITION: Stable. DISCHARGE INSTRUCTIONS: 1. Location, home. 2. Diet, renal, heart healthy diet. 3. Activity, as tolerated. 4. Followup, the patient instructed to follow up with primary care physician, Dr. Hutton, within 2 weeks and food clerk, Dr. Hartley, within 7 days. Job ID: [id number] MTDD
[2020-04-19] MEDS ORDERED: NPH, Human Insulin Isophane 300 UNIT/3 ML VIAL SC SCH (08:00)
--- NOTE | 2020-05-08 13:06 | EKG ---
Test Reason : CHEST PAIN Blood Pressure : / mmHG Vent. Rate : 069 BPM Atrial Rate : 069 BPM P-R Int : 142 ms QRS Dur : 098 ms QT Int : 498 ms P-R-T Axes : 018 -22 -04 degrees QTc Int : 533 ms Sinus rhythm with Premature atrial complexes with Abberant conduction Moderate voltage criteria for LVH, may be normal variant Inferior infarct , age undetermined Prolonged QT Abnormal ECG Confirmed by MIREILLE CHOI DO ([id number]), video tape editor RACHELE BUSBY ([id number]) on 05/08/2020 1:05:40 PM Referred By: Confirmed By:MIREILLE CHOI DO
== END 2020-04-18 17:02 | disposition home or self-care (01) | DRG 683 ==
LOC: ERS 14:55 → SURG A 19:00
PROVIDERS: ADMIT Family Medicine; ATTEND Family Medicine
DX: N17.9 Acute kidney failure, unspecified (principal); I50.32 Chronic diastolic (congestive) heart failure; Z23 Encounter for immunization; E87.1 Hypo-osmolality and hyponatremia; I13.2 Hypertensive heart and chronic kidney disease with heart failure and with stage 5 chronic kidney disease, or end stage renal disease; E87.2 Acidosis; E11.22 Type 2 diabetes mellitus with diabetic chronic kidney disease; K21.9 Gastro-esophageal reflux disease without esophagitis; F41.9 Anxiety disorder, unspecified; F32.9 Major depressive disorder, single episode, unspecified; E66.9 Obesity, unspecified; E11.649 Type 2 diabetes mellitus with hypoglycemia without coma; R42 Dizziness and giddiness; I25.10 Atherosclerotic heart disease of native coronary artery without angina pectoris; I16.0 Hypertensive urgency; N18.5 Chronic kidney disease, stage 5; D63.1 Anemia in chronic kidney disease; E11.65 Type 2 diabetes mellitus with hyperglycemia; E11.40 Type 2 diabetes mellitus with diabetic neuropathy, unspecified; Z20.828 Contact with and (suspected) exposure to other viral communicable diseases; I69.351 Hemiplegia and hemiparesis following cerebral infarction affecting right dominant side; Z79.82 Long term (current) use of aspirin; Z79.4 Long term (current) use of insulin; Z79.899 Other long term (current) drug therapy; Z88.1 Allergy status to other antibiotic agents; Z88.8 Allergy status to other drugs, medicaments and biological substances; I25.2 Old myocardial infarction; Z68.32 Body mass index [BMI] 32.0-32.9, adult; Z95.5 Presence of coronary angioplasty implant and graft; Z87.891 Personal history of nicotine dependence
CPT/HCPCS: 36415; 36416; 70450; 71045; 76770; 80048; 80053; 82010; 82570; 83036; 83735; 84100; 84156; 84300; 84443; 84484; 84703; 85025; 87635; 90471; 90662; 93005; 96365; 96366; 96368; 96375; G0008; J1200; J1644; J1815; J2765; J3475; Q0162; U0003

== ENCOUNTER 2022-08-15 18:43 | Emergency (ER) | payer MEDICARE ==
[2022-08-15 19:48] LABS: #Monocytes 0.4 thou/uL (0.11-0.59); #Neutrophils 5.4 thou/uL (1.40-6.50); %Basophils 0.4 % (0.0-1.0); %Eosinophils 0.4 % (0.0-10.0); %Lymphocytes 24.9 % (21.0-51.0); %Monocytes 5.5 % (0.0-10.0); %Neutrophils 68.8 % (42.0-75.0); Hemoglobin 9.5 g/dL (12.0-16.0); Mean Corpuscular HGB CONC 32.8 g/dL (32.0-36.0); Mean Corpuscular Hemoglobin 32.9 pg (27.0-31.0); Mean Platelet Volume 7.1 fL (7.4-10.4); Platelet Count 302 10x3/uL (130-400); RBC Distribution Width 13.3 % (11.5-14.5); White Blood Cell (WBC) Count 7.9 10x3/uL (4.8-10.8)
[2022-08-15 20:10] LABS: ALT (SGPT) 12 U/L (8-55); AST (SGOT) 22 U/L (5-34); Alkaline Phosphatase 246 U/L (40-110); Anion Gap 17 mmol/L (10-20); BUN (Urea Nitrogen) 21 mg/dL (7.0-18.7); Bilirubin, Total 0.5 mg/dL (0.2-1.2); Calc. Creatinine Clearance 0 mL/min (70-130); Calcium 8.4 mg/dL (7.8-10.44); Carbon Dioxide 27 mmol/L (22-29); Chloride 97 mmol/L (98-107); Estimated GFR 9; Globulin 3.8 g/dL (2.4-3.5); Glucose 81 mg/dL (70-105); Lipase 21 U/L (8-78); Potassium 3.8 mmol/L (3.5-5.1); Protein, Total 6.8 g/dL (6.0-8.3); Sodium 137 mmol/L (136-145)
[2022-08-15] MEDS ORDERED: Morphine 4 MG/ML VIAL ONE (22:25)
[2022-08-15] MEDS ORDERED: Furosemide 40 MG/4 ML VIAL ONE (22:25)
== END 2022-08-15 23:03 | disposition home or self-care (01) ==
LOC: ERS 18:43
DX: N17.9 Acute kidney failure, unspecified (principal); R18.8 Other ascites; E11.22 Type 2 diabetes mellitus with diabetic chronic kidney disease; I12.0 Hypertensive chronic kidney disease with stage 5 chronic kidney disease or end stage renal disease; N18.6 End stage renal disease; I25.10 Atherosclerotic heart disease of native coronary artery without angina pectoris; I25.2 Old myocardial infarction; F17.210 Nicotine dependence, cigarettes, uncomplicated; Z99.2 Dependence on renal dialysis; Z79.899 Other long term (current) drug therapy
CPT/HCPCS: 80053; 83690; 84484; 85025; 93005; 96372; J1940; J2270

== ENCOUNTER 2022-08-24 19:18 | Inpatient (IN) | payer MEDICARE ==
[2022-08-24 20:01] LABS: #Lymphocytes 1.1 thou/uL (1.20-3.40); #Monocytes 0.4 thou/uL (0.11-0.59); #Neutrophils 5.7 thou/uL (1.40-6.50); %Basophils 0.2 % (0.0-1.0); %Eosinophils 0.7 % (0.0-10.0); %Monocytes 5.7 % (0.0-10.0); %Neutrophils 78.4 % (42.0-75.0); Hemoglobin 8.8 g/dL (12.0-16.0); Mean Corpuscular HGB CONC 32.3 g/dL (32.0-36.0); Mean Corpuscular Hemoglobin 32.8 pg (27.0-31.0); Mean Platelet Volume 7.2 fL (7.4-10.4); Platelet Count 238 10x3/uL (130-400); Red Blood Cell (RBC) Count 2.69 mill/uL (4.20-5.40); White Blood Cell (WBC) Count 7.2 10x3/uL (4.8-10.8)
[2022-08-24 20:24] LABS: ALT (SGPT) 7 U/L (8-55); AST (SGOT) 14 U/L (5-34); Albumin 2.9 g/dL (3.5-5.0); Alkaline Phosphatase 209 U/L (40-110); Anion Gap 14 mmol/L (10-20); BUN (Urea Nitrogen) 23 mg/dL (7.0-18.7); Bilirubin, Total 0.4 mg/dL (0.2-1.2); CK (CPK) 56 U/L (29-168); Calc. Creatinine Clearance 0 mL/min (70-130); Carbon Dioxide 28 mmol/L (22-29); Chloride 96 mmol/L (98-107); Estimated GFR 10; Globulin 3.2 g/dL (2.4-3.5); Glucose 100 mg/dL (70-105); Lipase 5 U/L (8-78); Potassium 3.9 mmol/L (3.5-5.1); Protein, Total 6.1 g/dL (6.0-8.3); Sodium 134 mmol/L (136-145)
[2022-08-24] MEDS ORDERED: Dextrose 5% in Water 1,000 ML IV PRN (21:37)
[2022-08-24] MEDS ORDERED: HumaLOG 300 UNITS/3 ML VIAL SC PRN ×2 (21:37)
[2022-08-24] MEDS ORDERED: Dextrose 50% Abboject 50 ML SYRINGE SLOW IVP PRN (21:37)
[2022-08-24] MEDS ORDERED: Acetaminophen 650 MG Suppository PR PRN (21:37)
[2022-08-24] MEDS ORDERED: Ondansetron ODT 4 MG TAB SL PRN (21:45)
[2022-08-24] MEDS ORDERED: Ondansetron PF 4 MG/2 ML Vial IVP PRN (21:45)
[2022-08-24] MEDS: Nitroglycerin 2% Ointment 1 INCH/1 GM Packet TOP SCH (22:41)
[2022-08-24 23:26] VITALS: BMI 29.0
[2022-08-25 00:08] LABS: Troponin I 0.051 ng/mL (< 0.028)
[2022-08-25 00:27] LABS: BHCG - Serum Negative (NEGATIVE); Pregs Control Background? CLEAR/WHITE (CLR/WHITE); Pregs Control Bar Appear? YES (CONTROL BAR)
[2022-08-25] MEDS: hydrALAZINE 20 MG/ML VIAL SLOW IVP PRN ×2 (00:42→08:34)
[2022-08-25] MEDS: Morphine 4 MG/ML VIAL SLOW IVP PRN ×2 (02:46→09:38)
[2022-08-25] MEDS ORDERED: HYDROcodone/Acetaminophen 5/325 mg Tablet PO SCH (05:30)
[2022-08-25 05:43] LABS: #Eosinphils 0.1 thou/uL (0.0-0.7); #Lymphocytes 1.5 thou/uL (1.20-3.40); #Monocytes 0.3 thou/uL (0.11-0.59); #Neutrophils 5.2 thou/uL (1.40-6.50); %Basophils 0.3 % (0.0-1.0); %Eosinophils 0.8 % (0.0-10.0); %Lymphocytes 21.3 % (21.0-51.0); %Monocytes 4.7 % (0.0-10.0); Hemoglobin 9.9 g/dL (12.0-16.0); Mean Corpuscular HGB CONC 32.9 g/dL (32.0-36.0); Mean Corpuscular Hemoglobin 32.9 pg (27.0-31.0); Mean Corpuscular Volume 99.8 fl (78.0-98.0); Platelet Count 267 10x3/uL (130-400); RBC Distribution Width 14.1 % (11.5-14.5); Red Blood Cell (RBC) Count 3.01 mill/uL (4.20-5.40); White Blood Cell (WBC) Count 7.1 10x3/uL (4.8-10.8)
[2022-08-25 06:03] LABS: Anion Gap 16 mmol/L (10-20); BUN (Urea Nitrogen) 26 mg/dL (7.0-18.7); Calc. Creatinine Clearance 18 mL/min (70-130); Calcium 8.4 mg/dL (7.8-10.44); Carbon Dioxide 27 mmol/L (22-29); Chloride 95 mmol/L (98-107); Estimated GFR 9; Glucose 79 mg/dL (70-105); Iron 51 ug/dL (50-170); Iron Binding Capacity, Total 159 mcg/dL (265-497); Potassium 3.8 mmol/L (3.5-5.1); Sodium 134 mmol/L (136-145)
[2022-08-25 06:04] LABS: Iron 52 ug/dL (50-170)
[2022-08-25 06:06] LABS: Troponin I 0.093 ng/mL (< 0.028)
[2022-08-25] MEDS: Nitroglycerin 2% Ointment 1 INCH/1 GM Packet TOP SCH ×3 (06:08→21:11)
[2022-08-25 06:28] LABS: Ferritin 1125.01 ng/mL (10-291)
[2022-08-25] MEDS ORDERED: Nitroglycerin 0.4 MG TAB (25 Tab Bottle) SL PRN (08:05)
[2022-08-25] MEDS: Clopidogrel Bisulfate 75 MG TAB PO SCH (08:18)
[2022-08-25] MEDS: Aspirin 325 MG TAB PO SCH (08:18)
[2022-08-25] MEDS ORDERED: Ondansetron PF 4 MG/2 ML Vial IVP PRN (08:58)
[2022-08-25] MEDS ORDERED: Heparin 10,000 UNITS/ 10 ML VIAL ONE (10:11)
[2022-08-25 10:42] LABS: HBSAB Concentration Less than 8.00 mIU/mL; HBSAg Index 0.36 S/CO (0-0.99); Hep B Core Total Ab Non-Reactive (NonReactive); Hep B Core Total Index 0.24 S/CO (0-0.79); Hep B Surf AB Non-Reactive (NonReactive); Hep B Surf Ag Non-Reactive S/CO (NonReactive); Hep C IgG Ab Non-Reactive (NonReactive); Hep C Index 0.12 S/CO (0-0.79)
[2022-08-25] MEDS ORDERED: cloNIDine 0.1 MG TAB PO PRN (11:15)
[2022-08-25] MEDS ORDERED: Cyclobenzaprine 10 MG TAB PO SCH (11:30)
[2022-08-25] MEDS: Acetaminophen 325 MG TAB PO PRN (11:33)
[2022-08-25] MEDS: Carvedilol 25 MG TAB PO SCH (15:48)
[2022-08-25] MEDS: hydrALAZINE 25 MG TAB PO SCH ×2 (15:48→21:12)
[2022-08-25] MEDS: Atorvastatin Calcium 40 MG TAB PO SCH (21:11)
[2022-08-25] MEDS: Gabapentin 300 MG CAP PO SCH (21:11)
[2022-08-25] MEDS: Isosorbide Mononitrate 20 MG TAB PO SCH (21:12)
[2022-08-26] MEDS ORDERED: Cyclobenzaprine 10 MG TAB PO SCH (01:45)
[2022-08-26] MEDS: hydrALAZINE 20 MG/ML VIAL SLOW IVP PRN (04:27)
[2022-08-26] MEDS: Nitroglycerin 2% Ointment 1 INCH/1 GM Packet TOP SCH ×3 (06:36→23:19)
[2022-08-26] MEDS: Aspirin 325 MG TAB PO SCH (08:57)
[2022-08-26] MEDS: Carvedilol 25 MG TAB PO SCH ×2 (08:57→17:47)
[2022-08-26] MEDS: hydrALAZINE 25 MG TAB PO SCH ×3 (08:57→23:18)
[2022-08-26] MEDS: NIFEdipine XL 90 MG TAB PO SCH (08:57)
[2022-08-26] MEDS: Escitalopram Oxalate 20 mg Tablet PO SCH (08:57)
[2022-08-26] MEDS: Gabapentin 300 MG CAP PO SCH ×2 (08:57→20:43)
[2022-08-26] MEDS: Isosorbide Mononitrate 20 MG TAB PO SCH ×2 (08:57→20:43)
[2022-08-26] MEDS: Clopidogrel Bisulfate 75 MG TAB PO SCH (08:58)
[2022-08-26] MEDS: Acetaminophen 325 MG TAB PO PRN (11:28)
[2022-08-26] MEDS: Morphine 4 MG/ML VIAL SLOW IVP PRN (13:36)
[2022-08-26] MEDS ORDERED: Scopolamine 1.5 mg/72 hour Patch TD SCH (16:15)
[2022-08-26 17:33] LABS: #Eosinphils 0.1 thou/uL (0.0-0.7); #Lymphocytes 1.3 thou/uL (1.20-3.40); #Monocytes 0.4 thou/uL (0.11-0.59); #Neutrophils 4.7 thou/uL (1.40-6.50); %Basophils 0.4 % (0.0-1.0); %Eosinophils 1.3 % (0.0-10.0); %Lymphocytes 20.5 % (21.0-51.0); %Monocytes 5.3 % (0.0-10.0); %Neutrophils 72.4 % (42.0-75.0); Hemoglobin 9.1 g/dL (12.0-16.0); Mean Corpuscular HGB CONC 32.8 g/dL (32.0-36.0); Mean Corpuscular Hemoglobin 33.2 pg (27.0-31.0); Mean Platelet Volume 6.9 fL (7.4-10.4); Platelet Count 213 10x3/uL (130-400); RBC Distribution Width 14.4 % (11.5-14.5); Red Blood Cell (RBC) Count 2.74 mill/uL (4.20-5.40); White Blood Cell (WBC) Count 6.5 10x3/uL (4.8-10.8)
[2022-08-26 17:47] LABS: Prothrombin Time 13.4 sec (12.0-14.7)
[2022-08-26] MEDS: Cyclobenzaprine 10 MG TAB PO PRN (17:47)
[2022-08-26] MEDS: Atorvastatin Calcium 40 MG TAB PO SCH (20:45)
[2022-08-26] MEDS: HYDROcodone/Acetaminophen 5/325 mg Tablet PO PRN (20:45)
[2022-08-27] MEDS: Nitroglycerin 2% Ointment 1 INCH/1 GM Packet TOP SCH ×3 (05:16→20:44)
[2022-08-27] MEDS: Aspirin 325 MG TAB PO SCH (08:35)
[2022-08-27] MEDS: Carvedilol 25 MG TAB PO SCH ×2 (08:36→17:41)
[2022-08-27] MEDS: Clopidogrel Bisulfate 75 MG TAB PO SCH (08:36)
[2022-08-27] MEDS: Gabapentin 300 MG CAP PO SCH ×2 (08:37→20:42)
[2022-08-27] MEDS: Escitalopram Oxalate 20 mg Tablet PO SCH (08:37)
[2022-08-27] MEDS: hydrALAZINE 25 MG TAB PO SCH ×3 (08:38→20:42)
[2022-08-27] MEDS: NIFEdipine XL 90 MG TAB PO SCH (08:39)
[2022-08-27] MEDS: Isosorbide Mononitrate 20 MG TAB PO SCH ×2 (08:39→20:42)
[2022-08-27] MEDS ORDERED: Lidocaine 1% PF 5 ML VIAL ONE (09:58)
[2022-08-27] MEDS ORDERED: Sodium Bicarbonate 2.5 MEQ/5 ML VIAL ONE (09:58)
[2022-08-27] MEDS: HYDROcodone/Acetaminophen 5/325 mg Tablet PO PRN ×2 (11:51→22:55)
[2022-08-27 12:04] LABS: RBC Count-Automated (BF) 0 /cu.mm; WBC/Nucleated-Auto (BF) 360 /cu.mm
[2022-08-27 12:27] LABS: BF Color Yellow; Body Fluid Source Ascites Body Fluid; Clarity Clear (Clear); Tube # EDTA
[2022-08-27 12:31] LABS: BF Segmented Neutrophils 18 %; Cell Count Non Hematic 50 %; Lymphocytes 31 %
[2022-08-27] MEDS: Albumin 25% 25 GM/100 ML BOT IVPB SCH ×2 (14:01→20:43)
[2022-08-27] MEDS: Morphine 4 MG/ML VIAL SLOW IVP PRN (14:15)
[2022-08-27] MEDS: Atorvastatin Calcium 40 MG TAB PO SCH (20:42)
[2022-08-27] MEDS: Cyclobenzaprine 10 MG TAB PO PRN (22:55)
[2022-08-28] MEDS: Albumin 25% 25 GM/100 ML BOT IVPB SCH ×2 (01:24→09:13)
[2022-08-28] MEDS: Morphine 4 MG/ML VIAL SLOW IVP PRN (02:20)
[2022-08-28] MEDS: Nitroglycerin 2% Ointment 1 INCH/1 GM Packet TOP SCH ×3 (05:13→21:08)
[2022-08-28] MEDS: Carvedilol 25 MG TAB PO SCH ×2 (09:13→17:41)
[2022-08-28] MEDS: Escitalopram Oxalate 20 mg Tablet PO SCH (09:13)
[2022-08-28] MEDS: Gabapentin 300 MG CAP PO SCH ×2 (09:13→20:27)
[2022-08-28] MEDS: Aspirin 325 MG TAB PO SCH (09:13)
[2022-08-28] MEDS: Cyclobenzaprine 10 MG TAB PO PRN ×2 (09:13→20:30)
[2022-08-28] MEDS: Clopidogrel Bisulfate 75 MG TAB PO SCH (09:13)
[2022-08-28] MEDS: hydrALAZINE 25 MG TAB PO SCH ×3 (09:13→20:27)
[2022-08-28] MEDS: Isosorbide Mononitrate 20 MG TAB PO SCH ×2 (09:14→20:27)
[2022-08-28] MEDS: NIFEdipine XL 90 MG TAB PO SCH (09:14)
[2022-08-28] MEDS ORDERED: Iopamidol 370 76% 100 ML VIAL ONE (09:21)
[2022-08-28] MEDS ORDERED: Heparin 10,000 UNITS/ 10 ML VIAL ONE (10:31)
[2022-08-28] MEDS ORDERED: Nitroglycerin 100MG/250ML BOT 0 ML ONE (11:30)
[2022-08-28] MEDS ORDERED: Lidocaine 1% (PF) 30 ML VIAL ONE (11:30)
[2022-08-28] MEDS ORDERED: Verapamil 5 MG/2 ML VIAL ONE (12:32)
[2022-08-28] MEDS ORDERED: Midazolam HCl 2 mg/2 ml Vial ONE (12:33)
[2022-08-28] MEDS ORDERED: FENTANYL 50 MCG/ML 1 ML VIAL ONE (12:34)
[2022-08-28] MEDS ORDERED: Nitroglycerin 0.4 MG TAB (25 Tab Bottle) SL PRN (13:06)
[2022-08-28] MEDS ORDERED: Sodium Chloride 0.9% 200 ML IV PRN (13:06)
[2022-08-28] MEDS ORDERED: Acetaminophen/Codeine 30-300mg Tablet PO PRN (13:06)
[2022-08-28] MEDS ORDERED: Sodium Chloride 0.9% 250 ML 250 ML IVPB SCH (15:30)
[2022-08-28] MEDS ORDERED: cefTRIAXone\\ROCEPHIN 1 GM in Sodium Chloride 0.9% 100 ML IVPB SCH (16:00)
[2022-08-28] MEDS ORDERED: Albumin 25% 25 GM/100 ML BOT IVPB SCH (16:00)
[2022-08-28 17:00] LABS: #Eosinphils 0.1 thou/uL (0.0-0.7); #Lymphocytes 1.2 thou/uL (1.20-3.40); #Monocytes 0.2 thou/uL (0.11-0.59); #Neutrophils 3.8 thou/uL (1.40-6.50); %Basophils 0.5 % (0.0-1.0); %Eosinophils 1.6 % (0.0-10.0); %Lymphocytes 21.9 % (21.0-51.0); %Monocytes 4.3 % (0.0-10.0); %Neutrophils 71.7 % (42.0-75.0); Hemoglobin 7.5 g/dL (12.0-16.0); Mean Corpuscular HGB CONC 32.3 g/dL (32.0-36.0); Mean Corpuscular Hemoglobin 32.6 pg (27.0-31.0); Mean Platelet Volume 6.8 fL (7.4-10.4); Platelet Count 158 10x3/uL (130-400); White Blood Cell (WBC) Count 5.3 10x3/uL (4.8-10.8)
[2022-08-28] MEDS: Atorvastatin Calcium 40 MG TAB PO SCH (20:27)
[2022-08-28] MEDS: Acetaminophen/Codeine 30-300mg Tablet PO PRN (20:30)
[2022-08-29] MEDS: Acetaminophen/Codeine 30-300mg Tablet PO PRN (02:25)
[2022-08-29] MEDS: Cyclobenzaprine 10 MG TAB PO PRN (02:27)
[2022-08-29] MEDS: Nitroglycerin 2% Ointment 1 INCH/1 GM Packet TOP SCH ×2 (04:49→14:05)
[2022-08-29] MEDS: Gabapentin 300 MG CAP PO SCH (09:55)
[2022-08-29] MEDS: NIFEdipine XL 90 MG TAB PO SCH (09:55)
[2022-08-29] MEDS: Isosorbide Mononitrate 20 MG TAB PO SCH (09:56)
[2022-08-29] MEDS: hydrALAZINE 25 MG TAB PO SCH (09:56)
[2022-08-29] MEDS: Carvedilol 25 MG TAB PO SCH (09:57)
[2022-08-29] MEDS: Aspirin 325 MG TAB PO SCH (09:57)
[2022-08-29] MEDS: Escitalopram Oxalate 20 mg Tablet PO SCH (09:57)
[2022-08-29] MEDS: Clopidogrel Bisulfate 75 MG TAB PO SCH (09:57)
[2022-08-29] MEDS ORDERED: EPOETIN ALFA-EPBX (ESRD) 10,000 UNIT/ML VIAL SC SCH (11:15)
[2022-08-29] MEDS ORDERED: Morphine IR 10 MG/5 ML UDCUP PO SCH (12:00)
[2022-08-29 13:23] VITALS: BP 113/61; TEMP 98
[2022-08-30] MEDS ORDERED: EPOETIN ALFA-EPBX (ESRD) 10,000 UNIT/ML VIAL IVP SCH (12:00)
== END 2022-08-29 14:20 | disposition home or self-care (01) | DRG 280 ==
LOC: ERS 19:18 → OBSVTOIN 21:25 → 2SW 21:25
PROVIDERS: ADMIT Internal Medicine; ATTEND Internal Medicine
PROC: 0W9G3ZZ Drainage of Peritoneal Cavity, Percutaneous Approach (ICD-10-PCS; principal; 2022-08-27)
PROC: 4A023N7 Measurement of Cardiac Sampling and Pressure, Left Heart, Percutaneous Approach (ICD-10-PCS; 2022-08-28)
PROC: B2111ZZ Fluoroscopy of Multiple Coronary Arteries using Low Osmolar Contrast (ICD-10-PCS; 2022-08-28)
DX: I13.2 Hypertensive heart and chronic kidney disease with heart failure and with stage 5 chronic kidney disease, or end stage renal disease (principal); I50.23 Acute on chronic systolic (congestive) heart failure; I21.A1 Myocardial infarction type 2; N18.6 End stage renal disease; R18.8 Other ascites; I16.1 Hypertensive emergency; E87.1 Hypo-osmolality and hyponatremia; N25.81 Secondary hyperparathyroidism of renal origin; Z20.822 Contact with and (suspected) exposure to COVID-19; E11.22 Type 2 diabetes mellitus with diabetic chronic kidney disease; I25.10 Atherosclerotic heart disease of native coronary artery without angina pectoris; G89.29 Other chronic pain; K21.9 Gastro-esophageal reflux disease without esophagitis; F17.210 Nicotine dependence, cigarettes, uncomplicated; D63.1 Anemia in chronic kidney disease; G25.81 Restless legs syndrome; I08.1 Rheumatic disorders of both mitral and tricuspid valves; Z99.2 Dependence on renal dialysis; Z89.511 Acquired absence of right leg below knee; I25.2 Old myocardial infarction; Z86.73 Personal history of transient ischemic attack (TIA), and cerebral infarction without residual deficits; Z88.1 Allergy status to other antibiotic agents; Z88.8 Allergy status to other drugs, medicaments and biological substances; Z91.09 Other allergy status, other than to drugs and biological substances; Z79.899 Other long term (current) drug therapy; Z79.52 Long term (current) use of systemic steroids; Z98.51 Tubal ligation status; Z95.5 Presence of coronary angioplasty implant and graft
CPT/HCPCS: 36415; 36416; 49083; 71045; 74176; 80048; 80053; 82040; 82042; 82550; 82607; 82728; 83540; 83550; 83690; 83880; 84155; 84484; 84703; 85025; 85060; 85610; 86704; 87070; 87205; 89051; 90935; 93005; 93306; 93458; 94760; 96372; 97139; C1769; C1894; G0257; J0360; J0696; J1644; J1650; J2001; J2250; J2270; J2405; J3010; J3490; J7030; J7050; P9047; Q5105; Q9967; U0003; U0005

== ENCOUNTER 2023-11-21 14:44 | Emergency (ER) | payer MEDICAID, OTHER ==
[2023-11-21 16:40] LABS: #Basophils Less than 0.03 10x3/uL (0.0-0.2); %Basophils 0.4 % (0.0-1.0); %Eosinophils 0.9 % (0.0-10.0); %Lymphocytes 14.8 % (21.0-51.0); %Neutrophils 78.7 % (42.0-75.0); Hematocrit 28.9 % (36.0-47.0); Hemoglobin 9.5 g/dL (12.0-16.0); Mean Corpuscular HGB CONC 32.9 g/dL (32.0-36.0); Mean Corpuscular Hemoglobin 32.5 pg (27.0-31.0); Mean Platelet Volume 10.3 fL (7.4-10.4); Platelet Count 156 10x3/uL (130-400); RBC Distribution Width 13.6 % (11.5-14.5); Red Blood Cell (RBC) Count 2.92 mill/uL (4.20-5.40)
[2023-11-21 16:57] LABS: ALT (SGPT) 12 U/L (8-55); AST (SGOT) 16 U/L (5-34); Albumin 2.9 g/dL (3.5-5.0); Alkaline Phosphatase 157 U/L (40-110); Anion Gap 18 mmol/L (10-20); BUN (Urea Nitrogen) 17 mg/dL (7.0-18.7); Bilirubin, Total 0.5 mg/dL (0.2-1.2); Calc. Creatinine Clearance 0 mL/min (70-130); Calcium 8.8 mg/dL (7.8-10.44); Carbon Dioxide 28 mmol/L (22-29); Chloride 98 mmol/L (98-107); Estimated GFR 12; Globulin 3.7 g/dL (2.4-3.5); Glucose 87 mg/dL (70-105); Potassium 4.5 mmol/L (3.5-5.1); Protein, Total 6.6 g/dL (6.0-8.3); Sodium 139 mmol/L (136-145)
[2023-11-21 17:10] LABS: Critical Call Chem Troponin I SJOS.TNA @1710; Troponin I 0.843 ng/mL (< 0.028)
[2023-11-21] MEDS ORDERED: Aspirin Chewable 81 MG TAB ONE (17:23)
[2023-11-21 21:00] LABS: Critical Call Chem Troponin I DOWN; Troponin I 0.799 ng/mL (< 0.028)
[2023-11-21] MEDS ORDERED: HYDROcodone/Acetaminophen 5/325 mg Tablet ONE (22:08)
== END 2023-11-21 22:15 | disposition home or self-care (01) ==
LOC: ERS 14:44
DX: R07.89 Other chest pain (principal); J44.9 Chronic obstructive pulmonary disease, unspecified; I12.0 Hypertensive chronic kidney disease with stage 5 chronic kidney disease or end stage renal disease; N18.6 End stage renal disease; E11.22 Type 2 diabetes mellitus with diabetic chronic kidney disease; F17.210 Nicotine dependence, cigarettes, uncomplicated; Z79.4 Long term (current) use of insulin
CPT/HCPCS: 36415; 80053; 84484; 85025; 93005

== ENCOUNTER 2024-01-17 01:20 | Observation (INO) | payer OTHER, MEDICAID ==
[2024-01-17] MEDS ORDERED: Ondansetron ODT 4 MG TAB PO PRN (01:39)
[2024-01-17] MEDS ORDERED: Bisacodyl 5 MG TAB PO PRN (01:39)
[2024-01-17 01:56] VITALS: BMI 35.8
[2024-01-17] MEDS ORDERED: Buprenorphine 2mg/Naloxone 0.5mg per 1 FILM SL SCH (04:15)
[2024-01-17] MEDS: tiZANidine HCl 4 MG TAB PO PRN (04:35)
[2024-01-17] MEDS: hydrOXYzine 25 MG TAB PO SCH (04:36)
[2024-01-17] MEDS: traZODone HCl 50 MG TAB PO SCH (04:36)
[2024-01-17] MEDS: HYDROcodone/Acetaminophen 10/325 mg Tablet PO PRN (04:39)
[2024-01-17 05:44] LABS: #Basophils 0.05 10x3/uL (0.0-0.2); %Basophils 0.8 % (0.0-1.0); %Eosinophils 1.1 % (0.0-10.0); %Lymphocytes 21.3 % (21.0-51.0); %Monocytes 5.2 % (0.0-10.0); %Neutrophils 71.4 % (42.0-75.0); Hematocrit 33.3 % (36.0-47.0); Hemoglobin 10.3 g/dL (12.0-16.0); Mean Corpuscular HGB CONC 30.9 g/dL (32.0-36.0); Mean Corpuscular Volume 100.3 fL (78.0-98.0); Mean Platelet Volume 11.2 fL (7.4-10.4); Platelet Count 168 10x3/uL (130-400); RBC Distribution Width 13.6 % (11.5-14.5); Red Blood Cell (RBC) Count 3.32 mill/uL (4.20-5.40)
[2024-01-17 06:22] LABS: ALT (SGPT) 7 U/L (8-55); AST (SGOT) 16 U/L (5-34); Albumin 3.1 g/dL (3.5-5.0); Alkaline Phosphatase 97 U/L (40-110); Anion Gap 19 mmol/L (10-20); BUN (Urea Nitrogen) 42 mg/dL (7.0-18.7); Bilirubin, Total 0.5 mg/dL (0.2-1.2); Calc. Creatinine Clearance 14 mL/min (70-130); Calcium 8.3 mg/dL (7.8-10.44); Carbon Dioxide 19 mmol/L (22-29); Chloride 101 mmol/L (98-107); Estimated GFR 6; Globulin 3.8 g/dL (2.4-3.5); Glucose 86 mg/dL (70-105); Protein, Total 6.9 g/dL (6.0-8.3); Sodium 134 mmol/L (136-145)
[2024-01-17] MEDS ORDERED: Non-Formulary Item 1 EACH (Esomeprazole Magnesium [Nexium] 20 MG Capsule.Dr) PO SCH (09:00)
[2024-01-17] MEDS: Heparin 5,000 UNITS/ML VIAL SC SCH (09:37)
[2024-01-17] MEDS ORDERED: Lidocaine 1% PF 5 ML VIAL ONE (10:24)
[2024-01-17] MEDS: Gabapentin 300 MG CAP PO SCH (11:17)
[2024-01-17] MEDS: Carvedilol 25 MG TAB PO SCH (11:17)
[2024-01-17] MEDS: hydrALAZINE 25 MG TAB PO SCH (11:18)
[2024-01-17] MEDS ORDERED: Albumin 25% 100 ML ONE (11:20)
[2024-01-17 11:29] LABS: Magnesium 2.1 mg/dL (1.6-2.6); Phosphorus 4.8 mg/dL (2.3-4.7)
[2024-01-17] MEDS: Isosorbide Mononitrate 20 MG TAB PO SCH (12:15)
[2024-01-17] MEDS: Clopidogrel Bisulfate 75 MG TAB PO SCH (12:15)
[2024-01-17] MEDS: Citalopram 20 MG TAB PO SCH (12:15)
[2024-01-17] MEDS: Pantoprazole DR 40 MG TAB PO SCH (12:16)
[2024-01-17 14:04] LABS: HBSAB Concentration Less than 8.00 mIU/mL; HBsAg Index 0.25 S/CO (0-0.99); Hep B Surf AB NONREACTIVE (NonReactive); Hep B Surf Ag NONREACTIVE S/CO (NonReactive); Hep C IgG Ab NONREACTIVE S/CO (NonReactive); Hep C Index 0.11 S/CO (0-0.79)
[2024-01-17 14:37] LABS: Hep B Core Total Ab NONREACTIVE (NonReactive); Hep B Core Total Index 0.13 S/CO (0-0.79)
[2024-01-17] MEDS: NIFEdipine XL 90 MG ER.TAB PO SCH (16:13)
[2024-01-17 17:08] VITALS: BP 141/82; TEMP 98
[2024-01-17] MEDS ORDERED: traZODone HCl 50 MG TAB PO SCH (21:00)
[2024-01-17] MEDS ORDERED: Atorvastatin Calcium 40 MG TAB PO SCH (21:00)
[2024-01-17] MEDS ORDERED: hydrOXYzine 25 MG TAB PO SCH (21:00)
== END 2024-01-17 17:38 | disposition home or self-care (01) ==
LOC: 2NO 01:29 → INTOOBSV 01:29
PROVIDERS: ADMIT Family Medicine; ATTEND Family Medicine
PROC: 0W9G3ZZ Drainage of Peritoneal Cavity, Percutaneous Approach (ICD-10-PCS; principal; 2024-01-17)
DX: K74.60 Unspecified cirrhosis of liver (principal); R18.8 Other ascites; I13.2 Hypertensive heart and chronic kidney disease with heart failure and with stage 5 chronic kidney disease, or end stage renal disease; E11.22 Type 2 diabetes mellitus with diabetic chronic kidney disease; N18.6 End stage renal disease; I50.20 Unspecified systolic (congestive) heart failure; K21.9 Gastro-esophageal reflux disease without esophagitis; I25.10 Atherosclerotic heart disease of native coronary artery without angina pectoris; E78.5 Hyperlipidemia, unspecified; Z99.2 Dependence on renal dialysis; Z79.899 Other long term (current) drug therapy
CPT/HCPCS: 49083; 71045; 74176; 80053 ×2; 82140; 83605; 83690; 83735; 83880; 84100; 84484 ×2; 84703; 85025 ×2; 85610; 85730; 86704; 86706; 86803; 87040; 87340; 93005; G0378; P9047; 36415

== ENCOUNTER 2024-01-23 18:01 | Emergency (ER) | payer OTHER, MEDICAID ==
[2024-01-23 19:20] LABS: #Basophils 0.03 10x3/uL (0.0-0.2); %Basophils 0.6 % (0.0-1.0); %Eosinophils 1.1 % (0.0-10.0); %Lymphocytes 19.9 % (21.0-51.0); %Monocytes 5.3 % (0.0-10.0); %Neutrophils 72.9 % (42.0-75.0); Hematocrit 30.5 % (36.0-47.0); Hemoglobin 9.7 g/dL (12.0-16.0); Mean Corpuscular HGB CONC 31.8 g/dL (32.0-36.0); Mean Corpuscular Hemoglobin 31.5 pg (27.0-31.0); Mean Platelet Volume 10.7 fL (7.4-10.4); Platelet Count 152 10x3/uL (130-400); RBC Distribution Width 13.6 % (11.5-14.5); Red Blood Cell (RBC) Count 3.08 mill/uL (4.20-5.40)
[2024-01-23] MEDS ORDERED: fentaNYL 50 mcg/mL 1 mL Vial ONE (19:22)
[2024-01-23 19:36] LABS: ALT (SGPT) 14 U/L (8-55); AST (SGOT) 22 U/L (5-34); Alkaline Phosphatase 96 U/L (40-110); Anion Gap 16 mmol/L (10-20); BUN (Urea Nitrogen) 36 mg/dL (7.0-18.7); Bilirubin, Total 0.5 mg/dL (0.2-1.2); Calc. Creatinine Clearance 0 mL/min (70-130); Calcium 8.4 mg/dL (7.8-10.44); Carbon Dioxide 26 mmol/L (22-29); Chloride 99 mmol/L (98-107); Estimated GFR 7; Globulin 3.2 g/dL (2.4-3.5); Glucose 89 mg/dL (70-105); Potassium 5.1 mmol/L (3.5-5.1); Protein, Total 6.2 g/dL (6.0-8.3); Sodium 136 mmol/L (136-145)
[2024-01-23 20:36] LABS: #Basophils 0.03 10x3/uL (0.0-0.2); %Basophils 0.5 % (0.0-1.0); %Eosinophils 0.9 % (0.0-10.0); %Lymphocytes 21.9 % (21.0-51.0); %Monocytes 4.9 % (0.0-10.0); %Neutrophils 71.3 % (42.0-75.0); Hematocrit 30.4 % (36.0-47.0); Hemoglobin 9.7 g/dL (12.0-16.0); Mean Corpuscular HGB CONC 31.9 g/dL (32.0-36.0); Mean Corpuscular Hemoglobin 32.2 pg (27.0-31.0); Mean Platelet Volume 10.9 fL (7.4-10.4); Platelet Count 158 10x3/uL (130-400); RBC Distribution Width 13.6 % (11.5-14.5); Red Blood Cell (RBC) Count 3.01 mill/uL (4.20-5.40)
[2024-01-23 20:53] LABS: ALT (SGPT) 15 U/L (8-55); AST (SGOT) 22 U/L (5-34); Alkaline Phosphatase 92 U/L (40-110); Anion Gap 16 mmol/L (10-20); BUN (Urea Nitrogen) 35 mg/dL (7.0-18.7); Bilirubin, Total 0.4 mg/dL (0.2-1.2); Calc. Creatinine Clearance 0 mL/min (70-130); Calcium 8.4 mg/dL (7.8-10.44); Carbon Dioxide 24 mmol/L (22-29); Chloride 100 mmol/L (98-107); Estimated GFR 7; Globulin 3.3 g/dL (2.4-3.5); Glucose 84 mg/dL (70-105); Lipase 27 U/L (8-78); Magnesium 1.9 mg/dL (1.6-2.6); Protein, Total 6.3 g/dL (6.0-8.3); Sodium 135 mmol/L (136-145)
[2024-01-23 20:54] LABS: Acetaminophen Less than 10 mcg/mL (10.0-30.0); Alcohol Less than 10.0 mg/dL (Less than 10); Salicylate Less than 8.0 mg/dL (15.0-30.0)
[2024-01-23 20:55] LABS: Bacteria/HPF 2+ HPF (None Seen); Bilirubin Negative (Negative); Blood, Urine 1+ (Negative); CAUTI Indications for Culture Dysuria,urgency,freq; Clarity Extra Turbid (Clear); Glucose, Urine (Dipstick) Normal (Negative); Ketone, Urine Negative (Negative); Leukocyte 500 Leu/uL (Negative); Nitrite Negative (Negative); Protein, Urine (Dipstick) 100 mg/dL (Neg-Trace); Specific Gravity, Urine 1.008 (1.002-1.036); Urobilinogen Normal mg/dL (Less than 2); WBC/HPF Greater than 50 HPF (0-3)
[2024-01-23 20:56] LABS: Urine Culture Reflex Yes Yes
[2024-01-23 20:59] LABS: Amphetamine Not Detected (NotDetected); Barbiturates Screen Not Detected (NotDetected); Benzodiazepine Screen Detected (NotDetected); Cocaine Metabolite Screen Detected (NotDetected); Methadone Not Detected (NotDetected); Methamphetamine Not Detected (NotDetected); Opiate Screen Detected (NotDetected); Oxycodone Screen Not Detected (NotDetected); Phencyclidine (PCP) Not Detected (NotDetected); THC/Cannabinoid Screen Not Detected (NotDetected); Tricyclic Screen Not Detected (NotDetected)
== END 2024-01-23 22:00 | disposition home or self-care (01) ==
LOC: ERS 18:01
DX: R10.84 Generalized abdominal pain (principal); R10.817 Generalized abdominal tenderness; R18.8 Other ascites; I25.10 Atherosclerotic heart disease of native coronary artery without angina pectoris; I25.2 Old myocardial infarction; K74.60 Unspecified cirrhosis of liver; I13.2 Hypertensive heart and chronic kidney disease with heart failure and with stage 5 chronic kidney disease, or end stage renal disease; E11.22 Type 2 diabetes mellitus with diabetic chronic kidney disease; N18.6 End stage renal disease; I50.9 Heart failure, unspecified; F17.210 Nicotine dependence, cigarettes, uncomplicated; Z99.2 Dependence on renal dialysis; Z79.4 Long term (current) use of insulin; Z55.6 Problems related to health literacy
CPT/HCPCS: 74176; 80053 ×2; 80306; 80307; 81001; 83690; 83735; 85025 ×2; 87077; 87086; 93005; 94760; J3010; 36415; 87186; 96374

== ENCOUNTER → 2024-03-20 | Day surgery (SDC) | payer OTHER ==
[~2024-03-20] MED LIST changes: -Gadobenate Dimeglumine 529 MG/1 ML (20ML VIAL) ONE; +Lidocaine 1% PF 5 ML VIAL ONE; +Sodium Bicarbonate 2.5 MEQ/5 ML SDV ONE
[2024-03-20 14:50] LABS: #Basophils 0.03 10x3/uL (0.0-0.2); %Basophils 0.6 % (0.0-1.0); %Lymphocytes 24.8 % (21.0-51.0); %Monocytes 5.7 % (0.0-10.0); %Neutrophils 67.7 % (42.0-75.0); Hematocrit 30.6 % (36.0-47.0); Hemoglobin 9.7 g/dL (12.0-16.0); Mean Corpuscular HGB CONC 31.7 g/dL (32.0-36.0); Mean Corpuscular Hemoglobin 31.7 pg (27.0-31.0); Mean Platelet Volume 9.4 fL (7.4-10.4); Platelet Count 163 10x3/uL (130-400); RBC Distribution Width 13.6 % (11.5-14.5); Red Blood Cell (RBC) Count 3.06 mill/uL (4.20-5.40)
[2024-03-20 15:04] LABS: PTT 33.3 sec (22.9-36.1)
== END ==
LOC: ULT 14:21
PROVIDERS: ATTEND Family Medicine
PROC: 0W9G30Z Drainage of Peritoneal Cavity with Drainage Device, Percutaneous Approach (ICD-10-PCS; principal; 2024-03-20)
DX: K74.60 Unspecified cirrhosis of liver (principal); R18.8 Other ascites; F41.9 Anxiety disorder, unspecified; F32.A Depression, unspecified; I12.0 Hypertensive chronic kidney disease with stage 5 chronic kidney disease or end stage renal disease; N18.5 Chronic kidney disease, stage 5; E11.22 Type 2 diabetes mellitus with diabetic chronic kidney disease; Z79.899 Other long term (current) drug therapy; Z79.84 Long term (current) use of oral hypoglycemic drugs; Z98.890 Other specified postprocedural states; Z98.51 Tubal ligation status; F17.210 Nicotine dependence, cigarettes, uncomplicated; Z88.8 Allergy status to other drugs, medicaments and biological substances; Z91.048 Other nonmedicinal substance allergy status; Z91.81 History of falling
CPT/HCPCS: 36415; 49083; 85025; 85610; 85730

== ENCOUNTER 2024-04-17 12:24 | Day surgery (SDC) | payer OTHER, MEDICAID ==
[2024-04-17] MEDS ORDERED: Albumin 25% 0 ML ONE (12:37)
[2024-04-17] MEDS ORDERED: Lidocaine 1% PF 5 ML VIAL ONE (12:38)
[2024-04-17] MEDS ORDERED: Sodium Bicarbonate 2.5 MEQ/5 ML SDV ONE (12:38)
== END 2024-04-17 14:30 | disposition home or self-care (01) ==
LOC: ULT 12:24
PROVIDERS: ATTEND Family Medicine
PROC: 0W9G30Z Drainage of Peritoneal Cavity with Drainage Device, Percutaneous Approach (ICD-10-PCS; principal; 2024-04-17)
DX: K74.60 Unspecified cirrhosis of liver (principal); R18.8 Other ascites; F41.9 Anxiety disorder, unspecified; F32.A Depression, unspecified; I12.0 Hypertensive chronic kidney disease with stage 5 chronic kidney disease or end stage renal disease; N18.5 Chronic kidney disease, stage 5; E11.22 Type 2 diabetes mellitus with diabetic chronic kidney disease; E11.621 Type 2 diabetes mellitus with foot ulcer; E11.628 Type 2 diabetes mellitus with other skin complications; E11.319 Type 2 diabetes mellitus with unspecified diabetic retinopathy without macular edema; L97.521 Non-pressure chronic ulcer of other part of left foot limited to breakdown of skin; E11.42 Type 2 diabetes mellitus with diabetic polyneuropathy; Z98.51 Tubal ligation status; Z98.890 Other specified postprocedural states; F17.210 Nicotine dependence, cigarettes, uncomplicated; Z79.899 Other long term (current) drug therapy
CPT/HCPCS: 49083; P9047

== ENCOUNTER 2024-05-08 12:56 | Day surgery (SDC) | payer OTHER, MEDICAID ==
[2024-05-08 13:14] LABS: #Basophils 0.04 10x3/uL (0.0-0.2); %Basophils 0.8 % (0.0-1.0); %Lymphocytes 22.2 % (21.0-51.0); %Monocytes 5.6 % (0.0-10.0); %Neutrophils 70.2 % (42.0-75.0); Hematocrit 28.1 % (36.0-47.0); Hemoglobin 8.9 g/dL (12.0-16.0); Mean Corpuscular HGB CONC 31.7 g/dL (32.0-36.0); Mean Corpuscular Volume 97.9 fL (78.0-98.0); Mean Platelet Volume 10.5 fL (7.4-10.4); Platelet Count 160 10x3/uL (130-400); Red Blood Cell (RBC) Count 2.87 mill/uL (4.20-5.40)
[2024-05-08 13:43] LABS: INR-International Normal Ratio 1.2; PTT 36.1 sec (22.9-36.1); Prothrombin Time 15.2 sec (12.0-14.7)
[2024-05-08] MEDS ORDERED: Lidocaine 1% PF 5 ML VIAL ONE (14:17)
== END 2024-05-08 15:40 | disposition home or self-care (01) ==
LOC: ULT 12:56
PROVIDERS: ATTEND Family Medicine
PROC: 0W9G30Z Drainage of Peritoneal Cavity with Drainage Device, Percutaneous Approach (ICD-10-PCS; principal; 2024-05-08)
DX: K74.60 Unspecified cirrhosis of liver (principal); R18.8 Other ascites; F41.9 Anxiety disorder, unspecified; F32.A Depression, unspecified; I12.0 Hypertensive chronic kidney disease with stage 5 chronic kidney disease or end stage renal disease; N18.6 End stage renal disease; E11.40 Type 2 diabetes mellitus with diabetic neuropathy, unspecified; L97.521 Non-pressure chronic ulcer of other part of left foot limited to breakdown of skin; E11.621 Type 2 diabetes mellitus with foot ulcer; E11.319 Type 2 diabetes mellitus with unspecified diabetic retinopathy without macular edema; E11.628 Type 2 diabetes mellitus with other skin complications; E11.22 Type 2 diabetes mellitus with diabetic chronic kidney disease; F17.210 Nicotine dependence, cigarettes, uncomplicated; Z98.890 Other specified postprocedural states; Z79.899 Other long term (current) drug therapy; Z98.51 Tubal ligation status; Z88.8 Allergy status to other drugs, medicaments and biological substances; Z79.01 Long term (current) use of anticoagulants; Z79.82 Long term (current) use of aspirin
CPT/HCPCS: 49083; 85025; 85610; 85730

== ENCOUNTER → 2024-06-05 | Day surgery (SDC) | payer OTHER, MEDICAID | LOC: ULT 12:22 | PROVIDERS: ATTEND Family Medicine | PROC: 0W9G30Z Drainage of Peritoneal Cavity with Drainage Device, Percutaneous Approach (ICD-10-PCS; principal; 2024-06-05) | DX: R18.8 Other ascites (principal) | CPT/HCPCS: 49083 ==

== ENCOUNTER 2024-06-25 18:17 | Inpatient (IN) | payer OTHER ==
[~2024-06-25 18:17] MED LIST changes: +Heparin 10,000 UNITS/ 10 ML VIAL ONE; -Lidocaine 1% PF 5 ML VIAL ONE; -Sodium Bicarbonate 2.5 MEQ/5 ML SDV ONE
[2024-06-25] MEDS ORDERED: Morphine 4 MG/ML VIAL ONE (18:38)
[2024-06-25] MEDS ORDERED: Ondansetron PF 4 MG/2 ML Vial ONE (18:38)
[2024-06-25] MEDS ORDERED: Furosemide 40 MG (4 mL) VIAL ONE (18:49)
[2024-06-25 19:32] LABS: #Basophils 0.06 10x3/uL (0.0-0.2); %Basophils 0.6 % (0.0-1.0); %Eosinophils 0.9 % (0.0-10.0); %Lymphocytes 18.2 % (21.0-51.0); %Monocytes 4.5 % (0.0-10.0); %Neutrophils 74.3 % (42.0-75.0); Hematocrit 34.9 % (36.0-47.0); Hemoglobin 11.6 g/dL (12.0-16.0); Mean Corpuscular HGB CONC 33.2 g/dL (32.0-36.0); Mean Corpuscular Hemoglobin 31.5 pg (27.0-31.0); Mean Corpuscular Volume 94.8 fL (78.0-98.0); Mean Platelet Volume 9.8 fL (7.4-10.4); Platelet Count 284 10x3/uL (130-400); Red Blood Cell (RBC) Count 3.68 mill/uL (4.20-5.40)
[2024-06-25 19:56] LABS: Troponin I 0.814 ng/mL (< 0.028)
[2024-06-25 20:11] LABS: ALT (SGPT) Less than 5 U/L (8-55); AST (SGOT) 12 U/L (5-34); Albumin 2.9 g/dL (3.5-5.0); Alkaline Phosphatase 112 U/L (40-110); Anion Gap 26 mmol/L (10-20); BUN (Urea Nitrogen) 59 mg/dL (7.0-18.7); Bilirubin, Total 0.5 mg/dL (0.2-1.2); Calc. Creatinine Clearance 0 mL/min (70-130); Calcium 8.1 mg/dL (7.8-10.44); Carbon Dioxide 14 mmol/L (22-29); Chloride 98 mmol/L (98-107); Estimated GFR 5; Globulin 3.9 g/dL (2.4-3.5); Glucose 78 mg/dL (70-105); Potassium 5.8 mmol/L (3.5-5.1); Protein, Total 6.8 g/dL (6.0-8.3); Sodium 132 mmol/L (136-145)
[2024-06-26 01:12] LABS: Hep B Core Total Ab NONREACTIVE (NonReactive); Hep B Core Total Index 0.14 S/CO (0-0.79)
[2024-06-26 01:37] LABS: Hep C IgG Ab NONREACTIVE S/CO (NonReactive)
[2024-06-26 01:38] LABS: HBSAB Concentration 163.41 mIU/mL; HBsAg Index 0.26 S/CO (0-0.99); Hep B Surf AB REACTIVE (NonReactive); Hep B Surf Ag NONREACTIVE S/CO (NonReactive)
[2024-06-26] MEDS ORDERED: Acetaminophen 325 MG TAB ONE (02:00)
[2024-06-26] MEDS ORDERED: Lidocaine 4% Patch ONE (02:00)
[2024-06-26] MEDS ORDERED: Ondansetron ODT 4 MG TAB PO PRN (06:17)
[2024-06-26] MEDS: Apixaban 5 MG TAB PO SCH ×2 (08:14→09:48)
[2024-06-26] MEDS ORDERED: Atorvastatin Calcium 20 MG TAB PO SCH (09:00)
[2024-06-26] MEDS ORDERED: Isosorbide Mononitrate 30 MG ER.TAB PO SCH (09:00)
[2024-06-26] MEDS ORDERED: Non-Formulary Item 1 EACH (Citalopram Hydrobromide [Celexa] 40 MG Tablet) PO SCH (09:00)
[2024-06-26 09:29] LABS: #Basophils 0.05 10x3/uL (0.0-0.2); %Basophils 0.8 % (0.0-1.0); %Eosinophils 0.7 % (0.0-10.0); %Lymphocytes 18.5 % (21.0-51.0); %Monocytes 6.8 % (0.0-10.0); %Neutrophils 72.9 % (42.0-75.0); Hemoglobin 9.7 g/dL (12.0-16.0); Mean Corpuscular HGB CONC 32.3 g/dL (32.0-36.0); Mean Corpuscular Hemoglobin 31.2 pg (27.0-31.0); Mean Corpuscular Volume 96.5 fL (78.0-98.0); Mean Platelet Volume 9.6 fL (7.4-10.4); Platelet Count 200 10x3/uL (130-400); RBC Distribution Width 14.2 % (11.5-14.5); Red Blood Cell (RBC) Count 3.11 mill/uL (4.20-5.40)
[2024-06-26] MEDS: Isosorbide Mononitrate 20 MG TAB PO SCH (09:52)
[2024-06-26] MEDS: NIFEdipine XL 90 MG ER.TAB PO SCH (09:52)
[2024-06-26] MEDS: Atorvastatin Calcium 40 MG TAB PO SCH (09:52)
[2024-06-26] MEDS: hydrALAZINE 25 MG TAB PO SCH (09:52)
[2024-06-26] MEDS: Pantoprazole 40 MG GRANULES PACKET PO SCH (09:52)
[2024-06-26] MEDS: Gabapentin 300 MG CAP PO SCH (09:52)
[2024-06-26] MEDS: Citalopram 20 MG TAB PO SCH (09:52)
[2024-06-26 10:23] LABS: ALT (SGPT) Less than 5 U/L (8-55); AST (SGOT) 12 U/L (5-34); Albumin 2.5 g/dL (3.5-5.0); Alkaline Phosphatase 98 U/L (40-110); Anion Gap 16 mmol/L (10-20); BUN (Urea Nitrogen) 28 mg/dL (7.0-18.7); Bilirubin, Total 0.4 mg/dL (0.2-1.2); Calc. Creatinine Clearance 19 mL/min (70-130); Carbon Dioxide 22 mmol/L (22-29); Chloride 100 mmol/L (98-107); Estimated GFR 9; Globulin 3.5 g/dL (2.4-3.5); Glucose 70 mg/dL (70-105); Potassium 4.4 mmol/L (3.5-5.1); Sodium 134 mmol/L (136-145)
[2024-06-26 10:37] LABS: Critical Call Chem Troponin I RESULT DECREASING
[2024-06-26] MEDS: tiZANidine HCl 4 MG TAB PO PRN (10:54)
[2024-06-26] MEDS: HYDROcodone/Acetaminophen 10/325 mg Tablet PO PRN (10:54)
[2024-06-26 12:53] LABS: Troponin I 0.686 ng/mL (< 0.028)
[2024-06-26] MEDS: FLU (Fluarix Triv) TS24-25(6MOS UP)/PF 45 MCG/0.5 ML Syringe IM ONE (15:29)
[2024-06-26] MEDS: Carvedilol 25 MG TAB PO SCH (17:05)
[2024-06-26] MEDS ORDERED: Non-Formulary Item 1 EACH (Hydroxyzine Hcl [Hydroxyzine Hcl] 50 MG Tablet) PO SCH (21:00)
[2024-06-26] MEDS: traZODone HCl 50 MG TAB PO SCH (22:43)
[2024-06-26] MEDS: hydrOXYzine 25 MG TAB PO SCH (22:43)
[2024-06-27 04:56] LABS: #Basophils 0.03 10x3/uL (0.0-0.2); %Basophils 0.6 % (0.0-1.0); %Eosinophils 2.3 % (0.0-10.0); %Lymphocytes 24.2 % (21.0-51.0); %Monocytes 8.6 % (0.0-10.0); %Neutrophils 63.9 % (42.0-75.0); Hematocrit 25.6 % (36.0-47.0); Hemoglobin 8.1 g/dL (12.0-16.0); Mean Corpuscular HGB CONC 31.6 g/dL (32.0-36.0); Mean Corpuscular Hemoglobin 31.4 pg (27.0-31.0); Mean Corpuscular Volume 99.2 fL (78.0-98.0); Mean Platelet Volume 9.8 fL (7.4-10.4); Platelet Count 173 10x3/uL (130-400); RBC Distribution Width 14.4 % (11.5-14.5); Red Blood Cell (RBC) Count 2.58 mill/uL (4.20-5.40)
[2024-06-27 05:15] LABS: ALT (SGPT) Less than 5 U/L (8-55); AST (SGOT) 12 U/L (5-34); Albumin 2.3 g/dL (3.5-5.0); Alkaline Phosphatase 90 U/L (40-110); Anion Gap 16 mmol/L (10-20); BUN (Urea Nitrogen) 34 mg/dL (7.0-18.7); Bilirubin, Total 0.3 mg/dL (0.2-1.2); Calc. Creatinine Clearance 17 mL/min (70-130); Calcium 7.2 mg/dL (7.8-10.44); Carbon Dioxide 24 mmol/L (22-29); Chloride 97 mmol/L (98-107); Estimated GFR 8; Globulin 2.9 g/dL (2.4-3.5); Glucose 83 mg/dL (70-105); Protein, Total 5.2 g/dL (6.0-8.3); Sodium 132 mmol/L (136-145)
[2024-06-27 07:13] VITALS: BMI 29.4
[2024-06-27 10:04] LABS: Troponin I 1.103 ng/mL (< 0.028)
[2024-06-27] MEDS ORDERED: Heparin 10,000 UNITS/ 10 ML VIAL ONE (10:39)
[2024-06-27] MEDS: Apixaban 2.5 MG TAB PO SCH (21:51)
[2024-06-28 06:05] LABS: #Basophils Less than 0.03 10x3/uL (0.0-0.2); %Basophils 0.5 % (0.0-1.0); %Eosinophils 2.7 % (0.0-10.0); %Lymphocytes 26.7 % (21.0-51.0); %Monocytes 8.2 % (0.0-10.0); %Neutrophils 61.9 % (42.0-75.0); Hematocrit 26.3 % (36.0-47.0); Hemoglobin 8.2 g/dL (12.0-16.0); Mean Corpuscular HGB CONC 31.2 g/dL (32.0-36.0); Mean Corpuscular Hemoglobin 31.1 pg (27.0-31.0); Mean Corpuscular Volume 99.6 fL (78.0-98.0); Mean Platelet Volume 9.9 fL (7.4-10.4); Platelet Count 152 10x3/uL (130-400); RBC Distribution Width 14.4 % (11.5-14.5); Red Blood Cell (RBC) Count 2.64 mill/uL (4.20-5.40)
[2024-06-28 06:18] LABS: ALT (SGPT) Less than 5 U/L (8-55); AST (SGOT) 13 U/L (5-34); Albumin 2.1 g/dL (3.5-5.0); Alkaline Phosphatase 87 U/L (40-110); Anion Gap 12 mmol/L (10-20); BUN (Urea Nitrogen) 20 mg/dL (7.0-18.7); Bilirubin, Total 0.3 mg/dL (0.2-1.2); Calc. Creatinine Clearance 25 mL/min (70-130); Calcium 7.2 mg/dL (7.8-10.44); Carbon Dioxide 26 mmol/L (22-29); Chloride 101 mmol/L (98-107); Estimated GFR 13; Glucose 93 mg/dL (70-105); Potassium 4.1 mmol/L (3.5-5.1); Protein, Total 5.1 g/dL (6.0-8.3); Sodium 135 mmol/L (136-145)
[2024-06-28] MEDS: Carvedilol 6.25 MG TAB PO SCH ×2 (11:14→16:13)
[2024-06-28] MEDS: EPOETIN ALFA-EPBX (ESRD) 10,000 UNITS/ML VIAL SC SCH (14:08)
[2024-06-29 05:12] LABS: #Basophils Less than 0.03 10x3/uL (0.0-0.2); %Basophils 0.5 % (0.0-1.0); %Eosinophils 3.4 % (0.0-10.0); %Lymphocytes 23.3 % (21.0-51.0); %Neutrophils 64.6 % (42.0-75.0); Hematocrit 29.4 % (36.0-47.0); Hemoglobin 9.2 g/dL (12.0-16.0); Mean Corpuscular HGB CONC 31.3 g/dL (32.0-36.0); Mean Corpuscular Hemoglobin 30.8 pg (27.0-31.0); Mean Corpuscular Volume 98.3 fL (78.0-98.0); Mean Platelet Volume 10.1 fL (7.4-10.4); Platelet Count 154 10x3/uL (130-400); RBC Distribution Width 14.3 % (11.5-14.5); Red Blood Cell (RBC) Count 2.99 mill/uL (4.20-5.40)
[2024-06-29 06:13] LABS: ALT (SGPT) Less than 5 U/L (8-55); AST (SGOT) 12 U/L (5-34); Albumin 2.2 g/dL (3.5-5.0); Alkaline Phosphatase 84 U/L (40-110); Anion Gap 16 mmol/L (10-20); BUN (Urea Nitrogen) 25 mg/dL (7.0-18.7); Bilirubin, Total 0.3 mg/dL (0.2-1.2); Calc. Creatinine Clearance 21 mL/min (70-130); Calcium 7.2 mg/dL (7.8-10.44); Carbon Dioxide 23 mmol/L (22-29); Chloride 99 mmol/L (98-107); Estimated GFR 10; Globulin 3.1 g/dL (2.4-3.5); Glucose 76 mg/dL (70-105); Potassium 4.7 mmol/L (3.5-5.1); Protein, Total 5.3 g/dL (6.0-8.3); Sodium 133 mmol/L (136-145)
[2024-06-29] MEDS: Pantoprazole DR 40 MG TAB PO SCH (10:48)
[2024-06-29] MEDS ORDERED: Gabapentin 300 MG CAP PO SCH (21:00)
[2024-06-30 05:22] LABS: #Basophils 0.03 10x3/uL (0.0-0.2); %Basophils 0.7 % (0.0-1.0); %Eosinophils 3.3 % (0.0-10.0); %Lymphocytes 26.3 % (21.0-51.0); %Neutrophils 60.5 % (42.0-75.0); Hematocrit 29.2 % (36.0-47.0); Hemoglobin 9.3 g/dL (12.0-16.0); Mean Corpuscular HGB CONC 31.8 g/dL (32.0-36.0); Mean Corpuscular Hemoglobin 31.1 pg (27.0-31.0); Mean Corpuscular Volume 97.7 fL (78.0-98.0); Mean Platelet Volume 10.4 fL (7.4-10.4); Platelet Count 149 10x3/uL (130-400); RBC Distribution Width 14.1 % (11.5-14.5); Red Blood Cell (RBC) Count 2.99 mill/uL (4.20-5.40)
[2024-06-30 05:43] LABS: ALT (SGPT) 6 U/L (8-55); AST (SGOT) 16 U/L (5-34); Albumin 2.3 g/dL (3.5-5.0); Alkaline Phosphatase 95 U/L (40-110); Anion Gap 16 mmol/L (10-20); BUN (Urea Nitrogen) 30 mg/dL (7.0-18.7); Bilirubin, Total 0.3 mg/dL (0.2-1.2); Calc. Creatinine Clearance 18 mL/min (70-130); Calcium 7.1 mg/dL (7.8-10.44); Carbon Dioxide 24 mmol/L (22-29); Chloride 94 mmol/L (98-107); Estimated GFR 8; Glucose 73 mg/dL (70-105); Potassium 4.9 mmol/L (3.5-5.1); Protein, Total 5.3 g/dL (6.0-8.3); Sodium 129 mmol/L (136-145)
[2024-06-30 10:17] LABS: INR-International Normal Ratio 1.2; PTT 44.1 sec (22.9-36.1); Prothrombin Time 15.2 sec (12.0-14.7)
[2024-06-30] MEDS ORDERED: Heparin 10,000 UNITS/ 10 ML VIAL ONE (11:02)
[2024-06-30] MEDS: Gabapentin 300 MG CAP PO SCH (13:46)
[2024-06-30] MEDS: Pantoprazole DR 40 MG TAB PO SCH (13:47)
[2024-06-30] MEDS: Atorvastatin Calcium 40 MG TAB PO SCH (21:01)
[2024-07-01] MEDS ORDERED: Sodium Bicarbonate 2.5 MEQ/5 ML SDV ONE (08:47)
[2024-07-01] MEDS ORDERED: Lidocaine 1% w/Epinephrine 1:100K 20 ML VIAL ONE (08:47)
[2024-07-01 16:41] VITALS: BP 128/71; TEMP 97.8
== END 2024-07-01 17:37 | disposition home or self-care (01) | DRG 280 ==
LOC: ERS 18:17 → 2NO 06-26 06:38 → OBSVTOIN 06-27 13:16
PROVIDERS: ADMIT Student in an Organized Health Care Education/Training Program; ATTEND Student in an Organized Health Care Education/Training Program
PROC: 0W9G3ZZ Drainage of Peritoneal Cavity, Percutaneous Approach (ICD-10-PCS; principal; 2024-07-01)
DX: I13.2 Hypertensive heart and chronic kidney disease with heart failure and with stage 5 chronic kidney disease, or end stage renal disease (principal); I50.23 Acute on chronic systolic (congestive) heart failure; I21.A1 Myocardial infarction type 2; N18.6 End stage renal disease; E87.1 Hypo-osmolality and hyponatremia; E87.20 Acidosis, unspecified; Z99.2 Dependence on renal dialysis; I25.10 Atherosclerotic heart disease of native coronary artery without angina pectoris; E11.22 Type 2 diabetes mellitus with diabetic chronic kidney disease; K21.9 Gastro-esophageal reflux disease without esophagitis; F41.1 Generalized anxiety disorder; Z91.048 Other nonmedicinal substance allergy status; Z88.8 Allergy status to other drugs, medicaments and biological substances; Z79.899 Other long term (current) drug therapy; Z79.01 Long term (current) use of anticoagulants; I25.2 Old myocardial infarction; F32.9 Major depressive disorder, single episode, unspecified; Z98.890 Other specified postprocedural states; E87.5 Hyperkalemia; D63.1 Anemia in chronic kidney disease; Z98.51 Tubal ligation status; I25.5 Ischemic cardiomyopathy; I35.0 Nonrheumatic aortic (valve) stenosis; K70.31 Alcoholic cirrhosis of liver with ascites
CPT/HCPCS: 36415; 36416; 49083; 71045; 80053; 83880; 84484; 85025; 85610; 85730; 86704; 86706; 86803; 87340; 87428; 90935; 93005; 93306; 96374; 96375; G0257; G0378; J1644; J1940; J2272; J2405; Q5105

== ENCOUNTER 2024-07-29 22:27 | Emergency (ER) | payer OTHER ==
[~2024-07-29 22:27] MED LIST changes: -Heparin 10,000 UNITS/ 10 ML VIAL ONE; +Iopamidol 370 76% 100 ML VIAL ONE
[2024-07-30 00:58] LABS: #Basophils 0.05 10x3/uL (0.0-0.2); %Eosinophils 1.5 % (0.0-10.0); %Monocytes 6.2 % (0.0-10.0); %Neutrophils 72.1 % (42.0-75.0); Hematocrit 32.9 % (36.0-47.0); Hemoglobin 10.1 g/dL (12.0-16.0); Mean Corpuscular HGB CONC 30.7 g/dL (32.0-36.0); Mean Corpuscular Hemoglobin 30.7 pg (27.0-31.0); Mean Platelet Volume 10.1 fL (7.4-10.4); Platelet Count 202 10x3/uL (130-400); RBC Distribution Width 14.5 % (11.5-14.5); Red Blood Cell (RBC) Count 3.29 mill/uL (4.20-5.40)
[2024-07-30 02:18] LABS: INR-International Normal Ratio 1.1
[2024-07-30 05:00] LABS: Albumin 2.6 g/dL (3.1-4.5); Calcium 7.8 mg/dL (7.8-10.44); Chloride 103 mmol/L (98-107); Globulin 3.5 g/dL (2.4-3.5); Glucose 105 mg/dL (70-105); Potassium 5.1 mmol/L (3.5-5.1); Protein, Total 6.1 g/dL (6.0-8.3); Sodium 137 mmol/L (136-145)
[2024-07-30 05:01] LABS: ALT (SGPT) 13 U/L (Less than 34); AST (SGOT) 21 U/L (11-34); Alkaline Phosphatase 201 U/L (40-110); Anion Gap 17 mmol/L (10-20); BUN (Urea Nitrogen) 30 mg/dL (7.0-18.7); Bilirubin, Total 0.3 mg/dL (0.3-1.2); Calc. Creatinine Clearance 0 mL/min (70-130); Carbon Dioxide 22 mmol/L (22-29); Estimated GFR 11; Lipase 15 U/L (8-78); Magnesium 1.8 mg/dL (1.6-2.6)
[2024-07-30 06:06] LABS: Troponin I 0.011 ng/mL (< 0.028)
== END 2024-07-30 07:10 | disposition home or self-care (01) ==
LOC: ERS 22:27
DX: R06.00 Dyspnea, unspecified (principal); R18.8 Other ascites; I25.2 Old myocardial infarction; I25.10 Atherosclerotic heart disease of native coronary artery without angina pectoris; I12.0 Hypertensive chronic kidney disease with stage 5 chronic kidney disease or end stage renal disease; E11.22 Type 2 diabetes mellitus with diabetic chronic kidney disease; N18.6 End stage renal disease; F17.210 Nicotine dependence, cigarettes, uncomplicated; Z99.2 Dependence on renal dialysis
CPT/HCPCS: 36415; 71275; 80053; 83690; 83735; 83880; 84484; 85025; 85610; 85730; 87428; 93005; 93970; Q9967

== ENCOUNTER 2024-07-31 12:18 | Day surgery (SDC) | payer OTHER, MEDICAID | END 2024-07-31 14:45 | disposition home or self-care (01) | LOC: ULT 12:18 | PROVIDERS: ATTEND Family Medicine | PROC: 0W9G30Z Drainage of Peritoneal Cavity with Drainage Device, Percutaneous Approach (ICD-10-PCS; principal; 2024-07-31) | DX: K74.60 Unspecified cirrhosis of liver (principal); R18.8 Other ascites; I12.0 Hypertensive chronic kidney disease with stage 5 chronic kidney disease or end stage renal disease; N18.6 End stage renal disease; E11.22 Type 2 diabetes mellitus with diabetic chronic kidney disease; E11.319 Type 2 diabetes mellitus with unspecified diabetic retinopathy without macular edema; E11.621 Type 2 diabetes mellitus with foot ulcer; E11.628 Type 2 diabetes mellitus with other skin complications; F41.9 Anxiety disorder, unspecified; F32.A Depression, unspecified; E11.40 Type 2 diabetes mellitus with diabetic neuropathy, unspecified; L97.521 Non-pressure chronic ulcer of other part of left foot limited to breakdown of skin; F17.210 Nicotine dependence, cigarettes, uncomplicated; Z88.1 Allergy status to other antibiotic agents; Z91.048 Other nonmedicinal substance allergy status; Z88.8 Allergy status to other drugs, medicaments and biological substances | CPT/HCPCS: 49083 ==

== ENCOUNTER 2024-08-05 22:37 | Inpatient (IN) | payer OTHER, MEDICAID ==
[2024-08-06 00:21] LABS: #Basophils 0.05 10x3/uL (0.0-0.2); %Basophils 0.9 % (0.0-1.0); %Eosinophils 2.2 % (0.0-10.0); %Monocytes 7.2 % (0.0-10.0); Hematocrit 32.1 % (36.0-47.0); Mean Corpuscular HGB CONC 31.2 g/dL (32.0-36.0); Mean Corpuscular Hemoglobin 31.1 pg (27.0-31.0); Mean Corpuscular Volume 99.7 fL (78.0-98.0); Mean Platelet Volume 10.1 fL (7.4-10.4); Platelet Count 267 10x3/uL (130-400); RBC Distribution Width 15.7 % (11.5-14.5); Red Blood Cell (RBC) Count 3.22 mill/uL (4.20-5.40)
[2024-08-06 01:02] LABS: ALT (SGPT) 28 U/L (Less than 34); AST (SGOT) 50 U/L (11-34); Albumin 2.4 g/dL (3.1-4.5); Alkaline Phosphatase 206 U/L (40-110); Anion Gap 19 mmol/L (10-20); BUN (Urea Nitrogen) 44 mg/dL (7.0-18.7); Bilirubin, Total 0.3 mg/dL (0.3-1.2); Calc. Creatinine Clearance 0 mL/min (70-130); Calcium 7.3 mg/dL (7.8-10.44); Carbon Dioxide 22 mmol/L (22-29); Chloride 100 mmol/L (98-107); Estimated GFR 9; Globulin 3.3 g/dL (2.4-3.5); Glucose 90 mg/dL (70-105); Potassium 6.5 mmol/L (3.5-5.1); Protein, Total 5.7 g/dL (6.0-8.3); Sodium 134 mmol/L (136-145)
[2024-08-06] MEDS ORDERED: CALCIUM GLUC 1 GM/NS 50 ML IV Bag ONE (01:02)
[2024-08-06] MEDS ORDERED: Insulin Regular, Human 100 UNIT/ML 10 ML VIAL ONE (01:20)
[2024-08-06] MEDS ORDERED: Dextrose 50% Abboject 50 ML SYRINGE ONE (01:45)
[2024-08-06] MEDS ORDERED: Acetaminophen 325 MG TAB PO PRN (03:09)
[2024-08-06] MEDS ORDERED: HYDROcodone/Acetaminophen 5/325 mg Tablet PO PRN (03:14)
[2024-08-06] MEDS ORDERED: Morphine 2 MG/ML VIAL ONE (03:26)
[2024-08-06] MEDS: LOKELMA 10 GM PACKET PO SCH ×2 (08:01→17:38)
[2024-08-06] MEDS: Dextrose 50% Abboject 50 ML SYRINGE SLOW IVP SCH (08:01)
[2024-08-06] MEDS ORDERED: HYDROcodone/Acetaminophen 10/325 mg Tablet ONE (08:27)
[2024-08-06] MEDS: HYDROcodone/Acetaminophen 10/325 mg Tablet PO PRN (08:39)
[2024-08-06] MEDS: Apixaban 2.5 MG TAB PO SCH (11:28)
[2024-08-06] MEDS: Isosorbide Mononitrate 20 MG TAB PO SCH (11:29)
[2024-08-06] MEDS: Atorvastatin Calcium 40 MG TAB PO SCH (11:29)
[2024-08-06] MEDS: Gabapentin 300 MG CAP PO SCH (11:30)
[2024-08-06] MEDS: Pantoprazole 40 MG DR.TAB PO SCH (11:30)
[2024-08-06] MEDS: Citalopram 20 MG TAB PO SCH (11:30)
[2024-08-06] MEDS: Clopidogrel Bisulfate 75 MG TAB PO SCH (11:30)
[2024-08-06 14:12] VITALS: BMI 41.5
[2024-08-06 14:18] LABS: Anion Gap 14 mmol/L (10-20); BUN (Urea Nitrogen) 19 mg/dL (7.0-18.7); Calc. Creatinine Clearance 34 mL/min (70-130); Calcium 7.9 mg/dL (7.8-10.44); Carbon Dioxide 27 mmol/L (22-29); Chloride 98 mmol/L (98-107); Estimated GFR 17; Glucose 92 mg/dL (70-105); Potassium 5.1 mmol/L (3.5-5.1); Sodium 134 mmol/L (136-145)
[2024-08-06 14:36] LABS: #Basophils 0.03 10x3/uL (0.0-0.2); %Basophils 0.6 % (0.0-1.0); %Eosinophils 1.4 % (0.0-10.0); %Lymphocytes 17.7 % (21.0-51.0); %Monocytes 7.6 % (0.0-10.0); %Neutrophils 72.3 % (42.0-75.0); Hematocrit 30.9 % (36.0-47.0); Mean Corpuscular HGB CONC 32.4 g/dL (32.0-36.0); Mean Corpuscular Hemoglobin 30.9 pg (27.0-31.0); Mean Corpuscular Volume 95.4 fL (78.0-98.0); Mean Platelet Volume 9.5 fL (7.4-10.4); Platelet Count 213 10x3/uL (130-400); RBC Distribution Width 15.5 % (11.5-14.5); Red Blood Cell (RBC) Count 3.24 mill/uL (4.20-5.40)
[2024-08-06 14:52] LABS: ALT (SGPT) 22 U/L (Less than 34); AST (SGOT) 29 U/L (11-34); Albumin 2.2 g/dL (3.1-4.5); Alkaline Phosphatase 167 U/L (40-110); Anion Gap 13 mmol/L (10-20); BUN (Urea Nitrogen) 22 mg/dL (7.0-18.7); Bilirubin, Total 0.3 mg/dL (0.3-1.2); Calc. Creatinine Clearance 34 mL/min (70-130); Calcium 7.4 mg/dL (7.8-10.44); Carbon Dioxide 23 mmol/L (22-29); Chloride 102 mmol/L (98-107); Estimated GFR 18; Glucose 82 mg/dL (70-105); Potassium 5.2 mmol/L (3.5-5.1); Protein, Total 5.2 g/dL (6.0-8.3); Sodium 133 mmol/L (136-145)
[2024-08-06] MEDS: hydrOXYzine 25 MG TAB PO SCH (21:29)
[2024-08-06] MEDS: Apixaban 5 MG TAB PO SCH (21:30)
[2024-08-06] MEDS: traZODone HCl 50 MG TAB PO SCH (21:34)
[2024-08-07 04:46] LABS: #Basophils 0.04 10x3/uL (0.0-0.2); %Basophils 0.8 % (0.0-1.0); %Eosinophils 2.9 % (0.0-10.0); %Lymphocytes 18.7 % (21.0-51.0); %Monocytes 6.1 % (0.0-10.0); %Neutrophils 71.1 % (42.0-75.0); Hematocrit 31.3 % (36.0-47.0); Hemoglobin 9.7 g/dL (12.0-16.0); Mean Corpuscular Hemoglobin 30.8 pg (27.0-31.0); Mean Corpuscular Volume 99.4 fL (78.0-98.0); Platelet Count 210 10x3/uL (130-400); RBC Distribution Width 15.4 % (11.5-14.5); Red Blood Cell (RBC) Count 3.15 mill/uL (4.20-5.40)
[2024-08-07 05:08] LABS: ALT (SGPT) 19 U/L (Less than 34); AST (SGOT) 30 U/L (11-34); Albumin 2.3 g/dL (3.1-4.5); Alkaline Phosphatase 186 U/L (40-110); Anion Gap 15 mmol/L (10-20); BUN (Urea Nitrogen) 28 mg/dL (7.0-18.7); Bilirubin, Total 0.3 mg/dL (0.3-1.2); Calc. Creatinine Clearance 25 mL/min (70-130); Calcium 7.4 mg/dL (7.8-10.44); Carbon Dioxide 26 mmol/L (22-29); Chloride 99 mmol/L (98-107); Estimated GFR 12; Glucose 87 mg/dL (70-105); Protein, Total 5.3 g/dL (6.0-8.3); Sodium 135 mmol/L (136-145)
[2024-08-07] MEDS: Gabapentin 300 MG CAP PO SCH (20:50)
[2024-08-07 23:37] VITALS: BMI 41.5
[2024-08-08 04:35] LABS: #Basophils 0.03 10x3/uL (0.0-0.2); %Basophils 0.7 % (0.0-1.0); %Eosinophils 2.6 % (0.0-10.0); %Lymphocytes 19.3 % (21.0-51.0); %Monocytes 6.1 % (0.0-10.0); %Neutrophils 71.1 % (42.0-75.0); Hematocrit 29.7 % (36.0-47.0); Hemoglobin 9.3 g/dL (12.0-16.0); Mean Corpuscular HGB CONC 31.3 g/dL (32.0-36.0); Mean Corpuscular Hemoglobin 30.7 pg (27.0-31.0); Mean Platelet Volume 10.2 fL (7.4-10.4); Platelet Count 200 10x3/uL (130-400); RBC Distribution Width 15.4 % (11.5-14.5); Red Blood Cell (RBC) Count 3.03 mill/uL (4.20-5.40)
[2024-08-08 04:57] LABS: ALT (SGPT) 17 U/L (Less than 34); AST (SGOT) 30 U/L (11-34); Albumin 2.3 g/dL (3.1-4.5); Alkaline Phosphatase 172 U/L (40-110); Anion Gap 18 mmol/L (10-20); BUN (Urea Nitrogen) 34 mg/dL (7.0-18.7); Bilirubin, Total 0.4 mg/dL (0.3-1.2); Calc. Creatinine Clearance 21 mL/min (70-130); Calcium 7.4 mg/dL (7.8-10.44); Carbon Dioxide 22 mmol/L (22-29); Chloride 99 mmol/L (98-107); Estimated GFR 10; Globulin 3.1 g/dL (2.4-3.5); Glucose 85 mg/dL (70-105); Potassium 5.8 mmol/L (3.5-5.1); Protein, Total 5.4 g/dL (6.0-8.3); Sodium 133 mmol/L (136-145)
[2024-08-08] MEDS: tiZANidine HCl 4 MG TAB PO PRN (16:39)
[2024-08-09 04:13] LABS: #Basophils 0.04 10x3/uL (0.0-0.2); %Basophils 0.7 % (0.0-1.0); %Eosinophils 1.2 % (0.0-10.0); %Lymphocytes 15.9 % (21.0-51.0); %Monocytes 5.4 % (0.0-10.0); %Neutrophils 76.5 % (42.0-75.0); Hematocrit 30.2 % (36.0-47.0); Hemoglobin 9.6 g/dL (12.0-16.0); Mean Corpuscular HGB CONC 31.8 g/dL (32.0-36.0); Mean Corpuscular Hemoglobin 30.3 pg (27.0-31.0); Mean Corpuscular Volume 95.3 fL (78.0-98.0); Mean Platelet Volume 9.9 fL (7.4-10.4); Platelet Count 196 10x3/uL (130-400); RBC Distribution Width 15.4 % (11.5-14.5); Red Blood Cell (RBC) Count 3.17 mill/uL (4.20-5.40)
[2024-08-09 04:41] LABS: ALT (SGPT) 17 U/L (Less than 34); AST (SGOT) 28 U/L (11-34); Albumin 2.4 g/dL (3.1-4.5); Alkaline Phosphatase 203 U/L (40-110); Anion Gap 15 mmol/L (10-20); BUN (Urea Nitrogen) 25 mg/dL (7.0-18.7); Bilirubin, Total 0.4 mg/dL (0.3-1.2); Calc. Creatinine Clearance 26 mL/min (70-130); Calcium 7.7 mg/dL (7.8-10.44); Carbon Dioxide 26 mmol/L (22-29); Chloride 99 mmol/L (98-107); Estimated GFR 12; Globulin 3.2 g/dL (2.4-3.5); Glucose 98 mg/dL (70-105); Potassium 5.3 mmol/L (3.5-5.1); Protein, Total 5.6 g/dL (6.0-8.3); Sodium 135 mmol/L (136-145)
[2024-08-09 08:38] VITALS: BP 145/90; TEMP 98.3
== END 2024-08-09 09:55 | disposition home or self-care (01) | DRG 291 ==
LOC: ERS 22:37 → ERHOLD 08-06 02:53 → OBSVTOIN 08-06 02:53 → 2SE 08-06 10:40
PROVIDERS: ADMIT Family Medicine; ATTEND Family Medicine
DX: I13.2 Hypertensive heart and chronic kidney disease with heart failure and with stage 5 chronic kidney disease, or end stage renal disease (principal); N18.6 End stage renal disease; N18.4 Chronic kidney disease, stage 4 (severe); R18.8 Other ascites; I50.20 Unspecified systolic (congestive) heart failure; E87.5 Hyperkalemia; I25.10 Atherosclerotic heart disease of native coronary artery without angina pectoris; I25.2 Old myocardial infarction; E11.22 Type 2 diabetes mellitus with diabetic chronic kidney disease; F32.9 Major depressive disorder, single episode, unspecified; K21.9 Gastro-esophageal reflux disease without esophagitis; Z89.511 Acquired absence of right leg below knee; F41.1 Generalized anxiety disorder; L89.159 Pressure ulcer of sacral region, unspecified stage; Z87.891 Personal history of nicotine dependence; Z86.73 Personal history of transient ischemic attack (TIA), and cerebral infarction without residual deficits; Z95.5 Presence of coronary angioplasty implant and graft; Z89.512 Acquired absence of left leg below knee; E88.09 Other disorders of plasma-protein metabolism, not elsewhere classified; K74.60 Unspecified cirrhosis of liver; Z86.718 Personal history of other venous thrombosis and embolism
CPT/HCPCS: 36415; 36416; 71045; 80053; 82140; 83880; 85025; 93005; 96365; 96375; 97139; J0613; J1815; J2272; J7999

== ENCOUNTER 2024-08-09 15:46 | Inpatient (IN) | payer OTHER, MEDICAID ==
[2024-08-09] MEDS ORDERED: fentaNYL 50 mcg/mL 1 mL Vial ONE (16:09)
[2024-08-09 16:24] LABS: #Basophils 0.05 10x3/uL (0.0-0.2); %Basophils 0.7 % (0.0-1.0); %Eosinophils 1.3 % (0.0-10.0); %Lymphocytes 8.5 % (21.0-51.0); %Monocytes 4.3 % (0.0-10.0); %Neutrophils 84.9 % (42.0-75.0); Hematocrit 31.6 % (36.0-47.0); Hemoglobin 9.9 g/dL (12.0-16.0); Mean Corpuscular HGB CONC 31.3 g/dL (32.0-36.0); Mean Corpuscular Hemoglobin 30.6 pg (27.0-31.0); Mean Corpuscular Volume 97.5 fL (78.0-98.0); Mean Platelet Volume 10.4 fL (7.4-10.4); Platelet Count 205 10x3/uL (130-400); RBC Distribution Width 15.4 % (11.5-14.5); Red Blood Cell (RBC) Count 3.24 mill/uL (4.20-5.40)
[2024-08-09 16:33] LABS: Base Excess -0.9 mEq/L (-2.0 to +3.0); Calcium, Ionized (venous) 0.95 mmol/L (1.16-1.32); Hematocrit-VBG 32 % (36.0-47.0); Potassium (VBG) 5.83 mmol/L (3.70-5.30); Sodium 128 mmol/L (133-146); pH (venous) 7.434 (7.32-7.43)
[2024-08-09 16:42] LABS: INR-International Normal Ratio 1.4; PTT 40.3 sec (22.9-36.1); Prothrombin Time 17.1 sec (12.0-14.7)
[2024-08-09 16:51] LABS: Troponin I 0.451 ng/mL (< 0.028)
[2024-08-09 16:52] LABS: ALT (SGPT) 17 U/L (Less than 34); AST (SGOT) 26 U/L (11-34); Albumin 2.6 g/dL (3.1-4.5); Alkaline Phosphatase 211 U/L (40-110); Anion Gap 18 mmol/L (10-20); BUN (Urea Nitrogen) 32 mg/dL (7.0-18.7); Bilirubin, Total 0.6 mg/dL (0.3-1.2); Calc. Creatinine Clearance 0 mL/min (70-130); Calcium 7.8 mg/dL (7.8-10.44); Carbon Dioxide 24 mmol/L (22-29); Chloride 97 mmol/L (98-107); Estimated GFR 11; Globulin 3.5 g/dL (2.4-3.5); Glucose 137 mg/dL (70-105); Potassium 6.2 mmol/L (3.5-5.1); Protein, Total 6.1 g/dL (6.0-8.3); Sodium 133 mmol/L (136-145)
[2024-08-09 17:05] LABS: Bacteria/HPF 4+ HPF (None Seen); Bilirubin Negative (Negative); Blood, Urine 2+ (Negative); CAUTI Indications for Culture Alt mental st,lethar; Clarity Extra Turbid (Clear); Glucose, Urine (Dipstick) Normal (Negative); Ketone, Urine Negative (Negative); Leukocyte 500 Leu/uL (Negative); Nitrite Negative (Negative); Protein, Urine (Dipstick) 100 mg/dL (Neg-Trace); RBC/HPF 21-50 HPF (0-3); Specific Gravity, Urine 1.009 (1.002-1.036); Squamous Epithelial 0-3 HPF (0-3); Urobilinogen Normal mg/dL (Less than 2); WBC/HPF Greater than 50 HPF (0-3); pH, Urine 8.5 (5.0-9.0)
[2024-08-09 17:06] LABS: Urine Culture Reflex Yes Yes
[2024-08-09] MEDS ORDERED: Dextrose 10% in Water 250 ML ONE (17:55)
[2024-08-09] MEDS ORDERED: Insulin Regular, Human 100 UNIT/ML 10 ML VIAL ONE (17:55)
[2024-08-09] MEDS ORDERED: Sodium Bicarb 50 MEQ/50 ML Abboject 8.4% SYRINGE ONE (17:55)
[2024-08-09] MEDS ORDERED: CALCIUM GLUC 1 GM/NS 50 ML IV Bag ONE (17:55)
[2024-08-09] MEDS ORDERED: Furosemide 40 MG (4 mL) VIAL ONE (18:14)
[2024-08-09] MEDS ORDERED: Furosemide 20 MG (2 mL) VIAL ONE (18:15)
[2024-08-09] MEDS ORDERED: Albumin 25% 100 ML ONE (18:57)
[2024-08-09] MEDS ORDERED: Electrolyte Replacement Protocol 1 EACH IVPB PRN (19:00)
[2024-08-09 20:02] LABS: RBC Count-Automated (BF) 83 /cu.mm; WBC/Nucleated-Auto (BF) 201 /cu.mm
[2024-08-09 20:48] LABS: BF Color Yellow; Body Fluid Source Ascites Body Fluid; Clarity Clear (Clear); Tube # EDTA
[2024-08-09 20:51] LABS: BF Segmented Neutrophils 9 %; Cell Count Non Hematic 53 %; Lymphocytes 38 %
[2024-08-09] MEDS: Albumin 25% 25 GM (100 mL) BOT IVPB SCH (21:12)
[2024-08-09] MEDS: Gabapentin 300 MG CAP PO SCH (21:13)
[2024-08-09] MEDS: Apixaban 2.5 MG TAB PO SCH (21:16)
[2024-08-09] MEDS: Vancomycin (BATCH) 1.75 GM in Premix 1 BAG IVPB SCH (21:16)
[2024-08-09 22:01] LABS: Troponin I 0.311 ng/mL (< 0.028)
[2024-08-09 22:31] VITALS: BMI 31.8
[2024-08-09] MEDS: HYDROcodone/Acetaminophen 10/325 mg Tablet PO PRN (22:47)
[2024-08-09] MEDS ORDERED: NOREPINEPHRINE 8 MG/250 ML-D5W 250 ML IVPB SCH (23:15)
[2024-08-10 00:02] LABS: Troponin I 0.314 ng/mL (< 0.028)
[2024-08-10 04:40] LABS: ALT (SGPT) 39 U/L (Less than 34); AST (SGOT) 92 U/L (11-34); Albumin 2.8 g/dL (3.1-4.5); Alkaline Phosphatase 218 U/L (40-110); Anion Gap 13 mmol/L (10-20); BUN (Urea Nitrogen) 17 mg/dL (7.0-18.7); Bilirubin, Total 0.6 mg/dL (0.3-1.2); Calc. Creatinine Clearance 38 mL/min (70-130); Calcium 7.9 mg/dL (7.8-10.44); Carbon Dioxide 28 mmol/L (22-29); Chloride 100 mmol/L (98-107); Estimated GFR 20; Globulin 2.8 g/dL (2.4-3.5); Glucose 75 mg/dL (70-105); Magnesium 1.8 mg/dL (1.6-2.6); Potassium 3.9 mmol/L (3.5-5.1); Protein, Total 5.6 g/dL (6.0-8.3); Sodium 137 mmol/L (136-145)
[2024-08-10 04:47] LABS: Phosphorus 3.6 mg/dL (2.5-4.5)
[2024-08-10 06:06] LABS: #Basophils 0.03 10x3/uL (0.0-0.2); %Basophils 0.8 % (0.0-1.0); %Eosinophils 1.9 % (0.0-10.0); %Lymphocytes 17.9 % (21.0-51.0); %Monocytes 7.3 % (0.0-10.0); %Neutrophils 71.8 % (42.0-75.0); Hematocrit 27.7 % (36.0-47.0); Hemoglobin 8.6 g/dL (12.0-16.0); Mean Corpuscular Hemoglobin 30.2 pg (27.0-31.0); Mean Corpuscular Volume 97.2 fL (78.0-98.0); Mean Platelet Volume 10.1 fL (7.4-10.4); Platelet Count 141 10x3/uL (130-400); RBC Distribution Width 15.3 % (11.5-14.5); Red Blood Cell (RBC) Count 2.85 mill/uL (4.20-5.40)
[2024-08-10] MEDS: Citalopram 20 MG TAB PO SCH (08:40)
[2024-08-10] MEDS: Atorvastatin Calcium 40 MG TAB PO SCH (08:40)
[2024-08-10] MEDS: Pantoprazole 40 MG DR.TAB PO SCH (08:41)
[2024-08-10] MEDS: Clopidogrel Bisulfate 75 MG TAB PO SCH (08:41)
[2024-08-10] MEDS: cefTRIAXone\\ROCEPHIN 2 GM in Sodium Chloride 0.9% 100 ML IVPB SCH (15:14)
[2024-08-10] MEDS: tiZANidine HCl 4 MG TAB PO PRN (20:08)
[2024-08-11 07:00] LABS: #Basophils 0.04 10x3/uL (0.0-0.2); %Basophils 0.7 % (0.0-1.0); %Eosinophils 1.8 % (0.0-10.0); %Lymphocytes 20.5 % (21.0-51.0); %Monocytes 7.2 % (0.0-10.0); %Neutrophils 69.3 % (42.0-75.0); Hematocrit 31.5 % (36.0-47.0); Mean Corpuscular HGB CONC 31.7 g/dL (32.0-36.0); Mean Corpuscular Hemoglobin 29.9 pg (27.0-31.0); Mean Platelet Volume 11.4 fL (7.4-10.4); Platelet Count 152 10x3/uL (130-400); RBC Distribution Width 15.3 % (11.5-14.5); Red Blood Cell (RBC) Count 3.35 mill/uL (4.20-5.40)
[2024-08-11 07:01] LABS: ALT (SGPT) 36 U/L (Less than 34); AST (SGOT) 63 U/L (11-34); Albumin 2.7 g/dL (3.1-4.5); Alkaline Phosphatase 240 U/L (40-110); Anion Gap 18 mmol/L (10-20); BUN (Urea Nitrogen) 35 mg/dL (7.0-18.7); Bilirubin, Total 0.6 mg/dL (0.3-1.2); Calc. Creatinine Clearance 24 mL/min (70-130); Calcium 7.5 mg/dL (7.8-10.44); Carbon Dioxide 22 mmol/L (22-29); Chloride 97 mmol/L (98-107); Estimated GFR 12; Globulin 3.1 g/dL (2.4-3.5); Glucose 82 mg/dL (70-105); Potassium 5.6 mmol/L (3.5-5.1); Protein, Total 5.8 g/dL (6.0-8.3); Sodium 131 mmol/L (136-145)
[2024-08-11] MEDS: CEFAZOLIN 2 GM in Sodium Chloride 0.9% 100 ML IVPB SCH (20:18)
[2024-08-11] MEDS: traZODone HCl 50 MG TAB PO SCH (20:18)
[2024-08-11] MEDS: hydrOXYzine 25 MG TAB PO SCH (20:19)
[2024-08-12 06:03] LABS: #Basophils 0.05 10x3/uL (0.0-0.2); %Basophils 0.9 % (0.0-1.0); %Eosinophils 0.9 % (0.0-10.0); %Lymphocytes 20.7 % (21.0-51.0); %Monocytes 7.4 % (0.0-10.0); %Neutrophils 69.6 % (42.0-75.0); Hematocrit 29.9 % (36.0-47.0); Hemoglobin 9.5 g/dL (12.0-16.0); Mean Corpuscular HGB CONC 31.8 g/dL (32.0-36.0); Mean Corpuscular Hemoglobin 30.4 pg (27.0-31.0); Mean Corpuscular Volume 95.8 fL (78.0-98.0); Mean Platelet Volume 11.1 fL (7.4-10.4); Platelet Count 184 10x3/uL (130-400); RBC Distribution Width 15.4 % (11.5-14.5); Red Blood Cell (RBC) Count 3.12 mill/uL (4.20-5.40)
[2024-08-12 06:09] LABS: ALT (SGPT) 28 U/L (Less than 34); AST (SGOT) 42 U/L (11-34); Albumin 2.5 g/dL (3.1-4.5); Alkaline Phosphatase 220 U/L (40-110); Anion Gap 18 mmol/L (10-20); BUN (Urea Nitrogen) 32 mg/dL (7.0-18.7); Bilirubin, Total 0.6 mg/dL (0.3-1.2); Calc. Creatinine Clearance 26 mL/min (70-130); Carbon Dioxide 24 mmol/L (22-29); Chloride 97 mmol/L (98-107); Estimated GFR 13; Globulin 3.2 g/dL (2.4-3.5); Glucose 63 mg/dL (70-105); Potassium 4.9 mmol/L (3.5-5.1); Protein, Total 5.7 g/dL (6.0-8.3); Sodium 134 mmol/L (136-145)
[2024-08-12] MEDS: hydrALAZINE 20 MG/ML VIAL SLOW IVP SCH (09:47)
[2024-08-12] MEDS: NIFEdipine XL 30 MG ER.TAB PO SCH (11:49)
[2024-08-13 04:59] LABS: #Basophils 0.04 10x3/uL (0.0-0.2); %Basophils 0.7 % (0.0-1.0); %Eosinophils 2.6 % (0.0-10.0); %Monocytes 8.5 % (0.0-10.0); %Neutrophils 72.8 % (42.0-75.0); Hematocrit 29.8 % (36.0-47.0); Hemoglobin 9.6 g/dL (12.0-16.0); Mean Corpuscular HGB CONC 32.2 g/dL (32.0-36.0); Mean Corpuscular Hemoglobin 30.5 pg (27.0-31.0); Mean Corpuscular Volume 94.6 fL (78.0-98.0); Mean Platelet Volume 10.5 fL (7.4-10.4); Platelet Count 185 10x3/uL (130-400); RBC Distribution Width 15.4 % (11.5-14.5); Red Blood Cell (RBC) Count 3.15 mill/uL (4.20-5.40)
[2024-08-13 05:40] LABS: ALT (SGPT) 9 U/L (Less than 34); AST (SGOT) 29 U/L (11-34); Albumin 2.5 g/dL (3.1-4.5); Alkaline Phosphatase 229 U/L (40-110); Anion Gap 16 mmol/L (10-20); BUN (Urea Nitrogen) 41 mg/dL (7.0-18.7); Bilirubin, Total 0.5 mg/dL (0.3-1.2); Calc. Creatinine Clearance 20 mL/min (70-130); Calcium 7.8 mg/dL (7.8-10.44); Carbon Dioxide 24 mmol/L (22-29); Chloride 95 mmol/L (98-107); Estimated GFR 9; Globulin 3.2 g/dL (2.4-3.5); Glucose 103 mg/dL (70-105); Potassium 4.9 mmol/L (3.5-5.1); Protein, Total 5.7 g/dL (6.0-8.3); Sodium 130 mmol/L (136-145)
[2024-08-13] MEDS: NIFEdipine XL 30 MG ER.TAB PO SCH (08:48)
[2024-08-14 04:51] LABS: #Basophils 0.04 10x3/uL (0.0-0.2); %Basophils 0.8 % (0.0-1.0); %Eosinophils 2.3 % (0.0-10.0); %Lymphocytes 16.7 % (21.0-51.0); %Monocytes 8.2 % (0.0-10.0); %Neutrophils 71.8 % (42.0-75.0); Hemoglobin 10.3 g/dL (12.0-16.0); Mean Corpuscular HGB CONC 33.2 g/dL (32.0-36.0); Mean Corpuscular Hemoglobin 30.7 pg (27.0-31.0); Mean Corpuscular Volume 92.3 fL (78.0-98.0); Mean Platelet Volume 10.7 fL (7.4-10.4); Platelet Count 198 10x3/uL (130-400); RBC Distribution Width 15.2 % (11.5-14.5); Red Blood Cell (RBC) Count 3.36 mill/uL (4.20-5.40)
[2024-08-14 05:38] LABS: ALT (SGPT) Less than 7 U/L (Less than 34); AST (SGOT) 35 U/L (11-34); Albumin 2.8 g/dL (3.1-4.5); Alkaline Phosphatase 226 U/L (40-110); Anion Gap 18 mmol/L (10-20); BUN (Urea Nitrogen) 27 mg/dL (7.0-18.7); Bilirubin, Total 0.4 mg/dL (0.3-1.2); Calc. Creatinine Clearance 27 mL/min (70-130); Calcium 8.1 mg/dL (7.8-10.44); Carbon Dioxide 25 mmol/L (22-29); Chloride 94 mmol/L (98-107); Estimated GFR 13; Globulin 3.3 g/dL (2.4-3.5); Glucose 81 mg/dL (70-105); Potassium 4.7 mmol/L (3.5-5.1); Protein, Total 6.1 g/dL (6.0-8.3); Sodium 132 mmol/L (136-145)
[2024-08-14] MEDS: diphenhydrAMINE 25 MG CAP PO SCH (23:04)
[2024-08-15 04:31] LABS: #Basophils 0.03 10x3/uL (0.0-0.2); %Basophils 0.6 % (0.0-1.0); %Lymphocytes 16.2 % (21.0-51.0); %Monocytes 9.2 % (0.0-10.0); %Neutrophils 70.8 % (42.0-75.0); Hematocrit 27.9 % (36.0-47.0); Hemoglobin 9.1 g/dL (12.0-16.0); Mean Corpuscular HGB CONC 32.6 g/dL (32.0-36.0); Mean Corpuscular Hemoglobin 30.5 pg (27.0-31.0); Mean Corpuscular Volume 93.6 fL (78.0-98.0); Mean Platelet Volume 10.6 fL (7.4-10.4); Platelet Count 203 10x3/uL (130-400); RBC Distribution Width 15.2 % (11.5-14.5); Red Blood Cell (RBC) Count 2.98 mill/uL (4.20-5.40)
[2024-08-15 04:48] LABS: ALT (SGPT) Less than 7 U/L (Less than 34); AST (SGOT) 20 U/L (11-34); Albumin 2.4 g/dL (3.1-4.5); Alkaline Phosphatase 208 U/L (40-110); Anion Gap 18 mmol/L (10-20); BUN (Urea Nitrogen) 37 mg/dL (7.0-18.7); Bilirubin, Total 0.4 mg/dL (0.3-1.2); Calc. Creatinine Clearance 23 mL/min (70-130); Calcium 7.5 mg/dL (7.8-10.44); Carbon Dioxide 24 mmol/L (22-29); Chloride 94 mmol/L (98-107); Estimated GFR 10; Glucose 93 mg/dL (70-105); Potassium 5.3 mmol/L (3.5-5.1); Protein, Total 5.4 g/dL (6.0-8.3); Sodium 131 mmol/L (136-145)
[2024-08-15] MEDS: Simethicone Chewable 80 MG TAB PO SCH (13:28)
[2024-08-15] MEDS: diphenhydrAMINE 25 MG CAP PO SCH (13:38)
[2024-08-15 14:51] VITALS: BMI 32.0
[2024-08-15] MEDS: Acetaminophen 500 MG TAB PO SCH (19:39)
[2024-08-16] MEDS: diphenhydrAMINE 25 MG CAP PO SCH (00:08)
[2024-08-16 04:30] LABS: #Basophils 0.05 10x3/uL (0.0-0.2); %Basophils 0.8 % (0.0-1.0); Mean Platelet Volume 10.1 fL (7.4-10.4); Red Blood Cell (RBC) Count 3.26 mill/uL (4.20-5.40)
[2024-08-16 04:46] LABS: %Eosinophils 1.8 % (0.0-10.0); %Lymphocytes 17.2 % (21.0-51.0); %Monocytes 7.5 % (0.0-10.0); %Neutrophils 72.2 % (42.0-75.0); Hematocrit 31.1 % (36.0-47.0); Mean Corpuscular HGB CONC 32.2 g/dL (32.0-36.0); Mean Corpuscular Hemoglobin 30.7 pg (27.0-31.0); Mean Corpuscular Volume 95.4 fL (78.0-98.0); Platelet Count 226 10x3/uL (130-400); RBC Distribution Width 15.1 % (11.5-14.5)
[2024-08-16 04:48] LABS: ALT (SGPT) Less than 7 U/L (Less than 34); AST (SGOT) 17 U/L (11-34); Albumin 2.8 g/dL (3.1-4.5); Alkaline Phosphatase 257 U/L (40-110); Anion Gap 15 mmol/L (10-20); BUN (Urea Nitrogen) 29 mg/dL (7.0-18.7); Bilirubin, Total 0.4 mg/dL (0.3-1.2); Calc. Creatinine Clearance 28 mL/min (70-130); Calcium 8.1 mg/dL (7.8-10.44); Carbon Dioxide 25 mmol/L (22-29); Chloride 93 mmol/L (98-107); Estimated GFR 13; Globulin 3.4 g/dL (2.4-3.5); Glucose 83 mg/dL (70-105); Potassium 4.8 mmol/L (3.5-5.1); Protein, Total 6.2 g/dL (6.0-8.3); Sodium 128 mmol/L (136-145)
[2024-08-16 12:58] VITALS: BP 136/87; TEMP 98.4
[2024-08-16] MEDS ORDERED: Apixaban 5 MG TAB PO SCH (21:00)
== END 2024-08-16 14:14 | disposition home health service (06) | DRG 640 ==
LOC: ERS 15:46 → CCU 18:07 → MSONC 08-10 18:22
PROVIDERS: ADMIT Student in an Organized Health Care Education/Training Program; ATTEND Student in an Organized Health Care Education/Training Program
PROC: 5A1D70Z Performance of Urinary Filtration, Intermittent, Less than 6 Hours Per Day (ICD-10-PCS; 2024-08-05)
PROC: 30233J1 Transfusion of Nonautologous Serum Albumin into Peripheral Vein, Percutaneous Approach (ICD-10-PCS; principal; 2024-08-09)
DX: E87.70 Fluid overload, unspecified (principal); I21.A1 Myocardial infarction type 2; I50.33 Acute on chronic diastolic (congestive) heart failure; J96.01 Acute respiratory failure with hypoxia; N18.6 End stage renal disease; N17.9 Acute kidney failure, unspecified; I13.2 Hypertensive heart and chronic kidney disease with heart failure and with stage 5 chronic kidney disease, or end stage renal disease; R18.8 Other ascites; N39.0 Urinary tract infection, site not specified; R78.81 Bacteremia; E87.1 Hypo-osmolality and hyponatremia; E78.5 Hyperlipidemia, unspecified; I25.10 Atherosclerotic heart disease of native coronary artery without angina pectoris; K21.9 Gastro-esophageal reflux disease without esophagitis; E87.5 Hyperkalemia; I95.9 Hypotension, unspecified; E88.09 Other disorders of plasma-protein metabolism, not elsewhere classified; K74.60 Unspecified cirrhosis of liver; G25.81 Restless legs syndrome; D63.1 Anemia in chronic kidney disease; M54.50 Low back pain, unspecified; G89.29 Other chronic pain; B95.62 Methicillin resistant Staphylococcus aureus infection as the cause of diseases classified elsewhere; F32.9 Major depressive disorder, single episode, unspecified; L89.152 Pressure ulcer of sacral region, stage 2; Z86.73 Personal history of transient ischemic attack (TIA), and cerebral infarction without residual deficits; Z89.511 Acquired absence of right leg below knee; Z99.2 Dependence on renal dialysis; Z88.1 Allergy status to other antibiotic agents; Z88.8 Allergy status to other drugs, medicaments and biological substances; Z79.01 Long term (current) use of anticoagulants; Z79.02 Long term (current) use of antithrombotics/antiplatelets; Z79.899 Other long term (current) drug therapy; Z95.820 Peripheral vascular angioplasty status with implants and grafts; Z87.891 Personal history of nicotine dependence
CPT/HCPCS: 36415; 36416; 49083; 51702; 71045; 76882; 80053; 81001; 82042; 82150; 82805; 82945; 83605; 83615; 83735; 83880; 84100; 84145; 84484; 85025; 85060; 85610; 85730; 87040; 87070; 87077; 87086; 87149; 87186; 87205; 89051; 89060; 90935; 93005; 93306; 94760; 96374; 96375; 97139; G0257; J0360; J0613; J0696; J1815; J1940; J3010; J3370; P9047

== ENCOUNTER 2025-01-29 12:32 | Day surgery (SDC) | payer OTHER, MEDICAID ==
[2025-01-29] MEDS ORDERED: Lidocaine 1% PF 5 ML VIAL ONE ×2 (13:29→14:12)
[2025-01-29] MEDS ORDERED: Sodium Bicarbonate 2.5 MEQ/5 ML SDV ONE (13:29)
== END 2025-01-29 15:00 | disposition home or self-care (01) ==
LOC: ULT 12:32
PROVIDERS: ATTEND Family Medicine
PROC: 0W9G3ZZ Drainage of Peritoneal Cavity, Percutaneous Approach (ICD-10-PCS; principal; 2025-01-29)
DX: R18.8 Other ascites (principal); Z88.8 Allergy status to other drugs, medicaments and biological substances; Z88.1 Allergy status to other antibiotic agents; Z91.048 Other nonmedicinal substance allergy status
CPT/HCPCS: 49083

== ENCOUNTER 2025-02-05 11:50 | Day surgery (SDC) | payer OTHER, MEDICAID ==
[2025-02-05 12:30] LABS: #Basophils 0.04 10x3/uL (0.0-0.2); #Eosinophils 0.06 10x3/uL (0.0-0.7); #Monocytes 0.26 10x3/uL (0.11-0.59); #Neutrophils 3.77 10x3/uL (1.40-6.50); %Basophils 0.8 % (0.0-1.0); %Eosinophils 1.2 % (0.0-10.0); %Lymphocytes 19.7 % (21.0-51.0); %Monocytes 5.0 % (0.0-10.0); %Neutrophils 72.9 % (42.0-75.0); Hematocrit 35.4 % (36.0-47.0); Hemoglobin 11.1 g/dL (12.0-16.0); Mean Corpuscular Hemoglobin 30.1 pg (27.0-31.0); Mean Corpuscular Volume 95.9 fL (78.0-98.0); Platelet Count 186 10x3/uL (130-400); Red Blood Cell (RBC) Count 3.69 mill/uL (4.20-5.40); White Blood Cell (WBC) Count 5.17 10x3/uL (4.8-10.8)
[2025-02-05 12:53] LABS: INR-International Normal Ratio 1.9; PTT 45.5 sec (22.9-36.1); Prothrombin Time 21.5 sec (12.0-14.7)
[2025-02-05] MEDS ORDERED: Sodium Bicarbonate 2.5 MEQ/5 ML SDV ONE (13:12)
[2025-02-05] MEDS ORDERED: Lidocaine 1% w/Epinephrine 1:100K 20 ML VIAL ONE (13:12)
== END 2025-02-05 14:35 | disposition home or self-care (01) ==
LOC: ULT 11:50
PROVIDERS: ATTEND Family Medicine
PROC: 0W9G3ZZ Drainage of Peritoneal Cavity, Percutaneous Approach (ICD-10-PCS; principal; 2025-02-05)
DX: K74.60 Unspecified cirrhosis of liver (principal); R18.8 Other ascites; I12.0 Hypertensive chronic kidney disease with stage 5 chronic kidney disease or end stage renal disease; N18.6 End stage renal disease; E11.22 Type 2 diabetes mellitus with diabetic chronic kidney disease; E11.40 Type 2 diabetes mellitus with diabetic neuropathy, unspecified; E11.319 Type 2 diabetes mellitus with unspecified diabetic retinopathy without macular edema; E11.628 Type 2 diabetes mellitus with other skin complications; E11.621 Type 2 diabetes mellitus with foot ulcer; L97.521 Non-pressure chronic ulcer of other part of left foot limited to breakdown of skin; F41.9 Anxiety disorder, unspecified; F32.A Depression, unspecified; F17.210 Nicotine dependence, cigarettes, uncomplicated; Z86.73 Personal history of transient ischemic attack (TIA), and cerebral infarction without residual deficits; Z98.51 Tubal ligation status; Z88.8 Allergy status to other drugs, medicaments and biological substances; Z91.048 Other nonmedicinal substance allergy status; Z79.899 Other long term (current) drug therapy
CPT/HCPCS: 36415; 49083; 85025; 85610; 85730

== ENCOUNTER → 2025-02-12 | Day surgery (SDC) | payer OTHER, MEDICAID ==
[~2025-02-12] MED LIST changes: -Iopamidol 370 76% 100 ML VIAL ONE; +Lidocaine 1% PF 5 ML VIAL ONE; +Sodium Bicarbonate 2.5 MEQ/5 ML SDV ONE
== END ==
LOC: ULT 12:44
PROVIDERS: ATTEND Family Medicine
PROC: 0W9G3ZZ Drainage of Peritoneal Cavity, Percutaneous Approach (ICD-10-PCS; principal; 2025-02-12)
DX: R18.8 Other ascites (principal); Z88.1 Allergy status to other antibiotic agents; Z91.040 Latex allergy status; Z91.048 Other nonmedicinal substance allergy status; Z88.8 Allergy status to other drugs, medicaments and biological substances
CPT/HCPCS: 49083

== ENCOUNTER 2025-02-19 11:40 | Day surgery (SDC) | payer OTHER, MEDICAID ==
[2025-02-19] MEDS ORDERED: Sodium Bicarbonate 2.5 MEQ/5 ML SDV ONE (13:16)
[2025-02-19] MEDS ORDERED: Lidocaine 1% PF 5 ML VIAL ONE (13:16)
== END 2025-02-19 14:35 | disposition home or self-care (01) ==
LOC: ULT 11:40
PROVIDERS: ATTEND Family Medicine
PROC: 0W9G3ZZ Drainage of Peritoneal Cavity, Percutaneous Approach (ICD-10-PCS; principal; 2025-02-19)
DX: K74.60 Unspecified cirrhosis of liver (principal); R18.8 Other ascites; E11.22 Type 2 diabetes mellitus with diabetic chronic kidney disease; N18.6 End stage renal disease; E11.40 Type 2 diabetes mellitus with diabetic neuropathy, unspecified; E11.628 Type 2 diabetes mellitus with other skin complications; E11.319 Type 2 diabetes mellitus with unspecified diabetic retinopathy without macular edema; E11.621 Type 2 diabetes mellitus with foot ulcer; L97.521 Non-pressure chronic ulcer of other part of left foot limited to breakdown of skin; S81.801A Unspecified open wound, right lower leg, initial encounter; Z88.1 Allergy status to other antibiotic agents; Z88.8 Allergy status to other drugs, medicaments and biological substances; W19.XXXA Unspecified fall, initial encounter
CPT/HCPCS: 49083

== ENCOUNTER 2025-02-26 12:21 | Day surgery (SDC) | payer OTHER, MEDICAID ==
[2025-02-26] MEDS ORDERED: Lidocaine 1% PF 5 ML VIAL ONE ×2 (13:39→14:07)
[2025-02-26] MEDS ORDERED: Sodium Bicarbonate 2.5 MEQ/5 ML SDV ONE (13:39)
== END 2025-02-26 15:00 | disposition home or self-care (01) ==
LOC: ULT 12:21
PROVIDERS: ATTEND Family Medicine
PROC: 0W9G3ZZ Drainage of Peritoneal Cavity, Percutaneous Approach (ICD-10-PCS; principal; 2025-02-26)
DX: R18.8 Other ascites (principal)
CPT/HCPCS: 49083

== ENCOUNTER 2025-03-05 12:13 | Day surgery (SDC) | payer OTHER, MEDICAID ==
[2025-03-05] MEDS ORDERED: Lidocaine 1% PF 5 ML VIAL ONE (12:38)
[2025-03-05] MEDS ORDERED: Sodium Bicarbonate 2.5 MEQ/5 ML SDV ONE (12:38)
== END 2025-03-05 14:25 | disposition home or self-care (01) ==
LOC: ULT 12:13
PROVIDERS: ATTEND Family Medicine
PROC: 0W9G30Z Drainage of Peritoneal Cavity with Drainage Device, Percutaneous Approach (ICD-10-PCS; principal; 2025-03-05)
DX: K74.60 Unspecified cirrhosis of liver (principal); R18.8 Other ascites; I13.0 Hypertensive heart and chronic kidney disease with heart failure and stage 1 through stage 4 chronic kidney disease, or unspecified chronic kidney disease; I50.9 Heart failure, unspecified; E78.5 Hyperlipidemia, unspecified; I25.10 Atherosclerotic heart disease of native coronary artery without angina pectoris; E11.22 Type 2 diabetes mellitus with diabetic chronic kidney disease; N18.5 Chronic kidney disease, stage 5; F32.A Depression, unspecified; F41.9 Anxiety disorder, unspecified; E11.40 Type 2 diabetes mellitus with diabetic neuropathy, unspecified; Z86.73 Personal history of transient ischemic attack (TIA), and cerebral infarction without residual deficits; F17.210 Nicotine dependence, cigarettes, uncomplicated; Z79.4 Long term (current) use of insulin; Z79.02 Long term (current) use of antithrombotics/antiplatelets; Z79.84 Long term (current) use of oral hypoglycemic drugs; Z79.899 Other long term (current) drug therapy
CPT/HCPCS: 49083

== ENCOUNTER 2025-03-12 12:40 | Day surgery (SDC) | payer OTHER, MEDICAID ==
[2025-03-12 13:09] LABS: #Basophils 0.03 10x3/uL (0.0-0.2); #Eosinophils 0.09 10x3/uL (0.0-0.7); #Monocytes 0.28 10x3/uL (0.11-0.59); #Neutrophils 5.45 10x3/uL (1.40-6.50); %Basophils 0.4 % (0.0-1.0); %Eosinophils 1.3 % (0.0-10.0); %Lymphocytes 15.1 % (21.0-51.0); %Monocytes 4.0 % (0.0-10.0); %Neutrophils 78.6 % (42.0-75.0); Hematocrit 36.3 % (36.0-47.0); Hemoglobin 10.9 g/dL (12.0-16.0); Mean Corpuscular Hemoglobin 28.8 pg (27.0-31.0); Mean Corpuscular Volume 95.8 fL (78.0-98.0); Platelet Count 242 10x3/uL (130-400); Red Blood Cell (RBC) Count 3.79 mill/uL (4.20-5.40); White Blood Cell (WBC) Count 6.94 10x3/uL (4.8-10.8)
[2025-03-12] MEDS ORDERED: Lidocaine 1% PF 5 ML VIAL ONE ×2 (13:12→14:03)
[2025-03-12] MEDS ORDERED: Sodium Bicarbonate 2.5 MEQ/5 ML SDV ONE (13:13)
[2025-03-12 13:34] LABS: INR-International Normal Ratio 1.2; Prothrombin Time 15.0 sec (12.0-14.7)
[2025-03-12 13:35] LABS: PTT 35.5 sec (22.9-36.1)
[2025-03-12] MEDS ORDERED: Lidocaine 1% w/Epinephrine 1:100K 20 ML VIAL ONE (14:08)
== END 2025-03-12 15:00 | disposition home or self-care (01) ==
LOC: ULT 12:40
PROVIDERS: ATTEND Family Medicine
PROC: 0W9G3ZZ Drainage of Peritoneal Cavity, Percutaneous Approach (ICD-10-PCS; principal; 2025-03-12)
DX: R18.8 Other ascites (principal); Z91.040 Latex allergy status; Z91.048 Other nonmedicinal substance allergy status; Z88.8 Allergy status to other drugs, medicaments and biological substances; Z88.1 Allergy status to other antibiotic agents
CPT/HCPCS: 49083; 85025; 85610; 85730

== ENCOUNTER 2025-03-18 15:07 | Emergency (ER) | payer OTHER, MEDICAID | END 2025-03-18 17:22 | disposition home or self-care (01) | LOC: ERS 15:07 | DX: M54.50 Low back pain, unspecified (principal); I13.2 Hypertensive heart and chronic kidney disease with heart failure and with stage 5 chronic kidney disease, or end stage renal disease; I50.9 Heart failure, unspecified; N18.6 End stage renal disease; I25.2 Old myocardial infarction; E11.22 Type 2 diabetes mellitus with diabetic chronic kidney disease; Z86.73 Personal history of transient ischemic attack (TIA), and cerebral infarction without residual deficits; Z99.2 Dependence on renal dialysis; Z79.01 Long term (current) use of anticoagulants; Z79.899 Other long term (current) drug therapy; Z95.5 Presence of coronary angioplasty implant and graft; W05.0XXA Fall from non-moving wheelchair, initial encounter | CPT/HCPCS: 70450; 72131; 72192 ==

== ENCOUNTER 2025-03-26 12:32 | Day surgery (SDC) | payer OTHER ==
[2025-03-26] MEDS ORDERED: Lidocaine 1% w/Epinephrine 1:100K 20 ML VIAL ONE (13:27)
[2025-03-26] MEDS ORDERED: Sodium Bicarbonate 2.5 MEQ/5 ML SDV ONE (13:27)
== END 2025-03-26 14:30 | disposition home or self-care (01) ==
LOC: ULT 12:32
PROVIDERS: ATTEND Family Medicine
PROC: 0W9G3ZZ Drainage of Peritoneal Cavity, Percutaneous Approach (ICD-10-PCS; principal; 2025-03-26)
DX: K74.60 Unspecified cirrhosis of liver (principal); R18.8 Other ascites; I12.0 Hypertensive chronic kidney disease with stage 5 chronic kidney disease or end stage renal disease; N18.6 End stage renal disease; E11.22 Type 2 diabetes mellitus with diabetic chronic kidney disease; E11.40 Type 2 diabetes mellitus with diabetic neuropathy, unspecified; E11.621 Type 2 diabetes mellitus with foot ulcer; E11.628 Type 2 diabetes mellitus with other skin complications; E11.319 Type 2 diabetes mellitus with unspecified diabetic retinopathy without macular edema; L97.521 Non-pressure chronic ulcer of other part of left foot limited to breakdown of skin; F41.9 Anxiety disorder, unspecified; F32.A Depression, unspecified; F17.210 Nicotine dependence, cigarettes, uncomplicated; Z86.73 Personal history of transient ischemic attack (TIA), and cerebral infarction without residual deficits; Z95.5 Presence of coronary angioplasty implant and graft; Z87.59 Personal history of other complications of pregnancy, childbirth and the puerperium; Z98.51 Tubal ligation status; Z99.2 Dependence on renal dialysis; Z88.8 Allergy status to other drugs, medicaments and biological substances; Z91.048 Other nonmedicinal substance allergy status; Z79.899 Other long term (current) drug therapy
CPT/HCPCS: 49083

== ENCOUNTER → 2025-04-02 | Day surgery (SDC) | payer OTHER ==
[~2025-04-02] MED LIST changes: -Sodium Bicarbonate 2.5 MEQ/5 ML SDV ONE
[2025-04-02 15:02] VITALS: BP 139/61
== END ==
LOC: ULT 12:14
PROVIDERS: ATTEND Family Medicine
PROC: 0W9G3ZZ Drainage of Peritoneal Cavity, Percutaneous Approach (ICD-10-PCS; principal; 2025-04-02)
DX: K74.60 Unspecified cirrhosis of liver (principal); R18.8 Other ascites; I13.2 Hypertensive heart and chronic kidney disease with heart failure and with stage 5 chronic kidney disease, or end stage renal disease; I50.9 Heart failure, unspecified; N18.6 End stage renal disease; I25.10 Atherosclerotic heart disease of native coronary artery without angina pectoris; E11.22 Type 2 diabetes mellitus with diabetic chronic kidney disease; E78.5 Hyperlipidemia, unspecified; E11.40 Type 2 diabetes mellitus with diabetic neuropathy, unspecified; E11.319 Type 2 diabetes mellitus with unspecified diabetic retinopathy without macular edema; E11.628 Type 2 diabetes mellitus with other skin complications; E11.621 Type 2 diabetes mellitus with foot ulcer; L97.521 Non-pressure chronic ulcer of other part of left foot limited to breakdown of skin; F41.9 Anxiety disorder, unspecified; F32.9 Major depressive disorder, single episode, unspecified; F17.210 Nicotine dependence, cigarettes, uncomplicated; Z98.51 Tubal ligation status; Z86.73 Personal history of transient ischemic attack (TIA), and cerebral infarction without residual deficits; Z95.5 Presence of coronary angioplasty implant and graft; Z87.59 Personal history of other complications of pregnancy, childbirth and the puerperium; Z79.02 Long term (current) use of antithrombotics/antiplatelets; Z79.899 Other long term (current) drug therapy
CPT/HCPCS: 49083; C1729

== ENCOUNTER 2025-04-07 12:47 | Inpatient (IN) | payer OTHER ==
[2025-04-07 14:00] LABS: #Basophils 0.03 10x3/uL (0.0-0.2); #Eosinophils 0.06 10x3/uL (0.0-0.7); #Monocytes 0.29 10x3/uL (0.11-0.59); #Neutrophils 3.26 10x3/uL (1.40-6.50); %Basophils 0.7 % (0.0-1.0); %Eosinophils 1.4 % (0.0-10.0); %Lymphocytes 15.1 % (21.0-51.0); %Monocytes 6.7 % (0.0-10.0); %Neutrophils 75.9 % (42.0-75.0); Hematocrit 33.8 % (36.0-47.0); Hemoglobin 10.4 g/dL (12.0-16.0); Mean Corpuscular Hemoglobin 29.5 pg (27.0-31.0); Mean Corpuscular Volume 96.0 fL (78.0-98.0); Platelet Count 165 10x3/uL (130-400); Red Blood Cell (RBC) Count 3.52 mill/uL (4.20-5.40); White Blood Cell (WBC) Count 4.30 10x3/uL (4.8-10.8)
[2025-04-07 14:29] LABS: ALT (SGPT) 8 U/L (Less than 34); AST (SGOT) 18 U/L (11-34); Albumin 2.5 g/dL (3.1-4.5); Alkaline Phosphatase 205 U/L (40-110); Anion Gap 20 mmol/L (10-20); BUN (Urea Nitrogen) 42 mg/dL (7.0-18.7); Bilirubin, Total 0.3 mg/dL (0.3-1.2); Calc. Creatinine Clearance 0 mL/min (70-130); Calcium 7.8 mg/dL (7.8-10.44); Carbon Dioxide 19 mmol/L (22-29); Chloride 101 mmol/L (98-107); Globulin 2.8 g/dL (2.4-3.5); Glucose 116 mg/dL (70-105); Magnesium 1.8 mg/dL (1.6-2.6); Potassium 5.3 mmol/L (3.5-5.1); Sodium 135 mmol/L (136-145)
[2025-04-07] MEDS ORDERED: Acetaminophen 325 MG TAB PO PRN (16:49)
[2025-04-07] MEDS: Mometasone 100 MCG HFA INHALER (RT USE) INH SCH (19:34)
[2025-04-07] MEDS ORDERED: FLU (Fluarix Triv) 25-26 (6MOS UP)/PF 45 MCG/0.5 ML Syringe IM ONE (20:30)
[2025-04-07] MEDS: HYDROcodone/Acetaminophen 10/325 mg Tablet PO PRN (20:46)
[2025-04-07] MEDS: Apixaban 2.5 MG TAB PO SCH (20:46)
[2025-04-07] MEDS: Gabapentin 300 MG CAP PO SCH (20:46)
[2025-04-07] MEDS ORDERED: Heparin 5,000 UNITS/ML VIAL SC SCH (21:00)
[2025-04-08 05:41] LABS: Bacteria/HPF 2+ HPF (None Seen); CAUTI Indications for Culture Dysuria,urgency,freq; Glucose, Urine (Dipstick) Normal (Negative); Leukocyte 500 Leu/uL (Negative); Protein, Urine (Dipstick) 200 mg/dL (Neg-Trace); Specific Gravity, Urine 1.010 (1.002-1.036); WBC/HPF Greater than 50 HPF (0-3)
[2025-04-08 05:43] LABS: Urine Culture Reflex Yes Yes
[2025-04-08] MEDS ORDERED: Glucagon 1 MG/ML KIT IM PRN (07:14)
[2025-04-08] MEDS ORDERED: Dextrose 50% Abboject 50 ML SYRINGE SLOW IVP PRN (07:14)
[2025-04-08 07:57] LABS: #Basophils 0.04 10x3/uL (0.0-0.2); #Eosinophils 0.08 10x3/uL (0.0-0.7); #Monocytes 0.40 10x3/uL (0.11-0.59); #Neutrophils 4.29 10x3/uL (1.40-6.50); %Basophils 0.7 % (0.0-1.0); %Eosinophils 1.4 % (0.0-10.0); %Lymphocytes 16.7 % (21.0-51.0); %Monocytes 6.9 % (0.0-10.0); %Neutrophils 74.0 % (42.0-75.0); Hematocrit 34.5 % (36.0-47.0); Hemoglobin 10.6 g/dL (12.0-16.0); Mean Corpuscular Hemoglobin 30.0 pg (27.0-31.0); Mean Corpuscular Volume 97.7 fL (78.0-98.0); Platelet Count 178 10x3/uL (130-400); Red Blood Cell (RBC) Count 3.53 mill/uL (4.20-5.40); White Blood Cell (WBC) Count 5.80 10x3/uL (4.8-10.8)
[2025-04-08 08:10] LABS: ALT (SGPT) 8 U/L (Less than 34); AST (SGOT) 11 U/L (11-34); Albumin 2.4 g/dL (3.1-4.5); Alkaline Phosphatase 195 U/L (40-110); Anion Gap 17 mmol/L (10-20); BUN (Urea Nitrogen) 51 mg/dL (7.0-18.7); Bilirubin, Total 0.3 mg/dL (0.3-1.2); Calc. Creatinine Clearance 19 mL/min (70-130); Calcium 7.7 mg/dL (7.8-10.44); Carbon Dioxide 24 mmol/L (22-29); Chloride 101 mmol/L (98-107); Globulin 2.7 g/dL (2.4-3.5); Glucose 128 mg/dL (70-105); Potassium 5.4 mmol/L (3.5-5.1); Sodium 137 mmol/L (136-145)
[2025-04-08] MEDS: Pantoprazole 40 MG DR.TAB PO SCH (08:34)
[2025-04-08] MEDS: Citalopram 20 MG TAB PO SCH (08:34)
[2025-04-08] MEDS: NIFEdipine XL 60 MG ER.TAB PO SCH (08:35)
[2025-04-08] MEDS: Ketorolac Tromethamine 30 MG (1 mL) VIAL IVP SCH (11:45)
[2025-04-08] MEDS: cefTRIAXone\\ROCEPHIN 2 GM in Sodium Chloride 0.9% 100 ML IVPB SCH (11:47)
[2025-04-08] MEDS: diphenhydrAMINE 50 MG/ML VIAL IVP SCH (11:47)
[2025-04-08] MEDS: Albumin 25% 25 GM (100 mL) BOT IVPB SCH (13:45)
[2025-04-08] MEDS: Melatonin 3 MG TAB PO PRN (19:57)
[2025-04-09 06:08] LABS: #Basophils 0.03 10x3/uL (0.0-0.2); #Eosinophils 0.07 10x3/uL (0.0-0.7); #Monocytes 0.34 10x3/uL (0.11-0.59); #Neutrophils 4.32 10x3/uL (1.40-6.50); %Basophils 0.5 % (0.0-1.0); %Eosinophils 1.3 % (0.0-10.0); %Lymphocytes 14.3 % (21.0-51.0); %Monocytes 6.1 % (0.0-10.0); %Neutrophils 77.4 % (42.0-75.0); Hematocrit 33.0 % (36.0-47.0); Hemoglobin 10.0 g/dL (12.0-16.0); Mean Corpuscular Hemoglobin 29.4 pg (27.0-31.0); Mean Corpuscular Volume 97.1 fL (78.0-98.0); Platelet Count 165 10x3/uL (130-400); Red Blood Cell (RBC) Count 3.40 mill/uL (4.20-5.40); White Blood Cell (WBC) Count 5.58 10x3/uL (4.8-10.8)
[2025-04-09 06:24] LABS: ALT (SGPT) 7 U/L (Less than 34); AST (SGOT) 11 U/L (11-34); Albumin 2.8 g/dL (3.1-4.5); Alkaline Phosphatase 175 U/L (40-110); Anion Gap 18 mmol/L (10-20); BUN (Urea Nitrogen) 37 mg/dL (7.0-18.7); Bilirubin, Total 0.3 mg/dL (0.3-1.2); Calc. Creatinine Clearance 24 mL/min (70-130); Calcium 7.6 mg/dL (7.8-10.44); Carbon Dioxide 24 mmol/L (22-29); Chloride 101 mmol/L (98-107); Globulin 2.5 g/dL (2.4-3.5); Glucose 137 mg/dL (70-105); Potassium 5.1 mmol/L (3.5-5.1); Sodium 138 mmol/L (136-145)
[2025-04-09] MEDS ORDERED: Sodium Bicarbonate 2.5 MEQ/5 ML SDV ONE (10:38)
[2025-04-09] MEDS ORDERED: Lidocaine 1% PF 5 ML VIAL ONE ×2 (10:38→10:59)
[2025-04-10 05:25] LABS: #Basophils 0.03 10x3/uL (0.0-0.2); #Eosinophils 0.06 10x3/uL (0.0-0.7); #Monocytes 0.33 10x3/uL (0.11-0.59); #Neutrophils 4.01 10x3/uL (1.40-6.50); %Basophils 0.6 % (0.0-1.0); %Eosinophils 1.1 % (0.0-10.0); %Lymphocytes 15.8 % (21.0-51.0); %Monocytes 6.2 % (0.0-10.0); %Neutrophils 75.7 % (42.0-75.0); Hematocrit 32.7 % (36.0-47.0); Hemoglobin 9.9 g/dL (12.0-16.0); Mean Corpuscular Hemoglobin 29.6 pg (27.0-31.0); Mean Corpuscular Volume 97.9 fL (78.0-98.0); Platelet Count 167 10x3/uL (130-400); Red Blood Cell (RBC) Count 3.34 mill/uL (4.20-5.40); White Blood Cell (WBC) Count 5.30 10x3/uL (4.8-10.8)
[2025-04-10 05:43] LABS: ALT (SGPT) 14 U/L (Less than 34); AST (SGOT) 23 U/L (11-34); Albumin 2.4 g/dL (3.1-4.5); Alkaline Phosphatase 199 U/L (40-110); Anion Gap 17 mmol/L (10-20); BUN (Urea Nitrogen) 50 mg/dL (7.0-18.7); Bilirubin, Total 0.3 mg/dL (0.3-1.2); Calc. Creatinine Clearance 21 mL/min (70-130); Calcium 7.2 mg/dL (7.8-10.44); Carbon Dioxide 25 mmol/L (22-29); Chloride 98 mmol/L (98-107); Globulin 2.3 g/dL (2.4-3.5); Glucose 132 mg/dL (70-105); Potassium 5.9 mmol/L (3.5-5.1); Sodium 134 mmol/L (136-145)
[2025-04-10 08:08] VITALS: BMI 31.8
[2025-04-10] MEDS: Albumin 25% 25 GM (100 mL) BOT IVPB PRN (10:31)
[2025-04-10 15:28] VITALS: BP 103/63; TEMP 98.2
== END 2025-04-10 18:18 | disposition home or self-care (01) | DRG 291 ==
LOC: ERS 12:47 → INTOOBSV 16:06 → OBS 16:06 → ERS 16:55 → OBS 17:35 → OBSVTOIN 04-08 13:01
PROVIDERS: ADMIT Emergency Medicine; ATTEND Emergency Medicine
PROC: 3E02340 Introduction of Influenza Vaccine into Muscle, Percutaneous Approach (ICD-10-PCS; 2025-04-07)
PROC: 30233J1 Transfusion of Nonautologous Serum Albumin into Peripheral Vein, Percutaneous Approach (ICD-10-PCS; 2025-04-08)
PROC: 5A1D70Z Performance of Urinary Filtration, Intermittent, Less than 6 Hours Per Day (ICD-10-PCS; 2025-04-08)
PROC: 3E03329 Introduction of Other Anti-infective into Peripheral Vein, Percutaneous Approach (ICD-10-PCS; 2025-04-08)
PROC: 0W9G3ZZ Drainage of Peritoneal Cavity, Percutaneous Approach (ICD-10-PCS; principal; 2025-04-09)
DX: I13.2 Hypertensive heart and chronic kidney disease with heart failure and with stage 5 chronic kidney disease, or end stage renal disease (principal); I50.43 Acute on chronic combined systolic (congestive) and diastolic (congestive) heart failure; N18.6 End stage renal disease; E87.1 Hypo-osmolality and hyponatremia; R18.8 Other ascites; N39.0 Urinary tract infection, site not specified; I69.351 Hemiplegia and hemiparesis following cerebral infarction affecting right dominant side; I42.9 Cardiomyopathy, unspecified; R00.1 Bradycardia, unspecified; K74.60 Unspecified cirrhosis of liver; E78.5 Hyperlipidemia, unspecified; M54.9 Dorsalgia, unspecified; Z99.2 Dependence on renal dialysis; D63.1 Anemia in chronic kidney disease; R79.89 Other specified abnormal findings of blood chemistry; Z23 Encounter for immunization; G25.81 Restless legs syndrome; E83.51 Hypocalcemia; Z68.31 Body mass index [BMI] 31.0-31.9, adult; F41.9 Anxiety disorder, unspecified; E11.22 Type 2 diabetes mellitus with diabetic chronic kidney disease; I25.10 Atherosclerotic heart disease of native coronary artery without angina pectoris; E87.5 Hyperkalemia; E88.09 Other disorders of plasma-protein metabolism, not elsewhere classified; E66.9 Obesity, unspecified; E11.51 Type 2 diabetes mellitus with diabetic peripheral angiopathy without gangrene; Z89.511 Acquired absence of right leg below knee; Z98.61 Coronary angioplasty status; Z98.51 Tubal ligation status; Z98.890 Other specified postprocedural states; Z98.891 History of uterine scar from previous surgery; Z79.01 Long term (current) use of anticoagulants; Z79.51 Long term (current) use of inhaled steroids; I25.2 Old myocardial infarction; Z88.1 Allergy status to other antibiotic agents; Z88.8 Allergy status to other drugs, medicaments and biological substances; Z91.040 Latex allergy status; Z91.048 Other nonmedicinal substance allergy status; Z79.899 Other long term (current) drug therapy; Z79.4 Long term (current) use of insulin; F31.9 Bipolar disorder, unspecified; F17.210 Nicotine dependence, cigarettes, uncomplicated
CPT/HCPCS: 36415; 36416; 49083; 71045; 80053; 81001; 83605; 83735; 83880; 84484; 85025; 86850; 86900; 86901; 87040; 87077; 87086; 87186; 90935; 93005; 96374; 96375; C1729; G0257; G0378; J0696; J1200; J1885; P9047

== ENCOUNTER → 2025-04-23 | Day surgery (SDC) | payer OTHER ==
[~2025-04-23] MED LIST changes: +Lidocaine 1% w/Epinephrine 1:100K 20 ML VIAL ONE; +Sodium Bicarbonate 2.5 MEQ/5 ML SDV ONE
== END ==
LOC: ULT 12:40
PROVIDERS: ATTEND Family Medicine
PROC: 0W9G3ZZ Drainage of Peritoneal Cavity, Percutaneous Approach (ICD-10-PCS; principal; 2025-04-23)
DX: K74.60 Unspecified cirrhosis of liver (principal); R18.8 Other ascites; I13.2 Hypertensive heart and chronic kidney disease with heart failure and with stage 5 chronic kidney disease, or end stage renal disease; I50.9 Heart failure, unspecified; N18.6 End stage renal disease; E11.22 Type 2 diabetes mellitus with diabetic chronic kidney disease; E11.40 Type 2 diabetes mellitus with diabetic neuropathy, unspecified; E11.319 Type 2 diabetes mellitus with unspecified diabetic retinopathy without macular edema; E11.628 Type 2 diabetes mellitus with other skin complications; E11.621 Type 2 diabetes mellitus with foot ulcer; L97.521 Non-pressure chronic ulcer of other part of left foot limited to breakdown of skin; F41.9 Anxiety disorder, unspecified; F32.A Depression, unspecified; F17.210 Nicotine dependence, cigarettes, uncomplicated; Z98.51 Tubal ligation status; Z86.73 Personal history of transient ischemic attack (TIA), and cerebral infarction without residual deficits; Z95.5 Presence of coronary angioplasty implant and graft; Z87.59 Personal history of other complications of pregnancy, childbirth and the puerperium; Z88.8 Allergy status to other drugs, medicaments and biological substances; Z91.048 Other nonmedicinal substance allergy status; Z79.02 Long term (current) use of antithrombotics/antiplatelets; Z79.899 Other long term (current) drug therapy
CPT/HCPCS: 49083; C1729

== ENCOUNTER → 2025-04-30 | Day surgery (SDC) | payer OTHER ==
[~2025-04-30] MED LIST changes: -Lidocaine 1% PF 5 ML VIAL ONE
[2025-04-30 15:01] VITALS: BP 127/72
== END ==
LOC: ULT 12:28
PROVIDERS: ATTEND Family Medicine
PROC: 0W9G3ZZ Drainage of Peritoneal Cavity, Percutaneous Approach (ICD-10-PCS; principal; 2025-04-30)
DX: K74.60 Unspecified cirrhosis of liver (principal); R18.8 Other ascites; E11.40 Type 2 diabetes mellitus with diabetic neuropathy, unspecified; L97.521 Non-pressure chronic ulcer of other part of left foot limited to breakdown of skin; E11.22 Type 2 diabetes mellitus with diabetic chronic kidney disease; N18.6 End stage renal disease; S81.801A Unspecified open wound, right lower leg, initial encounter; E11.319 Type 2 diabetes mellitus with unspecified diabetic retinopathy without macular edema; E11.621 Type 2 diabetes mellitus with foot ulcer; E11.628 Type 2 diabetes mellitus with other skin complications; Z91.81 History of falling; Z79.4 Long term (current) use of insulin; Z79.899 Other long term (current) drug therapy; Z91.048 Other nonmedicinal substance allergy status; Z91.040 Latex allergy status; Z88.1 Allergy status to other antibiotic agents
CPT/HCPCS: 49083

== ENCOUNTER → 2025-05-07 | Day surgery (SDC) | payer OTHER ==
[~2025-05-07] MED LIST changes: +Lidocaine 1% PF 5 ML VIAL ONE; -Lidocaine 1% w/Epinephrine 1:100K 20 ML VIAL ONE
[2025-05-07 14:30] VITALS: TEMP 97.1
[2025-05-07 15:03] VITALS: BP 137/79
== END ==
LOC: ULT 13:12
PROVIDERS: ATTEND Family Medicine
PROC: 0W9G30Z Drainage of Peritoneal Cavity with Drainage Device, Percutaneous Approach (ICD-10-PCS; principal; 2025-05-07)
DX: R18.8 Other ascites (principal); E11.40 Type 2 diabetes mellitus with diabetic neuropathy, unspecified; E11.22 Type 2 diabetes mellitus with diabetic chronic kidney disease; I12.0 Hypertensive chronic kidney disease with stage 5 chronic kidney disease or end stage renal disease; N18.6 End stage renal disease; E11.319 Type 2 diabetes mellitus with unspecified diabetic retinopathy without macular edema; E11.621 Type 2 diabetes mellitus with foot ulcer; E11.628 Type 2 diabetes mellitus with other skin complications; F17.210 Nicotine dependence, cigarettes, uncomplicated; Z79.899 Other long term (current) drug therapy; Z88.8 Allergy status to other drugs, medicaments and biological substances; Z91.048 Other nonmedicinal substance allergy status
CPT/HCPCS: 49083; C1729

== ENCOUNTER 2025-05-14 13:48 | Day surgery (SDC) | payer OTHER ==
[2025-05-14] MEDS ORDERED: Lidocaine 1% PF 5 ML VIAL ONE (13:50)
[2025-05-14] MEDS ORDERED: Sodium Bicarbonate 2.5 MEQ/5 ML SDV ONE (13:50)
== END 2025-05-14 16:00 | disposition home or self-care (01) ==
LOC: ULT 13:48
PROVIDERS: ATTEND Family Medicine
DX: R18.8 Other ascites (principal); K74.60 Unspecified cirrhosis of liver
CPT/HCPCS: 49083; C1729

== ENCOUNTER → 2025-05-21 | Day surgery (SDC) | payer OTHER ==
[2025-05-21 14:27] LABS: #Basophils 0.04 10x3/uL (0.0-0.2); #Eosinophils 0.05 10x3/uL (0.0-0.7); #Monocytes 0.21 10x3/uL (0.11-0.59); #Neutrophils 2.73 10x3/uL (1.40-6.50); %Basophils 1.1 % (0.0-1.0); %Eosinophils 1.4 % (0.0-10.0); %Lymphocytes 17.6 % (21.0-51.0); %Monocytes 5.7 % (0.0-10.0); %Neutrophils 73.7 % (42.0-75.0); Hematocrit 35.8 % (36.0-47.0); Hemoglobin 10.9 g/dL (12.0-16.0); Mean Corpuscular Hemoglobin 29.6 pg (27.0-31.0); Mean Corpuscular Volume 97.3 fL (78.0-98.0); Platelet Count 193 10x3/uL (130-400); Red Blood Cell (RBC) Count 3.68 mill/uL (4.20-5.40); White Blood Cell (WBC) Count 3.70 10x3/uL (4.8-10.8)
[2025-05-21 14:40] LABS: INR-International Normal Ratio 1.1; Prothrombin Time 14.6 sec (12.0-14.7)
[2025-05-21 14:42] LABS: PTT 29.2 sec (22.9-36.1)
[2025-05-21 15:17] VITALS: BP 97/60
== END ==
LOC: ULT 13:30
PROVIDERS: ATTEND Family Medicine
PROC: 0W9G3ZZ Drainage of Peritoneal Cavity, Percutaneous Approach (ICD-10-PCS; principal; 2025-05-21)
DX: K74.60 Unspecified cirrhosis of liver (principal); R18.8 Other ascites; I12.0 Hypertensive chronic kidney disease with stage 5 chronic kidney disease or end stage renal disease; N18.6 End stage renal disease; E11.22 Type 2 diabetes mellitus with diabetic chronic kidney disease; E11.40 Type 2 diabetes mellitus with diabetic neuropathy, unspecified; E11.319 Type 2 diabetes mellitus with unspecified diabetic retinopathy without macular edema; E11.628 Type 2 diabetes mellitus with other skin complications; E11.621 Type 2 diabetes mellitus with foot ulcer; L97.521 Non-pressure chronic ulcer of other part of left foot limited to breakdown of skin; F41.9 Anxiety disorder, unspecified; F32.A Depression, unspecified; F17.210 Nicotine dependence, cigarettes, uncomplicated; Z86.73 Personal history of transient ischemic attack (TIA), and cerebral infarction without residual deficits; Z95.5 Presence of coronary angioplasty implant and graft; Z98.51 Tubal ligation status; Z88.8 Allergy status to other drugs, medicaments and biological substances; Z91.048 Other nonmedicinal substance allergy status; Z79.899 Other long term (current) drug therapy
CPT/HCPCS: 49083; 85025; 85610; 85730; C1729

== ENCOUNTER → 2025-05-26 | Day surgery (SDC) | payer OTHER ==
[2025-05-26 16:03] VITALS: BP 123/75
== END ==
LOC: ULT 13:43
PROVIDERS: ATTEND Family Medicine
PROC: 0W9G30Z Drainage of Peritoneal Cavity with Drainage Device, Percutaneous Approach (ICD-10-PCS; principal; 2025-05-26)
DX: K74.60 Unspecified cirrhosis of liver (principal); R18.8 Other ascites; I12.0 Hypertensive chronic kidney disease with stage 5 chronic kidney disease or end stage renal disease; N18.6 End stage renal disease; E11.22 Type 2 diabetes mellitus with diabetic chronic kidney disease; E11.40 Type 2 diabetes mellitus with diabetic neuropathy, unspecified; E11.319 Type 2 diabetes mellitus with unspecified diabetic retinopathy without macular edema; E11.628 Type 2 diabetes mellitus with other skin complications; E11.621 Type 2 diabetes mellitus with foot ulcer; F41.9 Anxiety disorder, unspecified; F32.A Depression, unspecified; F17.210 Nicotine dependence, cigarettes, uncomplicated; Z98.51 Tubal ligation status; Z95.5 Presence of coronary angioplasty implant and graft; Z88.8 Allergy status to other drugs, medicaments and biological substances; Z79.85 Long-term (current) use of injectable non-insulin antidiabetic drugs; Z79.899 Other long term (current) drug therapy
CPT/HCPCS: 49083

== ENCOUNTER 2025-06-04 13:20 | Day surgery (SDC) | payer OTHER ==
[2025-06-04] MEDS ORDERED: Sodium Bicarbonate 2.5 MEQ/5 ML SDV ONE (13:37)
[2025-06-04] MEDS ORDERED: Lidocaine 1% PF 5 ML VIAL ONE (13:37)
== END 2025-06-04 15:00 | disposition home or self-care (01) ==
LOC: ULT 13:20
PROVIDERS: ATTEND Family Medicine
PROC: 0W9G30Z Drainage of Peritoneal Cavity with Drainage Device, Percutaneous Approach (ICD-10-PCS; principal; 2025-06-04)
DX: K74.60 Unspecified cirrhosis of liver (principal); R18.8 Other ascites; E11.40 Type 2 diabetes mellitus with diabetic neuropathy, unspecified; L97.521 Non-pressure chronic ulcer of other part of left foot limited to breakdown of skin; E11.22 Type 2 diabetes mellitus with diabetic chronic kidney disease; N18.6 End stage renal disease; S81.801A Unspecified open wound, right lower leg, initial encounter; E11.319 Type 2 diabetes mellitus with unspecified diabetic retinopathy without macular edema; E11.621 Type 2 diabetes mellitus with foot ulcer; E11.628 Type 2 diabetes mellitus with other skin complications; F17.210 Nicotine dependence, cigarettes, uncomplicated; Z79.899 Other long term (current) drug therapy; Z79.4 Long term (current) use of insulin; Z79.84 Long term (current) use of oral hypoglycemic drugs; Z88.8 Allergy status to other drugs, medicaments and biological substances; Z91.048 Other nonmedicinal substance allergy status; Z91.041 Radiographic dye allergy status; Z88.1 Allergy status to other antibiotic agents
CPT/HCPCS: 49083; C1729

== ENCOUNTER 2025-06-11 12:50 | Day surgery (SDC) | payer OTHER ==
[2025-06-11] MEDS ORDERED: Sodium Bicarbonate 2.5 MEQ/5 ML SDV ONE (14:22)
[2025-06-11] MEDS ORDERED: Lidocaine 1% PF 5 ML VIAL ONE (14:22)
== END 2025-06-11 15:25 | disposition home or self-care (01) ==
LOC: ULT 12:50
PROVIDERS: ATTEND Family Medicine
PROC: 0W9G3ZZ Drainage of Peritoneal Cavity, Percutaneous Approach (ICD-10-PCS; principal; 2025-06-11)
DX: K74.60 Unspecified cirrhosis of liver (principal); R18.8 Other ascites; I13.2 Hypertensive heart and chronic kidney disease with heart failure and with stage 5 chronic kidney disease, or end stage renal disease; I50.9 Heart failure, unspecified; N18.6 End stage renal disease; I25.10 Atherosclerotic heart disease of native coronary artery without angina pectoris; E11.22 Type 2 diabetes mellitus with diabetic chronic kidney disease; E11.40 Type 2 diabetes mellitus with diabetic neuropathy, unspecified; E11.628 Type 2 diabetes mellitus with other skin complications; E11.319 Type 2 diabetes mellitus with unspecified diabetic retinopathy without macular edema; E11.621 Type 2 diabetes mellitus with foot ulcer; L97.521 Non-pressure chronic ulcer of other part of left foot limited to breakdown of skin; E78.5 Hyperlipidemia, unspecified; F41.9 Anxiety disorder, unspecified; F32.A Depression, unspecified; F17.210 Nicotine dependence, cigarettes, uncomplicated; Z86.73 Personal history of transient ischemic attack (TIA), and cerebral infarction without residual deficits; Z88.8 Allergy status to other drugs, medicaments and biological substances; Z91.048 Other nonmedicinal substance allergy status; Z79.899 Other long term (current) drug therapy
CPT/HCPCS: 49083; C1729

== ENCOUNTER 2025-06-22 12:16 | Day surgery (SDC) | payer OTHER ==
[2025-06-22] MEDS ORDERED: Lidocaine 1% PF 5 ML VIAL ONE (13:28)
[2025-06-22] MEDS ORDERED: Sodium Bicarbonate 2.5 MEQ/5 ML SDV ONE (13:28)
== END 2025-06-22 15:00 | disposition home or self-care (01) ==
LOC: ULT 12:16
PROVIDERS: ATTEND Family Medicine
PROC: 0W9G30Z Drainage of Peritoneal Cavity with Drainage Device, Percutaneous Approach (ICD-10-PCS; principal; 2025-06-22)
DX: K74.60 Unspecified cirrhosis of liver (principal); R18.8 Other ascites; I10 Essential (primary) hypertension; E11.40 Type 2 diabetes mellitus with diabetic neuropathy, unspecified; E11.319 Type 2 diabetes mellitus with unspecified diabetic retinopathy without macular edema; E11.621 Type 2 diabetes mellitus with foot ulcer; E11.628 Type 2 diabetes mellitus with other skin complications; N18.6 End stage renal disease; F17.210 Nicotine dependence, cigarettes, uncomplicated; Z88.8 Allergy status to other drugs, medicaments and biological substances; Z91.048 Other nonmedicinal substance allergy status
CPT/HCPCS: 49083; C1729